=== PATIENT | male | born 1940 | race Caucasian/White ===

== ENCOUNTER 2022-02-27 09:45 | Outpatient (CLI) | payer MEDICARE, BC, SELFPAY ==
[2022-02-27 13:03] LABS: Cholesterol* 173 mg/dL (90-199)
[2022-02-27 13:04] LABS: HDL Cholesterol* 36 mg/dL (>=40); LDL Cholesterol Calculated 110 mg/dL (<100); Triglycerides* 133 mg/dL (40-149)
== END 2022-02-27 09:46 | disposition home or self-care (01) ==
PROVIDERS: PCP Family Medicine; Visit Provider Family Medicine
DX: E78.5 Hyperlipidemia, unspecified (principal)
CPT/HCPCS: 80061

== ENCOUNTER 2022-03-19 02:20 | Emergency (ER) | payer MEDICARE, BC, SELFPAY ==
[2022-03-19] VITALS (26 sets, daily range): BP systolic 133–190; BP diastolic 61–125; PULSE 57–73; RESP 16–22; TEMP 37.1; O2SAT 85–100; BMI 25.8
--- NOTE | 2022-03-19 02:35 | ED_ITS ---
HPI - Chest Pain General Time Seen by Provider: 02:36 Date Seen: 03/19/22 Chief Complaint: Chest Pain Stated Complaint: Chest Pain Time Seen by Provider: 03/19/22 02:24 Source: patient, EMS, RN notes reviewed and old records reviewed Mode of arrival: EMS Limitations: no limitations History of Present Illness HPI narrative: Mr. Daley is a very pleasant 81-year-old gentleman with a history of known coronary artery disease, history of bypass, type 2 diabetes as well as hypertension and hyperlipidemia who comes to the emergency room via EMS for evaluation regarding chest pain. Patient notes the onset of chest pain shortly after midnight. He rated it as 6/10. It was associated with 1 episode of vomiting and this helped ease the discomfort somewhat. Patient did take aspirin 4 baby aspirin at home after calling 911. EMS get give him 1 nitroglycerin and this decreased his chest pain down to 3/10. The chest pain is now dissipated but patient notes some nausea that is persisting. He notes that he has been dealing with what he thinks is indigestion. He blames this on an egg salad sandwich from earlier yesterday. He denies any diarrhea or fever. Patient did have a history of a CABG approximately 5 years ago. No complications from that. He also has hypertension and hyperlipidemia as well as type 2 diabetes. Patient does have a prescription for Cialis. Last used on WednesdayMarch 15. Tonight blood pressure improved from 190 systolic to 122 after nitroglycerin in the field. Patient describes chest pain as lower substernal without radiation to the back jaw or arms. Denies abdominal pain at this time. No dizziness or lightheadedness. Related Data Home Medications Medication Instructions Recorded Confirmed aspirin 81 mg chewable tablet 1 tab PO DAILY 02/27/22 02/27/22 cholecalciferol (vitamin D3) 10 10 mcg PO QDAY 02/27/22 02/27/22 mcg (400 unit) capsule dorzolamide-timolol (PF) 2 %-0.5 % 1 drp ophthalmic (eye) Q12H 02/27/22 02/27/22 eye drops in a dropperette multivitamin (Multiple Vitamins 1 tab PO QAM 02/27/22 02/27/22 tablet) tadalafil 20 mg tablet 20 mg PO ONCE PRN 02/27/22 02/27/22 thiamine HCl (vitamin B1) 100 mg 100 mg PO QDAY 02/27/22 02/27/22 tablet triamcinolone acetonide 0.1 % 1 applic topical BID 02/27/22 02/27/22 topical cream Previous Rx's Medication Instructions Recorded lisinopril 5 mg tablet 5 mg PO BID #180 tabs 02/27/22 metformin 500 mg tablet 500 mg PO BID #180 tabs 02/27/22 metoprolol succinate 25 mg 25 mg PO DAILY #90 tabs 02/27/22 tablet,extended release 24 hr Allergies Allergy/AdvReac Type Severity Reaction Status Date / Time No Known Allergies Allergy Unknown Unknown Uncoded 03/19/22 04:09 Review of Systems Status of ROS Reports: 10 or more systems reviewed and unremarkable except as noted in History and below Narrative COVID 1 month ago. Denies recent travel, calf tenderness, immobility or history of DVT. Const Denies: fever or chills Eyes Denies: change in vision ENMT Denies: throat pain or difficulty swallowing Cardio Reports: chest pain; Denies: edema, swelling of feet/ankles or shortness of breath with exertion Resp Denies: shortness of breath or cough GI Reports: nausea and vomiting; Denies: abdominal pain, diarrhea or difficulty swallowing Denies: painful urination Musculo Denies: back pain, extremity pain or extremity swelling Integ/Breast Denies: rash Neuro Denies: headache, numbness in extremities or weakness in extremities Endo Denies: excessive urination [facility] Medical History Benign paroxysmal positional vertigo H/O sebaceous cyst Surgical History Status post cataract extraction Status post coronary artery bypass graft Social History Smoking Status: Former smoker Do you use any of these nicotine containing products: None How often do you have a drink containing alcohol: 2-4 times a month How often do you have six or more drinks on one occasion: Never AUDIT-C Alcohol total score: 2 Non-prescribed substance use: denies use Little interest or pleasure in doing things: not at all Feeling down, depressed, or hopeless: not at all Exam Narrative Exam Narrative: Patient is alert and oriented. GCS of 15. Face is symmetrical. Appropriate responses. Neck is supple without lymphadenopathy. Heart with a bradycardic rate but regular rhythm. Lungs are clear in all lung de [place]. Chest has well-healed sternal scar. Abdomen is protuberant but soft and nontender. Negative Alvarez sign. Lower extremities with no evidence of edema. Calf without evidence of discomfort with palpation and negative Homans sign. Const Vital Signs, click to edit/add: Vital Signs - 24 hr 03/19/22 02:25 03/19/22 02:37 03/19/22 03:17 Temperature 98.7 F Pulse Rate 59 L Pulse Rate [Left Pulse Oximeter] 57 L Respiratory Rate 16 Blood Pressure 160/68 H Blood Pressure [Left Upper Arm] 135/69 Pulse Oximetry 96 96 97 Oxygen Delivery Method Room Air 03/19/22 03:32 03/19/22 04:02 03/19/22 04:22 Temperature Pulse Rate 59 L 67 60 Pulse Rate [Left Pulse Oximeter] Respiratory Rate Blood Pressure 162/81 H 176/87 H 190/84 H Blood Pressure [Left Upper Arm] Pulse Oximetry 98 96 96 Oxygen Delivery Method 03/19/22 04:27 03/19/22 04:42 03/19/22 05:02 Temperature Pulse Rate 60 61 61 Pulse Rate [Left Pulse Oximeter] Respiratory Rate Blood Pressure 165/85 H 174/80 H 167/81 H Blood Pressure [Left Upper Arm] Pulse Oximetry 96 96 94 Oxygen Delivery Method 03/19/22 05:22 03/19/22 05:42 03/19/22 06:02 Temperature Pulse Rate 61 63 59 L Pulse Rate [Left Pulse Oximeter] Respiratory Rate Blood Pressure 175/85 H 173/79 H 181/85 H Blood Pressure [Left Upper Arm] Pulse Oximetry 95 94 96 Oxygen Delivery Method 03/19/22 06:15 03/19/22 07:02 Temperature Pulse Rate 59 L 60 Pulse Rate [Left Pulse Oximeter] Respiratory Rate Blood Pressure 160/78 H Blood Pressure [Left Upper Arm] Pulse Oximetry 95 93 Oxygen Delivery Method Documenting provider has reviewed patient's vital signs: yes Course Course Hospital Course: Patient noted to have the onset of chest pain associated with nausea 1 episode of vomiting and partially relieved by nitroglycerin. Initial troponin is negative. EKG shows right bundle-branch block. Will do formal cardiac rule out workup. With 1st set of troponin being negative will allow GI cocktail. Otherwise, chest x-ray, CBC, comprehensive panel, magnesium, IV and Zofran admi nistration. Vital Signs Vital signs: Initial Vital Signs Temperature 98.7 F 03/19/22 02:25 Temperature Source Temporal Artery Scan 03/19/22 02:25 Pulse Rate 57 L 03/19/22 02:25 Pulse Rhythm 03/19/22 02:25 Respiratory Rate 16 03/19/22 02:25 Blood Pressure 135/69 03/19/22 02:25 Blood Pressure Mean 91 03/19/22 02:25 Blood Pressure Position Sitting 03/19/22 02:25 Pulse Oximetry 96 03/19/22 02:25 Oxygen Delivery Method 03/19/22 02:25 Vital Signs Temperature 98.7 F 03/19/22 02:25 Pulse Rate 57 L 03/19/22 02:25 Respiratory Rate 16 03/19/22 02:25 Blood Pressure 135/69 03/19/22 02:25 Pulse Oximetry 96 03/19/22 02:25 Oxygen Delivery Method 03/19/22 02:25 Temperature 98.7 F 03/19/22 02:25 Pulse Rate 60 03/19/22 07:02 Respiratory Rate 16 03/19/22 02:25 Blood Pressure 160/78 H 03/19/22 07:02 Pulse Oximetry 93 03/19/22 07:02 Oxygen Delivery Method 03/19/22 02:25 MDM - Chest Pain MDM Narrative Medical decision making narrative: 1. Chest pain-EKGs are reassuring and cardiac enzymes are negative x2. I believe this is most likely biliary colic. Chest CT with no evidence acute aortic pathology. Patient did take aspirin 324 mg at home prior to EMS ride to [facility]. Patient noted discomfort in the abdominal area after chest pain relieved along with nausea. Toradol 15 mg IV given and patient has improvement of discomfort. Nausea improved with Zofran 4 mg IV. 2. Cholelithiasis-noted initially on CT these are confirmed on ultrasound along with gallbladder wall being at the upper limits of normal. No pericholecystic fluid. HIDA scan pending per surgeon request. 3. Disposition-signed out to my partner Dr. Devine for further disposition. HIDA scan scheduled at 1100 hours. Medical Records Data Attestation: I reviewed the patient's medical records. Lab Data Attestation: I reviewed the patient's lab results. Labs: Lab Results 03/19/22 03/19/22 03/19/22 Range/Units 02:30 02:30 02:37 WBC 12.38 H (4.50-11.00) K/uL RBC 4.75 (4.30-5.90) m/uL Hgb 13.2 L (13.5-17.5) gm/dL Hct 41.2 (37.0-53.0) % MCV 87 (80-100) fL MCH 28 (26-34) pg MCHC 32 (32-36) gm/dL RDW Coeff of Elizabeth 14.5 (11.5-15.5) % Plt Count 215 (140-440) K/uL Neut % (Auto) 81.7 H (42.0-72.0) % Lymph % (Auto) 9.4 L (20-44) % [place] % (Auto) 6.9 (0.0-11.0) % Eos % (Auto) 1.1 (0.0-7.0) % Baso % (Auto) 0.2 (0.0-3.0) % Neut # (Auto) 10.10 H (1.7-7.0) K/uL Lymph # (Auto) 1.20 (0.90-2.90) K/uL [place] # (Auto) 0.90 (0.00-0.90) K/UL Eos # (Auto) 0.10 (0.00-0.50) K/uL Baso # (Auto) 0.00 (0.00-0.30) K/uL Abs Immat Gran (auto) 0.10 (0.00-0.30) K/uL Imm/Tot Granulo (auto) 0.7 % Sodium 139 (135-149) mmol/L Potassium 3.8 (3.6-5.1) mmol/L Chloride 102 (96-114) mmol/L Carbon Dioxide 28 (20-32) mmol/L BUN 26 (7-30) mg/dL Creatinine 0.8 (0.5-1.5) mg/dL Estimated Creat Clear 57.79 Estimated GFR 88 ml/min Glucose 189 H (60-115) mg/dL Calcium 9.0 (8.4-10.6) mg/dL Magnesium 1.8 (1.5-2.6) mg/dL Total Bilirubin 0.4 (0.1-1.5) mg/dL AST 26 (12-35) U/L ALT 24 (4-50) U/L Alkaline Phosphatase 106 (40-150) U/L Total Protein 6.9 (6.0-8.3) g/dL Albumin 4.1 (3.3-5.0) g/dL Amylase 67 (18-89) U/L Lipase 106 (23-300) U/L POC Troponin I 0.00 L (0.01-0.04) ng/ml 03/19/22 Range/Units 05:53 WBC (4.50-11.00) K/uL RBC (4.30-5.90) m/uL Hgb (13.5-17.5) gm/dL Hct (37.0-53.0) % MCV (80-100) fL MCH (26-34) pg MCHC (32-36) gm/dL RDW Coeff of Elizabeth (11.5-15.5) % Plt Count (140-440) K/uL Neut % (Auto) (42.0-72.0) % Lymph % (Auto) (20-44) % [place] % (Auto) (0.0-11.0) % Eos % (Auto) (0.0-7.0) % Baso % (Auto) (0.0-3.0) % Neut # (Auto) (1.7-7.0) K/uL Lymph # (Auto) (0.90-2.90) K/uL [place] # (Auto) (0.00-0.90) K/UL Eos # (Auto) (0.00-0.50) K/uL Baso # (Auto) (0.00-0.30) K/uL Abs Immat Gran (auto) (0.00-0.30) K/uL Imm/Tot Granulo (auto) % Sodium (135-149) mmol/L Potassium (3.6-5.1) mmol/L Chloride (96-114) mmol/L Carbon Dioxide (20-32) mmol/L BUN (7-30) mg/dL Creatinine (0.5-1.5) mg/dL Estimated Creat Clear Estimated GFR ml/min Glucose (60-115) mg/dL Calcium (8.4-10.6) mg/dL Magnesium (1.5-2.6) mg/dL Total Bilirubin (0.1-1.5) mg/dL AST (12-35) U/L ALT (4-50) U/L Alkaline Phosphatase (40-150) U/L Total Protein (6.0-8.3) g/dL Albumin (3.3-5.0) g/dL Amylase (18-89) U/L Lipase (23-300) U/L POC Troponin I 0.01 (0.01-0.04) ng/ml Imaging Data Chest x-ray: Attestation: I have reviewed the pertinent imaging results. My impression: By my read no acute infiltrates or widened mediastinum. Radiologist's impression: Cardiovascular and mediastinum: Heart size and vasculature are normal in caliber and appearance. Postsurgical changes of CABG. Lungs and pleural spaces: Lungs are clear. No sign of infiltrate or mass. No sign of pleural effusion. No pneumothorax.? Bones and soft tissues: No significant findings. IMPRESSION: No acute airspace disease. CT Chest/Ab/Pelvis: My impression: Gallstones present. Radiologist's impression: Chest: Normal aortic caliber. Central pulmonary arteries patent. Exam is not tailored for assessment of pulmonary embolus. Sternotomy. Coronary artery bypass graft changes. Calcified granuloma subpleural lateral left upper lobe. Mild reticular peripheral interstitial prominence suggesting some mild chronic fibrosis. No acute cardiopulmonary disease. No fracture. Abdomen and pelvis: Small layering calcified gallstones in the slightly enlarged gallbladder lumen. No wall thickening or inflammation. No ductal dilatation. No dilated or inflamed large or small bowel. Left colon diverticula. Normally enhancing kidneys. Prominent atherosclerosis of the non aneurysmal aorta. No significant bone lesion. IMPRESSION: 1. No significant acute findings to account for reported symptoms. 2. Cholelithiasis. 3. Colonic diverticulosis. 4. Moderately prominent diffuse atherosclerotic vascular calcification. ECG Data Attestation: I personally reviewed and interpreted this ECG as follows: ECG interpretation date: 03/19/22 ECG interpretation time: 02:37 Interpretation: EKG 1. Shows sinus bradycardia at a rate of 56. Evidence of right bundle-branch block. Otherwise I do not note any acute ST or T-wave changes. Second EKG by my read shows sinus rhythm at a rate of 61. Right bundle-branch block present Discharge Plan Discharge Prescriptions: No Action aspirin 81 mg tablet,chewable 1 tab PO DAILY multivitamin [Multiple Vitamins] Tablet 1 tab PO QAM tadalafil 20 mg tablet 20 mg PO ONCE PRN Rx Instructions: TAKE ONE TABLET 30 MIN TO 36 HRS PRIOR TO INTERCOURSE thiamine HCl (vitamin B1) 100 mg tablet 100 mg PO QDAY triamcinolone acetonide 0.1 % cream 1 applic topical BID cholecalciferol (vitamin D3) 10 mcg (400 unit) capsule 10 mcg PO QDAY dorzolamide-timolol (PF) 2-0.5 % dropperette 1 drp ophthalmic (eye) Q12H lisinopril 5 mg tablet 5 mg PO BID Qty: 180 3RF metformin 500 mg tablet 500 mg PO BID Qty: 180 0RF Rx Instructions: Pt taking 1 tab in the AM and 2 tabs in the PM metoprolol succinate 25 mg tablet extended release 24 hr 25 mg PO DAILY Qty: 90 3RF Follow Up/Referrals: Maxwell Quinones MD [Primary Care Provider] -
--- NOTE | 2022-03-19 02:37 | CRLHL7_ITS ---
For Patients: As a result of the Century Cures Act, medical imaging exams and procedure reports are released immediately into your electronic medical record. You may view this report before your referring provider. If you have questions, please contact your health care provider. INDICATION: Chest pain. TECHNIQUE: Chest 1 view. COMPARISON: None. FINDINGS: Cardiovascular and mediastinum: Heart size and vasculature are normal in caliber and appearance. Postsurgical changes of CABG. Lungs and pleural spaces: Lungs are clear. No sign of infiltrate or mass. No sign of pleural effusion. No pneumothorax. Bones and soft tissues: No significant findings. IMPRESSION: No acute airspace disease. Dictated by Eric Spears MD @ 03/19/2022 3:08:40 AM (Electronically Signed)
[2022-03-19] MEDS: ONDANSETRON 2 MG/ML inj 4 MG IVP (02:41)
--- OUTSIDE RECORDS SUMMARY | 2022-03-19 02:53 | XMS_ITS | Encounter Summary ---
:1940 Author Organization [facility] Address [address] [place] [address] Care Team Providers Name Role Phone Unavailable Primary Care Provider Unavailable Encounter Details Date Type Department Care Team Description 07/02/2020 Immunization Business Service Freda Kaur Encount er For COVID-19 Center in [place] Vaccine Immunization [place] [id number] [facility] [address] [place] [id number] Social History Tobacco Use Types Packs/Day Years Used Date Smoking Tobacco: Former Sex Assigned at Date Recorded Not on file documented as of this encounter Plan of Treatment Not on filedocumented as of this encounter Visit Diagnoses Diagnosis Encounter For COVID-19 Vaccine Immunizat ion documented in this encounter
--- OUTSIDE RECORDS SUMMARY | 2022-03-19 02:53 | XMS_ITS | Encounter Summary ---
:1940 Author Organization [facility] Address [address] [place] [address] Care Team Providers Name Role Phone Unavailable Primary Care Provider Unavailable Reason for Referral Specialty Diagnoses / Procedures Referred By Contact Refer red To Contact Sugar Soler M.D. [facility] Region [address] [place] [address] Referral ID Status Reason Start Date Expiration Date Visits Requ ested Visits Authorized Encounter Details Date Type Department Care Team Description 02/03/2021 Orders Only [facility] PCP [facility] M[facility] Richie Sheikh D.O. [address] [place] [address] (Wo rk) Social History Tobacco Use Types Packs/Day Years Used Date Smoking Tobacco: Former Sex Assigned at Date Recorded Not on file documented as of this encounter Plan of Treatment Scheduled Referrals Name Type Priority Associated Order Schedule Diagnoses Covid immunization Outpatient Referral Routine Ex pected: office visit Booster [phone] (Approximate), Expires: 02/03/2022 documented as of this encounter Visit Diagnoses Not on filedocumented in this encounter
--- OUTSIDE RECORDS SUMMARY | 2022-03-19 02:53 | XMS_ITS | Encounter Summary ---
:1940 Author Organization [facility] Address [address] [place] [address] Care Team Providers Name Role Phone Unavailable Primary Care Provider Unavailable Encounter Details Date Type Department Care Team Description 04/02/2015 Hospital Encounter HX [facility] MAN Nate Hawkins M.D. [address] [place] [address] [phone] (Wo rk) Social History Tobacco Use Types Packs/Day Years Used Date Smoking Tobacco: Never Assessed Sex Assigned at Date Recorded Not on file documented as of this encounter Last Filed Vital Signs Vital Sign Reading Time Taken Comments Blood Pressure 147/83 04/02/2015 12:30 PM HAND BINDER CUTTER Pulse 58 04/02/2015 12:30 PM HAND BINDER CUTTER Temperature - - Respiratory Rate 20 04/02/2015 12:30 PM HAND BINDER CUTTER Oxygen Saturation - - Inhaled Oxygen Concentration - - Weight - - Height - - Body Mass Index - - documented in this encounter Discharge Summaries Toma Floyd R.N. - 04/02/2015 1:30 PM CST ED Discharge Instructions [place] [address] [place] [address] Name: MO DALEY Date of : 1940 12:00 PM Visit Date: 04/02/2015 11:01 AM [facility] Number: [id number] Address: [id number] [address] [facility] [phone] Primary Care Provider: PCP, ELSEWHERE IMPORTANT: [facility] in [place] would like to thank you for allowing us to assistyou with your healthcare needs. The following includes patient education materials and information regarding your injury/illness. Diagnosis: Follow-Up Instructions: With: Address: When: CALL 911 IMMEDIATELY IF 3 NITRO PILLS ARE REQUIRED TO CONTROL YOUR PAIN OR IF YOUR PAIN DOES NOT IMPROVE. Your Upcoming Appointments: Date Time Location Provider 04/16/2015 11:00 MAQN Echo MAQN Echo 1 Patient Education Materials: Fast-Acting Nitroglycerin Nitroglycerin relieves angina (chest pain) by getting more blood and oxygen to your heart. Fast-acting nitroglycerin can stop an angina attack. Follow the steps below for taking fast-acting nitroglycerin. Note: Your healthcare provider may give you slightly different instructions. If so, follow them carefully. To Stop an Angina Attack Sit down before you take your nitroglycerin. The medication may make you feel dizzy. If you use tablets: ?? Place one tablet under your tongue. Or place it between your lip and gum or between your cheek and gum. ?? Let the tablet dissolve all the way. Do not swallow or chew the tablet. ?? Do not eat, drink, smoke, or chew tobacco as the tablet is dissolving. If you use spray: ?? Open your mouth and hold the sprayer just in front of your mouth. ?? Press the button on the top. [place] once on or under your tongue. Do not inhale. ?? Close your mouth. Then wait a few seconds before you swallow. After taking one tablet or spraying once: ?? Continue sitting for 5 minutes. ?? If the angina goes away completely, rest for a while and continue your normal routine. Call 911 if your angina lasts longer than 5 minutes and 1 tablet or 1 spray has not relieved it. Do not delay--you may be having a heart attack, also known as acute myocardial infarction, or AMI! Afteryou call 911, take a second tablet. Or, spray a second time. Wait another 5 minutes. If the angina still does not go away, take a third tablet, or spray a third time. Do not take more than 3 tablets, or spray more than 3 times, within 15 minutes. Stay on the phone with 911 for further instructions. Precautions ?? Limit the amount of alcohol you drink. Too much alcohol can cause dizziness or fainting. ?? Tell your healthcare provider about any medications, supplements, or herbs you use. Nitroglycerincan interact with other medications and cause serious problems. NOTE: Do not take Viagra, Levitra, or Cialis at any time if you are on nitroglycerin treatment. The combination of nitroglycerin with Viagra, Levitra, or Cialis can cause a severe drop in blood pressure. This can lead to dizziness, fainting, heart attack, or stroke. ?? Check the expiration date. Nitroglycerin can lose its effectiveness over time. ?? Tell your doctor if your angina attacks last longer, occur more often, or are more severe. ?? [address] [address]. All rights reserved. This information is not intended as a substitute for professional medical care. Always follow your healthcare professional's instructions. What Is Angina? Angina is a warning that the heart muscle is not getting enough oxygen-rich blood. Medication, certain medical procedures, and lifestyle changes can help control angina. Talk to your doctor about how to prevent angina and what to do if you get it. How Does Angina Feel? Angina is often described as chest pain, but this can be misleading. Angina is not always painful, and it isnt always felt in the chest. Angina might feel like this: ?? Discomfort, aching, tightness, or pressure that comes and goes. You may feel this in your chest, back, abdomen, arm, shoulder, neck, or jaw. ?? More fatigue than usual for no clear reason ?? Shortness of breath while doing something that used to be easy ?? Heartburn, indigestion, nausea, or sweating If any of your symptoms lasts for more than a few minutes, or if they go away and come back, you could be having a heart attack, also known as acute myocardial infarction, or AMI. Call 911 right away! When Does Angina Happen? ?? Angina usually happens during activity. It can also occur when youre upset or after a large meal. ?? If angina starts occurring more frequently, lasts longer, or causes more discomfort, you may haveunstable angina. Its a sign that your heart problem may be getting worse. ?? [facility], [address] [place] [address]. All rights reserved. This information is not intended as a substitute for professional medical care. Always follow your healthcare professional's instructions. Consider Using Patient Online Services Patient Online Services is a secure online and Mobile application that lets you: ?? View lab and test results ?? View portions of your medical record including clinical notes, immunizations and discharge summaries ?? Request an appointment or medication refill ?? Review your appointment schedule ?? Send secure messages to your care team Its easy to create an account if you dont have one. Go to [email or web address] and click on Create Your Account. Then, follow the directions to complete the online form. Youll be asked for your [facility] number which you can find at the top of this document. ED Tests and Procedures: Order Status EKG-Lab Completed Automated Diff-5 Part Completed Basic Metabolic Panel Completed CBC (includes Auto Differential) Completed Troponin T Completed XR Chest 1 view portable Completed Discharge Prescriptions & Home Medications: Medication/Strength Dose Route Frequency Indications/Special Instructions/Comments/Notes multivitamin with minerals (Vitamin D with Minerals oral tablet, chewable) 1 tab(s) once a day aspirin (aspirin) 325 mg Oral once a day multivitamin (B-Complex 50) 1 tab(s) Oral once a day ascorbic acid (Vitamin C) multivitamin (multivitamin) Oral once a day nitroglycerin (nitroglycerin 0.4 mg sublingual tablet) 0.4 mg Sublingual every 5 minutes as needed for chest pain dorzolamide-timolol ophthalmic (dorzolamide-timolol ophthalmic) 1 drop Eye(Left) two times a day dorzolamide ophthalmic (dorzolamide ophthalmic) 1 drop(s) Eye(Left) two times a day latanoprost ophthalmic (Xalatan) 1 drop(s) Eye(Left) once a day (at bedtime) metoprolol (Toprol-XL 25 mg oral tablet, extended release) 25 mg Oral once a day lisinopril (lisinopril 20 mg oral tablet) 20 mg Oral once a day glipiZIDE (glipiZIDE 10 mg oral tablet, extended release) 10 mg Oral once a day metFORMIN (metFORMIN 500 mg oral tablet) 1 -2 tab(s) Oral two times a day Attention: If you have any medications at home not on this list, DO NOT take them until you contact your provider for clarification. Give a copy of your medication list to your primary care provider. Update your medication list any time medications or doses are changed and carry your medication list at all times in case of emergency. IMPORTANT: We examined and treated you today on an emergency basis only. This was not a substitute for, or an effort to provide, complete medical care. In most cases, you must let your doctor check youagain. Tell your doctor about any new or lasting problems. We cannot recognize and treat all injuries or illnesses in one Emergency Department visit. If you had special tests, such as EKG's or X- rays, we will review them again within 24 hours. We will call you if there are any new suggestions. Please follow the instructions above carefully. If you are being transferred to another facility, your follow up plan of care will be determined by the receiving facility. If you are a patient that is being discharged from the Emergency Department after receiving narcotics or other medications that may impair your judgment you may be a risk to yourself or others if you operate a motor vehicle. We recommend that you arrange a ride home with a responsible democrat. I, MORE, MO GARNETT , or responsible democrat have received this information and my questions havebeen answered. I have discussed any challenges I see with this plan with the nurse or physician. Patient Signature or Responsible Green Party/Relationship Date Time Provider Signature Date Time IMPORTANT: We examined and treated you today on an emergency basis only. This was not a substitute for, or an effort to provide, complete medical care. In most cases, you must let your doctor check youagain. Tell your doctor about any new or lasting problems. We cannot recognize and treat all injuries or illnesses in one Emergency Department visit. If you had special tests, such as EKG's or X- rays, we will review them again within 24 hours. We will call you if there are any new suggestions. Please follow the instructions above carefully. If you are being transferred to another facility, your follow up plan of care will be determined by the receiving facility. If you are a patient that is being discharged from the Emergency Department after receiving narcotics or other medications that may impair your judgment you may be a risk to yourself or others if you operate a motor vehicle. We recommend that you arrange a ride home with a responsible democrat. I, MO DALEY , or responsible democrat have received this information and my questions havebeen answered. I have discussed any challenges I see with this plan with the nurse or physician. Patient Signature or Responsible Green Party/Relationship Date Time Provider Signature Date Time This document has images extracted. Please consider using [employer] for all your patient education needs. Source: [facility] Via [employer] TechnologiesCHART Document Id: [id number] BINDER CUTTER Toma Floyd R.N. - 04/02/2015 1:30 PM CST ED Depart Summary [facility] Emergency Department Clinical Discharge Summary PERSON INFORMATION Name MO DALEY Age 74 Years 1940 12:00 PM Sex Male Language Togolese PCP PCP, ELSEWHERE Marital Status [id number] Visit Id Visit Reason Chest pain; Chest pain; chest pain on exertion Specialty Enc Type Emergency Med Service Emergency Medicine Referred by Track Group MAQN ED Discharge 04/02/2015 12:45 PM Tracking Id [id number] Checkout 04/02/2015 12:45 PM Checkin 04/02/2015 11:01 AM Acuity 3 -Urgent Dispo Type * Discharged to Home or Self Care Arrival 04/02/2015 11:01 AM Reg Status LOS 000 01:44 Address: [address] [place] [phone] Comment: PROVIDER INFORMATION Provider Role Provider Contact Time MIGUEL BRCIE STUNTMAN Nurse 04/02/15 11:08 NATE GUZMAN MD ED Provider 04/02/15 11:15 TOMA FLOYD STUNTMAN Nurse 04/02/15 11:55 DIAGNOSIS Comment: PATIENT EDUCATION INFORMATION Instructions: Fast-Acting Nitroglycerin; What Is Angina? Follow up: With: Address: When: CALL 911 IMMEDIATELY IF 3 NITRO PILLS ARE REQUIRED TO CONTROL YOUR PAIN OR IF YOUR PAIN DOES NOT IMPROVE. Source: [employer] Document Id: [id number] BINDER CUTTER documented in this encounter Nursing Notes Toma Floyd R.N. - 04/02/2015 3:13 PM CST Stress Echo Pt. was contacted and informed that his stress echo was moved up to Wednesday, 04/08 at 10:45 am. Instructed patient to check in at the front desk officer and that the stress test would be on 2nd floor in cardiology. Electronically Signed By: TOMA FLOYD RN On: 04/02/2015 03:16 PM Source: [employer] Document Id: [id number] BINDER CUTTER documented in this encounter ED Notes Toma Floyd R.N. - 04/02/2015 1:29 PM CST ED Disposition Summary ED Disposition Summary Entered On: 04/02/2015 13:29 HAND BINDER CUTTER Performed On: 04/02/2015 13:29 HAND BINDER CUTTER by TOMA FLOYD RN ED Disposition Summary Accompanied By : Alone Mode of Discharge : Ambulatory Transportation : Private vehicle Printed Discharge Instructions Given to Patient : Yes Patient Status at Discharge from ED : Improved TOMA FLOYD RN - 04/02/2015 13:29 HAND BINDER CUTTER Source: [employer] Document Id: [id number] HAND BINDER CUTTER!7 BINDER CUTTER Shahida Sorto R.N. - 04/02/2015 12:31 PM CST ED Nurse Reassess ED Nurse Reassess Entered On: 04/02/2015 12:31 HAND BINDER CUTTER Performed On: 04/02/2015 12:31 HAND BINDER CUTTER by SHAHIDA SORTO RN Pain Assessment Pain Symptoms : No SHAHIDA SORTO RN - 04/02/2015 12:31 HAND BINDER CUTTER Source: [facility] POWERCHART Document Id: [id number] HAND BINDER CUTTER!3 BINDER CUTTER Nate Guzman M.D. - 04/02/2015 11:16 AM CST Chest pain Document Contains Addenda Patient: MO DALEY Age: 74 years Sex: Male : 1940 Author: NATE GUZMAN MD Attachments: None Basic Information Time seen: Immediately upon arrival. History source: Patient. Arrival mode: Private vehicle. History limitation: None. Additional information: Chief Complaint from Nursing Triage Note : Chief Complaint Description 04/02/2015 11:09 HAND BINDER CUTTER Chief Complaint Description Patient presents stating he has chest pain with activity; today it happened when he walked 100 [address] his barn. Intermittent pain with exertion over last 2-3 days. Currently denies chest pain or dizziness. . History of Present Illness The patient presents with chest pain. The onset was occurs with activity over the last 3 days - no pain at rest. The course/duration of symptoms is fluctuating in intensity. Location: Anterior substernal chest. Radiating pain: none. The character of symptoms is pressure. The degree at onset was moderate. The degree at maximum was moderate. The degree at present is none. The exacerbating factor is exertion. The relieving factor is rest. Risk factors consist of hypertension, hyperlipidemia and pre-diabetes. Prior episodes: as noted above. Therapy today full strength aspirin prior to arrival. Associated symptoms: none. Additional history: pt admits he does not always take his medications as prescribed. Review of Systems Constitutional symptoms: Negative except as documented in HPI. Skin symptoms: Negative except as documented in HPI. Eye symptoms: Negative except as documented in HPI. ENMT symptoms: Negative except as documented in HPI. Respiratory symptoms: Negative except as documented in HPI. Cardiovascular symptoms: Negative except as documented in HPI. Gastrointestinal symptoms: Negative except as documented in HPI. Additional review of systems information: All other systems reviewed and otherwise negative. Health Status Allergies: Allergic Reactions (Selected) No Known Medication Allergies. Past Medical/ Family/ Social History Medical history: No active or resolved past medical history items have been selected or recorded.. Surgical history: No active procedure history items have been selected or recorded.. Family history: No family history items have been selected or recorded.. Social history: Tobacco use: Denies. Physical Examination General: Alert and no acute distress. Skin: Warm, intact and moist. Head: Normocephalic. Neck: Supple. Cardiovascular: Regular rate and rhythm. Respiratory: Lungs are clear to auscultation. Gastrointestinal: Soft, Nontender, Non distended and Normal bowel sounds. Neurological: Alert and oriented to person, place, time, and situation and No focal neurological deficit observed. Lymphatics: No lymphadenopathy. Psychiatric: Cooperative. Medical Decision Making OrdersLaunch Orders Laboratory: Troponin T (Order Processing): Stat, 04/02/2015 11:16 HAND BINDER CUTTER, Once CBC (includes Auto Differential) (Order Processing): Stat, 04/02/2015 11:16 HAND BINDER CUTTER, Once Basic Metabolic Panel (Order Processing): Stat, 04/02/2015 11:16 HAND BINDER CUTTER, Once Diagnostic Tests: EKG (Order Processing): 04/02/2015 11:16 HAND BINDER CUTTER, Reason: EKG, Stat, Stat, MAQN ED. Electrocardiogram:* Final Report * Muse[employer] Test Reason : EKG Blood Pressure : / mmHG Vent. Rate : 065 BPM Atrial Rate : 065 BPM P-R Int : 140 ms QRS Dur : 092 ms QT Int : 380 ms P-R-T Axes : 037 -20 005 degrees QTc Int : 395 ms Normal sinus rhythm Normal ECG No previous ECGs available Referred By: NATE GUZMAN Confirmed By:ESDRAS ROMANO JR MD *Insert Addendum Here: . Results review:Lab results : Lab View 04/02/2015 11:15 HAND BINDER CUTTER Hgb 15.2 g/dL Hct 45.8 % WBC 7.8 x10(9)/L RBC 5.13 x10(12)/L MCV 89.3 fL RDW 14.2 % Platelet 249 x10(9)/L Neutro Absolute 5.34 10(9)/L Lymph Absolute 1.49 x10(9)/L [place] Absolute 0.78 x10(9)/L Eos Absolute 0.18 x10(9)/L Baso Absolute 0.03 x10(9)/L Differential? Auto Sodium Lvl 137 mmol/L Potassium Lvl 4.2 mmol/L Chloride 99 mmol/L CO2 26 mmol/L AGAP 12 mmol/L Glucose Lvl 169 mg/dL HI Creatinine 0.7 mg/dL LOW EGFR (MDRD) >60.0 mL/min/SA EGFR (MDRD) >60.0 mL/min/SA BUN 16 mg/dL Calcium Lvl 9.6 mg/dL Troponin-T <0.010 ng/mL . Impression and Plan Diagnosis angina Plan Condition: Stable. Disposition: Discharged: Time 04/02/2015 12:34:00, to home. Prescriptions: Prescription [facility]: nitroglycerin 0.4 mg sublingual tablet (Prescribe): 0.4 mg, 1 tab(s), SL, q5min, PRN: chest pain, 100 tab(s), 11 Refill(s). Patient was given the following educational materials: What Is Angina?, Fast- Acting Nitroglycerin. Follow up with: ; CALL 911 IMMEDIATELY IF 3 NITRO PILLS ARE REQUIRED TO CONTROL YOUR PAIN OR IF YOURPAIN DOES NOT IMPROVE.. Counseled: Patient, Regarding diagnosis, Regarding diagnostic results, Regarding treatment plan, Regarding prescription. Notes: I have recommended the pt be admitted for cardiac evaluation though he refuses. Risks including ID and were discussed with patient who is unwavering in his decision.. Electronically Signed By: NATE GUZMAN MD On: 04/02/2015 12:38 PM Modified by and Electronically Signed by: NATE GUZMAN MD On: 04/02/2015 12:38 PM Source: [facility] POWERCHART Document Id: [id number]} BINDER CUTTER Miguel Brice R.N. - 04/02/2015 11:09 AM CST ED Primary Assessment Document Has Been Updated ED Primary Assessment Entered On: 04/02/2015 11:14 HAND BINDER CUTTER Performed On: 04/02/2015 11:09 HAND BINDER CUTTER by MIGUEL BRICE RN Reason For Visit (As Of: 04/02/2015 11:14:07 HAND BINDER CUTTER) Diagnoses(Active) Chest pain Date: 04/02/2015 ; Diagnosis Type: Reason For Visit ; Confirmation: Complaint of ; Clinical Dx: Chest pain ; Classification: Medical ; Clinical Service: Non-Specified ; Code: PNED ; Probability: 0 ; Diagnosis Code: [id number] Triage Chief Complaint Description : Patient presents stating he has chest pain with activity; today it happened when he walked 100 [address] to [address] barn. Intermittent pain with exertion over last 2-3 days. Currently denies chest pain or dizziness. Information Given By : Patient Accompanied By : Alone Mode of Arrival ED : Private vehicle Track : Medical Languages : Togolese Treatments Prior to Arrival : Aspirin Is Patient Female and 13-50 no hysterectomy : No MIGUEL BRICE RN - 04/02/2015 11:09 HAND BINDER CUTTER Pain Assessment Pain Symptoms : No MIGUEL BRICE RN - 04/02/2015 11:09 HAND BINDER CUTTER Comfort Measures Comfort Measures Grid [place] Application : Yes Comfortable Environment : Yes MIGUEL BRICE RN - 04/02/2015 11:09 HAND BINDER CUTTER ED Physician Notification Time ED Physician Notification Time : 04/02/2015 11:10 HAND BINDER CUTTER MIGUEL BRICE RN - 04/02/2015 11:09 HAND BINDER CUTTER GATO GATO Level 1 : No GATO Level 2 : Yes MIGUEL BRICE RN - 04/02/2015 11:09 HAND BINDER CUTTER DCP GENERIC CODE Tracking Acuity : 3 -Urgent Tracking Group : MAQN ED MIGUEL BRICE RN - 04/02/2015 11:09 HAND BINDER CUTTER Allergy (As Of: 04/02/2015 11:14:08 HAND BINDER CUTTER) Allergies (Active) No Known Medication Allergies Estimated Onset Date: Unspecified ; Created By: MIGUEL BRICE RN; Reaction Status: Active ; Category: Drug ; Substance: No Known Medication Allergies ; Type: Allergy ;Updated By: MIGUEL BRICE RN; Reviewed Date: 04/02/2015 11:12 HAND BINDER CUTTER ID Screen Drug Resistant Organism : No Travel Within Last 21 Days : No Contact with someone with Ebola : No MIGUEL BRICE RN - 04/02/2015 11:09 HAND BINDER CUTTER TB Symptoms Grid Bloody Sputum : No Fatigue : No Fever : No Loss of Appetite : No Night Sweats : No Persistent Cough Greater Than 3 Weeks : No Weight Loss : No MIGUEL BRICE RN - 04/02/2015 11:09 HAND BINDER CUTTER Alcohol and Drug Use : No Employee of Institutional Living Environment : No Health Care Employee : No History of Exposure to TB : No History of Positive Chest X-Ray for TB : No History of Positive TB Skin Test : No Homeless : No Known Immunosuppression : No Recent Immigrant : No Resident of Institutional Living Environment : No MIGUEL BRICE RN - 04/02/2015 11:09 HAND BINDER CUTTER Immunizations Pneumovac : Unknown Influenza : Last year MIGUEL BRICE RN - 04/02/2015 11:09 HAND BINDER CUTTER Respiratory Airway : Patent Respirations : Unlabored Respiratory Pattern : Regular MIGUEL BRICE RN - 04/02/2015 11:09 HAND BINDER CUTTER Cardiovascular Heart Rhythm : Regular Skin Color : Normal for ethnicity Skin Description : Dry Skin Temperature : Warm MIGUEL BRICE RN - 04/02/2015 11:09 HAND BINDER CUTTER Neurological Last Well Time Known : Not applicable Level of Consciousness : Alert Orientation : Oriented x 3 Characteristics of Speech : Appropriate for age Neuro Patient Stated Symptoms : None Gait : Steady Swallowing Difficulty/Aspiration Risk : None MIGUEL BRICE RN - 04/02/2015 11:09 HAND BINDER CUTTER ED Psychosocial Affect/Behavior : Calm, Cooperative, Appropriate Domestic Abuse Concerns : None Behavioral Health Screen/Safety Assmt : No MIGUEL BRICE RN - 04/02/2015 11:09 HAND BINDER CUTTER Gastrointestinal Nutrition ED : Adequate MIGUEL BRICE RN - 04/02/2015 11:09 HAND BINDER CUTTER /OB Assessment Patient Stated Symptoms : None MIGUEL BRICE RN - 04/02/2015 11:09 HAND BINDER CUTTER Integumentary Integumentary Patient Stated Symptoms : None Skin Turgor : Elastic Skin Integrity : Intact Mucous Membrane Color : [place] Skin Color : Normal for ethnicity Skin Description : Dry MIGUEL BRICE RN - 04/02/2015 11:09 HAND BINDER CUTTER Musculoskeletal Fall Prevention Education Provided : Yes MIGUEL BRICE RN - 04/02/2015 11:09 HAND BINDER CUTTER Social Habits Tobacco Use/Currently Using : No Tobacco Use/Last 12 months : No Smoking Status : Former smoker MIGUEL BRICE RN - 04/02/2015 11:09 HAND BINDER CUTTER Source: [facility] [employer] Document Id: [id number] HAND BINDER CUTTER!88 BINDER CUTTER documented in this encounter Miscellaneous Notes Miscellaneous - Blanca Palomares R.N. - 04/03/2015 2:24 PM CST Communication Note Communication Note Entered On: 04/03/2015 14:25 HAND BINDER CUTTER Performed On: 04/03/2015 14:24 HAND BINDER CUTTER by BLANCA PALOMARES RN Communication Assessment Communication Note : contract writer accessed pt's chart to get the ED MD's note to give to pt's primary care doctor, so patient can have a stress test. BLANCA PALOMARES RN - 04/03/2015 14:24 HAND BINDER CUTTER Source: [facility] [employer] Document Id: [id number] HAND BINDER CUTTER!3 BINDER CUTTER Miscellaneous - Conversion, Historical Provider Ser - 04/02/2015 4:10 PM HAND BINDER CUTTER Stress ECHO From: ALEXIA GUTIERREZ To: [email or web address]; Sent: 04/02/2015 16:10:36 HAND BINDER CUTTER Subject: Stress ECHO patient is booked right now in [place] for a Stress Test on 04/16/2015 He wants to know if [facility] could get him in any sooner? Informed Caller that I believe May was the next available - just double checking No need to call patient unless we can get him in sooner in [place] Thank you Source: [facility] POWERCHART Document Id: [id number] Miscellaneous - Toma Floyd R.N. - 04/02/2015 1:29 PM CST Valuables/Belongings Valuables/Belongings Entered On: 04/02/2015 13:29 HAND BINDER CUTTER Performed On: 04/02/2015 13:29 HAND BINDER CUTTER by TOMA FLOYD RN Valuables/Belongings Belongings Sent Home With : patient TOMA FLOYD RN - 04/02/2015 13:29 HAND BINDER CUTTER Source[facility] Document Id: [id number] HAND BINDER CUTTER!3 BINDER CUTTER Miscellaneous - Conversion, Historical Provider Ser - 04/02/2015 12:45 PM HAND BINDER CUTTER Coding Summary-Paper Based CODING DATE: 04/13/2015 FINAL [facility] STATUS: * Discharged to Home or Self Care PAYOR: Medicare ADMIT DX: R07.9 Chest pain, unspecified REASON FOR VISIT DX: R07.9 Chest pain, unspecified FINAL DX: PRINCIPAL: I20.9 Angina pectoris, unspecified SECONDARY: Z87.891 Personal history of nicotine dependence PROCEDURES DOCTOR NAME DATE NOTE: The code number assigned matches the documented diagnosis and / or procedure in the patient's chart. However, the narrative phrase printed from the coding software may appear abbreviated, or result in slightly different terminology. Coded By: SAMANTHA BEAUCHAMP Date Saved: 04/13/2015 11:22 pm Source: [employer] Document Id: [id number] Miscellaneous - Toma Floyd RSwapnilN. - 04/02/2015 11:01 AM CST Facility Charge Ticket 2.0 11.0 DX Facility Charge Ticket 2.0 11.0 DX Entered On: 04/02/2015 13:29 HAND BINDER CUTTER Performed On: 04/02/2015 11:01 HAND BINDER CUTTER by TOMA FLOYD RN Facility Charge Ticket 2.0 11.0 DX ED Other Charges : Standard ED Encounter TVL Level Translated RTF : Chest pain, Chest pain TVL:5 TVL Level for Facility Charge Ticket : Level 5 Arrival Mode Calc : 129 Mode of Arrival ED : Private vehicle [facility] Mode of Arrival Interpreted : Standard [facility] Process Management : None Order Management RTF : Laboratory Basic Metabolic Panel,04/02/15 11:16,NATE GUZMAN MD Completed CBC (includes Auto Differential),04/02/15 11:16,NATE GUZMAN MD Completed Troponin T,04/02/15 11:16,NATE GUZMAN MD Completed Notification Only,04/02/15 11:16,NATE GUZMAN MD Completed Automated Diff-5 Part,04/02/15 11:21,NATE GUZMAN MD Completed Xray XR Chest 1 view portable,04/02/15 11:50,NATE GUZMAN MD Completed [facility] Order Management : Lab tests, Xray - plain films 30 Minutes Critical Care : No Nursing Notes RTF : Nursing Notes ED Primary Assessment,04/02/15 11:09,MIGUEL BRICE STUNTMAN Nurse Reassess,04/02/15 12:31,SHAHIDA SORTO RN [facility] Nursing Assessment : Triage and 1-2 nursing assessments [facility] Disposition : Discharge Disposition RTF : discharge [facility] Total Points with Diagnosis Control : 13 [facility] Visit Level : 35015 Level 5 Treatments Prior to Arrival : Aspirin TOMA FLOYD RN - 04/02/2015 13:29 HAND BINDER CUTTER Source: [facility] Document Id: [id number] HAND BINDER CUTTER!19 BINDER CUTTER documented in this encounter Plan of Treatment Not on filedocumented as of this encounter Procedures Procedure Name Priority Date/Time Associated Diagnosis Comme nts DX CHEST 1 VIEW Routine 04/02/2015 12:06 PM Resul ts for this HAND BINDER CUTTER procedure are i n the results section. AUTOMATED Routine 04/02/2015 11:15 AM Results for this DIFFERENTIAL, B HAND BINDER CUTTER procedure ar e in the results section. CBC WITH Routine 04/02/2015 11:15 AM Results for this DIFFERENTIAL, B HAND BINDER CUTTER procedure ar e in the results section. TROPONIN T, 5TH Routine 04/02/2015 11:15 AM Resul ts for this GEN, P HAND BINDER CUTTER procedure are i n the results section. BASIC METABOLIC Routine 04/02/2015 11:15 AM Resul ts for this PANEL, S/P HAND BINDER CUTTER procedure are i n the results section. documented in this encounter Results DX Chest 1 View (04/02/2015 12:06 PM HAND BINDER CUTTER) Anatomical Region Laterality Modality Chest N/A Radiographic Imaging Specimen (Source) Anatomical Collection Method Collection Time Re ceived Time Location / / Volume Laterality 04/02/2015 12:06 PM HAND BINDER CUTTER Impressions 04/02/2015 12:15 PM HAND BINDER CUTTER No acute portable x-ray findings. Narrative 04/02/2015 12:15 PM HAND BINDER CUTTER EXAM: XR Chest 1 view portable INDICATION: chest pain COMPARISON: None. FINDINGS: ??Limited portable AP sitting chest x-ray performed at 11:56 hours. ??Lung de los santos appear clear (allow ing for no lateral view). Heart and mediastinal structures are nor mal other than chronic thoracic aortic tortuosity and atheroscl erotic calcifications. ??Bony thorax and soft tissues appear to be cur rently intact. ??No vascular congestion. Procedure Note Jose Arredondo M.D. / Provider, Alberto tay M.D. - 09/17/2016 EXAM: XR Chest 1 view portable INDICATION: chest pain COMPARISON: None. FINDINGS: Limited portable AP sitting ch est x-ray performed at 11:56 hours. Lung de los santos appear clear (allowin g for no lateral view). Heart and mediastinal structures are nor mal other than chronic thoracic aortic tortuosity and atheroscl erotic calcifications. Bony thorax and soft tissues appear to be cur rently intact. No vascular congestion. IMPRESSION: No acute portable x-ray find ings. Tracie Campbell R.T.(R)(CT), R.T.(R) IMG DIAGNOSTIC JAUN GING PROCEDURES Automated Differential (04/02/2015 11:15 AM HAND BINDER CUTTER) P athologist Signature Absolute 5.34 1.70 - POWERCHART Neutrophils 7.00 109L Lymphocytes 1.49 0.90 - POWERCHART 2.90 X109L Monocytes 0.78 0.30 - POWERCHART 0.90 X109L Eosinophils 0.18 0.05 - POWERCHART 0.50 X109L Absolute 0.03 0.00 - POWERCHART Basophil 0.30 X109L Specimen Anatomical Collection Method Collection Time Receive d Time (Source) Location / / Volume Laterality Blood 04/02/2015 11:15 04/02/2015 AM HAND BINDER CUTTER 11:15 AM HAND BINDER CUTTER Nate Guzman M.D. LAB BLOOD ADD-ON Performing Organization Address City/State/ZIP Code Phon e Number POWERCHART CBC with Differential (04/02/2015 11:15 AM HAND BINDER CUTTER) P athologist Signature Leukocytes 7.8 3.5 - 10.5 POWERCHART X109L Erythrocytes 5.13 4.32 - POWERCHART 5.72 Q2849E Hemoglobin 15.2 13.5 - POWERCHART 17.5 GDL Hematocrit 45.8 38.8 - POWERCHART 50.0 MCV 89.3 81.2 - POWERCHART 95.1 FL HX RDW 14.2 11.8 - POWERCHART 15.6 Platelet Count 249 150 - 450 POWERCHART X109L HXDifferential? Auto POWERCHART Specimen (Source) Anatomical Collection Method Collection Time Re ceived Time Location / / Volume Laterality Blood 04/02/2015 11:15 AM HAND BINDER CUTTER Nate Guzman M.D. LAB BLOOD ADD-ON Performing Organization Address City/State/ZIP Code Phon e Number POWERCHART (ABNORMAL) BMP (Basic Metabolic Panel) (04/02/2015 11:15 AM HAND BINDER CUTTER) Patholo gist Method Time Signature Sodium, S 137 135 - 145 POWERCHART MMOLL Potassium, S 4.2 3.5 - 5.1 POWERCHART MMOLL Chloride, S 99 98 - 107 POWERCHART MMOLL CO2 Total 26 22 - 29 POWERCHART MMOLL BUN (Blood Urea 16 6 - 24 MGDL POWERCHART Nitrogen), S Creatinine 0.7 (L) 0.8 - 1.3 POWERCHART MGDL Calcium, Total, 9.6 8.8 - 10.3 POWERCHART S MGDL Anion Gap 12 7 - 15 MMOLL POWERCHART HXeGFR (MDRD) >60.0 >=60.0 POWERCHART MLMINSA eGFR >60.0 >=60.0 POWERCHART Black/ MLMINSA Solomon Islander Glucose 169 (H) 70 - 140 POWERCHART MGDL Specimen (Source) Anatomical Collection Method Collection Time Re ceived Time Location / / Volume Laterality Blood 04/02/2015 11:15 AM HAND BINDER CUTTER Nate Guzman M.D. LAB BLOOD ADD-ON Performing Organization Address City/State/ZIP Code Phon e Number POWERCHART Troponin T (04/02/2015 11:15 AM HAND BINDER CUTTER) P athologist Signature Troponin T, S <0.010 <=0.010 POWERCHART NGML Comment: Values > or = 0.01 ng/mL have b een shown to have prognostic value. Specimen (Source) Anatomical Collection Method Collection Time Re ceived Time Location / / Volume Laterality Blood 04/02/2015 11:15 AM HAND BINDER CUTTER Nate Guzman M.D. LAB BLOOD ADD-ON Performing Organization Address City/State/ZIP Code Phon e Number POWERCHART documented in this encounter Visit Diagnoses Not on filedocumented in this encounter
--- OUTSIDE RECORDS SUMMARY | 2022-03-19 02:53 | XMS_ITS | Encounter Summary ---
:1940 Author Organization [facility] Address [address] [place] [address] Care Team Providers Name Role Phone Unavailable Primary Care Provider Unavailable Reason for Referral Specialty Diagnoses / Procedures Referred By Contact Refer red To Contact [address] [phone] Referral ID Status Reason Start Date Expiration Date Visits Requ ested Visits Authorized TAT CONSERVATION PLANNER Encounter Details Date Type Department Care Team Description 06/11/2020 Immunization Department of [facility] Freda Kaur Enc ounter For COVID-19 Medicine, [facility] Eloisa Vaccine Immunization [facility] in [address] (Primary Dx) [place] [id number] [place] [phone] Social History Tobacco Use Types Packs/Day Years Used Date Smoking Tobacco: Former Sex Assigned at Date Recorded Not on file documented as of this encounter Plan of Treatment Scheduled Referrals Name Type Priority Associated Diagnoses Order S chedule Covid immunization Outpatient Referral Routine Encounter For E xpected: office visit Covid-19 Vaccine 07/02/2020, Subsequent; 21 days Immunization Expires: 06/11/2023 documented as of this encounter Visit Diagnoses Diagnosis Encounter For COVID-19 Vaccine Immunizat ion - Primary documented in this encounter
--- OUTSIDE RECORDS SUMMARY | 2022-03-19 02:53 | XMS_ITS | Encounter Summary ---
:1940 Author Organization [facility] Address [address] [place] [address] Care Team Providers Name Role Phone Unavailable Primary Care Provider Unavailable Encounter Details Date Type Department Care Team Description 03/17/2021 Immunization Department of [facility] Fabian Sheikh Enc ounter For COVID-19 Medicine in [facility] Vaccine Immunization [place], [place] [address] [place] [phone] Social History Tobacco Use Types Packs/Day Years Used Date Smoking Tobacco: Former Sex Assigned at Date Recorded Not on file documented as of this encounter Plan of Treatment Not on filedocumented as of this encounter Visit Diagnoses Diagnosis Encounter For COVID-19 Vaccine Immunizat ion documented in this encounter
--- OUTSIDE RECORDS SUMMARY | 2022-03-19 02:53 | XMS_ITS | Clinical Summary ---
:[address] [facility] Address [address] [place] [address] Care Team Providers Name Role Phone Unavailable Primary Care Provider Unavailable Source Comments Patient records contain information from all sites at [facility]. For routine questions regarding patient records, call [phone] during business hours, M-F 8:00 AM - 5:00 PM Central Time. Record requests for emergency care only can be directed to [phone] at any time.[facility] Immunizations Name Administration Dates Next Due SARS-COV-2 (COVID-19) - PFIZER (12 years 03/17/2021, 021, 06/11/2020 or older) Social History Tobacco Use Types Packs/Day Years Used Date Smoking Tobacco: Former Sex Assigned at Date Recorded Not on file Last Filed Vital Signs Vital Sign Reading Time Taken Comments Blood Pressure 147/83 04/02/2015 12:30 PM BIOLOGY ADJUNCT INSTRUCTOR Pulse 58 04/02/2015 12:30 PM BIOLOGY ADJUNCT INSTRUCTOR Temperature - - Respiratory Rate 20 04/02/2015 12:30 PM BIOLOGY ADJUNCT INSTRUCTOR Oxygen Saturation - - Inhaled Oxygen Concentration - - Weight - - Height - - Body Mass Index - - Plan of Treatment Health Maintenance Due Date Last Done Comments Zoster Vaccines (1 of 2) 1988 Depression Screening (Annual 05/10/2021 PHQ-2) Fall Risk Screen (Annual) 05/10/2021 COVID-19 Vaccine (5 - Booster for 11/25/2021 09/30/2021, , Pfizer series) 07/02/2020, Additional history exists Influenza Vaccine (#1) 2022 04/05/2021, 03/08/2020, 03/01/2019, Additional history exists DTaP,Tdap,and Td Vaccines (3 - Td 01/15/2031 01/15/2021, , or Tdap) 12/21/2001, Additional history exists Pneumococcal vaccine (65+ years) Completed 04/27/2016, Insurance Payer Benefit Plan Subscriber ID Effective Phone Address Typ e / Group Dates MEDICARE MEDICARE A [id number] 2003-Pre [address] [place] [address] BLUE CROSS BCBS BISHOP PAIUTE [id number] 2016-Pres [phone] PO THEA X Cost Share BLUE SHIELD BLUE COST ent [phone] [place] [address] [phone] [facility] (Home) [address] [place] Munoz [address]
--- OUTSIDE RECORDS SUMMARY | 2022-03-19 02:54 | XMS_ITS | Encounter Summary ---
:1940 Author Organization [facility] Address [address] [place] [address] Care Team Providers Name Role Phone Unavailable Primary Care Provider Unavailable Reason for Visit Reason Comments Other Encounter Details Date Type Department Care Team Description 01/12/2008 Telephone [facility], Message Other [address] [place], [place] [id number] Social History Tobacco Use Types Packs/Day Years Used Date Smoking Tobacco: Never Assessed Sex Assigned at Date Recorded Not on file documented as of this encounter [facility], Message - 01/12/2008 2:17 PM CDT Phone Note filed by [employer] at 08/28/10457 Author: [employer] Service: (none) Author Type: (none) Filed: 08/28/10457 Note Time: 01/12/081416 Status: Signed Logger: [employer] Prior Authorization or Change Medications? Pharmacy Seq #:[phone] Pharmacy Name & Phone #: [facility] Street/City: [place] Comment: NEED A PA Clinician Name:Mony OSMAN Drug Name/Strength:ANDROGEL 1% GEL PCKT Sig: Formulary Alternative Meds from Pharmacy: Insurance Carrier: [employer] [phone] Call Back Phone or Cell Phone: Is it OK to Leave a Confidential Message on this Voicemail? Created on 12Jan2008 2:17pm by SKYLA THOMSON On 13Jan2008 10:51am MARISA STEINBERG wrote: Pt calling regarding this stating that it should be for a month supply which is 30 packets. Pt also states that he has [employer] for insurance and they do not cover Marti Nance anymore, which is why he has not been able to make appt with Tanisha. Pt states he is currently looking for new doctor in [place]. [phone] home vm ok. On 13Jan2008 10:55am SANTOS RIVERA wrote: Pharmacy is calling back and would like to know the quantity of the androgel. Pt thought it was the quantity of 30. The pharmacy has 3 packets that was faxed Jan 11. The pharmacy number is [phone] Kei. On 13Jan2008 4:11pm VAUGHN FISHER wrote: PA faxed and pending. On 13Jan2008 4:11pm VAUGHN FISHER wrote: PA faxed and pending. On 16Jan2008 4:43pm SANDRA OSMAN wrote: GOYO SEE NOTE I JUST SENT TO YOU Acknowledged by SANDRA OSMAN on 4:43pm On 16Jan2008 5:00pm GOYO OSMAN wrote: Noted. 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
--- OUTSIDE RECORDS SUMMARY | 2022-03-19 02:54 | XMS_ITS | Encounter Summary ---
:1940 Author Organization [facility] Address [address] [place] [address] Care Team Providers Name Role Phone Unavailable Primary Care Provider Unavailable Reason for Visit Reason Comments Other Encounter Details Date Type Department Care Team Description 01/16/2008 Telephone [facility], Message Other [address] [place] [address] Social History Tobacco Use Types Packs/Day Years Used Date Smoking Tobacco: Never Assessed Sex Assigned at Date Recorded Not on file documented as of this encounter [facility], Message - 01/16/2008 11:45 AM CDT Phone Note filed by [employer] at 08/28/10510 Author: [employer] Service: (none) Author Type: (none) Filed: 08/28/10510 Note Time: 01/16/08 1145 Status: Signed Quarantine Inspector: [employer] MESSAGE TO CARE TEAM NAME OF CALLER: [facility] [place] NAME OF CLINICIAN: Dr. Sandra Osman MESSAGE: Following up on a fax sent last week PHARMACY PHONE #: [phone] Androgel 1% gel packets. Need to clarify quantity and will also need prior authorization. A fax was sent over last 01/13/08 and he is just following up on this. *ECODE~PNMSG Created on 16Jan2008 11:45am by JERED DIAS On 16Jan2008 12:32pm SANDRA OSMAN wrote: RECOMMEND FOLLOW UP VISIT. LAST SEEN 10/2006 Acknowledged by SANDRA OSMAN on 12:32pm On 16Jan2008 4:26pm GOYO OSMAN wrote: Pt called and advised above message, pt states that his insurance changed to [employer], and they do not cover if he go to [facility]. He will go to different clinic on for physical exam, he wants Rx only, please advise. Acknowledged by GOYO OSMAN on 4:26pm On 16Jan2008 4:43pm SANDRA OSMAN wrote: GOYO CALL HIM. WE WILL NOT BE ABLE TO REFILL THIS MEDICATION FOR HIM HE IS NO LONGER FOLLOW WITH US. Acknowledged by SANDRA OSMAN on 4:43pm On 16Jan2008 4:59pm GOYO OSMAN wrote: Pt called and advised above message. Acknowledged by GOYO OSMAN on 4:59pm METRIST documented in this encounter Plan of Treatment Not on filedocumented as of this encounter Visit Diagnoses Not on filedocumented in this encounter
--- OUTSIDE RECORDS SUMMARY | 2022-03-19 02:54 | XMS_ITS | Encounter Summary ---
:1940 Author Organization [facility] Address [address] [place] [address] Care Team Providers Name Role Phone Unavailable Primary Care Provider Unavailable Encounter Details Date Type Department Care Team Description 04/20/2006 PN Conversion Only PRESYBETERIAN CONVERSION Rashid Luu MD [address] [place] [address] (Wo rk) Social History Tobacco Use Types Packs/Day Years Used Date Smoking Tobacco: Never Assessed Sex Assigned at Date Recorded Not on file documented as of this encounter Plan of Treatment Not on filedocumented as of this encounter Procedures Procedure Name Priority Date/Time Associated Comments Diagnosis TESTOSTERONE TOTAL Routine 04/20/2006 10:38 Resul ts for this ADULT MALES AM APN procedure are i n the results section. GLUCOSE Routine 04/20/2006 10:38 Results for this AM APN procedure are i n the results section. COMPLETE BLOOD Routine 04/20/2006 10:38 Results f or this COUNT-W/DIFF AM APN procedure are i n the results section. PROSTATIC SPECIFIC Routine 04/20/2006 10:38 Resul ts for this ANTIGEN(SCREEN) AM APN procedure ar e in the results section. HGB A1C Routine 04/20/2006 10:38 Results for this AM APN procedure are i n the results section. documented in this encounter Results (ABNORMAL) Complete Blood Count-W/Diff (04/20/2006 10:38 AM APN) [facility] Method Time Signature White Blood Cell 7.4 3.8 - 11.0 HP CONVERSIO N Count K/cmm Red Blood Cell 5.96 (H) 4.20 - HP CONVERSION Count 5.90 m/cmm Hemoglobin 17.7 (H) 13.4 - HP CONVERSION 17.5 gm/dL Hematocrit 52.3 (H) 39.0 - HP CONVERSION 51.0 % Mean Corpuscular 87.8 80.0 - HP CONVERSION Volume 100.0 fl Mean Corpuscular 29.7 27.0 - HP CONVERSION Hemoglobin 34.0 pg Mean Corpuscular 33.8 32.0 - HP CONVERSION Hemoglobin Conc 36.5 gm/dL [place] RDW 12.9 11.0 - HP CONVERSION 15.0 % Platelet Count 260 140 - 450 HP CONVERSION k/cmm Differential Auto-Dif No normal HP CONVERSION Verify range Neutrophils 5.2 2.0 - 7.5 HP CONVERSION Absolute Count K/cmm Neutrophil 70.1 50.0 - HP CONVERSION 75.0 % Lymphocyte % 21.2 20.0 - HP CONVERSION 40.0 % Monocyte 6.7 5.0 - 14.0 HP CONVERSION % Eosinophil 1.6 0.0 - 6.0 HP CONVERSION % Basophil % 0.4 0.0 - 2.0 HP CONVERSION % Specimen (Source) Anatomical Collection Method Collection Time Re ceived Time Location / / Volume Laterality 04/20/2006 10:38 AM APN C Siena Luu MD LAB_1 Performing Organization Address City/[facility]/ZIP Code Phon e Number HP CONVERSION (ABNORMAL) Glucose (04/20/2006 10:38 AM APN) athologist Signature Lab Glucose 109 (H) 60 - 100 HP CONVERSION mg/dL Specimen (Source) Anatomical Collection Method Collection Time Re ceived Time Location / / Volume Laterality 04/20/2006 10:38 AM APN C Siena Luu MD LAB_1 Performing Organization Address City/State/ZIP Code Phon e Number HP CONVERSION Prostatic Specific Antigen (Screen) (04/20/2006 10:38 AM APN) athologist Signature Prostate 1.1 0.0 - 4.0 HP CONVERSION Specific ng/mL Antigen Specimen (Source) Anatomical Collection Method Collection Time Re ceived Time Location / / Volume Laterality 04/20/2006 10:38 AM APN C Siena Luu MD LAB_1 Performing Organization Address City/State/ZIP Code Phon e Number HP CONVERSION (ABNORMAL) Hgb A1c (04/20/2006 10:38 AM APN) P athologist Signature HGB A1C 6.2 (H) <6.0 % HP CONVERSION Specimen (Source) Anatomical Collection Method Collection Time Re ceived Time Location / / Volume Laterality 04/20/2006 10:38 AM APN C Siena Luu MD LAB_1 Performing Organization Address City/[facility] Code Phon e Number HP CONVERSION Testosterone, Total Adult Males (04/20/2006 10:38 AM APN) Analysis Performed At Patho logist Time Signature Testosterone 2 118 - 823 HP CONVERSION Level ng/dL Specimen (Source) Anatomical Collection Method Collection Time Re ceived Time Location / / Volume Laterality 04/20/2006 10:38 AM APN C Siena Luu MD LAB_1 Performing Organization Address City/State/ZIP Code Phon e Number HP CONVERSION documented in this encounter Visit Diagnoses Not on filedocumented in this encounter
--- OUTSIDE RECORDS SUMMARY | 2022-03-19 02:54 | XMS_ITS | Encounter Summary ---
:1940 Author Organization [facility] Address [address] [place] [address] Care Team Providers Name Role Phone Unavailable Primary Care Provider Unavailable Encounter Details Date Type Department Care Team Description 04/21/2006 Procedure Visit [facility] [address], OD Ophthalmology OFF [address] [place] [address] [facility], [address] [phone] Social History Tobacco Use Types Packs/Day Years Used Date Smoking Tobacco: Never Assessed Sex Assigned at Date Recorded Not on file documented as of this encounter Plan of Treatment Not on filedocumented as of this encounter Visit Diagnoses Not on filedocumented in this encounter
--- OUTSIDE RECORDS SUMMARY | 2022-03-19 02:54 | XMS_ITS | Encounter Summary ---
:1940 Author Organization [facility] Address [address] [place] [address] Care Team Providers Name Role Phone Unavailable Primary Care Provider Unavailable Reason for Visit Reason Comments Other Encounter Details Date Type Department Care Team Description 10/06/2006 Telephone [facility], Message Other [address] [place] [address] Social History Tobacco Use Types Packs/Day Years Used Date Smoking Tobacco: Never Assessed Sex Assigned at Date Recorded Not on file documented as of this encounter Progress Notes Christin Severino - 10/06/2006 3:23 PM CDT Phone Note filed by Christin Severino at 08/26/102132 Author: Christin Severino Service: (none) Author Type: (none) Filed: 08/26/102132 Note Time: 10/06/061522 Status: Signed 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 Comment:- Pharmacy Seq #:-[phone] Pharmacy Name:-[facility] [place] or City:-[place], [place] Clinician Name:-JACQUI Drug Name/Strength:-NORVASC TAB 2.5 MG Sig: Dose/Route/Freq:-TAKE 1 TABLET EVERY DAY Quantity & Last Fill:-90 N/A Created on 06Oct2006 3:23pm by CHRISTIN SEVERINO On 07Oct2006 8:29am SANDRA OSMAN wrote: RX FAXED. YAZMIN CALL HIM. HE IS DUE FOR FOLLOW UP VISIT. I WILL NOT FURTHER REFILL WITHOUT SEEING HIM Acknowledged by OSMANSANDRA HUI on 8:29am On 07Oct2006 9:13am YAZMIN TRAYLOR wrote: patient called and advised of above. Acknowledged by YAZMIN TRAYLOR on 9:13am Acknowledged by ADOLFO CASTELLANOS on 2:06pm [employer] documented in this encounter Plan of Treatment Not on filedocumented as of this encounter Visit Diagnoses Not on filedocumented in this encounter
--- OUTSIDE RECORDS SUMMARY | 2022-03-19 02:54 | XMS_ITS | Encounter Summary ---
:1940 Author Organization [facility] Address [address] [place] [address] Care Team Providers Name Role Phone Unavailable Primary Care Provider Unavailable Encounter Details Date Type Department Care Team Description 10/07/2005 Echocardiographer Only [facility] [address] Rashid Pichardo MD Endocrinology [address] [facility] [address] [place] [address] [id number] [phone] Social History Tobacco Use Types Packs/Day Years Used Date Smoking Tobacco: Never Assessed Sex Assigned at Date Recorded Not on file documented as of this encounter Progress Notes Rashid Pichardo MD - 10/07/2005 12:01 AM CDT Progress Notes signed by Rashid Pichardo MD at 10/07/05 2776 Author: Rashid Pichardo MD Service: (none) Author Type: Physician Filed: 08/29/10 1210 Note Time: 10/07/05 0001 Status: Signed Parcel Post Delivery: Rashid Pichardo MD (Physician) 10/07/05: Labs from 10/02/05 reviewed. T los before shot. Switch to androgel. Get tetosterone level drawn before appt. RTC 4-6 weeks. Lab letter sent. JALEN Pichardo MD PhD documented in this encounter Plan of Treatment Not on filedocumented as of this encounter Visit Diagnoses Not on filedocumented in this encounter
--- OUTSIDE RECORDS SUMMARY | 2022-03-19 02:54 | XMS_ITS | Clinical Summary ---
:1940 External Reference #:NONE Author Organization [facility] [place] [address] Care Team Providers Name Role Phone Maxwell Quinones MD Primary Care Provider Allergies No known active allergies Medications Medication Sig Dispensed Refills Start Date End Date Status multivitamin (MVI) Take 1 tablet by 0 Active tablet mouth once daily. vitamin B complex (B Take 1 tablet by 0 Active COMPLEX 1) tablet mouth once daily. nitroglycerin Place 0.4 mg under 0 Active (NITROSTAT) 0.4 mg the tongue every 5 sublingual tablet minutes if needed for Chest Pain. cholecalciferol Take 2,000 Units by 0 Active (VITAMIN D-3) 2,000 mouth once daily. unit capsule latanoprost (XALATAN) Place 1 Drop into 0 Active 0.005 % ophthalmic both eyes at solution bedtime. dorzolamide (TRUSOPT) Place 1 Drop into 0 Active 2 % ophthalmic left eye 2 times solution daily. metoprolol succinate Take 25 mg by mouth 0 Active (TOPROL XL) 25 mg once daily. Sustained-Release tablet aspirin (ECOTRIN) 81 Take 1 tablet by 0 04/14/2015 Active mg enteric coated mouth once daily tablet with a meal. Take for life. acetaminophen Take 1-2 tablets by 0 04/14/2015 Active (TYLENOL) 325 mg mouth every 4 hours tablet if needed for Pain. Max acetaminophen dose: 4000mg in 24 hrs. atorvastatin Take 1 tablet by 30 tablet 2 04/14/2015 Active (LIPITOR) 20 mg mouth at bedtime. tabletIndications: NSTEMI (non-ST elevated myocardial infarction) (HC), S/P CABG x 3 lisinopril (PRINIVIL; Take 1 tablet by 60 tablet 2 04/14/2015 Active ZESTRIL) 5 mg mouth 2 times tabletIndications: daily. HTN (hypertension), Ischemic cardiomyopathy sennosides-docusate, Take 1-4 tablets by 60 tablet 2 5 Active 8.6-50 mg, (SENOKOT mouth 2 times daily S) 8.6-50 mg if needed for tabletIndications: Constipation. S/P CABG x 3 HYDROcodone-acetamino Take 1-2 tablets by 40 tablet 0 04/14/20 15 Active phen, 5-325 mg, mouth every 4 hours (NORCO) per if needed for Pain. tabletIndications: Max acetaminophen S/P CABG x 3 dose: 4000 mg in 24 hrs. ondansetron (ZOFRAN Place 1 tablet on 10 tablet 0 04/14/2015 Active ODT) 4 mg the tongue every 8 disintegrating hours if needed for tabletIndications: Nausea/Vomiting. 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 Patient has identified Health Care Agent (s): No Add Health Care Agents: No - primary con cerned persons include: Anisa/daughter/[phone]-cell Who is the backup family spokesperson: Name/relationship/phone (see row detail) Thea/daughter/[phone]-cell/ Breanne/daughter [phone] Patient has Advance Care Plan Documents (Health Care Directive, POLST): No, Health Care Packet given to patient. Patient has identified Specific Treatmen t Preferences: No Specific limits to treatment preferences NOT identified: ASSUME FULL TREATMENT. 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 04/06/2015 Overview: 3 vessel disease on coronary angiogram f rom 03/2015 NSTEMI (non-ST elevated myocardial infarction) 015 HTN (hypertension) 04/05/2015 Hyperlipidemia 04/05/2015 Type 2 diabetes mellitus without complication 04/05/20 15 Testicular hypofunction 08/03/2005 Overview: Overview: LW Onset: Benign neoplasm of colon 08/03/2005 Overview: Overview: LW Modifier: NEED REPEAT COLONOSCOPY 200 7 LW Onset: 06/2003 Family History Medical History Relation Name Comments Heart Disease Brother Heart Disease Sister Relation Name Status Comments Brother Sister Social History Tobacco Use Types Packs/Day Years Used Date Former Smoker 1 Quit: 05/10/18 99 Alcohol Use Standard Drinks/Week Comments Yes 0 (1 standard drink = 0.6 oz pure alcoho l) moderate alcohol use Alcohol Habits Answer Date Recorded How often do you have a drink containing alcohol? Not asked How many drinks containing alcohol do you have on Not asked a typical day when you are drinking? How often do you have six or more drinks on one Not asked occasion? Comment: moderate alcohol use 04/05/2015 Sex Assigned at Date Recorded Not on file Obstetrics History Last Filed Vital Signs Vital Sign Reading Time Taken Comments Blood Pressure 116/76 07/16/2015 11:37 AM HUMAN RESOURCE CONSULTANT Pulse 81 07/16/2015 11:37 AM HUMAN RESOURCE CONSULTANT Temperature 36.2 ??C (97.1 ??F) 05/01/2015 11:00 AM HUMAN RESOURCE CONSULTANT Respiratory Rate 18 05/01/2015 11:00 AM HUMAN RESOURCE CONSULTANT Oxygen Saturation 94% 07/16/2015 11:37 AM HUMAN RESOURCE CONSULTANT Inhaled Oxygen Concentration - - Weight 96.3 kg (212 lb 3.2 oz) 07/16/2015 11:37 AM HUMAN RESOURCE CONSULTANT Height 179.1 cm (5' 10.5) 04/16/2015 9:00 AM HUMAN RESOURCE CONSULTANT Body Mass Index 30.02 04/16/2015 9:00 AM HUMAN RESOURCE CONSULTANT Plan of Treatment Health Maintenance Due Date Last Done Comments COVID-19 vaccine series (#1) 1940 Tdap 1949 Depression screening for age 12+ 1950 BMI (ht and wt on same day) for age 18+ 1956 Tetanus booster 1958 Zoster (shingles) series for age 50+ (1 of 2) 1988 Pneumococcal series for age 65+ (1 - PCV) 2003 Influenza for age 65+ 01/08/2022 Results Not on filefrom Last 3 Months Insurance Payer Benefit Plan / Subscriber ID Effective Phone Address T ype Group Dates COMMERCIAL COMMERCIAL NONE Effective for [phone] ATTN LIABIL ITY all dates [id number] [place] [address] MEDICARE PART B MEDICARE PART B [id number] 2003-Pre A TTN: CLAIMS - HB USE ONLY HB ONLY sent [address] [place] [address] MEDICARE PART A MEDICARE PART A [id number] 2003-Pre A TTN: CLAIMS - HB USE ONLY HB ONLY sent [address] [place] [address] MEDICARE PPS HC MEDICARE PPS [id number] 2003-Pre [address] sent [address] [place] [address] MEDICARE - PB MEDICARE PB [id number] 2003-Pre ATTN: C LAIMS USE ONLY ONLY sent [address] [place] [address] BLUE CROSS BLUE CROSS [id number] 2014-Pres [address] [address] [place], [place] ONLY [id number] Mo Daley Personal/Family Self 1940 [address] (Home) [place] [address] Mo Daley Third Alliance Party Self 1940 [id number] (Home) [place] [address] Advance Directives Documents on File Type Date Recorded 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
--- OUTSIDE RECORDS SUMMARY | 2022-03-19 02:54 | XMS_ITS | Encounter Summary ---
:1940 Author Organization [facility] Address [address] [place] [address] Care Team Providers Name Role Phone Unavailable Primary Care Provider Unavailable Reason for Visit Reason Comments Other Encounter Details Date Type Department Care Team Description 04/22/2006 Telephone [facility], Message Other [address] [place], [place] [id number] Social History Tobacco Use Types Packs/Day Years Used Date Smoking Tobacco: Never Assessed Sex Assigned at Date Recorded Not on file documented as of this encounter Progress Notes Lissette Lentz - 04/22/2006 9:11 AM CST Phone Note filed by Lissette Lentz RN at 08/26/101212 Author: Lissette Lentz RN Service: (none) Author Type: Registered Nurse Filed: 08/26/101212 Note Time: 04/22/06 0911 Status: Signed Test Engine Operator: Lissette Lentz RN (Registered Nurse) Grant has BC/BS insurance. Viagra isn't covered. He call his Ins. and they told him to call for something else, but didn't tell him what is covered. Uses our pharmacy. Call him at:[phone]...message ok. Created on 22Apr2006 9:11am by LISSETTE LENTZ R On 22Apr2006 9:57am SANDRA OSMAN wrote: TRY CIALIS. SEE RX Acknowledged by OSMANSANDRA ARREOLA on 9:57am On 22Apr2006 10:38am YAZMIN TRAYLOR wrote: rx faxed to our pharmacy. patient called message left advising of above. Acknowledged by YAZMIN TRAYLOR on 10:38am ERY OR MUSEUM TECHNICIAN documented in this encounter Plan of Treatment Not on filedocumented as of this encounter Visit Diagnoses Not on filedocumented in this encounter
--- OUTSIDE RECORDS SUMMARY | 2022-03-19 02:54 | XMS_ITS | Encounter Summary ---
:1940 Author Organization [facility] Address [address] [place] [address] Care Team Providers Name Role Phone Unavailable Primary Care Provider Unavailable Encounter Details Date Type Department Care Team Description 03/01/2006 Office Visit [facility] [place] [address] [place] [address] [address] [facility] [phone] [facility] [address] Social History Tobacco Use Types Packs/Day Years Used Date Smoking Tobacco: Never Assessed Sex Assigned at Date Recorded Not on file documented as of this encounter Plan of Treatment Not on filedocumented as of this encounter Visit Diagnoses Not on filedocumented in this encounter
--- OUTSIDE RECORDS SUMMARY | 2022-03-19 02:54 | XMS_ITS | Encounter Summary ---
:1940 Author Organization [facility] Address [address] [place] [address] Care Team Providers Name Role Phone Unavailable Primary Care Provider Unavailable Encounter Details Date Type Department Care Team Description 02/15/2006 Nursing Visit [facility] [place] [address] [facility] [address] [place] [address] [place], [place] [phone] Social History Tobacco Use Types Packs/Day Years Used Date Smoking Tobacco: Never Assessed Sex Assigned at Date Recorded Not on file documented as of this encounter Plan of Treatment Not on filedocumented as of this encounter Visit Diagnoses Not on filedocumented in this encounter
--- OUTSIDE RECORDS SUMMARY | 2022-03-19 02:54 | XMS_ITS | Encounter Summary ---
:1940 Author Organization [facility] Address [address] [place] [address] Care Team Providers Name Role Phone Unavailable Primary Care Provider Unavailable Encounter Details Date Type Department Care Team Description 11/01/2006 PN Conversion Only [place] [address] [place], [place] [address] (Wo rk) Social History Tobacco Use Types Packs/Day Years Used Date Smoking Tobacco: Never Assessed Sex Assigned at Date Recorded Not on file documented as of this encounter Plan of Treatment Not on filedocumented as of this encounter Procedures Procedure Name Priority Date/Time Associated Comments Diagnosis ELECTROLYTES (NA, K, Routine 11/01/2006 11:19 Res ults for this CL, BICARB) AM CDT procedure are i n the results section. GLUCOSE Routine 11/01/2006 11:19 Results for this AM CDT procedure are i n the results section. THYROID STIMULATING Routine 11/01/2006 11:19 Resu lts for this HORMONE AM CDT procedure are i n the results section. URINALYSIS Routine 11/01/2006 11:19 Results for this ROUTINE(MICRO IF POS) AM CDT proced ure are in the results section. URINALYSIS Routine 11/01/2006 11:19 Results for this MICROSCOPIC AM CDT procedure are i n the results section. LIPID PANEL AND Routine 11/01/2006 11:19 Results for this DIRECT LDL(IF NEEDED) AM CDT proced ure are in the results section. CREATININE / GFR Routine 11/01/2006 11:19 Results for this AM CDT procedure are i n the results section. COMPLETE BLOOD Routine 11/01/2006 11:19 Results f or this COUNT-W/DIFF AM CDT procedure are i n the results section. ALT (SGPT) Routine 11/01/2006 11:19 Results for this AM CDT procedure are i n the results section. BUN Routine 11/01/2006 11:19 Results for this AM CDT procedure are i n the results section. documented in this encounter Results (ABNORMAL) Complete Blood Count-W/Diff (11/01/2006 11:19 AM CDT) [facility] Method Time Signature White Blood Cell 8.3 3.8 - 11.0 HP CONVERSIO N Count K/cmm Red Blood Cell 5.61 4.20 - HP CONVERSION Count 5.90 m/cmm Hemoglobin 16.6 13.4 - HP CONVERSION 17.5 gm/dL Hematocrit 50.2 39.0 - HP CONVERSION 51.0 % Mean Corpuscular 89.4 80.0 - HP CONVERSION Volume 100.0 fl Mean Corpuscular 29.7 27.0 - HP CONVERSION Hemoglobin 34.0 pg Mean Corpuscular 33.2 32.0 - HP CONVERSION Hemoglobin Conc 36.5 gm/dL [place] RDW 12.6 11.0 - HP CONVERSION 15.0 % Platelet Count 257 140 - 450 HP CONVERSION k/cmm Differential Auto-Dif No normal HP CONVERSION Verify range Neutrophils 6.0 2.0 - 7.5 HP CONVERSION Absolute Count K/cmm Neutrophil 72.2 50.0 - HP CONVERSION 75.0 % Lymphocyte % 17.6 (L) 20.0 - HP CONVERSION 40.0 % Monocyte 8.3 5.0 - 14.0 HP CONVERSION % Eosinophil 1.5 0.0 - 6.0 HP CONVERSION % Basophil % 0.4 0.0 - 2.0 HP CONVERSION % Specimen (Source) Anatomical Collection Method Collection Time Re ceived Time Location / / Volume Laterality 11/01/2006 11:19 AM CDT Yazan Garay MD LAB_1 Performing Organization Address City/State/ZIP Code Phon e Number HP CONVERSION ALT (SGPT) (11/01/2006 11:19 AM CDT) [facility] Method Time Signature Alanine 30 4 - 55 HP CONVERSION Aminotransferase U/L Specimen (Source) Anatomical Collection Method Collection Time Re ceived Time Location / / Volume Laterality 11/01/2006 11:19 AM CDT Yazan Branham Tanisha LEE LAB_1 Performing Organization Address City/State/ZIP Code Phon e Number HP CONVERSION BUN (11/01/2006 11:19 AM CDT) athologist Signature Blood Urea 17 5 - 26 HP CONVERSION Nitrogen mg/dL Specimen (Source) Anatomical Collection Method Collection Time Re ceived Time Location / / Volume Laterality 11/01/2006 11:19 AM CDT Yazan Branham Tanisha LEE LAB_1 Performing Organization Address City/[facility] Code Phon e Number HP CONVERSION Creatinine / GFR (11/01/2006 11:19 AM CDT) athologist Signature Creatinine 1.0 0.4 - 1.3 HP CONVERSION Serum mg/dL Specimen (Source) Anatomical Collection Method Collection Time Re ceived Time Location / / Volume Laterality 11/01/2006 11:19 AM CDT Yazan Branham Tanisha LEE LAB_1 Performing Organization Address City/[facility] Phon e Number HP CONVERSION (ABNORMAL) Glucose (11/01/2006 11:19 AM CDT) athologist Signature Length Of Fast 12.0 Hours HP CONVERSION Lab Glucose 119 (H) 60 - 100 HP CONVERSION mg/dL Specimen (Source) Anatomical Collection Method Collection Time Re ceived Time Location / / Volume Laterality 11/01/2006 11:19 AM CDT Yazan Branham Tanisha LEE LAB_1 Performing Organization Address [facility] Phon e Number HP CONVERSION (ABNORMAL) Electrolytes (NA, K, CL, Bicarb) (11/01/2006 11:19 AM CDT) athologist Signature Sodium 140 137 - 147 HP CONVERSION mEq/L Potassium 4.5 3.5 - 5.2 HP CONVERSION mEq/L Chloride 104 98 - 110 HP CONVERSION mEq/L Bicarbonate 34 (H) 23 - 33 HP CONVERSION mmol/L Specimen (Source) Anatomical Collection Method Collection Time Re ceived Time Location / / Volume Laterality 11/01/2006 11:19 AM CDT Yazan Branham Tanisha LEE LAB_1 Performing Organization Address City/[facility] Code Phon e Number HP CONVERSION (ABNORMAL) Lipid Panel and Direct LDL(If Needed) (11/01/2006 11:19 AM CDT) [facility] Method Time Signature Length Of Fast 12.0 Hours HP CONVERSION Cholesterol/HDL 5.0 No normal HP CONVERSION Ratio Screen range Cholesterol 209 (H) <200 mg/dL HP CONVERSION HDL Cholesterol 42 40 - 60 HP CONVERSION mg/dL Triglycerides 166 (H) 0 - 149 HP CONVERSION mg/dL LDL Calculated 134 (H) 0 - 130 HP CONVERSION mg/dL Comment: Specimen (Source) Anatomical Collection Method Collection Time Re ceived Time Location / / Volume Laterality 11/01/2006 11:19 AM CDT Yazan Branham Tanisha LEE LAB_1 Performing Organization Address City/State/ZIP Code Phon e Number HP CONVERSION Urinalysis Routine(Micro If Pos) (11/01/2006 11:19 AM CDT) [facility] [employer] Method Time Signature Turbidity Clear No normal HP CONVERSION range pH Urine 7.5 4.5 - 7.5 HP CONVERSION Protein Urine Negative Neg-Trac HP CONVERSION Glucose, Negative Neg-Trac HP CONVERSION Qualitative U Ketones Negative Negative HP CONVERSION U BILI Negative Negative HP CONVERSION Blood Urine Negative Negative HP CONVERSION Nitrite Urine Negative Negative HP CONVERSION Leukocyte Negative Negative HP CONVERSION Esterase Urine Urobilinogen Negative 0.2 - 1.0 HP CONVERSION Urine U Specific 1.015 1.005 - 25 HP CONVERSION [place] Specimen (Source) Anatomical Collection Method Collection Time Re ceived Time Location / / Volume Laterality 11/01/2006 11:19 AM CDT Yazan Branham Tanisha LEE LAB_1 Performing Organization Address City/State/ZIP Code Phon e Number HP CONVERSION Urinalysis Microscopic (11/01/2006 11:19 AM CDT) Analysis Performed At Patho logist Time Signature White Blood 0-2/HPF 0 - 3 HP CONVERSION Cells Urine Red Blood Cells 0-2/HPF 0 - 2 HP CONVERSION Urine Epithelial Few Few /HPF HP CONVERSION Cells Specimen (Source) Anatomical Collection Method Collection Time Re ceived Time Location / / Volume Laterality 11/01/2006 11:19 AM CDT Yazan Branham Tanisha LEE LAB_1 Performing Organization Address City/State/ZIP Code Phon e Number HP CONVERSION Thyroid Stimulating Hormone (11/01/2006 11:19 AM CDT) P athologist Signature Thyroid 1.72 0.20 - HP CONVERSION Stimulating 4.50 Hormone uIU/mL Specimen (Source) Anatomical Collection Method Collection Time Re ceived Time Location / / Volume Laterality 11/01/2006 11:19 AM CDT Yazan Branham Tanisha LEE LAB_1 Performing Organization Address City/State/ZIP Code Phon e Number HP CONVERSION documented in this encounter Visit Diagnoses Not on filedocumented in this encounter
--- OUTSIDE RECORDS SUMMARY | 2022-03-19 02:54 | XMS_ITS | Encounter Summary ---
:1940 Author Organization [facility] Address [address] [place] [address] Care Team Providers Name Role Phone Unavailable Primary Care Provider Unavailable Encounter Details Date Type Department Care Team Description 12/21/2006 Hospital Encounter [facility] 6500 Henrique Barrientos MD [address] [place] [address] Endoscopy Henrique Palacios MD [address] [place], [place] [id number] [address] [employer] [place] [place] [address] Social History Tobacco Use Types Packs/Day Years Used Date Smoking Tobacco: Never Assessed Sex Assigned at Date Recorded Not on file documented as of this encounter Medications at Time of Discharge Medication Sig Dispensed Refills Start Date End Date amLODIPine (AKA NORVASC) Take 1 tablet by 90 3 11/01 5 MG tablet mouth daily (every 24 hours). LW Addl Instr:Indicated for: High Blood Pressure ascorbic acid (AKA Indications: PN: 0 11/01/2006 VITAMIN C) 500 MG tablet aspirin 325 MG Take 1 tablet by 13 03/01/2006 tabletIndications: mouth every other INA HERRERA day. WedDec 30, 2011 9:46 AM patient stopped 5 days ago for procedure. blood glucose monitor LW Addl Instr:CHECK 1 0 11/01 system (ONE TOUCH ULTRA GLUCOSE 1-2 TIMES SYSTEM KIT) W/DEVICE WEEKLY PRIOR TO BREAKFAST blood glucose (ONE LW Addl Instr:CHECK 100 6 11/01 TOUCH ULTRA TEST) strip GLUCOSE 1-2 TIMES WEEKLY PRIOR TO BREAKFAST CALCIUM CARB-MAGNESIUM LW Addl Instr:TAKE 0 11/01 CARB OR WITH FOOD. Flaxseed Oil (LINSEED Take by mouth. 3 11/01/2006 OIL) hydrocortisone 2.5 % Apply 1 Application 0 2006 cream topically 2 times daily as needed. LW Comment:CALVES lancets (ONE TOUCH LW Addl Instr:CHECK 100 6 11/02/19 07 ULTRASOFT LANCETS) GLUCOSE 1-2 TIMES WEEKLY PRIOR TO BREAKFAST Multiple Take 1 tablet by 13 11/01/2006 Vitamins-Minerals mouth daily (every 24 (MULTIVITAMIN OR) hours). Tadalafil (AKA CIALIS) Take 5-10 mg by mouth 6 3 20 MG tablet daily as needed. LW Comment:1 TO 1/2 TAB NEEDED LW Addl Instr:Take 30-60 minutes prior to sexual activity. Effects may last up to 36 hours. Indicated for: Erectile Dysfunction latanoprost (XALATAN) Place 1 drop into 2.5 0 18/2 007 04/11/2007 0.005 % eye drop both eyes every solution evening. latanoprost (XALATAN) Place 1 drop into 2.5 0 03/01/2 006 04/11/2007 0.005 % eye drop both eyes every solution evening. latanoprost (XALATAN) Place 1 drop into 2 0 17/2 004 04/11/2007 0.005 % eye drop both eyes every solution evening. testosterone (ANDROGEL) Place 0.5 packets 3 11/0101/12/2008 50 MG/5GM (1%) gel onto the skin daily (every 24 hours). testosterone (ANDROGEL) Place 1.5 packets 135 3 01/1801/12/2008 50 MG/5GM (1%) gel onto the skin daily (every 24 hours). testosterone (ANDROGEL) Place 1 packet onto 90 3 01/12/2008 50 MG/5GM (1%) gel the skin daily (every 24 hours). documented as of this encounter Procedure Notes Henrique Palacios MD - 12/21/2006 12:01 AM CDT Procedures signed by Henrique Palacios MD at 12/21/06 9327 Author: Henrique Palacios MD Service: (none) Author Type: Physician Filed: 08/29/102058 Note Time: 12/21/06 1050 Status: Signed Parachute Officer: Henrique Palacios MD (Physician) Patient Name: Mo Sotelo Procedure: Colonoscopy Indications: High risk colon ca screening: Personal history of adenomatous polyps Providers: Henrique Palacios MD, Phoebe Heart RN Referring MD: Nando Carolina MD Medicines: Fentanyl 100 micrograms IV, Midazolam 2 mg IV Complications: No immediate complications Procedure: After I obtained informed consent, the scope was passed under direct vision. Throughout the procedure, the patient's blood pressure, pulse, and oxygen saturations were monitored continuously. The [id number] colonoscope was introduced through the anus and advanced to the ileum. The colonoscopy was performed without difficulty. The patient tolerated the procedure well. The quality of the prep was good. Findings: A flat polyp was found in the cecum. The polyp was 5 mm in size. Biopsies were taken with a cold forceps for histology. Fulguration to ablate the lesion by monopolar probe was successful. A flat polyp was found in the transverse colon. The polyp was 6 mm in size. The polyp was removed with a hot snare. Resection and retrieval were complete. A sessile polyp was found in the rectum. The polyp was 3 mm in size. The polyp was removed with a hot snare. Resection and retrieval were complete. Impression: - One 5 mm polyp in the cecum. This was biopsied. - One 6 mm polyp in the transverse colon. Resected and retrieved. - One 3 mm polyp in the rectum. Resected and retrieved. Recommendation: - Await pathology results. - Repeat colonoscopy in 3 - 5 years for screening purposes. - Return to primary care physician PRN. CPT4 Code(s): 19251, 51, Colonoscopy, flexible, proximal to splenic flexure; with ablation of tumor(s), polyp(s), or other lesion(s) not amenable to removal by hot biopsy forceps, bipolar cautery or snare technique 66468, Colonoscopy, flexible, proximal to splenic flexure; with removal of tumor(s), polyp(s), or other lesion(s) by snare technique 36270, 51, Colonoscopy, flexible, proximal to splenic flexure; with biopsy, single or multiple ICD9 Code(s): 211.3, Benign neoplasm of colon V12.72, Personal history of colonic polyps V76.51, Special screening for malignant neoplasms, colon The codes documented in this report are preliminary and upon truck engine technician review may be revised to meet current compliance requirements. Henrique Palacios MD Signed Date: 12/21/2006 11:58:28 AM Number of Addenda: 0 This document has been electronically signed. Note generated on 12/21/2006 10:50:04 AM documented in this encounter Plan of Treatment Not on filedocumented as of this encounter Procedures Procedure Name Priority Date/Time Associated Comments Diagnosis SURGICAL JEFF CARR Routine 12/21/2006 12:37 PM R esults for this NICOLLET CDT procedure are i n the results section. ENDOSCOPY OBTAINED Routine 12/21/2006 12:04 PM Re sulamy for this ANATOMICAL PATH CDT procedure ar e in the results section. documented in this encounter Results Pathology Report (12/21/2006 12:37 PM CDT) [facility] gist Method Time Signature Surgical SEE TEXT No normal HP CONVERSION Pathology range Comment: Patient: MO SOTELO ?S URGICAL PATHOLOGY REPORT Pathology # ??[id number] ?Date Obtained: ? Date Received: DIAGNOSIS: A) ??Colon, cecum and rectum, endoscopic biopsies: ?- Multiple fragments of hyperplast ic polyps, no evidence of adenomatous ?change or malignancy. B) ??Colon, transverse, endoscopic biops ies: ?- Benign polyp, favor sessile serr ated adenoma, no overt adenomatous ?nuclear features. ?Lorena Acevedo M.D. ?(electronic signature) JSM/JSM/beh Date of Report: 12/22/06 Pathology # ??[id number] ?Date Obtained: ? Date Received: ORGAN/TISSUE SITE: ?Cecal rectal polyp/Transverse poly p GROSS DESCRIPTION: A) ??The specimen is labeled cecal recta l polyps and consists of multiple [place]ona ?mucosal tissue fragments averaging 0.1 cm in greatest dimension. ??Entirely ?submitted in cassette [id number] A. B) ??The specimen is labeled transverse polyp and consists of a single [place] ?mucosal tissue fragment measuring 0.5 cm in greatest dimension. ??Entirely ?submitted in cassette [id number] B. AMW/ajn MICROSCOPIC DESCRIPTION: A-B) The microscopic examination substan tiates the diagnoses cited. Specimen (Source) Anatomical Collection Method Collection Time Re ceived Time Location / / Volume Laterality 12/21/2006 12:37 PM CDT Henrique Palacios MD LAB_1 Performing Organization Address City/State/ZIP Code Phon e Number HP CONVERSION Endoscopy Obtained Anatomical Path (12/21/2006 12:04 PM CDT) P athologist Signature Endo Tis Done No normal HP CONVERSION range Specimen (Source) Anatomical Collection Method Collection Time Re ceived Time Location / / Volume Laterality 12/21/2006 12:04 PM CDT Henrique Palacios MD LAB_1 Performing Organization Address City/State/ZIP Code Phon e Number HP CONVERSION documented in this encounter Visit Diagnoses Not on filedocumented in this encounter
--- OUTSIDE RECORDS SUMMARY | 2022-03-19 02:54 | XMS_ITS | Encounter Summary ---
:1940 Author Organization [facility] Address [address] [place] [address] Care Team Providers Name Role Phone Unavailable Primary Care Provider Unavailable Encounter Details Date Type Department Care Team Description 04/21/2006 Procedure Visit [facility] [address] Miller Anderson, OD Ophthalmology OFF SITE [address] [place] [address] [facility], [address] [phone] Social History Tobacco Use Types Packs/Day Years Used Date Smoking Tobacco: Never Assessed Sex Assigned at Date Recorded Not on file documented as of this encounter Plan of Treatment Not on filedocumented as of this encounter Visit Diagnoses Not on filedocumented in this encounter
--- OUTSIDE RECORDS SUMMARY | 2022-03-19 02:54 | XMS_ITS | Encounter Summary ---
:1940 Author Organization [facility] Address [address] [place] [address] Care Team Providers Name Role Phone Unavailable Primary Care Provider Unavailable Encounter Details Date Type Department Care Team Description 03/15/2017 Notes/Orders [facility] 6500 Anurag Green MD Gastroenterology [address] [place] [address] [place] [address] [phone] Social History Tobacco Use Types Packs/Day Years Used Date Smoking Tobacco: Former Comments: Quit smoking: Alcohol Use Standard Drinks/Week Comments Yes 0 (1 standard drink = 0.6 oz pure alcoho l) Sex Assigned at Date Recorded Not on file documented as of this encounter Plan of Treatment Not on filedocumented as of this encounter Visit Diagnoses Not on filedocumented in this encounter
--- OUTSIDE RECORDS SUMMARY | 2022-03-19 02:54 | XMS_ITS | Encounter Summary ---
:1940 Author Organization [facility] Address [address] [place] [address] Care Team Providers Name Role Phone Unavailable Primary Care Provider Unavailable Encounter Details Date Type Department Care Team Description 04/27/2006 Brands Editor Only [facility] 3800 Rashid Pichardo MD Endocrinology 38[address] [facility] [address] [place] [id number] [phone] Social History Tobacco Use Types Packs/Day Years Used Date Smoking Tobacco: Never Assessed Sex Assigned at Date Recorded Not on file documented as of this encounter Progress Notes Rashid Pichardo MD - 04/27/2006 12:01 AM CST Progress Notes signed by Rashid Pichardo MD at 04/27/06 2226 Author: Rashid Pichardo MD Service: (none) Author Type: Physician Filed: 08/29/10 1611 Note Time: 04/27/06 0001 Status: Signed Education Department Chair: Rashid Pichardo MD (Physician) 04/27/06: Labs reviewed. Testosterone and hgb borderline high. Consider going back to one packet of Androgel applied daily. Lab letter sent. JALEN Pichardo MD CLOTH FOLDER documented in this encounter Plan of Treatment Not on filedocumented as of this encounter Visit Diagnoses Not on filedocumented in this encounter
--- OUTSIDE RECORDS SUMMARY | 2022-03-19 02:54 | XMS_ITS | Encounter Summary ---
:1940 Author Organization [facility] Address [address] [place] [address] Care Team Providers Name Role Phone Unavailable Primary Care Provider Unavailable Reason for Visit Reason Comments Other Encounter Details Date Type Department Care Team Description 03/24/2006 Telephone CONV [id number] 3nder, Message Other [address] [place] [address] Social History Tobacco Use Types Packs/Day Years Used Date Smoking Tobacco: Never Assessed Sex Assigned at Date Recorded Not on file documented as of this encounter Progress Notes Vertigo, Message - 03/24/2006 11:00 AM CST Phone Note filed by [employer] at 08/26/10 1047 Author: [employer] Service: (none) Author Type: (none) Filed: 08/26/10 1047 Note Time: 03/24/06 1100 Status: Signed Getter Filler: [facility] GI dept mailed letter reminding pt to schedule f/u colonoscopy due in Jun 2006. Created on 24Mar2006 11:00am by MIKE MARTINEZ UTIVE RECEPTIONIST documented in this encounter Plan of Treatment Not on filedocumented as of this encounter Visit Diagnoses Not on filedocumented in this encounter
--- OUTSIDE RECORDS SUMMARY | 2022-03-19 02:54 | XMS_ITS | Encounter Summary ---
:1940 Author Organization [facility] Address [address] [place] [address] Care Team Providers Name Role Phone Unavailable Primary Care Provider Unavailable Encounter Details Date Type Department Care Team Description 09/05/2010 PN Conversion Only [facility] Mony Garay HMD Medicine [id number] [place] [address] [place] [address] [place] [address] [phone] Social History Tobacco Use Types Packs/Day Years Used Date Smoking Tobacco: Never Assessed Sex Assigned at Date Recorded Not on file documented as of this encounter Plan of Treatment Not on filedocumented as of this encounter Visit Diagnoses Not on filedocumented in this encounter
--- OUTSIDE RECORDS SUMMARY | 2022-03-19 02:54 | XMS_ITS | Encounter Summary ---
:1940 Author Organization [facility] Address [address] [place] [address] Care Team Providers Name Role Phone Unavailable Primary Care Provider Unavailable Encounter Details Date Type Department Care Team Description 12/21/2006 PN Conversion Only [facility] GASTROENTEROLOG Y Henrique Palacios MD [address] [place], [place] [id number] (Wo rk) Social History Tobacco Use Types Packs/Day Years Used Date Smoking Tobacco: Never Assessed Sex Assigned at Date Recorded Not on file documented as of this encounter Plan of Treatment Not on filedocumented as of this encounter Visit Diagnoses Not on filedocumented in this encounter
--- OUTSIDE RECORDS SUMMARY | 2022-03-19 02:54 | XMS_ITS | Clinical Summary ---
:1940 Author Organization [facility] Address [address] [place] [address] Care Team Providers Name Role Phone Non Pn, Clinician MD Primary Care Provider Unavailable Source Comments You are receiving this document as you are listed as the primary care provider,follow-up provider, or the patient has been referred to you for consultation.This is in compliance with the Medicare and Medicaid EHR Incentive Program,which states Providers who transition their patient to another setting of careor provider of care or refers their patient to another provider of care shouldprovide summarycare record for each transition of care or referral. [facility] Allergies No known active allergies Medications Medication Sig Dispensed Refills Start Date End Date Status lancets (ONE TOUCH LW Addl 100 6 11/01/2006 Active ULTRASOFT LANCETS) Instr:CHECK GLUCOSE 1-2 TIMES WEEKLY PRIOR TO BREAKFAST amLODIPine (AKA Take 1 tablet by 90 3 11/01/2006 Active NORVASC) 5 MG tablet mouth daily (every 24 hours). LW Addl Instr:Indicated for: High Blood Pressure hydrocortisone 2.5 % Apply 1 0 11/01/2006 Active cream Application topically 2 times daily as needed. LW Comment:CALVES latanoprost (XALATAN) Place 1 drop into 2.5 2 04/11/2007 Active 0.005 % eye drop both eyes every solution evening. Tadalafil (AKA CIALIS) Take 5-10 mg by 6 3 11/01/2006 Active 20 MG tablet mouth daily as needed. LW Comment:1/4 TO 1/2 TAB NEEDED LW Addl Instr:Take 30-60 minutes prior to sexual activity. Effects may last up to 36 hours. Indicated for: Erectile Dysfunction blood glucose (ONE LW Addl 100 6 11/01/2006 Active TOUCH ULTRA TEST) Instr:CHECK strip GLUCOSE 1-2 TIMES WEEKLY PRIOR TO BREAKFAST Flaxseed Oil (LINSEED Take by mouth. 3 11/01/2006 Active OIL) Multiple Take 1 tablet by 13 11/01/2006 Ac tive Vitamins-Minerals mouth daily (every (MULTIVITAMIN OR) 24 hours). ascorbic acid (AKA Indications: PN: 0 11/01/2006 Active VITAMIN C) 500 MG tablet CALCIUM CARB-MAGNESIUM LW Addl Instr:TAKE 0 11/02/19 07 Active CARB OR WITH FOOD. blood glucose monitor LW Addl 1 0 11/01/2006 Active system (ONE TOUCH Instr:CHECK ULTRA SYSTEM KIT) GLUCOSE 1-2 TIMES W/DEVICE WEEKLY PRIOR TO BREAKFAST aspirin 325 MG Take 1 tablet by 03/01/2006 Active tabletIndications: mouth every other INA HERRERA day. WedDec 30, 2011 9:46 AM patient stopped 5 days ago for procedure. testosterone Place 1 packet 15 0 01/12/2008 A ctive (ANDROGEL) 50 MG/5GM onto the skin (1%) gel every other day. pravastatin Take 40 mg by 0 12/22/2011 Act yefri (PRAVACHOL) 40 MG mouth daily (every tablet 24 hours). metFORMIN (GLUCOPHAGE) Take 1,000 mg by 0 12/22/2011 Active 1000 MG tablet mouth 2 times daily (with meals). Active Problems Problem Noted Date Testicular hypofunction 08/03/2005 Overview: LW Onset: ; Hypogonadism Primary Male Impaired glucose tolerance test 08/03/2005 Overview: LW Onset: ; Glucose Intolerance (Impaired Toleranc e) Tobacco use disorder 08/03/2005 Overview: LW Modifier: QUIT 1999; 30 P/Y ; Tobacco Abuse Benign neoplasm of colon 08/03/2005 Overview: LW Modifier: NEED REPEAT COLONOSCOPY 200 7 LW Onset: 06/2003 ; Polyp Colon Adenomatous Primary open angle glaucoma 04/25/2004 Overview: LW Onset: [id number] ; Glaucoma Open Angle Primary Essential hypertension 10/14/2002 Overview: Hypertension Immunizations Name Administration Dates Next Due Flu Vac Preserv Free (3+yrs) 02/15/2006, 03/09/2005, 004 Influenza, Unspecified Formulation 02/27/2003, 03/14/2002, 1 , 03/10/1999, 02/14/1998, 03/02/1996 PPSV23 (Pneumovax) 08/03/2005 Td 12/21/2001, 10/05/1991 Social History Tobacco Use Types Packs/Day Years Used Date Smoking Tobacco: Former Smokeless Tobacco: Never Comments: Quit smoking: Alcohol Use Standard Drinks/Week Comments Yes 0 (1 standard drink = 0.6 oz pure alcoho l) Sex Assigned at Date Recorded Not on file Last Filed Vital Signs Vital Sign Reading Time Taken Comments Blood Pressure 123/78 03/23/2017 1:26 PM TEMPERING KILN TENDER Pulse 63 03/23/2017 1:26 PM TEMPERING KILN TENDER Temperature - - Respiratory Rate 16 03/23/2017 1:26 PM TEMPERING KILN TENDER Oxygen Saturation 100% 03/23/2017 1:26 PM TEMPERING KILN TENDER Inhaled Oxygen Concentration - - Weight 99.8 kg (220 lb) 12/30/2011 9:52 AM CDT Height 180.3 cm (5' 11) 12/30/2011 9:52 AM CDT Body Mass Index 30.68 12/30/2011 9:52 AM CDT Plan of Treatment Health Maintenance Due Date Last Done Comments Medicare Annual Wellness 1940 Visit COVID-19 Vaccine (#1) 1940 Zoster/Shingles (1 of 2) 1988 DTaP/Tdap/Td (1 - Tdap) 12/22/2001 12/21/2001, 10/05/1991 Pneumococcal 65+ Yrs (2 - 08/03/2006 08/03/2005 PCV) Colonoscopy 03/23/2020 03/23/2017, 01/01/2012 (Completed), 12/27/2006 Influenza (#1) 2022 02/15/2006, 03/09/2005, 04/23/2004, Additional history exists HepA Aged Out No longer eligib le based on patient 's age to complete this topic HepB Aged Out No longer eligib le based on patient 's age to complete this topic Hib Aged Out No longer eligib le based on patient 's age to complete this topic IPV (Polio) Aged Out No longer eligib le based on patient 's age to complete this topic MCV4 Aged Out No longer eligib le based on patient 's age to complete this topic Insurance Payer Benefit Plan / Subscriber ID Effective Dates Phone Addre ss Type Group MEDICARE MEDICARE [id number] 2002-Presen [id number] Me dicare MANAGED CARE t 63 BCBS BCBS BCBS [place] [id number] 2016-Presen [id number] [address] [address] Medicare BLUE t [address] [place] [id number] Mo Daley Personal/Family Self 1940 [address] (Home) [facility] [phone] [place] [id number] Care Teams Process Mold Technician Relationship Specialty Start Date End Date Non Pn, Clinician, PCP - General 06/10/20 [place] [address]
--- OUTSIDE RECORDS SUMMARY | 2022-03-19 02:54 | XMS_ITS | Encounter Summary ---
:1940 Author Organization [facility] Address [address] [place] [address] Care Team Providers Name Role Phone Unavailable Primary Care Provider Unavailable Encounter Details Date Type Department Care Team Description 12/27/2006 Notes/Orders [facility] icine Conversion, User [address] [place] [address] [place], [place] [phone] Social History Tobacco Use Types Packs/Day Years Used Date Smoking Tobacco: Never Assessed Sex Assigned at Date Recorded Not on file documented as of this encounter Plan of Treatment Not on filedocumented as of this encounter Procedures Procedure Name Priority Date/Time Associated Diagnosis Comme nts ENDOSCOPY, COLON, Routine 12/27/2006 1:51 PM CDT SCREENING/DIAGNOSTIC documented in this encounter Results Endoscopy, colon, diagnostic (12/27/2006 1:51 PM CDT) Specimen (Source) Anatomical Location Collection Method / Collectio n Time Received Time / Laterality Volume User Conversion PN GI PROCEDURE ORDERABLES Performing Organization Address City/State/ZIP Code Phon e Number HP CONVERSION documented in this encounter Visit Diagnoses Not on filedocumented in this encounter
--- OUTSIDE RECORDS SUMMARY | 2022-03-19 02:54 | XMS_ITS | Encounter Summary ---
:1940 Author Organization [facility] Address [address] [place] [address] Care Team Providers Name Role Phone Unavailable Primary Care Provider Unavailable Reason for Visit Reason Comments Other Encounter Details Date Type Department Care Team Description 12/14/2006 Telephone [facility] 6500 Stacy Lofton RN Other Gastroenterology [address] [facility] [place], [place] [address] Social History Tobacco Use Types Packs/Day Years Used Date Smoking Tobacco: Never Assessed Sex Assigned at Date Recorded Not on file documented as of this encounter Progress Notes Stacy Lofton RN - 12/14/2006 10:20 AM CDT Phone Note filed by Stacy Lofton RN at 08/27/10133 Author: Stacy Lofton RN Service: (none) Author Type: Registered Nurse Filed: 08/27/10133 Note Time: 12/14/06 1020 Status: Signed Batting Machine Operator: Stacy Lofton RN (Registered Nurse) LM on ans.machine asking pt to call for PPA Created on 14Dec2006 10:20am by STACY LOFTON MAINTENANCE TECHNICIAN documented in this encounter Plan of Treatment Not on filedocumented as of this encounter Visit Diagnoses Not on filedocumented in this encounter
--- OUTSIDE RECORDS SUMMARY | 2022-03-19 02:54 | XMS_ITS | Encounter Summary ---
:1940 Author Organization [facility] Address [address] [place] [address] Care Team Providers Name Role Phone Unavailable Primary Care Provider Unavailable Reason for Referral (Routine) - Closed Specialty Diagnoses / Procedures Referred By Contact Refer red To Contact Procedures Henrique Palacios MD Endoscopy, colon, diagnostic [address] [place], [place] [address] Referral ID Status Reason Start Date Expiration Date Visits Requ ested Visits Authorized [id number] Closed 03/23/2017 06/22/2018 1 1 OLOGY PHYSICIAN ASSISTANT Reason for Visit (Routine) - Closed Specialty Diagnoses / Procedures Referred By Contact Refer red To Contact Procedures Henrique Palacios MD Endoscopy, colon, diagnostic [address] [place], [place] [address] Referral ID Status Reason Start Date Expiration Date Visits Requ ested Visits Authorized [id number] Closed 03/23/2017 06/22/2018 1 1 Encounter Details Date Type Department Care Team Description 03/23/2017 [facility] Henrique Palacios neopl asm of Encounter Gastroenterology MD Ludivina colon, unspecified Endoscopy Procedures [address] part of colon [address] [facility] (Primary Dx) [place] [address] [facility] [phone] [place] [address] Social History Tobacco Use Types Packs/Day Years Used Date Smoking Tobacco: Former Smokeless Tobacco: Never Comments: Quit smoking: Alcohol Use Standard Drinks/Week Comments Yes 0 (1 standard drink = 0.6 oz pure alcoho l) Sex Assigned at Date Recorded Not on file documented as of this encounter Last Filed Vital Signs Vital Sign Reading Time Taken Comments Blood Pressure 123/78 03/23/2017 1:26 PM RADIOLOGY PHYSICIAN ASSISTANT Pulse 63 03/23/2017 1:26 PM RADIOLOGY PHYSICIAN ASSISTANT Temperature - - Respiratory Rate 16 03/23/2017 1:26 PM RADIOLOGY PHYSICIAN ASSISTANT Oxygen Saturation 100% 03/23/2017 1:26 PM RADIOLOGY PHYSICIAN ASSISTANT Inhaled Oxygen Concentration - - Weight - - Height - - Body Mass Index - - documented in this encounter Medications at Time of Discharge Medication Sig Dispensed Refills Start Date End Date amLODIPine (AKA NORVASC) Take 1 tablet by mouth 90 3 11/01/2006 5 MG tablet daily (every 24 hours). LW Addl Instr:Indicated for: High Blood Pressure ascorbic acid (AKA Indications: PN: 0 11/01/2006 VITAMIN C) 500 MG tablet aspirin 325 MG Take 1 tablet by mouth 13 6 tabletIndications: every other day. INA HERRERA WedDec 30, 2011 9:46 AM patient stopped [...] GLUCOSE 1-2 TIMES WEEKLY PRIOR TO BREAKFAST latanoprost (XALATAN) Place 1 drop into both 2.5 2 0.005 % eye drop solution eyes every evening. metFORMIN (GLUCOPHAGE) Take 1,000 mg by mouth 0 0 12/22/2011 1000 MG tablet 2 times daily (with meals). Multiple Take 1 tablet by mouth 13 11/01/2006 Vitamins-Minerals daily (every 24 (MULTIVITAMIN OR) hours). pravastatin (PRAVACHOL) Take 40 mg by mouth 0 40 MG tablet daily (every 24 hours). Tadalafil (AKA CIALIS) 20 Take 5-10 mg by mouth 6 3 11/01/2006 MG tablet daily as needed. LW Comment:/4 TO 1/2 TAB NEEDED LW Addl Instr:Take 30-60 minutes prior to sexual activity. Effects may last up to 36 hours. Indicated for: Erectile Dysfunction testosterone (ANDROGEL) Place 1 packet onto 15 0 08/2007 50 MG/5GM (1%) gel the skin every other day. documented as of this encounter Progress Notes Sugey Deutsch RN - 03/23/2017 1:29 PM CST Patient alert, oriented. Denies pain at this time. Tolerating liquids. Discussed discharge teaching.Patient/family given handouts. Verbalized understanding. OLOGY PHYSICIAN ASSISTANT Destiney Veras RN - 03/23/2017 12:50 PM CST Vitals charted per department protocol.Patient tolerated procedure. Medications given intermittentlyfor pain/discomfort per MD instructions.Oxygen used for the procedure 2-5 liters OLOGY PHYSICIAN ASSISTANT documented in this encounter Procedure Notes Henrique Palacios MD - 03/23/2017 12:07 PM CST Patient Name: Mo Daley Procedure Date: 03/23/2017 12:07 PM Date of : 1940 Admit Type: Outpatient Age: 76 Gender: Male Note Status: Finalized Attending MD: Henrique Palacios MD Procedure: Colonoscopy Indications: High risk colon cancer surveillance: Personal history of colonic polyps, Last colonoscopy: December 2011 Providers: Henrique Palacios MD, Destiney Veras RN Referring MD: Medicines: Fentanyl 75 micrograms IV, Midazolam 1.5 mg IV Complications: No immediate complications. Procedure: After I obtained informed consent, the scope was passed under direct vision. Throughout the procedure, the patient's blood pressure, pulse, and oxygen saturations were monitored continuously. The [id number] was introduced through the anus and advanced to the terminal ileum, with identification of the appendiceal orifice and IC valve. The colonoscopy was performed without difficulty. The patient tolerated the procedure well. The quality of the bowel preparation was good. Findings: The terminal ileum appeared normal. A 3 mm polyp was found in the ascending colon. The polyp was sessile. The polyp was removed with a cold biopsy forceps. Resection and retrieval were complete. Two flat polyps were found in the transverse colon. The polyps were 5 mm in size. These polyps were removed with a cold snare. Resection and retrieval were complete. A 3 mm polyp was found in the descending colon. The polyp was sessile. The polyp was removed with a cold biopsy forceps. Resection and retrieval were complete. The exam was otherwise without abnormality. Impression: - The examined portion of the ileum was normal. - One 3 mm polyp in the ascending colon, removed with a cold biopsy forceps. Resected and retrieved. - Two 5 mm polyps in the transverse colon, removed with a cold snare. Resected and retrieved. - One 3 mm polyp in the descending colon, removed with a cold biopsy forceps. Resected and retrieved. - The examination was otherwise normal. Recommendation: - Await pathology results. - If the pathology report reveals adenomatous tissue, then repeat the colonoscopy for surveillance based on pathology results in 3 years. Procedure Code(s): --- Professional --- 16697, Colonoscopy, flexible; with removal of tumor(s), polyp(s), or other lesion(s) by snare technique 57644, 59, Colonoscopy, flexible; with biopsy, single or multiple Diagnosis Code(s): --- Professional --- Z86.010, Personal history of colonic polyps D12.2, Benign neoplasm of ascending colon D12.4, Benign neoplasm of descending colon D12.3, Benign neoplasm of transverse colon (hepatic flexure or splenic flexure) CPT copyright 2016 [employer]. All rights reserved. The codes documented in this report are preliminary and upon horticultural agent review may be revised to meet current compliance requirements. Henrique Palacios MD 03/23/2017 1:03:21 PM This document has been electronically signed. Number of Addenda: 0 Note Initiated On: 03/23/2017 12:07 PM Endoscopy Report OLOGY PHYSICIAN ASSISTANT documented in this encounter Plan of Treatment Not on filedocumented as of this encounter Procedures Procedure Name Priority Date/Time Associated Diagnosis Comme nts ENDOSCOPY OBTAINED Routine 03/23/2017 12:58 Benign neoplasm of Results for this ANATOMICAL PATH PM RADIOLOGY PHYSICIAN ASSISTANT colon, unspecified proced ure are in part of colon the results section. ENDOSCOPY, COLON, Routine 03/23/2017 12:07 Result s for this SCREENING/DIAGNOSTIC PM RADIOLOGY PHYSICIAN ASSISTANT procedu re are in the results section. SURGICAL PATH, PARK Routine 03/23/2017 6:00 AM Re sults for this NICOLLET RADIOLOGY PHYSICIAN ASSISTANT procedure are i n the results section. documented in this encounter Results Endoscopy Obtained Anatomical Path (03/23/2017 12:58 PM RADIOLOGY PHYSICIAN ASSISTANT) P athologist Signature Endo Tis Received PN SOFT Specimen Anatomical Collection Method Collection Time Receive d Time (Source) Location / / Volume Laterality 03/23/2017 12:58 03/23/2017 6:44 PM RADIOLOGY PHYSICIAN ASSISTANT PM RADIOLOGY PHYSICIAN ASSISTANT Narrative PN SOFT - 03/23/2017 6:46 PM RADIOLOGY PHYSICIAN ASSISTANT [place] [address] CLIA number [id number] Henrique Palacios MD LAB_1 Performing Organization Address City/State/ZIP Code Phon e Number PN SOFT [address] [phone] Endoscopy, colon, diagnostic (03/23/2017 12:07 PM RADIOLOGY PHYSICIAN ASSISTANT) Specimen (Source) Anatomical Collection Method Collection Time Re ceived Time Location / / Volume Laterality 03/23/2017 12:07 PM RADIOLOGY PHYSICIAN ASSISTANT Narrative [facility] ([facility]) - 03/23/2017 12:07 PM RADIOLOGY PHYSICIAN ASSISTANT Patient Name: Mo Daley Procedure Date: 03/23/2017 12:07 PM Date of : 1940 Admit Type: Outpatient Age: 76 Gender: Male Note Status: Finalized Attending MD: Henrique Palacios MD Procedure: ? Colonoscopy Indications: ? High risk colon cancer surveillance: ? Personal history of colonic polyps, ? Last colo noscopy: December 2011 Providers: ? Henrique bacon MD, Destiney Veras, ? RN Referring MD: ? Medicines: ? Fentanyl 75 mi crograms IV, Midazolam ? 1.5 mg IV Complications: ? No immediate com plications. Procedure: ? After I obtain ed informed consent, ? the scope was passed under direct ? vision. T hroughout the procedure, the ? patient's blood pressure, pulse, and ? oxygen sa turations were monitored ? continuou sly. The [id number] was ? introduce d through the anus and ? advanced to the terminal ileum, with ? identific ation of the appendiceal ? orifice a nd IC valve. The colonoscopy ? was perfo rmed without difficulty. The ? patient t olerated the procedure well. ? The quali ty of the bowel preparation ? was good. Findings: ? The terminal ileum appeared heber l. ? A 3 mm polyp was found in the asc ending colon. The ? polyp was sessile. The polyp was removed with a cold ? biopsy forceps. Resection and ret rieval were complete. ? Two flat polyps were found in the transverse colon. ? The polyps were 5 mm in size. The se polyps were ? removed with a cold snare. Resect ion and retrieval ? were complete. ? A 3 mm polyp was found in the aniceto cending colon. The ? polyp was sessile. The polyp was removed with a cold ? biopsy forceps. Resection and ret rieval were complete. ? The exam was otherwise without ab normality. Impression: ?- The examined portion of the ileum ? was heber l. ? - One 3 m m polyp in the ascending ? colon, re moved with a cold biopsy ? forceps. Resected and retrieved. ? - Two 5 m m polyps in the transverse ? colon, re moved with a cold snare. ? Resected and retrieved. ? - One 3 m m polyp in the descending ? colon, re moved with a cold biopsy ? forceps. Resected and retrieved. ? - The exa mination was otherwise ? normal. Recommendation: ?- Await patholog y results. ? - If the pathology report reveals ? adenomato us tissue, then repeat the ? colonosco py for surveillance based on ? pathology results in 3 years. Procedure Code(s): ?? --- Professional - -- ? 63840, Co lonoscopy, flexible; with ? removal o f tumor(s), polyp(s), or ? other les ion(s) by snare technique ? 23119, 59 , Colonoscopy, flexible; ? with biop sy, single or multiple Diagnosis Code(s): ?? --- Professional - -- ? Z86.010, Personal history of colonic ? polyps ? D12.2, Be nign neoplasm of ascending ? colon ? D12.4, Be nign neoplasm of descending ? colon ? D12.3, Be nign neoplasm of transverse ? colon (he patic flexure or splenic ? flexure) CPT copyright 2016 [employer]. All rights reserved. The codes documented in this report are preliminary and upon horticultural agent review may be revised to meet current compliance requirements. Henrique Palacios MD 03/23/2017 1:03:21 PM This document has been electronically si gned. Number of Addenda: 0 Note Initiated On: 03/23/2017 12:07 PM ? Endoscopy Report Procedure Note Henrique Palacios MD - 03/23/2017Format ting of this note might be different from the original. Patient Name: Mo Daley Procedure Date: 03/23/2017 12:07 PM Date of : 1940 Admit Type: Outpatient Age: 76 Gender: Male Note Status: Finalized Attending MD: Henrique Palacios MD Procedure: Colonoscopy Indications: High risk colon cancer surv eillance: Personal history of colonic polyps, Last colonoscopy: December 2011 Providers: Henrique Palacios MD, Yani Veras RN Referring MD: Medicines: Fentanyl 75 micrograms IV, Mi dazolam 1.5 mg IV Complications: No immediate complication s. Procedure: After I obtained informed con sent, the scope was passed under direct vision. Throughout the procedure, the patient's blood pressure, pulse, and oxygen saturations were monitored continuously. The [id number] was introduced through the anus and advanced to the terminal ileum, with identification of the appendiceal orifice and IC valve. The colonoscopy was performed without difficulty. The patient tolerated the procedure well. The quality of the bowel preparation was good. Findings: The terminal ileum appeared normal. A 3 mm polyp was found in the ascending colon. The polyp was sessile. The polyp was remove d with a cold biopsy forceps. Resection and retrieval were complete. Two flat polyps were found in the trans verse colon. The polyps were 5 mm in size. These arabella yps were removed with a cold snare. Resection an d retrieval were complete. A 3 mm polyp was found in the descendin g colon. The polyp was sessile. The polyp was remove d with a cold biopsy forceps. Resection and retrieval were complete. The exam was otherwise without abnormal ity. Impression: - The examined portion of th e ileum was normal. - One 3 mm polyp in the ascending colon, removed with a cold biopsy forceps. Resected and retrieved. - Two 5 mm polyps in the transverse colon, removed with a cold snare. Resected and retrieved. - One 3 mm polyp in the descending colon, removed with a cold biopsy forceps. Resected and retrieved. - The examination was otherwise normal. Recommendation: - Await pathology result s. - If the pathology report reveals adenomatous tissue, then repeat the colonoscopy for surveillance based on pathology results in 3 years. Procedure Code(s): --- Professional --- 68243, Colonoscopy, flexible; with removal of tumor(s), polyp(s), or other lesion(s) by snare technique 60704, 59, Colonoscopy, flexible; with biopsy, single or multiple Diagnosis Code(s): --- Professional --- Z86.010, Personal history of colonic polyps D12.2, Benign neoplasm of ascending colon D12.4, Benign neoplasm of descending colon D12.3, Benign neoplasm of transverse colon (hepatic flexure or splenic flexure) CPT copyright 2016 [employer]. All rights reserved. The codes documented in this report are preliminary and upon horticultural agent review may be revised to meet current compliance requirements. Henrique Palacios MD 03/23/2017 1:03:21 PM This document has been electronically si gned. Number of Addenda: 0 Note Initiated On: 03/23/2017 12:07 PM Endoscopy Report Henrique Palacios MD PN [facility] PROCEDURE ORDERABLES Performing Organization Address City/State/ZIP Code Phon e Number [facility] ([facility]) [facility] ([facility]) [place], [place] Pathology Report (03/23/2017 6:00 AM RADIOLOGY PHYSICIAN ASSISTANT) [facility] Method Time Signature Path: FINAL SURGICAL PATHOLOGY REPORT PN SOFT Pathology #: [id number] ?Date Obtained: 03/23/2017 ? Date Received: 03/23/2017 DIAGNOSIS: A. Colon, mucosal biopsies, ascending and transverse polyps : ?? -Tubular adenomas. B. Colon, mucosal biopsies, descending polyp: ?? -Diminutive tubular adenoma. ?NAYELY JACOBSON MD ? (electronic signatur e) ? 03/25/2017 ??09:3 1 CLINICAL NOTES: None given GROSS DESCRIPTION: A. ??Received in formalin labeled ascending and transverse polyps are 3 ?? polypoid portions of barahona-pink tissue measuring 0.6 x 0.3 x 0.2 cm in ?? greatest dimension which are filtered and submitted in o ne cassette. B. ??Received in formalin labeled descending polyp is a 0.4 x 0.3 x 0.2 ?? cm irregular barahona-pink tissue is filtered and submitted i n one ?? cassette. ? LUNMA MICROSCOPIC DESCRIPTION: The microscopic examination has been performed. Performed at [facility], [address] [place] [address] Specimen Anatomical Collection Method Collection Time Receive d Time (Source) Location / / Volume Laterality COLON STRUCTURE / 03/23/2017 6:00 AM 03/10 6:00 Unknown RADIOLOGY PHYSICIAN ASSISTANT AM RADIOLOGY PHYSICIAN ASSISTANT Henrique Palacios MD LAB_1 Performing Organization Address City/State/ZIP Code Phon e Number [id number] [place] [address] [phone] documented in this encounter Visit Diagnoses Diagnosis Benign neoplasm of colon, unspecified pa rt of colon - Primary documented in this encounter Administered Medications Inactive Administered Medications - up to 3 most recent administrations Medication Order MAR Action Action Date Dose Rate Site fentaNYL (SUBLIMAZE) injection Given 03/23/2017 12:49 PM RADIOLOGY PHYSICIAN ASSISTANT 75 mcg 25-100 mcg 25-100 mcg, Intravenous, PRN, Other, Moderate Sedation, Starting on Wed03/23/17 at 1232, Until Wed04/13/17 at 0206, Administer in 25-100 mcg increments as directed by endoscopy procedure MD up to a total of 300 mcg. midazolam (VERSED) injection 0.5-2 mg Given 03/23/2017 12:49 PM RADIOLOGY PHYSICIAN ASSISTANT 1.5 mg 0.5-2 mg, Intravenous, PRN, Sedation, Starting on Wed03/23/17 at 1232, Until Wed04/13/17 at 0206, Administer in 0.5-2 mg increments as directed by endoscopy procedure MD up to a total of 8 mg. sodium chloride 0.9% injection 10-60 mL Given 03/23/2017 12:49 PM RADIOLOGY PHYSICIAN ASSISTANT 10 mL 10-60 mL, Intravenous, PRN, Line Patency, Line Care, Starting on Wed03/23/17 at 1232, Until Wed04/13/17 at 0206 documented in this encounter
--- OUTSIDE RECORDS SUMMARY | 2022-03-19 02:54 | XMS_ITS | Encounter Summary ---
:1940 Author Organization [facility] Address [address] [place] [address] Care Team Providers Name Role Phone Unavailable Primary Care Provider Unavailable Reason for Visit Reason Comments Other Encounter Details Date Type Department Care Team Description 04/20/2006 Telephone [facility], Message Other [address] [place], [place] [id number] Social History Tobacco Use Types Packs/Day Years Used Date Smoking Tobacco: Never Assessed Sex Assigned at Date Recorded Not on file documented as of this encounter Progress Notes Sandra Osman MD - 04/20/2006 3:02 PM CST Phone Note filed by Sandra Osman MD at 08/26/10 095 Author: Sandra Osman MD Service: (none) Author Type: Physician Filed: 08/26/101207 Note Time: 04/20/06 1502 Status: Signed Corner Block Cutter: Sandra Osman MD (Physician) YAZMIN CALL HIM. NEW INSURANCE COVERAGE WILL NOT COVER VIAGRA. HE CAN CHECK WITH THEM TO SEE IF THEY COVER LEVITRA OR CIALIS. IF THEY DO, I CAN WRITE HIM NEW RX. IF THEY DON'T THEN IT IS OUT OF POCKET FOR HIM. Created on 20Apr2006 3:02pm by SANDRA OSMAN On 20Apr2006 4:36pm YAZMIN TRAYLOR wrote: patient called and advised of above. Acknowledged by YAZMIN TRAYLOR on 4:36pm LSTERY HANDLER documented in this encounter Plan of Treatment Not on filedocumented as of this encounter Visit Diagnoses Not on filedocumented in this encounter
--- OUTSIDE RECORDS SUMMARY | 2022-03-19 02:54 | XMS_ITS | Encounter Summary ---
:1940 Author Organization [facility] Address [address] [place] [address] Care Team Providers Name Role Phone Unavailable Primary Care Provider Unavailable Reason for Visit Reason Comments Other Encounter Details Date Type Department Care Team Description 01/11/2008 Telephone [facility] [address], Message Other [address] [place], [place] [address] Social History Tobacco Use Types Packs/Day Years Used Date Smoking Tobacco: Never Assessed Sex Assigned at Date Recorded Not on file documented as of this encounter Progress Notes Genny Echeverria - 01/11/2008 8:57 AM CDT Phone Note filed by Genny Echeverria at 08/28/10446 Author: Genny Echeverria Service: (none) Author Type: (none) Filed: 08/28/10446 Note Time: 01/11/08856 Status: Signed Paster Operator: Imr Conversion Prescription Refill Please provide enough refills to last until patient's next visit. Comment:- lv 04-27-06 fv none Pharmacy Seq #:- [phone] Pharmacy Name:- Cub [phone] or City:[address] Clinician Name:- Jus Drug Name/Strength:- Androgel 1% (50mg) Gel Pckt Sig: Dose/Route/Freq:- Apply one and one-half packets to skin daily Quantity & Last Fill:- #150 08-29-08 Created on 11Jan2008 8:57am by GENNY LOPEZ On [id number] 9:00am EMILEE CUMMINGS wrote: Refill denial sent to the pharmacy. ACE BOSS documented in this encounter Plan of Treatment Not on filedocumented as of this encounter Visit Diagnoses Not on filedocumented in this encounter
--- OUTSIDE RECORDS SUMMARY | 2022-03-19 02:54 | XMS_ITS | Encounter Summary ---
:1940 Author Organization [facility] Address [address] [place] [address] Care Team Providers Name Role Phone Unavailable Primary Care Provider Unavailable Reason for Visit Reason Comments Other Encounter Details Date Type Department Care Team Description 10/07/2005 Telephone [facility], Message Other [address] [place] [address] Social History Tobacco Use Types Packs/Day Years Used Date Smoking Tobacco: Never Assessed Sex Assigned at Date Recorded Not on file documented as of this encounter [facility] Center, Message - 10/07/2005 9:31 AM CDT Phone Note filed by Secret Recipe at 08/26/10 0434 Author: Secret Recipe Service: (none) Author Type: (none) Filed: 08/26/10 0434 Note Time: 10/07/05930 Status: Signed Material Mixer: Secret Recipe PRESCRIPTION REFILL Please provide enough refills to last until patient's next visit. Comment:- Pharmacy Seq #:-[phone] Pharmacy Name:-[facility] [place] or City:[facility] Clinician Name:-Tanisha Drug Name/Strength:-Norvasc 2.5 mg tabs. Sig:-Take 1 tab daily. Quantity:-90 Last Fill:-05/08/05 Created on 07Oct2005 9:31am by GIOVANNA KHAN J On 07Oct2005 4:52pm KATJA GRIFFITH wrote: RX faxed. HER EDGER documented in this encounter Plan of Treatment Not on filedocumented as of this encounter Visit Diagnoses Not on filedocumented in this encounter
--- OUTSIDE RECORDS SUMMARY | 2022-03-19 02:54 | XMS_ITS | Encounter Summary ---
:1940 Author Organization [facility] Address [address] [place] [address] Care Team Providers Name Role Phone Unavailable Primary Care Provider Unavailable Encounter Details Date Type Department Care Team Description 11/01/2006 Office Visit [facility] Sandra Garay MD [facility] [address] [facility] [address] [place] [address] [place], [place] [id number] [phone] Social History Tobacco Use Types Packs/Day Years Used Date Smoking Tobacco: Never Assessed Sex Assigned at Date Recorded Not on file documented as of this encounter Last Filed Vital Signs Vital Sign Reading Time Taken Comments Blood Pressure 132/90 11/01/2006 10:17 AM CDT Pulse 72 11/01/2006 10:17 AM CDT Temperature - - Respiratory Rate - - Oxygen Saturation - - Inhaled Oxygen Concentration - - Weight 99.5 kg (219 lb 4.7 oz) 11/01/2006 10:17 AM C: 9 9.5kg CDT Height 177.2 cm (5' 9.75) 11/01/2006 10:17 AM C: 177.2 cm CDT Body Mass Index 31.69 11/01/2006 10:17 AM CDT documented in this encounter Progress Notes Sandra Garay MD - 11/01/2006 12:01 AM CDT Progress Notes signed by Sandra Garay MD at 11/02/06 1809 Author: Sandra Garay MD Service: (none) Author Type: Physician Filed: 08/29/102000 Note Time: 11/01/06 0001 Status: Signed Shellfish Bed Worker: Sandra Garay MD (Physician) NAME: ALEXANDR SOTELO MR#: [id number] ACCT: [id number] VISIT: [id number] DICTATING CLINICIAN: SANDRA Yonas MD JACQUI JOB: [id number] LOC: 506 CLINIC PROGRESS NOTE DATE OF VISIT: 11/01/2006 SUBJECTIVE: This patient is here for complete physical examination. This is a 66-year-old, white male. PAST MEDICAL HISTORY: Reviewed and updated on LastWord. HISTORY OF PRESENT ILLNESS: He is currently doing well. No particular problem. COMPLETE REVIEW OF SYSTEMS: Was negative. ADR/ALLERGIES: NO KNOWN DRUG ALLERGIES. CURRENT MEDICATIONS: Reviewed and updated on [employer]. 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 He quit smoking in 1999. He drinks 2 alcoholic beverages per week. FAMILY HISTORY: Dad with diabetes mellitus. Brother with hypertension. Mom had hypothyroidism. HEALTHCARE MAINTENANCE: Tetanus shot in 2001. PSA 04/2006 negative. Colonoscopy scheduled for 11/2006. OBJECTIVE: VS: BP: 132/90 elevated today. P: 72. Ht: 5 ft 9 in. Wt: 213 lb. He is concerned with a lesion on his right religious which looks like a seborrheic keratosis. No lymphadenopathy. Normocephalic, atraumatic. Conjunctivae and sclerae not injected. Pupils are equal and reactive. Nasal septum midline. TMs and posterior pharynx within normal limits. NECK: Supple. No thyromegaly. LUNGS: Clear. Chest wall nontender to palpation. HEART: Regular rhythm. No murmur. No extra sound. No JVD. No edema. He has good peripheral pulses and no carotid bruit. ABDOMINAL: Soft, nontender. No mass, nor organomegaly, no hernia. GENITALIA: Without suspicious lesions. No penile discharge. Both testes and epididymis normal. RECTAL: Revealed hemorrhoid. Prostate slightly enlarged, but no obvious nodule and nontender to palpation. NEURO: He is alert and oriented. Cranial nerves 2-12 grossly intact. Motor normal bulk, tones, and strength. Deep tendon reflexes symmetrical. Both his toes downgoing. Lfcpbo-ym-sqik symmetric. Romberg stable. Gait steady. ASSESSMENT: Complete physical examination. PLAN: His blood pressure has been elevated the last 3 times he was here. I recommended increasing Norvasc to 5 mg daily and write him a prescription. We will check lipid profile, ALT, electrolytes, BUN, creatinine, CBC, urinalysis, TSH, and glucose. We discussed seborrheic keratosis. This is entirely benign. He would like it removed. I will send him to dermatology. I refilled all his prescriptions. Return in 1 year unless blood pressure at home continues to run high. SHN:[id number] C: 11/02/06 10:18 DOCUMENT: [id number] documented in this encounter Plan of Treatment Not on filedocumented as of this encounter Visit Diagnoses Not on filedocumented in this encounter
--- OUTSIDE RECORDS SUMMARY | 2022-03-19 02:54 | XMS_ITS | Encounter Summary ---
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 [address] [id number] [phone] Social History Tobacco Use Types Packs/Day Years Used Date Smoking Tobacco: Former Smokeless Tobacco: Never Comments: Quit smoking: Alcohol Use Standard Drinks/Week Comments Yes 0 (1 standard drink = 0.6 oz pure alcoho l) Sex Assigned at Date Recorded Not on file documented as of this encounter Plan of Treatment Scheduled Orders Name Type Priority Associated Diagnoses Order S chedule Endoscopy, colon, GI Routine Screen for colon cancer 1 Occurrences starting diagnostic 03/24/2017 unti l 03/23/2019 documented as of this encounter Visit Diagnoses Diagnosis Screen for colon cancer - Primary Special screening for malignant neoplasm s, colon documented in this encounter
--- OUTSIDE RECORDS SUMMARY | 2022-03-19 02:54 | XMS_ITS | Encounter Summary ---
:1940 Author Organization [facility] Address [address] [place] [address] Care Team Providers Name Role Phone Unavailable Primary Care Provider Unavailable Encounter Details Date Type Department Care Team Description 12/30/2011 Hospital Encounter [facility] 650 0 Endoscopy [address] [facility] [place] [address] Social History Tobacco Use Types Packs/Day Years Used Date Smoking Tobacco: Never Assessed Sex Assigned at Date Recorded Not on file documented as of this encounter Last Filed Vital Signs Vital Sign Reading Time Taken Comments Blood Pressure 116/84 12/30/2011 10:45 AM CDT Pulse 67 12/30/2011 10:45 AM CDT Temperature - - Respiratory Rate 16 12/30/2011 10:45 AM CDT Oxygen Saturation 96% 12/30/2011 10:45 AM CDT Inhaled Oxygen Concentration - - Weight 99.8 kg (220 lb) 12/30/2011 9:52 AM CDT Height 180.3 cm (5' 11) 12/30/2011 9:52 AM CDT Body Mass Index 30.68 12/30/2011 9:52 AM CDT documented in this encounter Medications at Time [...] by 13 03/01/2006 tabletIndications: mouth every other VANESSA BRADSHAW. WedDec 30, 2011 9:46 AM patient stopped [...] BREAKFAST latanoprost (XALATAN) Place 1 drop into 2.5 2 007 0.005 % eye drop both eyes every solution evening. metFORMIN (GLUCOPHAGE) Take 1,000 mg by 0 012 1000 MG tablet mouth 2 times daily (with meals). Multiple Take 1 tablet by 13 11/01/2006 Vitamins-Minerals mouth daily (every 24 (MULTIVITAMIN OR) hours). pravastatin (PRAVACHOL) Take 40 mg by mouth 0 40 MG tablet daily (every 24 hours). Tadalafil (AKA CIALIS) Take 5-10 mg by mouth 6 3 20 MG tablet daily as needed. LW Comment:1/4 TO 1/2 TAB NEEDED LW Addl Instr:Take 30-60 minutes prior to sexual activity. Effects may last up to 36 hours. Indicated for: Erectile Dysfunction testosterone (ANDROGEL) Place 1 packet onto 15 0 08/2007 50 MG/5GM (1%) gel the skin every other day. metFORMIN (aka Take 1,000 mg by 0 12/22/201112/2015 GLUCOPHAGE) tablet TABS mouth 2 times daily (with meals). pravastatin (aka Take 40 mg by mouth 0 12/22/2011 11/15/2015 PRAVACHOL) tablet daily (every 24 hours). documented as of this encounter Progress Notes Vanessa Bradshaw RN - 12/30/2011 10:24 AM CDT monitor applied for heart rate in the 30's prior to exam sinus cesar. asymptomatic. dr palacios awarepatient tolerated procedure. documented in this encounter Procedure Notes Henrique Palacios MD - 12/30/2011 9:40 AM CDT Procedures signed by Henrique Palacios MD at 12/30/11939 Author: Henrique Palacios MD Service: (none) Author Type: Physician Filed: 12/30/11 1025 Note Time: 12/30/11939 Status: Signed Plug Saw Operator: Henrique Palacios MD (Physician) Patient Name: Mo Daley Gender: Jaime Procedure Date: 12/30/2011 09:40:00 AM Date of : 1940 Age: 71 Admit Type: Outpatient Note Status: Finalized Attending MD: Henrique Palacios MD Procedure: Colonoscopy Indications: High risk colon cancer surveillance: Personal history of colonic polyps, Last colonoscopy: December 2006 Providers: Henrique Palacios MD, Vanessa Bradshaw RN Referring MD: SANDRA OSMAN MD Medicines: Fentanyl 100 micrograms IV, Midazolam 2 mg IV Complications: No immediate complications. Procedure: - Prior to the procedure, a History and Physical was performed, and patient medications and allergies were reviewed. The patient is competent. The risks and benefits of the procedure and the sedation options and risks were discussed with the patient. All questions were answered and informed consent was obtained. Patient identification and proposed procedure were verified by the physician in the procedure room at 09:56 AM. Mental Status Examination: normal. Respiratory Examination: clear to auscultation. CV Examination: normal. After reviewing the risks and benefits, the patient was deemed in satisfactory condition to undergo the procedure. The anesthesia plan was to use moderate sedation / analgesia (conscious sedation). Immediately prior to administration of medications, the patient was re-assessed for adequacy to receive sedatives. The heart rate, respiratory rate, oxygen saturations, blood pressure, adequacy of pulmonary ventilation, and response to care were monitored throughout the procedure. The physical status of the patient was re-assessed after the procedure. After I obtained informed consent, the scope was passed under direct vision. Throughout the procedure, the patient's blood pressure, pulse, and oxygen saturations were monitored continuously. The [id number] colonoscope was introduced through the anus and advanced to the terminal ileum, with identification of the appendiceal orifice and IC valve. The colonoscopy was performed without difficulty. The patient tolerated the procedure well. The quality of the bowel preparation was good. Findings: Three sessile polyps were found in the rectum and in the cecum. The polyps were 2 to 3 mm in size. These polyps were removed with a cold biopsy forceps. Resection and retrieval were complete. The exam was otherwise without abnormality. Impression: - Three 2 to 3 mm polyps in the rectum and in the cecum. Resected and retrieved. - The examination was otherwise normal. Recommendation: - Await pathology results. - Repeat colonoscopy in 5 years for surveillance. CPT4 Code(s): 51398, Colonoscopy, flexible, proximal to splenic flexure; with biopsy, single or multiple ICD9 Code(s): 211.3, Benign neoplasm of colon 569.0, Anal and rectal polyp V12.72, Personal history of colonic polyps CPT Copyright 2011 [employer]. All Rights Reserved. The codes documented in this report are preliminary and upon director life review may be revised to meet current compliance requirements. Henrique Palacios MD Signed Date: 12/30/2011 10:24:39 AM Number of Addenda: 0 This document has been electronically signed. Note initiated on 12/30/2011 09:40:00 AM documented in this encounter Miscellaneous Notes Medication History - Luis Daniel Calderon MD - 12/30/2011 11:59 PM CDT INPATIENT MEDS Encounter Date: 12/30/11 0.9% sodium chloride latex free syringe 10 mL Start Date:12/30/11, End Date:12/31/11, Frequency:PRN Taken Dose Action User Route Site Recorded Comment Reason 12/30/11 1021 10 mL Given Vanessa Bradshaw RN Intravenous - 12/30/11 1021 - - Fentanyl Citrate (PF) (SUBLIMAZE) injection 25-100 mcg Start Date:12/30/11, End Date:12/31/11, Frequency:PRN Taken Dose Action User Route Site Recorded Comment Reason 12/30/11 1021 100 mcg Given Vanessa Bradshaw RN Intravenous - 12/30/11 1021 - - midazolam (VERSED) injection 0.5-2 mg Start Date:12/30/11, End Date:12/31/11, Frequency:PRN Taken Dose Action User Route Site Recorded Comment Reason 12/30/11 1021 2 mg Given Vanessa Bradshaw RN Intravenous - 12/30/11 1021 - - ondansetron (ZOFRAN) injection 4 mg Start Date:12/30/11, End Date:12/31/11, Frequency:ONCE PRN *No Administrations Recorded pravastatin (PRAVACHOL) 40 mg tablet Start Date:-, End Date:-, Frequency:DAILY *No Administrations Recorded metFORMIN (GLUCOPHAGE) 1,000 mg tablet Start Date:-, End Date:-, Frequency:2 TIMES DAILY WITH MEALS *No Administrations Recorded Fentanyl Citrate (PF) (SUBLIMAZE) 100 mcg/2 mL (50 mcg/mL) injection Start Date:12/30/11, End Date:-, Frequency:- *No Administrations Recorded Fentanyl Citrate (PF) (SUBLIMAZE) 100 mcg/2 mL (50 mcg/mL) injection Start Date:12/30/11, End Date:12/30/11, Frequency:- *No Administrations Recorded midazolam (VERSED) 1 mg/mL injection Start Date:12/30/11, End Date:-, Frequency:- *No Administrations Recorded 0.9% sodium chloride latex free syringe Start Date:12/30/11, End Date:-, Frequency:- *No Administrations Recorded documented in this encounter Plan of Treatment Not on filedocumented as of this encounter Procedures Procedure Name Priority Date/Time Associated Comments Diagnosis ENDOSCOPY OBTAINED Routine 12/30/2011 10:22 AM Re sults for this ANATOMICAL PATH CDT procedure ar e in the results section. SURGICAL JEFF CARR Routine 12/30/2011 7:00 AM Re sults for this NICOLLET CDT procedure are i n the results section. documented in this encounter Results ENDOSCOPY OBTAINED ANATOMICAL PATH (12/30/2011 10:22 AM CDT) P athologist Signature Endo Tis See Path HP CONVERSION Specimen (Source) Anatomical Collection Method Collection Time Re ceived Time Location / / Volume Laterality 12/30/2011 10:22 AM CDT Henrique Palacios MD LAB_1 Performing Organization Address City/State/ZIP Code Phon e Number HP CONVERSION Pathology Report (12/30/2011 7:00 AM CDT) Patholo gist Method Time Signature Path: ?Final SURGICAL PATHOLOGY REP ORT HP CONVERSION Pathology #: [id number] ? Date Obtained: 12/30/2011 ?Date Received: 12/30/2011 DIAGNOSIS: Polyps designated cecum/rectum, biopsies- - Tubular adenoma fragments. ?ADOLFO ESPINOZA MD ? (electronic signatur e) ? 12/31/2011 ??13:5 8 CLINICAL NOTES: Follow up polyp ORGAN/TISSUE SITE: Cecum, rectum GROSS DESCRIPTION: The specimen is labeled cecum and consists of 4 barahona mucosal tissue fragments averaging 0.2 cm in greatest dimension. ??Entirel y submitted in cassette [id number]. ? WEYAL MICROSCOPIC DESCRIPTION: Microscopic examination performed. CPT Codes: ?91138 x 1 ? End of Report Specimen Anatomical Collection Method Collection Time Receive d Time (Source) Location / / Volume Laterality COLON STRUCTURE / 12/30/2011 7:00 AM 12/09 7:00 Unknown CDT AM CDT Henrique Palacios MD LAB_1 Performing Organization Address City/State/ZIP Code Phon e Number HP CONVERSION documented in this encounter Visit Diagnoses Not on filedocumented in this encounter
--- OUTSIDE RECORDS SUMMARY | 2022-03-19 02:54 | XMS_ITS | Encounter Summary ---
:1940 Author Organization [facility] Address [address] [place] [address] Care Team Providers Name Role Phone Unavailable Primary Care Provider Unavailable Encounter Details Date Type Department Care Team Description 10/25/2006 Office Visit [facility] [place] [address] [place] [address] [facility] [phone] [facility], [address] Social History Tobacco Use Types Packs/Day Years Used Date Smoking Tobacco: Never Assessed Sex Assigned at Date Recorded Not on file documented as of this encounter Plan of Treatment Not on filedocumented as of this encounter Visit Diagnoses Not on filedocumented in this encounter
--- OUTSIDE RECORDS SUMMARY | 2022-03-19 02:54 | XMS_ITS | Encounter Summary ---
:1940 Author Organization [facility] Address [address] [place] [address] Care Team Providers Name Role Phone Unavailable Primary Care Provider Unavailable Reason for Visit Reason Comments Other Encounter Details Date Type Department Care Team Description 08/30/2007 Telephone [facility], Message Other [address] [place], [place] [address] Social History Tobacco Use Types Packs/Day Years Used Date Smoking Tobacco: Never Assessed Sex Assigned at Date Recorded Not on file documented as of this encounter [facility], Message - 08/30/2007 1:49 PM CDT Phone Note filed by [employer] at 08/27/101906 Author: [employer] Service: (none) Author Type: (none) Filed: 08/27/101906 Note Time: 08/30/07 1349 Status: Signed 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 *ECODE~PNMSG Created on 30Aug2007 1:49pm by SALLY LONG On 30Aug2007 2:27pm JOSÉ MIGUEL WALTON wrote: message left for patient to call On 30Aug2007 3:35pm D[address] L[address] wrote: Left message on machine. 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
--- OUTSIDE RECORDS SUMMARY | 2022-03-19 02:54 | XMS_ITS | Encounter Summary ---
:1940 Author Organization [facility] Address [address] [place] [address] Care Team Providers Name Role Phone Unavailable Primary Care Provider Unavailable Reason for Visit Reason Comments Other Encounter Details Date Type Department Care Team Description 01/11/2008 Telephone [facility], Message Other [address] [place], [place] [address] Social History Tobacco Use Types Packs/Day Years Used Date Smoking Tobacco: Never Assessed Sex Assigned at Date Recorded Not on file documented as of this encounter [facility], Message - 01/11/2008 10:21 AM CDT Phone Note filed by [email or web address] at 08/28/10447 Author: [email or web address] Service: (none) Author Type: (none) Filed: 08/28/10447 Note Time: 01/11/08 1021 Status: Signed 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[email or web address] Medication Issue/Refill Caller Name/Relationship:Mo Primary Customer Solutions Representative:Tanisha Comment/Symptom:pt states he needs a refill Pharmacy Name & Phone #:[facility] [phone] [place] City:[place] Drug Name:testosterone Strength:1% Dose/Route/Freq:1 package every other day Taxi Driver:pt Best call back number:[phone] Is it OK to leave a confidential message on this voicemail?y Created on 11Jan2008 10:21am by AURA TOLLIVER On 12Jan2008 9:27am KATJA GRIFFITH wrote: Unable to refill per Medical Refill Protocol Comment:Last PCP appt was >13 months ago (10/2006), and it is not listed in the [facility]. Med Refill list. Note:see phone note from yesterday for same request to Dr Luu and was denied. Please advise/address.Thanks. On [id number] 9:40am SANDRA OSMAN Yonas wrote: GOYO CALL HIM. I REFILL FOR 1 MONTH. RX ON PRINTER. HE IS DUE FOR FOLLOW UP VISIT WITH ME. I WILL NOT FURTHER REFILL HIS MEDS UNLESS HE COMES IN. Acknowledged by SANDRA OSMAN on ep 9:40am On 12Jan2008 12:05pm GOYO OSMAN wrote: Pt called and left above message on voice mail, #[phone] given to call back if have question, Rx faxed to [facility]. Acknowledged by GOYO OSMAN on 12:05pm [employer] documented in this encounter Plan of Treatment Not on filedocumented as of this encounter Visit Diagnoses Not on filedocumented in this encounter
--- OUTSIDE RECORDS SUMMARY | 2022-03-19 02:54 | XMS_ITS | Encounter Summary ---
:1940 Author Organization [facility] Address [address] [place] [address] Care Team Providers Name Role Phone Unavailable Primary Care Provider Unavailable Reason for Visit Reason Comments Other Encounter Details Date Type Department Care Team Description 08/30/2007 Telephone [facility] [address], Message Other [address] 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 Comment:- lv-01/18/06 fv-none Pharmacy Seq #:- [phone] Pharmacy Name:- [facility] [phone] or City:- [address] Clinician Name:- Jus Drug Name/Strength:- Androgel 1% (50mg) Gel Pckt Sig: Dose/Route/Freq:- Apply one and one-half packets to skin daily Quantity & Last Fill:- #135 lf 08/02/06 Created on 30Aug2007 1:31pm by RUPESH HOOD R On 30Aug2007 1:58pm EMILEE CUMMINGS wrote: Note pt hasn't been seen since Jan 2006! On 30Aug2007 4:05pm Rashid ROBERSON wrote: OK to refill at 1 packet qd #30 only. Needs appt. Acknowledged by Rashid ROBERSON on 4:05pm On 30Aug2007 4:15pm EMILEE CUMMINGS wrote: Done. Appt reminder sent. 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
--- OUTSIDE RECORDS SUMMARY | 2022-03-19 02:54 | XMS_ITS | Encounter Summary ---
:1940 Author Organization [facility] Address [address] [place] [address] Care Team Providers Name Role Phone Unavailable Primary Care Provider Unavailable Encounter Details Date Type Department Care Team Description 01/07/2006 PN Conversion Only SCIENTOLOGY CONVERSION Rashid Luu MD [address] [place] [address] (Wo rk) Social History Tobacco Use Types Packs/Day Years Used Date Smoking Tobacco: Never Assessed Sex Assigned at Date Recorded Not on file documented as of this encounter Plan of Treatment Not on filedocumented as of this encounter Procedures Procedure Name Priority Date/Time Associated Comments Diagnosis TESTOSTERONE TOTAL Routine 01/07/2006 11:35 Resul ts for this ADULT MALES AM CDT procedure are i n the results section. documented in this encounter Results Testosterone, Total Adult Males (01/07/2006 11:35 AM CDT) Analysis Performed At Patho logist Time Signature Testosterone 390 225 - 825 HP CONVERSION Level ng/dL Specimen (Source) Anatomical Collection Method Collection Time Re ceived Time Location / / Volume Laterality 01/07/2006 11:35 AM CDT C Siena Luu MD LAB_1 Performing Organization Address City/State/ZIP Code Phon e Number HP CONVERSION documented in this encounter Visit Diagnoses Not on filedocumented in this encounter
--- OUTSIDE RECORDS SUMMARY | 2022-03-19 02:54 | XMS_ITS | Encounter Summary ---
:1940 Author Organization [facility] Address [address] [place] [address] Care Team Providers Name Role Phone Unavailable Primary Care Provider Unavailable Encounter Details Date Type Department Care Team Description 01/18/2006 Office Visit [facility] 3800 Rashid Luu MD Endocrinology [address] [facility] [address] [place] [address] [place], [place] [id number] [phone] Social History Tobacco Use Types Packs/Day Years Used Date Smoking Tobacco: Never Assessed Sex Assigned at Date Recorded Not on file documented as of this encounter Last Filed Vital Signs Vital Sign Reading Time Taken Comments Blood Pressure 140/80 01/18/2006 11:15 AM CDT Pulse 72 01/18/2006 11:15 AM CDT Temperature - - Respiratory Rate - - Oxygen Saturation - - Inhaled Oxygen Concentration - - Weight 98.9 kg (217 lb 15.9 oz) 01/18/2006 11:15 AM C: 98.9kg CDT Height 179.7 cm (5' 10.75) 01/18/2006 11:15 AM C: 179. 7cm CDT Body Mass Index 30.62 01/18/2006 11:15 AM CDT documented in this encounter Progress Notes Rashid Luu MD - 01/18/2006 12:01 AM CDT Progress Notes signed by Rashid Luu MD at 01/29/06 0275 Author: Rashid Luu MD Service: (none) Author Type: Physician Filed: 08/29/10 1400 Note Time: 01/18/06 0001 Status: Signed Palliative Care Physician: Rashid Luu MD (Physician) NAME: ALEXANDR SOTELO MR: [id number] ACCT: [id number] VISIT: [id number] DICTATING CLINICIAN: Bryn LUU MD JOB: [id number] LOC: 432 CLINIC PROGRESS NOTE DATE OF VISIT: 01/18/2006 SUBJECTIVE: This 65-year-old gentleman returns for followup of hypogonadism treated with testosterone for many years. Etiology is not clear. Prolactin level was normal. Gonadotropins were low normal. We ruled out hemochromatosis with normal iron levels. He had been getting intermittent testosterone injections. We switched him to AndroGel because the testosterone levels were too low on his every month regimen. He says he has not noted much difference in how he feels. On closer questioning, he is no longer having the cycling of libido and energy that he was getting with the testosterone shots. He still has the same sexual functioning problems and needs to use Viagra. Energy level is okay. In general, sexual functioning and libido are okay. He has mid sleep insomnia. He does not have hot flashes or night sweats. He is not smoking cigarettes. The patient has been using 1 packet of AndroGel daily applied in the morning. He is not having any problems with the application. He is following the directions properly. We measured a serum glucose of 113 and A1c of 6.2, indicating that he probably has prediabetes. OBJECTIVE: VS: BP: 140/80, left arm, standard cuff. P: 72. Wt: 218. Overweight gentleman, no distress. No edema. ASSESSMENT: Hypogonadotropic hypogonadism, on testosterone replacement. Erectile dysfunction. Obesity. Prediabetes. PLAN: We advised him to lose weight and told him of the risks of evolving into full diabetes. He wants to try a higher dose of the AndroGel. We discussed risks and side effects of higher doses. He will go up to a packet and a half. Prescription provided. If he does not note a major improvement in how he is feeling on the higher dose, then he can go back to 1 packet daily. If he wants to go back to testosterone shots, he will give us a call. We can set up 200 mg every 2 to 3 weeks. We talked about self injection, but this is hard to do. He should continue to use Viagra p.r.n. In 6 to 8 weeks, check fasting glucose, hemoglobin, testosterone, PSA. Return to clinic once in 6 months. If things are stable, then this can be managed by his family doctor. CC: Son BeccaMD CD:[id number] C: 01/18/06 14:32 DOCUMENT: [id number] documented in this encounter Plan of Treatment Not on filedocumented as of this encounter Visit Diagnoses Not on filedocumented in this encounter
--- OUTSIDE RECORDS SUMMARY | 2022-03-19 02:54 | XMS_ITS | Encounter Summary ---
:1940 Author Organization [facility] Address [address] [place] [address] Care Team Providers Name Role Phone Unavailable Primary Care Provider Unavailable Encounter Details Date Type Department Care Team Description 12/22/2011 Notes/[facility] 6500 Henrique Palacios MD Endoscopy [address] [place] [address] [place] [address] [phone] Social History Tobacco Use Types Packs/Day Years Used Date Smoking Tobacco: Never Assessed Sex Assigned at Date Recorded Not on file documented as of this encounter Plan of Treatment Not on filedocumented as of this encounter Visit Diagnoses Not on filedocumented in this encounter
--- OUTSIDE RECORDS SUMMARY | 2022-03-19 02:54 | XMS_ITS | Encounter Summary ---
:1940 Author Organization [facility] Address [address] [place] [address] Care Team Providers Name Role Phone Unavailable Primary Care Provider Unavailable Reason for Visit Reason Comments Other Encounter Details Date Type Department Care Team Description 12/16/2006 Telephone [facility] 6500 Stacy Lofton RN Other Gastroenterology [address] [facility] [place], [place] [id number] Social History Tobacco Use Types Packs/Day Years Used Date Smoking Tobacco: Never Assessed Sex Assigned at Date Recorded Not on file documented as of this encounter Progress Notes Stacy Lofton RN - 12/16/2006 9:57 AM CDT Phone Note filed by Stacy Lofton RN at 08/27/10144 Author: Stacy Lofton RN Service: (none) Author Type: Registered Nurse Filed: 08/27/10144 Note Time: 12/16/06956 Status: Signed Script Worker: Stacy Lofton RN (Registered Nurse) PPA completed/instructions reviewed for colonoscopy Created on 16Dec2006 9:57am by STACY LOFTON CTION FURNACE OPERATOR documented in this encounter Plan of Treatment Not on filedocumented as of this encounter Visit Diagnoses Not on filedocumented in this encounter
--- OUTSIDE RECORDS SUMMARY | 2022-03-19 02:55 | XMS_ITS | Encounter Summary ---
:1940 Author Organization [facility] Address [address] [place] [address] Care Team Providers Name Role Phone Unavailable Primary Care Provider Unavailable Encounter Details Date Type Department Care Team Description 08/03/2005 Office Visit [facility] Sandra Osman MD [address] [address] [place] [address] [place], [place] [address] [phone] Social History Tobacco Use Types Packs/Day Years Used Date Smoking Tobacco: Never Assessed Sex Assigned at Date Recorded Not on file documented as of this encounter Progress Notes Sandra Osman MD - 08/03/2005 12:01 AM CST H&P signed by Sandra Osman MD at 08/23/05 2115 Author: Sandra Osman MD Service: (none) Author Type: Physician Filed: 08/29/10 1051 Note Time: 08/03/05 0001 Status: Signed Co Pilot: Sandra Osman MD (Physician) NAME: ALEXANDR SOTELO MR: [id number] ACCT: [id number] VISIT: [id number] DICTATING CLINICIAN: SANDRA OSMAN MD JOB: [id number] CLINIC PHYSICAL DATE OF VISIT: 08/03/2005 SUBJECTIVE: : 1940. This patient is here for complete physical examination; in addition, several issues. PAST MEDICAL HISTORY: Hypertension, glaucoma, glucose intolerance, primary hypogonadism, colonic polyp resection from 06/2003. The pathology did reveal adenoma. He will need repeat colonoscopy in 2008. Patient previously smoked, quit in 1999. Did smoke for 30 years at one pack of cigarettes per day. HISTORY OF PRESENT ILLNESS: He had questions regarding the testosterone injections. He is mainly receiving it for erectile dysfunction. He questions possible side effects. As I review his medical records, it was given to him for testicular failure. He has never been seen by endocrinology. He has been receiving it for the last 5 to 6 years. Second concern is HIV testing. The last time this was done was in 2002, it was negative. This patient does have sex with men. He would like recommendations for itching all over his body, but mostly in his rectum. REVIEW OF SYSTEMS: The complete review of systems, besides what I mentioned in the history of present illness, was negative. ADR/ALLERGIES: NONE. MEDICATIONS: Norvasc 2.5 mg. He takes calcium supplements, takes vitamin C, flax seed oil, multivitamins, Xalatan eye drops, Viagra as needed. He receives Depo Testosterone 200 mg sub cu monthly. He takes one aspirin a day. 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 His smoking history, as I mentioned. Patient reports drinking minimal alcohol. FAMILY HISTORY: Dad with diabetes mellitus, brother with hypertension, mom with hypothyroidism. HEALTHCARE MAINTENANCE: Colonoscopy as above. Tetanus shot in 2001. Patient never had Pneumovax. OBJECTIVE: VS: BP: 142/84. He does get his blood pressure checked when he comes here monthly for his testosterone injections. I took a look at these and they look to be within normal limits. P: 80. Ht: 5 ft. 10 in. Wt: 215 lb. He is pleasant, looks a little anxious. No acute distress. No suspicious skin lesions. No lymphadenopathy. Normocephalic, atraumatic. Conjunctivae and sclerae not injected. Pupils are equal and reactive. Nasal septum midline. TMs and posterior pharynx are within normal limits. NECK: Supple. No thyromegaly. LUNGS: Clear. CHEST WALL: Nontender to palpation. HEART: Regular rhythm. No murmur, no extra sounds, no JVD, no edema. He has good peripheral pulses and no carotid bruit. ABDOMEN: Soft, nontender. No mass, no organomegaly. No hernia. GENITALIA: Without suspicious lesions. No penile discharge. Both testes and epididymides normal in size and nontender to palpation. RECTAL: External hemorrhoid. Prostate feels normal. NEURO: He is alert and oriented. Cranial nerves II through XII grossly intact. Motor, normal bulk, tone and strength. Deep tendon reflexes symmetrical. Both toes downgoing. Jjpzpi-[id number] without dysmetria. Romberg stable, gait steady. ASSESSMENT: Complete physical examination. Primary hypogonadism. HIV testing. Dry skin. Hemorrhoid. PLAN: I gave him Pneumovax. We will check lipid profile, CBC, potassium, creatinine, ALT, urinalysis, TSH. This patient does have glucose intolerance, but does not check his blood sugar at home. We will do glucose and hemoglobin A1c. We will also do PSA. He is due for his testosterone injection and this was given to him. We will check HIV status. We discussed possible side effects with testosterone such as to bones, blood, liver, muscle, and tendons, etc. Given his concern, and the fact that he has never been seen by endocrinology, we will send him to that department for further evaluation. For the dry skin, I recommend to moisturize twice a day. The rectal itching is likely due to hemorrhoid. I recommend [id number] Preparation H and Cortaid. Return if symptoms persist or worsen. SHN:[id number] C: 08/04/05 12:05 DOCUMENT: [id number] documented in this encounter Plan of Treatment Not on filedocumented as of this encounter Visit Diagnoses Not on filedocumented in this encounter
--- OUTSIDE RECORDS SUMMARY | 2022-03-19 02:55 | XMS_ITS | Encounter Summary ---
:1940 Author Organization [facility] Address [address] [place] [address] Care Team Providers Name Role Phone Unavailable Primary Care Provider Unavailable Reason for Visit Reason Comments Other Encounter Details Date Type Department Care Team Description 09/04/2005 Telephone [facility] Sandra Osman MD Other Medicine [address] [facility] [address] [place] [address] [place], [place] [address] [phone] Social History Tobacco Use Types Packs/Day Years Used Date Smoking Tobacco: Never Assessed Sex Assigned at Date Recorded Not on file documented as of this encounter Progress Notes Mail'Inside, Message - 09/04/2005 3:19 PM CDT Phone Note filed by ICONIC at 08/26/10 032 Author: ICONIC Service: (none) Author Type: (none) Filed: 08/26/10 0325 Note Time: 09/04/051518 Status: Signed Promotions Assistant Sales Marketing: Message Mail'Inside Hi! please see on-line vital sign flowsheet for today's blood pressure readings. thanx! Created on 04Sep2005 3:19pm by KAREN DUNN Acknowledged by SANDRA OSMAN on 3:23pm CHECKER documented in this encounter Plan of Treatment Not on filedocumented as of this encounter Visit Diagnoses Not on filedocumented in this encounter
--- OUTSIDE RECORDS SUMMARY | 2022-03-19 02:55 | XMS_ITS | Encounter Summary ---
:1940 Author Organization [facility] Address [address] [place] [address] Care Team Providers Name Role Phone Unavailable Primary Care Provider Unavailable Reason for Visit Reason Comments Other Encounter Details Date Type Department Care Team Description 08/06/2005 Telephone [facility], Message Other [address] [place] [address] Social History Tobacco Use Types Packs/Day Years Used Date Smoking Tobacco: Never Assessed Sex Assigned at Date Recorded Not on file documented as of this encounter Progress Notes Center, Message - 08/06/2005 3:38 PM CST Phone Note filed by [employer] at 08/26/10219 Author: [employer] Service: (none) Author Type: (none) Filed: 08/26/10219 Note Time: 08/06/05 1538 Status: Signed Furrier Apprentice: [facility] Lab letter to patient per . Several abnormal labs. Please schedule an appointment to discuss. Letter mailed. Created on 06Aug2005 3:38pm by SALLY ROSE E CLERK CASHIER documented in this encounter Plan of Treatment Not on filedocumented as of this encounter Visit Diagnoses Not on filedocumented in this encounter
--- OUTSIDE RECORDS SUMMARY | 2022-03-19 02:55 | XMS_ITS | Encounter Summary ---
:1940 Author Organization [facility] Address [address] [place] [address] Care Team Providers Name Role Phone Unavailable Primary Care Provider Unavailable Encounter Details Date Type Department Care Team Description 05/06/2005 Nursing Visit [facility] Juan Antonio, Caleb martínez MD Medicine [address] [address] [facility] [address] [place] [address] [place], [place] [phone] (Wo rk) Social History Tobacco Use Types Packs/Day Years Used Date Smoking Tobacco: Never Assessed Sex Assigned at Date Recorded Not on file documented as of this encounter Plan of Treatment Not on filedocumented as of this encounter Visit Diagnoses Not on filedocumented in this encounter
--- OUTSIDE RECORDS SUMMARY | 2022-03-19 02:55 | XMS_ITS | Encounter Summary ---
:1940 Author Organization [facility] Address [address] [place] [address] Care Team Providers Name Role Phone Unavailable Primary Care Provider Unavailable Encounter Details Date Type Department Care Team Description 03/09/2005 Nursing Visit [facility] Juan Antonio, Caleb martínez MD Medicine [address] [address] [facility] [address] [place] [address] [place], [place] [phone] (Wo rk) Social History Tobacco Use Types Packs/Day Years Used Date Smoking Tobacco: Never Assessed Sex Assigned at Date Recorded Not on file documented as of this encounter Plan of Treatment Not on filedocumented as of this encounter Visit Diagnoses Not on filedocumented in this encounter
--- OUTSIDE RECORDS SUMMARY | 2022-03-19 02:55 | XMS_ITS | Encounter Summary ---
:1940 Author Organization [facility] Address [address] [place] [address] Care Team Providers Name Role Phone Unavailable Primary Care Provider Unavailable Reason for Visit Reason Comments Other Encounter Details Date Type Department Care Team Description 07/06/2005 Telephone [facility], Message Other [address] [place], [place] [address] Social History Tobacco Use Types Packs/Day Years Used Date Smoking Tobacco: Never Assessed Sex Assigned at Date Recorded Not on file documented as of this encounter Progress Notes Center, Message - 07/06/2005 12:51 PM CST Phone Note filed by [employer] at 08/26/10108 Author: [employer] Service: (none) Author Type: (none) Filed: 08/26/10108 Note Time: 07/06/05 1251 Status: Signed Planisher: Message 6Scan Hi! this is a patient of Dr Carolina whose order on 06/27/2005 for depotestosterone 200 mg IM every month x 1 year with diagnosis of 257.2. would you renew this order for 1 year again?? should this nurse tell pt that he needs to come in for a yearly well exam ?? also he did receive a depotestosterone injection this am --- would ok today's injection ?? thanx so much !! Created on 06Jul2005 12:51pm by KAREN DUNN On 06Jul2005 1:17pm YENI GORDON wrote: Please have him establish with a new provider for a primary. OK to renew for now. Acknowledged by YENI GORDON on 1:17pm Acknowledged by LUZMARIA BELLAMY on 1:18pm Acknowledged by KAREN DUNN on 3:27pm T MANAGEMENT LEAD documented in this encounter Plan of Treatment Not on filedocumented as of this encounter Visit Diagnoses Not on filedocumented in this encounter
--- OUTSIDE RECORDS SUMMARY | 2022-03-19 02:55 | XMS_ITS | Encounter Summary ---
:1940 Author Organization [facility] Address [address] [place] [address] Care Team Providers Name Role Phone Unavailable Primary Care Provider Unavailable Reason for Visit Reason Comments Other Encounter Details Date Type Department Care Team Description 06/03/2005 Telephone [facility] Jose Antonio Rodgers MBBS Other Medicine [address] [place] [address] [place] [address] [phone] Social History Tobacco Use Types Packs/Day Years Used Date Smoking Tobacco: Never Assessed Sex Assigned at Date Recorded Not on file documented as of this encounter Progress Notes [place], Message - 06/03/2005 12:11 PM CST Phone Note filed by [employer] at 08/26/108 Author: [employer] Service: (none) Author Type: (none) Filed: 08/26/108 Note Time: 06/03/051210 Status: Signed Receiving Team Member: Message PENRITH Hi! please see on-line vital sign flowsheet for today's blood pressure reading.Thanx! Created on 03Jun2005 12:11pm by KAREN DUNN Acknowledged by JOSE ANTONIO RODGERS on 1:11pm SUPPORT CONSULTANT documented in this encounter Plan of Treatment Not on filedocumented as of this encounter Visit Diagnoses Not on filedocumented in this encounter
--- OUTSIDE RECORDS SUMMARY | 2022-03-19 02:55 | XMS_ITS | Encounter Summary ---
:1940 Author Organization [facility] Address [address] [place] [address] Care Team Providers Name Role Phone Unavailable Primary Care Provider Unavailable Encounter Details Date Type Department Care Team Description 09/22/2005 Office Visit [facility] 3800 Rashid Luu MD Endocrinology [address] [facility] [address] [place] [address] [place], [place] [address] [phone] Social History Tobacco Use Types Packs/Day Years Used Date Smoking Tobacco: Never Assessed Sex Assigned at Date Recorded Not on file documented as of this encounter Last Filed Vital Signs Vital Sign Reading Time Taken Comments Blood Pressure 142/88 09/22/2005 3:24 PM CDT Pulse 80 09/22/2005 3:24 PM CDT Temperature - - Respiratory Rate - - Oxygen Saturation - - Inhaled Oxygen Concentration - - Weight 97.3 kg (214 lb 6.4 oz) 09/22/2005 3:24 PM C: 97 .3kg CDT Height 179.7 cm (5' 10.75) 09/22/2005 3:24 PM C: 179.7 cm CDT Body Mass Index 30.12 09/22/2005 3:24 PM CDT documented in this encounter Progress Notes Rashid Luu MD - 09/22/2005 12:01 AM CDT Progress Notes signed by Rashid Luu MD at 09/28/052051 Author: Rashid Luu MD Service: (none) Author Type: Physician Filed: 08/29/10 1154 Note Time: 09/22/05 0001 Status: Signed Medical Lab Technologist: Rashid Luu MD (Physician) NAME: ALEXANDR SOTELO MR: [id number] ACCT: [id number] VISIT: [id number] DICTATING CLINICIAN: Bryn LUU MD JOB: [id number] CLINIC PROGRESS NOTE DATE OF VISIT: 09/22/2005 SUBJECTIVE: This 65-year-old gentleman is being seen at the request of Son Jacqui for endocrine consultation regarding hypogonadism. The patient says he has been on testosterone for many years. He is not exactly sure when it was started. He has been getting a shot of 200 mg every 4 weeks. Last shot was 16 days ago. We went back through the old records, which date back at least to 1994. It sounds like around that time he was started on testosterone replacement because of a low testosterone level and erectile dysfunction. Apparently sexual functioning got better with the injections. There are no appropriate labs available at that time. We have a testosterone from 09/2000 that was on the low side at 184. However, this was drawn at some point during the testosterone therapy. More recent labs show hemoglobin levels have been borderline high. PSA was normal at 1.1 and TSH normal at 0.97. He said sexual functioning is okay with the help of Viagra. He uses 50 mg. No breast swelling or tenderness. No headaches. No vision problems. He denies ever having had a pituitary scan. He has had no testicular injuries or infections. Energy level is okay. He does not notice any cycling of energy, libido, or erectile functioning. PAST MEDICAL HISTORY: High blood pressure, prolonged polyps, prediabetes with a fasting glucose of 113 and a hemoglobin A1c of 6.3%. MEDICATIONS: Flax seed, vitamin C, calcium, Viagra, Norvasc, multivitamin, aspirin, testosterone, eye drops for glaucoma. Medications reviewed and updated in [facility]. REVIEW OF SYSTEMS: He has glaucoma. He has trouble hemorrhoids. They itch a lot. He has some eczema on the lower legs. The remainder of the complete review of systems is negative. FAMILY HISTORY: Mother questionably had a high iron level. Father and 2 brothers have type 2 diabetes. No thyroid problems in the family. SOCIAL HISTORY: . Three children. 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 He stopped smoking 7 to 8 years ago. He drinks once or twice a week. OBJECTIVE: VS: BP: 142/88, left arm, standard cuff. P: 80. Ht: 70.75 in. Wt: 244. Obese gentleman. No lid lag or exothalamus. Extraocular movements are intact. Pupillary responses are normal. Visual de los santos are intact to confrontation. Inspection of lips, teeth, and gums are normal. Inspection of the oropharynx is normal. The thyroid is not enlarged. No nodules or adenopathy. LUNGS: Clear. Breathing is unlabored. CARDIAC: Regular. No murmurs or gallops. Carotid upstrokes are strong without bruits. BREASTS: Have no gynecomastia. ABDOMEN: Obese, soft. No hepatosplenomegaly, masses, or tenderness. There is no luevano faeces, bruises, buffalo bump, violaceous striae, edema, or other cushingoid features. There is a full shaved martinez with a mustache present. Genital exam shows normal adult pubic hair pattern. Normal adult circumcised penis. Testes are at the lower range of normal in terms of size and slightly softer than usual. There is no edema. No tremor. DTRs are symmetric. Normal relaxation phase. ASSESSMENT: Hypogonadism, possibly primary. Obesity. Prediabetes. High blood pressure. Ex-cigarette smoker. PLAN: Measured serum testosterone today which is about 16 days since his last testosterone shot. Also measured prolactin and iron studies to rule out hemochromatosis and hemoglobin level. Prior to his next shot, which will be in a couple of weeks, he will get another testosterone, along with LH, FSH, prolactin. We talked about other means of testosterone replacement. He would like to try the gel. We discussed the proper administration of AndroGel, risks and benefits. We discussed concerns about prostate cancer. His PSA level was normal and he had a normal prostate exam in July of this year. Further workup might include a pituitary scan, if prolactin high or hypopit labs. Since we will be changing his testosterone regimen, then would like to see him back in a few months with testosterone level to make sure that it is working okay. CC: SANDRA Yonas MD JACQUI CD:[id number] C: 09/23/05 12:07 DOCUMENT: [id number] 09/28/05: Labs reviewed. FSH and LH missed. Recheck this labs and T before next shot on 10/02. OK to switch to Androgel. RTC 2 months with T level before appt. Lab letter sent with Rx and lab slip. JALEN Luu MD PhD documented in this encounter Plan of Treatment Not on filedocumented as of this encounter Visit Diagnoses Not on filedocumented in this encounter
--- OUTSIDE RECORDS SUMMARY | 2022-03-19 02:55 | XMS_ITS | Encounter Summary ---
:1940 Author Organization [facility] Address [address] [place] [address] Care Team Providers Name Role Phone Unavailable Primary Care Provider Unavailable Encounter Details Date Type Department Care Team Description 04/03/2005 Nursing Visit [facility] Kindra Abdi MD [id number] [place] [address] [phone] Social History Tobacco Use Types Packs/Day Years Used Date Smoking Tobacco: Never Assessed Sex Assigned at Date Recorded Not on file documented as of this encounter Last Filed Vital Signs Vital Sign Reading Time Taken Comments Blood Pressure 126/78 04/03/2005 11:23 AM 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
--- OUTSIDE RECORDS SUMMARY | 2022-03-19 02:55 | XMS_ITS | Encounter Summary ---
:1940 Author Organization [facility] Address [address] [place] [address] Care Team Providers Name Role Phone Unavailable Primary Care Provider Unavailable Reason for Visit Reason Comments Other Encounter Details Date Type Department Care Team Description 08/10/2005 Telephone [facility], Message Other [address] [place], [place] [address] Social History Tobacco Use Types Packs/Day Years Used Date Smoking Tobacco: Never Assessed Sex Assigned at Date Recorded Not on file documented as of this encounter Progress Notes Genny Smith - 08/10/2005 8:37 AM CDT Phone Note filed by Genny Smith RN at 08/26/10222 Author: Genny Smith RN Service: (none) Author Type: (none) Filed: 08/26/10222 Note Time: 08/10/05836 Status: Signed Hotel Office Manager: Imr Conversion MESSAGE TO CARE TEAM NAME OF CALLER:Mo Thuy NAME OF CLINICIAN: MESSAGE:Pt received lab letter at home from blood work done August 03. He says that you wrote on the note that liver was higher and need to come in to talk with you about it. ALT was 65, he is wondering if he really needs to make appt at this time. PHARMACY NAME: PHARMACY PHONE #: CALL BACK PHONE #:[phone],h BEST TIME TO CALL BACK: Is it OK to leave detailed message on voicemail?y Created on 10Aug2005 8:37am by GENNY SMITH On 10Aug2005 8:45am SANDRA OSMAN wrote: I REVIEWED HIS LABS, THE ALT IS STILL IN NORMAL RANGE, HOWEVER AT UPPER NORMAL LIMIT. HB WAS ELEVATED BUT LIKELY DUE TO FASTING. THE REASON HE NEEDS TO COME IN IS HIS ELEVATED BS AND A1C. I AM CONCERN THAT HE COULD BE DIABETIC OR BECOMES DIABETIC SOON. Acknowledged by SANDRA OSMAN on 8:45am On 10Aug2005 9:24am SALLY ROSE wrote: Patient notified and the need to be seen. Acknowledged by SALLY ROSE on 9:24am TECHNICIAN documented in this encounter Plan of Treatment Not on filedocumented as of this encounter Visit Diagnoses Not on filedocumented in this encounter
--- OUTSIDE RECORDS SUMMARY | 2022-03-19 02:55 | XMS_ITS | Encounter Summary ---
:1940 Author Organization [facility] Address [address] [place] [address] Care Team Providers Name Role Phone Unavailable Primary Care Provider Unavailable Encounter Details Date Type Department Care Team Description 10/02/2005 Nursing Visit [facility] Juan Antonio, Caleb martínez MD Medicine [address] [address] [facility] [address] [place] [address] [place], [place] [phone] [id number] (Wo rk) Social History Tobacco Use Types Packs/Day Years Used Date Smoking Tobacco: Never Assessed Sex Assigned at Date Recorded Not on file documented as of this encounter Plan of Treatment Not on filedocumented as of this encounter Visit Diagnoses Not on filedocumented in this encounter
--- OUTSIDE RECORDS SUMMARY | 2022-03-19 02:55 | XMS_ITS | Encounter Summary ---
:1940 Author Organization [facility] Address [address] [place] [address] Care Team Providers Name Role Phone Unavailable Primary Care Provider Unavailable Encounter Details Date Type Department Care Team Description 09/22/2005 PN Conversion Only JAIN CONVERSION Rashid Luu MD [address] [place] [address] (Wo rk) Social History Tobacco Use Types Packs/Day Years Used Date Smoking Tobacco: Never Assessed Sex Assigned at Date Recorded Not on file documented as of this encounter Plan of Treatment Not on filedocumented as of this encounter Procedures Procedure Name Priority Date/Time Associated Comments Diagnosis IRON BINDING CAPACITY Routine 09/22/2005 2:27 PM Results for this (INCL IRON) CDT procedure are i n the results section. TESTOSTERONE TOTAL Routine 09/22/2005 2:27 PM Res ults for this ADULT MALES CDT procedure are i n the results section. HEMOGLOBIN, BLOOD Routine 09/22/2005 2:27 PM Resu lts for this CDT procedure are i n the results section. FREE T4 Routine 09/22/2005 2:27 PM Results f or this CDT procedure are i n the results section. PROLACTIN Routine 09/22/2005 2:27 PM Results f or this CDT procedure are i n the results section. ALT (SGPT) Routine 09/22/2005 2:27 PM Results f or this CDT procedure are i n the results section. documented in this encounter Results ALT (SGPT) (09/22/2005 2:27 PM CDT) [facility] gist Method Time Signature Alanine 40 0 - 65 HP CONVERSION Aminotransferase U/L Specimen (Source) Anatomical Collection Method Collection Time Re ceived Time Location / / Volume Laterality 09/22/2005 2:27 PM CDT Rashid Luu MD LAB_1 Performing Organization Address City/State/ZIP Code Phon e Number HP CONVERSION Prolactin (09/22/2005 2:27 PM CDT) athologist Signature Prolactin 3.6 2.1 - 17.7 HP CONVERSION ng/mL Specimen (Source) Anatomical Collection Method Collection Time Re ceived Time Location / / Volume Laterality 09/22/2005 2:27 PM CDT C Siena Luu MD LAB_1 Performing Organization Address City/State/ZIP Code Phon e Number HP CONVERSION Testosterone, Total Adult Males (09/22/2005 2:27 PM CDT) [facility] Signature Testosterone 374 225 - 825 HP CONVERSION Level ng/dL Specimen (Source) Anatomical Collection Method Collection Time Re ceived Time Location / / Volume Laterality 09/22/2005 2:27 PM CDT Rashid Luu MD LAB_1 Performing Organization Address City/[facility]/ZIP Code Phon e Number HP CONVERSION Free T4 (09/22/2005 2:27 PM CDT) athologist Signature Thyroxine, Free 0.9 0.8 - 1.5 HP CONVERSION ng/dL Specimen (Source) Anatomical Collection Method Collection Time Re ceived Time Location / / Volume Laterality 09/22/2005 2:27 PM CDT Rashid Luu MD LAB_1 Performing Organization Address City/State/ZIP Code Phon e Number HP CONVERSION Hemoglobin, Blood (09/22/2005 2:27 PM CDT) athologist Signature Hemoglobin 17.5 13.4 - 17.5 HP CONVERSION gm/dL Specimen (Source) Anatomical Collection Method Collection Time Re ceived Time Location / / Volume Laterality 09/22/2005 2:27 PM CDT Rashid Luu MD LAB_1 Performing Organization Address City/State/ZIP Code Phon e Number HP CONVERSION Iron Binding Capacity (Incl Iron) (09/22/2005 2:27 PM CDT) athologist Signature Iron, Serum 94 50 - 165 HP CONVERSION ug/dL Iron Binding 423 250 - 450 HP CONVERSION Capacity ug/dL Iron Saturation 22 20 - 55 % HP CONVERSION Specimen (Source) Anatomical Collection Method Collection Time Re ceived Time Location / / Volume Laterality 09/22/2005 2:27 PM CDT C Siena Luu MD LAB_1 Performing Organization Address City/State/ZIP Code Phon e Number HP CONVERSION documented in this encounter Visit Diagnoses Not on filedocumented in this encounter
--- OUTSIDE RECORDS SUMMARY | 2022-03-19 02:55 | XMS_ITS | Encounter Summary ---
:1940 Author Organization [facility] Address [address] [place] [address] Care Team Providers Name Role Phone Unavailable Primary Care Provider Unavailable Encounter Details Date Type Department Care Team Description 06/02/2005 PN Conversion Only [place] [address] [address] [place] [address] Social History Tobacco Use Types Packs/Day Years Used Date Smoking Tobacco: Never Assessed Sex Assigned at Date Recorded Not on file documented as of this encounter Plan of Treatment Not on filedocumented as of this encounter Visit Diagnoses Not on filedocumented in this encounter
--- OUTSIDE RECORDS SUMMARY | 2022-03-19 02:55 | XMS_ITS | Encounter Summary ---
:1940 Author Organization [facility] Address [address] [place] [address] Care Team Providers Name Role Phone Unavailable Primary Care Provider Unavailable Encounter Details Date Type Department Care Team Description 08/03/2005 Nursing Visit [place] [facility] Yazan Garay MD [facility] [address] [facility] [address] [place] [address] [place] [address] [phone] Social History Tobacco Use Types Packs/Day Years Used Date Smoking Tobacco: Never Assessed Sex Assigned at Date Recorded Not on file documented as of this encounter Last Filed Vital Signs Vital Sign Reading Time Taken Comments Blood Pressure 142/84 08/03/2005 9:24 AM COOK RELIEF Pulse 80 08/03/2005 9:24 AM COOK RELIEF Temperature - - Respiratory Rate - - Oxygen Saturation - - Inhaled Oxygen Concentration - - Weight 97.5 kg (214 lb 15.9 oz) 08/03/2005 9:24 AM C: 9 7.5kg COOK RELIEF Height 177.8 cm (5' 10) 08/03/2005 9:24 AM C: 177.8cm COOK RELIEF Body Mass Index 30.85 08/03/2005 9:24 AM COOK RELIEF documented in this encounter Plan of Treatment Not on filedocumented as of this encounter Visit Diagnoses Not on filedocumented in this encounter
--- OUTSIDE RECORDS SUMMARY | 2022-03-19 02:55 | XMS_ITS | Encounter Summary ---
:1940 Author Organization [facility] Address [address] [place] [address] Care Team Providers Name Role Phone Unavailable Primary Care Provider Unavailable Encounter Details Date Type Department Care Team Description 09/04/2005 Nursing Visit [place] [facility] Yazan Garay MD [facility] [address] [facility] [address] [place] [address] [place] [address] [phone] Social History Tobacco Use Types Packs/Day Years Used Date Smoking Tobacco: Never Assessed Sex Assigned at Date Recorded Not on file documented as of this encounter Last Filed Vital Signs Vital Sign Reading Time Taken Comments Blood Pressure 114/76 09/04/2005 11:34 AM CDT Pulse 60 09/04/2005 11:31 AM CDT C: Radia l Regular Temperature - - Respiratory Rate - - Oxygen Saturation - - Inhaled Oxygen Concentration - - Weight - - Height - - Body Mass Index - - documented in this encounter Plan of Treatment Not on filedocumented as of this encounter Visit Diagnoses Not on filedocumented in this encounter
--- OUTSIDE RECORDS SUMMARY | 2022-03-19 02:55 | XMS_ITS | Encounter Summary ---
:1940 Author Organization [facility] Address [address] [place] [address] Care Team Providers Name Role Phone Unavailable Primary Care Provider Unavailable Encounter Details Date Type Department Care Team Description 06/03/2005 Nursing Visit [facility] Jose Antonio Carolina, JOYCE Medicine [address] [facility] [address] [place], [place] [address] [place] [address] [phone] Social History Tobacco Use Types Packs/Day Years Used Date Smoking Tobacco: Never Assessed Sex Assigned at Date Recorded Not on file documented as of this encounter Last Filed Vital Signs Vital Sign Reading Time Taken Comments Blood Pressure 140/80 06/03/2005 11:11 AM CERTIFIED SURGICAL 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
--- OUTSIDE RECORDS SUMMARY | 2022-03-19 02:55 | XMS_ITS | Encounter Summary ---
:1940 Author Organization [facility] Address [address] [place] [address] Care Team Providers Name Role Phone Unavailable Primary Care Provider Unavailable Encounter Details Date Type Department Care Team Description 07/06/2005 Nursing Visit [place] [facility] [place], Radha Ortiz MD [facility] [address] [place] [address] [phone] Social History Tobacco Use Types Packs/Day Years Used Date Smoking Tobacco: Never Assessed Sex Assigned at Date Recorded Not on file documented as of this encounter Last Filed Vital Signs Vital Sign Reading Time Taken Comments Blood Pressure 116/78 07/06/2005 11:00 AM RANGE OPERATOR Pulse 72 07/06/2005 10:58 AM RANGE OPERATOR C: Radia l Regular Temperature - - Respiratory Rate - - Oxygen Saturation - - Inhaled Oxygen Concentration - - Weight - - Height - - Body Mass Index - - documented in this encounter Plan of Treatment Not on filedocumented as of this encounter Visit Diagnoses Not on filedocumented in this encounter
--- OUTSIDE RECORDS SUMMARY | 2022-03-19 02:55 | XMS_ITS | Encounter Summary ---
:1940 Author Organization [facility] Address [address] [place] [address] Care Team Providers Name Role Phone Unavailable Primary Care Provider Unavailable Encounter Details Date Type Department Care Team Description 10/02/2005 PN Conversion Only [facility] CONVERSION Rashid Luu MD [address] [place] [address] (Wo rk) Social History Tobacco Use Types Packs/Day Years Used Date Smoking Tobacco: Never Assessed Sex Assigned at Date Recorded Not on file documented as of this encounter Plan of Treatment Not on filedocumented as of this encounter Procedures Procedure Name Priority Date/Time Associated Comments Diagnosis TESTOSTERONE TOTAL Routine 10/02/2005 9:59 AM Res ults for this ADULT MALES CDT procedure are i n the results section. LH Routine 10/02/2005 9:59 AM Results f or this CDT procedure are i n the results section. FSH Routine 10/02/2005 9:59 AM Results f or this CDT procedure are i n the results section. documented in this encounter Results LH (10/02/2005 9:59 AM CDT) P athologist Signature Lh 2 2 - 9 mIU/mL HP CONVERSION Comment: ?LH Value (mIU/mL) Female: ? Range Normally Ovulating Females -Follicular Phase ? 2-13 -Mid-Cycle Peak ? 9-76 -Luteal Phase ? 0.5-17 Postmenopausal Females ? 5-52 Specimen (Source) Anatomical Collection Method Collection Time Re ceived Time Location / / Volume Laterality 10/02/2005 9:59 AM CDT C Siena Luu MD LAB_1 Performing Organization Address [facility] Phon e Number HP CONVERSION FSH (10/02/2005 9:59 AM CDT) P athologist Signature Follicle 2.5 1.4 - 18.1 HP CONVERSION Stimulating mIU/mL Hormone Specimen (Source) Anatomical Collection Method Collection Time Re ceived Time Location / / Volume Laterality 10/02/2005 9:59 AM CDT Rashid Luu MD LAB_1 Performing Organization Address [facility] Phon e Number HP CONVERSION (ABNORMAL) Testosterone, Total Adult Males (10/02/2005 9:59 AM CDT) Patholo gist Method Time Signature Testosterone 209 (L) 225 - 825 HP CONVERSION Level ng/dL Specimen (Source) Anatomical Collection Method Collection Time Re ceived Time Location / / Volume Laterality 10/02/2005 9:59 AM CDT C Siena Luu MD LAB_1 Performing Organization Address [facility] Phon e Number HP CONVERSION documented in this encounter Visit Diagnoses Not on filedocumented in this encounter
--- OUTSIDE RECORDS SUMMARY | 2022-03-19 02:55 | XMS_ITS | Encounter Summary ---
:1940 [facility] Address [address] [place] [address] Care Team Providers Name Role Phone Unavailable Primary Care Provider Unavailable Encounter Details Date Type Department Care Team Description 08/24/2005 Office Visit [facility] Sandra Garay MD [facility] [address] [facility] [address] [place] [address] [place], [place] [address] [phone] Social History Tobacco Use Types Packs/Day Years Used Date Smoking Tobacco: Never Assessed Sex Assigned at Date Recorded Not on file documented as of this encounter Last Filed Vital Signs Vital Sign Reading Time Taken Comments Blood Pressure 142/82 08/24/2005 2:33 PM CDT Pulse 80 08/24/2005 2:33 PM CDT Temperature - - Respiratory Rate - - Oxygen Saturation - - Inhaled Oxygen Concentration - - Weight 97.1 kg (214 lb 2.8 oz) 08/24/2005 2:33 PM CDT C : 97.2kg Height - - Body Mass Index 30.73 08/03/2005 9:24 AM 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 This patient is here for followup visit. I did a complete physical examination on him 08/03/05. His CBC came back revealing slightly elevated hemoglobin at 17.7 and as noted this patient had fasted for labs. The WBC and platelets were within normal limits. His lipid profile came back as follows: Total cholesterol 161, triglycerides 68, HDL 34, LDL 113. Glucose elevated at 113, hemoglobin A1c 6.3. TSH, PSA normal. Urinalysis negative. HIV titer negative. This patient does have a history of glucose intolerance. He does not check his blood sugar at home. He denies polyuria, polydipsia, or any constitutional symptoms. He does have 2 brothers with type 2 diabetes mellitus. Currently he denies vision problem. He does have glaucoma and uses eye drops. He denies any problem with his feet. MEDICATIONS: The only medications he is taking at this time is Norvasc for his blood pressures. He also received testosterone injection on a monthly basis for primary hypogonadism. OBJECTIVE: VS: BP: 142/82. P: 80. Wt: 214 lb. He is not in acute distress. ASSESSMENT: Hypertension, question optimal control. Primary hypogonadism. Slightly elevated hemoglobin. Glucose intolerance. PLAN: I asked him to check his blood pressure on a regular basis. If they are consistently elevated we could consider adding lisinopril or hydrochlorothiazide. The hemoglobin was slightly elevated. As I reviewed his chart they have been upper normal to slightly elevated. I question if this is due to the testosterone injection. He does have an appointment to see our insurance sales assistant in near future. We spent the remainder of time discussing glucose intolerance. At this time I recommend obtain a Glucometer and check his blood sugar 3 to 5 times a week before breakfast or 2 hours after dinner. We discussed what values to look for. I recommend weight loss. I recommend watch diet. I recommend 30 to 40 minutes of walking most days of the week. This visit took 25 minutes, 15 minutes of time spent on counseling this patient regarding glucose intolerance. SHN:[id number] C: 08/25/05 10:56 DOCUMENT: [id number] documented in this encounter Plan of Treatment Not on filedocumented as of this encounter Visit Diagnoses Not on filedocumented in this encounter
--- OUTSIDE RECORDS SUMMARY | 2022-03-19 02:55 | XMS_ITS | Encounter Summary ---
:1940 Author Organization [facility] Address [address] [place] [address] Care Team Providers Name Role Phone Unavailable Primary Care Provider Unavailable Encounter Details Date Type Department Care Team Description 08/03/2005 PN Conversion [place] [address] [place], [place] [address] (Wo rk) Social History Tobacco Use Types Packs/Day Years Used Date Smoking Tobacco: Never Assessed Sex Assigned at Date Recorded Not on file documented as of this encounter Plan of Treatment Not on filedocumented as of this encounter Procedures Procedure Name Priority Date/Time Associated Comments Diagnosis HIV ANTIBODY Routine 08/03/2005 10:55 Results for this AM ENERGY AND SUSTAINABILITY MANAGER procedure are i n the results section. GLUCOSE Routine 08/03/2005 10:55 Results for this AM ENERGY AND SUSTAINABILITY MANAGER procedure are i n the results section. THYROID STIMULATING Routine 08/03/2005 10:55 Resu lts for this HORMONE AM ENERGY AND SUSTAINABILITY MANAGER procedure are i n the results section. LIPID PANEL AND Routine 08/03/2005 10:55 Results for this DIRECT LDL(IF NEEDED) AM ENERGY AND SUSTAINABILITY MANAGER proced ure are in the results section. CREATININE / GFR Routine 08/03/2005 10:55 Results for this AM ENERGY AND SUSTAINABILITY MANAGER procedure are i n the results section. COMPLETE BLOOD Routine 08/03/2005 10:55 Results f or this COUNT-W/DIFF AM ENERGY AND SUSTAINABILITY MANAGER procedure are i n the results section. PROSTATIC SPECIFIC Routine 08/03/2005 10:55 Resul ts for this ANTIGEN(SCREEN) AM ENERGY AND SUSTAINABILITY MANAGER procedure ar e in the results section. HGB A1C Routine 08/03/2005 10:55 Results for this AM ENERGY AND SUSTAINABILITY MANAGER procedure are i n the results section. ALT (SGPT) Routine 08/03/2005 10:55 Results for this AM ENERGY AND SUSTAINABILITY MANAGER procedure are i n the results section. POTASSIUM Routine 08/03/2005 10:55 Results for this AM ENERGY AND SUSTAINABILITY MANAGER procedure are i n the results section. URINALYSIS COMPLETE Routine 08/03/2005 10:47 Resu lts for this AM ENERGY AND SUSTAINABILITY MANAGER procedure are i n the results section. documented in this encounter Results (ABNORMAL) Complete Blood Count-W/Diff (08/03/2005 10:55 AM ENERGY AND SUSTAINABILITY MANAGER) [facility] Method Time Signature White Blood Cell 6.5 3.8 - 11.0 HP CONVERSIO N Count K/cmm Red Blood Cell 5.88 4.20 - HP CONVERSION Count 5.90 m/cmm Hemoglobin 17.7 (H) 13.4 - HP CONVERSION 17.5 gm/dL Hematocrit 51.5 (H) 39.0 - HP CONVERSION 51.0 % Mean Corpuscular 87.5 80.0 - HP CONVERSION Volume 100.0 fl Mean Corpuscular 30.1 27.0 - HP CONVERSION Hemoglobin 34.0 pg Mean Corpuscular 34.5 32.0 - HP CONVERSION Hemoglobin Conc 36.5 gm/dL Ramirez-Perez RDW 13.5 11.0 - HP CONVERSION 15.0 % Platelet Count 243 140 - 450 HP CONVERSION k/cmm Differential Auto-Dif No normal HP CONVERSION Verify range Neutrophils 5.0 2.0 - 7.5 HP CONVERSION Absolute Count K/cmm Neutrophil 77.2 (H) 50.0 - HP CONVERSION 75.0 % Lymphocyte % 13.4 (L) 20.0 - HP CONVERSION 40.0 % Monocyte 8.2 5.0 - 14.0 HP CONVERSION % Eosinophil 1.0 0.0 - 6.0 HP CONVERSION % Basophil % 0.2 0.0 - 2.0 HP CONVERSION % Specimen (Source) Anatomical Collection Method Collection Time Re ceived Time Location / / Volume Laterality 08/03/2005 10:55 AM ENERGY AND SUSTAINABILITY MANAGER Yazan Garay MD LAB_1 Performing Organization Address City/State/ZIP Code Phon e Number HP CONVERSION ALT (SGPT) (08/03/2005 10:55 AM ENERGY AND SUSTAINABILITY MANAGER) [facility] Method Time Signature Alanine 65 0 - 65 HP CONVERSION Aminotransferase U/L Specimen (Source) Anatomical Collection Method Collection Time Re ceived Time Location / / Volume Laterality 08/03/2005 10:55 AM ENERGY AND SUSTAINABILITY MANAGER Yazan Branham Tanisha LEE LAB_1 Performing Organization Address City/[facility] Code Phon e Number HP CONVERSION Creatinine / GFR (08/03/2005 10:55 AM ENERGY AND SUSTAINABILITY MANAGER) athologist Signature Creatinine 1.0 0.5 - 1.5 HP CONVERSION Serum mg/dL Specimen (Source) Anatomical Collection Method Collection Time Re ceived Time Location / / Volume Laterality 08/03/2005 10:55 AM ENERGY AND SUSTAINABILITY MANAGER Yazan Branham Tanisha LEE LAB_1 Performing Organization Address [facility] Phon e Number HP CONVERSION (ABNORMAL) Glucose (08/03/2005 10:55 AM ENERGY AND SUSTAINABILITY MANAGER) athologist Signature Lab Glucose 113 (H) 60 - 100 HP CONVERSION mg/dL Specimen (Source) Anatomical Collection Method Collection Time Re ceived Time Location / / Volume Laterality 08/03/2005 10:55 AM ENERGY AND SUSTAINABILITY MANAGER Yazan Branham Tanisha LEE LAB_1 Performing Organization Address [facility] Phon e Number HP CONVERSION Potassium (08/03/2005 10:55 AM ENERGY AND SUSTAINABILITY MANAGER) athologist Signature Potassium 4.6 3.5 - 5.2 HP CONVERSION meq/L Specimen (Source) Anatomical Collection Method Collection Time Re ceived Time Location / / Volume Laterality 08/03/2005 10:55 AM ENERGY AND SUSTAINABILITY MANAGER Yazan Branham Tanisha ELE LAB_1 Performing Organization Address [facility] Code Phon e Number HP CONVERSION (ABNORMAL) Lipid Panel and Direct LDL(If Needed) (08/03/2005 10:55 AM ENERGY AND SUSTAINABILITY MANAGER) [facility] gist Method Time Signature Cholesterol/HDL 4.7 No normal HP CONVERSION Ratio Screen range Cholesterol 161 <200 mg/dL HP CONVERSION HDL Cholesterol 34 (L) 40 - 60 HP CONVERSION mg/dL Triglycerides 68 0 - 149 HP CONVERSION mg/dL LDL Calculated 113 0 - 130 HP CONVERSION mg/dL Comment: Specimen (Source) Anatomical Collection Method Collection Time Re ceived Time Location / / Volume Laterality 08/03/2005 10:55 AM ENERGY AND SUSTAINABILITY MANAGER Yazan Branham Tanisha LEE LAB_1 Performing Organization Address City/[facility] Code Phon e Number HP CONVERSION (ABNORMAL) Hgb A1c (08/03/2005 10:55 AM ENERGY AND SUSTAINABILITY MANAGER) athologist Signature HGB A1C 6.3 (H) <6.0 % HP CONVERSION Specimen (Source) Anatomical Collection Method Collection Time Re ceived Time Location / / Volume Laterality 08/03/2005 10:55 AM ENERGY AND SUSTAINABILITY MANAGER Yazan Branham Tanisha LEE LAB_1 Performing Organization Address City/[facility]/ZIP Code Phon e Number HP CONVERSION Prostatic Specific Antigen (Screen) (08/03/2005 10:55 AM ENERGY AND SUSTAINABILITY MANAGER) athologist Signature Prostate 1.1 0.0 - 4.0 HP CONVERSION Specific ng/mL Antigen Specimen (Source) Anatomical Collection Method Collection Time Re ceived Time Location / / Volume Laterality 08/03/2005 10:55 AM ENERGY AND SUSTAINABILITY MANAGER Yazan Branham Tanisha LEE LAB_1 Performing Organization Address [facility] Code Phon e Number HP CONVERSION Thyroid Stimulating Hormone (08/03/2005 10:55 AM ENERGY AND SUSTAINABILITY MANAGER) athologist Signature Thyroid 0.97 0.20 - HP CONVERSION Stimulating 4.50 Hormone uIU/mL Specimen (Source) Anatomical Collection Method Collection Time Re ceived Time Location / / Volume Laterality 08/03/2005 10:55 AM ENERGY AND SUSTAINABILITY MANAGER Yazan Branham Tanisha LEE LAB_1 Performing Organization Address City/[facility]/ZIP Code Phon e Number HP CONVERSION HIV Antibody (08/03/2005 10:55 AM ENERGY AND SUSTAINABILITY MANAGER) athologist Signature HIV 1/HIV 2 Non Reac Non Reac HP CONVERSION Specimen (Source) Anatomical Collection Method Collection Time Re ceived Time Location / / Volume Laterality 08/03/2005 10:55 AM ENERGY AND SUSTAINABILITY MANAGER Yazan Branham Tanisha LEE LAB_1 Performing Organization Address City/State/ZIP Code Phon e Number HP CONVERSION (ABNORMAL) Urinalysis Complete (08/03/2005 10:47 AM ENERGY AND SUSTAINABILITY MANAGER) [facility] Method Time Signature Glucose, Negative Neg-Trac HP CONVERSION Qualitative U Protein Urine Negative Neg-Trac HP CONVERSION Ketones Negative Negative HP CONVERSION U BILI Negative Negative HP CONVERSION U Specific 1.015 1.005 - 25 HP CONVERSION Pearblossom Blood Urine Trace (A) Negative HP CONVERSION pH Urine 5.5 4.5 - 7.5 HP CONVERSION Urobilinogen Negative 0.2 - 1.0 HP CONVERSION Urine Nitrite Urine Negative Negative HP CONVERSION Leukocyte Negative Negative HP CONVERSION Esterase Urine White Blood 0-2/HPF 0 - 3 HP CONVERSION Cells Urine Red Blood Cells 0-2/HPF 0 - 2 HP CONVERSION Urine Bacteria Urine Occassnl None HP CONVERSION (A) Urine Mucus Moderate None HP CONVERSION Epithelial Cells Few Few /HPF HP CONVERSION Specimen (Source) Anatomical Collection Method Collection Time Re ceived Time Location / / Volume Laterality 08/03/2005 10:47 AM ENERGY AND SUSTAINABILITY MANAGER Yazan Yonas Tanisha LEE LAB_1 Performing Organization Address City/State/ZIP Code Phon e Number HP CONVERSION documented in this encounter Visit Diagnoses Not on filedocumented in this encounter
--- OUTSIDE RECORDS SUMMARY | 2022-03-19 02:56 | XMS_ITS | Encounter Summary ---
:1940 Author Organization [facility] Address [address] [place] [address] Care Team Providers Name Role Phone Unavailable Primary Care Provider Unavailable Encounter Details Date Type Department Care Team Description 11/27/2003 Nursing Visit [place] [facility] Jose Antonio Carolina, JORDANABS Medicine [address] [address] [place] [address] [phone] Social History Tobacco Use Types Packs/Day Years Used Date Smoking Tobacco: Never Assessed Sex Assigned at Date Recorded Not on file documented as of this encounter Plan of Treatment Not on filedocumented as of this encounter Visit Diagnoses Not on filedocumented in this encounter
--- OUTSIDE RECORDS SUMMARY | 2022-03-19 02:56 | XMS_ITS | Encounter Summary ---
:1940 Author [facility] Address [address] [place] [address] Care Team Providers Name Role Phone Unavailable Primary Care Provider Unavailable Encounter Details Date Type Department Care Team Description 04/25/2004 Office Visit [facility] [employer] [address] [place] [address] Social History Tobacco Use Types Packs/Day Years Used Date Smoking Tobacco: Never Assessed Sex Assigned at Date Recorded Not on file documented as of this encounter Plan of Treatment Not on filedocumented as of this encounter Visit Diagnoses Not on filedocumented in this encounter
--- OUTSIDE RECORDS SUMMARY | 2022-03-19 02:56 | XMS_ITS | Encounter Summary ---
:1940 Author Organization [facility] Address [address] [place] [address] Care Team Providers Name Role Phone Unavailable Primary Care Provider Unavailable Encounter Details Date Type Department Care Team Description 12/28/2003 Nursing Visit [place] [facility] Jose Antonio Carolina, JORDANABS Medicine [address] [address] [place] [address] [phone] Social History Tobacco Use Types Packs/Day Years Used Date Smoking Tobacco: Never Assessed Sex Assigned at Date Recorded Not on file documented as of this encounter Plan of Treatment Not on filedocumented as of this encounter Visit Diagnoses Not on filedocumented in this encounter
--- OUTSIDE RECORDS SUMMARY | 2022-03-19 02:56 | XMS_ITS | Encounter Summary ---
:1940 Author Organization [facility] Address [address] [place] [address] Care Team Providers Name Role Phone Unavailable Primary Care Provider Unavailable Encounter Details Date Type Department Care Team Description 04/23/2004 Nursing Visit [facility] [facility] Jose Antonio Carolina, JORDANABS Medicine [address] [address] [place] [address] [phone] Social History Tobacco Use Types Packs/Day Years Used Date Smoking Tobacco: Never Assessed Sex Assigned at Date Recorded Not on file documented as of this encounter Plan of Treatment Not on filedocumented as of this encounter Visit Diagnoses Not on filedocumented in this encounter
--- OUTSIDE RECORDS SUMMARY | 2022-03-19 02:56 | XMS_ITS | Encounter Summary ---
:1940 Author Organization [facility] Address [address] [place] [address] Care Team Providers Name Role Phone Unavailable Primary Care Provider Unavailable Reason for Visit Reason Comments Other Encounter Details Date Type Department Care Team Description 09/26/2004 Telephone [facility] Jose Antonio Rodgers MBBS Other Medicine [address] [address] [place], [place] [address] [phone] Social History Tobacco Use Types Packs/Day Years Used Date Smoking Tobacco: Never Assessed Sex Assigned at Date Recorded Not on file documented as of this encounter Progress Notes [employer], Message - 09/26/2004 1:47 PM CDT Phone Note filed by [employer] at 08/25/101823 Author: [employer] Service: (none) Author Type: (none) Filed: 08/25/101823 Note Time: 09/26/047 Status: Signed 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 Created on 26Sep2004 1:47pm by KAREN DUNN Acknowledged by JOSE ANTONIO RODGERS on 2:11pm E MACHINE OPERATOR documented in this encounter Plan of Treatment Not on filedocumented as of this encounter Visit Diagnoses Not on filedocumented in this encounter
--- OUTSIDE RECORDS SUMMARY | 2022-03-19 02:56 | XMS_ITS | Encounter Summary ---
:1940 Author Organization [facility] Address [address] [place] [address] Care Team Providers Name Role Phone Unavailable Primary Care Provider Unavailable Encounter Details Date Type Department Care Team Description 05/17/2003 PN Conversion Only [place] [address] [place] [address] Social History Tobacco Use Types Packs/Day Years Used Date Smoking Tobacco: Never Assessed Sex Assigned at Date Recorded Not on file documented as of this encounter Plan of Treatment Not on filedocumented as of this encounter Visit Diagnoses Not on filedocumented in this encounter
--- OUTSIDE RECORDS SUMMARY | 2022-03-19 02:56 | XMS_ITS | Encounter Summary ---
:1940 Author Organization [facility] Address [address] [place] [address] Care Team Providers Name Role Phone Unavailable Primary Care Provider Unavailable Encounter Details Date Type Department Care Team Description 11/27/2003 PN Conversion Only [place] [address] [address] [place] [address] Social History Tobacco Use Types Packs/Day Years Used Date Smoking Tobacco: Never Assessed Sex Assigned at Date Recorded Not on file documented as of this encounter Plan of Treatment Not on filedocumented as of this encounter Visit Diagnoses Not on filedocumented in this encounter
--- OUTSIDE RECORDS SUMMARY | 2022-03-19 02:56 | XMS_ITS | Encounter Summary ---
:1940 Author Organization [facility] Address [address] [place] [address] Care Team Providers Name Role Phone Unavailable Primary Care Provider Unavailable Encounter Details Date Type Department Care Team Description 08/29/2003 PN Conversion Only [place] [address] [address] [place] [address] Social History Tobacco Use Types Packs/Day Years Used Date Smoking Tobacco: Never Assessed Sex Assigned at Date Recorded Not on file documented as of this encounter Plan of Treatment Not on filedocumented as of this encounter Visit Diagnoses Not on filedocumented in this encounter
--- OUTSIDE RECORDS SUMMARY | 2022-03-19 02:56 | XMS_ITS | Encounter Summary ---
:1940 Author Organization [facility] Address [address] [place] [address] Care Team Providers Name Role Phone Unavailable Primary Care Provider Unavailable Encounter Details Date Type Department Care Team Description 01/29/2004 Nursing Visit [facility] Jose Antonio Carolina , JORDANABS Medicine [address] [address] [place] [address] [phone] Social History Tobacco Use Types Packs/Day Years Used Date Smoking Tobacco: Never Assessed Sex Assigned at Date Recorded Not on file documented as of this encounter Plan of Treatment Not on filedocumented as of this encounter Visit Diagnoses Not on filedocumented in this encounter
--- OUTSIDE RECORDS SUMMARY | 2022-03-19 02:56 | XMS_ITS | Encounter Summary ---
:1940 Author Organization [facility] Address [address] [place] [address] Care Team Providers Name Role Phone Unavailable Primary Care Provider Unavailable Encounter Details Date Type Department Care Team Description 01/02/2005 Nursing Visit [place] Jose Antonio Carolina, JOYCE Medicine [address] [facility] [address] [place] [address] [place] [address] [phone] Social History Tobacco Use Types Packs/Day Years Used Date Smoking Tobacco: Never Assessed Sex Assigned at Date Recorded Not on file documented as of this encounter Last Filed Vital Signs Vital Sign Reading Time Taken Comments Blood Pressure 128/76 01/02/2005 10:06 AM CDT Pulse 72 01/02/2005 10:06 AM CDT Temperature - - Respiratory Rate - - Oxygen Saturation - - Inhaled Oxygen Concentration - - Weight - - Height - - Body Mass Index - - documented in this encounter Plan of Treatment Not on filedocumented as of this encounter Visit Diagnoses Not on filedocumented in this encounter
--- OUTSIDE RECORDS SUMMARY | 2022-03-19 02:56 | XMS_ITS | Encounter Summary ---
:1940 Author Organization [facility] Address [address] [place] [address] Care Team Providers Name Role Phone Unavailable Primary Care Provider Unavailable Reason for Visit Reason Comments Other Encounter Details Date Type Department Care Team Description 01/02/2005 Telephone [place] [facility] Jose Antonio Rodgers MBBS Other Medicine [address] [place] [address] [place], [place] [address] [phone] Social History Tobacco Use Types Packs/Day Years Used Date Smoking Tobacco: Never Assessed Sex Assigned at Date Recorded Not on file documented as of this encounter Progress Notes Sarah Valenzuela - 01/02/2005 10:10 AM CDT Phone Note filed by Sarah Valenzuela LPN at 08/25/102009 Author: Sarah Valenzuela LPN Service: (none) Author Type: (none) Filed: 08/25/102009 Note Time: 01/02/05 1010 Status: Signed Vineyardist: Imr Conversion Please see vital sign viewer for Pt's Bp reading today. Created on 02Jan2005 10:10am by SARAH VALENZUELA Acknowledged by JOSE ANTONIO RODGERS on 12:07pm ITY MANAGEMENT NURSE documented in this encounter Plan of Treatment Not on filedocumented as of this encounter Visit Diagnoses Not on filedocumented in this encounter
--- OUTSIDE RECORDS SUMMARY | 2022-03-19 02:56 | XMS_ITS | Encounter Summary ---
:1940 Author Organization [facility] Address [address] [place] [address] Care Team Providers Name Role Phone Unavailable Primary Care Provider Unavailable Encounter Details Date Type Department Care Team Description 08/29/2003 PN Conversion Only [place] [address] [address] [place] [address] Social History Tobacco Use Types Packs/Day Years Used Date Smoking Tobacco: Never Assessed Sex Assigned at Date Recorded Not on file documented as of this encounter Plan of Treatment Not on filedocumented as of this encounter Visit Diagnoses Not on filedocumented in this encounter
--- OUTSIDE RECORDS SUMMARY | 2022-03-19 02:56 | XMS_ITS | Encounter Summary ---
:1940 Author Organization [facility] Address [address] [place] [address] Care Team Providers Name Role Phone Unavailable Primary Care Provider Unavailable Reason for Visit Reason Comments Other Encounter Details Date Type Department Care Team Description 02/27/2004 Telephone [place] [facility] Jose Antonio Rodgers MBBS Other Medicine [address] [address] [place], [place] [address] [phone] Social History Tobacco Use Types Packs/Day Years Used Date Smoking Tobacco: Never Assessed Sex Assigned at Date Recorded Not on file documented as of this encounter [employer] Notes [place], Message - 02/27/2004 9:52 AM CDT Phone Note filed by [email or web address] at 08/25/10 1046 Author: [email or web address] Service: (none) Author Type: (none) Filed: 08/25/10 3719 Note Time: 02/27/04951 Status: Signed 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 Created on 27Feb2004 9:52am by KAREN DUNN Acknowledged by JOSE ANTONIO RODGERS on 11:22am documented in this encounter Plan of Treatment Not on filedocumented as of this encounter Visit Diagnoses Not on filedocumented in this encounter
--- OUTSIDE RECORDS SUMMARY | 2022-03-19 02:56 | XMS_ITS | Encounter Summary ---
:1940 Author Organization [facility] Address [address] [place] [address] Care Team Providers Name Role Phone Unavailable Primary Care Provider Unavailable Reason for Visit Reason Comments Other Encounter Details Date Type Department Care Team Description 11/27/2003 Telephone [place] [facility] Jose Antonio Rodgers MBBS Other Medicine [address] [address] [place], [place] [address] [phone] Social History Tobacco Use Types Packs/Day Years Used Date Smoking Tobacco: Never Assessed Sex Assigned at Date Recorded Not on file documented as of this encounter Progress Notes [place], Message - 11/27/2003 4:17 PM CDT Phone Note filed by [employer] at 08/25/10 1325 Author: [employer] Service: (none) Author Type: (none) Filed: 08/25/10 1325 Note Time: 11/27/03 1617 Status: Signed 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 Created on 27Nov2003 4:17pm by KAREN DUNN Acknowledged by JOSE ANTONIO RODGERS on 8:07am documented in this encounter Plan of Treatment Not on filedocumented as of this encounter Visit Diagnoses Not on filedocumented in this encounter
--- OUTSIDE RECORDS SUMMARY | 2022-03-19 02:56 | XMS_ITS | Encounter Summary ---
:1940 Author Organization [facility] Address [address] [place] [address] Care Team Providers Name Role Phone Unavailable Primary Care Provider Unavailable Reason for Visit Reason Comments Other Encounter Details Date Type Department Care Team Description 01/29/2004 Telephone [facility] Jose Antonio Rodgers MBBS Other Medicine [address] [address] [place], [place] [address] [phone] Social History Tobacco Use Types Packs/Day Years Used Date Smoking Tobacco: Never Assessed Sex Assigned at Date Recorded Not on file documented as of this encounter Progress Notes [place], Message - 01/29/2004 1:45 PM CDT Phone Note filed by [employer] at 08/25/10 1420 Author: [employer] Service: (none) Author Type: (none) Filed: 08/25/10 1420 Note Time: 01/29/04 1345 Status: Signed 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 Created on 29Jan2004 1:45pm by KAREN DUNN Acknowledged by JOSE ANTONIO RODGERS on 2:33pm documented in this encounter Plan of Treatment Not on filedocumented as of this encounter Visit Diagnoses Not on filedocumented in this encounter
--- OUTSIDE RECORDS SUMMARY | 2022-03-19 02:56 | XMS_ITS | Encounter Summary ---
:1940 Author Organization [facility] Address [address] [place] [address] Care Team Providers Name Role Phone Unavailable Primary Care Provider Unavailable Encounter Details Date Type Department Care Team Description 10/31/2004 Nursing Visit [place] [facility] Jose Antonio Carolina, JORDANABS Medicine [address] [facility] [address] [place] [address] [place] [address] [phone] Social History Tobacco Use Types Packs/Day Years Used Date Smoking Tobacco: Never Assessed Sex Assigned at Date Recorded Not on file documented as of this encounter Last Filed Vital Signs Vital Sign Reading Time Taken Comments Blood Pressure 122/78 10/31/2004 11:30 AM CDT Pulse 60 10/31/2004 11:27 AM CDT C: Radia l Regular Temperature - - Respiratory Rate - - Oxygen Saturation - - Inhaled Oxygen Concentration - - Weight - - Height - - Body Mass Index - - documented in this encounter Plan of Treatment Not on filedocumented as of this encounter Visit Diagnoses Not on filedocumented in this encounter
--- OUTSIDE RECORDS SUMMARY | 2022-03-19 02:56 | XMS_ITS | Encounter Summary ---
:1940 Author Organization [facility] Address [address] [place] [address] Care Team Providers Name Role Phone Unavailable Primary Care Provider Unavailable Encounter Details Date Type Department Care Team Description 05/17/2003 PN Conversion Only [place] [facility] Jose Antonio Carolina, JOYCE [address] [employer] [address] [place] [address] [place] [address] (Wo rk) Social History Tobacco Use Types Packs/Day Years Used Date Smoking Tobacco: Never Assessed Sex Assigned at Date Recorded Not on file documented as of this encounter Plan of Treatment Not on filedocumented as of this encounter Procedures Procedure Name Priority Date/Time Associated Diagnosis Comme nts GLUCOSE Routine 05/17/2003 1:25 PM Results f or this PATENT DRAFTER procedure are i n the results section. LIPID PANEL AND Routine 05/17/2003 1:25 PM Result s for this DIRECT LDL(IF PATENT DRAFTER procedure are in NEEDED) the results section. COMPLETE BLOOD Routine 05/17/2003 1:25 PM Results for this COUNT-W/DIFF PATENT DRAFTER procedure are i n the results section. PROSTATIC SPECIFIC Routine 05/17/2003 1:25 PM Res ults for this ANTIGEN(SCREEN) PATENT DRAFTER procedure ar e in the results section. documented in this encounter Results (ABNORMAL) Complete Blood Count-W/Diff (05/17/2003 1:25 PM PATENT DRAFTER) [facility] gist Method Time Signature Platelet Count 287 140 - 450 HP CONVERSION k/cmm Differential Auto-Dif No normal HP CONVERSION Verify range Neutrophils 5.4 2.0 - 7.5 HP CONVERSION Absolute Count K/cmm Neutrophil 70.8 50.0 - HP CONVERSION 75.0 % Lymphocyte % 20.1 20.0 - HP CONVERSION 40.0 % Monocyte 7.5 5.0 - 14.0 HP CONVERSION % Eosinophil 1.3 0.0 - 6.0 HP CONVERSION % Basophil % 0.3 0.0 - 2.0 HP CONVERSION % White Blood Cell 7.6 3.8 - 11.0 HP CONVERSIO N Count K/cmm Red Blood Cell 6.21 (H) 4.20 - HP CONVERSION Count 5.90 m/cmm Hemoglobin 18.2 (H) 13.4 - HP CONVERSION 17.5 gm/dL Hematocrit 55.2 (H) 39.0 - HP CONVERSION 51.0 % Mean Corpuscular 89.0 80.0 - HP CONVERSION Volume 100.0 fl Mean Corpuscular 29.3 27.0 - HP CONVERSION Hemoglobin 34.0 pg Mean Corpuscular 32.9 32.0 - HP CONVERSION Hemoglobin Conc 36.5 gm/dL [place] RDW 12.5 11.0 - HP CONVERSION 15.0 % Specimen (Source) Anatomical Collection Method Collection Time Re ceived Time Location / / Volume Laterality 05/17/2003 1:25 PM PATENT DRAFTER Jose Antonio Carolina [facility] LAB_1 Performing Organization Address City/State/ZIP Code Phon e Number HP CONVERSION Glucose (05/17/2003 1:25 PM PATENT DRAFTER) P athologist Signature Length Of Fast 18.0 Hours HP CONVERSION Lab Glucose 95 60 - 109 HP CONVERSION mg/dL Specimen (Source) Anatomical Collection Method Collection Time Re ceived Time Location / / Volume Laterality 05/17/2003 1:25 PM PATENT DRAFTER Jose Antonio Carolina [place] LAB_1 Performing Organization Address City/State/ZIP Code Phon e Number HP CONVERSION (ABNORMAL) Lipid Panel and Direct LDL(If Needed) (05/17/2003 1:25 PM PATENT DRAFTER) Analysis Performed At Patho logist Time Signature Triglycerides 104 0 - 199 HP CONVERSION mg/dL LDL Calculated 131 (H) 66 - 129 HP CONVERSION mg/dL Comment: Length Of Fast 18.0 Hours HP CONVERSION Cholesterol/HDL Ratio Screen 4.8 No normal range HP CONVERSION Cholesterol 192 125 - 199 mg/dL HP CONVERSIO N HDL Cholesterol 40 40 - 60 mg/dL HP CONVERS ION Specimen (Source) Anatomical Collection Method Collection Time Re ceived Time Location / / Volume Laterality 05/17/2003 1:25 PM PATENT DRAFTER Jose Antonio COOK LAB_1 Performing Organization Address City/State/ZIP Code Phon e Number HP CONVERSION Prostatic Specific Antigen (Screen) (05/17/2003 1:25 PM PATENT DRAFTER) P athologist Signature Prostate 1.1 0.0 - 4.0 HP CONVERSION Specific ng/mL Antigen Specimen (Source) Anatomical Collection Method Collection Time Re ceived Time Location / / Volume Laterality 05/17/2003 1:25 PM PATENT DRAFTER Jose Antonio COOK LAB_1 Performing Organization Address City/State/ZIP Code Phon e Number HP CONVERSION documented in this encounter Visit Diagnoses Not on filedocumented in this encounter
--- OUTSIDE RECORDS SUMMARY | 2022-03-19 02:56 | XMS_ITS | Encounter Summary ---
:1940 Author Organization [facility] Address [address] [place] [address] Care Team Providers Name Role Phone Unavailable Primary Care Provider Unavailable Encounter Details Date Type Department Care Team Description 06/27/2003 Hospital Encounter [facility] [address] Henrique Barrientos MD Endoscopy [address] [place] [address] [id number] [phone] Social History Tobacco Use Types Packs/Day Years Used Date Smoking Tobacco: Never Assessed Sex Assigned at Date Recorded Not on file documented as of this encounter Procedure Notes Henrique Palacios MD - 06/27/2003 12:01 AM CST Procedures signed by Henrique Palacios MD at 06/27/03 7322 Author: Henrique Palacios MD Service: (none) Author Type: Physician Filed: 08/28/10 1840 Note Time: 06/27/03 1510 Status: Signed Germination Worker: Henrique Palacios MD (Physician) Patient Name: Mo Daley Gender: M Exam Date: 06/27/2003 03:10 PM Procedure: Colonoscopy Indications: Screening for malignant neoplasm in the colon, FH of Colon Cancer - 1st degree relative Providers: Henrique Palacios MD Referring MD: Jose Antonio Carolina MD Medicines: Fentanyl 100 mcg IV, Midazolam 2 mg IV Complications: No immediate complications Procedure: The procedure, indications, benefits, risks and alternatives were explained to the patient. Specifically discussed were potential complications including bleeding, perforation, infection, adverse medication reaction, over sedation, and missed diagnosis. Throughout the procedure the patient's blood pressure, pulse, and oxygen saturation were monitored continuously. The colonoscope([id number]-3) was introduced through the anus and advanced to the the cecum, identified by appendix & IC valve. The colonoscopy was accomplished without difficulty. The patient tolerated the procedure well. The quality of the prep was good. Findings: A few sessile polyps with no bleeding were found in the rectum, in the sigmoid colon and in the cecum. The polyps were 2 to 5 mm in size. Biopsies were taken with a cold forceps for histology. Polypectomy was performed with a hot snare. Resection and retrieval were complete. Fulguration to ablate the lesion by snare was successful. 1 polyp cecum, 2 polyps ascending colon, 1 polyp 35 cm, 1 polyp 15 cm, 2 diminuitive lesions rectum (fulgurated) Impression: - A few 2 to 5 mm polyps in the rectum, in the sigmoid colon and in the cecum. Resected and retrieved. Recommendation: - Await pathology results. - If the pathology report reveals adenomatous tissue, then repeat the colonoscopy for surveillance in 3 - 5 years. - There may be a risk of bleeding from the site of your polypectomy. To minimize this risk, please do not take aspirin or nsaids for two weeks. CPT4 Code(s): 15241, Colonoscopy, flexible, proximal to splenic flexure; with removal of tumor(s), polyp(s), or other lesion(s) by snare technique 31773, Colonoscopy, flexible, proximal to splenic flexure; with ablation of tumor(s), polyp(s), or other lesion(s) not amenable to removal by hot biopsy forceps, bipolar cautery or snare technique 84113, 51, Colonoscopy, flexible, proximal to splenic flexure; with biopsy, single or multiple ICD9 Code(s): Henrique Palacios MD Signed Date: 06/27/2003 3:42:21 PM This document has been electronically signed. Note generated on 06/27/2003 3:08:02 PM CC letter to: NG II INSTRUCTOR documented in this encounter Plan of Treatment Not on filedocumented as of this encounter Procedures Procedure Name Priority Date/Time Associated Diagnosis Comme nts SURGICAL PATH, JEFF Routine 06/27/2003 4:34 PM Re sults for this [facility] FLYING II INSTRUCTOR procedure are i n the results section. documented in this encounter Results Pathology Report (06/27/2003 4:34 PM FLYING II INSTRUCTOR) [facility] gist Method Time Signature Surgical SEE TEXT No normal HP CONVERSION Pathology range Comment: Patient: ASHLEIGH, MO Leo ?S URGICAL PATHOLOGY REPORT Pathology # ??[id number] ?Date Obtained: [id number] ? Date Received: [id number] DIAGNOSIS: A) ??Cecum, biopsies: ?1. Adenomatous polyp (tubular edwin jason), 1 fragment. ?2. Hyperplastic (metaplastic) poly p, 3 fragments. B) ??Colon at 35 cm, biopsy: ?- ??Adenomatous polyp (tubular suhail noma). C) ??Colon at 15 cm, biopsy: ?- ??Hyperplastic (metaplastic) arabella yp. ?Elfego Olson M.D. ?(electronic signature) RPW/RPW/cjc Date of Report: 06/28/03 Pathology # ??[id number] ?Date Obtained: [id number] ? Date Received: [id number] ORGAN/TISSUE SITE: ?Cecum/Colon at 35 cm/Colon at 15 c m GROSS DESCRIPTION: A) ??Received in formalin are 4 irregula r portions of bar[place]ona-pink soft tissue ?ranging from 0.2 to 0.4 cm, which are submitted in toto in 1 cassette. B) ??Received in formalin is a 0.4 x 0.3 x 0.3 cm irregular portion of bar[place]ona-pink ?tissue, which is submitted in toto in 1 cassette. C) ??Received in formalin is a 0.4 x 0.3 x 0.3 cm irregular portion of bar[place]ona-pink ?tissue, which is submitted in toto in 1 cassette. SLS/blm MICROSCOPIC DESCRIPTION: A-C)The microscopic examination substant iates the diagnoses cited. Specimen (Source) Anatomical Collection Method Collection Time Re ceived Time Location / / Volume Laterality 06/27/2003 4:34 PM FLYING II INSTRUCTOR Henrique Palacios MD LAB_1 Performing Organization Address City/State/ZIP Code Phon e Number HP CONVERSION documented in this encounter Visit Diagnoses Not on filedocumented in this encounter
--- OUTSIDE RECORDS SUMMARY | 2022-03-19 02:56 | XMS_ITS | Encounter Summary ---
:1940 Author Organization [facility] Address [address] [place] [address] Care Team Providers Name Role Phone Unavailable Primary Care Provider Unavailable Reason for Visit Reason Comments Other Encounter Details Date Type Department Care Team Description 01/28/2005 Telephone [place] [facility] Jose Antonio Rodgers MBBS Other Medicine [address] [address] [place], [place] [address] [phone] Social History Tobacco Use Types Packs/Day Years Used Date Smoking Tobacco: Never Assessed Sex Assigned at Date Recorded Not on file documented as of this encounter Progress Notes Eyad Bui - 01/28/2005 10:49 AM CDT Phone Note filed by [employer] at 08/25/102046 Author: [employer] Service: (none) Author Type: (none) Filed: 08/25/102046 Note Time: 01/28/051048 Status: Signed Service Mechanic: Message [employer] Mo B/Juan check on 01/28 122/78 R. arm P 88 Created on 28Jan2005 10:49am by YAZMIN TRAYLOR Acknowledged by JOSE ANTONIO RODGERS on 10:33am L SERVER documented in this encounter Plan of Treatment Not on filedocumented as of this encounter Visit Diagnoses Not on filedocumented in this encounter
--- OUTSIDE RECORDS SUMMARY | 2022-03-19 02:56 | XMS_ITS | Encounter Summary ---
:1940 Author Organization [facility] Address [address] [place] [address] Care Team Providers Name Role Phone Unavailable Primary Care Provider Unavailable Reason for Visit Reason Comments Other Encounter Details Date Type Department Care Team Description 05/28/2004 Telephone [place] [facility] Jose Antonio Rodgers MBBS Other Medicine [address] [place] [address] [address] [place], [place] [address] [phone] Social History Tobacco Use Types Packs/Day Years Used Date Smoking Tobacco: Never Assessed Sex Assigned at Date Recorded Not on file documented as of this encounter Progress Notes [place], Message - 05/28/2004 12:28 PM CST Phone Note filed by [employer] at 08/25/10 1611 Author: [employer] Service: (none) Author Type: (none) Filed: 08/25/101610 Note Time: 05/28/04 1228 Status: Signed 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 Created on 28May2004 12:28pm by KAREN DUNN Acknowledged by JOSE ANTONIO RODGERS on 1:36pm documented in this encounter Plan of Treatment Not on filedocumented as of this encounter Visit Diagnoses Not on filedocumented in this encounter
--- OUTSIDE RECORDS SUMMARY | 2022-03-19 02:56 | XMS_ITS | Encounter Summary ---
:1940 Author Organization [facility] Address [address] [place] [address] Care Team Providers Name Role Phone Unavailable Primary Care Provider Unavailable Reason for Visit Reason Comments Other Encounter Details Date Type Department Care Team Description 06/27/2004 Telephone [place] [facility] Jose Antonio Rodgers MBBS Other Medicine [address] [address] [place], [place] [address] [phone] Social History Tobacco Use Types Packs/Day Years Used Date Smoking Tobacco: Never Assessed Sex Assigned at Date Recorded Not on file documented as of this encounter Progress Notes [employer], Message - 06/27/2004 12:27 PM CST Phone Note filed by [employer] at 08/25/101647 Author: [employer] Service: (none) Author Type: (none) Filed: 08/25/101647 Note Time: 06/27/04 1227 Status: Signed 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 Created on 27Jun2004 12:27pm by KAREN DUNN Acknowledged by JOSE ANTONIO RODGERS on 1:48pm documented in this encounter Plan of Treatment Not on filedocumented as of this encounter Visit Diagnoses Not on filedocumented in this encounter
--- OUTSIDE RECORDS SUMMARY | 2022-03-19 02:56 | XMS_ITS | Encounter Summary ---
:1940 Author Organization [facility] Address [address] [place] [address] Care Team Providers Name Role Phone Unavailable Primary Care Provider Unavailable Reason for Visit Reason Comments Other Encounter Details Date Type Department Care Team Description 10/31/2004 Telephone [place] [facility] Jose Antonio Rodgers MBBS Other Medicine [address] [address] [place] [address] [phone] Social History Tobacco Use Types Packs/Day Years Used Date Smoking Tobacco: Never Assessed Sex Assigned at Date Recorded Not on file documented as of this encounter Progress Notes [employer], Message - 10/31/2004 12:33 PM CDT Phone Note filed by [employer] at 08/25/101858 Author: [employer] Service: (none) Author Type: (none) Filed: 08/25/101858 Note Time: 10/31/041232 Status: Signed Sugar Sampler: Message [employer] Tn! please see on-line vital sign flowsheet for today's blood pressure readings. Created on 31Oct2004 12:33pm by KAREN DUNN Acknowledged by JOSE ANTONIO RODGERS on 3:15pm UE COORDINATOR documented in this encounter Plan of Treatment Not on filedocumented as of this encounter Visit Diagnoses Not on filedocumented in this encounter
--- OUTSIDE RECORDS SUMMARY | 2022-03-19 02:56 | XMS_ITS | Encounter Summary ---
:1940 Author Organization [facility] Address [address] [place] [address] Care Team Providers Name Role Phone Unavailable Primary Care Provider Unavailable Encounter Details Date Type Department Care Team Description 06/27/2004 PN Conversion Only [facility] CONVERSION Angel Carolina MBBS [address] [place] [address] (Wo rk) Social History Tobacco Use Types Packs/Day Years Used Date Smoking Tobacco: Never Assessed Sex Assigned at Date Recorded Not on file documented as of this encounter Plan of Treatment Not on filedocumented as of this encounter Procedures Procedure Name Priority Date/Time Associated Diagnosis Comme nts GLUCOSE Routine 06/27/2004 11:56 AM Results for this BLADE ALIGNER procedure are i n the results section. LIPID PANEL AND Routine 06/27/2004 11:56 AM Resul ts for this DIRECT LDL(IF BLADE ALIGNER procedure are in NEEDED) the results section. COMPLETE BLOOD Routine 06/27/2004 11:56 AM Result s for this COUNT-W/DIFF BLADE ALIGNER procedure are i n the results section. PROSTATIC SPECIFIC Routine 06/27/2004 11:56 AM Re sults for this ANTIGEN(SCREEN) BLADE ALIGNER procedure ar e in the results section. documented in this encounter Results (ABNORMAL) Complete Blood Count-W/Diff (06/27/2004 11:56 AM BLADE ALIGNER) [facility] Method Time Signature White Blood Cell 5.8 3.8 - 11.0 HP CONVERSIO N Count K/cmm Red Blood Cell 5.81 4.20 - HP CONVERSION Count 5.90 m/cmm Hemoglobin 17.1 13.4 - HP CONVERSION 17.5 gm/dL Hematocrit 51.7 (H) 39.0 - HP CONVERSION 51.0 % Mean Corpuscular 88.9 80.0 - HP CONVERSION Volume 100.0 fl Mean Corpuscular 29.4 27.0 - HP CONVERSION Hemoglobin 34.0 pg Mean Corpuscular 33.1 32.0 - HP CONVERSION Hemoglobin Conc 36.5 gm/dL [place] RDW 12.8 11.0 - HP CONVERSION 15.0 % Platelet Count 279 140 - 450 HP CONVERSION k/cmm Differential Auto-Dif No normal HP CONVERSION Verify range Neutrophils 3.8 2.0 - 7.5 HP CONVERSION Absolute Count K/cmm Neutrophil 64.5 50.0 - HP CONVERSION 75.0 % Lymphocyte % 25.7 20.0 - HP CONVERSION 40.0 % Monocyte 7.7 5.0 - 14.0 HP CONVERSION % Eosinophil 2.0 0.0 - 6.0 HP CONVERSION % Basophil % 0.1 0.0 - 2.0 HP CONVERSION % Specimen (Source) Anatomical Collection Method Collection Time Re ceived Time Location / / Volume Laterality 06/27/2004 11:56 AM BLADE ALIGNER Jose Antonio COOK LAB_1 Performing Organization Address City/State/ZIP Code Phon e Number HP CONVERSION (ABNORMAL) Glucose (06/27/2004 11:56 AM BLADE ALIGNER) P athologist Signature Lab Glucose 104 (H) 60 - 100 HP CONVERSION mg/dL Specimen (Source) Anatomical Collection Method Collection Time Re ceived Time Location / / Volume Laterality 06/27/2004 11:56 AM BLADE ALIGNER Jose Antonio COOK LAB_1 Performing Organization Address City/State/ZIP Code Phon e Number HP CONVERSION (ABNORMAL) Lipid Panel and Direct LDL(If Needed) (06/27/2004 11:56 AM BLADE ALIGNER) Patholo gist Method Time Signature Cholesterol/HDL 6.2 No normal HP CONVERSION Ratio Screen range Cholesterol 197 125 - 199 HP CONVERSION mg/dL HDL Cholesterol 32 (L) 40 - 60 HP CONVERSION mg/dL Triglycerides 125 0 - 199 HP CONVERSION mg/dL LDL Calculated 140 (H) 66 - 129 HP CONVERSION mg/dL Comment: Specimen (Source) Anatomical Collection Method Collection Time Re ceived Time Location / / Volume Laterality 06/27/2004 11:56 AM BLADE ALIGNER Jose Antonio COOK LAB_1 Performing Organization Address City/[facility]/ZIP [facility] [place] [place] Phon e Number HP CONVERSION Prostatic Specific Antigen (Screen) (06/27/2004 11:56 AM BLADE ALIGNER) P athologist Signature Prostate 0.9 0.0 - 4.0 HP CONVERSION Specific ng/mL Antigen Specimen (Source) Anatomical Collection Method Collection Time Re ceived Time Location / / Volume Laterality 06/27/2004 11:56 AM BLADE ALIGNER Jose Antonio COOK LAB_1 Performing Organization Address [facility] Phon e Number HP CONVERSION documented in this encounter Visit Diagnoses Not on filedocumented in this encounter
--- OUTSIDE RECORDS SUMMARY | 2022-03-19 02:56 | XMS_ITS | Encounter Summary ---
:1940 Author Organization [facility] Address [address] [place] [address] Care Team Providers Name Role Phone Unavailable Primary Care Provider Unavailable Encounter Details Date Type Department Care Team Description 10/26/2003 PN Conversion Only [facility] [address] [place] [address] Social History Tobacco Use Types Packs/Day Years Used Date Smoking Tobacco: Never Assessed Sex Assigned at Date Recorded Not on file documented as of this encounter Progress Notes Phone Note, Clinician - 10/26/2003 12:01 AM CDT Phone Note filed by Clinician Phone Note at 08/26/101421 Author: Clinician Phone Note Service: (none) Author Type: Resource Filed: 08/26/101421 Note Time: 10/26/03 0001 Status: Signed Bowl Attendant: Clinician Phone Note (Resource) TO: VIKTORIYA RODGERS FROM: KAREN HELTON [phone] 10/26/03 * PROVIDER MESSAGE: WINNIEI *NO * 03:31PM * INPUT NECESSARY * MESSAGE: blood pressure 130/66 right * HOME PHONE:[phone] * arm at 1328.radial pulse 72 and * CONTACT PHONE:[phone] * regular. bp 124/72 left arm at 1331.pt rested 5 minutes b/4 bp readings obtained.large cuff applied to obtain bp readings. SUBJECTIVE: ALLERGIES/SENSITIVITIES... 03/23/04 CURRENT MEDICATIONS... 07/31/03 PERTINENT PAST HISTORY... 07/31/03 WEIGHT: ASSESSMENT: fyi-blood pressure readings PLAN: DISPOSITION: NO DISPOSITION GIVEN CALL BY KAREN HELTON 10/26/2003 03:27PM [id number] ADDENDUM: Phone Note, Clinician - 10/23/2003 12:01 AM CDT Phone Note filed by Clinician Phone Note at 08/26/10 1030 Author: Clinician Phone Note Service: (none) Author Type: Resource Filed: 08/26/10 1420 Note Time: 10/23/03 0001 Status: Signed Bowl Attendant: Clinician Phone Note (Resource) TO: VIKTORIYA RODGERS FROM: VAUGHN FISHER [phone] 10/23/03 * PROVIDER MESSAGE: ROUTINE * 08:25AM * *WITHIN 4 HOURS * MESSAGE: Pt calling because he would * HOME PHONE:[phone] * like more Viagra 100mg. This time * CONTACT PHONE:[phone] * he would like the script good for a longer time. He uses our pharmacy. Thank You! SUBJECTIVE: ALLERGIES/SENSITIVITIES... 07/31/03 CURRENT MEDICATIONS... 07/31/03 PERTINENT PAST HISTORY... 07/31/03 WEIGHT: ASSESSMENT: Pt calling PLAN: DISPOSITION: NO DISPOSITION GIVEN CALL BY VAUGHN FISHER 10/23/2003 08:20AM [phone] ADDENDUM: <> 10/23/2003 01:14PM by CONSTANTINO BOONE RN: Per Dr Garay, Please call Viagra 100mg #8 with 3 refills. Rx called to [facility] pharmacy. Pt was notified. Phone Note, Clinician - 09/28/2003 12:01 AM CDT Phone Note filed by Clinician Phone Note at 08/26/10 1408 Author: Clinician Phone Note Service: (none) Author Type: Resource Filed: 08/26/10 1408 Note Time: 09/28/03 0001 Status: Signed Bowl Attendant: Clinician Phone Note (Resource) TO: VIKTORIYA RODGERS FROM: KAREN HELTON [phone] 09/28/03 * PROVIDER MESSAGE: FYI *NO * 02:32PM * INPUT NECESSARY * MESSAGE: blood pressure 128/76 right * HOME PHONE:[phone] * arm at 1338.radial pulse 60 and * CONTACT PHONE:[phone] * regular. bp 126/68 left arm at 1340.pt rested 5 minutes b/4 bp readings obtained.large bp cuff applied to obtain bp readings.kjs SUBJECTIVE: ALLERGIES/SENSITIVITIES... 07/31/03 CURRENT MEDICATIONS... 07/31/03 PERTINENT PAST HISTORY... 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
--- OUTSIDE RECORDS SUMMARY | 2022-03-19 02:56 | XMS_ITS | Encounter Summary ---
:1940 Author Organization [facility] Address [address] [place] [address] Care Team Providers Name Role Phone Unavailable Primary Care Provider Unavailable Encounter Details Date Type Department Care Team Description 02/27/2004 Nursing Visit [place] [facility] Jose Antonio Carolina , JORDANABS Medicine [address] [address] [place] [address] [phone] Social History Tobacco Use Types Packs/Day Years Used Date Smoking Tobacco: Never Assessed Sex Assigned at Date Recorded Not on file documented as of this encounter Plan of Treatment Not on filedocumented as of this encounter Visit Diagnoses Not on filedocumented in this encounter
--- OUTSIDE RECORDS SUMMARY | 2022-03-19 02:56 | XMS_ITS | Encounter Summary ---
:1940 Author Organization [facility] Address [address] [place] [address] Care Team Providers Name Role Phone Unavailable Primary Care Provider Unavailable Encounter Details Date Type Department Care Team Description 06/27/2004 Nursing Visit [place] [facility] Jose Antonio Carolina, JOYCE Medicine [address] [facility] [address] [place] [address] [place] [address] [phone] Social History Tobacco Use Types Packs/Day Years Used Date Smoking Tobacco: Never Assessed Sex Assigned at Date Recorded Not on file documented as of this encounter Last Filed Vital Signs Vital Sign Reading Time Taken Comments Blood Pressure 150/80 06/27/2004 10:56 AM GREEN CHAIN PULLER Pulse 76 06/27/2004 10:56 AM GREEN CHAIN PULLER Temperature - - Respiratory Rate - - Oxygen Saturation - - Inhaled Oxygen Concentration - - Weight 97 kg (213 lb 13.5 oz) 06/27/2004 10:56 AM C: 97 .00kg GREEN CHAIN PULLER Height 177 cm (5' 9.69) 06/27/2004 10:56 AM C: 177.00c m GREEN CHAIN PULLER Body Mass Index 30.96 06/27/2004 10:56 AM GREEN CHAIN PULLER documented in this encounter Plan of Treatment Not on filedocumented as of this encounter Visit Diagnoses Not on filedocumented in this encounter
--- OUTSIDE RECORDS SUMMARY | 2022-03-19 02:56 | XMS_ITS | Encounter Summary ---
:1940 Author Organization [facility] Address [address] [place] [address] Care Team Providers Name Role Phone Unavailable Primary Care Provider Unavailable Reason for Visit Reason Comments Other Encounter Details Date Type Department Care Team Description 08/29/2004 Telephone [facility], Message Other [address] [place] [address] Social History Tobacco Use Types Packs/Day Years Used Date Smoking Tobacco: Never Assessed Sex Assigned at Date Recorded Not on file documented as of this encounter Progress Notes Marie Mcgill - 08/29/2004 10:20 AM CDT Phone Note filed by Marie Mcgill RN at 08/25/101753 Author: Marie Mcgill RN Service: (none) Author Type: (none) Filed: 08/25/101753 Note Time: 08/29/04 1020 Status: Signed Bmet: Yeny Conversion BP today was 152/80 with large cuff sitting down right arm. Created on 29Aug2004 10:20am by MARIE MCGILL On 19Sep2004 9:24am VIKTORIYA RODGERS wrote: pt needs to be seen b/c of high bp Acknowledged by VIKTORIYA RODGERS on 9:24am On 19Sep2004 9:48am LUZMARIA BELLAMY wrote: Left message for patient to call for an appt. Acknowledged by LUZMARIA BELLAMY on 9:48am LENDING OFFICER documented in this encounter Plan of Treatment Not on filedocumented as of this encounter Visit Diagnoses Not on filedocumented in this encounter
--- OUTSIDE RECORDS SUMMARY | 2022-03-19 02:56 | XMS_ITS | Encounter Summary ---
:1940 Author Organization [facility] Address [address] [place] [address] Care Team Providers Name Role Phone Unavailable Primary Care Provider Unavailable Encounter Details Date Type Department Care Team Description 08/29/2004 Nursing Visit [place] [facility] Juan Antonio, Caleb martínez MD Medicine [address] [place] [address] [facility] [address] [place] [address] [place], [place] [phone] (Wo rk) Social History Tobacco Use Types Packs/Day Years Used Date Smoking Tobacco: Never Assessed Sex Assigned at Date Recorded Not on file documented as of this encounter Last Filed Vital Signs Vital Sign Reading Time Taken Comments Blood Pressure 152/80 08/29/2004 10:19 AM CDT Pulse - - Temperature - - Respiratory Rate - - Oxygen Saturation - - Inhaled Oxygen Concentration - - Weight - - Height - - Body Mass Index - - documented in this encounter Plan of Treatment Not on filedocumented as of this encounter Visit Diagnoses Not on filedocumented in this encounter
--- OUTSIDE RECORDS SUMMARY | 2022-03-19 02:56 | XMS_ITS | Encounter Summary ---
:1940 Author Organization [facility] Address [address] [place] [address] Care Team Providers Name Role Phone Unavailable Primary Care Provider Unavailable Encounter Details Date Type Department Care Team Description 09/26/2004 Nursing Visit [place] [facility] Juan Antonio, Caleb martínez MD Medicine [address] [facility] [address] [facility] [address] [place] [address] [place], [place] [phone] (Wo rk) Social History Tobacco Use Types Packs/Day Years Used Date Smoking Tobacco: Never Assessed Sex Assigned at Date Recorded Not on file documented as of this encounter Last Filed Vital Signs Vital Sign Reading Time Taken Comments Blood Pressure 110/70 09/26/2004 10:40 AM CDT Pulse 64 09/26/2004 10:37 AM C: Radial Re gular CDT Temperature - - Respiratory Rate - - Oxygen Saturation - - Inhaled Oxygen - - Concentration Weight 98.7 kg (217 lb 10.9 09/26/2004 10:07 AM C: 98.7 kg oz) CDT Height - - Body Mass Index 31.51 06/27/2004 10:56 AM [employer] documented in this encounter Plan of Treatment Not on filedocumented as of this encounter Visit Diagnoses Not on filedocumented in this encounter
--- OUTSIDE RECORDS SUMMARY | 2022-03-19 02:56 | XMS_ITS | Encounter Summary ---
:1940 Author Organization [facility] Address [address] [place] [address] Care Team Providers Name Role Phone Unavailable Primary Care Provider Unavailable Encounter Details Date Type Department Care Team Description 05/24/2003 PN Conversion Only [place] [facility] Jose Antonio Wells, JOYCE [address] [employer] [facility] [address] [place] [address] [place] [address] (Wo rk) Social History Tobacco Use Types Packs/Day Years Used Date Smoking Tobacco: Never Assessed Sex Assigned at Date Recorded Not on file documented as of this encounter Plan of Treatment Not on filedocumented as of this encounter Procedures Procedure Name Priority Date/Time Associated Diagnosis Comme nts COMPLETE BLOOD Routine 05/24/2003 9:51 AM Results for this COUNT-W/DIFF PROFESSIONAL ARCHITECT procedure are i n the results section. documented in this encounter Results (ABNORMAL) Complete Blood Count-W/Diff (05/24/2003 9:51 AM PROFESSIONAL ARCHITECT) [facility] gist Method Time Signature RDW 12.6 11.0 - HP CONVERSION 15.0 % Platelet Count 256 140 - 450 HP CONVERSION k/cmm Differential Auto-Dif No normal HP CONVERSION Verify range Neutrophils 4.1 2.0 - 7.5 HP CONVERSION Absolute Count K/cmm Neutrophil 67.3 50.0 - HP CONVERSION 75.0 % Lymphocyte % 23.4 20.0 - HP CONVERSION 40.0 % Monocyte 7.0 5.0 - 14.0 HP CONVERSION % Eosinophil 2.2 0.0 - 6.0 HP CONVERSION % Basophil % 0.1 0.0 - 2.0 HP CONVERSION % White Blood Cell 6.0 3.8 - 11.0 [facility]VERSI[facility] N Count K/cmm Red Blood Cell 5.89 4.20 - HP CONVERSION Count 5.90 m/cmm Hemoglobin 17.5 13.4 - HP CONVERSION 17.5 gm/dL Hematocrit 51.3 (H) 39.0 - HP CONVERSION 51.0 % Mean Corpuscular 87.1 80.0 - HP CONVERSION Volume 100.0 fl Mean Corpuscular 29.7 27.0 - HP CONVERSION Hemoglobin 34.0 pg Mean Corpuscular 34.2 32.0 - HP CONVERSION Hemoglobin Conc 36.5 gm/dL [place] Specimen (Source) Anatomical Collection Method Collection Time Re ceived Time Location / / Volume Laterality 05/24/2003 9:51 AM PROFESSIONAL ARCHITECT Jose Antonio [facility] Performing Organization Address City/State/ZIP Code Phon e Number HP CONVERSION documented in this encounter Visit Diagnoses Not on filedocumented in this encounter
--- OUTSIDE RECORDS SUMMARY | 2022-03-19 02:56 | XMS_ITS | Encounter Summary ---
:1940 Author Organization [facility] Address [address] [place] [address] Care Team Providers Name Role Phone Unavailable Primary Care Provider Unavailable Encounter Details Date Type Department Care Team Description 01/28/2005 Nursing Visit [place] [facility] Yazan Garay MD [facility] [address] [facility] [address] [place] [address] [place] [address] [phone] Social History Tobacco Use Types Packs/Day Years Used Date Smoking Tobacco: Never Assessed Sex Assigned at Date Recorded Not on file documented as of this encounter Last Filed Vital Signs Vital Sign Reading Time Taken Comments Blood Pressure 122/78 01/28/2005 10:47 AM CDT Pulse 88 01/28/2005 10:47 AM CDT Temperature - - Respiratory Rate - - Oxygen Saturation - - Inhaled Oxygen Concentration - - Weight - - Height - - Body Mass Index - - documented in this encounter Plan of Treatment Not on filedocumented as of this encounter Visit Diagnoses Not on filedocumented in this encounter
--- OUTSIDE RECORDS SUMMARY | 2022-03-19 02:56 | XMS_ITS | Encounter Summary ---
:1940 Author Organization [facility] Address [address] [place] [address] Care Team Providers Name Role Phone Unavailable Primary Care Provider Unavailable Reason for Visit Reason Comments Other Encounter Details Date Type Department Care Team Description 12/28/2003 Telephone [place] [facility] Jose Antonio Rodgers MBBS Other Medicine [address] [address] [place], [place] [address] [phone] Social History Tobacco Use Types Packs/Day Years Used Date Smoking Tobacco: Never Assessed Sex Assigned at Date Recorded Not on file documented as of this encounter Progress Notes [place], Message - 12/28/2003 2:03 PM CDT Phone Note filed by [employer] at 08/25/10 4773 Author: [employer] Service: (none) Author Type: (none) Filed: 08/25/10 9826 Note Time: 12/28/03 1403 Status: Signed 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 Created on 28Dec2003 2:03pm by KAREN DUNN Acknowledged by JOSE ANTONIO RODGERS on 3:43pm documented in this encounter Plan of Treatment Not on filedocumented as of this encounter Visit Diagnoses Not on filedocumented in this encounter
--- OUTSIDE RECORDS SUMMARY | 2022-03-19 02:56 | XMS_ITS | Encounter Summary ---
:1940 Author Organization [facility] Address [address] [place] [address] Care Team Providers Name Role Phone Unavailable Primary Care Provider Unavailable Reason for Visit Reason Comments Other Encounter Details Date Type Department Care Team Description 03/26/2004 Telephone [place] [facility] Jose Antonio Rodgers MBBS Other Medicine [address] [address] [place], [place] [address] [phone] Social History Tobacco Use Types Packs/Day Years Used Date Smoking Tobacco: Never Assessed Sex Assigned at Date Recorded Not on file documented as of this encounter Progress Notes [place], Message - 03/26/2004 1:22 PM CST Phone Note filed by [employer] at 08/25/10 944 Author: [employer] Service: (none) Author Type: (none) Filed: 08/25/101512 Note Time: 03/26/04 1322 Status: Signed Retail Brand Ambassador: Message [employer] blood pressure 134/76 right arm at 1205.radial pulse 76 and regular.bp 120/74 left arm at 1207.pt rested 5 minutes b/4 bp readings completed.large size bp cuff applied. Created on 26Mar2004 1:22pm by KAREN DUNN Acknowledged by JOSE ANTONIO RODGERS on 11:03am documented in this encounter Plan of Treatment Not on filedocumented as of this encounter Visit Diagnoses Not on filedocumented in this encounter
--- OUTSIDE RECORDS SUMMARY | 2022-03-19 02:56 | XMS_ITS | Encounter Summary ---
:1940 Author Organization [facility] Address [address] [place] [address] Care Team Providers Name Role Phone Unavailable Primary Care Provider Unavailable Reason for Visit Reason Comments Other Encounter Details Date Type Department Care Team Description 05/28/2004 Telephone [place] [facility] Jose Antonio Rodgers MBBS Other Medicine [address] [address] [place], [place] [address] [phone] Social History Tobacco Use Types Packs/Day Years Used Date Smoking Tobacco: Never Assessed Sex Assigned at Date Recorded Not on file documented as of this encounter Progress Notes [facility], [facility] - 05/28/2004 12:33 PM CST Phone Note filed by Gipis at 08/25/10 1611 Author: Gipis Service: (none) Author Type: (none) Filed: 08/25/10 1611 Note Time: 05/28/04 1233 Status: Signed 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 would you renew pt depotestosterone 200 mg IM every month for 1 year with diagnosis code of 257.2 ?? you last saw pt on 05/17/2003 and i reminded pt that it is time for his yearly well exam with you.Thanx! erika Created on 28May2004 12:33pm by ERIKA DUNN On 28May2004 1:39pm JOSE ANTONIO RODGERS wrote: please ask the pt to make apt for complete physical Acknowledged by JOSE ANTONIO RODGERS on 1:39pm documented in this encounter Plan of Treatment Not on filedocumented as of this encounter Visit Diagnoses Not on filedocumented in this encounter
--- OUTSIDE RECORDS SUMMARY | 2022-03-19 02:56 | XMS_ITS | Encounter Summary ---
:1940 Author Organization [facility] Address [address] [place] [address] Care Team Providers Name Role Phone Unavailable Primary Care Provider Unavailable Encounter Details Date Type Department Care Team Description 09/26/2004 Office Visit [place] [facility] Jose Antonio Rodgers MBBS Medicine [address] [place] [address] [phone] Social History Tobacco Use Types Packs/Day Years Used Date Smoking Tobacco: Never Assessed Sex Assigned at Date Recorded Not on file documented as of this encounter Progress Notes Jose Antonio Rodgers MBBS - 09/26/2004 12:01 AM CDT Progress Notes signed by JOYCE Stover at 01/07/05 1359 Author: Jose Antonio Rodgers MD Service: (none) Author Type: Physician Filed: 08/29/10 0451 Note Time: 09/26/04 0001 Status: Signed Horse Race Timer: Jose Antonio Rodgers MD (Physician) NAME: MO WRIGHT MR: [id number] ACCT: VISIT: [id number] DICTATING CLINICIAN: JOSE ANTONIO RODGERS MD JOB: [id number] CLINIC PROGRESS NOTE DATE OF VISIT: 09/26/2004 SUBJECTIVE: Mo Wright is a 64-year-old white gentleman who is here for a followup on his high blood pressure. At present he denies any headache, any chest pains, any shortness of breath, any nausea, vomiting, or any abdominal pain. CURRENT MEDICATIONS: Reviewed online. ADR/ALLERGIES: REVIEWED ONLINE. OBJECTIVE: VS: BP: 130/90. P: 68. Wt: 117.7. HEENT: Conjunctivae nonicteric, nonhyperemic. LUNGS: Clear to auscultation bilaterally. HEART: S1, S2 audible. No S3, S4, no gallop. ABDOMEN: Soft and nontender. EXTREMITIES: No edema. ASSESSMENT: Hypertension fairly well-controlled though diastolic is slightly high, the patient is slightly anxious. PLAN: The patient was asked to continue with Norvasc. The patient also requested the hydrocortisone cream 2.5% and the ? that he gets q. monthly. MOIRA:[id number] C: 10/09/04 10:35 DOCUMENT: [id number] documented in this encounter Plan of Treatment Not on filedocumented as of this encounter Visit Diagnoses Not on filedocumented in this encounter
--- OUTSIDE RECORDS SUMMARY | 2022-03-19 02:56 | XMS_ITS | Encounter Summary ---
:1940 Author Organization [facility] Address [address] [place] [address] Care Team Providers Name Role Phone Unavailable Primary Care Provider Unavailable Encounter Details Date Type Department Care Team Description 05/28/2004 Nursing Visit [place] [facility] Jose Antonio Carolina, JORDANABS Medicine [address] [address] [place] [address] [phone] Social History Tobacco Use Types Packs/Day Years Used Date Smoking Tobacco: Never Assessed Sex Assigned at Date Recorded Not on file documented as of this encounter Plan of Treatment Not on filedocumented as of this encounter Visit Diagnoses Not on filedocumented in this encounter
--- OUTSIDE RECORDS SUMMARY | 2022-03-19 02:56 | XMS_ITS | Encounter Summary ---
:1940 Author Organization [facility] Address [address] [place] [address] Care Team Providers Name Role Phone Unavailable Primary Care Provider Unavailable Encounter Details Date Type Department Care Team Description 03/24/2004 PN Conversion Only [place] [facility] [address] [address] [place] [address] Social History Tobacco Use Types Packs/Day Years Used Date Smoking Tobacco: Never Assessed Sex Assigned at Date Recorded Not on file documented as of this encounter Plan of Treatment Not on filedocumented as of this encounter Visit Diagnoses Not on filedocumented in this encounter
--- OUTSIDE RECORDS SUMMARY | 2022-03-19 02:56 | XMS_ITS | Encounter Summary ---
:1940 Author Organization [facility] Address [address] [place] [address] Care Team Providers Name Role Phone Unavailable Primary Care Provider Unavailable Encounter Details Date Type Department Care Team Description 07/31/2003 PN Conversion Only [facility] [address] [place] [address] Social History Tobacco Use Types Packs/Day Years Used Date Smoking Tobacco: Never Assessed Sex Assigned at Date Recorded Not on file documented as of this encounter Progress Notes Phone Note, Clinician - 07/31/2003 12:01 AM CST Phone Note filed by Clinician Phone Note at 08/26/101337 Author: Clinician Phone Note Service: (none) Author Type: Resource Filed: 08/26/101337 Note Time: 07/31/03 0001 Status: Signed Housing Installer: Clinician Phone Note (Resource) TO: JOSE ANTONIO CAROLINA FROM: KAREN HELTON [phone] 07/31/03 * PROVIDER MESSAGE: FYI *NO * 02:08PM * INPUT NECESSARY * MESSAGE: blood pressure 106/62 right * HOME PHONE:[phone] * arm at 1:11pm. bp 110/70 left arm * CONTACT PHONE:[phone] * at 1:13pm.radial pulse was 64 and regular.pt rested 5 minutes b/4 readings obtained. SUBJECTIVE: ALLERGIES/SENSITIVITIES... 07/31/03 CURRENT MEDICATIONS... 07/31/03 PERTINENT PAST HISTORY... 07/31/03 WEIGHT: ASSESSMENT: bp readings 07/31/2003 PLAN: DISPOSITION: NO DISPOSITION GIVEN CALL BY KAREN HELTON 07/31/2003 02:04PM [phone] ADDENDUM: <> 08/02/2003 02:24PM by CONSTANTINO FRANZ RN: PEr DR. carolina, above noted. Phone Note, Clinician - 07/20/2003 12:01 AM CST Phone Note filed by Clinician Phone Note at 08/26/10 3387 Author: Clinician Phone Note Service: (none) Author Type: Resource Filed: 08/26/10 5670 Note Time: 07/20/03 0001 Status: Signed Housing Installer: Clinician Phone Note (Resource) TO: JOSE ANTONIO CAROLINA FROM: DEVANG DUKES RN [phone] * PROVIDER MESSAGE: ROUTINE * 07/20/03 12:28PM * *WITHIN 4 HOURS * MESSAGE: Pt calling and he has 2 * HOME PHONE:[phone] * concerns: 1) He had a Colonoscopy * CONTACT PHONE:[phone] * several week s ago at [facility] * PHARMACY: [phone] Pk * Hosp and would like to get the * [facility] * results, 2) He went to get a refill of his Viagra 100mg and there was a problem and he on ly got 2 pills. He would like you to call in a refill and renew it fo r 1 yr. SUBJECTIVE: ALLERGIES/SENSITIVITIES... CURRENT MEDICATIONS... PERTINENT PAST HISTORY... WEIGHT: ASSESSMENT: test results/refill PLAN: DISPOSITION: NO DISPOSITION GIVEN CALL BY DEVANG DUKES RN 07/20/2003 12:25PM [phone] ADDENDUM: <> 07/20/2003 01:51PM by CONSTANTINO BOONE RN: Per Dr Carolina, Pharmacy called Viagra 100mg #6 with 1 refill. Pt not available to call. Colonoscopy results called x 2. I have left message for pt to return this call. <> 07/20/2003 07:39PM by WILMER RAZA RN: Pt calling and requests the answer to the message in the computer. Gave pt the above message but unable to give colonoscpy results. Pt will need to call on Wednesday. If anything quite abnormal they would have called him soon after the test. Pt agrees to call on Wednesday . <> 07/23/2003 10:09AM by YESSY DUDLEY LPN: Per Dr Romano's written orders, he has colon polyps. He should repeat colonoscopy every 3 years The patient has been notified. Phone Note, Clinician - 07/03/2003 12:01 AM CST Phone Note signed by Nadira Abdi MD at 07/23/03 1553 Author: Clinician Phone Note Service: (none) Author Type: Resource Filed: 07/31/03 0000 Note Time: 07/03/03 0001 Status: Signed Housing Installer: Clinician Phone Note (Resource) - TREATING PROVIDER: NADIRA JENN * HOME PHONE:[phone] * SUBJECTIVE: ALLERGIES/SENSITIVITIES... CURRENT MEDICATIONS... PERTINENT PAST HISTORY... ASSESSMENT: Rx refill DISPOSITION: NO DISPOSITION GIVEN PLAN: [facility] COMMENTS... Per for ; ok for Viagra 100mg tablets #6 x2 refills. This was faxed to [facility] at [phone] by Lacy iPerson CALL BY LEAH OROZCO 07/03/2003 11:41AM [phone] ADDENDUM: Phone Note, Clinician - 06/13/2003 12:01 AM CST Phone Note filed by Clinician Phone Note at 08/26/10 1142 Author: Clinician Phone Note Service: (none) Author Type: Resource Filed: 08/26/101312 Note Time: 06/13/03 0001 Status: Signed Housing Installer: Clinician Phone Note (Resource) TO: JOSE ANTONIO CAROLINA FROM: VAUGHN FISHER [phone] 06/13/03 * PROVIDER MESSAGE: ROUTINE * 03:47PM * *WITHIN 4 HOURS * MESSAGE: Pt calling because he would * HOME PHONE:[phone] * like a refill of Norvasc 2.5mg. He * CONTACT PHONE:[phone] * uses [facility] and their number is [phone]. Thank You! SUBJECTIVE: ALLERGIES/SENSITIVITIES... CURRENT MEDICATIONS... PERTINENT PAST HISTORY... WEIGHT: ASSESSMENT: Refill PLAN: DISPOSITION: NO DISPOSITION GIVEN CALL BY VAUGHN FISHER 06/13/2003 03:45PM [phone] ADDENDUM: <> 06/14/2003 10:12AM by CONSTANTINO BOONE RN: Per Dr Romano for [facility] to fill Norvasc 2.5mg 1 po QD #30 with 3 refills. Rx called to above pharmacy. I left message for pt. Phone Note, Clinician - 05/25/2003 12:01 AM CST Phone Note filed by Clinician Phone Note at 08/26/10 5436 Author: Clinician Phone Note Service: (none) Author Type: Resource Filed: 08/26/101302 Note Time: 05/25/03 0001 Status: Signed Housing Installer: Clinician Phone Note (Resource) TO: JOSE ANTONIO CAROLINA FROM: OLIVERIO LENTZ RN [phone] * PROVIDER MESSAGE: ROUTINE * 05/25/03 08:35AM * *WITHIN 4 HOURS * MESSAGE: Mo is calling for his * HOME PHONE:[phone] * lab results from yesterday 05/24. * CONTACT PHONE:[phone] * SUBJECTIVE: * detailed message is ok * ALLERGIES/SENSITIVITIES... CURRENT MEDICATIONS... PERTINENT PAST HISTORY... WEIGHT: ASSESSMENT: Lab results PLAN: DISPOSITION: NO DISPOSITION GIVEN CALL BY OLIVERIO LENTZ RN 05/25/2003 08:34AM [phone] ADDENDUM: <> 05/25/2003 09:46AM by SARAH VALENZUELA: Per Lorena Carolina: message left in detail about lab work. Jose Antonio Carolina MBBS - 05/23/2003 12:01 AM CST Progress Notes signed by JOYCE Stover at 04/24/04 9110 Author: Jose Antonio Carolina MD Service: (none) Author Type: Physician Filed: 08/28/10 1801 Note Time: 05/23/03 0001 Status: Signed Housing Installer: Jose Antonio Carolina MD (Physician) NAME: MO DALEY MR: [id number] ACCT: [id number] VISIT: [id number] DICTATING CLINICIAN: JOSE ANTONIO CAROLINA MD JOB: [id number] CLINIC PROGRESS NOTE DATE OF VISIT: 05/23/2003 SUBJECTIVE: : 1940. Mo Wright is here for a follow up on his high hemoglobin and hematocrit. He, however, denies any chest pains, any shortness of breath, any fatigue, or any weakness in the arms or legs, or any slurring of speech, or any blurring of vision. He had a physical done and had a CBC which showed high hemoglobin and hematocrit. The patient, however, does not smoke. He does not live in a high altitude. CURRENT MEDICATIONS: Include Viagra p.r.n., multivitamins, Norvasc 2.5 q. daily, ??Xalatan?? O.U. 1 gtts q.d., ??endogen?? 1% injection q. monthly. ADR/ALLERGIES: NO KNOWN DRUG ALLERGIES. SOCIAL HISTORY: Nonsmoker. OBJECTIVE: VS: Stable. BP: 140/90. T: P: 76. Wt: 209.7. HEENT: Negative. Conjunctivae anicteric. LUNGS: Clear to auscultation bilaterally. HEART: S1 and S2 audible. No S3 or S4. No gallop. ABDOMEN: Soft, nontender. EXTREMITIES: No edema. NEUROLOGICAL: Nonfocal. ASSESSMENT: High hemoglobin, high hematocrit, etiology unclear. We will repeat labs again tomorrow and if the patient has persistent hematocrit, hemoglobin, we will discuss with the box hinge and lock attacher, to rule out any possibility of hemochromatosis. PLAN: See assessment. TT: CT: MOIRA:[id number] C: 05/24/03 16:25 DOCUMENT: [id number] T DESK ASSISTANT Phone Note, Clinician - 05/21/2003 12:01 AM CST Phone Note signed by JOYCE Stover at 04/22/04 0954 Author: Clinician Phone Note Service: (none) Author Type: Resource Filed: 07/31/03 0000 Note Time: 05/21/03 0001 Status: Signed Housing Installer: Clinician Phone Note (Resource) - TREATING PROVIDER: JOSE ANTONIO CAROLINA SUBJECTIVE: * HOME PHONE:[phone] * ALLERGIES/SENSITIVITIES... CURRENT MEDICATIONS... PERTINENT PAST HISTORY... ASSESSMENT: lab letter DISPOSITION: NO DISPOSITION [facility]IV[facility] COM[facility]... Per Dr. carolina, please make an appointment to discuss abnormal blood work. CALL BY CONSTANTINO FRANZ RN 05/21/2003 02:30PM [phone] ADDENDUM: documented in this encounter Plan of Treatment Not on filedocumented as of this encounter Visit Diagnoses Not on filedocumented in this encounter
--- OUTSIDE RECORDS SUMMARY | 2022-03-19 02:56 | XMS_ITS | Encounter Summary ---
:1940 Author Organization [facility] Address [address] [place] [address] Care Team Providers Name Role Phone Unavailable Primary Care Provider Unavailable Reason for Visit Reason Comments Other Encounter Details Date Type Department Care Team Description 04/23/2004 Telephone [facility] Jose Antonio Rodgers MBBS Other Medicine [address] [address] [place], [place] [address] [phone] Social History Tobacco Use Types Packs/Day Years Used Date Smoking Tobacco: Never Assessed Sex Assigned at Date Recorded Not on file documented as of this encounter Progress Notes [place], Message - 04/23/2004 12:52 PM CST Phone Note filed by [employer] at 08/25/10 3670 Author: [employer] Service: (none) Author Type: (none) Filed: 08/25/10 1538 Note Time: 04/23/04 1252 Status: Signed 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 Created on 23Apr2004 12:52pm by KAREN DUNN Acknowledged by JOSE ANTONIO RODGERS on 2:22pm documented in this encounter Plan of Treatment Not on filedocumented as of this encounter Visit Diagnoses Not on filedocumented in this encounter
--- OUTSIDE RECORDS SUMMARY | 2022-03-19 02:56 | XMS_ITS | Encounter Summary ---
:1940 Author Organization [facility] Address [address] [place] [address] Care Team Providers Name Role Phone Unavailable Primary Care Provider Unavailable Encounter Details Date Type Department Care Team Description 05/17/2003 PN Conversion Only [facility] Marques Rodgers MBBS Medicine [address] [id number] (Wo rk) Social History Tobacco Use Types Packs/Day Years Used Date Smoking Tobacco: Never Assessed Sex Assigned at Date Recorded Not on file documented as of this encounter Progress Notes Jose Antonio Rodgers MBBS - 05/17/2003 12:01 AM CST Progress Notes signed by JOYCE Stover at 04/22/04 0952 Author: Jose Antonio Rodgers MD Service: (none) Author Type: Physician Filed: 08/28/10 1754 Note Time: 05/17/03 0001 Status: Signed Hospice Coordinator: Jose Antonio Rodgers MD (Physician) NAME: MO SOTELO MR: [id number] ACCT: [id number] VISIT: [id number] DICTATING CLINICIAN: JOSE ANTONIO RODGERS MD JOB: [id number] CLINIC PROGRESS NOTE DATE OF VISIT: 05/17/2003 SUBJECTIVE: : 1940. Mo Sotelo is here for a physical. At present he denies any chest pains, any shortness of breath, any nausea or vomiting or any abdominal pain. He is however concerned that his brother was just diagnosed with a colon polyp which was cancerous and he wants a colonoscopy to be done. CURRENT MEDICATIONS: None. ADR/ALLERGIES: NO KNOWN DRUG ALLERGIES. MEDICATIONS: Include Norvasc 2.5 mg q.d., Xalatan eye drops 2.5 mg, multivitamins and Viagra. AndroGel 1% 50-gram gel packet, 90 grams. Use as directed. 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 Patient lives alone and is a . PAST MEDICAL HISTORY: Consistent with cyst removed from the neck, hypertension. REVIEW OF SYSTEMS: Essentially negative. OBJECTIVE: HEENT: Negative. LUNGS: Clear to auscultation bilaterally. HEART: S1, S2 audible. No S3, no S4, no gallop. ABDOMEN: Soft, nontender. EXTREMITIES: No edema. NEUROLOGICAL: Nonfocal. RECTAL: Hemoccult negative. ASSESSMENT: Physical performed. Health maintenance guidelines discussed with the patient. PLAN: Fasting blood sugar, full profile, CBC obtained along with PSA for his BPH since his rectal examination shows Hemoccult negative but his prostate mildly enlarged. patient will also schedule for a colonoscopy because of the family history. TT: CT: MOIRA:[id number] C: 05/17/03 23:01 DOCUMENT: [id number] ING CHEF Phone Note, Clinician - 05/15/2003 12:01 AM CST Phone Note signed by JOYCE Stover at 04/21/04 1408 Author: Clinician Phone Note Service: (none) Author Type: Resource Filed: 05/17/03 0000 Note Time: 05/15/03 0001 Status: Signed Hospice Coordinator: Clinician Phone Note (Resource) - TREATING PROVIDER: JOSE ANTONIO RODGERS SUBJECTIVE: * HOME PHONE:[phone] * ALLERGIES/SENSITIVITIES... CURRENT MEDICATIONS... PERTINENT PAST HISTORY... ASSESSMENT: Rx refill DISPOSITION: NO DISPOSITION [facility]... Per ; ok for Norvasc 2.5mg tablets #30 x1 refill. This was called into [facility] at [phone] by Bere Clemente CALL BY LEAH OROZCO 05/15/2003 01:48PM [phone] ADDENDUM: ING CHEF Phone Note, Clinician - 01/02/2003 12:01 AM CDT Phone Note signed by JOYCE Stover at 03/31/04 0813 Author: Clinician Phone Note Service: (none) Author Type: Resource Filed: 05/17/03 0000 Note Time: 01/02/03 0001 Status: Signed Hospice Coordinator: Clinician Phone Note (Resource) TO: JOSE ANTONIO RODGERS FROM: CARLOS SELF [phone] 01/02/03 * PROVIDER MESSAGE: ROUTINE * 11:43AM * *WITHIN 4 HOURS * MESSAGE: pt filled his viagra, * HOME PHONE:[phone] * noticed that there were no refills * CONTACT PHONE:[phone] * left. He woul d like a new rx * PHARMACY: [facility] * called in for a year if possible. SUBJECTIVE: ALLERGIES/SENSITIVITIES... NKA 01/02/03 CURRENT MEDICATIONS... NORVASC 2.5MG, VIAGRA 50MG 01/02/03 PERTINENT PAST HISTORY... 01/02/03 WEIGHT: ASSESSMENT: viagra PLAN: DISPOSITION: NO DISPOSITION GIVEN CALL BY CARLOS SELF 01/02/2003 11:41AM [phone] ADDENDUM: <> 01/02/2003 02:59PM by MARYJO MCGILL [employer] REPRESENTATIVE: Per Dr Rodgers:Viagra 100mg q prn 36 with 1 yr of rfs.//Pharm called and pt notified. ING CHEF Phone Note, Clinician - 11/30/2002 12:01 AM CDT Phone Note signed by Sanford Romano MD at 01/08/03 2046 Author: Clinician Phone Note Service: (none) Author Type: Resource Filed: 05/17/03 0000 Note Time: 11/30/02 0001 Status: Signed Hospice Coordinator: Clinician Phone Note (Resource) - TREATING PROVIDER: SANFORD ROMANO SUBJECTIVE: * HOME PHONE:[phone] * ALLERGIES/SENSITIVITIES... CURRENT MEDICATIONS... PERTINENT PAST HISTORY... ASSESSMENT: Rx refill DISPOSITION: NO DISPOSITION GIVEN PLAN: [facility] [place] COMMENTS... Per for ; ok for Viagra 50mg tablets x2 refills. This was faxed to [facility] at [phone] by Maura Mcmillan CALL BY LEAH OROZCO 11/30/2002 11:50AM ADDENDUM: Jose Antonio Joel MBBS - 10/25/2002 12:01 AM CDT Progress Notes signed by JOYCE Stover at 07/18/03 1135 Author: Jose Antonio Rodgers MD Service: (none) Author Type: Physician Filed: 08/28/10 1432 Note Time: 10/25/02 0001 Status: Signed Hospice Coordinator: Jose Antonio Rodgers MD (Physician) NAME: MO SOTELO MR: [id number] ACCT: [id number] VISIT: [id number] DICTATING CLINICIAN: JOSE ANTONIO RODGERS MD JOB: [id number] CLINIC PROGRESS NOTE DATE OF VISIT: 10/25/2002 SUBJECTIVE: Patient is here for a followup on his blood pressure. At present, he denies any chest pain, any shortness of breath, any nausea or vomiting, or any abdominal pain. He has brought his blood pressure recordings which showed systolic around 121-120 and diastolics around 70-80. CURRENT MEDICATIONS: Include testosterone injections, aspirin two daily, Viagra p.r.n., Norvasc 2.5 q. daily. ADR/ALLERGIES: NO KNOWN DRUG ALLERGIES. SOCIAL HISTORY: Nonsmoker. OBJECTIVE: VS: BP: 122/80. P: 74. Wt: 211.6. HEENT: JVD is negative. LUNGS: Clear to auscultation bilaterally. HEART: S1, S2 audible. No S3, no S4. No gallop. ABDOMEN: Soft, nontender. EXTREMITIES: No ankle edema. ASSESSMENT: 1. Hypertension, very well controlled. 2. Patient was also complaining of sore throat. Throat was examined and there was mild redness. He also complains of grandson having a strep throat. A rapid strep was done to rule out any strep throat. Patient was explained that if the strep throat comes out positive, we will call in the prescription for amoxicillin. PLAN: See assessment. TT: CT: MOIRA:[id number] C: 10/26/02 05:16 DOCUMENT: [id number] ING CHEF Phone Note, Clinician - 10/10/2002 12:01 AM CDT Phone Note filed by Clinician Phone Note at 08/26/10 1125 Author: Clinician Phone Note Service: (none) Author Type: Resource Filed: 08/26/10 1125 Note Time: 10/10/02 0001 Status: Signed Hospice Coordinator: Clinician Phone Note (Resource) - TREATING PROVIDER: JOSE ANTONIO RODGERS - PHARMACY: [phone] [facility] * HOME PHONE:[phone] * SUBJECTIVE: PATIENT COMPLAINS OF... rx refill ALLERGIES/SENSITIVITIES... CURRENT MEDICATIONS... PERTINENT PAST HISTORY... ASSESSMENT: rx refill DISPOSITION: NON-URGENT PLAN: Verbalizes understanding and agrees with phone care recommendation MISC COMMENTS... Per Dr Rodgers-refill request for Norvasc 2.5 mg, 1 po qd, qty 30, appro bharath x3. Request fax[facility] to [facility] @ [phone] on . CALL BY MARYJO CHILD 10/10/2002 03:03PM ADDENDUM: ING CHEF documented in this encounter Plan of Treatment Not on filedocumented as of this encounter Visit Diagnoses Not on filedocumented in this encounter
--- OUTSIDE RECORDS SUMMARY | 2022-03-19 02:56 | XMS_ITS | Encounter Summary ---
:1940 Author Organization [facility] Address [address] [place] [address] Care Team Providers Name Role Phone Unavailable Primary Care Provider Unavailable Encounter Details Date Type Department Care Team Description 12/03/2004 Nursing Visit [facility] Jose Antonio Carolina, JOYCE Medicine [address] [facility] [address] [place] [address] [place] [address] [phone] Social History Tobacco Use Types Packs/Day Years Used Date Smoking Tobacco: Never Assessed Sex Assigned at Date Recorded Not on file documented as of this encounter Last Filed Vital Signs Vital Sign Reading Time Taken Comments Blood Pressure 132/80 12/03/2004 10:37 AM CDT Pulse 64 12/03/2004 10:37 AM CDT Temperature - - Respiratory Rate - - Oxygen Saturation - - Inhaled Oxygen Concentration - - Weight - - Height - - Body Mass Index - - documented in this encounter Plan of Treatment Not on filedocumented as of this encounter Visit Diagnoses Not on filedocumented in this encounter
--- OUTSIDE RECORDS SUMMARY | 2022-03-19 02:56 | XMS_ITS | Encounter Summary ---
:1940 Author Organization [facility] Address [address] [place] [address] Care Team Providers Name Role Phone Unavailable Primary Care Provider Unavailable Encounter Details Date Type Department Care Team Description 07/25/2004 Nursing Visit [facility] Jose Antonio Carolina, JORDANABS Medicine [address] [address] [place] [address] [phone] Social History Tobacco Use Types Packs/Day Years Used Date Smoking Tobacco: Never Assessed Sex Assigned at Date Recorded Not on file documented as of this encounter Plan of Treatment Not on filedocumented as of this encounter Visit Diagnoses Not on filedocumented in this encounter
--- OUTSIDE RECORDS SUMMARY | 2022-03-19 02:56 | XMS_ITS | Encounter Summary ---
:1940 Author Organization [facility] Address [address] [place] [address] Care Team Providers Name Role Phone Unavailable Primary Care Provider Unavailable Encounter Details Date Type Department Care Team Description 03/26/2004 Nursing Visit [facility] [place] [address] [facility] [address] [place] [address] [place] [phone] Social History Tobacco Use Types Packs/Day Years Used Date Smoking Tobacco: Never Assessed Sex Assigned at Date Recorded Not on file documented as of this encounter Plan of Treatment Not on filedocumented as of this encounter Visit Diagnoses Not on filedocumented in this encounter
--- OUTSIDE RECORDS SUMMARY | 2022-03-19 02:56 | XMS_ITS | Encounter Summary ---
:1940 Author Organization [facility] Address [address] [place] [address] Care Team Providers Name Role Phone Unavailable Primary Care Provider Unavailable Encounter Details Date Type Department Care Team Description 06/27/2004 Office Visit [facility] Jose Antonio Rodgers MBBS [facility] [address] [place] [address] [phone] Social History Tobacco Use Types Packs/Day Years Used Date Smoking Tobacco: Never Assessed Sex Assigned at Date Recorded Not on file documented as of this encounter Progress Notes Jose Antonio Rodgers MBBS - 06/27/2004 12:01 AM CST Progress Notes signed by JOYCE Stover at 11/27/04 1428 Author: Jose Antonio Rodgers MD Service: (none) Author Type: Physician Filed: 08/29/10 0305 Note Time: 06/27/04 0001 Status: Signed Weight Calculator: Jose Antonio Rodgers MD (Physician) NAME: ALEXANDR SOTELO MR: [id number] ACCT: [id number] VISIT: [id number] DICTATING CLINICIAN: JOSE ANTONIO RODGERS MD JOB: [id number] CLINIC PROGRESS NOTE DATE OF VISIT: 06/27/2004 SUBJECTIVE: A 64-year-old white gentleman came in for a physical. At present he denies any chest pains, any shortness of breath, any nausea, vomiting, or any abdominal pain. CURRENT MEDICATIONS: Reviewed online. ADR/ALLERGIES: REVIEWED ONLINE. PAST MEDICAL HISTORY: As mentioned. Negative for any heart, lung, or kidney problems, however, positive for hypertension. FAMILY HISTORY: Consistent with diabetes and high blood pressure and hypothyroidism. SOCIAL HISTORY: Nonsmoker. Quit smoking five years ago. OBJECTIVE: VS: BP: 150/80. P: 76. Ht: 5 ft 9 in. Wt: 213.8. HEENT: Conjunctivae nonicteric, nonhyperemic. LUNGS: Clear to auscultation bilaterally. HEART: S1, S2 audible, no S3 no S4, no gallop. ABDOMEN: Soft, nontender. EXTREMITIES: No edema. NEUROLOGICAL: Nonfocal. RECTAL: Hemoccult negative. Prostate not enlarged. ASSESSMENT: 1. Physical done. Health maintenance guidelines discussed with the patient, including diet and exercise. Fasting lipid profile, fasting blood sugar, CBC obtained, along with a PSA. 2. Multiple skin tags removed around the neck area. Regarding multiple moles, patient was scheduled to see a store team leader. Also, there was a growth near his left eye, on the medial side. PLAN: See assessment. MOIRA:[id number] C: 06/28/04 17:59 DOCUMENT: [id number] documented in this encounter Plan of Treatment Not on filedocumented as of this encounter Visit Diagnoses Not on filedocumented in this encounter
--- OUTSIDE RECORDS SUMMARY | 2022-03-19 02:56 | XMS_ITS | Encounter Summary ---
:1940 Author Organization [facility] Address [address] [place] [address] Care Team Providers Name Role Phone Unavailable Primary Care Provider Unavailable Encounter Details Date Type Department Care Team Description 07/23/2004 Office [place] [address] [address] [place] [address] [place] [address] [phone] (Wo rk) Social History Tobacco Use Types Packs/Day Years Used Date Smoking Tobacco: Never Assessed Sex Assigned at Date Recorded Not on file documented as of this encounter Progress Notes Gretta Saravia MD - 07/23/2004 12:01 AM CST Progress Notes signed by Gretta Saravia MD at 07/24/04 1553 Author: Gretta Saravia MD Service: (none) Author Type: Physician Filed: 08/29/10 0335 Note Time: 07/23/04 0001 Status: Signed Departmental Shipping Clerk: Gretta Saravia MD (Physician) NAME: ALEXANDR SOTELO MR: [id number] ACCT: [id number] VISIT: [id number] DICTATING CLINICIAN: GRETTA SARAVIA MD JOB: [id number] CLINIC PROGRESS NOTE DATE OF VISIT: 07/23/2004 SUBJECTIVE: : 1940. Cggqs-wre-xvda-old gentleman new to clinic comes in for evaluation of a number of concerns. He is sent by Dr. Carolina for evaluation. Patient denies a history of skin cancer. He denies having moles removed. He notes that there are a number of growths that have been a little dark in color along his hairline, and another one near his left nose that has been bothersome and growing. He denies bleeding of these lesions. MEDICATIONS: Reviewed. ADR/ALLERGIES: NO KNOWN DRUG ALLERGIES. FAMILY HISTORY: Negative for melanoma. OBJECTIVE: He is a pleasant gentleman in no distress. Evaluation skin of the face, scalp, neck, anteroposterior trunk, both upper extremities including palpation of the skin and examination of fingernails reveal face shows a number of flat topped stuckon appearing papules especially along the left yazidism. Also on the left nasal bridge near the medial canthal margin is a flattop brown papule with a red papule within it. Difficult to tell if this is a collision lesion of a seborrheic keratosis, hemangioma, or a basal cell. He has a number of flattop stuckon appearing papules scattered on the trunk, but nothing else worrisome for skin cancer. ASSESSMENT: Possible basal cell skin cancer, left medial canthus. Irritated seborrheic keratosis, left yazidism, and multiple seborrheic keratoses and solar lentigines. PLAN: I recommended shave biopsy from the lesion on the left medial canthus, and after verbal consent was obtained, the risk of shave biopsy including infection, bleeding, and scar were discussed, the site was anesthetized with 1 percent Xylocaine with epinephrine. Shave biopsied. Aluminum chloride used for hemostasis. Polysporin ointment and Band-Aid applied. Wound care instructions given. I will contact him with the report when available in approximately seven to ten days, and followup will be based on the report. The irritated seborrheic keratosis was treated with liquid nitrogen for two freeze-thaw cycles. Sequelae discussed. I reassured him regarding other seborrheic keratoses and solar lentigines. MMB:[id number] C: 07/23/04 16:52 DOCUMENT: [id number] [employer] documented in this encounter Plan of Treatment Not on filedocumented as of this encounter Visit Diagnoses Not on filedocumented in this encounter
[2022-03-19] MEDS: GI COCKTAIL (VISC LIDO/ANTACID) 30 ML PO (02:57)
--- OUTSIDE RECORDS SUMMARY | 2022-03-19 02:57 | XMS_ITS | Encounter Summary ---
:1940 Author Organization [facility] Address [address] [place] [address] Care Team Providers Name Role Phone Unavailable Primary Care Provider Unavailable Encounter Details Date Type Department Care Team Description 09/11/2002 PN Conversion Only [facility] [address] [place] [address] Social History Tobacco Use Types Packs/Day Years Used Date Smoking Tobacco: Never Assessed Sex Assigned at Date Recorded Not on file documented as of this encounter Progress Notes Phone Note, Clinician - 07/18/2002 12:01 AM CST Phone Note signed by JOYCE Stover at 11/23/02 1055 Author: Clinician Phone Note Service: (none) Author Type: Resource Filed: 09/11/02 0000 Note Time: 07/18/02 0001 Status: Signed Seat Coverer: Clinician Phone Note (Resource) - TREATING PROVIDER: JOSE ANTONIO CAROLINA SUBJECTIVE: * HOME PHONE:[phone] * ALLERGIES/SENSITIVITIES... CURRENT MEDICATIONS... PERTINENT PAST HISTORY... ASSESSMENT: Rx refill DISPOSITION: NO DISPOSITION GIVEN PLAN: [facility] [place] Per for ; ok for Viagra 50MG Tablet #6 with no additional refills. This was faxed to [facility] at [phone] by Lacy Pierson CALL BY LEAH OROZCO 07/18/2002 12:24PM ADDENDUM: TRON BEAM MACHINE WELDER SETTER Jose Antonio Carolina MBBS - 07/18/2002 12:01 AM CST Progress Notes signed by JOYCE Stover at 11/23/02 1056 Author: Jose Antonio Carolina MD Service: (none) Author Type: Physician Filed: 08/28/10 1257 Note Time: 07/18/02 0001 Status: Signed Seat Coverer: Jose Antonio Carolina MD (Physician) NAME: MO DALEY MR: [id number] ACCT: [id number] VISIT: [id number] DICTATING CLINICIAN: JOSE ANTONIO CAROLINA MD JOB: [id number] CLINIC PROGRESS NOTE DATE OF VISIT: 07/18/2002 SUBJECTIVE: : 1940. [id number]. Mo is here for a follow-up on his blood pressure. At present he denies any chest pain, shortness of breath, any nausea, vomiting or any abdominal pain or any headache or blurring of vision. He has brought his blood pressure recordings with him and with Norvasc 2.5 mg patient has been doing pretty well with his blood pressure with diastolic and systolic readings staying below 138/89. MEDICATIONS: Norvasc 2.5 q.d. ADR/ALLERGIES: NONE. SOCIAL HISTORY: Nonsmoker. OBJECTIVE: VS: BP: 116/80. P: 96. Wt: 216. HEENT: 41.00 is negative. LUNGS: Clear to auscultation bilaterally. HEART: S1, S2 audible. No S3. No S4. ABDOMEN: Soft, nontender. ASSESSMENT: Hypertension, fairly well controlled. PLAN: Patient was asked to follow-up within three months. TT: CT: MOIRA:[id number] C: 07/19/02 06:39 DOCUMENT: [id number] Jose Antonio Carolina MBBS - 06/20/2002 12:01 AM CST Progress Notes signed by at 06/25/02 1537 Author: Jose Antonio Carolina MD Service: (none) Author Type: Physician Filed: 08/28/10 1223 Note Time: 06/20/02 0001 Status: Signed Seat Coverer: Jose Antonio Carolina MD (Physician) IMPRESSION: Hypertension. SUBJECTIVE: : 1940. CHIEF COMPLAINT: Follow up on his high blood pressure. HISTORY OF PRESENTING COMPLAINT: A 62-year-old white gentleman is pleasant, is here for followup on his blood pressure. When he came on his last visit, he was found to have high blood pressure, so he was given a card to fill out and check his blood pressures as an outpatient on a random basis. He has checked his blood pressure and brought the card in, which shows both the systolic and diastolic blood pressures are high. Patient at present denies any chest pains, any shortness of breath, any nausea, vomiting or any abdominal pain. OBJECTIVE: VS: BP: 154/100. P: 68. Wt: 221.5. HEENT: JVD is negative. LUNGS: Clear to auscultation. HEART: S1, S2 audible. No S3, no S4. ABDOMEN: Soft, nontender. EXTREMITIES: No edema. ASSESSMENT: Hypertension. PLAN: Patient was started on Norvasc 2.5 mg q.d. Side effects explained. We also want to get a fasting lipid profile today. 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 TT: CT: MOIRA:[id number] C: 06/20/02 12:41 DOCUMENT: [id number] TRON BEAM MACHINE WELDER SETTER Jose Antonio Carolina MBBS - 06/09/2002 12:01 AM CST Progress Notes signed by at 06/25/02 3761 Author: Jose Antonio Carolina MD Service: (none) Author Type: Physician Filed: 08/28/10 1208 Note Time: 06/09/02 0001 Status: Signed Seat Coverer: Jose Antonio Carolina MD (Physician) IMPRESSION: Borderline hypertension. The patient was also given a script so that he can come here for his fasting lipid profile. SUBJECTIVE: Chief Complaint: Follow up on his high cholesterol. 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 The patient was not fasting, so we were not able to check his cholesterol today. At present, he denies any chest pain, any shortness of breath, any headache, any nausea, vomiting or abdominal pain. PAST MEDICAL HISTORY: Consistent with: 1. Positive for borderline hypertension. 2. Hypogonadism and erectile dysfunction. CURRENT MEDICATIONS: Include testosterone injections. The patient does not take testosterone gel anymore, and Viagra p.r.n. SOCIAL HISTORY: Nonsmoker. 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 SCREENING HISTORY: The patient had his last sigmoidoscope in 10/23/97. It has been less than a year since he has checked his last PSA. OBJECTIVE: VS: BP: 144/92. P: 80. Wt: 225.3. HEENT: JVD is negative. LUNGS: Clear. HEART: S1 and S2, audible. No murmurs, no gallops. ABDOMEN: Soft, nontender. Bowel sounds positive. EXTREMITIES: No ankle edema. ASSESSMENT: 1. Borderline hypertension. Very mild hypertension. The patient was given a card so that he can take it and check his blood pressure as an outpatient. I told him to check it once daily, and to follow up with me in 3-4 days. 2. The patient was also given a script so that he can come here for his fasting lipid profile. Discussion about his screening workup was also done regarding his flex sig and also his PSA. PLAN: See assessment. TT: CT: MOIRA:[id number] C: 06/09/02 14:04 DOCUMENT: [id number] TRON BEAM MACHINE WELDER SETTER Conversion, [facility] - 03/15/2002 12:01 AM CST Phone Note signed by at 03/15/02 0906 Author: Yeny Samuels Service: (none) Author Type: (none) Filed: 08/28/10 1008 Note Time: 03/15/02 0001 Status: Signed Seat Coverer: Yeny Samuels IMPRESSION: regarding Viagra refill SUBJECTIVE: ALLERGIES/SENSITIVITIES... * HOME PHONE:[phone] * CURRENT MEDICATIONS... PERTINENT PAST HISTORY... ASSESSMENT: regarding Viagra refill DISPOSITION: NO DISPOSITION GIVEN PLAN: [facility] [place]... Per Dr. Romano please call in Viagra 50mg #6 with 3 refills. Info called to [facility] [phone]. CALL BY KATHY SUTHERLAND LPN 03/15/2002 09:05AM ADDENDUM: [employer]ON BE[employer] MACHINE WELDER SETTER Toi Alegria MD - 02/06/2002 12:01 AM CDT Progress Notes signed by at 05/27/02 1851 Author: Toi Alegria MD Service: (none) Author Type: Physician Filed: 08/28/10 0914 Note Time: 02/06/02 0001 Status: Signed Seat Coverer: Toi Alegria MD (Physician) IMPRESSION: Large inflamed sebaceous cyst, anterior neck. SUBJECTIVE: The patient is a 61-year-old male whom I was asked to see in consultation by Dr. Rod for removal of a large sebaceous cyst on patient's anterior neck area. Patient states that it started out very small, but has grown over the months. OBJECTIVE: Examination reveals an enlarged and inflamed sebaceous cyst, anterior neck area. After gaining patient's consent and under local Xylocaine with epinephrine, the lesion was completely excised after prepping and draping out the area. Hemostasis was obtained using electrocautery, and the incision was closed with interrupted 4-0 Vicryl sutures and Steri-Strips with tincture of benzoin. Dressings were applied. ASSESSMENT: Large inflamed sebaceous cyst, anterior neck. PLAN: Patient was instructed in care of wound. He will return on a p.r.n. basis. TT: CT: CC: JAILENE ROD MD [facility]:[id number] C: DOCUMENT: [id number] TR[employer] MACHINE WELDER SETTER Conversion, [facility] - 02/06/2002 12:01 AM CDT Progress Notes signed by at 07/01/02 0001 Author: Yeny Samuels Service: (none) Author Type: (none) Filed: 08/28/10 0914 Note Time: 02/06/022016 Status: Signed Seat Coverer: Yeny Samuels IMPRESSION: Sebaceous cyst. SUBJECTIVE: Mo is here today for a cyst on his chest, around his clavicle. It has been there for a few years. It slowly has been growing, and now it has been causing some pressure and discomfort off and on. Otherwise he has been feeling fine. No other significant medical problems. PAST MEDICAL HISTORY: Positive for borderline blood pressure, slight obesity, hypogonadism, and erectile dysfunction from hypogonadism. MEDICATIONS: Testosterone gel, Viagra p.r.n. SOCIAL HISTORY: He does not smoke. OBJECTIVE: VS: BP: 130/88. T: Afebrile. LUNGS: Clear to auscultation. HEART: S1, S2, plus zero. Local examination reveals a 2 x 2 cm sebaceous type cyst beneath the skin, below the medial end of the clavicle, not fixed to the bone, easily movable, slightly uncomfortable, but nontender. ASSESSMENT: Sebaceous cyst. PLAN: Setup with surgery to remove. TT: CT: [facility]:[id number] C: DOCUMENT: [id number] [employer]ON [employer] MACH[employer] WELDER SETTER Conversion, [facility] - 12/21/2001 12:01 AM CDT Progress Notes signed by at 05/27/02 1843 Author: Yeny Conversion Service: (none) Author Type: (none) Filed: 08/28/10 0810 Note Time: 12/21/012016 Status: Signed Seat Coverer: Yeny Conversion IMPRESSION: Well physical. Slight obesity. Hypogonadism on testosterone replacement. Erectile dysfunction. SUBJECTIVE: Mo is here today for history and physical. Does not have any active complaints at this time. Wondering if he can try testosterone gel/cream except as a shot every month as he has to come in for that every month. PAST MEDICAL HISTORY: Positive for borderline blood pressure in the past, slight obesity, hypogonadism and erectile dysfunction from that. PAST SURGICAL HISTORY: Negative. MEDICATIONS: Testosterone shots every month and will be changing to gel now to see how it works; Viagra p.r.n. with good results and no side-effects. ADR/ALLERGIES: NO KNOWN DRUG ALLERGIES. SOCIAL HISTORY: Used to smoke but quit about 21 years ago. Used to smoke 3/4 of a pack per day for 30 years. Alcohol occasionally. Caffeine: 4-5 per day. FAMILY HISTORY: Positive for brother having coronary artery disease at age 68. Sister had cancer of the liver. REVIEW OF SYSTEMS: Generally feels good. Complete review of systems is within normal limits. OBJECTIVE: VS/GEN: BP: 130/88. P: 84. R: 14. Wt: 220 lb. HEENT: Negative. NECK: No JVD. No lymphadenopathy. No carotid bruits LUNGS: Clear to auscultation. No rales, rhonchi or crackles. CV: Heart S1, S2, plus 0. No murmurs, rubs or gallops. ABD: Slightly obese, soft, nontender. No organomegaly. Bowel sounds normally heard. BACK: No tenderness. No deformity. EXTREMITIES: No edema, cyanosis or clubbing. Pulses are good and equal in all four extremities. RECTAL: Guaiac negative stool. Prostate: Smooth and not enlarged. NEURO: Cranial nerves are intact. 5/5 sensation intact. Reflexes are 2+ and symmetrical. ASSESSMENT: 1. Well physical. 2. Slight obesity. 3. Hypogonadism on testosterone replacement. 4. Erectile dysfunction improved with testosterone replacement and p.r.n. Viagra. PLAN: 1. Health maintenance guidelines discussed with the patient. 2. Update tetanus shot today. 3. Given Androgel 1% gel to be applied five grams once a day in the morning to upper arm or abdomen. Precautions discussed with the patient. 4. If that does not work will go back to the shot. 5. Check EKG, fasting lipids, UA. 6 Check TSH, blood sugar, hemoglobin, creatinine, ALT, potassium. 7. Will followup on tests. TT: CT: [facility]:[id number] C: DOCUMENT: [id number] TRON BEAM MACHINE WELDER SETTER Conversion, [facility] - 06/09/2001 12:01 AM CST Phone Note signed by at 06/09/01 0917 Author: Yeny Samuels Service: (none) Author Type: (none) Filed: 08/28/10 0341 Note Time: 06/09/012016 Status: Signed Seat Coverer: Yeny Samuels IMPRESSION: lotrisone refill SUBJECTIVE: ALLERGIES/SENSITIVITIES... * HOME PHONE:[phone] * CURRENT MEDICATIONS... * WORK PHONE:[phone] * PERTINENT PAST HISTORY... ASSESSMENT: lotrisone refill DISPOSITION: NO DISPOSITION GIVEN PLAN: [facility] [place] Called in refill auth per for lotrisone cream 15gm to [facility]. CALL BY FELIPA LORENZ 06/09/2001 09:47AM ADDENDUM: TRON [employer] MACHINE WELDER SETTER Conversion, [facility] - 09/28/2000 12:01 AM CDT Progress Notes signed by at 07/01/02 0001 Author: Yeny Samuels Service: (none) Author Type: (none) Filed: 08/27/10 2237 Note Time: 09/28/00 0001 Status: Signed Seat Coverer: Yeny Samuels IMPRESSION: Tick bite to right foot. Cellulitis. SUBJECTIVE: This is a 60-year-old male who states approximately five days ago he pulled, what he states, was a wood tick between his right great toe and second toe. The patient now complains of redness, swelling at the site, along with some itching. He denies any fever, body aches, arthralgias, bull's eye rashes. He is current on his last tetanus shot. All other rest of review of systems is negative. MEDICATIONS: None. ALLERGIES: NONE. OBJECTIVE: BP: 140/82. T: 98.1. P: 72. R: 16. A well-developed, well-nourished male in no acute distress, alert and cooperative. In general, the patient looks well. He is alert and oriented to person, place and time. The patient's skin is warm and dry. No rashes or erythema is noted. On the patient's right foot, on the top of the foot near the right great toe and second toe, the patient has a raised, red, what appears to be a welt at the site, with clear drainage seen. There is no tenderness to palpation. No sign of induration. No foreign bodies are noted. No signs of dried skin. ASSESSMENT: 1. Tick bite to right foot. 2. Cellulitis. PLAN: The patient is started on Augmentin 875 b.i.d. for the next 10 days. He is to warm soaks to the area and keep the area covered. If he starts to have high fever, arthralgias or odd rashes, the patient should be reseen immediately. LAG:[id number] C: DOCUMENT: [id number] SCHEDULED RESOURCE: INDY GIBSON TRON BEAM MACHINE WELDER SETTER Conversion, [facility] - 09/14/2000 12:01 AM CDT Progress Notes signed by at 10/12/01 1738 Author: Yeny Samuels Service: (none) Author Type: (none) Filed: 08/27/10 2221 Note Time: 09/14/00 0001 Status: Signed Seat Coverer: Yeny Samuels IMPRESSION: Obesity. Minor hypertension. Erectile dysfunction. Patient here for physical today. SUBJECTIVE: The patient is here today for physical and does not have any active complaints at this time. PAST MEDICAL HISTORY: Positive for obesity, history of mild hyperlipidemia in the past, history of erectile dysfunction. Had low testosterone level in the past. Has been on testosterone shot every month from Dr. Cooper. PAST SURGICAL HISTORY: None. MEDICATIONS: Testosterone shot every month, Viagra p.r.n. ALLERGIES: NO KNOWN DRUG ALLERGIES. SOCIAL HISTORY: Used to smoke but quit 20 years ago. He used to smoke three quarters of a pack per day for 30 years. Alcohol only occasionally. Caffeine five per day. FAMILY HISTORY: Positive for a brother having coronary disease at age 68. Sister had cancer of the liver. REVIEW OF SYSTEMS: Positive for off and on knee pain, mild, particularly when he walks a little more. Very infrequent heartburn, maybe once a month, if he eats something heavy. Rest of the complete review of systems within normal limits. OBJECTIVE: BP: 140/90. P: 80. R: 16. Wt: 226 pounds. HEENT: No abnormality detected. NECK: No JVD. No lymphadenopathy, no carotid bruit or thyromegaly. LUNGS: Clear to auscultation. No wheezing, rhonchi, or crackles. HEART: S1, S2, plus zero. No murmurs or gallops. ABDOMEN: Obese, soft, and nontender. No organomegaly. Bowel sounds normal. BACK: No tenderness. No deformity. RECTAL EXAMINATION: Prostate not enlarged and smooth. Guaiac negative. EXTREMITIES: No edema, cyanosis, or clubbing. NEUROLOGIC EXAMINATION: Grossly intact with no focal deficits. ASSESSMENT: 1. Obesity. 2. Minor hypertension. 3. Erectile dysfunction. 4. Patient here for physical today. PLAN: Diet, weight loss and exercise discussed with the patient as that will help the high blood pressure. If his cholesterol were to be slightly higher, it would help that too. Definitely weight loss will help him to feel overall better. Check TSH, BUN, creatinine, and electrolytes. Check testosterone level. Check blood sugar and EKG today. Health maintenance guideline discussed with the patient. [facility]:[id number] C: DOCUMENT: [id number] Henrique Campos MD - 09/12/1999 12:01 AM CDT Progress Notes signed by at 09/23/99 3870 Author: Henrique Cooper MD Service: (none) Author Type: (none) Filed: 08/27/10 1621 Note Time: 09/12/99 0001 Status: Signed Seat Coverer: Yeny Abril IMPRESSION: For the most part, he is a pretty healthy cody. SUBJECTIVE: Mr. Daley is a 59-year-old gentleman who is here for a physical exam. He gets testosterone shots for testicular failure. Otherwise, he has no medicines. He has never been hospitalized. He drinks about five to six cups of coffee per day. No pop. No milk; does not like it. Very little alcohol. He quit smoking a little better than a year ago. He exercises by being active at a mildly physically demanding job and at home. Mother in her 80s; had some strokes, may have had a heart attack. She had high blood pressure. No cancer or for diabetes. Dad at age 86 from a fractured hip and complications thereof. Paternal aunts and uncles all lived to be elderly; they are all gone. Maternal aunts and uncles are all quite elderly and with the exception of an aunt who is still 90. He has a sister who has had coronary stenting and angioplasty. He has a brother who in an armed conflict and a sister who of cancer relatively young. There are a total of 11 of them, so the other seven are alive and well. REVIEW OF SYSTEMS: He has some occasional pyrosis. He has no dysphagia or odynophagia. No change in bowel habits, melena, hematochezia, hematemesis. He has nocturia about once per night, otherwise, he empties well. No urgency, frequency, hesitancy or hematuria. No chest pain, orthopnea, PND, pedal edema. He has an itchy anal area and itchy ears. He has no bone or joint problems, no diplopia, amaurosis symptoms, weakness, numbness, incoordination. The rest of the complete review of systems is negative. OBJECTIVE: Ht: 71 inches Wt: 227 pounds BP: 130/86 He carries his weight predominantly in his abdomen. HEENT: Atraumatic. PERRL. Fundi, discs are sharp and flat. A-V ratio is 2:3. No exudates or hemorrhages. TMs, nose and pharynx are normal. NECK: Supple. Thyroid is normal. Large back and spine are nontender. LUNGS: Clear to auscultation and percussion. CARDIAC: Rhythm is regular. There is a normal S1 and S2. No murmurs or gallops. No JVD at 20 degrees. Lymphatic exam, cervical, inguinal and axillary are negative. ABDOMEN: Rotund, soft, nontender. No masses or hepatosplenomegaly. : Normal circumcised male. Normal testes. There is a little bit of panniculus that supports his genitalia. He has no hernias. Testicles are normal. RECTAL: Shows a small prostate. No nodularity. No masses in the rectum. EXTREMITIES: Without edema or clubbing. SKIN: He has multiple keratoses across his face, dry skin in his ears, and he has a fungal rash around his anal area and because of the obesity of his buttocks, he is actually moist there. Cranial nerves II through XII are intact. Gait, yozrum-[id number], rjev-xv-pehi, Romberg, strength and reflexes are normal. ASSESSMENT: For the most part, he is a pretty healthy cody. His lipids in the past have been less than ideal consistent with the truncal obesity he has, so that is a problem. The itchiness is due to a fungal rash and moisture there. We talked about powder and some Lotrisone cream b.i.d. until the rash is gone plus an additional week. The itchiness in the ears requires some sweet oil. He is up to date otherwise on health maintenance. Will pickup a cholesterol fractionation, glucose, ALT, creatinine and a hemoglobin and notify him of the results by mail, but is going to have to be done fasting, and he is not fasting today. He will do that in the future. PLAN: See Assessment. 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 SUBJECTIVE: Mr. Daley is here with some areas on his face he wants me to look at and also one on his leg. I have frozen some keratoses for him in the past. OBJECTIVE: On exam, he has three keratoses on his face, all of them kind of waxy, seborrheic. The one near his nose is most raised. The other two are relatively small. They are all frozen with liquid nitrogen using a freeze-thaw cycle. He has more of a stucco keratosis on his left thigh which is also frozen in a freeze-thaw cycle. ASSESSMENT: Keratoses. PLAN: He was instructed in how to take care of them. Follow up as needed. We talked about health maintenance. He is up-to-date on everything. It would be reasonable for him to come in for a health update, which should take about 20 minutes, in the reasonably near future. DJW:[id number] C: DOCUMENT: [id number] Indy Dodd PA-C - 02/26/1999 12:01 AM CDT Progress Notes signed by at 08/24/00 1151 Author: Indy Gibson PA-C Service: (none) Author Type: Resource Filed: 08/27/10 1310 Note Time: 02/26/99 0001 Status: Signed Seat Coverer: Indy Gibson PA-C (Resource) IMPRESSION: Bronchitis. Bronchospasm. SUBJECTIVE: N/A OBJECTIVE: N/A ASSESSMENT: Bronchitis. Bronchospasm. PLAN: The patient is put on Zithromax Konstantin to take as directed and albuterol inhaler two puffs every four hours while awake for the next five days. Symptomatic care was discussed. LAG:[id number] C: DOCUMENT: [id number] Henrique Campos MD - 12/13/1998 12:01 AM CDT Progress Notes signed by at 01/02/99 1427 Author: Henrique Cooper MD Service: (none) Author Type: (none) Filed: 08/27/10 1155 Note Time: 12/13/98 0001 Status: Signed Seat Coverer: [facility] Conversion IMPRESSION: Keratoses. SUBJECTIVE: Please see written note. OBJECTIVE: N/A ASSESSMENT: Keratoses. PLAN: N/A NIGELW:[id number] C: DOCUMENT: [id number] Henrique Campos MD - 08/28/1998 12:01 AM CDT Progress Notes signed by at 09/11/98 1851 Author: Henrique Cooper MD Service: (none) Author Type: (none) Filed: 08/27/10 1008 Note Time: 08/28/98 0001 Status: Signed Seat Coverer: Yeny Conversion IMPRESSION: Myofascial pain, soft tissue. SUBJECTIVE: Mr. Daley is here with pain that is in the area of his right elbow, more on the volar aspect of the elbow or flexion aspect on the extension. This happened when he was lifting something. It happened about six weeks ago; it just has not gotten better. He notices more pain if he is holding his arm in a static position, pulling upward with the biceps, as opposed to actually going through a range of motion with the biceps. He is not all that point tender, it is just when he uses it. He did not feel anything pop or hear anything pop. OBJECTIVE: His weight is 118. Blood pressure is 140/90. I can reproduce a little bit of this discomfort with twisting motions, and a little bit with extension of the wrist and a straight elbow, but majority of it with static pulling up, not really flexing the elbow but holding it semiflexed and then lifting straight up. There is no discoloration or bruising. Pulses are good. An x ray, to my reading, does not show any signs of fracture. ASSESSMENT: Myofascial pain, soft tissue. PLAN: Ice 20 minutes b.i.d. Have him start doing some lightweight curls, both wrists curls and full arm curls, starting with 2 pounds, working up to 50 repetitions and then go up to 5-6 pounds. Ice the area for 20 minutes b.i.d. and use Sulindac 200 mg b.i.d. b.i.d. with food, warned about GI upset. If he is not significantly better in a month, he will come back. If he is better he can stop the Sulindac a week after he is better. [id number] C: DOCUMENT: [id number] Henrique Campos MD - 10/23/1997 12:01 AM CDT Progress Notes signed by at 11/06/97 1907 Author: Henrique Cooper MD Service: (none) Author Type: (none) Filed: 08/27/10 0459 Note Time: 10/23/97 0001 Status: Signed Seat Coverer: Yeny Samuels IMPRESSION: Negative screening test for colon cancer. SUBJECTIVE: Mo Daley is here for routine flexible sigmoidoscopy. He has not quit smoking. Wants to recheck his lipids today. OBJECTIVE: The flexible sigmoidoscope is passed to 60 cm. The mucosa is normal. There are no polyps, masses, fibroids or abnormalities. Minimal hemorrhoids. ASSESSMENT: Negative screening test for colon cancer. PLAN: Assuming no change in indications on his part or change in screening recommendations, next flexible sigmoidoscopy can be in five years. We will recheck cholesterol fractionation here today. Also asked him to set a date to quit smoking. He has a prescription for Zyban to try that. sts Henrique Campos MD - 09/20/1997 12:01 AM CDT Progress Notes signed by at 10/05/97 9278 Author: Henrique Cooper MD Service: (none) Author Type: (none) Filed: 08/27/10 0429 Note Time: 09/20/97 0001 Status: Signed Seat Coverer: Yeny Conversion IMPRESSION: Testicular failure with some impotence not totally corrected by the injections. SUBJECTIVE: Mo Daley is a 57-year-old gentleman who is here about relative impotence. 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 The bottom line is that he is just a little disappointed in the hardness of his erections. He wonders if he could use Viagra on top of that. He uses no nitrates. He has no known allergies. He goes quite a long time without the testosterone injections. I talked to him and tried to get a feel on whether or not he wanted to use them both or whether he would be interested in just one and not the other. OBJECTIVE: Wt: 213 lb. BP: 140/90. ASSESSMENT: Testicular failure with some impotence not totally corrected by the injections. PLAN: We will go ahead and prescribe Viagra 50 mg one hour before coitus. We will also give him an injection of 200 mg of Depo- Testosterone today. He will let me know how he is doing. The first prescription is for five pills with a refill of 10. We talked about the blue-green color discrimination problems. stq Henrique Campos MD - 06/19/1997 12:01 AM CST Progress Notes signed by at 06/22/972003 Author: Henrique Cooper MD Service: (none) Author Type: (none) Filed: 08/27/10 0304 Note Time: 06/19/97 0001 Status: Signed Seat Coverer: Yeny Conversion IMPRESSION: Testicular failure with good response to testosterone. Health maintenance. Smoker. Perianal itching. SUBJECTIVE: Mr. Mo Daley is a 57-year-old smoker who is here for a physical examination. I refer you to the note of July 31, 1994, regarding past habits, past admissions, and family history. He has had a sister who of brain cancer, a brother who is stable. Four to five cups of coffee per day. Very little pop. No milk. Less than one alcoholic beverage per week. 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 One-half pack cigarettes a day. He is wondering about Zyban and whether or not he needs a tetanus - it turns out it does not. He does need a flexible sigmoidoscopy. The testosterone seems to be helping him. He is wondering if there is another dosage for him that he could use instead of the injectable, and he is also wondering if there is not another dosage for him to consider injecting himself at home. REVIEW OF SYSTEMS: Positive for nocturia times, one otherwise the review of systems is totally negative with the exception of anal itching. He does admit that he probably leaks a little bit. He has an enlarged hemorrhoid. OBJECTIVE: BP: 134/90. Wt: 211 pounds. Ht: 72 inches tall. HENT: Atraumatic. PERRL. Fundi: Disks are sharp and flat. Error ratio is 2:3, no exudates or hemorrhages. TMs, nose, pharynx are unremarkable. Neck is supple. Thyroid is not enlarged. Back and spine are nontender. Lungs are clear to auscultation and percussion. Cardiac rhythm is regular. Normal S1, S2 without any murmurs or gallops. Abdomen is soft, nontender. No masses or hepatosplenomegaly. : Normal male. No hernias. Testicles are normal. Rectal exam: He has no irritation or redness around the perianal area. His skin is appropriate in thickness. He has an external hemorrhoid, tight anal area. Rectal exam is otherwise unremarkable. Prostate is small. Extremities are without edema or clubbing. On his skin he does have a few keratoses, particularly across his left nipple and there is also a nevus there but it looks benign. Neuro exam was intact including hearing, cranial nerves II- XII, gait, finger-nose, [id number], Romberg. ASSESSMENT: 1. Testicular failure with good response to testosterone. Questions about dosage for him. We will go ahead and refer him to one of the urologists for their opinion, if they feel it is the best then think about self instruction so he can give it at home. 2. Health maintenance. Needs a flex. He is up-to-date on everything else. 3. Smoker. Talked about Darrell. We will get that started. Encouraged him to quit smoking. Quit smoking tips given. 4. As far as the perianal area, I would recommend some powder. Also the use of zinc oxide or A&D ointment as a moisture barrier. Some Westcort cream to use sparingly up to b.i.d. Use of wet wipes. 5. Pickup a hemoglobin, cholesterol fractionation, glucose, and creatinine. Notify him of results of labs by mail. PLAN: N/A. sto Electronically signed by [facility] at 03/24/2016 9:07 PM Henrique Campos MD - 10/05/1995 12:01 AM CDT Progress Notes signed by at 10/12/951814 Author: Henrique Cooper MD Service: (none) Author Type: (none) Filed: 08/26/101943 Note Time: 10/05/95 0001 Status: Signed Seat Coverer: [facility] Conversion IMPRESSION: SKIN CYSTS SUBJECTIVE: Mo Daley is a 55-year-old gentleman who is here today for his testosterone shot. That does seem to help. He also wants me to look at a couple of areas on his skin. One on his groin, one on his face. OBJECTIVE: On his face he has a seborrheic keratosis. On his groin he has a 3 mm skin cyst that is attached to the level of the skin. It is rounded, spongy, fairly mobile otherwise. ASSESSMENT: Skin cysts. PLAN: Reassurance. [id number] Electronically signed by [facility] at 03/24/2016 8:45 PM Henrique Campos MD - 04/09/1995 12:01 AM CST Progress Notes signed by at 04/13/951812 Author: Henrique Cooper MD Service: (none) Author Type: (none) Filed: 08/26/10 180 Note Time: 04/09/95 0001 Status: Signed Seat Coverer: Yeny Conversion IMPRESSION: Upper respiratory infection. SUBJECTIVE: Mo Daley is a 54-year-old gentleman who is here about difficulties with erections. It turns out that this is more of a slow onset. He thought that the hormones initially helped quite a bit. He did have a normal testosterone, but a decreased free testosterone, so he has been treated with 200 mcg of DEPO- Testosterone monthly. He had a real bad cold the last time and he did not think that the shot worked as well. His desire is there, he said that he is able to have an adequate erection for intercourse, he is able to ejaculate in an appropriately timed manner. He has also had some upper respiratory infection symptoms recently. OBJECTIVE: BP: 132/90. WT: 219 pounds. On examination his nose is congested, pharynx is unremarkable other than post nasal drip. Tympanic membranes are clear. Lungs are clear to auscultation and percussion. He has no adenopathy. ASSESSMENT: Upper respiratory infection. PLAN: 1) Will treat upper respiratory infection with some Entex LA. 2) As far as the testosterone shots it is not really clear what is going on there. The more I talked to him the more I get the impression that he just does not feel like he is 20 anymore, real nebulous with his symptoms, he just does not think they are right. I will increase the DEPO-testosterone to q. 3 weeks and give him three shots and see if this will make a difference as far as he is feeling. If he is not better I would like him to see Dr. [facility]. It may be appropriate that he be taken off of the testosterone. He also quit smoking. He is not sedentary, but he is overweight. He had a low HDL last time, we will slat pickler a cholesterol HDL and notify him of the results of that lab by mail. ncss/jmh TRON BEAM MACHINE WELDER SETTER Mita Covarrubias MD - 03/11/1995 12:01 AM CST Progress Notes signed by Mita Covarrubias MD at 04/13/95 0036 Author: Mita Covarrubias MD Service: (none) Author Type: Physician Filed: 08/26/10 4683 Note Time: 03/11/95 0001 Status: Signed Seat Coverer: Mita Covarrubias MD (Physician) IMPRESSION: No dictation required. SUBJECTIVE: N/A OBJECTIVE: N/A ASSESSMENT: N/A PLAN: N/A ncss/kda TRON BEAM MACHINE WELDER SETTER documented in this encounter Plan of Treatment Not on filedocumented as of this encounter Procedures Procedure Name Priority Date/Time Associated Comments Diagnosis HIV ANTIBODY Routine 06/20/2002 9:26 AM Results f or this ELECTRON [employer] MACHINE WELDER SETTER procedure are i n the results section. LIPID PANEL AND Routine 06/20/2002 9:26 AM Result s for this DIRECT LDL(IF NEEDED) ELECTRON [employer] MACHINE WELDER SETTER proced ure are in the results section. ALT (SGPT) Routine 06/20/2002 9:26 AM Results f or this ELECT[employer] MACHINE WELDER SETTER procedure are i n the results section. AST Routine 06/20/2002 9:26 AM Results f or this [employer]ACH[employer] WELDER SETTER procedure are i n the results section. BILIRUBIN, TOTAL Routine 06/20/2002 9:26 AM Resul ts for this E[employer]ACH[employer] WELDER SETTER procedure are i n the results section. BILI - DIRECT Routine 06/20/2002 9:26 AM Results for this [employer] W[employer]DER SETTER procedure are i n the results section. ALKALINE PHOSPHATASE, Routine 06/20/2002 9:26 AM Results for this TOTAL [employer] W[employer] SETTER procedure are i n the results section. ALBUMIN Routine 06/20/2002 9:26 AM Results f or this [employer] SETTER procedure are i n the results section. GLUCOSE Routine 12/21/2001 10:50 Results for this AM CDT procedure are i n the results section. THYROID STIMULATING Routine 12/21/2001 10:50 Resu lts for this HORMONE AM CDT procedure are i n the results section. URINALYSIS COMPLETE Routine 12/21/2001 10:50 Resu lts for this HOLD CULTURE AM CDT procedure are i n the results section. LIPID PANEL AND Routine 12/21/2001 10:50 Results for this DIRECT LDL(IF NEEDED) AM CDT proced ure are in the results section. CREATININE / GFR Routine 12/21/2001 10:50 Results for this AM CDT procedure are i n the results section. PROSTATIC SPECIFIC Routine 12/21/2001 10:50 Resul ts for this ANTIGEN(SCREEN) AM CDT procedure ar e in the results section. HEMOGLOBIN, BLOOD Routine 12/21/2001 10:50 Result s for this AM CDT procedure are i n the results section. ALT (SGPT) Routine 12/21/2001 10:50 Results for this AM CDT procedure are i n the results section. AST Routine 12/21/2001 10:50 Results for this AM CDT procedure are i n the results section. POTASSIUM Routine 12/21/2001 10:50 Results for this AM CDT procedure are i n the results section. ELECTROLYTES (NA, K, Routine 09/14/2000 9:57 AM R esults for this CL, BICARB) CDT procedure are i n the results section. TESTOSTERONE TOTAL Routine 09/14/2000 9:57 AM Res ults for this ADULT MALES CDT procedure are i n the results section. GLUCOSE Routine 09/14/2000 9:57 AM Results f or this CDT procedure are i n the results section. THYROID STIMULATING Routine 09/14/2000 9:57 AM Re sults for this HORMONE CDT procedure are i n the results section. LIPID PROFILE= Routine 09/14/2000 9:57 AM Results for this CHOL,TRIG,HDL,LDL CDT procedure are in the results section. CREATININE / GFR Routine 09/14/2000 9:57 AM Resul ts for this CDT procedure are i n the results section. BUN Routine 09/14/2000 9:57 AM Results f or this CDT procedure are i n the results section. GLUCOSE Routine 09/17/1999 8:30 AM Results f or this CDT procedure are i n the results section. LIPID PANEL AND Routine 09/17/1999 8:30 AM Result s for this DIRECT LDL(IF NEEDED) CDT proced ure are in the results section. CREATININE / GFR Routine 09/17/1999 8:30 AM Resul ts for this CDT procedure are i n the results section. HEMOGLOBIN, BLOOD Routine 09/17/1999 8:30 AM Resu lts for this CDT procedure are i n the results section. ALT (SGPT) Routine 09/17/1999 8:30 AM Results f or this CDT procedure are i n the results section. XR ELBOW Routine 08/28/1998 4:45 PM Results f or this CDT procedure are i n the results section. LIPID PANEL AND Routine 10/23/1997 11:01 Results for this DIRECT LDL(IF NEEDED) AM CDT proced ure are in the results section. GLUCOSE Routine 06/19/1997 3:55 PM Results f or this [employer] SETTER procedure are i n the results section. LIPID PANEL AND Routine 06/19/1997 3:55 PM Result s for this DIRECT LDL(IF NEEDED) E[employer] WELDER SETTER proced ure are in the results section. CREATININE / GFR Routine 06/19/1997 3:55 PM Resul ts for this ELECT[employer] WELDER SETTER procedure are i n the results section. HEMOGLOBIN, BLOOD Routine 06/19/1997 3:55 PM Resu lts for this E[employer] WELDER SETTER procedure are i n the results section. ANC RESULT CONVERSION Routine 12/18/1991 1:54 PM Results for this DEFAULT ORDER CDT procedure are in the results section. ANC RESULT CONVERSION Routine 10/16/1991 2:27 PM Results for this DEFAULT ORDER CDT procedure are in the results section. ANC RESULT CONVERSION Routine 10/05/1991 9:45 AM Results for this DEFAULT ORDER CDT procedure are in the results section. documented in this encounter Results Albumin (06/20/2002 9:26 AM ELECTRON BEAM MACHINE WELDER SETTER) athologist Signature Albumin 3.9 3.0 - 5.0 HP CONVERSION g/dL Specimen (Source) Anatomical Collection Method Collection Time Re ceived Time Location / / Volume Laterality 06/20/2002 9:26 AM ELECTRON BEAM MACHINE WELDER SETTER [facility] Performing Organization Address City/State/ZIP Code Phon e Number HP CONVERSION Alkaline Phosphatase, Total (06/20/2002 9:26 AM ELECTRON BEAM MACHINE WELDER SETTER) athologist Signature Alk Phos 100 50 - 136 U/L HP CONVERSION Specimen (Source) Anatomical Collection Method Collection Time Re ceived Time Location / / Volume Laterality 06/20/2002 9:26 AM ELECTRON BEAM MACHINE WELDER SETTER [place] Performing Organization Address City/State/ZIP Code Phon e Number HP CONVERSION ALT (SGPT) (06/20/2002 9:26 AM ELECTRON BEAM MACHINE WELDER SETTER) [facility] gist Method Time Signature Alanine 36 0 - 65 HP CONVERSION Aminotransferase U/L Specimen (Source) Anatomical Collection Method Collection Time Re ceived Time Location / / Volume Laterality 06/20/2002 9:26 AM ELECTRON BEAM MACHINE WELDER SETTER [facility] Performing Organization Address City/State/ZIP Code Phon e Number HP CONVERSION AST (06/20/2002 9:26 AM ELECTRON BEAM MACHINE WELDER SETTER) [facility] gist Method Time Signature Aspartate 13 0 - 45 HP CONVERSION Aminotransferase U/L Specimen (Source) Anatomical Collection Method Collection Time Re ceived Time Location / / Volume Laterality 06/20/2002 9:26 AM ELECTRON [employer] MACHINE WELDER SETTER [place] Performing Organization Address City/State/ZIP Code Phon e Number HP CONVERSION Bilirubin, Direct (06/20/2002 9:26 AM ELECTRON BEAM MACHINE WELDER SETTER) athologist Signature Bilirubin, 0.1 0.0 - 0.4 HP CONVERSION Direct mg/dL Specimen (Source) Anatomical Collection Method Collection Time Re ceived Time Location / / Volume Laterality 06/20/2002 9:26 AM ELECTRON BE[employer] MACHINE WELDER SETTER [facility] Performing Organization Address City/State/ZIP Code Phon e Number HP CONVERSION Bilirubin, Total (06/20/2002 9:26 AM ELECTRON BEAM MACHINE WELDER SETTER) athologist Signature Bilirubin Total 0.4 0.2 - 1.2 HP CONVERSION mg/dL Specimen (Source) Anatomical Collection Method Collection Time Re ceived Time Location / / Volume Laterality 06/20/2002 9:26 AM ELECTRON BEAM MACHINE WELDER SETTER [place] Performing Organization Address City/State/ZIP Code Phon e Number HP CONVERSION (ABNORMAL) Lipid Panel and Direct LDL(If Needed) (06/20/2002 9:26 AM ELECTRON BEAM MACHINE WELDER SETTER) [facility] Method Time Signature Length Of Fast 14.0 Hours HP CONVERSION Cholesterol/HDL 5.3 No normal HP CONVERSION Ratio Screen range Cholesterol 207 (H) 125 - 199 HP CONVERSION mg/dL HDL Cholesterol 39 (L) 40 - 60 HP CONVERSION mg/dL Triglycerides 122 0 - 199 HP CONVERSION mg/dL LDL Calculated 144 (H) 66 - 129 HP CONVERSION mg/dL Comment: Specimen (Source) Anatomical Collection Method Collection Time Re ceived Time Location / / Volume Laterality 06/20/2002 9:26 AM ELECTRON BE[employer] MACHINE WELDER SETTER [place] Performing Organization Address City/State/ZIP Code Phon e Number HP CONVERSION HIV Antibody (06/20/2002 9:26 AM ELECTRON BEAM MACHINE WELDER SETTER) athologist Signature HIV 1/HIV 2 Non Reac Non Reac HP CONVERSION Specimen (Source) Anatomical Collection Method Collection Time Re ceived Time Location / / Volume Laterality 06/20/2002 9:26 AM ELECTRON BE[employer] MACHINE WELDER SETTER [facility] Performing Organization Address City/[facility]/ZIP [facility] Phon e Number HP CONVERSION (ABNORMAL) Urinalysis Complete Hold Culture (12/21/2001 10:50 AM CDT) [facility] Method Time Signature U Specific 1.020 1.005 - 25 HP CONVERSION [place] pH Urine 6.5 4.5 - 7.5 HP CONVERSION Protein Urine Negative Neg-Trac HP CONVERSION Glucose, Negative Neg-Trac HP CONVERSION Qualitative U Ketones Negative Negative HP CONVERSION U BILI Negative Negative HP CONVERSION Blood Urine Negative Negative HP CONVERSION Nitrite Urine Negative Negative HP CONVERSION Leukocyte Negative Negative HP CONVERSION Esterase Urine Urobilinogen Negative 0.2 - 1.0 HP CONVERSION Urine White Blood Negative 0 - 3 HP CONVERSION Cells Urine Red Blood Cells Negative 0 - 2 HP CONVERSION Urine Epithelial Cells Few Few /HPF HP CONVERSION Bacteria Urine Rare (A) None HP CONVERSION Urine Mucus Occassnl None HP CONVERSION Hold For Yes No normal HP CONVERSION Culture? range Specimen (Source) Anatomical Collection Method Collection Time Re ceived Time Location / / Volume Laterality 12/21/2001 10:50 AM CDT Ir Radiologist [facility] Performing Organization Address City/[facility] Phon e Number HP CONVERSION (ABNORMAL) Lipid Panel and Direct LDL(If Needed) (12/21/2001 10:50 AM CDT) [facility] Method Time Signature Length Of Fast 14.0 Hours HP CONVERSION Cholesterol/HDL 5.1 No normal HP CONVERSION Ratio Screen range Cholesterol 219 (HH) 125 - 199 HP CONVERSION mg/dL HDL Cholesterol 43 40 - 60 HP CONVERSION mg/dL Triglycerides 143 0 - 199 HP CONVERSION mg/dL XCALC LDL 147 (HH) 66 - 129 HP CONVERSION (Original mg/dL [place]) Comment: Specimen (Source) Anatomical Collection Method Collection Time Re ceived Time Location / / Volume Laterality 12/21/2001 10:50 AM CDT Ir Radiologist [facility] Performing Organization Address City/[facility]/ZIP Code Phon e Number HP CONVERSION Potassium (12/21/2001 10:50 AM CDT) athologist Signature Potassium 4.9 3.5 - 5.2 HP CONVERSION meq/L Specimen (Source) Anatomical Collection Method Collection Time Re ceived Time Location / / Volume Laterality 12/21/2001 10:50 AM CDT Ir Radiologist [facility] Performing Organization Address City/State/ZIP Code Phon e Number HP CONVERSION Glucose (12/21/2001 10:50 AM CDT) P athologist Signature Length Of Fast 14.0 Hours HP CONVERSION Lab Glucose 109 60 - 109 HP CONVERSION mg/dL Specimen (Source) Anatomical Collection Method Collection Time Re ceived Time Location / / Volume Laterality 12/21/2001 10:50 AM CDT Ir Radiologist [facility] Performing Organization Address City/State/ZIP Code Phon e Number HP CONVERSION Creatinine / GFR (12/21/2001 10:50 AM CDT) athologist Signature Creatinine 1.0 0.5 - 1.5 HP CONVERSION Serum mg/dL Specimen (Source) Anatomical Collection Method Collection Time Re ceived Time Location / / Volume Laterality 12/21/2001 10:50 AM CDT Ir Radiologist [facility]iology [facility]1 Performing Organization Address City/[facility]/ZIP [facility] Phon e Number HP CONVERSION AST (12/21/2001 10:50 AM CDT) [facility] gist Method Time Signature Aspartate 20 0 - 45 HP CONVERSION Aminotransferase U/L Specimen (Source) Anatomical Collection Method Collection Time Re ceived Time Location / / Volume Laterality 12/21/2001 10:50 AM CDT Ir Radiologist [facility]iology [facility] Performing Organization Address City/[facility] Phon e Number HP CONVERSION ALT (SGPT) (12/21/2001 10:50 AM CDT) [facility] gist Method Time Signature Alanine 42 0 - 65 HP CONVERSION Aminotransferase U/L Specimen (Source) Anatomical Collection Method Collection Time Re ceived Time Location / / Volume Laterality 12/21/2001 10:50 AM CDT Ir Radiologist [facility] Performing Organization Address City/State/ZIP Code Phon e Number HP CONVERSION Prostatic Specific Antigen (Screen) (12/21/2001 10:50 AM CDT) athologist Signature Prostate 0.7 0.0 - 4.0 HP CONVERSION Specific ng/mL Antigen Specimen (Source) Anatomical Collection Method Collection Time Re ceived Time Location / / Volume Laterality 12/21/2001 10:50 AM CDT Ir Radiologist [facility]iology [facility]1 Performing Organization Address City/[facility]/ZIP [facility] Phon e Number HP CONVERSION Thyroid Stimulating Hormone (12/21/2001 10:50 AM CDT) athologist Signature Thyroid 1.57 0.20 - HP CONVERSION Stimulating 5.50 Hormone uIU/mL Specimen (Source) Anatomical Collection Method Collection Time Re ceived Time Location / / Volume Laterality 12/21/2001 10:50 AM CDT Ir Radiologist [facility]iology [facility] Performing Organization Address City/State/ZIP [facility] Phon e Number HP CONVERSION (ABNORMAL) Hemoglobin, Blood (12/21/2001 10:50 AM CDT) athologist Signature Hemoglobin 17.8 (HH) 13.4 - HP CONVERSION 17.5 gm/dL Specimen (Source) Anatomical Collection Method Collection Time Re ceived Time Location / / Volume Laterality 12/21/2001 10:50 AM CDT Ir Radiologist [facility]iology [facility]1 Performing Organization Address [facility] Phon e Number HP CONVERSION Electrolytes (NA, K, CL, Bicarb) (09/14/2000 9:57 AM CDT) athologist Signature Sodium 140 137 - 147 HP CONVERSION meq/L Potassium 4.6 3.5 - 5.2 HP CONVERSION meq/L Chloride 103 98 - 110 HP CONVERSION meq/L Bicarbonate 30 23 - 33 HP CONVERSION mmol/L Specimen (Source) Anatomical Collection Method Collection Time Re ceived Time Location / / Volume Laterality 09/14/2000 9:57 AM CDT Ir Radiologist [facility] Performing Organization Address City/[facility] Phon e Number HP CONVERSION BUN (09/14/2000 9:57 AM CDT) athologist Signature Blood Urea 14 5 - 26 HP CONVERSION Nitrogen mg/dL Specimen (Source) Anatomical Collection Method Collection Time Re ceived Time Location / / Volume Laterality 09/14/2000 9:57 AM CDT Ir Radiologist [facility] Performing Organization Address City/[facility] [facility] Phon e Number HP CONVERSION Creatinine / GFR (09/14/2000 9:57 AM CDT) athologist Signature Creatinine 1.0 0.5 - 1.5 HP CONVERSION Serum mg/dL Specimen (Source) Anatomical Collection Method Collection Time Re ceived Time Location / / Volume Laterality 09/14/2000 9:57 AM CDT Ir Radiologist Radiology LAB_1 Performing Organization Address City/State/ZIP Code Phon e Number HP CONVERSION (ABNORMAL) Glucose (09/14/2000 9:57 AM CDT) athologist Signature Lab Glucose 119 (HH) 60 - 109 HP CONVERSION mg/dL Specimen (Source) Anatomical Collection Method Collection Time Re ceived Time Location / / Volume Laterality 09/14/2000 9:57 AM CDT Ir Radiologist Radiology LAB_1 Performing Organization Address City/[facility]/ZIP Code Phon e Number HP CONVERSION Lipid Profile= Chol,Trig,HDL,LDL (09/14/2000 9:57 AM CDT) [facility] gist Method Time Signature Cholesterol/HDL 4.7 No normal HP CONVERSION Ratio Screen range Triglycerides 141 0 - 250 HP CONVERSION mg/dL HDL Cholesterol 39 30 - 70 HP CONVERSION mg/dL LDL Calculated 115 66 - 129 HP CONVERSION mg/dL Cholesterol 182 125 - 199 HP CONVERSION mg/dL Specimen (Source) Anatomical Collection Method Collection Time Re ceived Time Location / / Volume Laterality 09/14/2000 9:57 AM CDT Ir Radiologist Radiology LAB_1 Performing Organization Address City/State/ZIP Code Phon e Number HP CONVERSION (ABNORMAL) Testosterone, Total Adult Males (09/14/2000 9:57 AM CDT) [facility] gist Method Time Signature Testosterone 184 (LL) 225 - 825 HP CONVERSION Level ng/dL Specimen (Source) Anatomical Collection Method Collection Time Re ceived Time Location / / Volume Laterality 09/14/2000 9:57 AM CDT Ir Radiologist Radiology LAB_1 Performing Organization Address City/State/ZIP Code Phon e Number HP CONVERSION Thyroid Stimulating Hormone (09/14/2000 9:57 AM CDT) athologist Signature Thyroid 1.47 0.20 - HP CONVERSION Stimulating 5.50 Hormone uIU/mL Specimen (Source) Anatomical Collection Method Collection Time Re ceived Time Location / / Volume Laterality 09/14/2000 9:57 AM CDT Ir Radiologist Radiology LAB_1 Performing Organization Address City/State/ZIP Code Phon e Number HP CONVERSION ALT (SGPT) (09/17/1999 8:30 AM CDT) [facility] gist Method Time Signature Alanine 50 0 - 65 HP CONVERSION Aminotransferase U/L Specimen (Source) Anatomical Collection Method Collection Time Re ceived Time Location / / Volume Laterality 09/17/1999 8:30 AM CDT Henrique Cooper MD LAB_1 Performing Organization Address City/State/ZIP Code Phon e Number HP CONVERSION Creatinine / GFR (09/17/1999 8:30 AM CDT) athologist Signature Creatinine 1.0 0.5 - 1.5 HP CONVERSION Serum mg/dL Specimen (Source) Anatomical Collection Method Collection Time Re ceived Time Location / / Volume Laterality 09/17/1999 8:30 AM CDT Henrique Cooper MD LAB_1 Performing Organization Address [facility] Phon e Number HP CONVERSION Glucose (09/17/1999 8:30 AM CDT) athologist Signature Length Of Fast 11.5 8.0 - 24.0 HP CONVERSION Hours Lab Glucose 108 70 - 115 HP CONVERSION mg/dL Specimen (Source) Anatomical Collection Method Collection Time Re ceived Time Location / / Volume Laterality 09/17/1999 8:30 AM CDT Henrique Cooper MD LAB_1 Performing Organization Address [facility] Phon e Number HP CONVERSION (ABNORMAL) Lipid Panel and Direct LDL(If Needed) (09/17/1999 8:30 AM CDT) [facility] gist Method Time Signature Length Of Fast 11.5 8.0 - 24.0 HP CONVERSION Hours Cholesterol 213 (HH) 125 - 199 HP CONVERSION mg/dL HDL Cholesterol 41 30 - 70 HP CONVERSION mg/dL Cholesterol/HDL 5.2 No normal HP CONVERSION Ratio Screen range Triglycerides 114 0 - 250 HP CONVERSION mg/dL LDL Calculated 149 (HH) 66 - 129 HP CONVERSION mg/dL Comment: Fasting status adequate. Specimen (Source) Anatomical Collection Method Collection Time Re ceived Time Location / / Volume Laterality 09/17/1999 8:30 AM CDT Henrique Cooper MD LAB_1 Performing Organization Address City/State/ZIP Code Phon e Number HP CONVERSION Hemoglobin, Blood (09/17/1999 8:30 AM CDT) P athologist Signature Hemoglobin 17.3 13.4 - 17.5 HP CONVERSION gm/dL Specimen (Source) Anatomical Collection Method Collection Time Re ceived Time Location / / Volume Laterality 09/17/1999 8:30 AM CDT Henrique Cooper MD LAB_1 Performing Organization Address City/State/ZIP Code Phon e Number HP CONVERSION XR Elbow (08/28/1998 4:45 PM CDT) Anatomical Region Laterality Modality Other Specimen (Source) Anatomical Location Collection Method / Collectio n Time Received Time / Laterality Volume Narrative 08/28/1998 4:45 PM CDT CLINICAL DATA: ?PAIN WHEN LIFTING WITH PAL UP AT E LBOE FINDINGS: ?NO ACUTE BONE OR JOINT ABNORMALITY . ??THERE IS SOME FAINT ?INCREASED DENSITY AT THE LEVEL OF THE PROXIMAL ASPECT OF THE ?MEDIAL EPICONDYLE OF THE DISTAL HU MERUS WHICH MAY REPRESENT ?SOME EARLY SPUR FORMATION. ??OTHER HWANG NEGATIVE. TECH-ID : ? BJR TRANS-ID: ? LMA Procedure Note Sukhjinder Neri - 07/19/2016Formatting o f this note might be different from the original. CLINICAL DATA: PAIN WHEN LIFTING WITH PAL UP AT [place] FINDINGS: NO ACUTE BONE OR JOINT ABNORMALITY. THE RE IS SOME FAINT INCREASED DENSITY AT THE LEVEL OF THE P ROXIMAL ASPECT OF THE MEDIAL EPICONDYLE OF THE DISTAL HUMERUS WHICH MAY REPRESENT SOME EARLY SPUR FORMATION. OTHERWISE NE GATIVE. TECH-ID : BJR TRANS-ID: LMA Henrique Cooper MD RAD GD (ABNORMAL) Lipid Panel and Direct LDL(If Needed) (10/23/1997 11:01 AM CDT) Patholo gist Method Time Signature Length Of Fast 12.0 12.0 - HP CONVERSION 24.0 Hours Cholesterol 224 (HH) 125 - 199 HP CONVERSION mg/dL HDL Cholesterol 34 30 - 70 HP CONVERSION mg/dL Cholesterol/HDL 6.6 No normal HP CONVERSION Ratio Screen range Triglycerides 212 0 - 250 HP CONVERSION mg/dL LDL Calculated 148 (HH) 66 - 129 HP CONVERSION mg/dL Comment: Fasting status adequate. Specimen (Source) Anatomical Collection Method Collection Time Re ceived Time Location / / Volume Laterality 10/23/1997 11:01 AM CDT Henrique Cooper MD LAB_1 Performing Organization Address City/State/ZIP Code Phon e Number HP CONVERSION (ABNORMAL) Hemoglobin, Blood (06/19/1997 3:55 PM [employer] SETTER) athologist Signature Hemoglobin 17.6 (HH) 13.4 - HP CONVERSION 17.5 gm/dL Specimen (Source) Anatomical Collection Method Collection Time Re ceived Time Location / / Volume Laterality 06/19/1997 3:55 PM [employer]TER Henrique Cooper MD LAB_1 Performing Organization Address City/State/ZIP Code Phon e Number HP CONVERSION (ABNORMAL) Lipid Panel and Direct LDL(If Needed) (06/19/1997 3:55 PM ELECT[employer]ELDER SETTER) [facility] gist Method Time Signature Length Of Fast 16.0 12.0 - HP CONVERSION 24.0 Hours Cholesterol 229 (HH) 125 - 199 HP CONVERSION mg/dL HDL Cholesterol 35 30 - 70 HP CONVERSION mg/dL Cholesterol/HDL 6.5 No normal HP CONVERSION Ratio Screen range Triglycerides 226 0 - 250 HP CONVERSION mg/dL LDL Calculated 149 (HH) 66 - 129 HP CONVERSION mg/dL Comment: Fasting status adequate. Specimen (Source) Anatomical Collection Method Collection Time Re ceived Time Location / / Volume Laterality 06/19/1997 3:55 PM [employer]TER Henrique Cooper MD LAB_1 Performing Organization Address City/[facility]/ZIP Code Phon e Number HP CONVERSION Glucose (06/19/1997 3:55 PM ELECT[employer] SETTER) athologist Signature Lab Glucose 97 70 - 115 HP CONVERSION mg/dL Specimen (Source) Anatomical Collection Method Collection Time Re ceived Time Location / / Volume Laterality 06/19/1997 3:55 PM [employer]TER Henrique Cooper MD LAB_1 Performing Organization Address City/State/ZIP Code Phon e Number HP CONVERSION Creatinine / GFR (06/19/1997 3:55 PM [employer] SETTER) athologist Signature Creatinine 0.7 0.5 - 1.5 HP CONVERSION Serum mg/dL Specimen (Source) Anatomical Collection Method Collection Time Re ceived Time Location / / Volume Laterality 06/19/1997 3:55 PM [employer]TER Henrique Cooper MD LAB_1 Performing Organization Address City/State/ZIP Code Phon e Number HP CONVERSION Anc Result Conversion Default Order (12/18/1991 1:54 PM CDT) Anatomical Region Laterality Modality Other Specimen (Source) Anatomical Location Collection Method / Collectio n Time Received Time / Laterality Volume Impressions 12/18/1991 1:54 PM CDT : ?POSSIBLE LEFT NINTH RIB FRACTURE W ITH SOME ASSOCIATED LEFT ?BASE ATELECTASIS AND A SMALL AMOUN T OF PLEURAL FLUID. FINDINGS: ?A CORTICAL INTERRUPTION IS SEEN AT THE LATERAL ASPECT OF THE ?LEFT NINTH RIB WHICH MAY REPRESENT A FRACTURE. ??THIS IS NOT ?WELL CORRELATED ON THE RIB DETAIL VIEWS THIS AREA IS ?UNDEREXPOSED. ??THERE IS SOME BLUN TING OF THE COSTOPHRENIC ?ANGLE IN THIS AREA AND SOME LINEAR OPACITY WHICH MAY ?REPRESENT A SMALL AMOUNT OF PLEURA L FLUID AND/OR ATELECTASIS. ?THE REMAINDER OF THE LUNGS APPEAR CLEAR OF ACUTE INFILTRATE. ?A CALCIFICATION IS SEEN IN THE RIG HT UPPER LOBE CONSISTENT ?WITH A CALCIFIED GRANULOMA. TECH-ID : TRANS-ID: ? LAP Narrative 12/18/1991 1:54 PM CDT CLINICAL DATA: ?TRAUMA TO CHEST 12-15-91 Procedure Note Rickey Marsh MD - 07/19/2016Forma tting of this note might be different from the original. CLINICAL DATA: TRAUMA TO CHEST 12-15-91 IMPRESSION : POSSIBLE LEFT NINTH RIB FRACTURE WITH S OME ASSOCIATED LEFT BASE ATELECTASIS AND A SMALL AMOUNT OF PLEURAL FLUID. FINDINGS: A CORTICAL INTERRUPTION IS SEEN AT THE LATERAL ASPECT OF THE LEFT NINTH RIB WHICH MAY REPRESENT A FR ACTURE. THIS IS NOT WELL CORRELATED ON THE RIB DETAIL VIEWS THIS AREA IS UNDEREXPOSED. THERE IS SOME BLUNTING OF THE COSTOPHRENIC ANGLE IN THIS AREA AND SOME LINEAR OPAC ITY WHICH MAY REPRESENT A SMALL AMOUNT OF PLEURAL FLU ID AND/OR ATELECTASIS. THE REMAINDER OF THE LUNGS APPEAR CLEAR OF ACUTE INFILTRATE. A CALCIFICATION IS SEEN IN THE RIGHT UP PER LOBE CONSISTENT WITH A CALCIFIED GRANULOMA. TECH-ID : TRANS-ID: LAP Cortez Spivey RAD GD Anc Result Conversion Default Order (10/16/1991 2:27 PM CDT) Anatomical Region Laterality Modality Other Specimen (Source) Anatomical Location Collection Method / Collectio n Time Received Time / Laterality Volume Narrative 10/16/1991 2:27 PM CDT CLINICAL DATA: ?PER RADIOLOGIST FINDINGS: ?THERE IS A 6 MM WELL CIRCUMSCRIBED , HIGHLY CALCIFIED DENSITY ?LOCALIZED TO THE RIGHT APEX WHICH IS BETTER APPRECIATED IN ?THE APICAL VIEWS. ??THIS LESION IS MOST LIKELY CONSISTENT WITH ?A GRANULOMA. ??OTHERWISE REST OF T HE STUDY IS UNREMARKABLE. TECH-ID : TRANS-ID: ? LAP Procedure Note Osei Dumont - 07/19/2016 CLINICAL DATA: PER RADIOLOGIST FINDINGS: THERE IS A 6 MM WELL CIRCUMSCRIBED, HIG HLY CALCIFIED DENSITY LOCALIZED TO THE RIGHT APEX WHICH IS BE TTER APPRECIATED IN THE APICAL VIEWS. THIS LESION IS MOST L IKELY CONSISTENT WITH A GRANULOMA. OTHERWISE REST OF THE STUD Y IS UNREMARKABLE. TECH-ID : TRANS-ID: LAP Douglas Reis MD RAD GD Anc Result Conversion Default Order (10/05/1991 9:45 AM CDT) Anatomical Region Laterality Modality Other Specimen (Source) Anatomical Location Collection Method / Collectio n Time Received Time / Laterality Volume Impressions 10/05/1991 9:45 AM CDT : ?QUESTIONABLE NODULE, RIGHT APEX. ? ?RECOMMEND OBTAINING OLD ?FILMS. ??IF THEY ARE NOT AVAILABLE , RECOMMEND APICAL LORDOTIC ?VIEW. FINDINGS: ?THERE IS AN OVAL-SHAPED DENSITY [place] OJECTED JUST UNDER THE ?RIGHT CLAVICLE IN THE RIGHT APEX M EASURING 7 X 3 MM. ??THIS ?MAY BE WITHIN THE COSTOCHONDRAL JU NCTION OF THE FIRST RIB; ?HOWEVER, IT COULD REPRESENT A PULM ONARY DENSITY. ??AN APICAL ?LORDOTIC VIEW IS RECOMMENDED. ??IF OLD FILMS ARE AVAILABLE ?FROM OTHER CLINICS, THEY SHOULD BE OBTAINED. ??HILAR AREAS ARE ?NORMAL AND MEDIASTINUM IS NORMAL. ??CARDIOVASCULAR STRUCTURES ?ARE NORMAL. TECH-ID : ? 50 TRANS-ID: ? LAP Narrative 10/05/1991 9:45 AM CDT CLINICAL DATA: ?SMOKER Procedure Note Ray Stout MD - 07/19/2016Forma tting of this note might be different from the original. CLINICAL DATA: SMOKER IMPRESSION : QUESTIONABLE NODULE, RIGHT APEX. RECOMM END OBTAINING OLD FILMS. IF THEY ARE NOT AVAILABLE, RECOM MEND APICAL LORDOTIC VIEW. FINDINGS: THERE IS AN OVAL-SHAPED DENSITY PROJECT ED JUST UNDER THE RIGHT CLAVICLE IN THE RIGHT APEX MEASUR ING 7 X 3 MM. THIS MAY BE WITHIN THE COSTOCHONDRAL JUNCTIO N OF THE FIRST RIB; HOWEVER, IT COULD REPRESENT A PULMONARY DENSITY. AN APICAL LORDOTIC VIEW IS RECOMMENDED. IF OLD FI LMS ARE AVAILABLE FROM OTHER CLINICS, THEY SHOULD BE OBTA INED. HILAR AREAS ARE NORMAL AND MEDIASTINUM IS NORMAL. CARDI OVASCULAR STRUCTURES ARE NORMAL. TECH-ID : 50 TRANS-ID: LAP Douglas Reis MD RAD GD documented in this encounter Visit Diagnoses Not on filedocumented in this encounter
--- OUTSIDE RECORDS SUMMARY | 2022-03-19 02:57 | XMS_ITS | Encounter Summary ---
:1940 Author Organization [facility] Address [address] [place] [address] Care Team Providers Name Role Phone Unavailable Primary Care Provider Unavailable Encounter Details Date Type Department Care Team Description 08/27/1989 - 08/30/1989 Hospital Encounter EPISCOPAL CONVERSION Social History Tobacco Use Types Packs/Day Years Used Date Smoking Tobacco: Never Assessed Sex Assigned at Date Recorded Not on file documented as of this encounter Plan of Treatment Not on filedocumented as of this encounter Procedures Procedure Name Priority Date/Time Associated Comments Diagnosis CONVERSION DEFAULT Routine 08/26/1989 1:46 PM Res ults for this INTERFACE ORDER CDT procedure ar e in the results section. documented in this encounter Results Conversion Default Interface Order (08/26/1989 1:46 PM CDT) [facility] Method Time Signature Surgical See Detail No normal HP CONVERSION Pathology range Comment: ? Left forearm ? Excisional biopsy of skin lesion from the left forearm region: ? 1. 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 ? 2. 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 blood vessels in the papill eveline dermis and upper reticular dermis. COMMENT: ? This lesion is not a mole. ? Does the patient have any clinica l evidence of an allergic vasc Specimen (Source) Anatomical Collection Method Collection Time Re ceived Time Location / / Volume Laterality 08/26/1989 1:46 PM CDT Lab Conversion LAB_1 Performing Organization Address City/State/ZIP Code Phon e Number HP CONVERSION documented in this encounter Visit Diagnoses Not on filedocumented in this encounter
--- OUTSIDE RECORDS SUMMARY | 2022-03-19 02:57 | XMS_ITS | Encounter Summary ---
:1940 Author Organization [facility] Address [address] [place] [address] Care Team Providers Name Role Phone Unavailable Primary Care Provider Unavailable Encounter Details Date Type Department Care Team Description 10/31/2002 PN Conversion Only [place] Jose Antonio Rayo MBBS [id number] [facility] [address] [place] [address] [place] [address] (Wo rk) Social History Tobacco Use Types Packs/Day Years Used Date Smoking Tobacco: Never Assessed Sex Assigned at Date Recorded Not on file documented as of this encounter Plan of Treatment Not on filedocumented as of this encounter Procedures Procedure Name Priority Date/Time Associated Diagnosis Comme nts LIPID PANEL AND Routine 10/31/2002 10:07 AM Resul ts for this DIRECT LDL(IF CDT procedure are in NEEDED) the results section. documented in this encounter Results Lipid Panel and Direct LDL(If Needed) (10/31/2002 10:07 AM CDT) [facility] gist Method Time Signature Cholesterol/HDL 4.2 No normal HP CONVERSION Ratio Screen range Cholesterol 190 125 - 199 HP CONVERSION mg/dL HDL Cholesterol 45 40 - 60 HP CONVERSION mg/dL Triglycerides 127 0 - 199 HP CONVERSION mg/dL LDL Calculated 120 66 - 129 HP CONVERSION mg/dL Comment: Specimen (Source) Anatomical Collection Method Collection Time Re ceived Time Location / / Volume Laterality 10/31/2002 10:07 AM CDT Jose Antonio COOK LAB_1 Performing Organization Address City/State/ZIP Code Phon e Number HP CONVERSION documented in this encounter Visit Diagnoses Not on filedocumented in this encounter
--- OUTSIDE RECORDS SUMMARY | 2022-03-19 02:57 | XMS_ITS | Encounter Summary ---
:1940 Author Organization [facility] Address [address] [place] [address] Care Team Providers Name Role Phone Unavailable Primary Care Provider Unavailable Encounter Details Date Type Department Care Team Description 10/25/2002 PN Conversion Only [place]THE[place] CONVERSJose Antonio Jefferson MBBS [address] [employer] [address] [place] [address] [place] [address] (Wo rk) Social History Tobacco Use Types Packs/Day Years Used Date Smoking Tobacco: Never Assessed Sex Assigned at Date Recorded Not on file documented as of this encounter Plan of Treatment Not on filedocumented as of this encounter Procedures Procedure Name Priority Date/Time Associated Diagnosis Comme nts STREP GROUP A Routine 10/25/2002 4:15 PM Results for this ANTIGEN TEST CDT procedure are i n the results section. BETA STREP FOLLOWUP Routine 10/25/2002 4:15 PM Re sults for this CDT procedure are i n the results section. documented in this encounter Results Strep Group A Antigen Test (10/25/2002 4:15 PM CDT) Analysis Performed At Patho logist Time Signature Strep Group A Negative Negative HP CONVERSION Antigen Test Comment: Culture to follow. Specimen (Source) Anatomical Collection Method Collection Time Re ceived Time Location / / Volume Laterality 10/25/2002 4:15 PM CDT Jose Antonio COOK LAB_1 Performing Organization Address City/State/ZIP Code Phon e Number HP CONVERSION Beta Strep Followup (10/25/2002 4:15 PM CDT) P athologist Signature Strep Screen SEE TEXT HP CONVERSION Comment: Patient: ASHLEIGH, ALEXANDR E Rapid Strep Follow up Culture @ ? Collected: ??[id number] ??[id number] Source: Throat ?Processed: ??[id number] ??[id number] ? V Final Report ------ ?[id number] ??[id number] No beta hemolytic Strep group A isolated . @ = Rapid F/U Cult Performed at ??[address] [place], [place] ?[address] Specimen (Source) Anatomical Collection Method Collection Time Re ceived Time Location / / Volume Laterality 10/25/2002 4:15 PM CDT Jose Antonio COOK LAB_1 Performing Organization Address City/State/ZIP Code Phon e Number HP CONVERSION documented in this encounter Visit Diagnoses Not on filedocumented in this encounter
[2022-03-19 03:05] LABS: Albumin* 4.1 g/dL (3.3-5.0); Basophils Percent Auto 0.2 % (0.0-3.0); Eosinophils Percent Auto 1.1 % (0.0-7.0); Hematocrit 41.2 % (37.0-53.0); Hemoglobin* 13.2 gm/dL (13.5-17.5); Immature Granulocytes Pct Auto 0.7 %; Lymphocytes Percent Auto 9.4 % (20-44); Mean Corpuscular HGB Conc 32 gm/dL (32-36); Mean Corpuscular Hemoglobin 28 pg (26-34); Mean Corpuscular Volume 87 fL (80-100); Monocytes Percent Auto 6.9 % (0.0-11.0); Neutrophils Percent Auto 81.7 % (42.0-72.0); Platelet Count* 215 K/uL (140-440); RDW Coefficient of Variation % 14.5 % (11.5-15.5); Red Blood Count 4.75 m/uL (4.30-5.90); White Blood Count* 12.38 K/uL (4.50-11.00)
[2022-03-19 03:06] LABS: Chloride* 102 mmol/L (96-114); Potassium* 3.8 mmol/L (3.6-5.1); Slide Review Reflex No; Sodium* 139 mmol/L (135-149)
[2022-03-19 03:08] LABS: Amylase* 67 U/L (18-89); Bilirubin Total* 0.4 mg/dL (0.1-1.5); Blood Urea Nitrogen* 26 mg/dL (7-30); Carbon Dioxide* 28 mmol/L (20-32); Creatinine* 0.8 mg/dL (0.5-1.5); Est. Creatinine Clearance* 57.79; Estimated Glomerular Filt Rate 88 ml/min; Total Protein* 6.9 g/dL (6.0-8.3)
[2022-03-19 03:09] LABS: Alanine Aminotransferase* 24 U/L (4-50); Alkaline Phosphatase* 106 U/L (40-150); Aspartate Amino Transferase* 26 U/L (12-35); Glucose* 189 mg/dL (60-115); Lipase* 106 U/L (23-300); Magnesium* 1.8 mg/dL (1.5-2.6)
--- NOTE | 2022-03-19 03:24 | CRLHL7_ITS ---
For Patients: As a result of the Century Cures Act, medical imaging exams and procedure reports are released immediately into your electronic medical record. You may view this report before your referring provider. If you have questions, please contact your health care provider. INDICATION: Nausea and chest pain. COMPARISON: Plain film 19 March 2022. TECHNIQUE: 89 mL Isovue-370 IV contrast. FINDINGS: Chest: Normal aortic caliber. Central pulmonary arteries patent. Exam is not tailored for assessment of pulmonary embolus. Sternotomy. Coronary artery bypass graft changes. Calcified granuloma subpleural lateral left upper lobe. Mild reticular peripheral interstitial prominence suggesting some mild chronic fibrosis. No acute cardiopulmonary disease. No fracture. Abdomen and pelvis: Small layering calcified gallstones in the slightly enlarged gallbladder lumen. No wall thickening or inflammation. No ductal dilatation. No dilated or inflamed large or small bowel. Left colon diverticula. Normally enhancing kidneys. Prominent atherosclerosis of the non aneurysmal aorta. No significant bone lesion. IMPRESSION: 1. No significant acute findings to account for reported symptoms. 2. Cholelithiasis. 3. Colonic diverticulosis. 4. Moderately prominent diffuse atherosclerotic vascular calcification. Please note that all CT scans at this facility use dose modulation, iterative reconstruction, and/or weight-based dosing when appropriate to reduce radiation dose to as low as reasonably achievable. Dictated by Pawel Chacon MD @ 03/19/2022 5:17:06 AM (Electronically Signed)
--- NOTE | 2022-03-19 05:55 | CRLHL7_ITS ---
For Patients: As a result of the Century Cures Act, medical imaging exams and procedure reports are released immediately into your electronic medical record. You may view this report before your referring provider. If you have questions, please contact your health care provider. INDICATION: CHEST PAIN AND VOMITING, GALLSTONES SEEN ON CT TECHNIQUE: Ultrasound abdomen limited. Sonographic images of the gallbladder were obtained using taylor-scale and color Doppler images. COMPARISON: Same-day CT abdomen. FINDINGS: Gallbladder: The gallbladder is moderately distended. Multiple small stones are noted within the gallbladder body and neck. Gallbladder wall upper limits of normal measuring 3 mm. No pericholecystic fluid. Common bile duct: 6 mm. IMPRESSION: Cholelithiasis with moderately dilated gallbladder and upper limits of normal gallbladder wall without discrete evidence of acute cholecystitis. No biliary duct dilation. Dictated by Matthew Tovar MD @ 03/19/2022 8:34:59 AM (Electronically Signed)
[2022-03-19] MEDS: KETOROLAC 15 MG/ML inj IVP (05:57)
[2022-03-19 06:02] LABS: Troponin, Point-of-Care* 0.01 ng/ml (0.01-0.04)
--- NOTE | 2022-03-19 09:21 | ED.NURSE ---
dr menjivar was given connshane' #. she wanted an update. dr loera was wanting to know if a hida scan could be done today. imaging will call back.
--- NOTE | 2022-03-19 09:31 | CRLHL7_ITS ---
For Patients: As a result of the Century Cures Act, medical imaging exams and procedure reports are released immediately into your electronic medical record. You may view this report before your referring provider. If you have questions, please contact your health care provider. INDICATION: Nausea and vomiting. TECHNIQUE: 5.1 millicuries of technetium-99m labeled Mebrofenin has been given intravenously. Imaging has been performed to 50 minutes. Patient received 1.6 mcg of IV Kinevac and 30 additional minutes of imaging have been performed. FINDINGS: Uptake by the liver is within normal limits. The common bile duct is identified at 15 minutes. Small bowel activity is identified at 20 minutes. The gallbladder starts to fill at approximately 25 minutes which increases to 50 minutes. There is increasing small bowel activity at 50 minutes. Patient has been given CCK and there is an excellent response. The calculated gallbladder ejection fraction is 91 percent. Normal is greater than 35 percent. There is increasing small bowel activity identified after CCK IMPRESSION: Hepatobiliary scan is within normal limits. The cystic and common bile ducts are patent. Uptake by the liver is within normal limits. The calculated gallbladder ejection fraction is normal at 91 percent. Dictated by Douglas Breaux MD @ 03/19/2022 1:00:44 PM (Electronically Signed)
[2022-03-19] MEDS: 0.9 % SODIUM CHLORIDE 1000 ml 1,000 ML 125 ML IV (09:50)
--- NOTE | 2022-03-19 13:07 | ED.NURSE ---
[facility] is resting and ivf infusing at 125/hr. does complain of feeling cold. is sleeping-dozing some. awaiting results.
== END 2022-03-19 14:10 | disposition home or self-care (01) ==
PROVIDERS: Family Medicine; Emergency Provider Emergency Medicine; PCP Family Medicine
DX: R07.9 Chest pain, unspecified (principal); K80.20 Calculus of gallbladder without cholecystitis without obstruction
CPT/HCPCS: 36415; 71045; 71260; 74177; 76705; 78227; 80053; 82150; 83690; 83735; 85025; 93005; 94761; 96374; 96375; 99285; A9270; A9537; J1885; J2405; J2805; J7030; Q9967

== ENCOUNTER 2022-03-25 13:22 | Outpatient (CLI) | payer MEDICARE, BC, SELFPAY ==
--- OUTSIDE RECORDS SUMMARY | 2022-03-25 13:25 | XMS_ITS | Encounter Summary ---
:1940 Author Organization [facility] Address [address] [place] [address] Care Team Providers Name Role Phone Unavailable Primary Care Provider Unavailable Reason for Referral (Routine) - Closed Specialty Diagnoses / Procedures Referred By Contact Refer red To Contact Procedures Henrique Palacios MD Endoscopy, colon, diagnostic [address] [place], [place] [address] Referral ID Status Reason Start Date Expiration Date Visits Requ ested Visits Authorized [id number] Closed 03/23/2017 06/22/2018 1 1 N UP SUPERVISOR Reason for Visit (Routine) - Closed Specialty Diagnoses / Procedures Referred By Contact Refer red To Contact Procedures Henrique Palacios MD Endoscopy, colon, diagnostic [address] [place], [place] [address] Referral ID Status Reason Start Date Expiration Date Visits Requ ested Visits Authorized [id number] Closed 03/23/2017 06/22/2018 1 1 Encounter Details Date Type Department Care Team Description 03/23/2017 [facility] Henrique Palacios neopl asm of Encounter Gastroenterology MD [place] colon, unspecified Endoscopy Procedures [address] part of colon [address] [facility] (Primary Dx) [place] [address] [facility] [phone] [place] [address] Social History Tobacco Use Types Packs/Day Years Used Date Smoking Tobacco: Former Smokeless Tobacco: Never Comments: Quit smoking: Alcohol Use Standard Drinks/Week Comments Yes 0 (1 standard drink = 0.6 oz pure alcoho l) Sex Assigned at Date Recorded Not on file documented as of this encounter Last Filed Vital Signs Vital Sign Reading Time Taken Comments Blood Pressure 123/78 03/23/2017 1:26 PM CLEAN UP SUPERVISOR Pulse 63 03/23/2017 1:26 PM CLEAN UP SUPERVISOR Temperature - - Respiratory Rate 16 03/23/2017 1:26 PM CLEAN UP SUPERVISOR Oxygen Saturation 100% 03/23/2017 1:26 PM CLEAN UP SUPERVISOR Inhaled Oxygen Concentration - - Weight - [...] Discussed discharge teaching.Patient/family given handouts. Verbalized understanding. N UP SUPERVISOR Destiney Veras RN - 03/23/2017 12:50 PM CST Vitals charted per department protocol.Patient tolerated procedure. Medications given intermittentlyfor pain/discomfort per MD instructions.Oxygen used for the procedure 2-5 liters N UP SUPERVISOR documented in this encounter Procedure Notes Henrique [...] and oxygen saturations were monitored continuously. The [id number] was introduced through the anus and advanced [...] 3 years. Procedure Code(s): --- Professional --- 89608, Colonoscopy, flexible; with removal of tumor(s), polyp(s), or other lesion(s) by snare technique 79197, 59, Colonoscopy, flexible; with biopsy, single or multiple Diagnosis Code(s): --- Professional --- Z86.010, Personal history of colonic polyps D12.2, Benign neoplasm of ascending colon D12.4, Benign neoplasm of descending colon D12.3, Benign neoplasm of transverse colon (hepatic flexure or splenic flexure) CPT copyright 2016 [employer]. All rights reserved. The codes documented in this report are preliminary and upon flotation tank operator review may be revised to meet current compliance requirements. Henrique Palacios MD 03/23/2017 1:03:21 PM This document has been electronically signed. Number of Addenda: 0 Note Initiated On: 03/23/2017 12:07 PM Endoscopy Report N UP SUPERVISOR documented in this encounter Plan of Treatment Not on filedocumented as of this encounter Procedures Procedure Name Priority Date/Time Associated Diagnosis Comme nts ENDOSCOPY OBTAINED Routine 03/23/2017 12:58 Benign neoplasm of Results for this ANATOMICAL PATH PM CLEAN UP SUPERVISOR colon, unspecified proced ure are in part of colon the results section. ENDOSCOPY, COLON, Routine 03/23/2017 12:07 Result s for this SCREENING/DIAGNOSTIC PM CLEAN UP SUPERVISOR procedu re are in the results section. SURGICAL PATH, PARK Routine 03/23/2017 6:00 AM Re sults for this NICOLLET CLEAN UP SUPERVISOR procedure are i n the results section. documented in this encounter Results Endoscopy Obtained Anatomical Path (03/23/2017 12:58 PM CLEAN UP SUPERVISOR) P athologist Signature Endo Tis Received PN SOFT Specimen Anatomical Collection Method Collection Time Receive d Time (Source) Location / / Volume Laterality 03/23/2017 12:58 03/23/2017 6:44 PM CLEAN UP SUPERVISOR PM CLEAN UP SUPERVISOR Narrative PN SOFT - 03/23/2017 6:46 PM CLEAN UP SUPERVISOR [place] [address] CLIA number [id number] Henrique Palacios MD LAB_1 Performing Organization Address City/State/ZIP Code Phon e Number PN SOFT [address] [phone] Endoscopy, colon, diagnostic (03/23/2017 12:07 PM CLEAN UP SUPERVISOR) Specimen (Source) Anatomical Collection Method Collection Time Re ceived Time Location / / Volume Laterality 03/23/2017 12:07 PM CLEAN UP SUPERVISOR Narrative GI ([facility]) - 03/23/2017 12:07 PM CLEAN UP SUPERVISOR Patient Name: Mo Daley Procedure Date: 03/23/2017 [...] turations were monitored ? continuou sly. The [id number] was ? introduce d through the anus and ? advanced to the terminal ileum, with ? identific ation of the appendiceal ? orifice a nd IC valve. The colonoscopy ? was perfo rmed without difficulty. The ? patient t olerated the procedure well. ? The quali ty of the bowel preparation ? was good. Findings: ? The terminal ileum appeared heebr l. ? A 3 mm polyp was [...] Code(s): ?? --- Professional - -- ? 19603, Co lonoscopy, flexible; with ? removal o f tumor(s), polyp(s), or ? other les ion(s) by snare technique ? 38547, 59 , Colonoscopy, flexible; ? with biop sy, single or multiple Diagnosis Code(s): ?? --- Professional - -- ? Z86.010, Personal history of colonic ? polyps ? D12.2, Be nign neoplasm of ascending ? colon ? D12.4, Be nign neoplasm of descending ? colon ? D12.3, Be nign neoplasm of transverse ? colon (he patic flexure or splenic ? flexure) CPT copyright 2016 [employer]. All rights reserved. The codes documented in this report are preliminary and upon flotation tank operator review may be revised to meet current [...] and oxygen saturations were monitored continuously. The [id number] was introduced through the anus and advanced [...] 3 years. Procedure Code(s): --- Professional --- 62234, Colonoscopy, flexible; with removal of tumor(s), polyp(s), or other lesion(s) by snare technique 79945, 59, Colonoscopy, flexible; with biopsy, single or multiple Diagnosis Code(s): --- Professional --- Z86.010, Personal history of colonic polyps D12.2, Benign neoplasm of ascending colon D12.4, Benign neoplasm of descending colon D12.3, Benign neoplasm of transverse colon (hepatic flexure or splenic flexure) CPT copyright 2016 [employer]. All rights reserved. The codes documented in this report are preliminary and upon flotation tank operator review may be revised to meet current compliance requirements. Henrique Palacios MD 03/23/2017 1:03:21 PM This document has been electronically si gned. Number of Addenda: 0 Note Initiated On: 03/23/2017 12:07 PM Endoscopy Report Henrique Palacios MD PN GI PROCEDURE ORDERABLES Performing Organization Address City/State/ZIP Code Phon e Number GI ([facility]) GI ([facility]) [place], [place] Pathology Report (03/23/2017 6:00 AM CLEAN UP SUPERVISOR) [facility] Method Time Signature Path: FINAL SURGICAL PATHOLOGY REPORT PN SOFT Pathology #: [id number] ?Date Obtained: 03/23/2017 ? Date Received: 03/23/2017 [...] microscopic examination has been performed. Performed at [facility], [address] [place] [address] Specimen Anatomical Collection Method Collection Time Receive d Time (Source) Location / / Volume Laterality COLON STRUCTURE / 03/23/2017 6:00 AM 03/10 6:00 Unknown CLEAN UP SUPERVISOR AM CLEAN UP SUPERVISOR Henrique Palacios MD LAB_1 Performing Organization Address City/State/ZIP Code Phon e Number [address] [id number] [place] [address] [phone] documented in this encounter Visit Diagnoses Diagnosis Benign neoplasm of colon, unspecified pa rt of colon - Primary documented in this encounter Administered Medications Inactive Administered Medications - up to 3 most recent administrations Medication Order MAR Action Action Date Dose Rate Site fentaNYL (SUBLIMAZE) injection Given 03/23/2017 12:49 PM CLEAN UP SUPERVISOR 75 mcg 25-100 mcg 25-100 mcg, Intravenous, PRN, Other, Moderate Sedation, Starting on Wed03/23/17 at 1232, Until Wed04/13/17 at 0206, Administer in 25-100 mcg increments as directed by endoscopy procedure MD up to a total of 300 mcg. midazolam (VERSED) injection 0.5-2 mg Given 03/23/2017 12:49 PM CLEAN UP SUPERVISOR 1.5 mg 0.5-2 mg, Intravenous, PRN, Sedation, Starting on Wed03/23/17 at 1232, Until Wed04/13/17 at 0206, Administer in 0.5-2 mg increments as directed by endoscopy procedure MD up to a total of 8 mg. sodium chloride 0.9% injection 10-60 mL Given 03/23/2017 12:49 PM CLEAN UP SUPERVISOR 10 mL 10-60 mL, Intravenous, PRN, Line Patency, Line Care, Starting on Wed03/23/17 at 1232, Until Wed04/13/17 at 0206 documented in this encounter
--- OUTSIDE RECORDS SUMMARY | 2022-03-25 13:25 | XMS_ITS | Clinical Summary ---
:1940 External Reference #:NONE Author Organization [facility] [place] [address] Care Team Providers Name Role Phone Maxwell [...] No - primary con cerned persons include: Anisa/daughter/[phone]-cell Who is the backup family spokesperson: Name/relationship/phone (see row detail) Nileshy/daughter/[phone]-cell/ Breanne/daughter [phone] Patient has Advance Care Plan Documents (Health Care Directive, POLST): No, Health Care Packet given to patient. Patient has identified Specific Treatmen t Preferences: No Specific limits to treatment preferences NOT identified: ASSUME FULL TREATMENT. 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 germain ry 04/06/2015 Overview: 3 vessel [...] Comments Blood Pressure 116/76 07/16/2015 11:37 AM JACK FRAME TENDER Pulse 81 07/16/2015 11:37 AM JACK FRAME TENDER Temperature 36.2 ??C (97.1 ??F) 05/01/2015 11:00 AM JACK FRAME TENDER Respiratory Rate 18 05/01/2015 11:00 AM JACK FRAME TENDER Oxygen Saturation 94% 07/16/2015 11:37 AM JACK FRAME TENDER Inhaled Oxygen Concentration - - Weight 96.3 kg (212 lb 3.2 oz) 07/16/2015 11:37 AM JACK FRAME TENDER Height 179.1 cm (5' 10.5) 04/16/2015 9:00 AM JACK FRAME TENDER Body Mass Index 30.02 04/16/2015 9:00 AM JACK FRAME TENDER Plan of Treatment Health Maintenance Due Date [...] ATTN LIABIL ITY all dates [address] [place] [address] MEDICARE PART B MEDICARE PART B [id number] 2003-Pre A TTN: CLAIMS - HB USE ONLY HB ONLY sent [address] [place] [address] MEDICARE PART A MEDICARE PART A [id number] 2003-Pre A TTN: CLAIMS - HB USE ONLY HB ONLY sent [address] [place] [address] MEDICARE PPS HC MEDICARE PPS [id number] 2003-Pre [address] sent [address] [place] [address] MEDICARE - PB MEDICARE PB [id number] 2003-Pre ATTN: C LAIMS USE ONLY ONLY sent [address] [place] [address] BLUE CROSS BLUE CROSS [id number] 2014-Pres [address] [address] [place], [place] HB ONLY [id number] (Home) W [facility] [place] [address] Mo Daley Personal/Family Self 1940 [address] (Home) [place] [address] Mo Daley Third Republican Self 1940 [id number] (Home) [place] [id number] Advance Directives Documents on File Type Date Recorded 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
--- OUTSIDE RECORDS SUMMARY | 2022-03-25 13:25 | XMS_ITS | Clinical Summary ---
:1940 Author Organization [facility] Address [address] [place] [address] Care Team Providers Name Role Phone Unavailable Primary Care Provider Unavailable Source Comments Patient records contain information from all sites at [facility]. For routine questions regarding patient records, call [phone] during business hours, M-F 8:00 AM - 5:00 PM Central Time. Record requests for emergency care only can be directed to [phone] at any time.[facility] Immunizations Name Administration Dates Next Due SARS-COV-2 (COVID-19) - PFIZER (12 years 03/17/2021, 021, 06/11/2020 or older) Social History Tobacco Use Types Packs/Day Years Used Date Smoking Tobacco: Former Sex Assigned at Date Recorded Not on file Last Filed Vital Signs Vital Sign Reading Time Taken Comments Blood Pressure 147/83 04/02/2015 12:30 PM FOREIGN DIPLOMAT Pulse 58 04/02/2015 12:30 PM FOREIGN DIPLOMAT Temperature - - Respiratory Rate 20 04/02/2015 12:30 PM FOREIGN DIPLOMAT Oxygen Saturation - - Inhaled Oxygen Concentration [...] e / Group Dates MEDICARE MEDICARE A [id number] 2003-Pre [address] [place] [address] BLUE CROSS BCBS CADDO [id number] 2016-Pres [phone] PO THEA X Cost Share BLUE SHIELD BLUE COST ent [phone] [place] [address] [phone] [address] [facility] (Home) [place] [phone]
--- OUTSIDE RECORDS SUMMARY | 2022-03-25 13:25 | XMS_ITS | Encounter Summary ---
:1940 Author Organization [facility] Address [address] [place] [address] Care Team Providers Name Role Phone Unavailable Primary Care Provider Unavailable Encounter Details Date Type Department Care Team Description 03/15/2017 Notes/[facility]ders [facility] [address] An[address] Green MD Gastroenterology [address] [place] [address] [place] [address] [phone] Social History Tobacco Use Types Packs/Day Years [...]
--- OUTSIDE RECORDS SUMMARY | 2022-03-25 13:25 | XMS_ITS | Clinical Summary ---
:1940 Author Organization [facility] Address [address] [place] [address] Care Team Providers Name Role Phone Non [...] for each transition of care or referral. [facility] Allergies No known active allergies Medications Medication [...] open angle glaucoma 04/25/2004 Overview: LW Onset: [id number] ; Glaucoma Open Angle Primary Essential hypertension [...] Comments Blood Pressure 123/78 03/23/2017 1:26 PM WIRELINE FIELD OPERATOR Pulse 63 03/23/2017 1:26 PM WIRELINE FIELD OPERATOR Temperature - - Respiratory Rate 16 03/23/2017 1:26 PM WIRELINE FIELD OPERATOR Oxygen Saturation 100% 03/23/2017 1:26 PM WIRELINE FIELD OPERATOR Inhaled Oxygen Concentration - - Weight 99.8 [...] Phone Addre ss Type Group MEDICARE MEDICARE [id number] 2002-Presen [id number] Me dicare MANAGED CARE t 63 BCBS BCBS BCBS [place] [id number] 2016-Presen [id number] [address] [address] Medicare BLUE t [address] [place] [address] Mo Daley Personal/Family Self 1940 [address] (Home) [facility] [phone] [place]) [address] Care Teams Insulation Professional Relationship Specialty Start Date End Date Non Pn, Clinician, PCP - General 06/10/20 [place] [address]
--- OUTSIDE RECORDS SUMMARY | 2022-03-25 13:25 | XMS_ITS | Encounter Summary ---
:1940 Author Organization [facility] Address [address] [place] [address] Care Team Providers Name Role Phone Unavailable Primary Care Provider Unavailable Encounter Details Date Type Department Care Team Description 04/02/2015 Hospital Encounter HX [facility] MAN Nate Hawkins M.D. [address] [place] [address] [phone] (Wo rk) Social History Tobacco Use Types Packs/Day Years Used Date Smoking Tobacco: Never Assessed Sex Assigned at Date Recorded Not on file documented as of this encounter Last Filed Vital Signs Vital Sign Reading Time Taken Comments Blood Pressure 147/83 04/02/2015 12:30 PM BOAT JOINER HELPER Pulse 58 04/02/2015 12:30 PM BOAT JOINER HELPER Temperature - - Respiratory Rate 20 04/02/2015 12:30 PM BOAT JOINER HELPER Oxygen Saturation - - Inhaled Oxygen Concentration - - Weight - - Height - - Body Mass Index - - documented in this encounter Discharge Summaries Toma Floyd R.N. - 04/02/2015 1:30 PM CST ED Discharge Instructions [place] [address] [place] [address] Name: MO DALEY Date of : 1940 12:00 PM Visit Date: 04/02/2015 11:01 AM [facility] Number: [id number] Address: [address] [address] [facility] [phone] Primary Care Provider: PCP, ELSEWHERE IMPORTANT: [facility] in [place] would like to thank you for allowing [...] ?? Press the button on the top. Fortine once on or under your tongue. Do [...] more often, or are more severe. ?? [address] [address]. All rights reserved. This information is not [...] heart problem may be getting worse. ?? [facility], [address] [place] [address]. All rights reserved. This information is not [...] if you dont have one. Go to [email or web address] and click on Create Your Account. Then, follow the directions to complete the online form. Youll be asked for your [facility] number which you can find at the [...] document has images extracted. Please consider using [employer] for all your patient education needs. Source: [facility] Planet PrestigeCHART Document Id: [id number] JOINER HELPER Toma Floyd R.N. - 04/02/2015 1:30 PM CST ED Depart Summary [facility] Emergency Department Clinical Discharge Summary PERSON INFORMATION Name MO DALEY Age 74 Years 1940 12:00 PM Sex Male Language Tristanian PCP PCP, ELSEWHERE Marital Status N [id number] Visit Id Visit Reason Chest pain; Chest pain; chest pain on exertion Specialty Enc Type Emergency Med Service Emergency Medicine Referred by Track Group MAQN ED Discharge 04/02/2015 12:45 PM Tracking Id [id number] Checkout 04/02/2015 12:45 PM Checkin 04/02/2015 11:01 AM Acuity 3 -Urgent Dispo Type * Discharged to Home or Self Care Arrival 04/02/2015 11:01 AM Reg Status LOS 000 01:44 Address: [address] [place] [phone] Comment: PROVIDER INFORMATION Provider Role Provider Contact Time MIGUEL BRICE SYSTEM DEVELOPMENT MANAGER Nurse 04/02/15 11:08 NATE GUZMAN MD ED Provider 04/02/15 11:15 TOMA FLOYD SYSTEM DEVELOPMENT MANAGER Nurse 04/02/15 11:55 DIAGNOSIS Comment: PATIENT EDUCATION INFORMATION Instructions: Fast-Acting Nitroglycerin; What Is Angina? Follow up: With: Address: When: CALL 911 IMMEDIATELY IF 3 NITRO PILLS ARE REQUIRED TO CONTROL YOUR PAIN OR IF YOUR PAIN DOES NOT IMPROVE. Source: [employer] Document Id: [id number] JOINER HELPER documented in this encounter Nursing Notes Toma Floyd R.N. - 04/02/2015 3:13 PM CST Stress Echo Pt. was contacted and informed that his stress echo was moved up to Wednesday, 04/08 at 10:45 am. Instructed patient to check in at the front office agent and that the stress test would be on 2nd floor in cardiology. Electronically Signed By: TOMA FLOYD RN On: 04/02/2015 03:16 PM Source: [employer] Document Id: [id number] JOINER HELPER documented in this encounter ED Notes Toma Floyd R.N. - 04/02/2015 1:29 PM CST ED Disposition Summary ED Disposition Summary Entered On: 04/02/2015 13:29 BOAT JOINER HELPER Performed On: 04/02/2015 13:29 BOAT JOINER HELPER by TOMA FLOYD RN ED Disposition Summary Accompanied By : Alone Mode of Discharge : Ambulatory Transportation : Private vehicle Printed Discharge Instructions Given to Patient : Yes Patient Status at Discharge from ED : Improved TOMA FLOYD RN - 04/02/2015 13:29 BOAT JOINER HELPER Source: [employer] Document Id: [id number] BOAT JOINER HELPER!7 JOINER HELPER Shahida Sorto R.N. - 04/02/2015 12:31 PM CST ED Nurse Reassess ED Nurse Reassess Entered On: 04/02/2015 12:31 BOAT JOINER HELPER Performed On: 04/02/2015 12:31 BOAT JOINER HELPER by SHAHIDA SORTO RN Pain Assessment Pain Symptoms : No SHAHIDA SORTO RN - 04/02/2015 12:31 BOAT JOINER HELPER Source: [facility] POWERCHART Document Id: [id number] BOAT JOINER HELPER!3 JOINER HELPER Nate Guzman M.D. - 04/02/2015 11:16 AM CST Chest pain Document Contains Addenda Patient: MO DALEY Age: 74 years Sex: Male : 1940 Author: NATE GUZMAN MD Attachments: None Basic Information Time seen: Immediately upon arrival. History source: Patient. Arrival mode: Private vehicle. History limitation: None. Additional information: Chief Complaint from Nursing Triage Note : Chief Complaint Description 04/02/2015 11:09 BOAT JOINER HELPER Chief Complaint Description Patient presents stating he [...] Troponin T (Order Processing): Stat, 04/02/2015 11:16 BOAT JOINER HELPER, Once CBC (includes Auto Differential) (Order Processing): Stat, 04/02/2015 11:16 BOAT JOINER HELPER, Once Basic Metabolic Panel (Order Processing): Stat, 04/02/2015 11:16 BOAT JOINER HELPER, Once Diagnostic Tests: EKG (Order Processing): 04/02/2015 11:16 BOAT JOINER HELPER, Reason: EKG, Stat, Stat, MAQN ED. Electrocardiogram:* [...] review:Lab results : Lab View 04/02/2015 11:15 BOAT JOINER HELPER Hgb 15.2 g/dL Hct 45.8 % WBC 7.8 x10(9)/L RBC 5.13 x10(12)/L MCV 89.3 fL RDW 14.2 % Platelet 249 x10(9)/L Neutro Absolute 5.34 10(9)/L Lymph Absolute 1.49 x10(9)/L [place] Absolute 0.78 x10(9)/L Eos Absolute 0.18 x10(9)/L [...] Time 04/02/2015 12:34:00, to home. Prescriptions: Prescription [facility]: nitroglycerin 0.4 mg sublingual tablet (Prescribe): [...] cardiac evaluation though he refuses. Risks including NE and were discussed with patient who is unwavering in his decision.. Electronically Signed By: NATE GUZMAN MD On: 04/02/2015 12:38 PM Modified by and Electronically Signed by: NATE GUZMAN MD On: 04/02/2015 12:38 PM Source: [facility] POWERCHART Document Id: [id number]} JOINER HELPER Miguel Brice R.N. - 04/02/2015 11:09 AM CST ED Primary Assessment Document Has Been Updated ED Primary Assessment Entered On: 04/02/2015 11:14 BOAT JOINER HELPER Performed On: 04/02/2015 11:09 BOAT JOINER HELPER by MIGUEL BRICE RN Reason For Visit (As Of: 04/02/2015 11:14:07 BOAT JOINER HELPER) Diagnoses(Active) Chest pain Date: 04/02/2015 ; Diagnosis Type: Reason For Visit ; Confirmation: Complaint of ; Clinical Dx: Chest pain ; Classification: Medical ; Clinical Service: Non-Specified ; Code: PNED ; Probability: 0 ; Diagnosis Code: [id number] Triage Chief Complaint Description : Patient presents stating he has chest pain with activity; today it happened when he walked 100 [address] [place] his barn. Intermittent pain with exertion over last 2-3 days. Currently denies chest pain or dizziness. Information Given By : Patient Accompanied By : Alone Mode of Arrival ED : Private vehicle Track : Medical Languages : Tristanian Treatments Prior to Arrival : Aspirin Is Patient Female and 13-50 no hysterectomy : No MIGUEL BRICE RN - 04/02/2015 11:09 BOAT JOINER HELPER Pain Assessment Pain Symptoms : No MIGUEL BRICE RN - 04/02/2015 11:09 BOAT JOINER HELPER Comfort Measures Comfort Measures Grid [place] Application : Yes Comfortable Environment : Yes MIGUEL BRICE RN - 04/02/2015 11:09 BOAT JOINER HELPER ED Physician Notification Time ED Physician Notification Time : 04/02/2015 11:10 BOAT JOINER HELPER MIGUEL BRICE RN - 04/02/2015 11:09 BOAT JOINER HELPER GATO GATO Level 1 : No GATO Level 2 : Yes MIGUEL BRICE RN - 04/02/2015 11:09 BOAT JOINER HELPER DCP GENERIC CODE Tracking Acuity : 3 -Urgent Tracking Group : MAQN ED MIGUEL BRICE RN - 04/02/2015 11:09 BOAT JOINER HELPER Allergy (As Of: 04/02/2015 11:14:08 BOAT JOINER HELPER) Allergies (Active) No Known Medication Allergies Estimated Onset Date: Unspecified ; Created By: MIGUEL BRICE RN; Reaction Status: Active ; Category: Drug ; Substance: No Known Medication Allergies ; Type: Allergy ;Updated By: MIGUEL BRICE RN; Reviewed Date: 04/02/2015 11:12 BOAT JOINER HELPER ID Screen Drug Resistant Organism : No Travel Within Last 21 Days : No Contact with someone with Ebola : No MIGUEL BRICE RN - 04/02/2015 11:09 BOAT JOINER HELPER TB Symptoms Grid Bloody Sputum : No Fatigue : No Fever : No Loss of Appetite : No Night Sweats : No Persistent Cough Greater Than 3 Weeks : No Weight Loss : No MIGUEL BRICE RN - 04/02/2015 11:09 BOAT JOINER HELPER Alcohol and Drug Use : No Employee [...] No MIGUEL BRICE RN - 04/02/2015 11:09 BOAT JOINER HELPER Immunizations Pneumovac : Unknown Influenza : Last year MIGUEL BRICE RN - 04/02/2015 11:09 BOAT JOINER HELPER Respiratory Airway : Patent Respirations : Unlabored Respiratory Pattern : Regular MIGUEL BRICE RN - 04/02/2015 11:09 BOAT JOINER HELPER Cardiovascular Heart Rhythm : Regular Skin Color : Normal for ethnicity Skin Description : Dry Skin Temperature : Warm MIGUEL BRICE RN - 04/02/2015 11:09 BOAT JOINER HELPER Neurological Last Well Time Known : Not applicable Level of Consciousness : Alert Orientation : Oriented x 3 Characteristics of Speech : Appropriate for age Neuro Patient Stated Symptoms : None Gait : Steady Swallowing Difficulty/Aspiration Risk : None MIGUEL BRICE RN - 04/02/2015 11:09 BOAT JOINER HELPER ED Psychosocial Affect/Behavior : Calm, Cooperative, Appropriate Domestic Abuse Concerns : None Behavioral Health Screen/Safety Assmt : No MIGUEL BRICE RN - 04/02/2015 11:09 BOAT JOINER HELPER Gastrointestinal Nutrition ED : Adequate MIGUEL BRICE RN - 04/02/2015 11:09 BOAT JOINER HELPER /OB Assessment Patient Stated Symptoms : None MIGUEL BRICE RN - 04/02/2015 11:09 BOAT JOINER HELPER Integumentary Integumentary Patient Stated Symptoms : None Skin Turgor : Elastic Skin Integrity : Intact Mucous Membrane Color : [place] Skin Color : Normal for ethnicity Skin Description : Dry MIGUEL BRICE RN - 04/02/2015 11:09 BOAT JOINER HELPER Musculoskeletal Fall Prevention Education Provided : Yes MIGUEL BRICE RN - 04/02/2015 11:09 BOAT JOINER HELPER Social Habits Tobacco Use/Currently Using : No Tobacco Use/Last 12 months : No Smoking Status : Former smoker MIGUEL BRICE RN - 04/02/2015 11:09 BOAT JOINER HELPER Source: [facility] [employer] Document Id: [id number] BOAT JOINER HELPER!88 JOINER HELPER documented in this encounter Miscellaneous Notes Miscellaneous - Blanca Palomares R.N. - 04/03/2015 2:24 PM CST Communication Note Communication Note Entered On: 04/03/2015 14:25 BOAT JOINER HELPER Performed On: 04/03/2015 14:24 BOAT JOINER HELPER by BLANCA PALOMARES RN Communication Assessment Communication Note : proposal writer accessed pt's chart to get the ED MD's note to give to pt's primary care doctor, so patient can have a stress test. BLANCA PALOMARES RN - 04/03/2015 14:24 BOAT JOINER HELPER Source: [facility] [employer] Document Id: [id number] BOAT JOINER HELPER!3 JOINER HELPER Miscellaneous - Conversion, Historical Provider Ser - 04/02/2015 4:10 PM BOAT JOINER HELPER Stress ECHO From: ALEXIA GUTIERREZ To: [facility]; Sent: 04/02/2015 16:10:36 BOAT JOINER HELPER Subject: Stress ECHO patient is booked right now in [place] for a Stress Test on 04/16/2015 He wants to know if [facility] could get him in any sooner? Informed Caller that I believe May was the next available - just double checking No need to call patient unless we can get him in sooner in [place] Thank you Source: [facility] POWERCHART Document Id: [id number] Miscellaneous - Toma Floyd R.N. - 04/02/2015 1:29 PM CST Valuables/Belongings Valuables/Belongings Entered On: 04/02/2015 13:29 BOAT JOINER HELPER Performed On: 04/02/2015 13:29 BOAT JOINER HELPER by TOMA FLOYD RN Valuables/Belongings Belongings Sent Home With : patient TOMA FLOYD RN - 04/02/2015 13:29 BOAT JOINER HELPER [email or web address] Document Id: [id number] BOAT JOINER HELPER!3 JOINER HELPER Miscellaneous - Conversion, Historical Provider Ser - 04/02/2015 12:45 PM BOAT JOINER HELPER Coding Summary-Paper Based CODING DATE: 04/13/2015 FINAL [facility] STATUS: * Discharged to Home or [...] BEAU[place]AMP Date Saved: 04/13/2015 11:22 pm Source: [employer] Document Id: [id number] Miscellaneous - Toma Floyd RSwapnilN. - 04/02/2015 11:01 AM CST Facility Charge Ticket 2.0 11.0 DX Facility Charge Ticket 2.0 11.0 DX Entered On: 04/02/2015 13:29 BOAT JOINER HELPER Performed On: 04/02/2015 11:01 BOAT JOINER HELPER by TOMA FLOYD RN Facility Charge Ticket [...] Nursing Notes ED Primary Assessment,04/02/15 11:09,MIGUEL BRICE SYSTEM DEVELOPMENT MANAGER Nurse Reassess,04/02/15 12:31,SHAHIDA SORTO RN [place] Nursing Assessment : Triage and 1-2 nursing assessments [place] Disposition : Discharge Disposition RTF : discharge [place] Total Points with Diagnosis Control : 13 [place] Visit Level : 54194 Level 5 Treatments Prior to Arrival : Aspirin TOMA FLOYD RN - 04/02/2015 13:29 BOAT JOINER HELPER [email or web address] Document Id: [id number] BOAT JOINER HELPER!19 JOINER HELPER documented in this encounter Plan of Treatment Not on filedocumented as of this encounter Procedures Procedure Name Priority Date/Time Associated Diagnosis Comme nts DX CHEST 1 VIEW Routine 04/02/2015 12:06 PM Resul ts for this BOAT JOINER HELPER procedure are i n the results section. AUTOMATED Routine 04/02/2015 11:15 AM Results for this DIFFERENTIAL, B BOAT JOINER HELPER procedure ar e in the results section. CBC WITH Routine 04/02/2015 11:15 AM Results for this DIFFERENTIAL, B BOAT JOINER HELPER procedure ar e in the results section. TROPONIN T, 5TH Routine 04/02/2015 11:15 AM Resul ts for this GEN, P BOAT JOINER HELPER procedure are i n the results section. BASIC METABOLIC Routine 04/02/2015 11:15 AM Resul ts for this PANEL, S/P BOAT JOINER HELPER procedure are i n the results section. documented in this encounter Results DX Chest 1 View (04/02/2015 12:06 PM BOAT JOINER HELPER) Anatomical Region Laterality Modality Chest N/A Radiographic Imaging Specimen (Source) Anatomical Collection Method Collection Time Re ceived Time Location / / Volume Laterality 04/02/2015 12:06 PM BOAT JOINER HELPER Impressions 04/02/2015 12:15 PM BOAT JOINER HELPER No acute portable x-ray findings. Narrative 04/02/2015 12:15 PM BOAT JOINER HELPER EXAM: XR Chest 1 view portable INDICATION: [...] GING PROCEDURES Automated Differential (04/02/2015 11:15 AM BOAT JOINER HELPER) P athologist Signature Absolute 5.34 1.70 - POWERCHART Neutrophils 7.00 109L Lymphocytes 1.49 0.90 - POWERCHART 2.90 X109L Monocytes 0.78 0.30 - POWERCHART 0.90 X109L Eosinophils 0.18 0.05 - POWERCHART 0.50 X109L Absolute 0.03 0.00 - POWERCHART Basophil 0.30 X109L Specimen Anatomical Collection Method Collection Time Receive d Time (Source) Location / / Volume Laterality Blood 04/02/2015 11:15 04/02/2015 AM BOAT JOINER HELPER 11:15 AM BOAT JOINER HELPER Nate Guzman M.D. LAB BLOOD ADD-ON Performing Organization Address City/State/ZIP Code Phon e Number POWERCHART CBC with Differential (04/02/2015 11:15 AM BOAT JOINER HELPER) P athologist Signature Leukocytes 7.8 3.5 - 10.5 POWERCHART X109L Erythrocytes 5.13 4.32 - POWERCHART 5.72 H9300V Hemoglobin 15.2 13.5 - POWERCHART 17.5 GDL Hematocrit 45.8 38.8 - POWERCHART 50.0 MCV 89.3 81.2 - POWERCHART 95.1 FL HX RDW 14.2 11.8 - POWERCHART 15.6 Platelet Count 249 150 - 450 POWERCHART X109L HXDifferential? Auto POWERCHART Specimen (Source) Anatomical Collection Method Collection Time Re ceived Time Location / / Volume Laterality Blood 04/02/2015 11:15 AM BOAT JOINER HELPER Nate Guzman M.D. LAB BLOOD ADD-ON Performing Organization Address City/State/ZIP Code Phon e Number POWERCHART (ABNORMAL) BMP (Basic Metabolic Panel) (04/02/2015 11:15 AM BOAT JOINER HELPER) Patholo gist Method Time Signature Sodium, S [...] MLMINSA eGFR >60.0 >=60.0 POWERCHART Black/ MLMINSA Japanese Glucose 169 (H) 70 - 140 POWERCHART MGDL Specimen (Source) Anatomical Collection Method Collection Time Re ceived Time Location / / Volume Laterality Blood 04/02/2015 11:15 AM BOAT JOINER HELPER Nate Guzman M.D. LAB BLOOD ADD-ON Performing Organization Address City/State/ZIP Code Phon e Number POWERCHART Troponin T (04/02/2015 11:15 AM BOAT JOINER HELPER) P athologist Signature Troponin T, S <0.010 <=0.010 POWERCHART NGML Comment: Values > or = 0.01 ng/mL have b een shown to have prognostic value. Specimen (Source) Anatomical Collection Method Collection Time Re ceived Time Location / / Volume Laterality Blood 04/02/2015 11:15 AM BOAT JOINER HELPER Nate Guzman M.D. LAB BLOOD ADD-ON Performing Organization Address City/State/ZIP Code Phon e Number POWERCHART documented in this encounter Visit Diagnoses Not on filedocumented in this encounter
--- OUTSIDE RECORDS SUMMARY | 2022-03-25 13:25 | XMS_ITS | Encounter Summary ---
:1940 Author Organization [facility] Address [address] [place] [address] Care Team Providers Name Role Phone Unavailable Primary Care Provider Unavailable Reason for Referral Specialty Diagnoses / Procedures Referred By Contact Refer red To Contact Sugar Soler M.D. [facility] [address] [place] [address] Referral ID Status Reason Start Date Expiration Date Visits Requ ested Visits Authorized Encounter Details Date Type Department Care Team Description 02/03/[address] [facility] PCP [facility] MNT Richie Sheikh D.O. [address] [place] [address] (Wo rk) Social History Tobacco [...]
--- OUTSIDE RECORDS SUMMARY | 2022-03-25 13:25 | XMS_ITS | Encounter Summary ---
:1940 Author Organization [facility] Address [address] [place] [address] Care Team Providers Name Role Phone Unavailable Primary Care Provider Unavailable Encounter Details Date Type Department Care Team Description 03/17/2021 Immunization Department of [facility] Fabian Sheikh Enc ounter For COVID-19 Medicine in [facility] Vaccine Immunization [place], [place] [address] [place] [phone] Social History Tobacco Use Types Packs/Day Years Used Date Smoking Tobacco: Former Sex Assigned at Date Recorded Not on file documented as of this encounter Plan of Treatment Not on filedocumented as of this encounter Visit Diagnoses Diagnosis Encounter For COVID-19 Vaccine Immunizat ion documented in this encounter
--- OUTSIDE RECORDS SUMMARY | 2022-03-25 13:25 | XMS_ITS | Encounter Summary ---
:1940 Author Organization [facility] Address [address] [place] [address] Care Team Providers Name Role Phone Unavailable Primary Care Provider Unavailable Encounter Details Date Type Department Care Team Description 07/02/2020 Immunization Business Service Freda Kaur Encount er For COVID-19 Center in [place] Vaccine Immunization [place] [address] [facility] [address] [place] [phone] Social History Tobacco Use Types Packs/Day Years Used Date Smoking Tobacco: Former Sex Assigned at Date Recorded Not on file documented as of this encounter Plan of Treatment Not on filedocumented as of this encounter Visit Diagnoses Diagnosis Encounter For COVID-19 Vaccine Immunizat ion documented in this encounter
--- OUTSIDE RECORDS SUMMARY | 2022-03-25 13:25 | XMS_ITS | Encounter Summary ---
:1940 Author Organization [facility] Address [address] [place] [address] Care Team Providers Name Role Phone Unavailable Primary Care Provider Unavailable Reason for Referral (Routine) - Closed Specialty Diagnoses / Procedures Referred By Contact Refer red To Contact Diagnoses Screen for colon cancer Henrique Palacios MD Procedures Endoscopy, colon, diagnostic [address] [place], [place] [address] Referral ID Status Reason Start Date Expiration Date Visits Requ ested Visits Authorized [id number] Closed 03/24/2017 06/23/2018 1 1 INSTALLER Encounter Details Date Type Department Care Team Description 03/23/2017 Notes/Orders [facility] [address] Ebony Hsu MD Screen for colon Gastroenterology [address] cancer (Primary Dx) [address] [place] [address] [phone] Social History Tobacco Use Types Packs/Day Years [...]
--- OUTSIDE RECORDS SUMMARY | 2022-03-25 13:25 | XMS_ITS | Encounter Summary ---
:1940 Author Organization [facility] Address [address] [place] [address] Care Team Providers Name Role Phone Unavailable Primary Care Provider Unavailable Reason for Referral Specialty Diagnoses / Procedures Referred By Contact Refer red To Contact [address] [phone] Referral ID Status Reason Start Date Expiration Date Visits Requ ested Visits Authorized ASSEMBLER Encounter Details Date Type Department Care Team Description 06/11/2020 Immunization Department of [facility] Freda Kaur Enc ounter For COVID-19 Medicine, [facility] [place] Vaccine Immunization [facility] in [address] (Primary Dx) [place] [id number] [place] [phone] Social History Tobacco Use Types Packs/Day Years [...]
--- OUTSIDE RECORDS SUMMARY | 2022-03-25 13:26 | XMS_ITS | Encounter Summary ---
:1940 Author Organization [facility] Address [address] [place] [address] Care Team Providers Name Role Phone Unavailable Primary Care Provider Unavailable Encounter Details Date Type Department Care Team Description 10/02/2005 PN Conversion Only PRESYBETERIAN CONVERSION Rashid Luu MD [address] [place] [address] (Wo rk) Social History Tobacco [...] Siena Luu MD LAB_1 Performing Organization Address [facility] Phon e Number HP CONVERSION FSH (10/02/2005 9:59 AM CDT) P athologist Signature Follicle 2.5 1.4 - 18.1 HP CONVERSION Stimulating mIU/mL Hormone Specimen (Source) Anatomical Collection Method Collection Time Re ceived Time Location / / Volume Laterality 10/02/2005 9:59 AM CDT Rashid Luu MD LAB_1 Performing Organization Address [facility] Phon e Number HP CONVERSION (ABNORMAL) Testosterone, Total Adult Males (10/02/2005 9:59 AM CDT) Patholo gist Method Time Signature Testosterone 209 (L) 225 - 825 HP CONVERSION Level ng/dL Specimen (Source) Anatomical Collection Method Collection Time Re ceived Time Location / / Volume Laterality 10/02/2005 9:59 AM CDT C Siena Luu MD LAB_1 Performing Organization Address [facility] Phon e Number HP CONVERSION documented in this encounter Visit Diagnoses Not on filedocumented in this encounter
--- OUTSIDE RECORDS SUMMARY | 2022-03-25 13:26 | XMS_ITS | Encounter Summary ---
:1940 Author Organization [facility] Address [address] [place] [address] Care Team Providers Name Role Phone Unavailable Primary Care Provider Unavailable Encounter Details Date Type Department Care Team Description 11/01/2006 Office Visit [place] [facility] Sandra Garay MD [facility] [address] [facility] [address] [place] [address] [place], [place] [address] [phone] Social History Tobacco Use Types Packs/Day Years [...] 08/29/102000 Note Time: 11/01/06 0001 Status: Signed Cost Recorder: Sandra Garay MD (Physician) NAME: ALEXANDR SOTELO MR#: [id number] ACCT: [id number] VISIT: [id number] DICTATING CLINICIAN: SANDRA Yonas MD JACQUI JOB: [id number] LOC: 506 CLINIC PROGRESS NOTE DATE OF [...] LastWord. 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 He quit smoking in [...] concerned with a lesion on his right judaism which looks like a seborrheic keratosis. No [...] tendon reflexes symmetrical. Both his toes downgoing. Nyeuyf-uj-gfom symmetric. Romberg stable. Gait steady. ASSESSMENT: Complete [...] pressure at home continues to run high. SHN:[id number] C: 11/02/06 10:18 DOCUMENT: [id number] documented in this encounter Plan of Treatment Not on filedocumented as of this encounter Visit Diagnoses Not on filedocumented in this encounter
--- OUTSIDE RECORDS SUMMARY | 2022-03-25 13:26 | XMS_ITS | Encounter Summary ---
:1940 Author Organization [facility] Address [address] [place] [address] Care Team Providers Name Role Phone Unavailable Primary Care Provider Unavailable Encounter Details Date Type Department Care Team Description 10/07/2005 Rail Track Layer Only [facility] 3800 Rashid Pichardo MD Endocrinology 3800 [facility] [address] [place] [address] [id number] [phone] Social History Tobacco Use Types Packs/Day Years Used Date Smoking Tobacco: Never Assessed Sex Assigned at Date Recorded Not on file documented as of this encounter Progress Notes Rashid Pichardo MD - 10/07/2005 12:01 AM CDT Progress Notes signed by Rashid Pichardo MD at 10/07/05 0300 Author: Rashid Pichardo MD Service: (none) Author Type: Physician Filed: 08/29/10 1210 Note Time: 10/07/05 0001 Status: Signed Industrial Garage Servicer: Rashid Pichardo MD (Physician) 10/07/05: Labs from 10/02/05 reviewed. T los before shot. Switch to androgel. Get tetosterone level drawn before appt. RTC 4-6 weeks. Lab letter sent. JALEN Pichardo MD PhD documented in this encounter Plan of Treatment Not on filedocumented as of this encounter Visit Diagnoses Not on filedocumented in this encounter
--- OUTSIDE RECORDS SUMMARY | 2022-03-25 13:26 | XMS_ITS | Encounter Summary ---
:1940 Author Organization [facility] Address [address] [place] [address] Care Team Providers Name Role Phone Unavailable Primary Care Provider Unavailable Encounter Details Date Type Department Care Team Description 12/22/2011 Notes/Orders [facility] 6500 Henrique Palacios MD Endoscopy [address] [place] [address] [place] [address] [phone] Social History Tobacco Use Types Packs/Day Years Used Date Smoking Tobacco: Never Assessed Sex Assigned at Date Recorded Not on file documented as of this encounter Plan of Treatment Not on filedocumented as of this encounter Visit Diagnoses Not on filedocumented in this encounter
--- OUTSIDE RECORDS SUMMARY | 2022-03-25 13:26 | XMS_ITS | Encounter Summary ---
:1940 Author Organization [facility] Address [address] [place] [address] Care Team Providers Name Role Phone Unavailable Primary Care Provider Unavailable Encounter Details Date Type Department Care Team Description 04/27/2006 Professor Of Counseling Only [facility] 3800 Rashid Pichardo MD Endocrinology 3800 [facility] 3800 [facility] [place] [address] [id number] [phone] Social History Tobacco Use Types Packs/Day Years [...] 1611 Note Time: 04/27/06 0001 Status: Signed Histological Illustrator: Rashid Pichardo MD (Physician) 04/27/06: Labs reviewed. Testosterone and hgb borderline high. Consider going back to one packet of Androgel applied daily. Lab letter sent. JALEN Pichardo MD YNECOLOGY PHYSICIAN documented in this encounter Plan of Treatment Not on filedocumented as of this encounter Visit Diagnoses Not on filedocumented in this encounter
--- OUTSIDE RECORDS SUMMARY | 2022-03-25 13:26 | XMS_ITS | Encounter Summary ---
:1940 Author Organization [facility] Address [address] [place] [address] Care Team Providers Name Role Phone Unavailable Primary Care Provider Unavailable Encounter Details Date Type Department Care Team Description 12/21/2006 PN Conversion Only [facility] GASTROENTEROLOG Y Henrique Palacios MD [address] [place], [place] [address] (Wo rk) Social History Tobacco Use Types Packs/Day Years Used Date Smoking Tobacco: Never Assessed Sex Assigned at Date Recorded Not on file documented as of this encounter Plan of Treatment Not on filedocumented as of this encounter Visit Diagnoses Not on filedocumented in this encounter
--- OUTSIDE RECORDS SUMMARY | 2022-03-25 13:26 | XMS_ITS | Encounter Summary ---
:1940 Author Organization [facility] Address [address] [place] [address] Care Team Providers Name Role Phone Unavailable Primary Care Provider Unavailable Encounter Details Date Type Department Care Team Description 04/21/2006 Procedure Visit [facility] 3900 [place], OD Ophthalmology OFF SITE [address] [place] [address] [facility], [address] [phone] Social History Tobacco Use Types Packs/Day Years Used Date Smoking Tobacco: Never Assessed Sex Assigned at Date Recorded Not on file documented as of this encounter Plan of Treatment Not on filedocumented as of this encounter Visit Diagnoses Not on filedocumented in this encounter
--- OUTSIDE RECORDS SUMMARY | 2022-03-25 13:26 | XMS_ITS | Encounter Summary ---
:1940 Author Organization [facility] Address [address] [place] [address] Care Team Providers Name Role Phone Unavailable Primary Care Provider Unavailable Encounter Details Date Type Department Care Team Description 03/01/2006 Office Visit [place] [address] [place] [address] 9715 [facility] [phone] [facility], [address] Social History Tobacco Use Types Packs/Day Years Used Date Smoking Tobacco: Never Assessed Sex Assigned at Date Recorded Not on file documented as of this encounter Plan of Treatment Not on filedocumented as of this encounter Visit Diagnoses Not on filedocumented in this encounter
--- OUTSIDE RECORDS SUMMARY | 2022-03-25 13:26 | XMS_ITS | Encounter Summary ---
:1940 Author Organization [facility] Address [address] [place] [address] Care Team Providers Name Role Phone Unavailable Primary Care Provider Unavailable Encounter Details Date Type Department Care Team Description 09/22/2005 PN Conversion Only YAZIDI CONVERSION Rashid Luu MD 6153 [place] [address] (Wo rk) Social History Tobacco [...] Results ALT (SGPT) (09/22/2005 2:27 PM CDT) [facility] gist Method Time Signature Alanine 40 0 [...] (09/22/2005 2:27 PM CDT) [facility] Time Signature Testosterone 374 225 - 825 HP CONVERSION Level ng/dL Specimen (Source) Anatomical Collection Method Collection Time Re ceived Time Location / / Volume Laterality 09/22/2005 2:27 PM CDT Rashid Luu MD LAB_1 Performing Organization Address City/[facility]/ZIP Code Phon e Number HP CONVERSION Free [...]
--- OUTSIDE RECORDS SUMMARY | 2022-03-25 13:26 | XMS_ITS | Encounter Summary ---
:1940 Author Organization [facility] Address [address] [place] [address] Care Team Providers Name Role Phone Unavailable Primary Care Provider Unavailable Encounter Details Date Type Department Care Team Description 10/02/2005 Nursing Visit [place] [facility] Juan Antonio, Caleb martínez MD Medicine [address] [address] [facility] [address] [place] [address] [place], [place] [phone] (Wo rk) Social History Tobacco Use Types Packs/Day Years Used Date Smoking Tobacco: Never Assessed Sex Assigned at Date Recorded Not on file documented as of this encounter Plan of Treatment Not on filedocumented as of this encounter Visit Diagnoses Not on filedocumented in this encounter
--- OUTSIDE RECORDS SUMMARY | 2022-03-25 13:26 | XMS_ITS | Encounter Summary ---
:1940 Author Organization [facility] Address [address] [place] [address] Care Team Providers Name Role Phone Unavailable Primary Care Provider Unavailable Encounter Details Date Type Department Care Team Description 09/05/2010 PN Conversion Only [facility] Mony Garay HMD Medicine [address] [place] [address] [place] [address] [place] [address] [phone] Social History Tobacco Use Types Packs/Day Years Used Date Smoking Tobacco: Never Assessed Sex Assigned at Date Recorded Not on file documented as of this encounter Plan of Treatment Not on filedocumented as of this encounter Visit Diagnoses Not on filedocumented in this encounter
--- OUTSIDE RECORDS SUMMARY | 2022-03-25 13:26 | XMS_ITS | Encounter Summary ---
:1940 Author Organization [facility] Address [address] [place] [address] Care Team Providers Name Role Phone Unavailable Primary Care Provider Unavailable Encounter Details Date Type Department Care Team Description 12/30/2011 Hospital Encounter [facility] 650 0 Endoscopy 6500 [facility] [place] [address] Social History Tobacco Use Types Packs/Day Years [...] 12/30/11 1025 Note Time: 12/30/11939 Status: Signed Creeler: Henrique Palacios MD (Physician) Patient Name: Mo [...] and oxygen saturations were monitored continuously. The CF-[id number]-4 colonoscope was introduced through the anus and [...] in 5 years for surveillance. CPT4 Code(s): 26432, Colonoscopy, flexible, proximal to splenic flexure; with biopsy, single or multiple ICD9 Code(s): 211.3, Benign neoplasm of colon 569.0, Anal and rectal polyp V12.72, Personal history of colonic polyps CPT Copyright 2011 [employer]. All Rights Reserved. The codes documented in this report are preliminary and upon associate chief nurse review may be revised to meet current [...] ar e in the results section. SURGICAL EJFF CARR Routine 12/30/2011 7:00 AM Re sults [...] PATHOLOGY REP ORT HP CONVERSION Pathology #: [id number] ? Date Obtained: 12/30/2011 ?Date Received: 12/30/2011 DIAGNOSIS: Polyps designated cecum/rectum, biopsies- - Tubular adenoma fragments. ?ADOLFO ESPINOZA MD ? (electronic signatur e) ? 12/31/2011 ??13:5 8 CLINICAL NOTES: Follow up polyp ORGAN/TISSUE SITE: Cecum, rectum GROSS DESCRIPTION: The specimen is labeled cecum and consists of 4 bar[place]ona mucosal tissue fragments averaging 0.2 cm in greatest dimension. ??Entirel y submitted in cassette [id number]. ? WEYAL MICROSCOPIC DESCRIPTION: Microscopic examination performed. CPT Codes: ?43640 x 1 ? End of Report Specimen [...]
--- OUTSIDE RECORDS SUMMARY | 2022-03-25 13:26 | XMS_ITS | Encounter Summary ---
:1940 Author Organization [facility] Address [address] [place] [address] Care Team Providers Name Role Phone Unavailable Primary Care Provider Unavailable Reason for Visit Reason Comments Other Encounter Details Date Type Department Care Team Description 10/06/2006 Telephone [facility], Message Other [address] [place] [address] Social History Tobacco Use Types Packs/Day Years Used Date Smoking Tobacco: Never Assessed Sex Assigned at Date Recorded Not on file documented as of this encounter Progress Notes Christin Severino - 10/06/2006 3:23 PM CDT Phone Note filed by Christin Severino at 08/26/102132 Author: Christin Severino Service: (none) Author Type: (none) Filed: 08/26/102132 Note Time: 10/06/061522 Status: Signed Water Supply Technician: Imr Conversion Prescription Refill Please provide enough refills to last until patient's next visit. Comment:- Pharmacy Seq #:-[phone] Pharmacy Name:-[facility] [place] or City:-[place], [place] Clinician Name:-JACQUI Drug Name/Strength:-NORVASC TAB 2.5 [...] 9:13am Acknowledged by ADOLFO CASTELLANOS on 2:06pm UCTION GRAPHIC DESIGNER documented in this encounter Plan of Treatment Not on filedocumented as of this encounter Visit Diagnoses Not on filedocumented in this encounter
--- OUTSIDE RECORDS SUMMARY | 2022-03-25 13:26 | XMS_ITS | Encounter Summary ---
:1940 Author Organization [facility] Address [address] [place] [address] Care Team Providers Name Role Phone Unavailable Primary Care Provider Unavailable Encounter Details Date Type Department Care Team Description 04/20/2006 PN Conversion Only PENTECOSTAL CONVERSION Rashid Luu MD [address] [place] [address] (Wo rk) Social History Tobacco Use Types Packs/Day Years Used Date Smoking Tobacco: Never Assessed Sex Assigned at Date Recorded Not on file documented as of this encounter Plan of Treatment Not on filedocumented as of this encounter Procedures Procedure Name Priority Date/Time Associated Comments Diagnosis TESTOSTERONE TOTAL Routine 04/20/2006 10:38 Resul ts for this ADULT MALES AM OIL PUMP STATION OPERATOR CHIEF procedure are i n the results section. GLUCOSE Routine 04/20/2006 10:38 Results for this AM OIL PUMP STATION OPERATOR CHIEF procedure are i n the results section. COMPLETE BLOOD Routine 04/20/2006 10:38 Results f or this COUNT-W/DIFF AM OIL PUMP STATION OPERATOR CHIEF procedure are i n the results section. PROSTATIC SPECIFIC Routine 04/20/2006 10:38 Resul ts for this ANTIGEN(SCREEN) AM OIL PUMP STATION OPERATOR CHIEF procedure ar e in the results section. HGB A1C Routine 04/20/2006 10:38 Results for this AM OIL PUMP STATION OPERATOR CHIEF procedure are i n the results section. documented in this encounter Results (ABNORMAL) Complete Blood Count-W/Diff (04/20/2006 10:38 AM OIL PUMP STATION OPERATOR CHIEF) [facility] Method Time Signature White Blood Cell [...] - HP CONVERSION Hemoglobin Conc 36.5 gm/dL [place] RDW 12.9 11.0 - HP CONVERSION 15.0 [...] / / Volume Laterality 04/20/2006 10:38 AM OIL PUMP STATION OPERATOR CHIEF C Siena Luu MD LAB_1 Performing Organization Address City/[facility]/ZIP Code Phon e Number HP CONVERSION (ABNORMAL) Glucose (04/20/2006 10:38 AM OIL PUMP STATION OPERATOR CHIEF) athologist Signature Lab Glucose 109 (H) 60 - 100 HP CONVERSION mg/dL Specimen (Source) Anatomical Collection Method Collection Time Re ceived Time Location / / Volume Laterality 04/20/2006 10:38 AM OIL PUMP STATION OPERATOR CHIEF C Siena Luu MD LAB_1 Performing Organization Address City/State/ZIP Code Phon e Number HP CONVERSION Prostatic Specific Antigen (Screen) (04/20/2006 10:38 AM OIL PUMP STATION OPERATOR CHIEF) athologist Signature Prostate 1.1 0.0 - 4.0 HP CONVERSION Specific ng/mL Antigen Specimen (Source) Anatomical Collection Method Collection Time Re ceived Time Location / / Volume Laterality 04/20/2006 10:38 AM OIL PUMP STATION OPERATOR CHIEF C Siena Luu MD LAB_1 Performing Organization Address City/State/ZIP Code Phon e Number HP CONVERSION (ABNORMAL) Hgb A1c (04/20/2006 10:38 AM OIL PUMP STATION OPERATOR CHIEF) P athologist Signature HGB A1C 6.2 (H) <6.0 % HP CONVERSION Specimen (Source) Anatomical Collection Method Collection Time Re ceived Time Location / / Volume Laterality 04/20/2006 10:38 AM OIL PUMP STATION OPERATOR CHIEF C Siena Luu MD LAB_1 Performing Organization Address City/[facility] Code Phon e Number HP CONVERSION Testosterone, Total Adult Males (04/20/2006 10:38 AM OIL PUMP STATION OPERATOR CHIEF) Analysis Performed At Patho logist Time Signature Testosterone 562 750 - 820 HP CONVERSION Level ng/dL Specimen (Source) Anatomical Collection Method Collection Time Re ceived Time Location / / Volume Laterality 04/20/2006 10:38 AM OIL PUMP STATION OPERATOR CHIEF C Siena Luu MD LAB_1 Performing Organization Address City/State/ZIP Code Phon e Number HP CONVERSION documented in this encounter Visit Diagnoses Not on filedocumented in this encounter
--- OUTSIDE RECORDS SUMMARY | 2022-03-25 13:26 | XMS_ITS | Encounter Summary ---
:1940 Author Organization [facility] Address [address] [place] [address] Care Team Providers Name Role Phone Unavailable Primary Care Provider Unavailable Encounter Details Date Type Department Care Team Description 09/22/[address] [facility] 3800 Rashid Luu MD Endocrinology [address] [facility] [address] [place] [address] [place], [place] [address] [phone] Social History Tobacco Use Types Packs/Day Years [...] 1154 Note Time: 09/22/05 0001 Status: Signed Ship Design Teacher: Rashid Luu MD (Physician) NAME: ALEXANDR SOTELO MR: [id number] ACCT: [id number] VISIT: [id number] DICTATING CLINICIAN: Bryn LUU MD JOB: [id number] CLINIC PROGRESS NOTE DATE OF VISIT: 09/22/2005 [...] working okay. CC: SANDRA Yonas MD JACQUI CD:[id number] C: 09/23/05 12:07 DOCUMENT: [id number] 09/28/05: Labs reviewed. FSH and LH missed. [...]
--- OUTSIDE RECORDS SUMMARY | 2022-03-25 13:26 | XMS_ITS | Encounter Summary ---
:1940 Author Organization [facility] Address [address] [place] [address] Care Team Providers Name Role Phone Unavailable Primary Care Provider Unavailable Encounter Details Date Type Department Care Team Description 12/27/2006 Notes/Orders [facility] icine Conversion, User [address] [place] [address] [place], [place] [phone] Social History Tobacco Use Types Packs/Day Years [...]
--- OUTSIDE RECORDS SUMMARY | 2022-03-25 13:26 | XMS_ITS | Encounter Summary ---
:1940 Author Organization [facility] Address [address] [place] [address] Care Team Providers Name Role Phone Unavailable Primary Care Provider Unavailable Encounter Details Date Type Department Care Team Description 04/21/2006 Procedure Visit [facility] 3900 [place], OD Ophthalmology OFF SITE [address] [place] [address] [facility] [address] [phone] Social History Tobacco Use Types Packs/Day Years Used Date Smoking Tobacco: Never Assessed Sex Assigned at Date Recorded Not on file documented as of this encounter Plan of Treatment Not on filedocumented as of this encounter Visit Diagnoses Not on filedocumented in this encounter
--- OUTSIDE RECORDS SUMMARY | 2022-03-25 13:26 | XMS_ITS | Encounter Summary ---
:1940 Author Organization [facility] Address [address] [address] Care Team Providers Name Role Phone Unavailable Primary Care Provider Unavailable Encounter Details Date Type Department Care Team Description 02/15/[address] [facility] [place] [address] [facility] [address] [place] [address] [place] [phone] Social History Tobacco Use Types Packs/Day Years Used Date Smoking Tobacco: Never Assessed Sex Assigned at Date Recorded Not on file documented as of this encounter Plan of Treatment Not on filedocumented as of this encounter Visit Diagnoses Not on filedocumented in this encounter
--- OUTSIDE RECORDS SUMMARY | 2022-03-25 13:26 | XMS_ITS | Encounter Summary ---
:1940 Author Organization [facility] Address [address] [place] [address] Care Team Providers Name Role Phone Unavailable Primary Care Provider Unavailable Reason for Visit Reason Comments Other Encounter Details Date Type Department Care Team Description 08/30/[address] [facility], Message Other [address] [place], [place] [address] Social History Tobacco Use Types Packs/Day Years Used Date Smoking Tobacco: Never Assessed Sex Assigned at Date Recorded Not on file documented as of this encounter [facility], Message - 08/30/2007 1:49 PM CDT Phone Note filed by [employer] at 08/27/101906 Author: [employer] Service: (none) Author Type: (none) Filed: 08/27/101906 Note Time: 08/30/07 1349 Status: Signed Adding Machine Mechanic: [employer] MESSAGE TO CARE TEAM NAME OF CALLER:mo daley #[phone] NAME OF CLINICIAN:jonathan MESSAGE:please call pt [phone] doesnt think insur will cover any longer [...] machine. Acknowledged by DALE LANE on 3:35pm RVISOR ORCHARD documented in this encounter Plan of Treatment Not on filedocumented as of this encounter Visit Diagnoses Not on filedocumented in this encounter
--- OUTSIDE RECORDS SUMMARY | 2022-03-25 13:26 | XMS_ITS | Encounter Summary ---
:1940 Author Organization [facility] Address [address] [place] [address] Care Team Providers Name Role Phone Unavailable Primary Care Provider Unavailable Reason for Visit Reason Comments Other Encounter Details Date Type Department Care Team Description 08/30/2007 Telephone [facility] 3800 [facility], Message Other [address] 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 Comment:- lv-01/18/06 fv-none Pharmacy Seq #:- [phone] Pharmacy Name:- [phone] or City:- [address] Clinician Name:- Jus Drug Name/Strength:- Androgel [...] EMILEE CUMMINGS wrote: Done. Appt reminder sent. CONTROL SPECIALIST documented in this encounter Plan of Treatment Not on filedocumented as of this encounter Visit Diagnoses Not on filedocumented in this encounter
--- OUTSIDE RECORDS SUMMARY | 2022-03-25 13:26 | XMS_ITS | Encounter Summary ---
:1940 Author Organization [facility] Address [address] [place] [address] Care Team Providers Name Role Phone Unavailable Primary Care Provider Unavailable Encounter Details Date Type Department Care Team Description 10/25/2006 Office Visit [place] [address] [place] [address] 9715 [facility] [phone] [facility], [address] Social History Tobacco Use Types Packs/Day Years Used Date Smoking Tobacco: Never Assessed Sex Assigned at Date Recorded Not on file documented as of this encounter Plan of Treatment Not on filedocumented as of this encounter Visit Diagnoses Not on filedocumented in this encounter
--- OUTSIDE RECORDS SUMMARY | 2022-03-25 13:26 | XMS_ITS | Encounter Summary ---
:1940 Author Organization [facility] Address [address] [place] [address] Care Team Providers Name Role Phone Unavailable Primary Care Provider Unavailable Reason for Visit Reason Comments Other Encounter Details Date Type Department Care Team Description 12/14/2006 Telephone [facility] 6500 Stacy Lofton RN Other Gastroenterology 6500 [facility]. [place], [place] [address] Social History Tobacco Use Types Packs/Day Years Used Date Smoking Tobacco: Never Assessed Sex Assigned at Date Recorded Not on file documented as of this encounter Progress Notes Stacy Lofton RN - 12/14/2006 10:20 AM CDT Phone Note filed by Stacy Lofton RN at 08/27/10133 Author: Stacy Lofton RN Service: (none) Author Type: Registered Nurse Filed: 08/27/10133 Note Time: 12/14/06 1020 Status: Signed Satellite Project Site Monitor: Stacy Lofton RN (Registered Nurse) LM on ans.machine asking pt to call for PPA Created on 14Dec2006 10:20am by STACY LOFTON LE TAPE STITCHER [employer] documented in this encounter Plan of Treatment Not on filedocumented as of this encounter Visit Diagnoses Not on filedocumented in this encounter
--- OUTSIDE RECORDS SUMMARY | 2022-03-25 13:26 | XMS_ITS | Encounter Summary ---
:1940 Author Organization [facility] Address [address] [place] [address] Care Team Providers Name Role Phone Unavailable Primary Care Provider Unavailable Encounter Details Date Type Department Care Team Description 12/21/2006 Hospital Encounter Special[facility] 6500 Henrique Barrientos MD [address] [place] [address] Endoscopy Henrique Palacios MD [address] [place] [address] [address] [employer] [place] [address] Social History Tobacco Use Types [...] signed by Henrique Palacios MD at 12/21/06 2541 Author: Henrique Palacios MD Service: (none) Author Type: Physician Filed: 08/29/102058 Note Time: 12/21/06 1050 Status: Signed Adult Neuropsychologist: Henrique Palacios MD (Physician) Patient Name: Mo [...] and oxygen saturations were monitored continuously. The [id number] colonoscope was introduced through the anus and [...] to primary care physician PRN. CPT4 Code(s): 34084, 51, Colonoscopy, flexible, proximal to splenic flexure; with ablation of tumor(s), polyp(s), or other lesion(s) not amenable to removal by hot biopsy forceps, bipolar cautery or snare technique 16407, Colonoscopy, flexible, proximal to splenic flexure; with removal of tumor(s), polyp(s), or other lesion(s) by snare technique 68700, 51, Colonoscopy, flexible, proximal to splenic flexure; with biopsy, single or multiple ICD9 Code(s): 211.3, Benign neoplasm of colon V12.72, Personal history of colonic polyps V76.51, Special screening for malignant neoplasms, colon The codes documented in this report are preliminary and upon certified meeting professional review may be revised to meet current [...] Results Pathology Report (12/21/2006 12:37 PM CDT) [facility] gist Method Time Signature Surgical SEE TEXT No normal HP CONVERSION Pathology range Comment: Patient: MO SOTELO ?S URGICAL PATHOLOGY REPORT Pathology # ??[id number] ?Date Obtained: ? Date Received: DIAGNOSIS: A) ??Colon, cecum and rectum, endoscopic biopsies: ?- Multiple fragments of hyperplast ic polyps, no evidence of adenomatous ?change or malignancy. B) ??Colon, transverse, endoscopic biops ies: ?- Benign polyp, favor sessile serr ated adenoma, no overt adenomatous ?nuclear features. ?Lorena Acevedo M.D. ?(electronic signature) JSM/JSM/beh Date of Report: 12/22/06 Pathology # ??[id number] ?Date Obtained: ? Date Received: ORGAN/TISSUE SITE: ?Cecal rectal polyp/Transverse poly p GROSS DESCRIPTION: A) ??The specimen is labeled cecal recta l polyps and consists of multiple bar[place]ona ?mucosal tissue fragments averaging 0.1 cm in greatest dimension. ??Entirely ?submitted in cassette [id number] A. B) ??The specimen is labeled transverse polyp and consists of a single barahona ?mucosal tissue fragment measuring 0.5 cm in greatest dimension. ??Entirely ?submitted in cassette [id number] B. AMW/ajn MICROSCOPIC DESCRIPTION: A-B) The microscopic [...]
--- OUTSIDE RECORDS SUMMARY | 2022-03-25 13:26 | XMS_ITS | Encounter Summary ---
:1940 Author Organization [facility] Address [address] [place] [address] Care Team Providers Name Role Phone Unavailable Primary Care Provider Unavailable Reason for Visit Reason Comments Other Encounter Details Date Type Department Care Team Description 01/12/2008 Telephone [facility], Message Other [address] [place], [place] [address] Social History Tobacco Use Types Packs/Day Years Used Date Smoking Tobacco: Never Assessed Sex Assigned at Date Recorded Not on file documented as of this encounter Progress Notes Center, Message - 01/12/2008 2:17 PM CDT Phone Note filed by [employer] at 08/28/10457 Author: [employer] Service: (none) Author Type: (none) Filed: 08/28/10457 Note Time: 01/12/081416 Status: Signed 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 Pharmacy Seq #:[phone] Pharmacy Name & Phone #: [facility] Pharmacy Street/City: [place] Comment: NEED A PA Clinician Name:Mony OSMAN Drug Name/Strength:ANDROGEL 1% GEL PCKT Sig: Formulary Alternative Meds from Pharmacy: Insurance Carrier: [employer] [phone] Call Back Phone or Cell Phone: Is [...] is currently looking for new doctor in [place]. [phone] home vm ok. On 13Jan2008 10:55am SANTOS RIVERA wrote: Pharmacy is calling back and would like to know the quantity of the androgel. Pt thought it was the quantity of 30. The pharmacy has 3 packets that was faxed Jan 11. The pharmacy number is [phone] Kei. On 13Jan2008 4:11pm VAUGHN FISHER wrote: PA faxed and pending. On 13Jan2008 4:11pm VAUGHN FISHER wrote: PA faxed and pending. On 16Jan2008 4:43pm SANDRA OSMAN wrote: GOYO SEE NOTE I JUST SENT TO YOU Acknowledged by SANDRA OSMAN on 4:43pm On 16Jan2008 5:00pm GOYO OSMAN wrote: Noted. Acknowledged by GOYO OSMAN on 5:00pm Acknowledged by VAUGHN FISHER on 3:44pm EY WORKER documented in this encounter Plan of Treatment Not on filedocumented as of this encounter Visit Diagnoses Not on filedocumented in this encounter
--- OUTSIDE RECORDS SUMMARY | 2022-03-25 13:26 | XMS_ITS | Encounter Summary ---
:1940 Author Organization [facility] Address [address] [place] [address] Care Team Providers Name Role Phone Unavailable Primary Care Provider Unavailable Reason for Visit Reason Comments Other Encounter Details Date Type Department Care Team Description 01/16/2008 Telephone [facility], Message Other [address] [place] [address] Social History Tobacco Use Types Packs/Day Years Used Date Smoking Tobacco: Never Assessed Sex Assigned at Date Recorded Not on file documented as of this encounter Progress Notes Center, Message - 01/16/2008 11:45 AM CDT Phone Note filed by [employer] at 08/28/10510 Author: [employer] Service: (none) Author Type: (none) Filed: 08/28/10510 Note Time: 01/16/08 1145 Status: Signed Para Professional: [employer] MESSAGE TO CARE TEAM NAME OF CALLER: [facility] [place] NAME OF CLINICIAN: Dr. Sandra Osman MESSAGE: Following up on a fax sent last week PHARMACY PHONE #: [phone] Androgel 1% gel packets. Need to clarify [...] pt states that his insurance changed to [employer], and they do not cover if he go to [facility]. He will go to different [...] message. Acknowledged by GOYO OSMAN on 4:59pm WINDER HAND documented in this encounter Plan of Treatment Not on filedocumented as of this encounter Visit Diagnoses Not on filedocumented in this encounter
--- OUTSIDE RECORDS SUMMARY | 2022-03-25 13:26 | XMS_ITS | Encounter Summary ---
:1940 Author Organization [facility] Address [address] [place] [address] Care Team Providers Name Role Phone Unavailable Primary Care Provider Unavailable Encounter Details Date Type Department Care Team Description 01/18/2006 Office Visit [facility] 3800 Rashid Luu MD Endocrinology [address] [place] [address] [facility] [address] [place] [address] [place], [place] [address] [phone] Social History Tobacco Use Types Packs/Day Years [...] signed by Rashid Luu MD at 01/29/06 6184 Author: Rashid Luu MD Service: (none) Author Type: Physician Filed: 08/29/10 1406 Note Time: 01/18/06 0001 Status: Signed Industrial Servicer: Rashid Luu MD (Physician) NAME: ALEXANDR SOTELO MR: [id number] ACCT: [id number] VISIT: [id number] DICTATING CLINICIAN: Bryn LUU MD JOB: [id number] LOC: 432 CLINIC PROGRESS NOTE DATE OF [...] by his family doctor. CC: Son BeccaMD CD:[id number] C: 01/18/06 14:32 DOCUMENT: [id number] documented in this encounter Plan of Treatment Not on filedocumented as of this encounter Visit Diagnoses Not on filedocumented in this encounter
--- OUTSIDE RECORDS SUMMARY | 2022-03-25 13:26 | XMS_ITS | Encounter Summary ---
:1940 Author Organization [facility] Address [address] [place] [address] Care Team Providers Name Role Phone Unavailable Primary Care Provider Unavailable Encounter Details Date Type Department Care Team Description 11/01/2006 PN Conversion Only [place] [address] [place], [place] [address] (Wo rk) Social History [...] Complete Blood Count-W/Diff (11/01/2006 11:19 AM CDT) [facility] Method Time Signature White Blood Cell [...] - HP CONVERSION Hemoglobin Conc 36.5 gm/dL [place] RDW 12.6 11.0 - HP CONVERSION 15.0 [...] CONVERSION ALT (SGPT) (11/01/2006 11:19 AM CDT) [facility] Method Time Signature Alanine 30 4 [...] Laterality 11/01/2006 11:19 AM CDT Yazan Branham Tainsha [facility] Performing Organization Address City/[facility] Code Phon e Number HP CONVERSION Creatinine / GFR (11/01/2006 11:19 AM CDT) athologist Signature Creatinine 1.0 0.4 - 1.3 HP CONVERSION Serum mg/dL Specimen (Source) Anatomical Collection Method Collection Time Re ceived Time Location / / Volume Laterality 11/01/2006 11:19 AM CDT Yazan Branham Tanisha [facility] Performing Organization Address City/[facility] Phon e Number HP CONVERSION (ABNORMAL) Glucose (11/01/2006 11:19 AM CDT) athologist Signature Length Of Fast 12.0 Hours HP CONVERSION Lab Glucose 119 (H) 60 - 100 HP CONVERSION mg/dL Specimen (Source) Anatomical Collection Method Collection Time Re ceived Time Location / / Volume Laterality 11/01/2006 11:19 AM CDT Yazan Branham Tanisha [facility] Performing Organization Address [facility] Phon e Number HP CONVERSION (ABNORMAL) Electrolytes [...] Branham Tanisha [facility] Performing Organization Address City/[facility] Code Phon e Number HP CONVERSION (ABNORMAL) Lipid Panel and Direct LDL(If Needed) (11/01/2006 11:19 AM CDT) [facility] Method Time Signature Length Of Fast [...] Routine(Micro If Pos) (11/01/2006 11:19 AM CDT) [facility] Method Time Signature Turbidity Clear No normal [...] Specific 1.015 1.005 - 25 HP CONVERSION [place] Specimen (Source) Anatomical Collection Method Collection Time [...]
--- OUTSIDE RECORDS SUMMARY | 2022-03-25 13:26 | XMS_ITS | Encounter Summary ---
:1940 Author Organization [facility] Address [address] [place] [address] Care Team Providers Name Role Phone Unavailable Primary Care Provider Unavailable Reason for Visit Reason Comments Other Encounter Details Date Type Department Care Team Description 10/07/2005 Telephone [facility], Message Other [address] [place] [address] Social History Tobacco Use Types Packs/Day Years Used Date Smoking Tobacco: Never Assessed Sex Assigned at Date Recorded Not on file documented as of this encounter Progress Notes Center, Message - 10/07/2005 9:31 AM CDT Phone Note filed by [employer] at 08/26/10 0434 Author: [employer] Service: (none) Author Type: (none) Filed: 08/26/10 0434 Note Time: 10/07/05930 Status: Signed 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 Comment:- Pharmacy Seq #:-[phone] Pharmacy Name:-[facility] [place] or City:[facility] Clinician Name:-Tanisha Drug Name/Strength:-Norvasc 2.5 mg tabs. Sig:-Take 1 tab daily. Quantity:-90 Last Fill:-05/08/05 Created on 07Oct2005 9:31am by GIOVANNA KHAN J On 07Oct2005 4:52pm KATJA GRIFFITH wrote: RX faxed. GENCY DEPARTMENT DIRECTOR documented in this encounter Plan of Treatment Not on filedocumented as of this encounter Visit Diagnoses Not on filedocumented in this encounter
--- OUTSIDE RECORDS SUMMARY | 2022-03-25 13:26 | XMS_ITS | Encounter Summary ---
:1940 Author Organization [facility] Address [address] [place] [address] Care Team Providers Name Role Phone Unavailable Primary Care Provider Unavailable Reason for Visit Reason Comments Other Encounter Details Date Type Department Care Team Description 01/11/2008 Telephone [facility], Message Other [address] [place], [place] [address] Social History Tobacco Use Types Packs/Day Years Used Date Smoking Tobacco: Never Assessed Sex Assigned at Date Recorded Not on file documented as of this encounter Progress Notes Center, Message - 01/11/2008 10:21 AM CDT Phone Note filed by USEREADY at 08/28/10447 Author: USEREAD[employer] Service: (none) Author Type: (none) Filed: 08/28/10447 Note Time: 01/11/08 1021 Status: Signed Business Controller: USEREADY Medication Issue/Refill Caller Name/Relationship:Mo Primary Trauma Registrar:Tanisha Comment/Symptom:pt states he needs a refill Pharmacy Name & Phone #:[facility] [phone] or City:[place] Drug Name:testosterone Strength:1% Dose/Route/Freq:1 package every other day Major Assembler:pt Best call back number:[phone] Is it OK to leave a confidential [...] Luu and was denied. Please advise/address.Thanks. On [id number] 9:40am SANDRA OSMAN Yonas wrote: GOYO CALL HIM. I REFILL FOR 1 MONTH. RX ON PRINTER. HE IS DUE FOR FOLLOW UP VISIT WITH ME. I WILL NOT FURTHER REFILL HIS MEDS UNLESS HE COMES IN. Acknowledged by SANDRA OSMAN on ep 9:40am On 12Jan2008 12:05pm GOYO OSMAN wrote: Pt called and left above message on voice mail, #[phone] given to call back if have question, Rx faxed to [facility]. Acknowledged by GOYO OSMAN on 12:05pm GN ANALYST documented in this encounter Plan of Treatment Not on filedocumented as of this encounter Visit Diagnoses Not on filedocumented in this encounter
--- OUTSIDE RECORDS SUMMARY | 2022-03-25 13:26 | XMS_ITS | Encounter Summary ---
:1940 Author Organization [facility] Address [address] [place] [address] Care Team Providers Name Role Phone Unavailable Primary Care Provider Unavailable Reason for Visit Reason Comments Other Encounter Details Date Type Department Care Team Description 12/16/2006 Telephone Special[facility] 6500 Stacy Lofton RN Other Gastroenterology 6500 [facility]. [place], [place] [address] Social History Tobacco Use Types Packs/Day Years Used Date Smoking Tobacco: Never Assessed Sex Assigned at Date Recorded Not on file documented as of this encounter Progress Notes Stacy Lofton RN - 12/16/2006 9:57 AM CDT Phone Note filed by Stacy Lofton RN at 08/27/10144 Author: Stacy Lofton RN Service: (none) Author Type: Registered Nurse Filed: 08/27/10144 Note Time: 12/16/06956 Status: Signed Electric Deicer Inspector: Stacy Lofton RN (Registered Nurse) PPA completed/instructions reviewed for colonoscopy Created on 16Dec2006 9:57am by STACY LOFTON ING AND REGULATING TECHNICIAN documented in this encounter Plan of Treatment Not on filedocumented as of this encounter Visit Diagnoses Not on filedocumented in this encounter
--- OUTSIDE RECORDS SUMMARY | 2022-03-25 13:26 | XMS_ITS | Encounter Summary ---
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 We spent the remainder [...] on counseling this patient regarding glucose intolerance. SHN:[id number] C: 08/25/05 10:56 DOCUMENT: [id number] documented in this encounter Plan of Treatment Not on filedocumented as of this encounter Visit Diagnoses Not on filedocumented in this encounter
--- OUTSIDE RECORDS SUMMARY | 2022-03-25 13:26 | XMS_ITS | Encounter Summary ---
:1940 Author Organization [facility] Address [address] [place] [address] Care Team Providers Name Role Phone Unavailable Primary Care Provider Unavailable Encounter Details Date Type Department Care Team Description 09/04/2005 Nursing Visit [facility] Yazan Garay MD [facility] [address] [facility] [address] [place] [address] [place] [address] [phone] Social History Tobacco Use Types Packs/Day Years [...]
--- OUTSIDE RECORDS SUMMARY | 2022-03-25 13:26 | XMS_ITS | Encounter Summary ---
:1940 Author Organization [facility] Address [address] [place] [address] Care Team Providers Name Role Phone Unavailable Primary Care Provider Unavailable Reason for Visit Reason Comments Other Encounter Details Date Type Department Care Team Description 04/22/2006 Telephone [facility], Message Other [address] [place], [place] [address] Social History Tobacco Use Types Packs/Day Years Used Date Smoking Tobacco: Never Assessed Sex Assigned at Date Recorded Not on file documented as of this encounter Progress Notes Lissette Lentz - 04/22/2006 9:11 AM CST Phone Note filed by Lissette Lentz RN at 08/26/101212 Author: Lissette Lentz RN Service: (none) Author Type: Registered Nurse Filed: 08/26/101212 Note Time: 04/22/06 0911 Status: Signed Commodities Trader: Lissette Lentz RN (Registered Nurse) Grant has BC/BS insurance. Viagra isn't covered. He call his Ins. and they told him to call for something else, but didn't tell him what is covered. Uses our pharmacy. Call him at:[phone]...message ok. Created on 22Apr2006 9:11am by LISSETTE LENTZ R On 22Apr2006 9:57am SANDRA OSMAN wrote: TRY CIALIS. SEE RX Acknowledged by OSMANSANDRA ARREOLA on 9:57am On 22Apr2006 10:38am YAZMIN TRAYLOR wrote: rx faxed to our pharmacy. patient called message left advising of above. Acknowledged by YAZMIN TRAYLOR on 10:38am MANAGER documented in this encounter Plan of Treatment Not on filedocumented as of this encounter Visit Diagnoses Not on filedocumented in this encounter
--- OUTSIDE RECORDS SUMMARY | 2022-03-25 13:26 | XMS_ITS | Encounter Summary ---
:1940 Author Organization [facility] Address [address] [place] [address] Care Team Providers Name Role Phone Unavailable Primary Care Provider Unavailable Reason for Visit Reason Comments Other Encounter Details Date Type Department Care Team Description 01/11/2008 Telephone [facility] [address] [place], Message Other [address] [place], [place] [address] Social History Tobacco Use Types Packs/Day Years Used Date Smoking Tobacco: Never Assessed Sex Assigned at Date Recorded Not on file documented as of this encounter Progress Notes Genny Echeverria - 01/11/2008 8:57 AM CDT Phone Note filed by Genny Echeverria at 08/28/10446 Author: Genny Echeverria Service: (none) Author Type: (none) Filed: 08/28/10446 Note Time: 01/11/08856 Status: Signed Rec Therapist: Imr Conversion Prescription Refill Please provide enough refills to last until patient's next visit. Comment:- lv 04-27-06 fv none Pharmacy Seq #:- [phone] Pharmacy Name:- [facility] [phone] or City:[address] Clinician Name:- Jus Drug Name/Strength:- Androgel 1% (50mg) Gel Pckt Sig: Dose/Route/Freq:- Apply one and one-half packets to skin daily Quantity & Last Fill:- #150 08-29-08 Created on 11Jan2008 8:57am by GENNY LOPEZ On [id number] 9:00am EMILEE CUMMINGS wrote: Refill denial sent to the pharmacy. L DESK CLERK documented in this encounter Plan of Treatment Not on filedocumented as of this encounter Visit Diagnoses Not on filedocumented in this encounter
--- OUTSIDE RECORDS SUMMARY | 2022-03-25 13:26 | XMS_ITS | Encounter Summary ---
:1940 Author Organization [facility] Address [address] [place] [address] Care Team Providers Name Role Phone Unavailable Primary Care Provider Unavailable Reason for Visit Reason Comments Other Encounter Details Date Type Department Care Team Description 04/20/2006 Telephone [facility], Message Other [address] [employer] [place], [place] [address] Social History Tobacco Use Types Packs/Day Years Used Date Smoking Tobacco: Never Assessed Sex Assigned at Date Recorded Not on file documented as of this encounter Progress Notes Sandra Osman MD - 04/20/2006 3:02 PM CST Phone Note filed by Sandra Osman MD at 08/26/10 060 Author: Sandra Osman MD Service: (none) Author Type: Physician Filed: 08/26/101207 Note Time: 04/20/06 1502 Status: Signed Stone Sandblaster: Sandra Osman MD (Physician) YAZMIN CALL HIM. [...] above. Acknowledged by YAZMIN TRAYLOR on 4:36pm NSED MARRIAGE AND FAMILY THERAPIST documented in this encounter Plan of Treatment Not on filedocumented as of this encounter Visit Diagnoses Not on filedocumented in this encounter
--- OUTSIDE RECORDS SUMMARY | 2022-03-25 13:26 | XMS_ITS | Encounter Summary ---
:1940 Author Organization [facility] Address [address] [place] [address] Care Team Providers Name Role Phone Unavailable Primary Care Provider Unavailable Encounter Details Date Type Department Care Team Description 01/07/2006 PN Conversion Only PROTESTANT CONVERSION Rashid Luu MD [address] [place] [address] (Wo rk) Social History Tobacco [...]
--- OUTSIDE RECORDS SUMMARY | 2022-03-25 13:26 | XMS_ITS | Encounter Summary ---
:1940 Author Organization [facility] Address [address] [place] [address] Care Team Providers Name Role Phone Unavailable Primary Care Provider Unavailable Reason for Visit Reason Comments Other Encounter Details Date Type Department Care Team Description 09/04/2005 Telephone [place] [facility] Sandra Osman MD Other Medicine [address] [facility] [address] [place] [address] [place], [place] [address] [phone] Social History Tobacco Use Types Packs/Day Years Used Date Smoking Tobacco: Never Assessed Sex Assigned at Date Recorded Not on file documented as of this encounter Progress Notes Ex[facility], Message - 09/04/2005 3:19 PM CDT Phone Note filed by [employer] at 08/26/10 032 Author: [employer] Service: (none) Author Type: (none) Filed: 08/26/10 0325 Note Time: 09/04/051518 Status: Signed Device Test Engineer: Message [facility] Hi! please see on-line vital sign flowsheet for today's blood pressure readings. thanx! Created on 04Sep2005 3:19pm by KAREN DUNN Acknowledged by SANRDA OSMAN on 3:23pm ENT CARE PROVIDER documented in this encounter Plan of Treatment Not on filedocumented as of this encounter Visit Diagnoses Not on filedocumented in this encounter
--- OUTSIDE RECORDS SUMMARY | 2022-03-25 13:26 | XMS_ITS | Encounter Summary ---
:1940 Author Organization [facility] Address [address] [place] [address] Care Team Providers Name Role Phone Unavailable Primary Care Provider Unavailable Reason for Visit Reason Comments Other Encounter Details Date Type Department Care Team Description 03/24/2006 Telephone CONV [id number] [facility], Message Other [address] [place] [address] Social History Tobacco Use Types Packs/Day Years Used Date Smoking Tobacco: Never Assessed Sex Assigned at Date Recorded Not on file documented as of this encounter Progress Notes Aire[facility], Message - 03/24/2006 11:00 AM CST Phone Note filed by [employer] at 08/26/10 1047 Author: [employer] Service: (none) Author Type: (none) Filed: 08/26/10 1047 Note Time: 03/24/06 1100 Status: Signed Pipe Stripper: [employer] GI dept mailed letter reminding pt to schedule f/u colonoscopy due in Jun 2006. Created on 24Mar2006 11:00am by MIKE MARTINEZ VELOPMENT MANAGER documented in this encounter Plan of Treatment Not on filedocumented as of this encounter Visit Diagnoses Not on filedocumented in this encounter
--- OUTSIDE RECORDS SUMMARY | 2022-03-25 13:27 | XMS_ITS | Encounter Summary ---
:1940 Author Organization [facility] Address [address] [place] [address] Care Team Providers Name Role Phone Unavailable Primary Care Provider Unavailable Reason for Visit Reason Comments Other Encounter Details Date Type Department Care Team Description 08/06/2005 Telephone [facility], Message Other [address] [place] [address] Social History Tobacco Use Types Packs/Day Years Used Date Smoking Tobacco: Never Assessed Sex Assigned at Date Recorded Not on file documented as of this encounter Progress Notes [facility], Message - 08/06/2005 3:38 PM CST Phone Note filed by [employer] at 08/26/10219 Author: [employer] Service: (none) Author Type: (none) Filed: 08/26/10219 Note Time: 08/06/05 1538 Status: Signed Shank Carrier: [facility] Lab letter to patient per . Several abnormal labs. Please schedule an appointment to discuss. Letter mailed. Created on 06Aug2005 3:38pm by SALLY ROSE GER DRILLING documented in this encounter Plan of Treatment Not on filedocumented as of this encounter Visit Diagnoses Not on filedocumented in this encounter
--- OUTSIDE RECORDS SUMMARY | 2022-03-25 13:27 | XMS_ITS | Encounter Summary ---
:1940 Author Organization [facility] Address [address] [place] [address] Care Team Providers Name Role Phone Unavailable Primary Care Provider Unavailable Reason for Visit Reason Comments Other Encounter Details Date Type Department Care Team Description 01/28/2005 Telephone [place] [facility] Jose Antonio Rodgers MBBS Other Medicine [address] [address] [place], [place] [address] [phone] Social History Tobacco Use Types Packs/Day Years Used Date Smoking Tobacco: Never Assessed Sex Assigned at Date Recorded Not on file documented as of this encounter Progress Notes Eyad Bui - 01/28/2005 10:49 AM CDT Phone Note filed by [employer] at 08/25/102046 Author: [employer] Service: (none) Author Type: (none) Filed: 08/25/102046 Note Time: 01/28/051048 Status: Signed Student Activities Director: Message itBit Mo B/Juan check on 01/28 122/78 R. arm P 88 Created on 28Jan2005 10:49am by YAZMIN TRAYLOR Acknowledged by JOSE ANTONIO RODGERS on 10:33am Y CARVER documented in this encounter Plan of Treatment Not on filedocumented as of this encounter Visit Diagnoses Not on filedocumented in this encounter
--- OUTSIDE RECORDS SUMMARY | 2022-03-25 13:27 | XMS_ITS | Encounter Summary ---
:1940 Author Organization [facility] Address [address] [place] [address] Care Team Providers Name Role Phone Unavailable Primary Care Provider Unavailable Encounter Details Date Type Department Care Team Description 01/02/2005 Nursing Visit [place] [facility] Jose Antonio Carolina, JOYCE Medicine [address] [facility] [address] [place] [address] [place] [address] [phone] Social History Tobacco Use Types Packs/Day Years [...]
--- OUTSIDE RECORDS SUMMARY | 2022-03-25 13:27 | XMS_ITS | Encounter Summary ---
:1940 Author Organization [facility] Address [address] [place] [address] Care Team Providers Name Role Phone Unavailable Primary Care Provider Unavailable Reason for Visit Reason Comments Other Encounter Details Date Type Department Care Team Description 01/02/2005 Telephone [place] [facility] Jose Antonio Rodgers MBBS Other Medicine [address] [address] [place], [place] [address] [phone] Social History Tobacco Use Types Packs/Day Years Used Date Smoking Tobacco: Never Assessed Sex Assigned at Date Recorded Not on file documented as of this encounter Progress Notes Sarah Valenzuela - 01/02/2005 10:10 AM CDT Phone Note filed by Sarah Valenzuela LPN at 08/25/102009 Author: Sarah Valenzuela LPN Service: (none) Author Type: (none) Filed: 08/25/102009 Note Time: 01/02/05 1010 Status: Signed Needle Loom Operator: Imr Conversion Please see vital sign viewer for Pt's Bp reading today. Created on 02Jan2005 10:10am by SARAH AVLENZUELA Acknowledged by JOSE ANTONIO RODGERS on 12:07pm [facility] NURSING DIRECTOR documented in this encounter Plan of Treatment Not on filedocumented as of this encounter Visit Diagnoses Not on filedocumented in this encounter
--- OUTSIDE RECORDS SUMMARY | 2022-03-25 13:27 | XMS_ITS | Encounter Summary ---
:1940 Author Organization [facility] Address [address] [place] [address] Care Team Providers Name Role Phone Unavailable Primary Care Provider Unavailable Encounter Details Date Type Department Care Team Description 12/03/2004 Nursing Visit [place] [facility] Jose Antonio Carolina, JOYCE Medicine 6[address] [facility] [address] [place] [address] [place] [address] [phone] Social History Tobacco Use Types Packs/Day Years [...]
--- OUTSIDE RECORDS SUMMARY | 2022-03-25 13:27 | XMS_ITS | Encounter Summary ---
:1940 Author Organization [facility] Address [address] [place] [address] Care Team Providers Name Role Phone Unavailable Primary Care Provider Unavailable Reason for Visit Reason Comments Other Encounter Details Date Type Department Care Team Description 06/03/2005 Telephone [place] [facility] Jose Antonio Rodgers MBBS Other Medicine [address] [place] [address] [place] [address] [phone] Social History Tobacco Use Types Packs/Day Years Used Date Smoking Tobacco: Never Assessed Sex Assigned at Date Recorded Not on file documented as of this encounter Progress Notes [place], Message - 06/03/2005 12:11 PM CST Phone Note filed by [employer] at 08/26/108 Author: [employer] Service: (none) Author Type: (none) Filed: 08/26/108 Note Time: 06/03/051210 Status: Signed Motion Study Technician: Message [employer] Hi! please see on-line vital sign flowsheet for today's blood pressure reading.Thanx! Created on 03Jun2005 12:11pm by KAREN DUNN Acknowledged by JOSE ANTONIO RODGERS on 1:11pm ASE CASE MANAGER documented in this encounter Plan of Treatment Not on filedocumented as of this encounter Visit Diagnoses Not on filedocumented in this encounter
--- OUTSIDE RECORDS SUMMARY | 2022-03-25 13:27 | XMS_ITS | Encounter Summary ---
:1940 Author Organization [facility] Address [address] [place] [address] Care Team Providers Name Role Phone Unavailable Primary Care Provider Unavailable Encounter Details Date Type Department Care Team Description 05/06/2005 Nursing Visit [place] [facility] Juan Antonio, Caleb martínez MD Medicine [address] [address] [facility] [address] [place] [address] [place], [place] [phone] (Wo rk) Social History Tobacco Use Types Packs/Day Years Used Date Smoking Tobacco: Never Assessed Sex Assigned at Date Recorded Not on file documented as of this encounter Plan of Treatment Not on filedocumented as of this encounter Visit Diagnoses Not on filedocumented in this encounter
--- OUTSIDE RECORDS SUMMARY | 2022-03-25 13:27 | XMS_ITS | Encounter Summary ---
:1940 Author Organization [facility] Address [address] [place] [address] Care Team Providers Name Role Phone Unavailable Primary Care Provider Unavailable Encounter Details Date Type Department Care Team Description 10/31/2004 Nursing Visit [place] [facility] Jose Antonio Carolina, JORDANABS Medicine 6500 [facility] [address] [place] [address] [place] [address] [phone] Social History Tobacco Use Types Packs/Day Years [...]
--- OUTSIDE RECORDS SUMMARY | 2022-03-25 13:27 | XMS_ITS | Encounter Summary ---
:1940 Author Organization [facility] Address [address] [place] [address] Care Team Providers Name Role Phone Unavailable Primary Care Provider Unavailable Encounter Details Date Type Department Care Team Description 03/09/2005 Nursing Visit [place] [facility] Juan Antonio, Caleb martínez MD Medicine [address] [place] [address] [address] [facility] [address] [place] [address] [place], [place] [phone] (Wo rk) Social History Tobacco Use Types Packs/Day Years Used Date Smoking Tobacco: Never Assessed Sex Assigned at Date Recorded Not on file documented as of this encounter Plan of Treatment Not on filedocumented as of this encounter Visit Diagnoses Not on filedocumented in this encounter
--- OUTSIDE RECORDS SUMMARY | 2022-03-25 13:27 | XMS_ITS | Encounter Summary ---
:1940 Author Organization [facility] Address [address] [place] [address] Care Team Providers Name Role Phone Unavailable Primary Care Provider Unavailable Encounter Details Date Type Department Care Team Description 07/06/2005 Nursing Visit [place] [facility] [place], Radha Ortiz MD [facility] [address] [place] [address] [phone] Social History Tobacco Use Types Packs/Day Years Used Date Smoking Tobacco: Never Assessed Sex Assigned at Date Recorded Not on file documented as of this encounter Last Filed Vital Signs Vital Sign Reading Time Taken Comments Blood Pressure 116/78 07/06/2005 11:00 AM CRT Pulse 72 07/06/2005 10:58 AM CRT C: Radia l Regular Temperature - - Respiratory Rate - - Oxygen Saturation - - Inhaled Oxygen Concentration - - Weight - - Height - - Body Mass Index - - documented in this encounter Plan of Treatment Not on filedocumented as of this encounter Visit Diagnoses Not on filedocumented in this encounter
--- OUTSIDE RECORDS SUMMARY | 2022-03-25 13:27 | XMS_ITS | Encounter Summary ---
:1940 Author Organization [facility] Address [address] [place] [address] Care Team Providers Name Role Phone Unavailable Primary Care Provider Unavailable Reason for Visit Reason Comments Other Encounter Details Date Type Department Care Team Description 07/06/2005 Telephone [facility], Message Other [address] [place], [place] [address] Social History Tobacco Use Types Packs/Day Years Used Date Smoking Tobacco: Never Assessed Sex Assigned at Date Recorded Not on file documented as of this encounter Progress Notes [facility], Message - 07/06/2005 12:51 PM CST Phone Note filed by [employer] at 08/26/10108 Author: [employer] Service: (none) Author Type: (none) Filed: 08/26/10108 Note Time: 07/06/05 1251 Status: Signed Instructor Physical: Message [employer] Hi! this is a patient of Dr [...] 1:18pm Acknowledged by KAREN DUNN on 3:27pm STANT CORPORATE SECRETARY documented in this encounter Plan of Treatment Not on filedocumented as of this encounter Visit Diagnoses Not on filedocumented in this encounter
--- OUTSIDE RECORDS SUMMARY | 2022-03-25 13:27 | XMS_ITS | Encounter Summary ---
:1940 Author Organization [facility] Address [address] [place] [address] Care Team Providers Name Role Phone Unavailable Primary Care Provider Unavailable Reason for Visit Reason Comments Other Encounter Details Date Type Department Care Team Description 08/10/2005 Telephone [facility], Message Other [address] [place], [place] [address] Social History Tobacco Use Types Packs/Day Years Used Date Smoking Tobacco: Never Assessed Sex Assigned at Date Recorded Not on file documented as of this encounter Progress Notes Genny Smith - 08/10/2005 8:37 AM CDT Phone Note filed by Genny Smith RN at 08/26/10222 Author: Genny Smith RN Service: (none) Author Type: (none) Filed: 08/26/10222 Note Time: 08/10/05836 Status: Signed Fuselage Framer: Imr Conversion MESSAGE TO CARE TEAM NAME [...] NAME: PHARMACY PHONE #: CALL BACK PHONE #:[phone],h BEST TIME TO CALL BACK: Is it [...] seen. Acknowledged by SALLY ROSE on 9:24am RAISING COORDINATOR documented in this encounter Plan of Treatment Not on filedocumented as of this encounter Visit Diagnoses Not on filedocumented in this encounter
--- OUTSIDE RECORDS SUMMARY | 2022-03-25 13:27 | XMS_ITS | Encounter Summary ---
:1940 Author Organization [facility] Address [address] [place] [address] Care Team Providers Name Role Phone Unavailable Primary Care Provider Unavailable Encounter Details Date Type Department Care Team Description 08/03/2005 PN Conversion Only [place] [address] [place], [place] [address] (Wo rk) Social History Tobacco Use Types Packs/Day Years Used Date Smoking Tobacco: Never Assessed Sex Assigned at Date Recorded Not on file documented as of this encounter Plan of Treatment Not on filedocumented as of this encounter Procedures Procedure Name Priority Date/Time Associated Comments Diagnosis HIV ANTIBODY Routine 08/03/2005 10:55 Results for this AM ELECTRONICS TEACHER procedure are i n the results section. GLUCOSE Routine 08/03/2005 10:55 Results for this AM ELECTRONICS TEACHER procedure are i n the results section. THYROID STIMULATING Routine 08/03/2005 10:55 Resu lts for this HORMONE AM ELECTRONICS TEACHER procedure are i n the results section. LIPID PANEL AND Routine 08/03/2005 10:55 Results for this DIRECT LDL(IF NEEDED) AM ELECTRONICS TEACHER proced ure are in the results section. CREATININE / GFR Routine 08/03/2005 10:55 Results for this AM ELECTRONICS TEACHER procedure are i n the results section. COMPLETE BLOOD Routine 08/03/2005 10:55 Results f or this COUNT-W/DIFF AM ELECTRONICS TEACHER procedure are i n the results section. PROSTATIC SPECIFIC Routine 08/03/2005 10:55 Resul ts for this ANTIGEN(SCREEN) AM ELECTRONICS TEACHER procedure ar e in the results section. HGB A1C Routine 08/03/2005 10:55 Results for this AM ELECTRONICS TEACHER procedure are i n the results section. ALT (SGPT) Routine 08/03/2005 10:55 Results for this AM ELECTRONICS TEACHER procedure are i n the results section. POTASSIUM Routine 08/03/2005 10:55 Results for this AM ELECTRONICS TEACHER procedure are i n the results section. URINALYSIS COMPLETE Routine 08/03/2005 10:47 Resu lts for this AM ELECTRONICS TEACHER procedure are i n the results section. documented in this encounter Results (ABNORMAL) Complete Blood Count-W/Diff (08/03/2005 10:55 AM ELECTRONICS TEACHER) [facility] Method Time Signature White Blood Cell 6.5 [...] - HP CONVERSION Hemoglobin Conc 36.5 gm/dL [place] RDW 13.5 11.0 - HP CONVERSION 15.0 [...] / / Volume Laterality 08/03/2005 10:55 AM ELECTRONICS TEACHER Yazan Garay MD LAB_1 Performing Organization Address City/State/ZIP Code Phon e Number HP CONVERSION ALT (SGPT) (08/03/2005 10:55 AM ELECTRONICS TEACHER) [facility] Method Time Signature Alanine 65 0 - 65 HP CONVERSION Aminotransferase U/L Specimen (Source) Anatomical Collection Method Collection Time Re ceived Time Location / / Volume Laterality 08/03/2005 10:55 AM ELECTRONICS TEACHER Yazan Branham Tanisha LEE LAB_1 Performing Organization Address City[facility] Code Phon e Number HP CONVERSION Creatinine / GFR (08/03/2005 10:55 AM ELECTRONICS TEACHER) athologist Signature Creatinine 1.0 0.5 - 1.5 HP CONVERSION Serum mg/dL Specimen (Source) Anatomical Collection Method Collection Time Re ceived Time Location / / Volume Laterality 08/03/2005 10:55 AM ELECTRONICS TEACHER Yazan Branham Tanisha LEE LAB_1 Performing Organization Address [facility] Phon e Number HP CONVERSION (ABNORMAL) Glucose (08/03/2005 10:55 AM ELECTRONICS TEACHER) athologist Signature Lab Glucose 113 (H) 60 - 100 HP CONVERSION mg/dL Specimen (Source) Anatomical Collection Method Collection Time Re ceived Time Location / / Volume Laterality 08/03/2005 10:55 AM ELECTRONICS TEACHER Yazan Branham Tanisha LEE LAB_1 Performing Organization Address [facility] Phon e Number HP CONVERSION Potassium (08/03/2005 10:55 AM ELECTRONICS TEACHER) athologist Signature Potassium 4.6 3.5 - 5.2 HP CONVERSION meq/L Specimen (Source) Anatomical Collection Method Collection Time Re ceived Time Location / / Volume Laterality 08/03/2005 10:55 AM ELECTRONICS TEACHER Yazan Branham Tanisha LEE LAB_1 Performing Organization Address [facility] Code Phon e Number HP CONVERSION (ABNORMAL) Lipid Panel and Direct LDL(If Needed) (08/03/2005 10:55 AM ELECTRONICS TEACHER) [facility] gist Method Time Signature Cholesterol/HDL 4.7 [...] / / Volume Laterality 08/03/2005 10:55 AM ELECTRONICS TEACHER Yazan Branham Tanisha LEE LAB_1 Performing Organization Address City/[facility] Code Phon e Number HP CONVERSION (ABNORMAL) Hgb A1c (08/03/2005 10:55 AM ELECTRONICS TEACHER) athologist Signature HGB A1C 6.3 (H) <6.0 % HP CONVERSION Specimen (Source) Anatomical Collection Method Collection Time Re ceived Time Location / / Volume Laterality 08/03/2005 10:55 AM ELECTRONICS TEACHER Yazan Branham Tanisha LEE LAB_1 Performing Organization Address City/[facility]/ZIP Code Phon e Number HP CONVERSION Prostatic Specific Antigen (Screen) (08/03/2005 10:55 AM ELECTRONICS TEACHER) athologist Signature Prostate 1.1 0.0 - 4.0 HP CONVERSION Specific ng/mL Antigen Specimen (Source) Anatomical Collection Method Collection Time Re ceived Time Location / / Volume Laterality 08/03/2005 10:55 AM ELECTRONICS TEACHER Yazan Branham Tanisha LEE LAB_1 Performing Organization Address [facility] Code Phon e Number HP CONVERSION Thyroid Stimulating Hormone (08/03/2005 10:55 AM ELECTRONICS TEACHER) athologist Signature Thyroid 0.97 0.20 - HP CONVERSION Stimulating 4.50 Hormone uIU/mL Specimen (Source) Anatomical Collection Method Collection Time Re ceived Time Location / / Volume Laterality 08/03/2005 10:55 AM ELECTRONICS TEACHER Yazan Branham Tanisha LEE LAB_1 Performing Organization Address City/[facility]/ZIP Code Phon e Number HP CONVERSION HIV Antibody (08/03/2005 10:55 AM ELECTRONICS TEACHER) athologist Signature HIV 1/HIV 2 Non Reac Non Reac HP CONVERSION Specimen (Source) Anatomical Collection Method Collection Time Re ceived Time Location / / Volume Laterality 08/03/2005 10:55 AM ELECTRONICS TEACHER Yazan Branham Tanisha LEE LAB_1 Performing Organization Address City/State/ZIP Code Phon e Number HP CONVERSION (ABNORMAL) Urinalysis Complete (08/03/2005 10:47 AM ELECTRONICS TEACHER) [facility] Method Time Signature Glucose, Negative Neg-Trac HP CONVERSION Qualitative U Protein Urine Negative Neg-Trac HP CONVERSION Ketones Negative Negative HP CONVERSION U BILI Negative Negative HP CONVERSION U Specific 1.015 1.005 - 25 HP CONVERSION [place] Blood Urine Trace (A) Negative HP CONVERSION [...] / / Volume Laterality 08/03/2005 10:47 AM ELECTRONICS TEACHER Yazan Yonas Tanisha LEE LAB_1 Performing Organization Address City/State/ZIP Code Phon e Number HP CONVERSION documented in this encounter Visit Diagnoses Not on filedocumented in this encounter
--- OUTSIDE RECORDS SUMMARY | 2022-03-25 13:27 | XMS_ITS | Encounter Summary ---
:1940 Author Organization [facility] Address [address] [place] [address] Care Team Providers Name Role Phone Unavailable Primary Care Provider Unavailable Encounter Details Date Type Department Care Team Description 08/03/2005 Nursing Visit [place] [facility] Yazan Garay MD [facility] [address] [facility] [address] [place] [address] [place] [address] [phone] Social History Tobacco Use Types Packs/Day Years Used Date Smoking Tobacco: Never Assessed Sex Assigned at Date Recorded Not on file documented as of this encounter Last Filed Vital Signs Vital Sign Reading Time Taken Comments Blood Pressure 142/84 08/03/2005 9:24 AM SURVEILLANCE DUAL RATE OFFICER Pulse 80 08/03/2005 9:24 AM SURVEILLANCE DUAL RATE OFFICER Temperature - - Respiratory Rate - - Oxygen Saturation - - Inhaled Oxygen Concentration - - Weight 97.5 kg (214 lb 15.9 oz) 08/03/2005 9:24 AM C: 9 7.5kg SURVEILLANCE DUAL RATE OFFICER Height 177.8 cm (5' 10) 08/03/2005 9:24 AM C: 177.8cm SURVEILLANCE DUAL RATE OFFICER Body Mass Index 30.85 08/03/2005 9:24 AM SURVEILLANCE DUAL RATE OFFICER documented in this encounter Plan of Treatment Not on filedocumented as of this encounter Visit Diagnoses Not on filedocumented in this encounter
--- OUTSIDE RECORDS SUMMARY | 2022-03-25 13:27 | XMS_ITS | Encounter Summary ---
:1940 Author Organization [facility] Address [address] [place] [address] Care Team Providers Name Role Phone Unavailable Primary Care Provider Unavailable Encounter Details Date Type Department Care Team Description 08/03/2005 Office Visit [place] [facility] Sandra Osman MD [address] [address] [place] [address] [place], [place] [address] [phone] Social History Tobacco Use Types Packs/Day Years Used Date Smoking Tobacco: Never Assessed Sex Assigned at Date Recorded Not on file documented as of this encounter Progress Notes Sandra Osman MD - 08/03/2005 12:01 AM CST H&P signed by Sandra Osman MD at 08/23/05 2115 Author: Sandra Osman MD Service: (none) Author Type: Physician Filed: 08/29/10 1051 Note Time: 08/03/05 0001 Status: Signed Weigher Alloy: Sandra Osman MD (Physician) NAME: ALEXANDR SOTELO MR: [id number] ACCT: [id number] VISIT: [id number] DICTATING CLINICIAN: SANDRA OSMAN MD JOB: [id number] CLINIC PHYSICAL DATE OF VISIT: 08/03/2005 SUBJECTIVE: [...] day. 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 His smoking history, as [...] Deep tendon reflexes symmetrical. Both toes downgoing. Anwvoh-yv-qnad without dysmetria. Romberg stable, gait steady. ASSESSMENT: [...] is likely due to hemorrhoid. I recommend [id number] Preparation H and Cortaid. Return if symptoms persist or worsen. SHN:[id number] C: 08/04/05 12:05 DOCUMENT: [id number] documented in this encounter Plan of Treatment Not on filedocumented as of this encounter Visit Diagnoses Not on filedocumented in this encounter
--- OUTSIDE RECORDS SUMMARY | 2022-03-25 13:27 | XMS_ITS | Encounter Summary ---
:1940 Author Organization [facility] Address [address] [place] [address] Care Team Providers Name Role Phone Unavailable Primary Care Provider Unavailable Encounter Details Date Type Department Care Team Description 06/02/2005 PN Conversion Only [place] [address] [address] [place] [address] Social History Tobacco Use Types Packs/Day Years Used Date Smoking Tobacco: Never Assessed Sex Assigned at Date Recorded Not on file documented as of this encounter Plan of Treatment Not on filedocumented as of this encounter Visit Diagnoses Not on filedocumented in this encounter
--- OUTSIDE RECORDS SUMMARY | 2022-03-25 13:27 | XMS_ITS | Encounter Summary ---
:1940 Author Organization [facility] Address [address] [place] [address] Care Team Providers Name Role Phone Unavailable Primary Care Provider Unavailable Encounter Details Date Type Department Care Team Description 06/03/2005 Nursing Visit [place] [facility] Jose Antonio Carolina, JOYCE Medicine [address] [facility] [address] [place], [place] [address] [place] [address] [phone] Social History Tobacco Use Types Packs/Day Years Used Date Smoking Tobacco: Never Assessed Sex Assigned at Date Recorded Not on file documented as of this encounter Last Filed Vital Signs Vital Sign Reading Time Taken Comments Blood Pressure 140/80 06/03/2005 11:11 AM SENIOR LINUX SYSTEMS ENGINEER Pulse 64 06/03/2005 11:09 AM SENIOR LINUX SYSTEMS ENGINEER C: Radia l Regular Temperature - - Respiratory Rate - - Oxygen Saturation - - Inhaled Oxygen Concentration - - Weight - - Height - - Body Mass Index - - documented in this encounter Plan of Treatment Not on filedocumented as of this encounter Visit Diagnoses Not on filedocumented in this encounter
--- OUTSIDE RECORDS SUMMARY | 2022-03-25 13:27 | XMS_ITS | Encounter Summary ---
:1940 Author Organization [facility] Address [address] [place] [address] Care Team Providers Name Role Phone Unavailable Primary Care Provider Unavailable Reason for Visit Reason Comments Other Encounter Details Date Type Department Care Team Description 10/31/2004 Telephone [place] [facility] Jose Antonio Rodgers MBBS Other Medicine [address] [address] [place] [address] [phone] Social History Tobacco Use Types Packs/Day Years Used Date Smoking Tobacco: Never Assessed Sex Assigned at Date Recorded Not on file documented as of this encounter Progress Notes [employer], Message - 10/31/2004 12:33 PM CDT Phone Note filed by [employer] at 08/25/101858 Author: [employer] Service: (none) Author Type: (none) Filed: 08/25/101858 Note Time: 10/31/041232 Status: Signed Thread Milling Machine Set Up Operator: Message [employer] [place]! please see on-line vital sign flowsheet for today's blood pressure readings. Created on 31Oct2004 12:33pm by KAREN DUNN Acknowledged by JOSE ANTONIO RODGERS on 3:15pm ER RUNNER documented in this encounter Plan of Treatment Not on filedocumented as of this encounter Visit Diagnoses Not on filedocumented in this encounter
--- OUTSIDE RECORDS SUMMARY | 2022-03-25 13:27 | XMS_ITS | Encounter Summary ---
:1940 Author Organization [facility] Address [address] [place] [address] Care Team Providers Name Role Phone Unavailable Primary Care Provider Unavailable Encounter Details Date Type Department Care Team Description 04/03/2005 Nursing Visit [place] [facility] Kindra Abdi MD [address] [place] [address] [phone] Social History Tobacco Use Types Packs/Day Years Used Date Smoking Tobacco: Never Assessed Sex Assigned at Date Recorded Not on file documented as of this encounter Last Filed Vital Signs Vital Sign Reading Time Taken Comments Blood Pressure 126/78 04/03/2005 11:23 AM MULTIFOCAL LENS ASSEMBLER Pulse 60 04/03/2005 11:20 AM MULTIFOCAL LENS ASSEMBLER C: Radia l Regular Temperature - - Respiratory Rate - - Oxygen Saturation - - Inhaled Oxygen Concentration - - Weight - - Height - - Body Mass Index - - documented in this encounter Plan of Treatment Not on filedocumented as of this encounter Visit Diagnoses Not on filedocumented in this encounter
--- OUTSIDE RECORDS SUMMARY | 2022-03-25 13:27 | XMS_ITS | Encounter Summary ---
:1940 Author Organization [facility] Address [address] [place] [address] Care Team Providers Name Role Phone Unavailable Primary Care Provider Unavailable Encounter Details Date Type Department Care Team Description 01/28/2005 Nursing Visit [place] [facility] Yazan Garay MD [facility] [address] [facility] [address] [place] [address] [place] [address] [phone] Social History Tobacco Use Types Packs/Day Years [...]
--- OUTSIDE RECORDS SUMMARY | 2022-03-25 13:28 | XMS_ITS | Encounter Summary ---
:1940 Author Organization [facility] Address [address] [place] [address] Care Team Providers Name Role Phone Unavailable Primary Care Provider Unavailable Reason for Visit Reason Comments Other Encounter Details Date Type Department Care Team Description 03/26/2004 Telephone [place] [facility] Jose Antonio Rodgers MBBS Other Medicine [address] [address] [place], [place] [address] [phone] Social History Tobacco Use Types Packs/Day Years Used Date Smoking Tobacco: Never Assessed Sex Assigned at Date Recorded Not on file documented as of this encounter Progress Notes [place], Message - 03/26/2004 1:22 PM CST Phone Note filed by [employer] at 08/25/10 334 Author: [employer] Service: (none) Author Type: (none) Filed: 08/25/101512 Note Time: 03/26/04 1322 Status: Signed 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
--- OUTSIDE RECORDS SUMMARY | 2022-03-25 13:28 | XMS_ITS | Encounter Summary ---
:1940 Author Organization [facility] Address [address] [place] [address] Care Team Providers Name Role Phone Unavailable Primary Care Provider Unavailable Reason for Visit Reason Comments Other Encounter Details Date Type Department Care Team Description 06/27/2004 Telephone [place] [facility] Jose Antonio Rodgers MBBS Other Medicine [address] [address] [place], [place] [address] [phone] Social History Tobacco Use Types Packs/Day Years Used Date Smoking Tobacco: Never Assessed Sex Assigned at Date Recorded Not on file documented as of this encounter Progress Notes [employer] Message - 06/27/2004 12:27 PM CST Phone Note filed by [employer] at 08/25/101647 Author: [employer] Service: (none) Author Type: (none) Filed: 08/25/101647 Note Time: 06/27/04 1227 Status: Signed Setup Technician: [employer] blood pressure 138/90/70 right arm at 1145.radial [...]
--- OUTSIDE RECORDS SUMMARY | 2022-03-25 13:28 | XMS_ITS | Encounter Summary ---
:1940 Author Organization [facility] Address [address] [place] [address] Care Team Providers Name Role Phone Unavailable Primary Care Provider Unavailable Reason for Visit Reason Comments Other Encounter Details Date Type Department Care Team Description 12/28/2003 Telephone [place] [facility] Jose Antonio Rodgers MBBS Other Medicine [address] [address] [place], [place] [address] [phone] Social History Tobacco Use Types Packs/Day Years Used Date Smoking Tobacco: Never Assessed Sex Assigned at Date Recorded Not on file documented as of this encounter Progress Notes [place], Message - 12/28/2003 2:03 PM CDT Phone Note filed by [employer] at 08/25/10 4873 Author: [employer] Service: (none) Author Type: (none) Filed: 08/25/10 9144 Note Time: 12/28/03 1403 Status: Signed Body Corporate Manager: [facility] [place] blood pressure 132/86 right arm at 1308.radial [...]
--- OUTSIDE RECORDS SUMMARY | 2022-03-25 13:28 | XMS_ITS | Encounter Summary ---
:1940 Author Organization [facility] Address [address] [place] [address] Care Team Providers Name Role Phone Unavailable Primary Care Provider Unavailable Encounter Details Date Type Department Care Team Description 10/26/2003 PN Conversion Only [facility] [address] [place] [address] Social History Tobacco Use Types Packs/Day Years Used Date Smoking Tobacco: Never Assessed Sex Assigned at Date Recorded Not on file documented as of this encounter Progress Notes Phone Note, Clinician - 10/26/2003 12:01 AM CDT Phone Note filed by Clinician Phone Note at 08/26/101421 Author: Clinician Phone Note Service: (none) Author Type: Resource Filed: 08/26/101421 Note Time: 10/26/03 0001 Status: Signed Swimming Instructor: Clinician Phone Note (Resource) TO: VIKTORIYA RODGERS FROM: KAREN HELTON [phone] 10/26/03 * PROVIDER MESSAGE: WINNIEI *NO * 03:31PM * INPUT NECESSARY * MESSAGE: blood pressure 130/66 right * HOME PHONE:[phone] * arm at 1328.radial pulse 72 and * CONTACT PHONE:[phone] * regular. bp 124/72 left arm at 1331.pt rested 5 minutes b/4 bp readings obtained.large cuff applied to obtain bp readings. SUBJECTIVE: ALLERGIES/SENSITIVITIES... 03/23/04 CURRENT MEDICATIONS... 07/31/03 PERTINENT PAST HISTORY... 07/31/03 WEIGHT: ASSESSMENT: fyi-blood pressure readings PLAN: DISPOSITION: NO DISPOSITION GIVEN CALL BY KAREN HELTON 10/26/2003 03:27PM [id number] ADDENDUM: Phone Note, Clinician - 10/23/2003 12:01 AM CDT Phone Note filed by Clinician Phone Note at 08/26/10 8620 Author: Clinician Phone Note Service: (none) Author Type: Resource Filed: 08/26/10 1420 Note Time: 10/23/03 0001 Status: Signed Swimming Instructor: Clinician Phone Note (Resource) TO: VIKTORIYA RODGERS FROM: VAUGHN FISHER [phone] 10/23/03 * PROVIDER MESSAGE: ROUTINE * 08:25AM * *WITHIN 4 HOURS * MESSAGE: Pt calling because he would * HOME PHONE:[phone] * like more Viagra 100mg. This time * CONTACT PHONE:[phone] * he would like the script good for a longer time. He uses our pharmacy. Thank You! SUBJECTIVE: ALLERGIES/SENSITIVITIES... 07/31/03 CURRENT MEDICATIONS... 07/31/03 PERTINENT PAST HISTORY... 07/31/03 WEIGHT: ASSESSMENT: Pt calling PLAN: DISPOSITION: NO DISPOSITION GIVEN CALL BY VAUGHN FISHER 10/23/2003 08:20AM [phone] ADDENDUM: <> 10/23/2003 01:14PM by CONSTANTINO BOONE RN: Per Dr Garay, Please call Viagra 100mg #8 with 3 refills. Rx called to [facility] pharmacy. Pt was notified. Phone Note, Clinician - 09/28/2003 12:01 AM CDT Phone Note filed by Clinician Phone Note at 08/26/10 1408 Author: Clinician Phone Note Service: (none) Author Type: Resource Filed: 08/26/10 1408 Note Time: 09/28/03 0001 Status: Signed Swimming Instructor: Clinician Phone Note (Resource) TO: VIKTORIYA RODGERS FROM: KAREN HELTON [phone] 09/28/03 * PROVIDER MESSAGE: FYI *NO * 02:32PM * INPUT NECESSARY * MESSAGE: blood pressure 128/76 right * HOME PHONE:[phone] * arm at 1338.radial pulse 60 and * CONTACT PHONE:[phone] * regular. bp 126/68 left arm at 1340.pt rested 5 minutes b/4 bp readings obtained.large bp cuff applied to obtain bp readings.kjs SUBJECTIVE: ALLERGIES/SENSITIVITIES... 07/31/03 CURRENT MEDICATIONS... 07/31/03 PERTINENT PAST HISTORY... 07/31/03 WEIGHT: ASSESSMENT: blood pressure readings PLAN: DISPOSITION: NO DISPOSITION GIVEN CALL BY KAREN HELTON 09/28/2003 02:28PM [id number] ADDENDUM: RN TO FACTORY CLERK documented in this encounter Plan of Treatment Not on filedocumented as of this encounter Visit Diagnoses Not on filedocumented in this encounter
--- OUTSIDE RECORDS SUMMARY | 2022-03-25 13:28 | XMS_ITS | Encounter Summary ---
:1940 Author Organization [facility] Address [address] [place] [address] Care Team Providers Name Role Phone Unavailable Primary Care Provider Unavailable Encounter Details Date Type Department Care Team Description 05/17/2003 PN Conversion Only [place] [facility] Jose Antonio Carolina, JOYCE [address] [facility] [address] [place] [address] [place] [address] (Wo rk) Social History Tobacco Use Types Packs/Day Years Used Date Smoking Tobacco: Never Assessed Sex Assigned at Date Recorded Not on file documented as of this encounter Plan of Treatment Not on filedocumented as of this encounter Procedures Procedure Name Priority Date/Time Associated Diagnosis Comme nts GLUCOSE Routine 05/17/2003 1:25 PM Results f or this CITY PLANNING TEACHER procedure are i n the results section. LIPID PANEL AND Routine 05/17/2003 1:25 PM Result s for this DIRECT LDL(IF CITY PLANNING TEACHER procedure are in NEEDED) the results section. COMPLETE BLOOD Routine 05/17/2003 1:25 PM Results for this COUNT-W/DIFF CITY PLANNING TEACHER procedure are i n the results section. PROSTATIC SPECIFIC Routine 05/17/2003 1:25 PM Res ults for this ANTIGEN(SCREEN) CITY PLANNING TEACHER procedure ar e in the results section. documented in this encounter Results (ABNORMAL) Complete Blood Count-W/Diff (05/17/2003 1:25 PM CITY PLANNING TEACHER) [facility] gist Method Time Signature Platelet Count 287 [...] - HP CONVERSION Hemoglobin Conc 36.5 gm/dL [place] RDW 12.5 11.0 - HP CONVERSION 15.0 % Specimen (Source) Anatomical Collection Method Collection Time Re ceived Time Location / / Volume Laterality 05/17/2003 1:25 PM CITY PLANNING TEACHER Jose Antonio [place] [facility] Performing Organization Address City/State/ZIP Code Phon e Number HP CONVERSION Glucose (05/17/2003 1:25 PM CITY PLANNING TEACHER) P athologist Signature Length Of Fast 18.0 Hours HP CONVERSION Lab Glucose 95 60 - 109 HP CONVERSION mg/dL Specimen (Source) Anatomical Collection Method Collection Time Re ceived Time Location / / Volume Laterality 05/17/2003 1:25 PM CITY PLANNING TEACHER Jose Antonio Carolina [facility] Performing Organization Address City/State/ZIP Code Phon e Number HP CONVERSION (ABNORMAL) Lipid Panel and Direct LDL(If Needed) (05/17/2003 1:25 PM CITY PLANNING TEACHER) Analysis Performed At Patho logist Time Signature [...] / / Volume Laterality 05/17/2003 1:25 PM CITY PLANNING TEACHER Jose Antonio [facility] Performing Organization Address City/State/ZIP Code Phon e Number HP CONVERSION Prostatic Specific Antigen (Screen) (05/17/2003 1:25 PM CITY PLANNING TEACHER) P athologist Signature Prostate 1.1 0.0 - 4.0 HP CONVERSION Specific ng/mL Antigen Specimen (Source) Anatomical Collection Method Collection Time Re ceived Time Location / / Volume Laterality 05/17/2003 1:25 PM CITY PLANNING TEACHER Jose Antonio [facility] Performing Organization Address City/State/ZIP Code Phon e Number HP CONVERSION documented in this encounter Visit Diagnoses Not on filedocumented in this encounter
--- OUTSIDE RECORDS SUMMARY | 2022-03-25 13:28 | XMS_ITS | Encounter Summary ---
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
--- OUTSIDE RECORDS SUMMARY | 2022-03-25 13:28 | XMS_ITS | Encounter Summary ---
:1940 Author Organization [facility] Address [address] [place] [address] Care Team Providers Name Role Phone Unavailable Primary Care Provider Unavailable Encounter Details Date Type Department Care Team Description 08/29/2004 Nursing Visit [place] [facility] Juan Antonio, Caleb martínez MD Medicine [address] [address] [facility] [address] [place] [address] [place], [place] [phone] [address] (Wo rk) Social History Tobacco Use Types [...]
--- OUTSIDE RECORDS SUMMARY | 2022-03-25 13:28 | XMS_ITS | Encounter Summary ---
:1940 Author Organization [facility] Address [address] [place] [address] Care Team Providers Name Role Phone Unavailable Primary Care Provider Unavailable Encounter Details Date Type Department Care Team Description 04/25/2004 Office Visit [facility] [employer] [address] [place] [address] Social History Tobacco Use Types Packs/Day Years Used Date Smoking Tobacco: Never Assessed Sex Assigned at Date Recorded Not on file documented as of this encounter Plan of Treatment Not on filedocumented as of this encounter Visit Diagnoses Not on filedocumented in this encounter
--- OUTSIDE RECORDS SUMMARY | 2022-03-25 13:28 | XMS_ITS | Encounter Summary ---
:1940 Author Organization [facility] Address [address] [place] [address] Care Team Providers Name Role Phone Unavailable Primary Care Provider Unavailable Reason for Visit Reason Comments Other Encounter Details Date Type Department Care Team Description 11/27/2003 Telephone [place] [facility] Jose Antonio Rodgers MBBS Other Medicine [address] [place] [address] [place], [place] [address] [phone] Social History Tobacco Use Types Packs/Day Years Used Date Smoking Tobacco: Never Assessed Sex Assigned at Date Recorded Not on file documented as of this encounter Progress Notes [place], Message - 11/27/2003 4:17 PM CDT Phone Note filed by [employer] at 08/25/10 1325 Author: [employer] Service: (none) Author Type: (none) Filed: 08/25/10 1325 Note Time: 11/27/03 1617 Status: Signed Chart Calculator: [facility] [employer] App blood pressure 110/66 right arm at 1308.radial [...]
--- OUTSIDE RECORDS SUMMARY | 2022-03-25 13:28 | XMS_ITS | Encounter Summary ---
:1940 Author Organization [facility] Address [address] [place] [address] Care Team Providers Name Role Phone Unavailable Primary Care Provider Unavailable Encounter Details Date Type Department Care Team Description 08/29/2003 PN Conversion Only [place] [facility] [address] [address] [place] [address] Social History Tobacco Use Types Packs/Day Years Used Date Smoking Tobacco: Never Assessed Sex Assigned at Date Recorded Not on file documented as of this encounter Plan of Treatment Not on filedocumented as of this encounter Visit Diagnoses Not on filedocumented in this encounter
--- OUTSIDE RECORDS SUMMARY | 2022-03-25 13:28 | XMS_ITS | Encounter Summary ---
:1940 Author Organization [facility] Address [address] [place] [address] Care Team Providers Name Role Phone Unavailable Primary Care Provider Unavailable Encounter Details Date Type Department Care Team Description 09/26/2004 Office Visit [place] [facility] Jose Antonio Rodgers MBBS Medicine [address] [place] [address] [phone] Social History Tobacco Use Types Packs/Day Years [...] 0451 Note Time: 09/26/04 0001 Status: Signed Insurance Job Titles: Jose Antonio Rodgers MD (Physician) NAME: MO WRIGHT MR: [id number] ACCT: VISIT: [id number] DICTATING CLINICIAN: JOSE ANTONIO RODGERS MD JOB: [id number] CLINIC PROGRESS NOTE DATE OF VISIT: 09/26/2004 [...] the ? that he gets q. monthly. MOIRA:[id number] C: 10/09/04 10:35 DOCUMENT: [id number] documented in this encounter Plan of Treatment Not on filedocumented as of this encounter Visit Diagnoses Not on filedocumented in this encounter
--- OUTSIDE RECORDS SUMMARY | 2022-03-25 13:28 | XMS_ITS | Encounter Summary ---
:1940 Author Organization [facility] Address [address] [place] [address] Care Team Providers Name Role Phone Unavailable Primary Care Provider Unavailable Encounter Details Date Type Department Care Team Description 07/31/2003 PN Conversion Only [facility] [address] [employer] [place] [address] Social History Tobacco Use Types Packs/Day Years Used Date Smoking Tobacco: Never Assessed Sex Assigned at Date Recorded Not on file documented as of this encounter Progress Notes Phone Note, Clinician - 07/31/2003 12:01 AM CST Phone Note filed by Clinician Phone Note at 08/26/101337 Author: Clinician Phone Note Service: (none) Author Type: Resource Filed: 08/26/101337 Note Time: 07/31/03 0001 Status: Signed Corrosion Control Specialist: Clinician Phone Note (Resource) TO: JOSE ANTONIO CAROLINA FROM: KAREN HELTON [phone] 07/31/03 * PROVIDER MESSAGE: FYI *NO * 02:08PM * INPUT NECESSARY * MESSAGE: blood pressure 106/62 right * HOME PHONE:[phone] * arm at 1:11pm. bp 110/70 left arm * CONTACT PHONE:[phone] * at 1:13pm.radial pulse was 64 and regular.pt rested 5 minutes b/4 readings obtained. SUBJECTIVE: ALLERGIES/SENSITIVITIES... 07/31/03 CURRENT MEDICATIONS... 07/31/03 PERTINENT PAST HISTORY... 07/31/03 WEIGHT: ASSESSMENT: bp readings 07/31/2003 PLAN: DISPOSITION: NO DISPOSITION GIVEN CALL BY KAREN HELTON 07/31/2003 02:04PM [id number] ADDENDUM: <> 08/02/2003 02:24PM by CONSTANTINO FRANZ RN: PEr DR. carolina, above noted. Phone Note, Clinician - 07/20/2003 12:01 AM CST Phone Note filed by Clinician Phone Note at 08/26/10 9979 Author: Clinician Phone Note Service: (none) Author Type: Resource Filed: 08/26/10 2579 Note Time: 07/20/03 0001 Status: Signed Corrosion Control Specialist: Clinician Phone Note (Resource) TO: JOSE ANTONIO CAROLINA FROM: DEVANG DUKES RN [phone] * PROVIDER MESSAGE: ROUTINE * 07/20/03 12:28PM * *WITHIN 4 HOURS * MESSAGE: Pt calling and he has 2 * HOME PHONE:[phone] * concerns: 1) He had a Colonoscopy * CONTACT PHONE:[phone] * several week s ago at [facility] * PHARMACY: [phone] Pk * Hosp and would like to get the * [facility] * results, 2) He went to get [...] CALL BY DEVANG DUKES RN 07/20/2003 12:25PM [phone] ADDENDUM: <> 07/20/2003 01:51PM by CONSTANTINO BOONE [...] signed by Nadira Abdi MD at 07/23/03 9821 Author: Clinician Phone Note Service: (none) Author Type: Resource Filed: 07/31/03 0000 Note Time: 07/03/03 0001 Status: Signed Corrosion Control Specialist: Clinician Phone Note (Resource) - TREATING PROVIDER: NADIRA JENN * HOME PHONE:[phone] * SUBJECTIVE: ALLERGIES/SENSITIVITIES... CURRENT MEDICATIONS... PERTINENT PAST HISTORY... ASSESSMENT: Rx refill DISPOSITION: NO DISPOSITION [place]IVEN [place] [facility] [place]... Per for ; ok for Viagra 100mg tablets #6 x2 refills. This was faxed to [facility] at [phone] by Lacy Pierson CALL BY LEAH OROZCO 07/03/2003 11:41AM [phone] ADDENDUM: Phone Note, Clinician - 06/13/2003 12:01 AM CST Phone Note filed by Clinician Phone Note at 08/26/10 2751 Author: Clinician Phone Note Service: (none) Author Type: Resource Filed: 08/26/101312 Note Time: 06/13/03 0001 Status: Signed Corrosion Control Specialist: Clinician Phone Note (Resource) TO: JOSE ANTONIO CAROLINA FROM: VAUGHN FISHER [phone] 06/13/03 * PROVIDER MESSAGE: ROUTINE * 03:47PM * *WITHIN 4 HOURS * MESSAGE: Pt calling because he would * HOME PHONE:[phone] * like a refill of Norvasc 2.5mg. He * CONTACT PHONE:[phone] * uses [facility] and their number is [phone]. Thank You! SUBJECTIVE: ALLERGIES/SENSITIVITIES... CURRENT MEDICATIONS... PERTINENT PAST HISTORY... WEIGHT: ASSESSMENT: Refill PLAN: DISPOSITION: NO DISPOSITION GIVEN CALL BY VAUGHN FISHER 06/13/2003 03:45PM [phone] ADDENDUM: <> 06/14/2003 10:12AM by CONSTANTINO BOONE RN: Per Dr Romano for [facility]ue[facility] to fill Norvasc 2.5mg 1 po QD #30 with 3 refills. Rx called to above pharmacy. I left message for pt. Phone Note, Clinician - 05/25/2003 12:01 AM CST Phone Note filed by Clinician Phone Note at 08/26/10 6336 Author: Clinician Phone Note Service: (none) Author Type: Resource Filed: 08/26/101302 Note Time: 05/25/03 0001 Status: Signed Corrosion Control Specialist: Clinician Phone Note (Resource) TO: JOSE ANTONIO CAROLINA FROM: OLIVERIO LENTZ RN [phone] * PROVIDER MESSAGE: ROUTINE * 05/25/03 08:35AM * *WITHIN 4 HOURS * MESSAGE: Mo is calling for his * HOME PHONE:[phone] * lab results from yesterday 05/24. * CONTACT PHONE:[phone] * SUBJECTIVE: * detailed message is ok * ALLERGIES/SENSITIVITIES... CURRENT MEDICATIONS... PERTINENT PAST HISTORY... WEIGHT: ASSESSMENT: Lab results PLAN: DISPOSITION: NO DISPOSITION GIVEN CALL BY OLIVERIO LENTZ RN 05/25/2003 08:34AM [phone] ADDENDUM: <> 05/25/2003 09:46AM by SARAH VALENZUELA: Per Lorena Carolina: message left in detail about lab work. Jose Antonio Carolina MBBS - 05/23/2003 12:01 AM CST Progress Notes signed by JOYCE Stover at 04/24/04 2903 Author: Jose Antonio Carolina MD Service: (none) Author Type: Physician Filed: 08/28/10 1801 Note Time: 05/23/03 0001 Status: Signed Corrosion Control Specialist: Jose Antonio Carolina MD (Physician) NAME: MO DALEY MR: [id number] ACCT: [id number] VISIT: [id number] DICTATING CLINICIAN: JOSE ANTONIO CAROLINA MD JOB: [id number] CLINIC PROGRESS NOTE DATE OF VISIT: 05/23/2003 [...] hematocrit, hemoglobin, we will discuss with the expediter, to rule out any possibility of hemochromatosis. PLAN: See assessment. TT: CT: MOIRA:[id number] C: 05/24/03 16:25 DOCUMENT: [id number] OR BUDGET ANALYST Phone Note, Clinician - 05/21/2003 12:01 AM CST Phone Note signed by JOYCE Stover at 04/22/04 0954 Author: Clinician Phone Note Service: (none) Author Type: Resource Filed: 07/31/03 0000 Note Time: 05/21/03 0001 Status: Signed Corrosion Control Specialist: Clinician Phone Note (Resource) - TREATING PROVIDER: JOSE ANTONIO CAROLINA SUBJECTIVE: * HOME PHONE:[phone] * ALLERGIES/SENSITIVITIES... CURRENT MEDICATIONS... PERTINENT PAST HISTORY... ASSESSMENT: lab letter DISPOSITION: NO [facility]ITION [facility]... Per Dr. carolina, please make an appointment to discuss abnormal blood work. CALL BY CONSTANTINO FRANZ RN 05/21/2003 02:30PM [phone] ADDENDUM: documented in this encounter Plan of Treatment Not on filedocumented as of this encounter Visit Diagnoses Not on filedocumented in this encounter
--- OUTSIDE RECORDS SUMMARY | 2022-03-25 13:28 | XMS_ITS | Encounter Summary ---
:1940 Author Organization [facility] Address [address] [place] [address] Care Team Providers Name Role Phone Unavailable Primary Care Provider Unavailable Encounter Details Date Type Department Care Team Description 04/23/2004 Nursing Visit [place] [facility] Jose Antonio Carolina, JORDANABS Medicine [address] [address] [place] [address] [phone] Social History Tobacco Use Types Packs/Day Years Used Date Smoking Tobacco: Never Assessed Sex Assigned at Date Recorded Not on file documented as of this encounter Plan of Treatment Not on filedocumented as of this encounter Visit Diagnoses Not on filedocumented in this encounter
--- OUTSIDE RECORDS SUMMARY | 2022-03-25 13:28 | XMS_ITS | Encounter Summary ---
:1940 Author Organization [facility] Address [address] [place] [address] Care Team Providers Name Role Phone Unavailable Primary Care Provider Unavailable Encounter Details Date Type Department Care Team Description 11/27/2003 Nursing Visit [place] [facility] Jose Antonio Carolina, JORDANABS Medicine [address] [address] [place] [address] [phone] Social History Tobacco Use Types Packs/Day Years Used Date Smoking Tobacco: Never Assessed Sex Assigned at Date Recorded Not on file documented as of this encounter Plan of Treatment Not on filedocumented as of this encounter Visit Diagnoses Not on filedocumented in this encounter
--- OUTSIDE RECORDS SUMMARY | 2022-03-25 13:28 | XMS_ITS | Encounter Summary ---
:1940 Author Organization [facility] Address [address] [place] [address] Care Team Providers Name Role Phone Unavailable Primary Care Provider Unavailable Reason for Visit Reason Comments Other Encounter Details Date Type Department Care Team Description 05/28/2004 Telephone [place] [facility] Jose Antonio Rodgers MBBS Other Medicine [address] [address] [place], [place] [address] [phone] Social History Tobacco Use Types Packs/Day Years Used Date Smoking Tobacco: Never Assessed Sex Assigned at Date Recorded Not on file documented as of this encounter Progress Notes [facility] - 05/28/2004 12:33 PM CST Phone Note filed by TRA at 08/25/10 1611 Author: TRA Service: (none) Author Type: (none) Filed: 08/25/10 1611 Note Time: 05/28/04 1233 Status: Signed Receivable Executive: Message [facility]! would you renew pt depotestosterone [...]
--- OUTSIDE RECORDS SUMMARY | 2022-03-25 13:28 | XMS_ITS | Encounter Summary ---
:1940 Author Organization [facility] Address [address] [place] [address] Care Team Providers Name Role Phone Unavailable Primary Care Provider Unavailable Encounter Details Date Type Department Care Team Description 03/26/[address] [facility] [place] [address] [facility] [address] [place] [address] [place] [phone] Social History Tobacco Use Types Packs/Day Years Used Date Smoking Tobacco: Never Assessed Sex Assigned at Date Recorded Not on file documented as of this encounter Plan of Treatment Not on filedocumented as of this encounter Visit Diagnoses Not on filedocumented in this encounter
--- OUTSIDE RECORDS SUMMARY | 2022-03-25 13:28 | XMS_ITS | Encounter Summary ---
:1940 Author Organization [facility] Address [address] [place] [address] Care Team Providers Name Role Phone Unavailable Primary Care Provider Unavailable Encounter Details Date Type Department Care Team Description 03/24/2004 PN Conversion Only [place] [address] [place] [address] Social History Tobacco Use Types Packs/Day Years Used Date Smoking Tobacco: Never Assessed Sex Assigned at Date Recorded Not on file documented as of this encounter Plan of Treatment Not on filedocumented as of this encounter Visit Diagnoses Not on filedocumented in this encounter
--- OUTSIDE RECORDS SUMMARY | 2022-03-25 13:28 | XMS_ITS | Encounter Summary ---
:1940 Author Organization [facility] Address [address] [place] [address] Care Team Providers Name Role Phone Unavailable Primary Care Provider Unavailable Encounter Details Date Type Department Care Team Description 11/27/2003 PN Conversion Only [place] [facility] [address] [place] [address] Social History Tobacco Use Types Packs/Day Years Used Date Smoking Tobacco: Never Assessed Sex Assigned at Date Recorded Not on file documented as of this encounter Plan of Treatment Not on filedocumented as of this encounter Visit Diagnoses Not on filedocumented in this encounter
--- OUTSIDE RECORDS SUMMARY | 2022-03-25 13:28 | XMS_ITS | Encounter Summary ---
:1940 Author Organization [facility] Address [address] [place] [address] Care Team Providers Name Role Phone Unavailable Primary Care Provider Unavailable Encounter Details Date Type Department Care Team Description 05/28/2004 Nursing Visit [place] [facility] [facility] Jose Antonio Carolina, JORDANABS Medicine [address] [address] [place] [address] [phone] Social History Tobacco Use Types Packs/Day Years Used Date Smoking Tobacco: Never Assessed Sex Assigned at Date Recorded Not on file documented as of this encounter Plan of Treatment Not on filedocumented as of this encounter Visit Diagnoses Not on filedocumented in this encounter
--- OUTSIDE RECORDS SUMMARY | 2022-03-25 13:28 | XMS_ITS | Encounter Summary ---
:1940 Author Organization [facility] Address [address] [place] [address] Care Team Providers Name Role Phone Unavailable Primary Care Provider Unavailable Encounter Details Date Type Department Care Team Description 02/27/2004 Nursing Visit [place] [facility] Jose Antonio Carolina , JORDANABS Medicine [address] [address] [place] [address] [phone] Social History Tobacco Use Types Packs/Day Years Used Date Smoking Tobacco: Never Assessed Sex Assigned at Date Recorded Not on file documented as of this encounter Plan of Treatment Not on filedocumented as of this encounter Visit Diagnoses Not on filedocumented in this encounter
--- OUTSIDE RECORDS SUMMARY | 2022-03-25 13:28 | XMS_ITS | Encounter Summary ---
:1940 Author Organization [facility] Address [address] [place] [address] Care Team Providers Name Role Phone Unavailable Primary Care Provider Unavailable Encounter Details Date Type Department Care Team Description 06/27/2004 PN Conversion Only EPISCOPALIAN CONVERSION Angel Carolina MBBS [address] [place] [address] (Wo rk) Social History Tobacco Use Types Packs/Day Years Used Date Smoking Tobacco: Never Assessed Sex Assigned at Date Recorded Not on file documented as of this encounter Plan of Treatment Not on filedocumented as of this encounter Procedures Procedure Name Priority Date/Time Associated Diagnosis Comme nts GLUCOSE Routine 06/27/2004 11:56 AM Results for this PSYCHOLOGY FELLOW procedure are i n the results section. LIPID PANEL AND Routine 06/27/2004 11:56 AM Resul ts for this DIRECT LDL(IF PSYCHOLOGY FELLOW procedure are in NEEDED) the results section. COMPLETE BLOOD Routine 06/27/2004 11:56 AM Result s for this COUNT-W/DIFF PSYCHOLOGY FELLOW procedure are i n the results section. PROSTATIC SPECIFIC Routine 06/27/2004 11:56 AM Re sults for this ANTIGEN(SCREEN) PSYCHOLOGY FELLOW procedure ar e in the results section. documented in this encounter Results (ABNORMAL) Complete Blood Count-W/Diff (06/27/2004 11:56 AM PSYCHOLOGY FELLOW) [facility] Method Time Signature White Blood Cell [...] - HP CONVERSION Hemoglobin Conc 36.5 gm/dL [place] RDW 12.8 11.0 - HP CONVERSION 15.0 [...] / / Volume Laterality 06/27/2004 11:56 AM PSYCHOLOGY FELLOW Jose Antonio [facility] Performing Organization Address City/State/ZIP Code Phon e Number HP CONVERSION (ABNORMAL) Glucose (06/27/2004 11:56 AM PSYCHOLOGY FELLOW) P athologist Signature Lab Glucose 104 (H) 60 - 100 HP CONVERSION mg/dL Specimen (Source) Anatomical Collection Method Collection Time Re ceived Time Location / / Volume Laterality 06/27/2004 11:56 AM PSYCHOLOGY FELLOW Jose Antonio [facility] Performing Organization Address City/State/ZIP Code Phon e Number HP CONVERSION (ABNORMAL) Lipid Panel and Direct LDL(If Needed) (06/27/2004 11:56 AM PSYCHOLOGY FELLOW) Patholo gist Method Time Signature Cholesterol/HDL 6.2 [...] / / Volume Laterality 06/27/2004 11:56 AM PSYCHOLOGY FELLOW Jose Antonio [facility] Performing Organization Address City/[facility]/ZIP [facility] Phon e Number HP CONVERSION Prostatic Specific Antigen (Screen) (06/27/2004 11:56 AM PSYCHOLOGY FELLOW) P athologist Signature Prostate 0.9 0.0 - 4.0 HP CONVERSION Specific ng/mL Antigen Specimen (Source) Anatomical Collection Method Collection Time Re ceived Time Location / / Volume Laterality 06/27/2004 11:56 AM PSYCHOLOGY FELLOW Jose Antonio [facility] Performing Organization Address [facility] Phon e Number HP CONVERSION documented in this encounter Visit Diagnoses Not on filedocumented in this encounter
--- OUTSIDE RECORDS SUMMARY | 2022-03-25 13:28 | XMS_ITS | Encounter Summary ---
:1940 Author Organization [facility] Address [address] [place] [address] Care Team Providers Name Role Phone Unavailable Primary Care Provider Unavailable Encounter Details Date Type Department Care Team Description 06/27/2004 Nursing Visit [place] [facility] Jose Antonio Carolina, JOYCE Medicine [address] [facility] [address] [place] [address] [place] [address] [phone] Social History Tobacco Use Types Packs/Day Years Used Date Smoking Tobacco: Never Assessed Sex Assigned at Date Recorded Not on file documented as of this encounter Last Filed Vital Signs Vital Sign Reading Time Taken Comments Blood Pressure 150/80 06/27/2004 10:56 AM AUTOMOBILE MECHANIC SUPERVISOR Pulse 76 06/27/2004 10:56 AM AUTOMOBILE MECHANIC SUPERVISOR Temperature - - Respiratory Rate - - Oxygen Saturation - - Inhaled Oxygen Concentration - - Weight 97 kg (213 lb 13.5 oz) 06/27/2004 10:56 AM C: 97 .00kg AUTOMOBILE MECHANIC SUPERVISOR Height 177 cm (5' 9.69) 06/27/2004 10:56 AM C: 177.00c m AUTOMOBILE MECHANIC SUPERVISOR Body Mass Index 30.96 06/27/2004 10:56 AM AUTOMOBILE MECHANIC SUPERVISOR documented in this encounter Plan of Treatment Not on filedocumented as of this encounter Visit Diagnoses Not on filedocumented in this encounter
--- OUTSIDE RECORDS SUMMARY | 2022-03-25 13:28 | XMS_ITS | Encounter Summary ---
:1940 Author Organization [facility] Address [address] [place] [address] Care Team Providers Name Role Phone Unavailable Primary Care Provider Unavailable Encounter Details Date Type Department Care Team Description 12/28/2003 Nursing Visit [place] [facility] Jose Antonio Carolina, JORDANABS Medicine [address] [address] [place] [address] [phone] Social History Tobacco Use Types Packs/Day Years Used Date Smoking Tobacco: Never Assessed Sex Assigned at Date Recorded Not on file documented as of this encounter Plan of Treatment Not on filedocumented as of this encounter Visit Diagnoses Not on filedocumented in this encounter
--- OUTSIDE RECORDS SUMMARY | 2022-03-25 13:28 | XMS_ITS | Encounter Summary ---
:1940 Author Organization [facility] Address [address] [place] [address] Care Team Providers Name Role Phone Unavailable Primary Care Provider Unavailable Reason for Visit Reason Comments Other Encounter Details Date Type Department Care Team Description 02/27/2004 Telephone [place] [facility] Jose Antonio Rodgers MBBS Other Medicine [address] [address] [place], [place] [address] [phone] Social History Tobacco Use Types Packs/Day Years Used Date Smoking Tobacco: Never Assessed Sex Assigned at Date Recorded Not on file documented as of this encounter Progress Notes [place], Message - 02/27/2004 9:52 AM CDT Phone Note filed by [employer] at 08/25/10 7395 Author: [employer] Service: (none) Author Type: (none) Filed: 08/25/10 8758 Note Time: 02/27/04951 Status: Signed Intrusion Analyst: [facility] [employer] blood pressure readings 124/80 right arm at [...]
--- OUTSIDE RECORDS SUMMARY | 2022-03-25 13:28 | XMS_ITS | Encounter Summary ---
:1940 Author Organization [facility] Address [address] [place] [address] Care Team Providers Name Role Phone Unavailable Primary Care Provider Unavailable Encounter Details Date Type Department Care Team Description 06/27/2004 Office Visit [place] [facility] Jose Antonio Rodgers MBBS [facility] [address] [place] [address] [phone] Social History Tobacco Use Types Packs/Day Years [...] 0305 Note Time: 06/27/04 0001 Status: Signed Program Coordinator For Residence Life: Jose Antonio Rodgers MD (Physician) NAME: ALEXANDR SOTELO MR: [id number] ACCT: [id number] VISIT: [id number] DICTATING CLINICIAN: JOSE ANTONIO RODGERS MD JOB: [id number] CLINIC PROGRESS NOTE DATE OF VISIT: 06/27/2004 [...] moles, patient was scheduled to see a credentials specialist. Also, there was a growth near his left eye, on the medial side. PLAN: See assessment. MOIRA:[id number] C: 06/28/04 17:59 DOCUMENT: [id number] documented in this encounter Plan of Treatment Not on filedocumented as of this encounter Visit Diagnoses Not on filedocumented in this encounter
--- OUTSIDE RECORDS SUMMARY | 2022-03-25 13:28 | XMS_ITS | Encounter Summary ---
:1940 Author Organization [facility] Address [address] [place] [address] Care Team Providers Name Role Phone Unavailable Primary Care Provider Unavailable Reason for Visit Reason Comments Other Encounter Details Date Type Department Care Team Description 09/26/2004 Telephone [place] [facility] Jose Antonio Rodgers MBBS Other Medicine [address] [address] [place], [place] [address] [phone] Social History Tobacco Use Types Packs/Day Years Used Date Smoking Tobacco: Never Assessed Sex Assigned at Date Recorded Not on file documented as of this encounter Progress Notes [employer], Message - 09/26/2004 1:47 PM CDT Phone Note filed by [employer] at 08/25/101823 Author: [employer] Service: (none) Author Type: (none) Filed: 08/25/101823 Note Time: 09/26/047 Status: Signed Cabinet Finisher: Message [employer] 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 Created on 26Sep2004 1:47pm by KAREN DUNN Acknowledged by JOSE ANTONIO RODGERS on 2:11pm S FRAME FITTER documented in this encounter Plan of Treatment Not on filedocumented as of this encounter Visit Diagnoses Not on filedocumented in this encounter
--- OUTSIDE RECORDS SUMMARY | 2022-03-25 13:28 | XMS_ITS | Encounter Summary ---
:1940 Author Organization [facility] Address [address] [place] [address] Care Team Providers Name Role Phone Unavailable Primary Care Provider Unavailable Encounter Details Date Type Department Care Team Description 08/29/2003 PN Conversion Only [place] [facility] [address] [address] [place] [address] Social History Tobacco Use Types Packs/Day Years Used Date Smoking Tobacco: Never Assessed Sex Assigned at Date Recorded Not on file documented as of this encounter Plan of Treatment Not on filedocumented as of this encounter Visit Diagnoses Not on filedocumented in this encounter
--- OUTSIDE RECORDS SUMMARY | 2022-03-25 13:28 | XMS_ITS | Encounter Summary ---
:1940 Author Organization [facility] Address [address] [place] [address] Care Team Providers Name Role Phone Unavailable Primary Care Provider Unavailable Reason for Visit Reason Comments Other Encounter Details Date Type Department Care Team Description 01/29/2004 Telephone [place] [facility] JoseA ntonio Rodgers MBBS Other Medicine [address] [address] [place], [place] [address] [phone] Social History Tobacco Use Types Packs/Day Years Used Date Smoking Tobacco: Never Assessed Sex Assigned at Date Recorded Not on file documented as of this encounter Progress Notes [place], Message - 01/29/2004 1:45 PM CDT Phone Note filed by [employer] at 08/25/10 1420 Author: [employer] Service: (none) Author Type: (none) Filed: 08/25/10 1420 Note Time: 01/29/04 1345 Status: Signed Department Head [employer]: [facility] [employer] blood pressure 100/64 right arm at 1310.radial [...]
--- OUTSIDE RECORDS SUMMARY | 2022-03-25 13:28 | XMS_ITS | Encounter Summary ---
:1940 Author Organization [facility] Address [address] [place] [address] Care Team Providers Name Role Phone Unavailable Primary Care Provider Unavailable Reason for Visit Reason Comments Other Encounter Details Date Type Department Care Team Description 05/28/2004 Telephone [place] [facility] Jose Antonio Rodgers MBBS Other Medicine [address] [place] [address] [place], [place] [address] [phone] Social History Tobacco Use Types Packs/Day Years Used Date Smoking Tobacco: Never Assessed Sex Assigned at Date Recorded Not on file documented as of this encounter Progress Notes [employer], Message - 05/28/2004 12:28 PM CST Phone Note filed by [employer] at 08/25/10 1611 Author: [employer] Service: (none) Author Type: (none) Filed: 08/25/101610 Note Time: 05/28/04 1228 Status: Signed [employer]: [employer] blood pressure readings 112/70 right arm at [...]
--- OUTSIDE RECORDS SUMMARY | 2022-03-25 13:28 | XMS_ITS | Encounter Summary ---
:1940 Author Organization [facility] Address [address] [place] [address] Care Team Providers Name Role Phone Unavailable Primary Care Provider Unavailable Reason for Visit Reason Comments Other Encounter Details Date Type Department Care Team Description 08/29/2004 Telephone [facility], Message Other [address] [place] [address] Social History Tobacco Use Types Packs/Day Years Used Date Smoking Tobacco: Never Assessed Sex Assigned at Date Recorded Not on file documented as of this encounter Progress Notes Marie Mcgill - 08/29/2004 10:20 AM CDT Phone Note filed by Marie Mcgill RN at 08/25/101753 Author: Marie Mcgill RN Service: (none) Author Type: (none) Filed: 08/25/101753 Note Time: 08/29/04 1020 Status: Signed Furnace Repairer Helper: Yeny Conversion BP today was 152/80 with large cuff sitting down right arm. Created on 29Aug2004 10:20am by MARIE MCGILL On 19Sep2004 9:24am VIKTORIYA RODGERS wrote: pt needs to be seen b/c of high bp Acknowledged by VIKTORIYA RODGERS on 9:24am On 19Sep2004 9:48am LUZMARIA BELLAMY wrote: Left message for patient to call for an appt. Acknowledged by LUZMARIA BELLAMY on 9:48am NDSKEEPER PORTER documented in this encounter Plan of Treatment Not on filedocumented as of this encounter Visit Diagnoses Not on filedocumented in this encounter
--- OUTSIDE RECORDS SUMMARY | 2022-03-25 13:28 | XMS_ITS | Encounter Summary ---
:1940 Author Organization [facility] Address [address] [place] [address] Care Team Providers Name Role Phone Unavailable Primary Care Provider Unavailable Encounter Details Date Type Department Care Team Description 05/17/2003 PN Conversion Only [place] [facility] Marques Rodgers MBBS Medicine [address] [place] [address] [id number] (Wo rk) Social History Tobacco Use Types [...] 1754 Note Time: 05/17/03 0001 Status: Signed Vascular Manager: Jose Antonio Rodgers MD (Physician) NAME: MO SOTELO MR: [id number] ACCT: [id number] VISIT: [id number] DICTATING CLINICIAN: JOSE ANTONIO RODGERS MD JOB: [id number] CLINIC PROGRESS NOTE DATE OF VISIT: 05/17/2003 [...] 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 Patient lives alone and is a [...] because of the family history. TT: CT: MOIRA:[id number] C: 05/17/03 23:01 DOCUMENT: [id number] R BOAT CAPTAIN Phone Note, Clinician - 05/15/2003 12:01 AM CST Phone Note signed by JOYCE Stover at 04/21/04 1408 Author: Clinician Phone Note Service: (none) Author Type: Resource Filed: 05/17/03 0000 Note Time: 05/15/03 0001 Status: Signed Vascular Manager: Clinician Phone Note (Resource) - TREATING PROVIDER: JOSE ANTONIO RODGERS SUBJECTIVE: * HOME PHONE:[phone] * ALLERGIES/SENSITIVITIES... CURRENT MEDICATIONS... PERTINENT PAST HISTORY... ASSESSMENT: Rx refill DISPOSITION: NO [facility]... Per ; ok for Norvasc 2.5mg tablets #30 x1 refill. This was called into [facility] at [phone] by Bere Clemente CALL BY LEAH OROZCO 05/15/2003 01:48PM [phone] ADDENDUM: R BOAT CAPTAIN Phone Note, Clinician - 01/02/2003 12:01 AM CDT Phone Note signed by JOYCE Stover at 03/31/04 0813 Author: Clinician Phone Note Service: (none) Author Type: Resource Filed: 05/17/03 0000 Note Time: 01/02/03 0001 Status: Signed Vascular Manager: Clinician Phone Note (Resource) TO: JOSE ANTONIO RODGERS FROM: CARLOS SELF [id number] 01/02/03 * PROVIDER MESSAGE: ROUTINE * 11:43AM * *WITHIN 4 HOURS * MESSAGE: pt filled his viagra, * HOME PHONE:[phone] * noticed that there were no refills * CONTACT PHONE:[phone] * left. He woul d like a new rx * PHARMACY: [facility] * called in for a year if possible. SUBJECTIVE: ALLERGIES/SENSITIVITIES... NKA 01/02/03 CURRENT MEDICATIONS... NORVASC 2.5MG, VIAGRA 50MG 01/02/03 PERTINENT PAST HISTORY... 01/02/03 WEIGHT: ASSESSMENT: viagra PLAN: DISPOSITION: NO DISPOSITION GIVEN CALL BY CARLOS SELF 01/02/2003 11:41AM [id number] ADDENDUM: <> 01/02/2003 02:59PM by MARYJO MCGILL SPACE TECHNOLOGIST: Per Dr Rodgers:Viagra 100mg q prn 36 with 1 yr of rfs.//Pharm called and pt notified. R BOAT CAPTAIN Phone Note, Clinician - 11/30/2002 12:01 AM CDT Phone Note signed by Sanford Romano MD at 01/08/03 2046 Author: Clinician Phone Note Service: (none) Author Type: Resource Filed: 05/17/03 0000 Note Time: 11/30/02 0001 Status: Signed Vascular Manager: Clinician Phone Note (Resource) - TREATING PROVIDER: SANFORD ROMANO SUBJECTIVE: * HOME PHONE:[phone] * ALLERGIES/SENSITIVITIES... CURRENT MEDICATIONS... PERTINENT PAST HISTORY... ASSESSMENT: Rx refill DISPOSITION: NO DISPOSITION GIVEN PLAN: [facility] COMMENTS... Per for ; ok for Viagra 50mg tablets x2 refills. This was faxed to [facility] at [phone] by Maura Mcmillan CALL BY LEAH OROZCO 11/30/2002 11:50AM ADDENDUM: Jose Antonio Joel MBBS - 10/25/2002 12:01 AM CDT Progress Notes signed by JOYCE Stover at 07/18/03 1135 Author: Jose Antonio Rodgers MD Service: (none) Author Type: Physician Filed: 08/28/10 1432 Note Time: 10/25/02 0001 Status: Signed Vascular Manager: Jose Antonio Rodgers MD (Physician) NAME: MO SOTELO MR: [id number] ACCT: [id number] VISIT: [id number] DICTATING CLINICIAN: JOSE ANTONIO RODGERS MD JOB: [id number] CLINIC PROGRESS NOTE DATE OF VISIT: 10/25/2002 [...] for amoxicillin. PLAN: See assessment. TT: CT: MOIRA:[id number] C: 10/26/02 05:16 DOCUMENT: [id number] R BOAT CAPTAIN Phone Note, Clinician - 10/10/2002 12:01 AM CDT Phone Note filed by Clinician Phone Note at 08/26/10 1125 Author: Clinician Phone Note Service: (none) Author Type: Resource Filed: 08/26/10 1125 Note Time: 10/10/02 0001 Status: Signed Vascular Manager: Clinician Phone Note (Resource) - TREATING PROVIDER: JOSE ANTONIO RODGERS - PHARMACY: [phone] [facility] * HOME PHONE:[phone] * SUBJECTIVE: PATIENT COMPLAINS OF... rx refill ALLERGIES/SENSITIVITIES... CURRENT MEDICATIONS... PERTINENT PAST HISTORY... ASSESSMENT: rx refill DISPOSITION: NON-URGENT PLAN: Verbalizes understanding and agrees with phone care recommendation MISC COMMENTS... Per Dr Rodgers-refill request for Norvasc 2.5 mg, 1 po qd, qty 30, appro bharath x3. Request faxed to [facility] @ [phone] on . CALL BY MARYJO CHILD 10/10/2002 03:03PM ADDENDUM: R BOAT CAPTAIN documented in this encounter Plan of Treatment Not on filedocumented as of this encounter Visit Diagnoses Not on filedocumented in this encounter
--- OUTSIDE RECORDS SUMMARY | 2022-03-25 13:28 | XMS_ITS | Encounter Summary ---
:1940 Author Organization [facility] Address [address] [place] [address] Care Team Providers Name Role Phone Unavailable Primary Care Provider Unavailable Reason for Visit Reason Comments Other Encounter Details Date Type Department Care Team Description 04/23/2004 Telephone [place] [facility] Jose Antonio Rodgers MBBS Other Medicine [address] [address] [place], [place] [address] [phone] Social History Tobacco Use Types Packs/Day Years Used Date Smoking Tobacco: Never Assessed Sex Assigned at Date Recorded Not on file documented as of this encounter Progress Notes [place], Message - 04/23/2004 12:52 PM CST Phone Note filed by Shark Punch at 08/25/10 6808 Author: Shark Punch Service: (none) Author Type: (none) Filed: 08/25/10 1538 Note Time: 04/23/04 1252 Status: Signed Joy Operator Helper: [facility] blood pressure 118/70 right arm at [...]
--- OUTSIDE RECORDS SUMMARY | 2022-03-25 13:28 | XMS_ITS | Encounter Summary ---
:1940 Author Organization [facility] Address [address] [place] [address] Care Team Providers Name Role Phone Unavailable Primary Care Provider Unavailable Encounter Details Date Type Department Care Team Description 07/23/2004 Office [place] [address] [address] [place] [address] [place] [address] [phone] (Wo rk) Social History Tobacco Use Types [...] 0335 Note Time: 07/23/04 0001 Status: Signed Log Chain Worker: Gretta Saravia MD (Physician) NAME: ALEXANDR SOTELO MR: [id number] ACCT: [id number] VISIT: [id number] DICTATING CLINICIAN: GRETTA SARAVIA MD JOB: [id number] CLINIC PROGRESS NOTE DATE OF VISIT: 07/23/2004 SUBJECTIVE: : 1940. Rrhpy-bzi-vlxj-old gentleman new to clinic comes in for [...] stuckon appearing papules especially along the left latter-day. Also on the left nasal bridge near [...] left medial canthus. Irritated seborrheic keratosis, left latter-day, and multiple seborrheic keratoses and solar lentigines. [...] regarding other seborrheic keratoses and solar lentigines. MMB:[id number] C: 07/23/04 16:52 DOCUMENT: [id number] GAGE PROTECTION SALES documented in this encounter Plan of Treatment Not on filedocumented as of this encounter Visit Diagnoses Not on filedocumented in this encounter
--- OUTSIDE RECORDS SUMMARY | 2022-03-25 13:28 | XMS_ITS | Encounter Summary ---
:1940 Author Organization [facility] Address [address] [place] [address] Care Team Providers Name Role Phone Unavailable Primary Care Provider Unavailable Encounter Details Date Type Department Care Team Description 01/29/2004 Nursing Visit [place] [facility] Jose Antonio Carolina , JORDANABS Medicine [address] [address] [place] [address] [phone] Social History Tobacco Use Types Packs/Day Years Used Date Smoking Tobacco: Never Assessed Sex Assigned at Date Recorded Not on file documented as of this encounter Plan of Treatment Not on filedocumented as of this encounter Visit Diagnoses Not on filedocumented in this encounter
--- OUTSIDE RECORDS SUMMARY | 2022-03-25 13:28 | XMS_ITS | Encounter Summary ---
:1940 Author Organization [facility] Address [address] [place] [address] Care Team Providers Name Role Phone Unavailable Primary Care Provider Unavailable Encounter Details Date Type Department Care Team Description 07/25/2004 Nursing Visit [place] [facility] Jose Antonio Carolina, JORDANABS Medicine [address] [address] [place] [address] [phone] Social History Tobacco Use Types Packs/Day Years Used Date Smoking Tobacco: Never Assessed Sex Assigned at Date Recorded Not on file documented as of this encounter Plan of Treatment Not on filedocumented as of this encounter Visit Diagnoses Not on filedocumented in this encounter
--- OUTSIDE RECORDS SUMMARY | 2022-03-25 13:28 | XMS_ITS | Encounter Summary ---
:1940 Author Organization [facility] Address [address] [place] [address] Care Team Providers Name Role Phone Unavailable Primary Care Provider Unavailable Encounter Details Date Type Department Care Team Description 06/27/2003 [facility] [address] Henrique Barrientos MD Endoscopy [address] [place] [id number] [phone] Social History Tobacco Use Types Packs/Day Years Used Date Smoking Tobacco: Never Assessed Sex Assigned at Date Recorded Not on file documented as of this encounter Procedure Notes Henrique Palacios MD - 06/27/2003 12:01 AM CST Procedures signed by Henrique Palacios MD at 06/27/03 6222 Author: Henrique Palacios MD Service: (none) Author Type: Physician Filed: 08/28/10 1840 Note Time: 06/27/03 1510 Status: Signed Broadcast Program Director: Henrique Palacios MD (Physician) Patient Name: Mo [...] and oxygen saturation were monitored continuously. The colonoscope(PW707E-0) was introduced through the anus and advanced [...] or nsaids for two weeks. CPT4 Code(s): 54109, Colonoscopy, flexible, proximal to splenic flexure; with removal of tumor(s), polyp(s), or other lesion(s) by snare technique 77405, Colonoscopy, flexible, proximal to splenic flexure; with ablation of tumor(s), polyp(s), or other lesion(s) not amenable to removal by hot biopsy forceps, bipolar cautery or snare technique 48177, 51, Colonoscopy, flexible, proximal to splenic flexure; with biopsy, single or multiple ICD9 Code(s): Henrique Palacios MD Signed Date: 06/27/2003 3:42:21 PM This document has been electronically signed. Note generated on 06/27/2003 3:08:02 PM CC letter to: ITY COMPLIANCE MANAGER documented in this encounter Plan of Treatment Not on filedocumented as of this encounter Procedures Procedure Name Priority Date/Time Associated Diagnosis Comme nts SURGICAL PATH, JEFF Routine 06/27/2003 4:34 PM Re sults for this [facility] QUALITY COMPLIANCE MANAGER procedure are i n the results section. documented in this encounter Results Pathology Report (06/27/2003 4:34 PM QUALITY COMPLIANCE MANAGER) [facility] gist Method Time Signature Surgical SEE TEXT No normal HP CONVERSION Pathology range Comment: Patient: ASHLEIGH, MO Leo ?S URGICAL PATHOLOGY REPORT Pathology # ??[id number] ?Date Obtained: [id number] ? Date Received: [id number] DIAGNOSIS: A) ??Cecum, biopsies: ?1. Adenomatous polyp (tubular edwin jason), 1 fragment. ?2. Hyperplastic (metaplastic) poly p, 3 fragments. B) ??Colon at 35 cm, biopsy: ?- ??Adenomatous polyp (tubular suhail noma). C) ??Colon at 15 cm, biopsy: ?- ??Hyperplastic (metaplastic) arabella yp. ?Elfego Olson M.D. ?(electronic signature) RPW/RPW/cjc Date of Report: 06/28/03 Pathology # ??[id number] ?Date Obtained: [id number] ? Date Received: [id number] ORGAN/TISSUE SITE: ?Cecum/Colon at 35 cm/Colon at [...] / / Volume Laterality 06/27/2003 4:34 PM QUALITY COMPLIANCE MANAGER Henrique Palacios MD LAB_1 Performing Organization Address City/State/ZIP Code Phon e Number HP CONVERSION documented in this encounter Visit Diagnoses Not on filedocumented in this encounter
--- OUTSIDE RECORDS SUMMARY | 2022-03-25 13:28 | XMS_ITS | Encounter Summary ---
:1940 Author Organization [facility] Address [address] [place] [address] Care Team Providers Name Role Phone Unavailable Primary Care Provider Unavailable Encounter Details Date Type Department Care Team Description 05/24/2003 PN Conversion Only [place] [facility] Jose Antonio Wells, JOYCE [address] [employer] [facility] [address] [place] [address] [place] [address] (Wo rk) Social History Tobacco Use Types Packs/Day Years Used Date Smoking Tobacco: Never Assessed Sex Assigned at Date Recorded Not on file documented as of this encounter Plan of Treatment Not on filedocumented as of this encounter Procedures Procedure Name Priority Date/Time Associated Diagnosis Comme nts COMPLETE BLOOD Routine 05/24/2003 9:51 AM Results for this COUNT-W/DIFF PACKAGING MATERIALS INSPECTOR procedure are i n the results section. documented in this encounter Results (ABNORMAL) Complete Blood Count-W/Diff (05/24/2003 9:51 AM PACKAGING MATERIALS INSPECTOR) [facility] gist Method Time Signature RDW 12.6 11.0 [...] - HP CONVERSION Hemoglobin Conc 36.5 gm/dL [place] Specimen (Source) Anatomical Collection Method Collection Time Re ceived Time Location / / Volume Laterality 05/24/2003 9:51 AM PACKAGING MATERIALS INSPECTOR Jose Antonio COOK LAB_1 Performing Organization Address City/State/ZIP Code Phon e Number HP CONVERSION documented in this encounter Visit Diagnoses Not on filedocumented in this encounter
--- OUTSIDE RECORDS SUMMARY | 2022-03-25 13:29 | XMS_ITS | Encounter Summary ---
:1940 Author Organization [facility] Address [address] [place] [address] Care Team Providers Name Role Phone Unavailable Primary Care Provider Unavailable Encounter Details Date Type Department Care Team Description 05/17/2003 PN Conversion Only [place] [address] [place] [address] Social History Tobacco Use Types Packs/Day Years Used Date Smoking Tobacco: Never Assessed Sex Assigned at Date Recorded Not on file documented as of this encounter Plan of Treatment Not on filedocumented as of this encounter Visit Diagnoses Not on filedocumented in this encounter
--- OUTSIDE RECORDS SUMMARY | 2022-03-25 13:29 | XMS_ITS | Encounter Summary ---
:1940 Author Organization [facility] Address [address] [place] [address] Care Team Providers Name Role Phone Unavailable Primary Care Provider Unavailable Encounter Details Date Type Department Care Team Description 10/31/2002 PN Conversion Only [place] Jose Antonio Rayo MBBS [address] [address] in [place] [facility] [address] [place] [address] [place] [address] (Wo rk) Social History Tobacco [...] Direct LDL(If Needed) (10/31/2002 10:07 AM CDT) [facility] gist Method Time Signature Cholesterol/HDL 4.2 [...]
--- OUTSIDE RECORDS SUMMARY | 2022-03-25 13:29 | XMS_ITS | Encounter Summary ---
:1940 Author Organization [facility] Address [address] [place] [address] Care Team Providers Name Role Phone Unavailable Primary Care Provider Unavailable Encounter Details Date Type Department Care Team Description 09/11/2002 PN Conversion Only [facility] [address] [place] [address] Social History Tobacco Use Types [...] 0000 Note Time: 07/18/02 0001 Status: Signed Pre Fabricator: Clinician Phone Note (Resource) - TREATING PROVIDER: JOSE ANTONIO CAROLINA SUBJECTIVE: * HOME PHONE:[phone] * ALLERGIES/SENSITIVITIES... CURRENT MEDICATIONS... PERTINENT PAST HISTORY... ASSESSMENT: Rx refill DISPOSITION: NO DISPOSITION GIVEN PLAN: [facility] COMMENTS... Per for ; ok for Viagra 50MG Tablet #6 with no additional refills. This was faxed to [facility] at [phone] by Lacy Pierson CALL BY LEAH OROZCO 07/18/2002 12:24PM ADDENDUM: ENT CARE Jose Antonio Carolina MBBS - 07/18/2002 12:01 AM CST Progress Notes signed by JOYCE Stover at 11/23/02 1056 Author: Jose Antonio Carolina MD Service: (none) Author Type: Physician Filed: 08/28/10 1257 Note Time: 07/18/02 0001 Status: Signed Pre Fabricator: Jose Antonio Carolina MD (Physician) NAME: MO DALEY MR: [id number] ACCT: [id number] VISIT: [id number] DICTATING CLINICIAN: JOSE ANTONIO CAROLINA MD JOB: [id number] CLINIC PROGRESS NOTE DATE OF VISIT: 07/18/2002 SUBJECTIVE: : 1940. [id number]. Mo is here for a follow-up on [...] to follow-up within three months. TT: CT: MOIRA:[id number] C: 07/19/02 06:39 DOCUMENT: [id number] Jose Antonio Carolina MBBS - 06/20/2002 12:01 AM CST Progress Notes signed by at 06/25/02 1537 Author: Jose Antonio Carolina MD Service: (none) Author Type: Physician Filed: 08/28/10 1223 Note Time: 06/20/02 0001 Status: Signed Pre Fabricator: Jose Antonio Carolina MD (Physician) IMPRESSION: Hypertension. [...] today. 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 TT: CT: MOIRA:[id number] C: 06/20/02 12:41 DOCUMENT: [id number] ENT CARE Jose Antonio Carolina MBBS - 06/09/2002 12:01 AM CST Progress Notes signed by at 06/25/02 2931 Author: Jose Antonio Carolina MD Service: (none) Author Type: Physician Filed: 08/28/10 1208 Note Time: 06/09/02 0001 Status: Signed Pre Fabricator: Jose Antonio Carolina MD (Physician) IMPRESSION: Borderline [...] his PSA. PLAN: See assessment. TT: CT: MIORA:[id number] C: 06/09/02 14:04 DOCUMENT: [id number] ENT CARE Conversion, [facility] - 03/15/2002 12:01 AM CST Phone Note signed by at 03/15/02 0906 Author: Yeny Samuels Service: (none) Author Type: (none) Filed: 08/28/10 1008 Note Time: 03/15/02 0001 Status: Signed Pre Fabricator: Yeny Samuels IMPRESSION: regarding Viagra refill SUBJECTIVE: ALLERGIES/SENSITIVITIES... * HOME PHONE:[phone] * CURRENT MEDICATIONS... PERTINENT PAST HISTORY... ASSESSMENT: regarding Viagra refill DISPOSITION: NO DISPOSITION GIVEN PLAN: [facility] COMMENTS... Per Dr. Romano please call in Viagra 50mg #6 with 3 refills. Info called to [facility] [phone]. CALL BY KATHY SUTHERLAND LPN 03/15/2002 09:05AM ADDENDUM: ENT CARE Toi Alegria MD - 02/06/2002 12:01 AM CDT Progress Notes signed by at 05/27/02 1851 Author: Toi Alegria MD Service: (none) Author Type: Physician Filed: 08/28/10 0914 Note Time: 02/06/02 0001 Status: Signed Pre Fabricator: Toi Alegria MD (Physician) IMPRESSION: Large inflamed [...] basis. TT: CT: CC: JAILENE ROD MD [facility]:[id number] C: DOCUMENT: [id number] ENT CARE Conversion, [facility] - 02/06/2002 12:01 AM CDT Progress Notes signed by at 07/01/02 0001 Author: Yeny Samuels Service: (none) Author Type: (none) Filed: 08/28/10 0914 Note Time: 02/06/022016 Status: Signed Pre Fabricator: Yeny Samuels IMPRESSION: Sebaceous cyst. SUBJECTIVE: Mo [...] Setup with surgery to remove. TT: CT: [facility]:[id number] C: DOCUMENT: [id number] ENT CARE Conversion, [facility] - 12/21/2001 12:01 AM CDT Progress Notes signed by at 05/27/02 1843 Author: Yeny Conversion Service: (none) Author Type: (none) Filed: 08/28/10 0810 Note Time: 12/21/012016 Status: Signed Pre Fabricator: Yeny Conversion IMPRESSION: Well physical. Slight obesity. [...] 7. Will followup on tests. TT: CT: [facility]:[id number] C: DOCUMENT: [id number] ENT CARE Conversion, [facility] - 06/09/2001 12:01 AM CST Phone Note signed by at 06/09/01 0973 Author: Yeny Samuels Service: (none) Author Type: (none) Filed: 08/28/10 0341 Note Time: 06/09/012016 Status: Signed Pre Fabricator: Yeny Samuels IMPRESSION: lotrisone refill SUBJECTIVE: ALLERGIES/SENSITIVITIES... * HOME PHONE:[phone] * CURRENT MEDICATIONS... * WORK PHONE:[phone] * PERTINENT PAST HISTORY... ASSESSMENT: lotrisone refill DISPOSITION: NO DISPOSITION GIVEN PLAN: [facility] COMMENTS... Called in refill auth per for lotrisone cream 15gm to [facility]. CALL BY FELIPA LORENZ 06/09/2001 09:47AM ADDENDUM: ENT CARE Conversion, [facility] - 09/28/2000 12:01 AM CDT Progress Notes signed by at 07/01/02 0001 Author: Yeny Samuels Service: (none) Author Type: (none) Filed: 08/27/10 2237 Note Time: 09/28/00 0001 Status: Signed Pre Fabricator: Yeny Samuels IMPRESSION: Tick bite to right [...] rashes, the patient should be reseen immediately. LAG:[id number] C: DOCUMENT: [id number] SCHEDULED RESOURCE: INDY GIBSON ENT CARE Conversion, [facility] - 09/14/2000 12:01 AM CDT Progress Notes signed by at 10/12/01 1738 Author: Yeny Samuels Service: (none) Author Type: (none) Filed: 08/27/10 2221 Note Time: 09/14/00 0001 Status: Signed Pre Fabricator: Yeny Samuels IMPRESSION: Obesity. Minor hypertension. Erectile [...] Health maintenance guideline discussed with the patient. [facility]:[id number] C: DOCUMENT: [id number] Henrique Campos MD - 09/12/1999 12:01 AM CDT Progress Notes signed by at 09/23/99 2390 Author: Henrique Cooper MD Service: (none) Author Type: (none) Filed: 08/27/10 1621 Note Time: 09/12/99 0001 Status: Signed Pre Fabricator: Yeny Abril IMPRESSION: For the most part, [...] nerves II through XII are intact. Gait, ffwfkq-yi-saze, dqet-gk-lzat, Romberg, strength and reflexes are normal. ASSESSMENT: [...] that in the future. PLAN: See Assessment. ITZEL:[id number] C: DOCUMENT: [id number] ENT CARE Henrique Cooper MD - 07/15/1999 12:01 AM CST Progress Notes signed by at 07/25/99 1914 Author: Henrique Cooper MD Service: (none) Author Type: (none) Filed: 08/27/10 1525 Note Time: 07/15/99 0001 Status: Signed Pre Fabricator: Yeny Samuels IMPRESSION: Keratoses. SUBJECTIVE: Mr. Daley [...] 20 minutes, in the reasonably near future. DJW:[id number] C: DOCUMENT: [id number] Indy Dodd PA-C - 02/26/1999 12:01 AM CDT Progress Notes signed by at 08/24/00 1151 Author: Indy Gibson PA-C Service: (none) Author Type: Resource Filed: 08/27/10 1310 Note Time: 02/26/99 0001 Status: Signed Pre Fabricator: Indy Gibson PA-C (Resource) IMPRESSION: Bronchitis. Bronchospasm. SUBJECTIVE: N/A OBJECTIVE: N/A ASSESSMENT: Bronchitis. Bronchospasm. PLAN: The patient is put on Zithromax Konstantin to take as directed and albuterol inhaler two puffs every four hours while awake for the next five days. Symptomatic care was discussed. LAG:[id number] C: DOCUMENT: [id number] Henrique Campos MD - 12/13/1998 12:01 AM CDT Progress Notes signed by at 01/02/99 1427 Author: Henrique Cooper MD Service: (none) Author Type: (none) Filed: 08/27/10 1155 Note Time: 12/13/98 0001 Status: Signed Pre Fabricator: [facility] Conversion IMPRESSION: Keratoses. SUBJECTIVE: Please see written note. OBJECTIVE: N/A ASSESSMENT: Keratoses. PLAN: N/A NIGELW:[id number] C: DOCUMENT: [id number] Henrique Campos MD - 08/28/1998 12:01 AM CDT Progress Notes signed by at 09/11/98 1851 Author: Henrique Cooper MD Service: (none) Author Type: (none) Filed: 08/27/10 1008 Note Time: 08/28/98 0001 Status: Signed Pre Fabricator: Yeny Conversion IMPRESSION: Myofascial pain, soft tissue. [...] Sulindac a week after he is better. DJW:[id number] C: DOCUMENT: [id number] Henrique Campos MD - 10/23/1997 12:01 AM CDT Progress Notes signed by at 11/06/97 1907 Author: Henrique Cooper MD Service: (none) Author Type: (none) Filed: 08/27/10 0459 Note Time: 10/23/97 0001 Status: Signed Pre Fabricator: Yeny Samuels IMPRESSION: Negative screening test for [...] CDT Progress Notes signed by at 10/05/97 0598 Author: Henrique Cooper MD Service: (none) Author Type: (none) Filed: 08/27/10 0429 Note Time: 09/20/97 0001 Status: Signed Pre Fabricator: Yeny Conversion IMPRESSION: Testicular failure with some [...] 0304 Note Time: 06/19/97 0001 Status: Signed Pre Fabricator: Yeny Conversion IMPRESSION: Testicular failure with good [...] 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 One-half pack cigarettes a day. He is [...] hearing, cranial nerves II- XII, gait, finger-nose, gnnv-af-cjmq, Romberg. ASSESSMENT: 1. Testicular failure with good [...] of labs by mail. PLAN: N/A. sto Henrique Campos MD - 10/05/1995 12:01 AM CDT Progress Notes signed by at 10/12/951814 Author: Henrique Cooper MD Service: (none) Author Type: (none) Filed: 08/26/101943 Note Time: 10/05/95 0001 Status: Signed Pre Fabricator: [facility] Conversion IMPRESSION: SKIN CYSTS SUBJECTIVE: Mo Daley [...] otherwise. ASSESSMENT: Skin cysts. PLAN: Reassurance. ncss/[id number] Henrique Campos MD - 04/09/1995 12:01 AM CST Progress Notes signed by at 04/13/951812 Author: Henrique Cooper MD Service: (none) Author Type: (none) Filed: 08/26/10 180 Note Time: 04/09/95 0001 Status: Signed Pre Fabricator: Yeny Conversion IMPRESSION: Upper respiratory infection. SUBJECTIVE: [...] a low HDL last time, we will continuous pickling line pickler a cholesterol HDL and notify him of the results of that lab by mail. ncss/jmh ENT CARE Mita Covarrubias MD - 03/11/1995 12:01 AM CST Progress Notes signed by Mita Covarrubias MD at 04/13/95 0084 Author: Mita Covarrubias MD Service: (none) Author Type: Physician Filed: 08/26/10 2944 Note Time: 03/11/95 0001 Status: Signed Pre Fabricator: Mita Covarrubias MD (Physician) IMPRESSION: No dictation required. SUBJECTIVE: N/A OBJECTIVE: N/A ASSESSMENT: N/A PLAN: N/A ncss/kda ENT CARE documented in this encounter Plan of Treatment Not on filedocumented as of this encounter Procedures Procedure Name Priority Date/Time Associated Comments Diagnosis HIV ANTIBODY Routine 06/20/2002 9:26 AM Results f or this PATIENT CARE procedure are i n the results section. LIPID PANEL AND Routine 06/20/2002 9:26 AM Result s for this DIRECT LDL(IF NEEDED) PATIENT CARE proced ure are in the results section. ALT (SGPT) Routine 06/20/2002 9:26 AM Results f or this PATIENT CARE procedure are i n the results section. AST Routine 06/20/2002 9:26 AM Results f or this PATIENT CARE procedure are i n the results section. BILIRUBIN, TOTAL Routine 06/20/2002 9:26 AM Resul ts for this PATIENT CARE procedure are i n the results section. BILI - DIRECT Routine 06/20/2002 9:26 AM Results for this PATIENT CARE procedure are i n the results section. ALKALINE PHOSPHATASE, Routine 06/20/2002 9:26 AM Results for this TOTAL PATIENT CARE procedure are i n the results section. ALBUMIN Routine 06/20/2002 9:26 AM Results f or this PATIENT CARE procedure are i n the results section. [...] 06/19/1997 3:55 PM Results f or this PATIENT CARE procedure are i n the results section. LIPID PANEL AND Routine 06/19/1997 3:55 PM Result s for this DIRECT LDL(IF NEEDED) PATIENT CARE proced ure are in the results section. CREATININE / GFR Routine 06/19/1997 3:55 PM Resul ts for this PATIENT CARE procedure are i n the results section. HEMOGLOBIN, BLOOD Routine 06/19/1997 3:55 PM Resu lts for this PATIENT CARE procedure are i n the results section. [...] this encounter Results Albumin (06/20/2002 9:26 AM PATIENT CARE) athologist Signature Albumin 3.9 3.0 - 5.0 HP CONVERSION g/dL Specimen (Source) Anatomical Collection Method Collection Time Re ceived Time Location / / Volume Laterality 06/20/2002 9:26 AM PATIENT CARE Limal [facility]1 Performing Organization Address City/State/ZIP Code Phon e Number HP CONVERSION Alkaline Phosphatase, Total (06/20/2002 9:26 AM PATIENT CARE) athologist Signature Alk Phos 100 50 - 136 U/L HP CONVERSION Specimen (Source) Anatomical Collection Method Collection Time Re ceived Time Location / / Volume Laterality 06/20/2002 9:26 AM PATIENT CARE Marqueslal [facility] Performing Organization Address City/State/ZIP Code Phon e Number HP CONVERSION ALT (SGPT) (06/20/2002 9:26 AM PATIENT CARE) [facility] gist Method Time Signature Alanine 36 0 - 65 HP CONVERSION Aminotransferase U/L Specimen (Source) Anatomical Collection Method Collection Time Re ceived Time Location / / Volume Laterality 06/20/2002 9:26 AM PATIENT CARE Jalal [facility] Performing Organization Address City/State/ZIP Code Phon e Number HP CONVERSION AST (06/20/2002 9:26 AM PATIENT CARE) [facility] gist Method Time Signature Aspartate 13 0 - 45 HP CONVERSION Aminotransferase U/L Specimen (Source) Anatomical Collection Method Collection Time Re ceived Time Location / / Volume Laterality 06/20/2002 9:26 AM PATIENT CARE [facility] Performing Organization Address City/State/ZIP Code Phon e Number HP CONVERSION Bilirubin, Direct (06/20/2002 9:26 AM PATIENT CARE) athologist Signature Bilirubin, 0.1 0.0 - 0.4 HP CONVERSION Direct mg/dL Specimen (Source) Anatomical Collection Method Collection Time Re ceived Time Location / / Volume Laterality 06/20/2002 9:26 AM PATIENT CARE Jal[facility] Performing Organization Address City/State/ZIP Code Phon e Number HP CONVERSION Bilirubin, Total (06/20/2002 9:26 AM PATIENT CARE) athologist Signature Bilirubin Total 0.4 0.2 - 1.2 HP CONVERSION mg/dL Specimen (Source) Anatomical Collection Method Collection Time Re ceived Time Location / / Volume Laterality 06/20/2002 9:26 AM PATIENT CARE [facility] Performing Organization Address City/State/ZIP Code Phon e Number HP CONVERSION (ABNORMAL) Lipid Panel and Direct LDL(If Needed) (06/20/2002 9:26 AM PATIENT CARE) [facility] Method Time Signature Length Of Fast 14.0 [...] / / Volume Laterality 06/20/2002 9:26 AM PATIENT CARE Marquesl[facility] Performing Organization Address City/State/ZIP Code Phon e Number HP CONVERSION HIV Antibody (06/20/2002 9:26 AM PATIENT CARE) athologist Signature HIV 1/HIV 2 Non Reac Non Reac HP CONVERSION Specimen (Source) Anatomical Collection Method Collection Time Re ceived Time Location / / Volume Laterality 06/20/2002 9:26 AM PATIENT CARE Jalal [facility]1 Performing Organization Address City/[facility]/ZIP [facility] Phon e Number HP CONVERSION (ABNORMAL) Urinalysis Complete Hold Culture (12/21/2001 10:50 AM CDT) [facility] Method Time Signature U Specific 1.020 1.005 - 25 HP CONVERSION Graham pH Urine 6.5 4.5 - 7.5 HP [...] Ir Radiologist Radiology LAB_1 Performing Organization Address City/[facility] Phon e Number HP CONVERSION (ABNORMAL) Lipid Panel and Direct LDL(If Needed) (12/21/2001 10:50 AM CDT) [facility] Method Time Signature Length Of Fast 14.0 [...] Ir Radiologist Radiology LAB_1 Performing Organization Address City/[facility]/ZIP Code Phon e Number HP CONVERSION [...] Ir Radiologist Radiology LAB_1 Performing Organization Address City/[facility]/ZIP [facility] Phon e Number HP CONVERSION AST (12/21/2001 10:50 AM CDT) [facility] gist Method Time Signature Aspartate 20 0 - 45 HP CONVERSION Aminotransferase U/L Specimen (Source) Anatomical Collection Method Collection Time Re ceived Time Location / / Volume Laterality 12/21/2001 10:50 AM CDT Ir Radiologist Radiology LAB_1 Performing Organization Address City/[facility] Phon e Number HP CONVERSION ALT (SGPT) (12/21/2001 10:50 AM CDT) [facility] gist Method Time Signature Alanine 42 [...] Ir Radiologist Radiology LAB_1 Performing Organization Address City/[facility]/ZIP [facility] Phon e Number HP CONVERSION Thyroid Stimulating Hormone (12/21/2001 10:50 AM CDT) athologist Signature Thyroid 1.57 0.20 - HP CONVERSION Stimulating 5.50 Hormone uIU/mL Specimen (Source) Anatomical Collection Method Collection Time Re ceived Time Location / / Volume Laterality 12/21/2001 10:50 AM CDT Ir Radiologist Radiology LAB_1 Performing Organization Address City/State/ZIP [facility] Phon e Number HP CONVERSION (ABNORMAL) Hemoglobin, Blood (12/21/2001 10:50 AM CDT) athologist Signature Hemoglobin 17.8 (HH) 13.4 - HP CONVERSION 17.5 gm/dL Specimen (Source) Anatomical Collection Method Collection Time Re ceived Time Location / / Volume Laterality 12/21/2001 10:50 AM CDT Ir Radiologist Radiology LAB_1 Performing Organization Address [facility] Phon e Number HP CONVERSION Electrolytes (NA, [...] Ir Radiologist Radiology LAB_1 Performing Organization Address City/[facility] Phon e Number HP CONVERSION BUN (09/14/2000 9:57 AM CDT) athologist Signature Blood Urea 14 5 - 26 HP CONVERSION Nitrogen mg/dL Specimen (Source) Anatomical Collection Method Collection Time Re ceived Time Location / / Volume Laterality 09/14/2000 9:57 AM CDT Ir Radiologist Radiology LAB_1 Performing Organization Address City/[facility] Phon e Number HP CONVERSION Creatinine / [...] Ir Radiologist Radiology LAB_1 Performing Organization Address City/[facility]/ZIP Code Phon e Number HP CONVERSION Lipid Profile= Chol,Trig,HDL,LDL (09/14/2000 9:57 AM CDT) [facility] gist Method Time Signature Cholesterol/HDL 4.7 [...] Total Adult Males (09/14/2000 9:57 AM CDT) [facility] gist Method Time Signature Testosterone 184 [...] CONVERSION ALT (SGPT) (09/17/1999 8:30 AM CDT) [facility] gist Method Time Signature Alanine 50 [...] Henrique Cooper MD LAB_1 Performing Organization Address [facility] Phon e Number HP CONVERSION Glucose (09/17/1999 8:30 AM CDT) athologist Signature Length Of Fast 11.5 8.0 - 24.0 HP CONVERSION Hours Lab Glucose 108 70 - 115 HP CONVERSION mg/dL Specimen (Source) Anatomical Collection Method Collection Time Re ceived Time Location / / Volume Laterality 09/17/1999 8:30 AM CDT Henrique Cooper MD LAB_1 Performing Organization Address [facility] Phon e Number HP CONVERSION (ABNORMAL) Lipid Panel and Direct LDL(If Needed) (09/17/1999 8:30 AM CDT) [facility] gist Method Time Signature Length Of [...] CONVERSION (ABNORMAL) Hemoglobin, Blood (06/19/1997 3:55 PM PATIENT CARE) athologist Signature Hemoglobin 17.6 (HH) 13.4 - HP CONVERSION 17.5 gm/dL Specimen (Source) Anatomical Collection Method Collection Time Re ceived Time Location / / Volume Laterality 06/19/1997 3:55 PM PATIENT CARE Henrique Cooper MD LAB_1 Performing Organization Address City/State/ZIP Code Phon e Number HP CONVERSION (ABNORMAL) Lipid Panel and Direct LDL(If Needed) (06/19/1997 3:55 PM PATIENT CARE) [facility] gist Method Time Signature Length Of [...] / / Volume Laterality 06/19/1997 3:55 PM PATIENT CARE Henrique Cooper MD LAB_1 Performing Organization Address City/[facility]/ZIP Code Phon e Number HP CONVERSION Glucose (06/19/1997 3:55 PM PATIENT CARE) athologist Signature Lab Glucose 97 70 - 115 HP CONVERSION mg/dL Specimen (Source) Anatomical Collection Method Collection Time Re ceived Time Location / / Volume Laterality 06/19/1997 3:55 PM PATIENT CARE Henrique Cooper MD LAB_1 Performing Organization Address City/State/ZIP Code Phon e Number HP CONVERSION Creatinine / GFR (06/19/1997 3:55 PM PATIENT CARE) athologist Signature Creatinine 0.7 0.5 - 1.5 HP CONVERSION Serum mg/dL Specimen (Source) Anatomical Collection Method Collection Time Re ceived Time Location / / Volume Laterality 06/19/1997 3:55 PM PATIENT CARE Henrique Cooper MD LAB_1 Performing Organization Address [...] ?VIEW. FINDINGS: ?THERE IS AN OVAL-SHAPED DENSITY GA OJECTED JUST UNDER THE ?RIGHT CLAVICLE IN [...]
--- OUTSIDE RECORDS SUMMARY | 2022-03-25 13:29 | XMS_ITS | Encounter Summary ---
:1940 Author Organization [facility] Address [address] [place] [address] Care Team Providers Name Role Phone Unavailable Primary Care Provider Unavailable Encounter Details Date Type Department Care Team Description 10/25/2002 PN Conversion Only [facility] CONVERSJose Antonio Jefferson MBBS [id number] [address] [address] [place] [address] [place] [address] (Wo rk) Social History Tobacco [...] Strep Follow up Culture @ ? Collected: ??[id number] ??[id number] Source: Throat ?Processed: ??[id number] ??[id number] ? V Final Report ------ ?[id number] ??[id number] No beta hemolytic Strep group A isolated . @ = Rapid F/U Cult Performed at ??[address] [place], [place] ?[address] Specimen (Source) Anatomical Collection Method Collection Time Re ceived Time Location / / Volume Laterality 10/25/2002 4:15 PM CDT Jose Antonio COOK LAB_1 Performing Organization Address City/State/ZIP Code Phon e Number HP CONVERSION documented in this encounter Visit Diagnoses Not on filedocumented in this encounter
--- OUTSIDE RECORDS SUMMARY | 2022-03-25 13:29 | XMS_ITS | Encounter Summary ---
:1940 Author Organization [facility] Address [address] [place] [address] Care Team Providers Name Role Phone Unavailable Primary Care Provider Unavailable Encounter Details Date Type Department Care Team Description 08/27/1989 - 08/30/1989 Hospital Encounter [facility] CONVERSION Social History Tobacco Use Types Packs/Day [...] Default Interface Order (08/26/1989 1:46 PM CDT) [facility] Method Time Signature Surgical See Detail [...]
[2022-03-25 18:49] LABS: Albumin* 3.3 g/dL (3.3-5.0); Chloride* 93 mmol/L (96-114); Potassium* 4.3 mmol/L (3.6-5.1); Sodium* 128 mmol/L (135-149)
[2022-03-25 18:51] LABS: Bilirubin Total* 1.7 mg/dL (0.1-1.5); Creatinine* 0.8 mg/dL (0.5-1.5); Estimated Glomerular Filt Rate 88 ml/min
[2022-03-25 18:52] LABS: Alanine Aminotransferase* 49 U/L (4-50); Alkaline Phosphatase* 151 U/L (40-150); Aspartate Amino Transferase* 58 U/L (12-35); Blood Urea Nitrogen* 20 mg/dL (7-30); Calcium* 8.7 mg/dL (8.4-10.6); Carbon Dioxide* 26 mmol/L (20-32); Glucose* 129 mg/dL (60-115); Total Protein* 6.2 g/dL (6.0-8.3)
== END 2022-03-25 13:23 | disposition home or self-care (01) ==
LOC: LONREF 13:24
PROVIDERS: PCP Family Medicine; Visit Provider Family Medicine
DX: R07.89 Other chest pain (principal); R10.9 Unspecified abdominal pain; I10 Essential (primary) hypertension; E78.5 Hyperlipidemia, unspecified
CPT/HCPCS: 80053

== ENCOUNTER 2022-03-28 12:17 | Inpatient (IN) | payer MEDICARE, BC, SELFPAY ==
[2022-03-27] VITALS (19 sets, daily range): BP systolic 96–155; BP diastolic 50–78; PULSE 66–79; RESP 16–22; TEMP 36.1–36.6; O2SAT 93–98
[2022-03-27] MEDS: LACTATED RINGERS 1000 ML 1,000 ML 100 ML IV ×2 (11:35→13:49)
[2022-03-27] MEDS: SODIUM CHLORIDE 0.9 % (FLUSH) 10 ML SYRINGE IVF (11:35)
[2022-03-27] MEDS: PIPERACILLIN/TAZOBACTAM 3.375 GM in 0.9 % SODIUM CHLORIDE Mini-bag 100 ML IVPB ×3 (12:17→23:41)
[2022-03-27] MEDS: BUPIVACAINE 0.25% 30 ML 5 ML INJECTION (12:32)
--- NOTE | 2022-03-27 15:17 | PM.GSPRC ---
Operative Note Date of procedure: 03/27/22 Type of Procedure: laparoscopic cholecystectomy, modifier 22 Procedure Description: After discussing the risks and benefits of the procedure, the patient signed informed consent.? The operative site was marked and the patient was brought to the operating room and placed on the operating table in supine position.? Care was taken to pad the patient's pressure points.?? The patient was then intubated by anesthesia.?? The operative site was then prepped and draped in the usual sterile fashion.? A time-out was then performed. Entrance to the abdomen was gained via a 5 mm Visiport in the left upper quadrant. The abdomen was insufflated and briefly surveyed for signs of injury. There was none. 11 mm umbilical port was placed as well as 2 working ports along the right costal margin. Patient was then placed in reverse Trendelenburg position with the right side up. there was a significant amount of inflamed omentum adhered to the gallbladder fossa. This was gently palpated and the underlying gallbladder fundus was very firm and distended. The omental adhesions were carefully taken down bluntly and with electrocautery. The fundus was then decompressed with a laparoscopic needle. Evidence upon decompression of purulent drainage, this was sent for culture.The gallbladder fundus was grasped and retracted cephalad. There was a very thickened edematous rind around the gallbladder, which also appeared partially necrotic. The omental attachments continued to be bluntly dissected down. A significant amount of inflammatory bleeding was encountered and controlled with electrocautery. The mid portion of the body of the gallbladder was necrotic and partially transected, causing a moderate amount of purulence to be expelled. Dissection was carried down to the infundibulum. Hook cautery and blunt dissection was used to carefully dissect out the cystic duct and artery. Dissection was very difficult, secondary to the degree of inflammation and associated necrosis. The decision was made to not pursue an intraoperative cholangiogram, due to the friable nature of the tissues. Once the cystic duct was dissected out and a critical view obtained, the cystic duct and artery were each clipped with 2 clips proximally and 1 clip distally and transected with the scissors. The gallbladder was then taken off of the liver bed. And removed from the abdomen using an Endo-Catch bag. The gallbladder bed was surveyed for hemostasis. A significant amount of irrigation with normal saline was used. Hemostasis was assured. A 15Fr drain was placed in the gallbladder fossa. The umbilical port fascia was closed with 0 Vicryl. The ports were then removed under direct vision. The skin was closed with absorbable subcuticular suture. Instrument sponge and needle counts were correct at the end of the case. The patient was then woken and transferred to the PACU in stable condition. ? Findings: necrotic gallbladder with purulence and evidence of empyema of the gallbladder. Anesthesia: GETA Surgeon: Priscilla Hernandez MD Estimated blood loss (mL): 100 Condition: stable Disposition: PACU
--- NOTE | 2022-03-27 15:22 | W.ANESCHARGE ---
Anesthesia Charges Start Date/Time Anesthesia Start Date: 03/27/22 Anesthesia Start Time: 12:07 Stop Date/Time Anesthesia Stop Date: 03/27/22 Anesthesia Stop Time: 15:19 Summary Emergency: No Extremes of Age: Over 68-CPT 03067
--- NOTE | 2022-03-27 15:29 | W.ANESCHARGE ---
Anesthesia Charges Start Date/Time Anesthesia Start Date: 03/27/22 Anesthesia Start Time: 12:07 Stop Date/Time Anesthesia Stop Date: 03/27/22 Anesthesia Stop Time: 15:19 Summary Emergency: No Extremes of Age: Over 68-CPT 65937
[2022-03-27] MEDS: ONDANSETRON 2 MG/ML inj 4 MG IVP (15:39)
[2022-03-27] MEDS: HYDROmorphone 0.5 mg/0.5 ml inj IVP (16:35)
--- NOTE | 2022-03-27 17:08 | P.IMCN_ITS ---
Date of Consult Patient: [facility] Patient Consult date: 03/27/22 Requesting Physician: General Surgery Primary Care Provider: Maxwell Quinones MD Consult Narrative Reason for consult: Medical management of comorbidities Narrative: Mo Daley is a 81 year old male who underwent a cholecystectomy today with Dr. Hernandez of general surgery for acute cholecystitis. No significant surgical or anesthetic complications noted during procedure, although gallbladder was noted to be necrotic. Patient arrived to the floor in stable condition with drain in place. He is on Zosyn for antibiotic therapy. Daughter Anisa is at bedtime during my postoperative visit; neither she nor patient have any concerns for the hospitalist team. Past medical history notable for coronary artery disease, status post CABG in 2014. Patient is also a spj-ralvksv-plpxnkcwy diabetic, most recent A1c 6.7 in February of 2022. Other notable history includes essential hypertension and glaucoma. Specifically denies a history of blood clots. His PCP is Dr. Shankar locally, and his home medication list has been updated. Patient is retired with adult children locally. He lives independently and does not require assistance with ADLs. He is a non alcohol user, nonsmoker. Review of Systems Status of ROS: Reports: 10 or more systems reviewed and unremarkable except as noted in History and below PFSH PFSH Medical History (Updated 03/27/22 @ 17:21 by Chari Chandra MD) Benign paroxysmal positional vertigo H/O sebaceous cyst Surgical History (Updated 03/27/22 @ 17:18 by Chari Chandra MD) Hx of cholecystectomy Status post cataract extraction Status post coronary artery bypass graft Social History Smoking Status: Former smoker Do you use any of these nicotine containing products: None How often do you have a drink containing alcohol: 2-4 times a month Alcohol type: wine How many standard drinks containing alcohol do you have on a typical day: 1 or 2 How often do you have six or more drinks on one occasion: Never AUDIT-C Alcohol total score: 2 Non-prescribed substance use: denies use Caffeine: Yes (coffee) Little interest or pleasure in doing things: not at all Feeling down, depressed, or hopeless: not at all Meds Home Medications and Allergies Home Medications Medication Instructions Recorded Confirmed Type aspirin 81 mg chewable tablet 1 tab PO DAILY 02/27/22 03/27/22 History cholecalciferol (vitamin D3) 10 10 mcg PO QDAY 02/27/22 03/27/22 History mcg (400 unit) capsule dorzolamide-timolol (PF) 2 %-0.5 % 1 drp ophthalmic (eye) Q12H 02/27/22 03/27/22 History eye drops in a dropperette multivitamin (Multiple Vitamins 1 tab PO QAM 02/27/22 03/27/22 History tablet) tadalafil 20 mg tablet 20 mg PO ONCE PRN 02/27/22 03/27/22 History thiamine HCl (vitamin B1) 100 mg 100 mg PO QDAY 02/27/22 03/27/22 History tablet triamcinolone acetonide 0.1 % 1 applic topical BID 02/27/22 03/27/22 History topical cream Allergies Allergy/AdvReac Type Severity Reaction Status Date / Time No Known Allergies Allergy Verified 03/27/22 12:41 Exam Narrative: Exam Narrative: GEN: Alert and oriented, laying comfortably in bed, nontoxic, no tachypnea at rest HEENT: Normal external ears, EOMIs bilaterally, no scleral icterus CV: RRR, No concerning murmurs, rubs, or gallops R: LCTA bilaterally without concerning wheezing, rales, or rhonchi, air movement adequate Ext: wwp, no concerning edema Skin: No concerning skin lesions or rashes on exposed skin Neuro: Nonfocal Psych: Appropriate Const: Vital Signs, click to edit/add: Vital Signs - 24 hr 03/27/22 11:03 03/27/22 15:18 03/27/22 15:25 Temperature 96.9 F L 97.9 F Pulse Rate 79 71 68 Respiratory Rate 16 16 18 Blood Pressure 155/78 H 112/64 110/50 L Pulse Oximetry 95 97 98 Oxygen Delivery Me thod Room Air 03/27/22 15:30 03/27/22 15:35 03/27/22 15:40 Temperature 97.1 F L Pulse Rate 69 67 66 Respiratory Rate 22 20 20 Blood Pressure 96/56 L 98/58 L 108/55 L Pulse Oximetry 97 95 97 Oxygen Delivery Me thod Assessment and Plan Assessment and plan (1) Cholecystitis, acute: Problem comment: Cholecystectomy 03/27/2022 Status: Acute Assessment and Plan: - postop cholecystectomy with necrosis noted intraoperatively - continue Zosyn - pain management and antiemetics as needed, advance diet as tolerated (2) Latent autoimmune diabetes in adults, managed as type 2: Problem comment: A1C 6.7 02/28 Status: Acute Assessment and Plan: - accuchecks and SSI - restart Metformin tomorrow morning, preoperative creatinine 0.8 (3) ASCVD (arteriosclerotic cardiovascular disease): Problem comment: CABG, 2014 Status: Acute Assessment and Plan: - quiescent (4) Glaucoma: Status: Acute Assessment and Plan: - continue home eye gtts (5) Hypertension: Status: Acute Assessment and Plan: - BP 120/80 postoperatively - hold Lisinopril tonight, plan to restart tomorrow if not hypotensive - continue Metoprolol Plan - as above - hospitalist team will continue to follow patient during stay
--- NOTE | 2022-03-27 19:23 | PC.NURSE ---
Pt. up to floor at 1555, alert and oriented, [place] wears bilateral hearing aids, dtr at bedside. Pt. c/o nausea and was given zofran in PACU. Pt. rated pain 4/10 and IV Dilaudid was administered w/relief. see eMAR. 4 lap sites adhered w/glue. 1 site w/KATHY drain, patent and draining. 60cc serosanguineous fluid emptied from KATHY drain. Pt. tolerating fluids and food. Bilateral SCD's on. IV in left hand patent.
[2022-03-27] MEDS: OXYCODONE 5 MG TABLET PO (20:05)
[2022-03-27] MEDS: DORZOLAMIDE/TIMOLOL 2-0.5% OPHTH 1 DROP EYE-BOTH (20:47)
[2022-03-28] VITALS (7 sets, daily range): BP systolic 136–144; BP diastolic 69–105; PULSE 77–96; RESP 16–20; TEMP 36.7–36.9; O2SAT 93–96
[2022-03-28] MEDS: OXYCODONE 5 MG TABLET PO ×2 (02:36→11:31)
[2022-03-28] MEDS: PIPERACILLIN/TAZOBACTAM 3.375 GM in 0.9 % SODIUM CHLORIDE Mini-bag 100 ML IVPB ×4 (06:02→23:12)
--- NOTE | 2022-03-28 06:46 | ED.NURSE ---
Shift note: Pt is doing well ambulating with assist of 1 to and from washroom. Able to urinate but has not been able to pass gas or BM. Pain level has been between 2 and 4 and has been effectively managed with PRN Oxycodone. Dressing appears clean and dry. KATHY drained about 60ml o bloody drainage. Alert and oriented. V/S WNL.
[2022-03-28 06:58] LABS: Basophils Percent Auto 0.1 % (0.0-3.0); Eosinophils Percent Auto 0.1 % (0.0-7.0); Hematocrit 34.1 % (37.0-53.0); Hemoglobin* 11.4 gm/dL (13.5-17.5); Immature Granulocytes Pct Auto 0.8 %; Mean Corpuscular HGB Conc 33 gm/dL (32-36); Mean Corpuscular Hemoglobin 28 pg (26-34); Mean Corpuscular Volume 82 fL (80-100); Monocytes Percent Auto 5.7 % (0.0-11.0); Neutrophils Percent Auto 88.3 % (42.0-72.0); Platelet Count* 345 K/uL (140-440); RDW Coefficient of Variation % 14.5 % (11.5-15.5); Red Blood Count 4.14 m/uL (4.30-5.90)
[2022-03-28 07:13] LABS: Slide Review Reflex No
[2022-03-28 07:31] LABS: Chloride* 96 mmol/L (96-114); Potassium* 3.9 mmol/L (3.6-5.1); Sodium* 127 mmol/L (135-149)
[2022-03-28 07:33] LABS: Creatinine* 0.8 mg/dL (0.5-1.5); Est. Creatinine Clearance* 55.97; Estimated Glomerular Filt Rate 88 ml/min
[2022-03-28 07:34] LABS: Alanine Aminotransferase* 62 U/L (4-50); Alkaline Phosphatase* 156 U/L (40-150); Aspartate Amino Transferase* 64 U/L (12-35); Bilirubin Direct* 0.5 mg/dL (0.0-0.5); Bilirubin Total* 1.1 mg/dL (0.1-1.5); Blood Urea Nitrogen* 17 mg/dL (7-30); Calcium* 7.9 mg/dL (8.4-10.6); Carbon Dioxide* 25 mmol/L (20-32); Glucose* 162 mg/dL (60-115); Lipase* 148 U/L (23-300)
[2022-03-28] MEDS: METOPROLOL SUCCINATE (XL) 25 MG TAB PO (09:09)
[2022-03-28] MEDS: DORZOLAMIDE/TIMOLOL 2-0.5% OPHTH 1 DROP EYE-BOTH ×2 (09:09→20:44)
[2022-03-28] MEDS: SODIUM CHLORIDE 0.9 % (FLUSH) 10 ML SYRINGE 5 ML IVF ×2 (09:15→20:44)
--- NOTE | 2022-03-28 10:20 | PM.GSPN ---
Subjective Subjective Date Seen: 03/28/22 Interval history: Patient is doing well this morning. He does have some pain at the incision just above his belly button. Drain remains in place with minimal output. He has been tolerating regular diet without difficulty. Has been ambulating the hallway. No fevers overnight or acute concerns. Exam Narrative: Exam Narrative: General: Alert and oriented, no acute distress Respiratory: Equal breath rise bilaterally, maintained on room air CV: Regular rhythm rate Abdomen: Soft, appropriately tender over incision sites which are clean/dry/intact with no concern for infection. KATHY bulb in right upper quadrant with minimal serous output. Const: Vital Signs, click to edit/add: Vital Signs - 24 hr 03/27/22 11:03 03/27/22 15:18 03/27/22 15:25 Temperature 96.9 F L 97.9 F Pulse Rate 79 71 68 Pulse Rate [Right Pulse Oximeter] Respiratory Rate 16 16 18 Blood Pressure 155/78 H 112/64 110/50 L Blood Pressure [Le ft Arm] Pulse Oximetry 95 97 98 Oxygen Delivery Me thod Room Air 03/27/22 15:30 03/27/22 15:35 03/27/22 15:40 Temperature 97.1 F L Pulse Rate 69 67 66 Pulse Rate [Right Pulse Oximeter] Respiratory Rate 22 20 20 Blood Pressure 96/56 L 98/58 L 108/55 L Blood Pressure [Le ft Arm] Pulse Oximetry 97 95 97 Oxygen Delivery Me thod 03/27/22 16:10 03/27/22 18:41 03/27/22 16:00 Temperature 97.0 F L 96.9 F L 96.9 F L Pulse Rate 66 Pulse Rate [Right Pulse Oximeter] 66 Respiratory Rate 16 16 16 Blood Pressure Blood Pressure [Le ft Arm] 131/77 118/65 121/64 Pulse Oximetry 95 95 Oxygen Delivery Me thod Room Air Room Air Room Air 03/27/22 16:15 03/27/22 16:30 03/27/22 16:45 Temperature 96.9 F L 96.9 F L 96.9 F L Pulse Rate Pulse Rate [Right Pulse Oximeter] 66 66 66 Respiratory Rate 16 16 16 Blood Pressure Blood Pressure [Le ft Arm] 121/64 125/65 122/66 Pulse Oximetry 95 96 96 Oxygen Delivery Me thod Room Air Room Air Room Air 03/27/22 17:30 03/27/22 18:00 03/27/22 19:00 Temperature 97.0 F L 96.9 F L 96.9 F L Pulse Rate Pulse Rate [Right Pulse Oximeter] 66 69 70 Respiratory Rate 16 16 16 Blood Pressure Blood Pressure [Le ft Arm] 133/66 131/73 143/71 H Pulse Oximetry 95 97 97 Oxygen Delivery Me thod Room Air Room Air Room Air 03/27/22 19:00 03/27/22 20:00 03/27/22 21:03 Temperature 97.3 F L 97.5 F L 97.3 F L Pulse Rate Pulse Rate [Right Pulse Oximeter] 69 72 71 Respiratory Rate 16 16 16 Blood Pressure Blood Pressure [Le ft Arm] 140/71 H 149/75 H 144/77 H Pulse Oximetry 95 95 95 Oxygen Delivery Me thod Room Air Room Air Room Air 03/27/22 22:00 03/27/22 23:00 03/28/22 03:00 Temperature 97.3 F L 97.5 F L 98.2 F Pulse Rate Pulse Rate [Right Pulse Oximeter] 66 76 77 Respiratory Rate 16 16 16 Blood Pressure Blood Pressure [Le ft Arm] 147/71 H 101/50 L 136/105 H Pulse Oximetry 95 93 94 Oxygen Delivery Me thod Room Air Room Air Room Air Labs/Imaging Labs Labs: WBC is increased compared to the 16th (19.7). Hemoglobin dropped to 11.4 likely representing intraoperative blood loss. BMP significant for mild hyponatremia (127) Liver panel shows normalization of direct bilirubin. Down trending ALT/AST and alkaline phosphatase. Imaging Imaging: No new imaging. Progress Note: A&P Assessment and plan (1) Cholecystitis, acute: Status: Acute Assessment and Plan: Patient is postop day 1 laparoscopic cholecystectomy for gallbladder empyema. A culture was obtained intraoperatively with Gram stain showing Gram-negative bacteria. Overnight vital signs stable patient has remained afebrile. Leukocytosis is not surprisingly elevated (19.7). Drain remains in place and right upper quadrant with no evidence of bile leak or purulence. Liver panel is trending towards normal, likely exhibit display representative of past stone with low concern for choledocholithiasis and no need for ERCP at this time. Recommend that we continue IV antibiotics and will repeat liver panel tomorrow morning. Anticipate discharge in next 1-2 days. Hospitalist continues to follow, appreciate their assistance. -regular diet, senna -IV Zosyn -IV and p.o. pain meds as needed -liver panel tomorrow morning -encourage ambulation -SCDs and Lovenox for DVT prophylaxis Hospitalist continuing to follow and will help manage electrolyte abnormalities. Appreciate their assistance.
--- NOTE | 2022-03-28 11:33 | PM.IMPN1 ---
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 Status: Acute (5) Hyponatremia: Problem details: likely hypervolemia from IVF; IV lasix X1 + potassium Status: Acute (6) Latent autoimmune diabetes in adults, managed as type 2: Problem details: A1C 6.7 02/28 Status: Acute Assessment and Plan: hold metformin Time Spent With Patient Total time spent: 25 minutes Subjective Date Seen: 03/28/22 Interval history: patient new to ri daughter at bedside with her denies chest pain, sob, nausea, vomiting tolerating diet Exam Narrative: Exam Narrative: Gen: NAD HEENT: NCAT EOMI MMM CV: RRR s1 s2 LCTAB Abd: soft, nt, nd; KATHY drain with minimal serosanginous output Const: Vital Signs, click to edit/add: Vital Signs - 24 hr 03/27/22 15:18 03/27/22 15:25 03/27/22 15:30 Temperature 97.9 F Pulse Rate 71 68 69 Pulse Rate [Right Pulse Oximeter] Respiratory Rate 16 18 22 Blood Pressure 112/64 110/50 L 96/56 L Blood Pressure [Le ft Arm] Pulse Oximetry 97 98 97 Oxygen Delivery Me thod Room Air 03/27/22 15:35 03/27/22 15:40 03/27/22 16:10 Temperature 97.1 F L 97.0 F L Pulse Rate 67 66 Pulse Rate [Right Pulse Oximeter] Respiratory Rate 20 20 16 Blood Pressure 98/58 L 108/55 L Blood Pressure [Le ft Arm] 131/77 Pulse Oximetry 95 97 95 Oxygen Delivery Me thod Room Air 03/27/22 18:41 03/27/22 16:00 03/27/22 16:15 Temperature 96.9 F L 96.9 F L 96.9 F L Pulse Rate 66 Pulse Rate [Right Pulse Oximeter] 66 66 Respiratory Rate 16 16 16 Blood Pressure Blood Pressure [Le ft Arm] 118/65 121/64 121/64 Pulse Oximetry 95 95 Oxygen Delivery Me thod Room Air Room Air Room Air 03/27/22 16:30 03/27/22 16:45 03/27/22 17:30 Temperature 96.9 F L 96.9 F L 97.0 F L Pulse Rate Pulse Rate [Right Pulse Oximeter] 66 66 66 Respiratory Rate 16 16 16 Blood Pressure Blood Pressure [Le ft Arm] 125/65 122/66 133/66 Pulse Oximetry 96 96 95 Oxygen Delivery Me thod Room Air Room Air Room Air 03/27/22 18:00 03/27/22 19:00 03/27/22 19:00 Temperature 96.9 F L 96.9 F L 97.3 F L Pulse Rate Pulse Rate [Right Pulse Oximeter] 69 70 69 Respiratory Rate 16 16 16 Blood Pressure Blood Pressure [Le ft Arm] 131/73 143/71 H 140/71 H Pulse Oximetry 97 97 95 Oxygen Delivery Me thod Room Air Room Air Room Air 03/27/22 20:00 03/27/22 21:03 03/27/22 22:00 Temperature 97.5 F L 97.3 F L 97.3 F L Pulse Rate Pulse Rate [Right Pulse Oximeter] 72 71 66 Respiratory Rate 16 16 16 Blood Pressure Blood Pressure [Le ft Arm] 149/75 H 144/77 H 147/71 H Pulse Oximetry 95 95 95 Oxygen Delivery Me thod Room Air Room Air Room Air 03/27/22 23:00 03/28/22 03:00 03/28/22 07:00 Temperature 97.5 F L 98.2 F Pulse Rate Pulse Rate [Right Pulse Oximeter] 76 77 79 Respiratory Rate 16 16 16 Blood Pressure Blood Pressure [Le ft Arm] 101/50 L 136/105 H Pulse Oximetry 93 94 Oxygen Delivery Me thod Room Air Room Air 03/28/22 07:00 Temperature 98.3 F Pulse Rate Pulse Rate [Right Pulse Oximeter] 79 Respiratory Rate 16 Blood Pressure Blood Pressure [Le ft Arm] 144/72 H Pulse Oximetry 94 Oxygen Delivery Me thod Room Air Labs Labs: Laboratory Results - last 24 hr 03/28/22 03/28/22 06:19 06:19 WBC 19.70 H RBC 4.14 L Hgb 11.4 L Hct 34.1 L MCV 82 MCH 28 MCHC 33 RDW Coeff of [place] 14.5 Plt Count 345 Neut % (Auto) 88.3 H Lymph % (Auto) 5.0 L [place] % (Auto) 5.7 Eos % (Auto) 0.1 Baso % (Auto) 0.1 Neut # (Auto) 17.40 H Lymph # (Auto) 1.00 [place] # (Auto) 1.10 H Eos # (Auto) 0.00 Baso # (Auto) 0.00 Abs Immat Gran (auto) 0.20 Imm/Tot Granulo (auto) 0.8 Sodium 127 L Potassium 3.9 Chloride 96 Carbon Dioxide 25 BUN 17 Creatinine 0.8 Estimated Creat Clear 55.97 Estimated GFR 88 Glucose 162 H Calcium 7.9 L Total Bilirubin 1.1 Direct Bilirubin 0.5 AST 64 H ALT 62 H Alkaline Phosphatase 156 H Total Protein 6.0 Albumin 3.0 L Lipase 148
[2022-03-28] MEDS: POTASSIUM CHLORIDE 10 MEQ CAPSULE ER 20 MEQ PO (12:57)
[2022-03-28] MEDS: FUROSEMIDE 10 MG/ML inj 20 MG IVP (12:57)
[2022-03-28] MEDS: ENOXAPARIN 40 MG/0.4 ML INJ SUBCUT (20:43)
[2022-03-29 02:55] VITALS: BP 132/88; PULSE 82; RESP 16; TEMP 36.7; O2SAT 93
[2022-03-29 03:06] VITALS: TEMP 36.7
[2022-03-29] MEDS: ACETAMINOPHEN 325 MG TABLET 650 MG PO ×2 (03:06→11:12)
--- NOTE | 2022-03-29 04:50 | PC.NURSE ---
Pt rested well this night. Wounds CDI. KATHY showing very little drainage. Pain controlled and tolerated with Tylenol. Pt up to BR and voiding. VS unremarkable. Afebrile.
[2022-03-29] MEDS: PIPERACILLIN/TAZOBACTAM 3.375 GM in 0.9 % SODIUM CHLORIDE Mini-bag 100 ML IVPB (05:47)
[2022-03-29 06:54] LABS: Basophils Percent Auto 0.2 % (0.0-3.0); Eosinophils Percent Auto 1.1 % (0.0-7.0); Hematocrit 33.2 % (37.0-53.0); Hemoglobin* 11.2 gm/dL (13.5-17.5); Immature Granulocytes Pct Auto 1.3 %; Lymphocytes Percent Auto 5.2 % (20-44); Mean Corpuscular HGB Conc 34 gm/dL (32-36); Mean Corpuscular Hemoglobin 28 pg (26-34); Mean Corpuscular Volume 83 fL (80-100); Monocytes Percent Auto 6.5 % (0.0-11.0); Neutrophils Percent Auto 85.7 % (42.0-72.0); Platelet Count* 397 K/uL (140-440); RDW Coefficient of Variation % 14.6 % (11.5-15.5); White Blood Count* 16.69 K/uL (4.50-11.00)
[2022-03-29 07:00] VITALS: PULSE 72; RESP 16
[2022-03-29 07:04] LABS: Albumin* 2.9 g/dL (3.3-5.0); Chloride* 98 mmol/L (96-114); Potassium* 3.6 mmol/L (3.6-5.1); Sodium* 130 mmol/L (135-149)
[2022-03-29 07:06] LABS: Carbon Dioxide* 27 mmol/L (20-32); Creatinine* 0.8 mg/dL (0.5-1.5); Est. Creatinine Clearance* 55.97; Estimated Glomerular Filt Rate 88 ml/min
[2022-03-29 07:07] LABS: Alanine Aminotransferase* 52 U/L (4-50); Alkaline Phosphatase* 164 U/L (40-150); Aspartate Amino Transferase* 43 U/L (12-35); Bilirubin Direct* 0.6 mg/dL (0.0-0.5); Bilirubin Total* 1.1 mg/dL (0.1-1.5); Glucose* 129 mg/dL (60-115); Magnesium* 2.1 mg/dL (1.5-2.6)
[2022-03-29 07:09] LABS: Slide Review Reflex No
[2022-03-29 07:23] LABS: Blood Urea Nitrogen* 15 mg/dL (7-30)
[2022-03-29 08:00] VITALS: BP 134/81; PULSE 72; RESP 16; TEMP 36.3; O2SAT 97
[2022-03-29] MEDS: DORZOLAMIDE/TIMOLOL 2-0.5% OPHTH 1 DROP EYE-BOTH (08:44)
[2022-03-29] MEDS: METOPROLOL SUCCINATE (XL) 25 MG TAB PO (08:44)
[2022-03-29] MEDS: lisinopriL 5 MG TABLET PO (08:44)
[2022-03-29] MEDS: ASPIRIN 81 MG TAB.CHEW PO (08:44)
[2022-03-29] MEDS: SENNOSIDES/DOCUSATE TABLET 1 TAB PO (08:44)
[2022-03-29] MEDS: SODIUM CHLORIDE 0.9 % (FLUSH) 10 ML SYRINGE 5 ML IVF (08:47)
--- NOTE | 2022-03-29 09:59 | P.IMPN_ITS ---
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 Status: Acute Plan discharging today; he should have LFTs checked in one week at PCP appointment discussed with patient and daughter Time Spent With Patient Total time spent: 25 Subjective Date Seen: 03/29/22 Interval history: patient discharging today in good spirits daughter at bedside sodium improved to 130 today Exam Narrative: Exam Narrative: Gen: no acute distress HEENT: NCAT EOMI MMM CV : RRR s1 s2 L: CTAB Abd: soft, nt, nd Const: Vital Signs, click to edit/add: Vital Signs - 24 hr 03/28/22 11:00 03/28/22 15:00 03/28/22 15:00 Temperature 98.2 F 98.1 F Pulse Rate [Right Pulse Oximeter] 84 96 81 Respiratory Rate 16 16 16 Blood Pressure [Le ft Arm] 140/69 H 141/73 H Pulse Oximetry 95 96 Oxygen Delivery Me thod Room Air Room Air 03/28/22 20:30 03/28/22 23:00 03/28/22 23:09 Temperature 98.3 F 98.4 F Pulse Rate [Right Pulse Oximeter] 83 82 82 Respiratory Rate 20 18 16 Blood Pressure [Le ft Arm] 138/73 143/83 H Pulse Oximetry 93 95 Oxygen Delivery Me thod Room Air Room Air 03/29/22 02:55 03/29/22 03:06 Temperature 98.1 F 98.1 F Pulse Rate [Right Pulse Oximeter] 82 Respiratory Rate 16 Blood Pressure [Le ft Arm] 132/88 Pulse Oximetry 93 Oxygen Delivery Me thod Room Air Labs Labs: Laboratory Results - last 24 hr 03/29/22 03/29/22 05:36 05:36 WBC 16.69 H RBC 4.00 L Hgb 11.2 L Hct 33.2 L MCV 83 MCH 28 MCHC 34 RDW Coeff of [place] 14.6 Plt Count 397 Neut % (Auto) 85.7 H Lymph % (Auto) 5.2 L [place] % (Auto) 6.5 Eos % (Auto) 1.1 Baso % (Auto) 0.2 Neut # (Auto) 14.30 H Lymph # (Auto) 0.90 [place] # (Auto) 1.10 H Eos # (Auto) 0.20 Baso # (Auto) 0.00 Abs Immat Gran (auto) 0.20 Imm/Tot Granulo (auto) 1.3 Sodium 130 L Potassium 3.6 Chloride 98 Carbon Dioxide 27 BUN 15 Creatinine 0.8 Estimated Creat Clear 55.97 Estimated GFR 88 Glucose 129 H Calcium 8.0 L Magnesium 2.1 Total Bilirubin 1.1 Direct Bilirubin 0.6 H AST 43 H ALT 52 H Alkaline Phosphatase 164 H Total Protein 6.0 Albumin 2.9 L
--- NOTE | 2022-03-29 10:16 | PM.DS1 ---
DS: Providers Provider Date Seen: 03/29/22 Date of admission: 03/28/22 12:17 Primary care physician: Maxwell Quinones MD Admitting Clinician: Priscilla Hernandez MD Attending Physician on discharge: Perry Dejesus MD DS: Summary Hospital Course Hospital Course: Patient went to the operating room for acute cholecystitis. He underwent a laparoscopic cholecystectomy, with evidence of gallbladder empyema intraoperatively. A drain was left in place and he was continued postoperatively on IV antibiotics. Evidence of return of bowel function by postop day 2. His LFTs did trend towards normal during his hospital stay. Drain had minimal serous output was removed prior to discharge. He remained afebrile and had down trending WBC. At the time of discharge he was tolerating a low-fat diet, pain was well controlled without the need for pain medication and he was ambulating without difficulty. He was instructed to continue his course of oral antibiotics (Augmentin) once he returned home. He will follow up with his primary care provider early next week to recheck his liver enzymes and make sure that he is continuing to progress well post hospital stay. Time Spent with Patient Time attestation: Total time spent providing and/or coordinating discharge services: Exam Narrative: Exam Narrative: general: Alert and oriented, no acute distress abdomen: Soft, nontender and nondistended. Incisions clean/dry / intact. Some ecchymoses around umbilical incision. No concern for infection. Drain with minimal serous output and removed at bedside. Const: Vital Signs, click to edit/add: Vital Signs - 24 hr 03/28/22 11:00 03/28/22 15:00 03/28/22 15:00 Temperature 98.2 F 98.1 F Pulse Rate [Right Pulse Oximeter] 84 96 81 Respiratory Rate 16 16 16 Blood Pressure [Le ft Arm] 140/69 H 141/73 H Pulse Oximetry 95 96 Oxygen Delivery Me thod Room Air Room Air 03/28/22 20:30 03/28/22 23:00 03/28/22 23:09 Temperature 98.3 F 98.4 F Pulse Rate [Right Pulse Oximeter] 83 82 82 Respiratory Rate 20 18 16 Blood Pressure [Le ft Arm] 138/73 143/83 H Pulse Oximetry 93 95 Oxygen Delivery Me thod Room Air Room Air 03/29/22 02:55 03/29/22 03:06 Temperature 98.1 F 98.1 F Pulse Rate [Right Pulse Oximeter] 82 Respiratory Rate 16 Blood Pressure [Le ft Arm] 132/88 Pulse Oximetry 93 Oxygen Delivery Me thod Room Air DS: Data Data Completed and Pending Labs on day of discharge: Labs from last 24 hours 03/29/22 03/29/22 05:36 05:36 WBC 16.69 H RBC 4.00 L Hgb 11.2 L Hct 33.2 L MCV 83 MCH 28 MCHC 34 RDW Coeff of Elizabeth 14.6 Plt Count 397 Neut % (Auto) 85.7 H Lymph % (Auto) 5.2 L Mcminn % (Auto) 6.5 Eos % (Auto) 1.1 Baso % (Auto) 0.2 Neut # (Auto) 14.30 H Lymph # (Auto) 0.90 Mcminn # (Auto) 1.10 H Eos # (Auto) 0.20 Baso # (Auto) 0.00 Abs Immat Gran (auto) 0.20 Imm/Tot Granulo (auto) 1.3 Sodium 130 L Potassium 3.6 Chloride 98 Carbon Dioxide 27 BUN 15 Creatinine 0.8 Estimated Creat Clear 55.97 Estimated GFR 88 Glucose 129 H Calcium 8.0 L Magnesium 2.1 Total Bilirubin 1.1 Direct Bilirubin 0.6 H AST 43 H ALT 52 H Alkaline Phosphatase 164 H Total Protein 6.0 Albumin 2.9 L Preliminary micro results at discharge 03/27/22 12:40 Gram Stain - Preliminary Gallbladder Fluid Aerobic Culture - Preliminary Discharge Plan Discharge Disposition: Home, Self-Care Date of Admission: 03/28/22 12:17 Attending Provider on Discharge: Priscilla Hernandez Consulting Providers: Perry Dejesus Primary Care Provider: Maxwell Quinones Condition: Improved Anticipated Discharge Date/Time: 03/29/22 10:13 Discharge Medications: New senna 8.6 mg capsule 8.6 mg PO DAILY PRN (Reason: constipation) Qty: 90 0RF Continued aspirin 81 mg tablet,chewable 1 tab PO DAILY multivitamin [Multiple Vitamins] Tablet 1 tab PO QAM tadalafil 20 mg tablet 20 mg PO ONCE PRN Rx Instructions: TAKE ONE TABLET 30 MIN TO 36 HRS PRIOR TO INTERCOURSE triamcinolone acetonide 0.1 % cream 1 applic topical BID dorzolamide-timolol (PF) 2-0.5 % dropperette 1 drp ophthalmic (eye) Q12H lisinopril 5 mg tablet 5 mg PO BID Qty: 180 3RF metformin 500 mg tablet 500 mg PO BID Qty: 180 0RF Rx Instructions: Pt taking 1 tab in the AM and 2 tabs in the PM metoprolol succinate 25 mg tablet extended release 24 hr 25 mg PO DAILY Qty: 90 3RF amoxicillin-pot clavulanate 875-125 mg tablet 1 tab PO BID Qty: 20 0RF Discharge Orders: Discharge Order (Routine); Ordered 03/29/22 Ordered By: Priscilla Hernandez Patient Education: Sleep Apnea (DC), Surgical Site Infections (DC), General Anesthesia (DC), Laparoscopic Cholecystectomy (DC), Post-Operative Instructions: Laparoscopic Cholecystectomy Additional Instructions: Okay to shower, do not soak in a bath or swim for 2 weeks. Please call the clinic if you develop any increasing abdominal pain or fevers. You previously were prescribed a prescription of antibiotics by Dr. Quinones, please restart this prescription when you get home. Follow-up with Dr. Quinones early next week to recheck your liver enzymes. Activity Level: No strenuous activity Activity Detail: Activity as tolerated. Avoid strenuous activity. No lifting greater than 20 lb for 2 weeks. Discharge Diet: Low Fat/Low Cholesterol Follow Up Appointments: Priscilla Hernandez MD [Staff Physician] - (Two week follow-up) Maxwell Quinones MD [Primary Care Provider] - Forms: Work/Release Restrictions
[2022-03-29 11:40] VITALS: BP 108/55; PULSE 66; RESP 16; TEMP 36.3
--- NOTE | 2022-03-29 13:26 | PC.NURSE ---
Pt. alert and oriented x4, pleasant and cooperative. Lap sites CDI. KATHY showing very little drainage. Pain controlled and tolerated with Tylenol PRN see eMAR. Pt up to BR and voiding, up to chair for meals. VSS. Afebrile. Discharge instructions given, belongings list signed and pt. and dtr verbalized understanding of discharge teaching. IV removed from right arm intact. Pt. Discharged via wheelchair accompanied by dtr and son in law at 1200.
--- NOTE | 2022-03-31 14:56 | SUR.OPER ---
Verified with Jaret that she finished the case and charting.
== END 2022-03-29 12:00 | disposition home or self-care (01) | DRG 418 ==
LOC: OR 15:31 → MEDSURG 15:31
PROVIDERS: Admitting Provider Surgery; PCP Family Medicine; Visit Provider Hospitalist
PROC: 0FT44ZZ Resection of Gallbladder, Percutaneous Endoscopic Approach (ICD-10-PCS; CPT 47563; principal; 2022-03-27 12:00)
DX: K80.12 Calculus of gallbladder with acute and chronic cholecystitis without obstruction (principal); E87.1 Hypo-osmolality and hyponatremia; K82.A1 Gangrene of gallbladder in cholecystitis; E10.9 Type 1 diabetes mellitus without complications; Z79.84 Long term (current) use of oral hypoglycemic drugs; I11.9 Hypertensive heart disease without heart failure; I25.10 Atherosclerotic heart disease of native coronary artery without angina pectoris; Z95.1 Presence of aortocoronary bypass graft; H40.9 Unspecified glaucoma; I45.10 Unspecified right bundle-branch block; N52.9 Male erectile dysfunction, unspecified
CPT/HCPCS: 00790; 36415; 80048; 80076; 82962; 83690; 83735; 85025; 87186; 87205; 88304; 99100; A9270; J0131; J0330; J1100; J1170; J1650; J1940; J2370; J2405; J2543; J2704; J3010; J3490; J7120

== ENCOUNTER 2022-04-01 13:12 | Outpatient (CLI) | payer MEDICARE, BC, SELFPAY ==
--- OUTSIDE RECORDS SUMMARY | 2022-04-01 13:15 | XMS_ITS | Encounter Summary ---
:1940 Author Organization [facility] Address [address] [place] [address] Care Team Providers Name Role Phone Unavailable Primary Care Provider Unavailable Encounter Details Date Type Department Care Team Description 03/17/2021 Immunization Department of [facility] Fabian Sheikh Enc ounter For COVID-19 Medicine in [facility] Vaccine Immunization [place], [place] [address] [place] [address] [id number] Social History Tobacco Use Types Packs/Day Years Used Date Smoking Tobacco: Former Sex Assigned at Date Recorded Not on file documented as of this encounter Plan of Treatment Not on filedocumented as of this encounter Visit Diagnoses Diagnosis Encounter For COVID-19 Vaccine Immunizat ion documented in this encounter
--- OUTSIDE RECORDS SUMMARY | 2022-04-01 13:15 | XMS_ITS | Encounter Summary ---
:1940 Author Organization [facility] Address [address] [place] [address] Care Team Providers Name Role Phone Unavailable Primary Care Provider Unavailable Reason for Visit Reason Comments Other Encounter Details Date Type Department Care Team Description 01/12/2008 Telephone [facility], Message Other [address] [place], [place] [address] Social History Tobacco Use Types Packs/Day Years Used Date Smoking Tobacco: Never Assessed Sex Assigned at Date Recorded Not on file documented as of this encounter [facility], Message - 01/12/2008 2:17 PM CDT Phone Note filed by [facility] at 08/28/10457 Author: [facility] Service: (none) Author Type: (none) Filed: 08/28/10457 Note Time: 01/12/081416 Status: Signed 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 Pharmacy Seq #:[id number] Pharmacy Name & Phone #: [facility] Street/City: [place] Comment: NEED A PA Clinician Name:Mony OSMAN Drug Name/Strength:ANDROGEL 1% GEL PCKT Sig: Formulary Alternative Meds from Pharmacy: Insurance Carrier: [employer] [phone] Call Back Phone or Cell Phone: Is [...] is currently looking for new doctor in [place]. [phone] home vm ok. On 13Jan2008 10:55am SANTOS RIVERA wrote: Pharmacy is calling back and would like to know the quantity of the androgel. Pt thought it was the quantity of 30. The pharmacy has 3 packets that was faxed Jan 11. The pharmacy number is [phone] [place]. On 13Jan2008 4:11pm VAUGHN FISHER wrote: PA faxed and pending. On 13Jan2008 4:11pm VAUGHN FISHER wrote: PA faxed and pending. On 16Jan2008 4:43pm SANDRA OSMAN wrote: GOYO SEE NOTE I JUST SENT TO YOU Acknowledged by SANDRA OSMAN on 4:43pm On 16Jan2008 5:00pm GOYO OSMAN wrote: Noted. 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
--- OUTSIDE RECORDS SUMMARY | 2022-04-01 13:15 | XMS_ITS | Clinical Summary ---
:1940 External Reference #:NONE Author Organization [facility] [place] [address] Care Team Providers Name Role Phone Maxwell [...] No - primary con cerned persons include: Anisa/daughter/[phone]-cell Who is the backup family spokesperson: Name/relationship/phone (see row detail) Nileshy/daughter/[phone]-cell/ Breanne/daughter [phone] Patient has Advance Care Plan Documents (Health Care Directive, POLST): No, Health Care Packet given to patient. Patient has identified Specific Treatmen t Preferences: No Specific limits to treatment preferences NOT identified: ASSUME FULL TREATMENT. Coronary artery disease involving coquille coronary germain ry 04/06/2015 Overview: 3 vessel disease on coronary angiogram f rom 03/2015 NSTEMI (non-ST elevated myocardial infarction) 015 HTN (hypertension) 04/05/2015 Hyperlipidemia 04/05/2015 Type 2 diabetes mellitus without complication 04/05/20 15 Testicular hypofunction 08/03/2005 Overview: Overview: LW Onset: Benign neoplasm of colon 08/03/2005 Overview: Overview: LW Modifier: NEED REPEAT COLONOSCOPY 200 7 LW Onset: 06/2003 Encounters Date Type Specialty Care Team Description 03/27/2022 Lab Requisition Priscilla Hernandez MD from Last 3 Months Family History Medical History Relation Name Comments [...] Comments Blood Pressure 116/76 07/16/2015 11:37 AM GANG DRILL OPERATOR Pulse 81 07/16/2015 11:37 AM GANG DRILL OPERATOR Temperature 36.2 ??C (97.1 ??F) 05/01/2015 11:00 AM GANG DRILL OPERATOR Respiratory Rate 18 05/01/2015 11:00 AM GANG DRILL OPERATOR Oxygen Saturation 94% 07/16/2015 11:37 AM GANG DRILL OPERATOR Inhaled Oxygen Concentration - - Weight 96.3 kg (212 lb 3.2 oz) 07/16/2015 11:37 AM GANG DRILL OPERATOR Height 179.1 cm (5' 10.5) 04/16/2015 9:00 AM GANG DRILL OPERATOR Body Mass Index 30.02 04/16/2015 9:00 AM GANG DRILL OPERATOR Plan of Treatment Health Maintenance Due Date Last Done Comments Tdap 1951 Depression screening for age 12+ 1950 BMI (ht and wt on same day) for age 1204/28/1956 18+ Tetanus booster 1958 Zoster (shingles) series for age 50+ 1988 (1 of 2) Pneumococcal series for age 65+ (1 - 2003 PCV) COVID-19 vaccine series (4 - Booster 05/12/2021 03/17/2021, 07/02/2020, for Pfizer series) 06/11/2020 Influenza for age 65+ 01/08/2022 Procedures Procedure Name Priority Date/Time Associated Diagnosis Comme nts LAB TRACKING EVENT Routine 03/27/2022 2:38 PM GANG DRILL OPERATOR PATH TISSUE EXAM Routine 03/27/2022 2:38 PM Resul ts for this GANG DRILL OPERATOR procedure are i n the results section. from Last 3 Months Results LAB TRACKING EVENT (03/27/2022 2:38 PM GANG DRILL OPERATOR) Specimen Anatomical Collection Method Collection Time Receive d Time (Source) Location / / Volume Laterality Other (Other) Client Collect / 03/27/2022 2:38 PM 03/10 8:30 Unknown GANG DRILL OPERATOR PM GANG DRILL OPERATOR Priscilla Hernandez MD LAB BILL ONLY Performing Organization Address City/State/ZIP Code Phon e Number [facility] [address] [place] [address] LABORATORY-CENTRAL 2000 LABORATORY PATH TISSUE EXAM (03/27/2022 2:38 PM GANG DRILL OPERATOR) Component Value Ref Test Analysis Performed At [facility] gist Range Method Time Signature Case Report Pathology Report ?Case: [id number] ? 04/01/2022 PRICILA Authorizing Provider: ??Priscilla Banks MD ??Collected: ? 03/27/2022 1438 ? 9:27 AM HEALTH Ordering Location: ? [facility] LAB ?Received: ?03/28/2022 0810 ? GANG DRILL OPERATOR ELAINA VILLAR Pathologist: ? Perez Calle ? ENTRAL ? MD [facility] ? LABORATORY Specimen: ?Gallbladder ? Final A) GALLBLADDER, CHOLECYSTECTOMY: 022 [facility] Electronically Diagnosis 1. Chronic cholecystitis 9:27 AM HEALT H signed by 2. Cholelithiasis GANG DRILL OPERATOR LABORATORY-C Luc, 3. Negative for dysplasia and malignancy ENTRAL Perez AGUILERA IV, MD on 04/01/2022 at 9:27 AM Clinical Mr. Daley is a 81 04/01/2022 [facility] Information y.o. who 9:27 AM HEALTH undergoes GANG DRILL OPERATOR LABORATORY-C cholecystectomy. ENTRAL LABORATORY Gross A) Received in formalin, lab eled with the patient's name and gallbladder, is a 10.5 x 4.2 x 4 cm aggregate of a hemorrhagic partially opened gallbladder. ??The lumen contains several black choleliths 04/01/2022 [facility] Description up to 0.5 cm. ??The serosa i s hemorrhagic, maroon-brown with ragged variably thickened adhesions. ??The wall is 1.5 cm thick with transmural hemorrhage and fibrous tissue. ??The mucosa is hemorrhagic gr 9:27 AM HEALTH een-taylor variably eroded and without discrete lesions. ??Adjacent to the ill- defined gallbladder neck is a 1.3 cm hemorrhagic probable lymph node. ??Medical Housekeeper sections are submitted in 2 cassettes: GANG DRILL OPERATOR LABORATORY-C 1. ??Gallbladder body and possible lymph node, bisected ENTRAL 2. ??Gallbladder, neck and fundus LABORATORY The specimen was placed in formalin at 1445 on 03/27/2022. LDW 03/30/2022 Microscopic The final diagnosis is based on microscopic examination of appropriate sections of all specimens. 04/01/2022 AL MARISSA Description 9:27 AM HEALTH GANG DRILL OPERATOR LABORATORY-C ENTRAL LABORATORY Additional 04/01/2022 [place] Information Interpreted at [facility], Central Laboratory - [address], [place] [address] 9:27 AM HEALTH GANG DRILL OPERATOR LABORATORY-C ENTRAL LABORATORY Specimen Anatomical Location Collection Method Collection Time Received Time (Source) / Laterality / Volume Other SPECIMEN FROM 03/27/2022 2:38 03/28/2022 8:10 GALLBLADDER / PM GANG DRILL OPERATOR AM GANG DRILL OPERATOR Unknown Priscilla Hernandez MD PATHOLOGY/CYTOLOGY Performing Organization Address City/State/ZIP Code Phon e Number [facility] [address] [place] [address] LABORATORY-CENTRAL 2000 LABORATORY from Last 3 Months Insurance Payer Benefit Plan / Subscriber ID Effective Phone Address T ype Group Dates COMMERCIAL COMMERCIAL NONE Effective for [phone] ATTN LIABIL ITY all dates [address] [place] [address] MEDICARE PART B MEDICARE PART B [id number] 2003-Pre A TTN: CLAIMS - HB USE ONLY HB ONLY sent [address] [place] [address] MEDICARE PART A MEDICARE PART A [id number] 2003-Pre A TTN: CLAIMS - HB USE ONLY HB ONLY sent [address] [place] [address] MEDICARE PPS HC MEDICARE PPS [id number] 2003-Pre [address] sent [address] [place] [address] MEDICARE - PB MEDICARE PB [id number] 2003-Pre ATTN: C LAIMS USE ONLY ONLY sent [address] [place] [address] BLUE CROSS BLUE CROSS [id number] 2014-Pres [address] [address] [place], [place] HB ONLY [id number] (Home) [facility] [place] [address] Mo Daley Personal/Family Self 1940 [address] (Home) [address] [facility] [place] [address] Mo Daley [employer] Republican Self 1940 [phone] [employer] (Home) [facility] [place] [address] Advance Directives Documents on File Type Date Recorded Patient Medical Housekeeper Explanati on Healthcare Directive 04/05/2015 12:00 AM 0 1 Latest Code Status on File Code Status Date Activated Date Inactivated Comments Full Code 04/08/2015 4:25 PM 04/14/2015 2:11 PM Full Code 04/05/2015 1:12 PM 04/08/2015 4:25 PM Care Teams [employer] Salesperson Relationship Specialty Start Date End Date Maxwell Quinones MD PCP - General Family Practice 04/11/15
--- OUTSIDE RECORDS SUMMARY | 2022-04-01 13:15 | XMS_ITS | Encounter Summary ---
:1940 Author Organization [facility] Address [address] [place] [address] Care Team Providers Name Role Phone Unavailable Primary Care Provider Unavailable Encounter Details Date Type Department Care Team Description 04/02/2015 Hospital Encounter HX [facility] MAN Nate Hawkins M.D. [address] [place] [address] [phone] (Wo rk) Social History Tobacco Use Types Packs/Day Years Used Date Smoking Tobacco: Never Assessed Sex Assigned at Date Recorded Not on file documented as of this encounter Last Filed Vital Signs Vital Sign Reading Time Taken Comments Blood Pressure 147/83 04/02/2015 12:30 PM ELEMENTARY INSTRUCTIONAL COACH Pulse 58 04/02/2015 12:30 PM ELEMENTARY INSTRUCTIONAL COACH Temperature - - Respiratory Rate 20 04/02/2015 12:30 PM ELEMENTARY INSTRUCTIONAL COACH Oxygen Saturation - - Inhaled Oxygen Concentration - - Weight - - Height - - Body Mass Index - - documented in this encounter Discharge Summaries Toma Floyd R.N. - 04/02/2015 1:30 PM CST ED Discharge Instructions [place] [address] [place] [address] Name: MO DALEY Date of : 1940 12:00 PM Visit Date: 04/02/2015 11:01 AM [facility] Number: [id number] Address: [address] [address] [facility] [id number] Primary Care Provider: PCP, ELSEWHERE IMPORTANT: [facility] in [place] would like to thank you for allowing [...] ?? Press the button on the top. [place] once on or under your tongue. Do [...] more often, or are more severe. ?? [address] [address]. All rights reserved. This information is not [...] heart problem may be getting worse. ?? [facility], [address] [place] [address]. All rights reserved. This information is not [...] if you dont have one. Go to [email or web address] and click on Create Your Account. Then, follow the directions to complete the online form. Youll be asked for your [facility] number which you can find at the [...] nurse or physician. Patient Signature or Responsible Republican/Relationship Date Time Provider Signature Date Time IMPORTANT: [...] nurse or physician. Patient Signature or Responsible Republican/Relationship Date Time Provider Signature Date Time This document has images extracted. Please consider using [employer] for all your patient education needs. Source: [facility] PhotoTLCCHART Document Id: [id number] ENTARY INSTRUCTIONAL COACH Toma Floyd R.N. - 04/02/2015 1:30 PM CST ED Depart Summary [facility] Emergency Department Clinical Discharge Summary PERSON INFORMATION Name MO DALEY Age 74 Years 1940 12:00 PM Sex Male Language Lithuanian PCP PCP, ELSEWHERE Marital Status N [id number] Visit Id Visit Reason Chest pain; Chest pain; chest pain on exertion Specialty Enc Type Emergency Med Service Emergency Medicine Referred by Track Group MAQN ED Discharge 04/02/2015 12:45 PM Tracking Id [id number] Checkout 04/02/2015 12:45 PM Checkin 04/02/2015 11:01 AM Acuity 3 -Urgent Dispo Type * Discharged to Home or Self Care Arrival 04/02/2015 11:01 AM Reg Status LOS 000 01:44 Address: [address] [place] [phone] Comment: PROVIDER INFORMATION Provider Role Provider Contact Time MIGUEL BRICE RAND CEMENTER Nurse 04/02/15 11:08 NATE GUZMAN MD ED Provider 04/02/15 11:15 TOMA FLOYD RAND CEMENTER Nurse 04/02/15 11:55 DIAGNOSIS Comment: PATIENT EDUCATION INFORMATION Instructions: Fast-Acting Nitroglycerin; What Is Angina? Follow up: With: Address: When: CALL 911 IMMEDIATELY IF 3 NITRO PILLS ARE REQUIRED TO CONTROL YOUR PAIN OR IF YOUR PAIN DOES NOT IMPROVE. Source: [employer] Document Id: [id number] ENTARY INSTRUCTIONAL COACH documented in this encounter Nursing Notes Toma Floyd R.N. - 04/02/2015 3:13 PM CST Stress Echo Pt. was contacted and informed that his stress echo was moved up to Wednesday, 04/08 at 10:45 am. Instructed patient to check in at the front end ui developer and that the stress test would be on 2nd floor in cardiology. Electronically Signed By: TOMA FLOYD RN On: 04/02/2015 03:16 PM Source: [employer] Document Id: [id number] ENTARY INSTRUCTIONAL COACH documented in this encounter ED Notes Toma Floyd R.N. - 04/02/2015 1:29 PM CST ED Disposition Summary ED Disposition Summary Entered On: 04/02/2015 13:29 ELEMENTARY INSTRUCTIONAL COACH Performed On: 04/02/2015 13:29 ELEMENTARY INSTRUCTIONAL COACH by TOMA FLOYD RN ED Disposition Summary Accompanied By : Alone Mode of Discharge : Ambulatory Transportation : Private vehicle Printed Discharge Instructions Given to Patient : Yes Patient Status at Discharge from ED : Improved TOMA FLOYD RN - 04/02/2015 13:29 ELEMENTARY INSTRUCTIONAL COACH Source: [employer] Document Id: [id number] ELEMENTARY INSTRUCTIONAL COACH!7 ENTARY INSTRUCTIONAL COACH Shahida Sorto R.N. - 04/02/2015 12:31 PM CST ED Nurse Reassess ED Nurse Reassess Entered On: 04/02/2015 12:31 ELEMENTARY INSTRUCTIONAL COACH Performed On: 04/02/2015 12:31 ELEMENTARY INSTRUCTIONAL COACH by SHAHIDA SORTO RN Pain Assessment Pain Symptoms : No SHAHIDA SORTO RN - 04/02/2015 12:31 ELEMENTARY INSTRUCTIONAL COACH Source: [facility] POWERCHART Document Id: [id number] ELEMENTARY INSTRUCTIONAL COACH!3 ENTARY INSTRUCTIONAL COACH Nate Guzman M.D. - 04/02/2015 11:16 AM CST Chest pain Document Contains Addenda Patient: MO DALEY Age: 74 years Sex: Male : 1940 Author: NATE GUZMAN MD Attachments: None Basic Information Time seen: Immediately upon arrival. History source: Patient. Arrival mode: Private vehicle. History limitation: None. Additional information: Chief Complaint from Nursing Triage Note : Chief Complaint Description 04/02/2015 11:09 ELEMENTARY INSTRUCTIONAL COACH Chief Complaint Description Patient presents stating he [...] Troponin T (Order Processing): Stat, 04/02/2015 11:16 ELEMENTARY INSTRUCTIONAL COACH, Once CBC (includes Auto Differential) (Order Processing): Stat, 04/02/2015 11:16 ELEMENTARY INSTRUCTIONAL COACH, Once Basic Metabolic Panel (Order Processing): Stat, 04/02/2015 11:16 ELEMENTARY INSTRUCTIONAL COACH, Once Diagnostic Tests: EKG (Order Processing): 04/02/2015 11:16 ELEMENTARY INSTRUCTIONAL COACH, Reason: EKG, Stat, Stat, MAQN ED. Electrocardiogram:* [...] review:Lab results : Lab View 04/02/2015 11:15 ELEMENTARY INSTRUCTIONAL COACH Hgb 15.2 g/dL Hct 45.8 % WBC 7.8 x10(9)/L RBC 5.13 x10(12)/L MCV 89.3 fL RDW 14.2 % Platelet 249 x10(9)/L Neutro Absolute 5.34 10(9)/L Lymph Absolute 1.49 x10(9)/L [place] Absolute 0.78 x10(9)/L Eos Absolute 0.18 x10(9)/L [...] Time 04/02/2015 12:34:00, to home. Prescriptions: Prescription [facility]: nitroglycerin 0.4 mg sublingual tablet (Prescribe): [...] cardiac evaluation though he refuses. Risks including SC and were discussed with patient who is unwavering in his decision.. Electronically Signed By: NATE GUZMAN MD On: 04/02/2015 12:38 PM Modified by and Electronically Signed by: NATE GUZMAN MD On: 04/02/2015 12:38 PM Source: [facility] POWERCHART Document Id: [id number]} ENTARY INSTRUCTIONAL COACH Miguel Brice R.N. - 04/02/2015 11:09 AM CST ED Primary Assessment Document Has Been Updated ED Primary Assessment Entered On: 04/02/2015 11:14 ELEMENTARY INSTRUCTIONAL COACH Performed On: 04/02/2015 11:09 ELEMENTARY INSTRUCTIONAL COACH by MIGUEL BRICE RN Reason For Visit (As Of: 04/02/2015 11:14:07 ELEMENTARY INSTRUCTIONAL COACH) Diagnoses(Active) Chest pain Date: 04/02/2015 ; Diagnosis Type: Reason For Visit ; Confirmation: Complaint of ; Clinical Dx: Chest pain ; Classification: Medical ; Clinical Service: Non-Specified ; Code: PNED ; Probability: 0 ; Diagnosis Code: [id number] Triage Chief Complaint Description : Patient presents stating he has chest pain with activity; today it happened when he walked 100 [address] his barn. Intermittent pain with exertion over last 2-3 days. Currently denies chest pain or dizziness. Information Given By : Patient Accompanied By : Alone Mode of Arrival ED : Private vehicle Track : Medical Languages : Lithuanian Treatments Prior to Arrival : Aspirin Is Patient Female and 13-50 no hysterectomy : No MIGUEL BRICE RN - 04/02/2015 11:09 ELEMENTARY INSTRUCTIONAL COACH Pain Assessment Pain Symptoms : No MIGUEL BRICE RN - 04/02/2015 11:09 ELEMENTARY INSTRUCTIONAL COACH Comfort Measures Comfort Measures Grid [place] Application : Yes Comfortable Environment : Yes MIGUEL BRICE RN - 04/02/2015 11:09 ELEMENTARY INSTRUCTIONAL COACH ED Physician Notification Time ED Physician Notification Time : 04/02/2015 11:10 ELEMENTARY INSTRUCTIONAL COACH MIGUEL BRICE RN - 04/02/2015 11:09 ELEMENTARY INSTRUCTIONAL COACH GATO GATO Level 1 : No GATO Level 2 : Yes MIGUEL BRICE RN - 04/02/2015 11:09 ELEMENTARY INSTRUCTIONAL COACH DCP GENERIC CODE Tracking Acuity : 3 -Urgent Tracking Group : MAQN ED MIGUEL BRICE RN - 04/02/2015 11:09 ELEMENTARY INSTRUCTIONAL COACH Allergy (As Of: 04/02/2015 11:14:08 ELEMENTARY INSTRUCTIONAL COACH) Allergies (Active) No Known Medication Allergies Estimated Onset Date: Unspecified ; Created By: MIGUEL BRICE RN; Reaction Status: Active ; Category: Drug ; Substance: No Known Medication Allergies ; Type: Allergy ;Updated By: MIGUEL BRICE RN; Reviewed Date: 04/02/2015 11:12 ELEMENTARY INSTRUCTIONAL COACH ID Screen Drug Resistant Organism : No Travel Within Last 21 Days : No Contact with someone with Ebola : No MIGUEL BRICE RN - 04/02/2015 11:09 ELEMENTARY INSTRUCTIONAL COACH TB Symptoms Grid Bloody Sputum : No Fatigue : No Fever : No Loss of Appetite : No Night Sweats : No Persistent Cough Greater Than 3 Weeks : No Weight Loss : No MIGUEL BRICE RN - 04/02/2015 11:09 ELEMENTARY INSTRUCTIONAL COACH Alcohol and Drug Use : No Employee [...] No MIGUEL BRICE RN - 04/02/2015 11:09 ELEMENTARY INSTRUCTIONAL COACH Immunizations Pneumovac : Unknown Influenza : Last year MIGUEL BRICE RN - 04/02/2015 11:09 ELEMENTARY INSTRUCTIONAL COACH Respiratory Airway : Patent Respirations : Unlabored Respiratory Pattern : Regular MIGUEL BRICE RN - 04/02/2015 11:09 ELEMENTARY INSTRUCTIONAL COACH Cardiovascular Heart Rhythm : Regular Skin Color : Normal for ethnicity Skin Description : Dry Skin Temperature : Warm MIGUEL BRICE RN - 04/02/2015 11:09 ELEMENTARY INSTRUCTIONAL COACH Neurological Last Well Time Known : Not applicable Level of Consciousness : Alert Orientation : Oriented x 3 Characteristics of Speech : Appropriate for age Neuro Patient Stated Symptoms : None Gait : Steady Swallowing Difficulty/Aspiration Risk : None MIGUEL BRICE RN - 04/02/2015 11:09 ELEMENTARY INSTRUCTIONAL COACH ED Psychosocial Affect/Behavior : Calm, Cooperative, Appropriate Domestic Abuse Concerns : None Behavioral Health Screen/Safety Assmt : No MIGUEL BRICE RN - 04/02/2015 11:09 ELEMENTARY INSTRUCTIONAL COACH Gastrointestinal Nutrition ED : Adequate MIGUEL BRICE RN - 04/02/2015 11:09 ELEMENTARY INSTRUCTIONAL COACH /OB Assessment Patient Stated Symptoms : None MIGUEL BRICE RN - 04/02/2015 11:09 ELEMENTARY INSTRUCTIONAL COACH Integumentary Integumentary Patient Stated Symptoms : None Skin Turgor : Elastic Skin Integrity : Intact Mucous Membrane Color : [place] Skin Color : Normal for ethnicity Skin Description : Dry MIGUEL BRICE RN - 04/02/2015 11:09 ELEMENTARY INSTRUCTIONAL COACH Musculoskeletal Fall Prevention Education Provided : Yes MIGUEL BRICE RN - 04/02/2015 11:09 ELEMENTARY INSTRUCTIONAL COACH Social Habits Tobacco Use/Currently Using : No Tobacco Use/Last 12 months : No Smoking Status : Former smoker MIGUEL BRICE RN - 04/02/2015 11:09 ELEMENTARY INSTRUCTIONAL COACH Source: [facility] Qello Document Id: [id number] ELEMENTARY INSTRUCTIONAL COACH!88 ENTARY INSTRUCTIONAL COACH documented in this encounter Miscellaneous Notes Miscellaneous - Blanca Palomares R.N. - 04/03/2015 2:24 PM CST Communication Note Communication Note Entered On: 04/03/2015 14:25 ELEMENTARY INSTRUCTIONAL COACH Performed On: 04/03/2015 14:24 ELEMENTARY INSTRUCTIONAL COACH by BLANCA PALOMARES RN Communication Assessment Communication Note : caption writer accessed pt's chart to get the ED MD's note to give to pt's primary care doctor, so patient can have a stress test. BLANCA PALOMARES RN - 04/03/2015 14:24 ELEMENTARY INSTRUCTIONAL COACH Source: [facility] Qello Document Id: [id number] ELEMENTARY INSTRUCTIONAL COACH!3 ENTARY INSTRUCTIONAL COACH Miscellaneous - Conversion, Historical Provider Ser - 04/02/2015 4:10 PM ELEMENTARY INSTRUCTIONAL COACH Stress ECHO From: ALEXIA GUTIERREZ To: [facility]; Sent: 04/02/2015 16:10:36 ELEMENTARY INSTRUCTIONAL COACH Subject: Stress ECHO patient is booked right now in [place] for a Stress Test on 04/16/2015 He wants to know if [facility] could get him in any sooner? Informed Caller that I believe May was the next available - just double checking No need to call patient unless we can get him in sooner in [place] Thank you Source: [facility] POWERCHART Document Id: [id number] Miscellaneous - Toma Floyd R.N. - 04/02/2015 1:29 PM CST Valuables/Belongings Valuables/Belongings Entered On: 04/02/2015 13:29 ELEMENTARY INSTRUCTIONAL COACH Performed On: 04/02/2015 13:29 ELEMENTARY INSTRUCTIONAL COACH by TOMA FLOYD RN Valuables/Belongings Belongings Sent Home With : patient TOMA FLOYD RN - 04/02/2015 13:29 ELEMENTARY INSTRUCTIONAL COACH [facility] Document Id: [id number] ELEMENTARY INSTRUCTIONAL COACH!3 ENTARY INSTRUCTIONAL COACH Miscellaneous - Conversion, Historical Provider Ser - 04/02/2015 12:45 PM ELEMENTARY INSTRUCTIONAL COACH Coding Summary-Paper Based CODING DATE: 04/13/2015 FINAL [facility] STATUS: * Discharged to Home or [...] BE[place] Date Saved: 04/13/2015 11:22 pm Source: [employer] Document Id: [id number] Miscellaneous - Toma Floyd RSwapnilN. - 04/02/2015 11:01 AM CST Facility Charge Ticket 2.0 11.0 DX Facility Charge Ticket 2.0 11.0 DX Entered On: 04/02/2015 13:29 ELEMENTARY INSTRUCTIONAL COACH Performed On: 04/02/2015 11:01 ELEMENTARY INSTRUCTIONAL COACH by TOMA FLOYD RN Facility Charge Ticket [...] Nursing Notes ED Primary Assessment,04/02/15 11:09,MIGUEL BRICE RAND CEMENTER Nurse Reassess,04/02/15 12:31,SHAHIDA SORTO RN [place] Nursing Assessment : Triage and 1-2 nursing assessments [place] Disposition : Discharge Disposition RTF : discharge [place] Total Points with Diagnosis Control : 13 [place] Visit Level : 95058 Level 5 Treatments Prior to Arrival : Aspirin TOMA FLOYD RN - 04/02/2015 13:29 ELEMENTARY INSTRUCTIONAL COACH [facility]: [facility] Document Id: [id number] ELEMENTARY INSTRUCTIONAL COACH!19 ENTARY INSTRUCTIONAL COACH documented in this encounter Plan of Treatment Not on filedocumented as of this encounter Procedures Procedure Name Priority Date/Time Associated Diagnosis Comme nts DX CHEST 1 VIEW Routine 04/02/2015 12:06 PM Resul ts for this ELEMENTARY INSTRUCTIONAL COACH procedure are i n the results section. AUTOMATED Routine 04/02/2015 11:15 AM Results for this DIFFERENTIAL, B ELEMENTARY INSTRUCTIONAL COACH procedure ar e in the results section. CBC WITH Routine 04/02/2015 11:15 AM Results for this DIFFERENTIAL, B ELEMENTARY INSTRUCTIONAL COACH procedure ar e in the results section. TROPONIN T, 5TH Routine 04/02/2015 11:15 AM Resul ts for this GEN, P ELEMENTARY INSTRUCTIONAL COACH procedure are i n the results section. BASIC METABOLIC Routine 04/02/2015 11:15 AM Resul ts for this PANEL, S/P ELEMENTARY INSTRUCTIONAL COACH procedure are i n the results section. documented in this encounter Results DX Chest 1 View (04/02/2015 12:06 PM ELEMENTARY INSTRUCTIONAL COACH) Anatomical Region Laterality Modality Chest N/A Radiographic Imaging Specimen (Source) Anatomical Collection Method Collection Time Re ceived Time Location / / Volume Laterality 04/02/2015 12:06 PM ELEMENTARY INSTRUCTIONAL COACH Impressions 04/02/2015 12:15 PM ELEMENTARY INSTRUCTIONAL COACH No acute portable x-ray findings. Narrative 04/02/2015 12:15 PM ELEMENTARY INSTRUCTIONAL COACH EXAM: XR Chest 1 view portable INDICATION: [...] GING PROCEDURES Automated Differential (04/02/2015 11:15 AM ELEMENTARY INSTRUCTIONAL COACH) P athologist Signature Absolute 5.34 1.70 - POWERCHART Neutrophils 7.00 109L Lymphocytes 1.49 0.90 - POWERCHART 2.90 X109L Monocytes 0.78 0.30 - POWERCHART 0.90 X109L Eosinophils 0.18 0.05 - POWERCHART 0.50 X109L Absolute 0.03 0.00 - POWERCHART Basophil 0.30 X109L Specimen Anatomical Collection Method Collection Time Receive d Time (Source) Location / / Volume Laterality Blood 04/02/2015 11:15 04/02/2015 AM ELEMENTARY INSTRUCTIONAL COACH 11:15 AM ELEMENTARY INSTRUCTIONAL COACH Nate Guzman M.D. LAB BLOOD ADD-ON Performing Organization Address City/State/ZIP Code Phon e Number POWERCHART CBC with Differential (04/02/2015 11:15 AM ELEMENTARY INSTRUCTIONAL COACH) P athologist Signature Leukocytes 7.8 3.5 - 10.5 POWERCHART X109L Erythrocytes 5.13 4.32 - POWERCHART 5.72 P2740F Hemoglobin 15.2 13.5 - POWERCHART 17.5 GDL Hematocrit 45.8 38.8 - POWERCHART 50.0 MCV 89.3 81.2 - POWERCHART 95.1 FL HX RDW 14.2 11.8 - POWERCHART 15.6 Platelet Count 249 150 - 450 POWERCHART X109L HXDifferential? Auto POWERCHART Specimen (Source) Anatomical Collection Method Collection Time Re ceived Time Location / / Volume Laterality Blood 04/02/2015 11:15 AM ELEMENTARY INSTRUCTIONAL COACH Nate Guzman M.D. LAB BLOOD ADD-ON Performing Organization Address City/State/ZIP Code Phon e Number POWERCHART (ABNORMAL) BMP (Basic Metabolic Panel) (04/02/2015 11:15 AM ELEMENTARY INSTRUCTIONAL COACH) Patholo gist Method Time Signature Sodium, S [...] MLMINSA eGFR >60.0 >=60.0 POWERCHART Black/ MLMINSA Moroc[place] Glucose 169 (H) 70 - 140 POWERCHART MGDL Specimen (Source) Anatomical Collection Method Collection Time Re ceived Time Location / / Volume Laterality Blood 04/02/2015 11:15 AM ELEMENTARY INSTRUCTIONAL COACH Nate Guzman M.D. LAB BLOOD ADD-ON Performing Organization Address City/State/ZIP Code Phon e Number POWERCHART Troponin T (04/02/2015 11:15 AM ELEMENTARY INSTRUCTIONAL COACH) P athologist Signature Troponin T, S <0.010 <=0.010 POWERCHART NGML Comment: Values > or = 0.01 ng/mL have b een shown to have prognostic value. Specimen (Source) Anatomical Collection Method Collection Time Re ceived Time Location / / Volume Laterality Blood 04/02/2015 11:15 AM ELEMENTARY INSTRUCTIONAL COACH Nate Guzman M.D. LAB BLOOD ADD-ON Performing Organization Address City/State/ZIP Code Phon e Number POWERCHART documented in this encounter Visit Diagnoses Not on filedocumented in this encounter
--- OUTSIDE RECORDS SUMMARY | 2022-04-01 13:15 | XMS_ITS | Encounter Summary ---
:1940 Author Organization [facility] Address [address] [place] [address] Care Team Providers Name Role Phone Unavailable Primary Care Provider Unavailable Reason for Visit Reason Comments Other Encounter Details Date Type Department Care Team Description 01/16/2008 Telephone [facility], Message Other [address] [place] [address] Social History Tobacco Use Types Packs/Day Years Used Date Smoking Tobacco: Never Assessed Sex Assigned at Date Recorded Not on file documented as of this encounter [facility], Message - 01/16/2008 11:45 AM CDT Phone Note filed by [employer] at 08/28/10510 Author: [employer] Service: (none) Author Type: (none) Filed: 08/28/10510 Note Time: 01/16/08 1145 Status: Signed Commissary Representative: [employer] MESSAGE TO CARE TEAM NAME OF CALLER: [facility] [place] NAME OF CLINICIAN: Dr. Sandra Osman MESSAGE: Following up on a fax sent last week PHARMACY PHONE #: [phone] Androgel 1% gel packets. Need to clarify [...] pt states that his insurance changed to [employer], and they do not cover if he go to [facility]. He will go to different clinic [...] message. Acknowledged by GOYO OSMAN on 4:59pm TERIA WORKER documented in this encounter Plan of Treatment Not on filedocumented as of this encounter Visit Diagnoses Not on filedocumented in this encounter
--- OUTSIDE RECORDS SUMMARY | 2022-04-01 13:15 | XMS_ITS | Encounter Summary ---
:1940 Author Organization [facility] Address [address] [place] [address] Care Team Providers Name Role Phone Unavailable Primary Care Provider Unavailable Reason for Referral Specialty Diagnoses / Procedures Referred By Contact Refer red To Contact [address] [address] Referral ID Status Reason Start Date Expiration Date Visits Requ ested Visits Authorized X RAY NURSE Encounter Details Date Type Department Care Team Description 06/11/2020 Immunization Department of [facility] Freda Kaur Enc ounter For COVID-19 Medicine, [facility] Eloisa Vaccine Immunization [facility] in [address] (Primary Dx) [place] [id number] [place] [phone] [phone] Social History Tobacco Use Types Packs/Day Years [...]
--- OUTSIDE RECORDS SUMMARY | 2022-04-01 13:15 | XMS_ITS | Encounter Summary ---
:1940 Author Organization [facility] Address [address] [place] [address] Care Team Providers Name Role Phone Unavailable Primary Care Provider Unavailable Encounter Details Date Type Department Care Team Description 09/05/2010 PN Conversion Only [facility] [address] [place] [address] [place] [address] [place] [address] [phone] Social History Tobacco Use Types Packs/Day Years Used Date Smoking Tobacco: Never Assessed Sex Assigned at Date Recorded Not on file documented as of this encounter Plan of Treatment Not on filedocumented as of this encounter Visit Diagnoses Not on filedocumented in this encounter
--- OUTSIDE RECORDS SUMMARY | 2022-04-01 13:15 | XMS_ITS | Clinical Summary ---
:1940 Author Organization [facility] Address [address] [place] [address] Care Team Providers Name Role Phone Unavailable Primary Care Provider Unavailable Source Comments Patient records contain information from all sites at [facility]. For routine questions regarding patient records, call [phone] during business hours, M-F 8:00 AM - 5:00 PM Central Time. Record requests for emergency care only can be directed to [phone] at any time.[facility] Immunizations Name Administration Dates Next Due SARS-COV-2 (COVID-19) - PFIZER (12 years 03/17/2021, 021, 06/11/2020 or older) Social History Tobacco Use Types Packs/Day Years Used Date Smoking Tobacco: Former Sex Assigned at Date Recorded Not on file Last Filed Vital Signs Vital Sign Reading Time Taken Comments Blood Pressure 147/83 04/02/2015 12:30 PM GREASE AND TALLOW PUMPER Pulse 58 04/02/2015 12:30 PM GREASE AND TALLOW PUMPER Temperature - - Respiratory Rate 20 04/02/2015 12:30 PM GREASE AND TALLOW PUMPER Oxygen Saturation - - Inhaled Oxygen Concentration [...] e / Group Dates MEDICARE MEDICARE A [id number] 2003-Pre [address] [place] [address] [employer]UE CR[employer] BCBS [place] [id number] 2016-Pres [phone] PO THEA X Cost Share BLUE SHIELD BLUE COST ent [address] [address] [place] [address] [phone] [address] [facility] [address] [place] Munoz [phone]
--- OUTSIDE RECORDS SUMMARY | 2022-04-01 13:15 | XMS_ITS | Encounter Summary ---
:1940 Author Organization [facility] Address [address] [place] [address] Care Team Providers Name Role Phone Unavailable Primary Care Provider Unavailable Encounter Details Date Type Department Care Team Description 12/22/2011 Notes[facility]ders [facility] 6500 Henrique Palacios MD Endoscopy [address] [place] [address] [place] [address] [phone] Social History Tobacco Use Types Packs/Day Years Used Date Smoking Tobacco: Never Assessed Sex Assigned at Date Recorded Not on file documented as of this encounter Plan of Treatment Not on filedocumented as of this encounter Visit Diagnoses Not on filedocumented in this encounter
--- OUTSIDE RECORDS SUMMARY | 2022-04-01 13:15 | XMS_ITS | Encounter Summary ---
:1940 Author Organization [facility] Address [address] [place] [address] Care Team Providers Name Role Phone Unavailable Primary Care Provider Unavailable Reason for Visit Reason Comments Other Encounter Details Date Type Department Care Team Description 01/11/2008 Telephone [facility] [address] [place], Message Other [address] [place], [place] [address] Social History Tobacco Use Types Packs/Day Years Used Date Smoking Tobacco: Never Assessed Sex Assigned at Date Recorded Not on file documented as of this encounter Progress Notes Genny Echeverria - 01/11/2008 8:57 AM CDT Phone Note filed by Genny Echeverria at 08/28/10446 Author: Genny Echeverria Service: (none) Author Type: (none) Filed: 08/28/10446 Note Time: 01/11/08856 Status: Signed Bookkeeper: Imr Conversion Prescription Refill Please provide enough refills to last until patient's next visit. Comment:- lv 04-27-06 fv none Pharmacy Seq #:- [phone] Pharmacy Name:- [facility] [phone] or City:[address] Clinician Name:- Jus Drug Name/Strength:- Androgel 1% (50mg) Gel Pckt Sig: Dose/Route/Freq:- Apply one and one-half packets to skin daily Quantity & Last Fill:- #150 08-29-08 Created on 11Jan2008 8:57am by GENNY LOPEZ On [id number] 9:00am EMILEE CUMMINGS wrote: Refill denial sent to the pharmacy. SPECIALIST documented in this encounter Plan of Treatment Not on filedocumented as of this encounter Visit Diagnoses Not on filedocumented in this encounter
--- OUTSIDE RECORDS SUMMARY | 2022-04-01 13:15 | XMS_ITS | Encounter Summary ---
:1940 Author Organization [facility] Address [address] [place] [address] Care Team Providers Name Role Phone Unavailable Primary Care Provider Unavailable Reason for Visit Reason Comments Other Encounter Details Date Type Department Care Team Description 08/30/2007 Telephone [facility], Message Other [address] [place], [place] [address] Social History Tobacco Use Types Packs/Day Years Used Date Smoking Tobacco: Never Assessed Sex Assigned at Date Recorded Not on file documented as of this encounter [facility], Message - 08/30/2007 1:49 PM CDT Phone Note filed by Kotak Urja at 08/27/101906 Author: Kotak Urja Service: (none) Author Type: (none) Filed: 08/27/101906 Note Time: 08/30/07 1349 Status: Signed Mri Specialist: Kotak Urja MESSAGE TO CARE TEAM NAME OF CALLER:mo daley #[id number] NAME OF CLINICIAN:jonathan MESSAGE:please call pt [phone] doesnt think insur will cover any longer [...] machine. Acknowledged by DALE LANE on 3:35pm ER MANAGEMENT ASSISTANT documented in this encounter Plan of Treatment Not on filedocumented as of this encounter Visit Diagnoses Not on filedocumented in this encounter
--- OUTSIDE RECORDS SUMMARY | 2022-04-01 13:15 | XMS_ITS | Encounter Summary ---
:1940 Author Organization [facility] Address [address] [place] [address] Care Team Providers Name Role Phone Unavailable Primary Care Provider Unavailable Reason for Referral (Routine) - Closed Specialty Diagnoses / Procedures Referred By Contact Refer red To Contact Diagnoses Screen for colon cancer Henrique Palacios MD Procedures Endoscopy, colon, diagnostic [address] [place], [place] [address] Referral ID Status Reason Start Date Expiration Date Visits Requ ested Visits Authorized [id number] Closed 03/24/2017 06/23/2018 1 1 FIC OFFICER Encounter Details Date Type Department Care Team Description 03/23/2017 Notes[facility]ders [facility] 6500 Ebony Hsu MD Screen for colon Gastroenterology [address] cancer (Primary Dx) [address] [place] [address] [id number] [phone] Social History Tobacco Use Types Packs/Day Years [...]
--- OUTSIDE RECORDS SUMMARY | 2022-04-01 13:15 | XMS_ITS | Clinical Summary ---
:1940 Author Organization [facility] Address [address] [place] [address] Care Team Providers Name Role Phone Non [...] for each transition of care or referral. [facility] Allergies No known active allergies Medications Medication [...] open angle glaucoma 04/25/2004 Overview: LW Onset: 08Etz03 ; Glaucoma Open Angle Primary Essential hypertension [...] Comments Blood Pressure 123/78 03/23/2017 1:26 PM EMS MANAGER Pulse 63 03/23/2017 1:26 PM EMS MANAGER Temperature - - Respiratory Rate 16 03/23/2017 1:26 PM EMS MANAGER Oxygen Saturation 100% 03/23/2017 1:26 PM EMS MANAGER Inhaled Oxygen Concentration - - Weight 99.8 [...] Phone Addre ss Type Group MEDICARE MEDICARE [id number] 2002-Presen [id number] Me dicare MANAGED CARE t 63 BCBS BCBS BCBS [place] [id number] 2016-Presen [id number] [address] [address] Medicare BLUE t [address] [place] [id number] Mo Daley Personal/Family Self 1940 [address] (Home) [facility] [phone] [place] [address] Care Teams Downstairs Maid Relationship Specialty Start Date End Date Non Pn, Clinician, PCP - General 06/10/20 [place] [address]
--- OUTSIDE RECORDS SUMMARY | 2022-04-01 13:15 | XMS_ITS | Encounter Summary ---
:1940 Author Organization [facility] Address [address] [place] [address] Care Team Providers Name Role Phone Unavailable Primary Care Provider Unavailable Encounter Details Date Type Department Care Team Description 12/30/2011 Hospital Encounter Specialty Center 650 0 Endoscopy 6500 [facility] [place] [address] Social History Tobacco Use Types Packs/Day Years [...] 12/30/11 1025 Note Time: 12/30/11939 Status: Signed Adventure Guide: Henrique Palacios MD (Physician) Patient Name: Mo [...] and oxygen saturations were monitored continuously. The [id number] colonoscope was introduced through the anus and [...] in 5 years for surveillance. CPT4 Code(s): 98347, Colonoscopy, flexible, proximal to splenic flexure; with biopsy, single or multiple ICD9 Code(s): 211.3, Benign neoplasm of colon 569.0, Anal and rectal polyp V12.72, Personal history of colonic polyps CPT Copyright 2011 [employer]. All Rights Reserved. The codes documented in this report are preliminary and upon electric lift truck driver review may be revised to meet current [...] PATHOLOGY REP ORT HP CONVERSION Pathology #: [id number] ? Date Obtained: 12/30/2011 ?Date Received: 12/30/2011 DIAGNOSIS: Polyps designated cecum/rectum, biopsies- - Tubular adenoma fragments. ?ADOLFO ESPINOZA MD ? (electronic signatur e) ? 12/31/2011 ??13:5 8 CLINICAL NOTES: Follow up polyp ORGAN/TISSUE SITE: Cecum, rectum GROSS DESCRIPTION: The specimen is labeled cecum and consists of 4 [place] mucosal tissue fragments averaging 0.2 cm in greatest dimension. ??Entirel y submitted in cassette [id number]. ? WEYAL MICROSCOPIC DESCRIPTION: Microscopic examination performed. CPT Codes: ?63099 x 1 ? End of Report Specimen [...]
--- OUTSIDE RECORDS SUMMARY | 2022-04-01 13:15 | XMS_ITS | Encounter Summary ---
:1940 Author Organization [facility] Address [address] [place] [address] Care Team Providers Name Role Phone Unavailable Primary Care Provider Unavailable Encounter Details Date Type Department Care Team Description 03/15/2017 Notes/Orders Specialty Center 6500 Anurag Green MD Gastroenterology [address] [place] [address] [place] [address] [phone] Social History Tobacco Use Types Packs/Day Years [...]
--- OUTSIDE RECORDS SUMMARY | 2022-04-01 13:15 | XMS_ITS | Encounter Summary ---
:1940 Author Organization [facility] Address [address] [place] [address] Care Team Providers Name Role Phone Unavailable Primary Care Provider Unavailable Encounter Details Date Type Department Care Team Description 07/02/2020 Immunization Business Service Freda Kaur Encount er For COVID-19 Center in [place] Vaccine Immunization [place] 8[address] [facility] [address] [place] [phone] Social History Tobacco Use Types Packs/Day Years Used Date Smoking Tobacco: Former Sex Assigned at Date Recorded Not on file documented as of this encounter Plan of Treatment Not on filedocumented as of this encounter Visit Diagnoses Diagnosis Encounter For COVID-19 Vaccine Immunizat ion documented in this encounter
--- OUTSIDE RECORDS SUMMARY | 2022-04-01 13:15 | XMS_ITS | Encounter Summary ---
:1940 Author Organization [facility] Address [address] [place] [address] Care Team Providers Name Role Phone Unavailable Primary Care Provider Unavailable Reason for Referral (Routine) - Closed Specialty Diagnoses / Procedures Referred By Contact Refer red To Contact Procedures Henrique Palacios MD Endoscopy, colon, diagnostic [address] [place], [place] [address] Referral ID Status Reason Start Date Expiration Date Visits Requ ested Visits Authorized [id number] Closed 03/23/2017 06/22/2018 1 1 RINTENDENT DIVISION Reason for Visit (Routine) - Closed Specialty Diagnoses / Procedures Referred By Contact Refer red To Contact Procedures Henrique Palacios MD Endoscopy, colon, diagnostic [address] [place], [place] [address] Referral ID Status Reason Start Date Expiration Date Visits Requ ested Visits Authorized [id number] Closed 03/23/2017 06/22/2018 1 1 Encounter Details Date Type Department Care Team Description 03/23/2017 [facility] Henrique Palacios neopl asm of Encounter Gastroenterology MD Ludivina colon, unspecified Endoscopy Procedures [address] part of colon [address] [facility] (Primary [place]x) [place] [address] [facility] [place] [phone] [place] [address] Social History Tobacco Use Types Packs/Day Years Used Date Smoking Tobacco: Former Smokeless Tobacco: Never Comments: Quit smoking: Alcohol Use Standard Drinks/Week Comments Yes 0 (1 standard drink = 0.6 oz pure alcoho l) Sex Assigned at Date Recorded Not on file documented as of this encounter Last Filed Vital Signs Vital Sign Reading Time Taken Comments Blood Pressure 123/78 03/23/2017 1:26 PM SUPERINTENDENT DIVISION Pulse 63 03/23/2017 1:26 PM SUPERINTENDENT DIVISION Temperature - - Respiratory Rate 16 03/23/2017 1:26 PM SUPERINTENDENT DIVISION Oxygen Saturation 100% 03/23/2017 1:26 PM SUPERINTENDENT DIVISION Inhaled Oxygen Concentration - - Weight - [...] Discussed discharge teaching.Patient/family given handouts. Verbalized understanding. RINTENDENT DIV[employer] Destiney Veras RN - 03/23/2017 12:50 PM CST Vitals charted per department protocol.Patient tolerated procedure. Medications given intermittentlyfor pain/discomfort per MD instructions.Oxygen used for the procedure 2-5 liters RINTENDENT DIVISION documented in this encounter Procedure Notes Henrique [...] and oxygen saturations were monitored continuously. The [id number] was introduced through the anus and advanced [...] 3 years. Procedure Code(s): --- Professional --- 57758, Colonoscopy, flexible; with removal of tumor(s), polyp(s), or other lesion(s) by snare technique 97052, 59, Colonoscopy, flexible; with biopsy, single or multiple Diagnosis Code(s): --- Professional --- Z86.010, Personal history of colonic polyps D12.2, Benign neoplasm of ascending colon D12.4, Benign neoplasm of descending colon D12.3, Benign neoplasm of transverse colon (hepatic flexure or splenic flexure) CPT copyright 2016 [employer]. All rights reserved. The codes documented in this report are preliminary and upon field engineer review may be revised to meet current compliance requirements. Henrique Palacios MD 03/23/2017 1:03:21 PM This document has been electronically signed. Number of Addenda: 0 Note Initiated On: 03/23/2017 12:07 PM Endoscopy Report RINTENDENT DIVISION documented in this encounter Plan of Treatment Not on filedocumented as of this encounter Procedures Procedure Name Priority Date/Time Associated Diagnosis Comme nts ENDOSCOPY OBTAINED Routine 03/23/2017 12:58 Benign neoplasm of Results for this ANATOMICAL PATH PM SUPERINTENDENT DIVISION colon, unspecified proced ure are in part of colon the results section. ENDOSCOPY, COLON, Routine 03/23/2017 12:07 Result s for this SCREENING/DIAGNOSTIC PM [employer]PERINTENDENT DIVISION procedu re are in the results section. SURGICAL PATH, PARK Routine 03/23/2017 6:00 AM Re sults for this NICOLLET SUPERINTENDENT DIVISION procedure are i n the results section. documented in this encounter Results Endoscopy Obtained Anatomical Path (03/23/2017 12:58 PM SUPERINTENDENT DIVISION) P athologist Signature Endo Tis Received PN SOFT Specimen Anatomical Collection Method Collection Time Receive d Time (Source) Location / / Volume Laterality 03/23/2017 12:58 03/23/2017 6:44 PM SUPERINTENDENT DIVISION PM [facility] Narrative PN SOFT - 03/23/2017 6:46 PM SUPERINTENDENT DIVISION [place] [address] CLIA number [id number] Henrique Palacios MD LAB_1 Performing Organization Address City/State/ZIP Code Phon e Number PN SOFT [address] [place] [phone] Endoscopy, colon, diagnostic (03/23/2017 12:07 PM SUPERINTENDENT DIVISION) Specimen (Source) Anatomical Collection Method Collection Time Re ceived Time Location / / Volume Laterality 03/23/2017 12:07 PM SUPERINTENDENT DIVISION Narrative GI (PROVATION) - 03/23/2017 12:07 PM SUPERINTENDENT DIVISION Patient Name: Mo Daley Procedure Date: 03/23/2017 [...] turations were monitored ? continuou sly. The [id number] was ? introduce d through the anus [...] Code(s): ?? --- Professional - -- ? 20014, Co lonoscopy, flexible; with ? removal o f tumor(s), polyp(s), or ? other les ion(s) by snare technique ? 68770, 59 , Colonoscopy, flexible; ? with biop sy, single or multiple Diagnosis Code(s): ?? --- Professional - -- ? Z86.010, Personal history of colonic ? polyps ? D12.2, Be nign neoplasm of ascending ? colon ? D12.4, Be nign neoplasm of descending ? colon ? D12.3, Be nign neoplasm of transverse ? colon (he patic flexure or splenic ? flexure) CPT copyright 2016 [employer]. All rights reserved. The codes documented in this report are preliminary and upon field engineer review may be revised to meet current [...] and oxygen saturations were monitored continuously. The [id number] was introduced through the anus and advanced [...] 3 years. Procedure Code(s): --- Professional --- 07178, Colonoscopy, flexible; with removal of tumor(s), polyp(s), or other lesion(s) by snare technique 88644, 59, Colonoscopy, flexible; with biopsy, single or multiple Diagnosis Code(s): --- Professional --- Z86.010, Personal history of colonic polyps D12.2, Benign neoplasm of ascending colon D12.4, Benign neoplasm of descending colon D12.3, Benign neoplasm of transverse colon (hepatic flexure or splenic flexure) CPT copyright 2016 [employer]. All rights reserved. The codes documented in this report are preliminary and upon field engineer review may be revised to meet current compliance requirements. Henrique Palacios MD 03/23/2017 1:03:21 PM This document has been electronically si gned. Number of Addenda: 0 Note Initiated On: 03/23/2017 12:07 PM Endoscopy Report Henrique Palacios MD PN GI PROCEDURE ORDERABLES Performing Organization Address City/State/ZIP Code Phon e Number GI (PROVATION) GI (PROVATION) [place], [place] Pathology Report (03/23/2017 6:00 AM SUPERINTENDENT DIVISION) [facility] Method Time Signature Path: FINAL SURGICAL PATHOLOGY REPORT PN SOFT Pathology #: [id number] ?Date Obtained: 03/23/2017 ? Date Received: 03/23/2017 [...] microscopic examination has been performed. Performed at [facility], [address] [place] [address] Specimen Anatomical Collection Method Collection Time Receive d Time (Source) Location / / Volume Laterality COLON STRUCTURE / 03/23/2017 6:00 AM 03/10 6:00 Unknown SUPERINTENDENT DIVISION AM SUPERINT[facility]ENT DIVISION Henrique Palacios MD LAB_1 Performing Organization Address City/State/ZIP Code Phon e Number [place] [phone] [place] [address] documented in this encounter Visit Diagnoses Diagnosis Benign neoplasm of colon, unspecified pa rt of colon - Primary documented in this encounter Administered Medications Inactive Administered Medications - up to 3 most recent administrations Medication Order MAR Action Action Date Dose Rate Site fentaNYL (SUBLIMAZE) injection Given 03/23/2017 12:49 PM SUPERINTENDENT DIVISION 75 mcg 25-100 mcg 25-100 mcg, Intravenous, PRN, Other, Moderate Sedation, Starting on Wed03/23/17 at 1232, Until Wed04/13/17 at 0206, Administer in 25-100 mcg increments as directed by endoscopy procedure MD up to a total of 300 mcg. midazolam (VERSED) injection 0.5-2 mg Given 03/23/2017 12:49 PM SUPERINTENDENT DIVISION 1.5 mg 0.5-2 mg, Intravenous, PRN, Sedation, Starting on Wed03/23/17 at 1232, Until Wed04/13/17 at 0206, Administer in 0.5-2 mg increments as directed by endoscopy procedure MD up to a total of 8 mg. sodium chloride 0.9% injection 10-60 mL Given 03/23/2017 12:49 PM SUPERINTENDENT DIVISION 10 mL 10-60 mL, Intravenous, PRN, Line Patency, Line Care, Starting on Wed03/23/17 at 1232, Until Wed04/13/17 at 0206 documented in this encounter
--- OUTSIDE RECORDS SUMMARY | 2022-04-01 13:15 | XMS_ITS | Encounter Summary ---
:1940 Author Organization [facility] Address [address] [place] [address] Care Team Providers Name Role Phone Unavailable Primary Care Provider Unavailable Reason for Visit Reason Comments Other Encounter Details Date Type Department Care Team Description 01/11/2008 Telephone [facility], Message Other [address] [place], [place] [address] Social History Tobacco Use Types Packs/Day Years Used Date Smoking Tobacco: Never Assessed Sex Assigned at Date Recorded Not on file documented as of this encounter [facility], Message - 01/11/2008 10:21 AM CDT Phone Note filed by emoquo at 08/28/10447 Author: emoquo Service: (none) Author Type: (none) Filed: 08/28/10447 Note Time: 01/11/08 1021 Status: Signed Kosher Sealer: emoquo Medication Issue/Refill Caller Name/Relationship:Mo Primary Planisher:Tanisha Comment/Symptom:pt states he needs a refill Pharmacy Name & Phone #:[facility] [phone] [place] City:[place] Drug Name:testosterone Strength:1% Dose/Route/Freq:1 package every other day Acid Correction Hand:pt Best call back number:[phone] Is it OK to leave a confidential [...] Luu and was denied. Please advise/address.Thanks. On [id number] 9:40am SANDRA OSMAN Yonas wrote: GOYO CALL HIM. I REFILL FOR 1 MONTH. RX ON PRINTER. HE IS DUE FOR FOLLOW UP VISIT WITH ME. I WILL NOT FURTHER REFILL HIS MEDS UNLESS HE COMES IN. Acknowledged by SANDRA OSMAN on ep 9:40am On 12Jan2008 12:05pm GOYO OSMAN wrote: Pt called and left above message on voice mail, #[phone] given to call back if have question, Rx faxed to [facility]. Acknowledged by GOYO OSMAN on 12:05pm H REELER documented in this encounter Plan of Treatment Not on filedocumented as of this encounter Visit Diagnoses Not on filedocumented in this encounter
--- OUTSIDE RECORDS SUMMARY | 2022-04-01 13:15 | XMS_ITS | Encounter Summary ---
:1940 Author Organization [facility] Address [address] [place] [address] Care Team Providers Name Role Phone Unavailable Primary Care Provider Unavailable Reason for Referral Specialty Diagnoses / Procedures Referred By Contact Refer red To Contact Sugar Soler M.D. [facility] Region [address] [place] [address] Referral ID Status Reason Start Date Expiration Date Visits Requ ested Visits Authorized Encounter Details Date Type Department Care Team Description 02/03/2021 Orders Only [facility] PCP [facility] MNT Richie Sheikh D.O. [address] [place] [place] [address] (Wo rk) Social History Tobacco [...]
--- OUTSIDE RECORDS SUMMARY | 2022-04-01 13:16 | XMS_ITS | Encounter Summary ---
:1940 Author Organization [facility] Address [address] [place] [address] Care Team Providers Name Role Phone Unavailable Primary Care Provider Unavailable Reason for Visit Reason Comments Other Encounter Details Date Type Department Care Team Description 09/04/2005 Telephone [facility] Sandra Osman MD Other Medicine [address] [facility] [address] [place] [address] [place], [place] [address] [phone] Social History Tobacco Use Types Packs/Day Years Used Date Smoking Tobacco: Never Assessed Sex Assigned at Date Recorded Not on file documented as of this encounter Progress Notes [employer], Message - 09/04/2005 3:19 PM CDT Phone Note filed by Dat[employer] at 08/26/10 032 Author: [employer] Service: (none) Author Type: (none) Filed: 08/26/10 0325 Note Time: 09/04/051518 Status: Signed Supervisor Advertising Dispatch Clerks: Message [employer] Hi! please see on-line vital sign flowsheet for today's blood pressure readings. thanx! Created on 04Sep2005 3:19pm by KAREN DUNN Acknowledged by SANDRA OSMAN on 3:23pm ING MACHINE OPERATOR documented in this encounter Plan of Treatment Not on filedocumented as of this encounter Visit Diagnoses Not on filedocumented in this encounter
--- OUTSIDE RECORDS SUMMARY | 2022-04-01 13:16 | XMS_ITS | Encounter Summary ---
:1940 Author Organization [facility] Address [address] [place] [address] Care Team Providers Name Role Phone Unavailable Primary Care Provider Unavailable Encounter Details Date Type Department Care Team Description 10/02/2005 Nursing Visit [facility] Juan Antonio, Caleb martínez MD Medicine [address] [address] [facility] [address] [place] [address] [place], [place] [phone] (Wo rk) Social History Tobacco Use Types Packs/Day Years Used Date Smoking Tobacco: Never Assessed Sex Assigned at Date Recorded Not on file documented as of this encounter Plan of Treatment Not on filedocumented as of this encounter Visit Diagnoses Not on filedocumented in this encounter
--- OUTSIDE RECORDS SUMMARY | 2022-04-01 13:16 | XMS_ITS | Encounter Summary ---
:1940 Author Organization [facility] Address [address] [place] [address] Care Team Providers Name Role Phone Unavailable Primary Care Provider Unavailable Encounter Details Date Type Department Care Team Description 09/22/2005 PN Conversion Only [facility] CONVERSION Rashid Luu MD [address] [place] [address] (Wo rk) Social History Tobacco [...] Results ALT (SGPT) (09/22/2005 2:27 PM CDT) [facility] gist Method Time Signature Alanine 40 [...] (09/22/2005 2:27 PM CDT) [facility] Test[facility] 374 225 - 825 HP CONVERSION Level ng/dL Specimen (Source) Anatomical Collection Method Collection Time Re ceived Time Location / / Volume Laterality 09/22/2005 2:27 PM CDT Rashid Luu MD LAB_1 Performing Organization Address City/[facility]/ZIP Code Phon e Number HP CONVERSION Free [...]
--- OUTSIDE RECORDS SUMMARY | 2022-04-01 13:16 | XMS_ITS | Encounter Summary ---
:1940 Author Organization [facility] Address [address] [place] [address] Care Team Providers Name Role Phone Unavailable Primary Care Provider Unavailable Encounter Details Date Type Department Care Team Description 09/04/2005 Nursing Visit [facility] Yazan Garay MD [facility] [address] [facility] [address] [place] [address] [place] [address] [phone] Social History Tobacco Use Types Packs/Day Years [...]
--- OUTSIDE RECORDS SUMMARY | 2022-04-01 13:16 | XMS_ITS | Encounter Summary ---
:1940 Author Organization [facility] Address [address] [place] [address] Care Team Providers Name Role Phone Unavailable Primary Care Provider Unavailable Reason for Visit Reason Comments Other Encounter Details Date Type Department Care Team Description 08/10/2005 Telephone [facility], Message Other [address] [place], [place] [id number] Social History Tobacco Use Types Packs/Day Years Used Date Smoking Tobacco: Never Assessed Sex Assigned at Date Recorded Not on file documented as of this encounter Progress Notes Genny Smith - 08/10/2005 8:37 AM CDT Phone Note filed by Genny Smith RN at 08/26/10222 Author: Genny Smith RN Service: (none) Author Type: (none) Filed: 08/26/10222 Note Time: 08/10/05836 Status: Signed Production Hardener: Imr Conversion MESSAGE TO CARE TEAM NAME [...] NAME: PHARMACY PHONE #: CALL BACK PHONE #:[phone],h BEST TIME TO CALL BACK: Is it [...] seen. Acknowledged by SALLY ROSE on 9:24am CE AUTOMATION TECHNICIAN documented in this encounter Plan of Treatment Not on filedocumented as of this encounter Visit Diagnoses Not on filedocumented in this encounter
--- OUTSIDE RECORDS SUMMARY | 2022-04-01 13:16 | XMS_ITS | Encounter Summary ---
:1940 Author Organization [facility] Address [address] [place] [address] Care Team Providers Name Role Phone Unavailable Primary Care Provider Unavailable Reason for Visit Reason Comments Other Encounter Details Date Type Department Care Team Description 08/30/2007 Telephone [facility] [address], Message Other [address] [place], [place] [address] Social History Tobacco Use Types Packs/Day Years Used Date Smoking Tobacco: Never Assessed Sex Assigned at Date Recorded Not on file documented as of this encounter [facility], Message - 08/30/2007 1:31 PM CDT Phone Note filed by Jack On Block at 08/27/101906 Author: Jack On Block Service: (none) Author Type: (none) Filed: 08/27/101906 Note Time: 08/30/07 1331 Status: Signed Associate Material Handler: Jack On Block Prescription Refill Please provide enough refills to last until patient's next visit. Comment:- lv-01/18/06 fv-none Pharmacy Seq #:- [phone] Pharmacy Name:- [facility] [phone] or City:- [address] Clinician Name:- Jus Drug Name/Strength:- Androgel [...] EMILEE CUMMINGS wrote: Done. Appt reminder sent. ING AID MECHANIC documented in this encounter Plan of Treatment Not on filedocumented as of this encounter Visit Diagnoses Not on filedocumented in this encounter
--- OUTSIDE RECORDS SUMMARY | 2022-04-01 13:16 | XMS_ITS | Encounter Summary ---
:1940 Author Organization [facility] Address [address] [place] [address] Care Team Providers Name Role Phone Unavailable Primary Care Provider Unavailable Reason for Visit Reason Comments Other Encounter Details Date Type Department Care Team Description 12/14/2006 Telephone [facility] [address] Stacy Lofton RN Other Gastroenterology [address] [facility]. [place], [place] [address] Social History Tobacco Use Types Packs/Day Years Used Date Smoking Tobacco: Never Assessed Sex Assigned at Date Recorded Not on file documented as of this encounter Progress Notes Stacy Lofton RN - 12/14/2006 10:20 AM CDT Phone Note filed by Stacy Lofton RN at 08/27/10133 Author: Stacy Lofton RN Service: (none) Author Type: Registered Nurse Filed: 08/27/10133 Note Time: 12/14/06 1020 Status: Signed Automotive Tire Technician: Stacy Lofton RN (Registered Nurse) LM on ans.machine asking pt to call for PPA Created on 14Dec2006 10:20am by STACY LOFTON PUSHER documented in this encounter Plan of Treatment Not on filedocumented as of this encounter Visit Diagnoses Not on filedocumented in this encounter
--- OUTSIDE RECORDS SUMMARY | 2022-04-01 13:16 | XMS_ITS | Encounter Summary ---
:1940 Author Organization [facility] Address [address] [place] [address] Care Team Providers Name Role Phone Unavailable Primary Care Provider Unavailable Reason for Visit Reason Comments Other Encounter Details Date Type Department Care Team Description 04/22/2006 Telephone [facility], Message Other [address] [place], [place] [address] Social History Tobacco Use Types Packs/Day Years Used Date Smoking Tobacco: Never Assessed Sex Assigned at Date Recorded Not on file documented as of this encounter Progress Notes Lissette Lentz - 04/22/2006 9:11 AM CST Phone Note filed by Lissette Lentz RN at 08/26/101212 Author: Lissette Lentz RN Service: (none) Author Type: Registered Nurse Filed: 08/26/101212 Note Time: 04/22/06 0911 Status: Signed Gripper Machine Operator: Lissette Lentz RN (Registered Nurse) Grant has BC/BS insurance. Viagra isn't covered. He call his Ins. and they told him to call for something else, but didn't tell him what is covered. Uses our pharmacy. Call him at:[phone]...message ok. Created on 22Apr2006 9:11am by LISSETTE LENTZ R On 22Apr2006 9:57am SANDRA OSMAN wrote: TRY CIALIS. SEE RX Acknowledged by OSMANSANDRA ARREOLA on 9:57am On 22Apr2006 10:38am YAZMIN TRAYLOR wrote: rx faxed to our pharmacy. patient called message left advising of above. Acknowledged by YAZMIN TRAYLOR on 10:38am SITTING documented in this encounter Plan of Treatment Not on filedocumented as of this encounter Visit Diagnoses Not on filedocumented in this encounter
--- OUTSIDE RECORDS SUMMARY | 2022-04-01 13:16 | XMS_ITS | Encounter Summary ---
:1940 Author Organization [facility] Address [address] [place] [address] Care Team Providers Name Role Phone Unavailable Primary Care Provider Unavailable Encounter Details Date Type Department Care Team Description 01/07/2006 PN Conversion Only GNOSTICISM CONVERSION Rashid Luu MD [address] [place] [address] (Wo rk) Social History Tobacco [...]
--- OUTSIDE RECORDS SUMMARY | 2022-04-01 13:16 | XMS_ITS | Encounter Summary ---
:1940 Author Organization [facility] Address [address] [place] [address] Care Team Providers Name Role Phone Unavailable Primary Care Provider Unavailable Encounter Details Date Type Department Care Team Description 08/03/2005 PN Conversion Only [place]OST[place] [address] [place], [place] [address] (Wo rk) Social History Tobacco Use Types Packs/Day Years Used Date Smoking Tobacco: Never Assessed Sex Assigned at Date Recorded Not on file documented as of this encounter Plan of Treatment Not on filedocumented as of this encounter Procedures Procedure Name Priority Date/Time Associated Comments Diagnosis HIV ANTIBODY Routine 08/03/2005 10:55 Results for this AM FLUID DYNAMICIST procedure are i n the results section. GLUCOSE Routine 08/03/2005 10:55 Results for this AM FLUID DYNAMICIST procedure are i n the results section. THYROID STIMULATING Routine 08/03/2005 10:55 Resu lts for this HORMONE AM FLUID DYNAMICIST procedure are i n the results section. LIPID PANEL AND Routine 08/03/2005 10:55 Results for this DIRECT LDL(IF NEEDED) AM FLUID DYNAMICIST proced ure are in the results section. CREATININE / GFR Routine 08/03/2005 10:55 Results for this AM FLUID DYNAMICIST procedure are i n the results section. COMPLETE BLOOD Routine 08/03/2005 10:55 Results f or this COUNT-W/DIFF AM FLUID DYNAMICIST procedure are i n the results section. PROSTATIC SPECIFIC Routine 08/03/2005 10:55 Resul ts for this ANTIGEN(SCREEN) AM FLUID DYNAMICIST procedure ar e in the results section. HGB A1C Routine 08/03/2005 10:55 Results for this AM FLUID DYNAMICIST procedure are i n the results section. ALT (SGPT) Routine 08/03/2005 10:55 Results for this AM FLUID DYNAMICIST procedure are i n the results section. POTASSIUM Routine 08/03/2005 10:55 Results for this AM FLUID DYNAMICIST procedure are i n the results section. URINALYSIS COMPLETE Routine 08/03/2005 10:47 Resu lts for this AM FLUID DYNAMICIST procedure are i n the results section. documented in this encounter Results (ABNORMAL) Complete Blood Count-W/Diff (08/03/2005 10:55 AM FLUID DYNAMICIST) [facility] Method Time Signature White Blood Cell [...] - HP CONVERSION Hemoglobin Conc 36.5 gm/dL [place] RDW 13.5 11.0 - HP CONVERSION 15.0 [...] / / Volume Laterality 08/03/2005 10:55 AM FLUID DYNAMICIST Yazan Garay MD LAB_1 Performing Organization Address City/State/ZIP Code Phon e Number HP CONVERSION ALT (SGPT) (08/03/2005 10:55 AM FLUID DYNAMICIST) [facility] Method Time Signature Alanine 65 0 - 65 HP CONVERSION Aminotransferase U/L Specimen (Source) Anatomical Collection Method Collection Time Re ceived Time Location / / Volume Laterality 08/03/2005 10:55 AM FLUID DYNAMICIST Yazan Branham Tanisha LEE LAB_1 Performing Organization Address City/[facility] Code Phon e Number HP CONVERSION Creatinine / GFR (08/03/2005 10:55 AM FLUID DYNAMICIST) athologist Signature Creatinine 1.0 0.5 - 1.5 HP CONVERSION Serum mg/dL Specimen (Source) Anatomical Collection Method Collection Time Re ceived Time Location / / Volume Laterality 08/03/2005 10:55 AM FLUID DYNAMICIST Yazan Branham Tanisha LEE LAB_1 Performing Organization Address [facility] Phon e Number HP CONVERSION (ABNORMAL) Glucose (08/03/2005 10:55 AM FLUID DYNAMICIST) athologist Signature Lab Glucose 113 (H) 60 - 100 HP CONVERSION mg/dL Specimen (Source) Anatomical Collection Method Collection Time Re ceived Time Location / / Volume Laterality 08/03/2005 10:55 AM FLUID DYNAMICIST Yazan Branham Tanisha LEE LAB_1 Performing Organization Address [facility] Phon e Number HP CONVERSION Potassium (08/03/2005 10:55 AM FLUID DYNAMICIST) athologist Signature Potassium 4.6 3.5 - 5.2 HP CONVERSION meq/L Specimen (Source) Anatomical Collection Method Collection Time Re ceived Time Location / / Volume Laterality 08/03/2005 10:55 AM FLUID DYNAMICIST Yazan Branham Tanisha LEE LAB_1 Performing Organization Address [facility] Code Phon e Number HP CONVERSION (ABNORMAL) Lipid Panel and Direct LDL(If Needed) (08/03/2005 10:55 AM FLUID DYNAMICIST) [facility] gist Method Time Signature Cholesterol/HDL 4.7 [...] / / Volume Laterality 08/03/2005 10:55 AM FLUID DYNAMICIST Yazan Branham Tanisha LEE LAB_1 Performing Organization Address City/[facility] Code Phon e Number HP CONVERSION (ABNORMAL) Hgb A1c (08/03/2005 10:55 AM FLUID DYNAMICIST) athologist Signature HGB A1C 6.3 (H) <6.0 % HP CONVERSION Specimen (Source) Anatomical Collection Method Collection Time Re ceived Time Location / / Volume Laterality 08/03/2005 10:55 AM FLUID DYNAMICIST Yazan Branham Tanisha LEE LAB_1 Performing Organization Address City/[facility]/ZIP Code Phon e Number HP CONVERSION Prostatic Specific Antigen (Screen) (08/03/2005 10:55 AM FLUID DYNAMICIST) athologist Signature Prostate 1.1 0.0 - 4.0 HP CONVERSION Specific ng/mL Antigen Specimen (Source) Anatomical Collection Method Collection Time Re ceived Time Location / / Volume Laterality 08/03/2005 10:55 AM FLUID DYNAMICIST Yazan Branham Tanisha LEE LAB_1 Performing Organization Address [facility] Code Phon e Number HP CONVERSION Thyroid Stimulating Hormone (08/03/2005 10:55 AM FLUID DYNAMICIST) athologist Signature Thyroid 0.97 0.20 - HP CONVERSION Stimulating 4.50 Hormone uIU/mL Specimen (Source) Anatomical Collection Method Collection Time Re ceived Time Location / / Volume Laterality 08/03/2005 10:55 AM FLUID DYNAMICIST Yazan Branham Tanisha LEE LAB_1 Performing Organization Address City/[facility]/ZIP Code Phon e Number HP CONVERSION HIV Antibody (08/03/2005 10:55 AM FLUID DYNAMICIST) athologist Signature HIV 1/HIV 2 Non Reac Non Reac HP CONVERSION Specimen (Source) Anatomical Collection Method Collection Time Re ceived Time Location / / Volume Laterality 08/03/2005 10:55 AM FLUID DYNAMICIST Yazan Branham Tanisha LEE LAB_1 Performing Organization Address City/State/ZIP Code Phon e Number HP CONVERSION (ABNORMAL) Urinalysis Complete (08/03/2005 10:47 AM FLUID DYNAMICIST) [facility] Method Time Signature Glucose, Negative Neg-Trac HP CONVERSION Qualitative U Protein Urine Negative Neg-Trac HP CONVERSION Ketones Negative Negative HP CONVERSION U BILI Negative Negative HP CONVERSION U Specific 1.015 1.005 - 25 HP CONVERSION [place] Blood Urine Trace (A) Negative HP CONVERSION [...] / / Volume Laterality 08/03/2005 10:47 AM FLUID DYNAMICIST Yazan Yonas Tanisha LEE LAB_1 Performing Organization Address City/State/ZIP Code Phon e Number HP CONVERSION documented in this encounter Visit Diagnoses Not on filedocumented in this encounter
--- OUTSIDE RECORDS SUMMARY | 2022-04-01 13:16 | XMS_ITS | Encounter Summary ---
:1940 Author Organization [facility] Address [address] [place] [address] Care Team Providers Name Role Phone Unavailable Primary Care Provider Unavailable Encounter Details Date Type Department Care Team Description 11/01/2006 PN Conversion Only [place] [address] [place], [place] [address] (Wo rk) Social History [...] Complete Blood Count-W/Diff (11/01/2006 11:19 AM CDT) [facility] Method Time Signature White Blood Cell 8.3 [...] - HP CONVERSION Hemoglobin Conc 36.5 gm/dL [place] RDW 12.6 11.0 - HP CONVERSION 15.0 [...] CONVERSION ALT (SGPT) (11/01/2006 11:19 AM CDT) [facility] Method Time Signature Alanine 30 4 - [...] Branham Tanisha LEE LAB_1 Performing Organization Address City/[facility] Code Phon e Number HP CONVERSION Creatinine / GFR (11/01/2006 11:19 AM CDT) athologist Signature Creatinine 1.0 0.4 - 1.3 HP CONVERSION Serum mg/dL Specimen (Source) Anatomical Collection Method Collection Time Re ceived Time Location / / Volume Laterality 11/01/2006 11:19 AM CDT Yazan Branham Tanisha LEE LAB_1 Performing Organization Address City/[facility] Phon e Number HP CONVERSION (ABNORMAL) Glucose (11/01/2006 11:19 AM CDT) athologist Signature Length Of Fast 12.0 Hours HP CONVERSION Lab Glucose 119 (H) 60 - 100 HP CONVERSION mg/dL Specimen (Source) Anatomical Collection Method Collection Time Re ceived Time Location / / Volume Laterality 11/01/2006 11:19 AM CDT Yazan Branham Tanisha LEE LAB_1 Performing Organization Address [facility] Phon e Number HP CONVERSION (ABNORMAL) [...] Branham Tanisha LEE LAB_1 Performing Organization Address City/[facility] Code Phon e Number HP CONVERSION (ABNORMAL) Lipid Panel and Direct LDL(If Needed) (11/01/2006 11:19 AM CDT) [facility] gist Method Time Signature Length Of [...] Routine(Micro If Pos) (11/01/2006 11:19 AM CDT) [facility] [employer] Method Time Signature Turbidity Clear No normal [...] Specific 1.015 1.005 - 25 HP CONVERSION [place] Specimen (Source) Anatomical Collection Method Collection Time [...]
--- OUTSIDE RECORDS SUMMARY | 2022-04-01 13:16 | XMS_ITS | Encounter Summary ---
:1940 Author Organization [facility] Address [address] [place] [address] Care Team Providers Name Role Phone Unavailable Primary Care Provider Unavailable Reason for Visit Reason Comments Other Encounter Details Date Type Department Care Team Description 03/24/2006 Telephone CONV [id number] [facility], Message Other [address] [place] [address] Social History Tobacco Use Types Packs/Day Years Used Date Smoking Tobacco: Never Assessed Sex Assigned at Date Recorded Not on file documented as of this encounter Progress Notes [employer], Message - 03/24/2006 11:00 AM CST Phone Note filed by Webcrumbz at 08/26/10 1047 Author: Web[employer] Service: (none) Author Type: (none) Filed: 08/26/10 1047 Note Time: 03/24/06 1100 Status: Signed Project Administrative Assistant: [employer] GI dept mailed letter reminding pt to schedule f/u colonoscopy due in Jun 2006. Created on 24Mar2006 11:00am by MIKE MARTINEZ TANK ASSAULT GUNNER documented in this encounter Plan of Treatment Not on filedocumented as of this encounter Visit Diagnoses Not on filedocumented in this encounter
--- OUTSIDE RECORDS SUMMARY | 2022-04-01 13:16 | XMS_ITS | Encounter Summary ---
:1940 Author Organization [facility] Address [address] [place] [address] Care Team Providers Name Role Phone Unavailable Primary Care Provider Unavailable Encounter Details Date Type Department Care Team Description 01/18/[address] [facility] [address] Rashid Luu MD Endocrinology [address] [facility] [address] [place] [address] [place], [place] [id number] [phone] Social History Tobacco Use Types Packs/Day Years [...] signed by Rashid Luu MD at 01/29/06 5216 Author: Rashid Luu MD Service: (none) Author Type: Physician Filed: 08/29/10 1409 Note Time: 01/18/06 0001 Status: Signed It Specialist: Rashid Luu MD (Physician) NAME: ALEXANDR SOTELO MR: [id number] ACCT: [id number] VISIT: [id number] DICTATING CLINICIAN: Bryn LUU MD JOB: [id number] LOC: 432 CLINIC PROGRESS NOTE DATE OF [...] by his family doctor. CC: Son BeccaMD CD:[id number] C: 01/18/06 14:32 DOCUMENT: [id number] documented in this encounter Plan of Treatment Not on filedocumented as of this encounter Visit Diagnoses Not on filedocumented in this encounter
--- OUTSIDE RECORDS SUMMARY | 2022-04-01 13:16 | XMS_ITS | Encounter Summary ---
:1940 Author Organization [facility] Address [address] [place] [address] Care Team Providers Name Role Phone Unavailable Primary Care Provider Unavailable Encounter Details Date Type Department Care Team Description 04/20/2006 PN Conversion Only RESTORATIONISM CONVERSION Rashid Luu MD [address] [place] [address] (Wo rk) Social History Tobacco Use Types Packs/Day Years Used Date Smoking Tobacco: Never Assessed Sex Assigned at Date Recorded Not on file documented as of this encounter Plan of Treatment Not on filedocumented as of this encounter Procedures Procedure Name Priority Date/Time Associated Comments Diagnosis TESTOSTERONE TOTAL Routine 04/20/2006 10:38 Resul ts for this ADULT MALES AM PRESS CUTTER procedure are i n the results section. GLUCOSE Routine 04/20/2006 10:38 Results for this AM PRESS CUTTER procedure are i n the results section. COMPLETE BLOOD Routine 04/20/2006 10:38 Results f or this COUNT-W/DIFF AM PRESS CUTTER procedure are i n the results section. PROSTATIC SPECIFIC Routine 04/20/2006 10:38 Resul ts for this ANTIGEN(SCREEN) AM PRESS CUTTER procedure ar e in the results section. HGB A1C Routine 04/20/2006 10:38 Results for this AM PRESS CUTTER procedure are i n the results section. documented in this encounter Results (ABNORMAL) Complete Blood Count-W/Diff (04/20/2006 10:38 AM PRESS CUTTER) [facility] Method Time Signature White Blood Cell 7.4 [...] - HP CONVERSION Hemoglobin Conc 36.5 gm/dL [place] RDW 12.9 11.0 - HP CONVERSION 15.0 [...] / / Volume Laterality 04/20/2006 10:38 AM PRESS CUTTER C Siena Luu MD LAB_1 Performing Organization Address City/[facility]/ZIP Code Phon e Number HP CONVERSION (ABNORMAL) Glucose (04/20/2006 10:38 AM PRESS CUTTER) athologist Signature Lab Glucose 109 (H) 60 - 100 HP CONVERSION mg/dL Specimen (Source) Anatomical Collection Method Collection Time Re ceived Time Location / / Volume Laterality 04/20/2006 10:38 AM PRESS CUTTER C Siena Luu MD LAB_1 Performing Organization Address City/State/ZIP Code Phon e Number HP CONVERSION Prostatic Specific Antigen (Screen) (04/20/2006 10:38 AM PRESS CUTTER) athologist Signature Prostate 1.1 0.0 - 4.0 HP CONVERSION Specific ng/mL Antigen Specimen (Source) Anatomical Collection Method Collection Time Re ceived Time Location / / Volume Laterality 04/20/2006 10:38 AM PRESS CUTTER C Siena Luu MD LAB_1 Performing Organization Address City/State/ZIP Code Phon e Number HP CONVERSION (ABNORMAL) Hgb A1c (04/20/2006 10:38 AM PRESS CUTTER) P athologist Signature HGB A1C 6.2 (H) <6.0 % HP CONVERSION Specimen (Source) Anatomical Collection Method Collection Time Re ceived Time Location / / Volume Laterality 04/20/2006 10:38 AM PRESS CUTTER C Siena Luu MD LAB_1 Performing Organization Address City/[facility] Code Phon e Number HP CONVERSION Testosterone, Total Adult Males (04/20/2006 10:38 AM PRESS CUTTER) Analysis Performed At Patho logist Time Signature Testosterone 632 530 - 823 HP CONVERSION Level ng/dL Specimen (Source) Anatomical Collection Method Collection Time Re ceived Time Location / / Volume Laterality 04/20/2006 10:38 AM PRESS CUTTER C Siena Luu MD LAB_1 Performing Organization Address City/State/ZIP Code Phon e Number HP CONVERSION documented in this encounter Visit Diagnoses Not on filedocumented in this encounter
--- OUTSIDE RECORDS SUMMARY | 2022-04-01 13:16 | XMS_ITS | Encounter Summary ---
:1940 Author Organization [facility] Address [address] [place] [address] Care Team Providers Name Role Phone Unavailable Primary Care Provider Unavailable Reason for Visit Reason Comments Other Encounter Details Date Type Department Care Team Description 04/20/2006 Telephone [facility], Message Other [address] [place], [place] [address] Social History Tobacco Use Types Packs/Day Years Used Date Smoking Tobacco: Never Assessed Sex Assigned at Date Recorded Not on file documented as of this encounter Progress Notes Sandra Osman MD - 04/20/2006 3:02 PM CST Phone Note filed by Sandra Osman MD at 08/26/10 644 Author: Sandra Osman MD Service: (none) Author Type: Physician Filed: 08/26/101207 Note Time: 04/20/06 1502 Status: Signed Miner Pick: Sandra Osman MD (Physician) YAZMIN CALL HIM. [...] above. Acknowledged by YAZMIN TRAYLOR on 4:36pm TEGY INTERN documented in this encounter Plan of Treatment Not on filedocumented as of this encounter Visit Diagnoses Not on filedocumented in this encounter
--- OUTSIDE RECORDS SUMMARY | 2022-04-01 13:16 | XMS_ITS | Encounter Summary ---
:1940 Author [facility] Address [address] [place] [address] Care Team Providers Name Role Phone Unavailable Primary Care Provider Unavailable Encounter Details Date Type Department Care Team Description 11/01/2006 Office Visit [facility] Sandra Garay MD [facility] [address] [facility] [address] [place] [address] [place], [place] [address] [phone] Social History Tobacco Use Types Packs/Day Years [...] 08/29/102000 Note Time: 11/01/06 0001 Status: Signed Underground Miner: Sandra Garay MD (Physician) NAME: ALEXANDR SOTELO MR#: [id number] ACCT: [id number] VISIT: [id number] DICTATING CLINICIAN: SANDRA Yonas MD JACQUI JOB: [id number] LOC: 506 CLINIC PROGRESS NOTE DATE OF [...] LastWord. 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 He quit smoking in [...] concerned with a lesion on his right zoroastrian which looks like a seborrheic keratosis. No [...] tendon reflexes symmetrical. Both his toes downgoing. Ipmrei-eu-sbcn symmetric. Romberg stable. Gait steady. ASSESSMENT: Complete [...] pressure at home continues to run high. SHN:[id number] C: 11/02/06 10:18 DOCUMENT: [id number] documented in this encounter Plan of Treatment Not on filedocumented as of this encounter Visit Diagnoses Not on filedocumented in this encounter
--- OUTSIDE RECORDS SUMMARY | 2022-04-01 13:16 | XMS_ITS | Encounter Summary ---
:1940 Author Organization [facility] Address [address] [place] [address] Care Team Providers Name Role Phone Unavailable Primary Care Provider Unavailable Encounter Details Date Type Department Care Team Description 12/21/2006 PN Conversion Only CONV GASTROENTEROLOG Y Henrique Palacios MD [address] [employer] [address] [place], [place] [id number] (Wo rk) Social History Tobacco Use Types Packs/Day Years Used Date Smoking Tobacco: Never Assessed Sex Assigned at Date Recorded Not on file documented as of this encounter Plan of Treatment Not on filedocumented as of this encounter Visit Diagnoses Not on filedocumented in this encounter
--- OUTSIDE RECORDS SUMMARY | 2022-04-01 13:16 | XMS_ITS | Encounter Summary ---
:1940 Author Organization [facility] Address [address] [place] [address] Care Team Providers Name Role Phone Unavailable Primary Care Provider Unavailable Encounter Details Date Type Department Care Team Description 08/03/2005 Nursing Visit [place] [facility] Yazan Garay MD [facility] [address] [facility] [address] [place] [address] [place] [address] [phone] Social History Tobacco Use Types Packs/Day Years Used Date Smoking Tobacco: Never Assessed Sex Assigned at Date Recorded Not on file documented as of this encounter Last Filed Vital Signs Vital Sign Reading Time Taken Comments Blood Pressure 142/84 08/03/2005 9:24 AM MULTIPLE SPINDLE SCREW MACHINE OPERATOR Pulse 80 08/03/2005 9:24 AM MULTIPLE SPINDLE SCREW MACHINE OPERATOR Temperature - - Respiratory Rate - - Oxygen Saturation - - Inhaled Oxygen Concentration - - Weight 97.5 kg (214 lb 15.9 oz) 08/03/2005 9:24 AM C: 9 7.5kg MULTIPLE SPINDLE SCREW MACHINE OPERATOR Height 177.8 cm (5' 10) 08/03/2005 9:24 AM C: 177.8cm MULTIPLE SPINDLE SCREW MACHINE OPERATOR Body Mass Index 30.85 08/03/2005 9:24 AM MULTIPLE SPINDLE SCREW MACHINE OPERATOR documented in this encounter Plan of Treatment Not on filedocumented as of this encounter Visit Diagnoses Not on filedocumented in this encounter
--- OUTSIDE RECORDS SUMMARY | 2022-04-01 13:16 | XMS_ITS | Encounter Summary ---
:1940 Author Organization [facility] Address [address] [place] [address] Care Team Providers Name Role Phone Unavailable Primary Care Provider Unavailable Reason for Visit Reason Comments Other Encounter Details Date Type Department Care Team Description 10/07/2005 Telephone [facility], Message Other [address] [place] [address] Social History Tobacco Use Types Packs/Day Years Used Date Smoking Tobacco: Never Assessed Sex Assigned at Date Recorded Not on file documented as of this encounter [facility], Message - 10/07/2005 9:31 AM CDT Phone Note filed by Dymant at 08/26/10 0434 Author: Dymant Service: (none) Author Type: (none) Filed: 08/26/10 0434 Note Time: 10/07/05930 Status: Signed Clockmaker Apprentice: Dymant PRESCRIPTION REFILL Please provide enough refills to last until patient's next visit. Comment:- Pharmacy Seq #:-[phone] Pharmacy Name:-[facility] [place] or City:[facility] Clinician Name:-Tanisha Drug Name/Strength:-Norvasc 2.5 mg tabs. Sig:-Take 1 tab daily. Quantity:-90 Last Fill:-05/08/05 Created on 07Oct2005 9:31am by GIOVANNA KHAN J On 07Oct2005 4:52pm KATJA GRIFFITH wrote: RX faxed. R SELECTOR documented in this encounter Plan of Treatment Not on filedocumented as of this encounter Visit Diagnoses Not on filedocumented in this encounter
--- OUTSIDE RECORDS SUMMARY | 2022-04-01 13:16 | XMS_ITS | Encounter Summary ---
:1940 Author Organization [facility] Address [address] [place] [address] Care Team Providers Name Role Phone Unavailable Primary Care Provider Unavailable Encounter Details Date Type Department Care Team Description 10/02/2005 PN Conversion Only CONFUCIANISM CONVERSION Rashid Luu MD [address] [place] [address] (Wo rk) Social History Tobacco [...] Siena Luu MD LAB_1 Performing Organization Address [facility] Phon e Number HP CONVERSION FSH (10/02/2005 9:59 AM CDT) P athologist Signature Follicle 2.5 1.4 - 18.1 HP CONVERSION Stimulating mIU/mL Hormone Specimen (Source) Anatomical Collection Method Collection Time Re ceived Time Location / / Volume Laterality 10/02/2005 9:59 AM CDT Rashid Luu MD LAB_1 Performing Organization Address [facility] Phon e Number HP CONVERSION (ABNORMAL) Testosterone, Total Adult Males (10/02/2005 9:59 AM CDT) Patholo gist Method Time Signature Testosterone 209 (L) 225 - 825 HP CONVERSION Level ng/dL Specimen (Source) Anatomical Collection Method Collection Time Re ceived Time Location / / Volume Laterality 10/02/2005 9:59 AM CDT C Siena Luu MD LAB_1 Performing Organization Address [facility] Phon e Number HP CONVERSION documented in this encounter Visit Diagnoses Not on filedocumented in this encounter
--- OUTSIDE RECORDS SUMMARY | 2022-04-01 13:16 | XMS_ITS | Encounter Summary ---
:1940 Author Organization [facility] Address [address] [place] [address] Care Team Providers Name Role Phone Unavailable Primary Care Provider Unavailable Encounter Details Date Type Department Care Team Description 04/27/2006 Title Investigator Only [facility] 3800 Rashid Pichardo MD Endocrinology [address] [facility] [address] [facility] [id number] [phone] Social History Tobacco Use Types Packs/Day Years [...] 1611 Note Time: 04/27/06 0001 Status: Signed Principal Clerk: Rashid Pichardo MD (Physician) 04/27/06: Labs reviewed. Testosterone and hgb borderline high. Consider going back to one packet of Androgel applied daily. Lab letter sent. JALEN Pichardo MD DRIVER OPERATOR BARGE MOUNTED documented in this encounter Plan of Treatment Not on filedocumented as of this encounter Visit Diagnoses Not on filedocumented in this encounter
--- OUTSIDE RECORDS SUMMARY | 2022-04-01 13:16 | XMS_ITS | Encounter Summary ---
:1940 Author Organization [facility] Address [address] [place] [address] Care Team Providers Name Role Phone Unavailable Primary Care Provider Unavailable Encounter Details Date Type Department Care Team Description 04/21/2006 Procedure Visit [facility] [address] [place] Anderson, OD Ophthalmology OFF SITE [address] [place] [address] [facility], [address] [phone] Social History Tobacco Use Types Packs/Day Years Used Date Smoking Tobacco: Never Assessed Sex Assigned at Date Recorded Not on file documented as of this encounter Plan of Treatment Not on filedocumented as of this encounter Visit Diagnoses Not on filedocumented in this encounter
--- OUTSIDE RECORDS SUMMARY | 2022-04-01 13:16 | XMS_ITS | Encounter Summary ---
:1940 Author Organization [facility] Address [address] [place] [address] Care Team Providers Name Role Phone Unavailable Primary Care Provider Unavailable Encounter Details Date Type Department Care Team Description 12/21/2006 Hospital Encounter [facility] 6500 Henrique Barrientos MD [address] [place] [address] Endoscopy Henrique Palacios MD [address] [place], [place] [id number] [address] [place] [address] Social History Tobacco Use Types [...] signed by Henrique Palacios MD at 12/21/06 5706 Author: Henrique Palacios MD Service: (none) Author Type: Physician Filed: 08/29/102058 Note Time: 12/21/06 1050 Status: Signed Corporate Representative: Henrique Palacios MD (Physician) Patient Name: Mo [...] and oxygen saturations were monitored continuously. The CF-[id number] colonoscope was introduced through the anus and [...] to primary care physician PRN. CPT4 Code(s): 54695, 51, Colonoscopy, flexible, proximal to splenic flexure; with ablation of tumor(s), polyp(s), or other lesion(s) not amenable to removal by hot biopsy forceps, bipolar cautery or snare technique 29978, Colonoscopy, flexible, proximal to splenic flexure; with removal of tumor(s), polyp(s), or other lesion(s) by snare technique 08012, 51, Colonoscopy, flexible, proximal to splenic flexure; with biopsy, single or multiple ICD9 Code(s): 211.3, Benign neoplasm of colon V12.72, Personal history of colonic polyps V76.51, Special screening for malignant neoplasms, colon The codes documented in this report are preliminary and upon automobile body worker review may be revised to meet current [...] Results Pathology Report (12/21/2006 12:37 PM CDT) [facility] gist Method Time Signature Surgical SEE TEXT No normal HP CONVERSION Pathology range Comment: Patient: MO SOTELO ?S URGICAL PATHOLOGY REPORT Pathology # ??[id number] ?Date Obtained: ? Date Received: DIAGNOSIS: A) ??Colon, cecum and rectum, endoscopic biopsies: ?- Multiple fragments of hyperplast ic polyps, no evidence of adenomatous ?change or malignancy. B) ??Colon, transverse, endoscopic biops ies: ?- Benign polyp, favor sessile serr ated adenoma, no overt adenomatous ?nuclear features. ?Lorena Acevedo M.D. ?(electronic signature) JSM/JSM/beh Date of Report: 12/22/06 Pathology # ??[id number] ?Date Obtained: ? Date Received: ORGAN/TISSUE SITE: ?Cecal rectal polyp/Transverse poly p GROSS DESCRIPTION: A) ??The specimen is labeled cecal recta l polyps and consists of multiple barahona ?mucosal tissue fragments averaging 0.1 cm in greatest dimension. ??Entirely ?submitted in cassette [id number] A. B) ??The specimen is labeled transverse polyp and consists of a single bar[place]ona ?mucosal tissue fragment measuring 0.5 cm in greatest dimension. ??Entirely ?submitted in cassette [id number] B. AMW/ajn MICROSCOPIC DESCRIPTION: A-B) The microscopic [...]
--- OUTSIDE RECORDS SUMMARY | 2022-04-01 13:16 | XMS_ITS | Encounter Summary ---
:1940 Author Organization [facility] Address [address] [place] [address] Care Team Providers Name Role Phone Unavailable Primary Care Provider Unavailable Reason for Visit Reason Comments Other Encounter Details Date Type Department Care Team Description 08/06/2005 Telephone [facility], Message Other [address] [place] [address] Social History Tobacco Use Types Packs/Day Years Used Date Smoking Tobacco: Never Assessed Sex Assigned at Date Recorded Not on file documented as of this encounter [facility], Message - 08/06/2005 3:38 PM CST Phone Note filed by Boastify at 08/26/10219 Author: Boastify Service: (none) Author Type: (none) Filed: 08/26/10219 Note Time: 08/06/05 1538 Status: Signed Head Porter: [facility] Lab letter to patient per . Several abnormal labs. Please schedule an appointment to discuss. Letter mailed. Created on 06Aug2005 3:38pm by SALLY ROSE ONIZER documented in this encounter Plan of Treatment Not on filedocumented as of this encounter Visit Diagnoses Not on filedocumented in this encounter
--- OUTSIDE RECORDS SUMMARY | 2022-04-01 13:16 | XMS_ITS | Encounter Summary ---
:1940 Author Organization [facility] Address [address] [place] [address] Care Team Providers Name Role Phone Unavailable Primary Care Provider Unavailable Encounter Details Date Type Department Care Team Description 10/07/2005 Milling Machine Operator Gear Only [facility] 3800 Rashid Pichardo MD Endocrinology 3800 [facility] [address] [facility] [place] [id number] [phone] Social History Tobacco Use Types Packs/Day Years Used Date Smoking Tobacco: Never Assessed Sex Assigned at Date Recorded Not on file documented as of this encounter Progress Notes Rashid Pichardo MD - 10/07/2005 12:01 AM CDT Progress Notes signed by Rashid Pichardo MD at 10/07/05 9498 Author: Rashid Pichardo MD Service: (none) Author Type: Physician Filed: 08/29/10 1210 Note Time: 10/07/05 0001 Status: Signed Office Specialist: Rashid Pichardo MD (Physician) 10/07/05: Labs from 10/02/05 reviewed. T los before shot. Switch to androgel. Get tetosterone level drawn before appt. RTC 4-6 weeks. Lab letter sent. JALEN Pichardo MD PhD documented in this encounter Plan of Treatment Not on filedocumented as of this encounter Visit Diagnoses Not on filedocumented in this encounter
--- OUTSIDE RECORDS SUMMARY | 2022-04-01 13:16 | XMS_ITS | Encounter Summary ---
:1940 [facility] Address [address] [place] [address] Care Team Providers Name Role Phone Unavailable Primary Care Provider Unavailable Encounter Details Date Type Department Care Team Description 08/24/2005 Office Visit [facility] Sandra Garay MD [facility] [address] [facility] [address] [place] [address] [place], [place] [address] [phone] Social History Tobacco Use Types Packs/Day Years [...] Body Mass Index 30.73 08/03/2005 9:24 AM ENERGY DERIVATIVES TRADER documented in this encounter Progress Notes Sandra Garay MD - 08/24/2005 12:01 AM CDT Progress Notes signed by Sandra Garay MD at 10/11/05 5929 Author: Sandra Garay MD Service: (none) Author Type: Physician Filed: 08/29/10 1117 Note Time: 08/24/05 0001 Status: Signed Power Plant Operator Apprentice: Sandra Garay MD (Physician) NAME: ALEXANRD DALEY MR: [id number] ACCT: [id number] VISIT: [id number] DICTATING CLINICIAN: SANDRA Yonas MD JACQUI JOB: [id number] CLINIC PROGRESS NOTE DATE OF VISIT: 08/24/2005 [...] does have an appointment to see our bakery helper in near future. We spent the remainder [...] on counseling this patient regarding glucose intolerance. SHN:[id number] C: 08/25/05 10:56 DOCUMENT: [id number] documented in this encounter Plan of Treatment Not on filedocumented as of this encounter Visit Diagnoses Not on filedocumented in this encounter
--- OUTSIDE RECORDS SUMMARY | 2022-04-01 13:16 | XMS_ITS | Encounter Summary ---
:1940 Author Organization [facility] Address [address] [place] [address] Care Team Providers Name Role Phone Unavailable Primary Care Provider Unavailable Reason for Visit Reason Comments Other Encounter Details Date Type Department Care Team Description 12/16/2006 Telephone [facility] 6500 Stacy Lofton RN Other Gastroenterology 6500 [facility] [place], [place] [address] Social History Tobacco Use Types Packs/Day Years Used Date Smoking Tobacco: Never Assessed Sex Assigned at Date Recorded Not on file documented as of this encounter Progress Notes Stacy Lofton RN - 12/16/2006 9:57 AM CDT Phone Note filed by Stacy Lofton RN at 08/27/10144 Author: Stacy Lofton RN Service: (none) Author Type: Registered Nurse Filed: 08/27/10144 Note Time: 12/16/06956 Status: Signed Crate Builder: Stacy Lofton RN (Registered Nurse) PPA completed/instructions reviewed for colonoscopy Created on 16Dec2006 9:57am by STACY LOFTON BOOK ASSOCIATE documented in this encounter Plan of Treatment Not on filedocumented as of this encounter Visit Diagnoses Not on filedocumented in this encounter
--- OUTSIDE RECORDS SUMMARY | 2022-04-01 13:16 | XMS_ITS | Encounter Summary ---
:1940 Author Organization [facility] Address [address] [place] [address] Care Team Providers Name Role Phone Unavailable Primary Care Provider Unavailable Encounter Details Date Type Department Care Team Description 02/15/2006 Nursing Visit [facility] [place] [address] [facility] [address] [place] [address] [place] [phone] [address] Social History Tobacco Use Types Packs/Day Years Used Date Smoking Tobacco: Never Assessed Sex Assigned at Date Recorded Not on file documented as of this encounter Plan of Treatment Not on filedocumented as of this encounter Visit Diagnoses Not on filedocumented in this encounter
--- OUTSIDE RECORDS SUMMARY | 2022-04-01 13:16 | XMS_ITS | Encounter Summary ---
:1940 Author Organization [facility] Address [address] [place] [address] Care Team Providers Name Role Phone Unavailable Primary Care Provider Unavailable Encounter Details Date Type Department Care Team Description 10/25/2006 Office Visit [facility] [address] [place] [address] 9715 [facility] [phone] [facility], [address] Social History Tobacco Use Types Packs/Day Years Used Date Smoking Tobacco: Never Assessed Sex Assigned at Date Recorded Not on file documented as of this encounter Plan of Treatment Not on filedocumented as of this encounter Visit Diagnoses Not on filedocumented in this encounter
--- OUTSIDE RECORDS SUMMARY | 2022-04-01 13:16 | XMS_ITS | Encounter Summary ---
:1940 Author Organization [facility] Address [address] [place] [address] Care Team Providers Name Role Phone Unavailable Primary Care Provider Unavailable Reason for Visit Reason Comments Other Encounter Details Date Type Department Care Team Description 10/06/2006 Telephone [facility], Message Other [address] [place] [address] Social History Tobacco Use Types Packs/Day Years Used Date Smoking Tobacco: Never Assessed Sex Assigned at Date Recorded Not on file documented as of this encounter Progress Notes Christin Severino - 10/06/2006 3:23 PM CDT Phone Note filed by Christin Severino at 08/26/102132 Author: Christin Severino Service: (none) Author Type: (none) Filed: 08/26/102132 Note Time: 10/06/061522 Status: Signed Machinery Mechanic: Imr Conversion Prescription Refill Please provide enough refills to last until patient's next visit. Comment:- Pharmacy Seq #:-[phone] Pharmacy Name:-[facility] [place] Pool or City:-[place], [place] Clinician Name:-JACQUI Drug Name/Strength:-NORVASC TAB 2.5 [...] 9:13am Acknowledged by ADOLFO CASTELLANOS on 2:06pm SELLING PSYCHOLOGIST documented in this encounter Plan of Treatment Not on filedocumented as of this encounter Visit Diagnoses Not on filedocumented in this encounter
--- OUTSIDE RECORDS SUMMARY | 2022-04-01 13:16 | XMS_ITS | Encounter Summary ---
:1940 Author Organization [facility] Address [address] [place] [address] Care Team Providers Name Role Phone Unavailable Primary Care Provider Unavailable Encounter Details Date Type Department Care Team Description 12/27/2006 Notes/Orders [facility] icine Conversion, User [address] [place] [address] [place], [place] [phone] [address] Social History Tobacco Use Types Packs/Day Years [...]
--- OUTSIDE RECORDS SUMMARY | 2022-04-01 13:16 | XMS_ITS | Encounter Summary ---
:1940 Author Organization [facility] Address [address] [place] [address] Care Team Providers Name Role Phone Unavailable Primary Care Provider Unavailable Encounter Details Date Type Department Care Team Description 03/01/2006 Office Visit [place] [address] [address] 9715 [facility] [phone] [facility], [address] Social History Tobacco Use Types Packs/Day Years Used Date Smoking Tobacco: Never Assessed Sex Assigned at Date Recorded Not on file documented as of this encounter Plan of Treatment Not on filedocumented as of this encounter Visit Diagnoses Not on filedocumented in this encounter
--- OUTSIDE RECORDS SUMMARY | 2022-04-01 13:16 | XMS_ITS | Encounter Summary ---
:1940 Author Organization [facility] Address [address] [place] [address] Care Team Providers Name Role Phone Unavailable Primary Care Provider Unavailable Encounter Details Date Type Department Care Team Description 04/21/2006 Procedure Visit [facility] [address] Miller Anderson, OD Ophthalmology OFF SITE [address] [place] [address] [facility] [place], [address] [phone] Social History Tobacco Use Types Packs/Day Years Used Date Smoking Tobacco: Never Assessed Sex Assigned at Date Recorded Not on file documented as of this encounter Plan of Treatment Not on filedocumented as of this encounter Visit Diagnoses Not on filedocumented in this encounter
--- OUTSIDE RECORDS SUMMARY | 2022-04-01 13:16 | XMS_ITS | Encounter Summary ---
:1940 Author Organization [facility] Address [address] [place] [address] Care Team Providers Name Role Phone Unavailable Primary Care Provider Unavailable Encounter Details Date Type Department Care Team Description 09/22/[address] [facility] 3800 Rashid Luu MD Endocrinology [address] [facility] [address] [address] [place], [place] [address] [phone] Social History Tobacco Use Types Packs/Day Years [...] 1154 Note Time: 09/22/05 0001 Status: Signed Civil Engineering Drafter: Rashid Luu MD (Physician) NAME: ALEXANDR SOTELO MR: [id number] ACCT: [id number] VISIT: [id number] DICTATING CLINICIAN: Bryn LUU MD JOB: [id number] CLINIC PROGRESS NOTE DATE OF VISIT: 09/22/2005 [...] working okay. CC: SANDRA Yonas MD JACQUI CD:[id number] C: 09/23/05 12:07 DOCUMENT: [id number] 09/28/05: Labs reviewed. FSH and LH missed. [...]
--- OUTSIDE RECORDS SUMMARY | 2022-04-01 13:17 | XMS_ITS | Encounter Summary ---
:1940 Author Organization [facility] Address [address] [place] [address] Care Team Providers Name Role Phone Unavailable Primary Care Provider Unavailable Encounter Details Date Type Department Care Team Description 01/28/2005 Nursing Visit [facility] Yazan Garay MD [facility] [address] [facility] [address] [place] [address] [place] [address] [phone] Social History Tobacco Use Types Packs/Day Years [...]
--- OUTSIDE RECORDS SUMMARY | 2022-04-01 13:17 | XMS_ITS | Encounter Summary ---
:1940 Author Organization [facility] Address [address] [place] [address] Care Team Providers Name Role Phone Unavailable Primary Care Provider Unavailable Reason for Visit Reason Comments Other Encounter Details Date Type Department Care Team Description 07/06/2005 Telephone [facility], Message Other [address] [place], [place] [address] Social History Tobacco Use Types Packs/Day Years Used Date Smoking Tobacco: Never Assessed Sex Assigned at Date Recorded Not on file documented as of this encounter [facility], Message - 07/06/2005 12:51 PM CST Phone Note filed by Exterity at 08/26/10108 Author: Exterity Service: (none) Author Type: (none) Filed: 08/26/10108 Note Time: 07/06/05 1251 Status: Signed Therapeutic Assistant: Message [address] Hi! this is a patient of Dr [...] by YENI GORDON on 1:17pm Acknowledged by ULZMARIA BELLAMY on 1:18pm Acknowledged by KAREN DUNN on 3:27pm R PRINTER OPERATOR documented in this encounter Plan of Treatment Not on filedocumented as of this encounter Visit Diagnoses Not on filedocumented in this encounter
--- OUTSIDE RECORDS SUMMARY | 2022-04-01 13:17 | XMS_ITS | Encounter Summary ---
:1940 Author Organization [facility] Address [address] [place] [address] Care Team Providers Name Role Phone Unavailable Primary Care Provider Unavailable Encounter Details Date Type Department Care Team Description 06/02/2005 PN Conversion Only [facility] [address] [address] [place] [address] Social History Tobacco Use Types Packs/Day Years Used Date Smoking Tobacco: Never Assessed Sex Assigned at Date Recorded Not on file documented as of this encounter Plan of Treatment Not on filedocumented as of this encounter Visit Diagnoses Not on filedocumented in this encounter
--- OUTSIDE RECORDS SUMMARY | 2022-04-01 13:17 | XMS_ITS | Encounter Summary ---
:1940 Author Organization [facility] Address [address] [place] [address] Care Team Providers Name Role Phone Unavailable Primary Care Provider Unavailable Encounter Details Date Type Department Care Team Description 08/03/2005 Office Visit [place] [facility] Sandra Osman MD [address] [address] [place] [address] [place], [place] [address] [phone] Social History Tobacco Use Types Packs/Day Years Used Date Smoking Tobacco: Never Assessed Sex Assigned at Date Recorded Not on file documented as of this encounter Progress Notes Sandra Osman MD - 08/03/2005 12:01 AM CST H&P signed by Sandra Osman MD at 08/23/05 2115 Author: Sandra Osman MD Service: (none) Author Type: Physician Filed: 08/29/10 1051 Note Time: 08/03/05 0001 Status: Signed Gallery Or Museum Curator: Sandra Osman MD (Physician) NAME: ALEXANDR SOTELO MR: [id number] ACCT: [id number] VISIT: [id number] DICTATING CLINICIAN: SANDRA OSMAN MD JOB: [id number] CLINIC PHYSICAL DATE OF VISIT: 08/03/2005 SUBJECTIVE: [...] day. 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 His smoking history, as [...] Deep tendon reflexes symmetrical. Both toes downgoing. Ywspwq-gx-hgsf without dysmetria. Romberg stable, gait steady. ASSESSMENT: [...] is likely due to hemorrhoid. I recommend kdjt-kts-mladwsk Preparation H and Cortaid. Return if symptoms persist or worsen. SHN:[id number] C: 08/04/05 12:05 DOCUMENT: [id number] documented in this encounter Plan of Treatment Not on filedocumented as of this encounter Visit Diagnoses Not on filedocumented in this encounter
--- OUTSIDE RECORDS SUMMARY | 2022-04-01 13:17 | XMS_ITS | Encounter Summary ---
:1940 Author Organization [facility] Address [address] [place] [address] Care Team Providers Name Role Phone Unavailable Primary Care Provider Unavailable Encounter Details Date Type Department Care Team Description 04/03/2005 Nursing Visit [place] [facility] Kindra Abdi MD [id number] [place] [address] [phone] Social History Tobacco Use Types Packs/Day Years Used Date Smoking Tobacco: Never Assessed Sex Assigned at Date Recorded Not on file documented as of this encounter Last Filed Vital Signs Vital Sign Reading Time Taken Comments Blood Pressure 126/78 04/03/2005 11:23 AM ENTERPRISE SYSTEMS MANAGER Pulse 60 04/03/2005 11:20 AM ENTERPRISE SYSTEMS MANAGER C: Radia l Regular Temperature - - Respiratory Rate - - Oxygen Saturation - - Inhaled Oxygen Concentration - - Weight - - Height - - Body Mass Index - - documented in this encounter Plan of Treatment Not on filedocumented as of this encounter Visit Diagnoses Not on filedocumented in this encounter
--- OUTSIDE RECORDS SUMMARY | 2022-04-01 13:17 | XMS_ITS | Encounter Summary ---
:1940 Author Organization [facility] Address [address] [place] [address] Care Team Providers Name Role Phone Unavailable Primary Care Provider Unavailable Reason for Visit Reason Comments Other Encounter Details Date Type Department Care Team Description 01/28/2005 Telephone [place] [facility] Jose Antonio Rodgers MBBS Other Medicine [address] [address] [place], [place] [address] [phone] Social History Tobacco Use Types Packs/Day Years Used Date Smoking Tobacco: Never Assessed Sex Assigned at Date Recorded Not on file documented as of this encounter Progress Notes Eyad Bui - 01/28/2005 10:49 AM CDT Phone Note filed by [employer] at 08/25/102046 Author: [employer] Service: (none) Author Type: (none) Filed: 08/25/102046 Note Time: 01/28/051048 Status: Signed Ring Making Machine Operator: Message [employer] Mo B/Juan check on 01/28 122/78 R. arm P 88 Created on 28Jan2005 10:49am by YAZMIN TRAYLOR Acknowledged by JOSE ANTONIO RODGERS on 10:33am END ANCHOR documented in this encounter Plan of Treatment Not on filedocumented as of this encounter Visit Diagnoses Not on filedocumented in this encounter
--- OUTSIDE RECORDS SUMMARY | 2022-04-01 13:17 | XMS_ITS | Encounter Summary ---
:1940 Author Organization [facility] Address [address] [place] [address] Care Team Providers Name Role Phone Unavailable Primary Care Provider Unavailable Encounter Details Date Type Department Care Team Description 03/09/2005 Nursing Visit [place] [facility] Juan Antonio, Caleb martínez MD Medicine [address] [address] [facility] [address] [place] [address] [place], [place] [phone] (Wo rk) Social History Tobacco Use Types Packs/Day Years Used Date Smoking Tobacco: Never Assessed Sex Assigned at Date Recorded Not on file documented as of this encounter Plan of Treatment Not on filedocumented as of this encounter Visit Diagnoses Not on filedocumented in this encounter
--- OUTSIDE RECORDS SUMMARY | 2022-04-01 13:17 | XMS_ITS | Encounter Summary ---
:1940 Author Organization [facility] Address [address] [place] [address] Care Team Providers Name Role Phone Unavailable Primary Care Provider Unavailable Reason for Visit Reason Comments Other Encounter Details Date Type Department Care Team Description 01/02/2005 Telephone [place] [facility] Jose Antonio Rodgers MBBS Other Medicine [address] [address] [place], [place] [address] [phone] Social History Tobacco Use Types Packs/Day Years Used Date Smoking Tobacco: Never Assessed Sex Assigned at Date Recorded Not on file documented as of this encounter Progress Notes Sarah Valenzuela - 01/02/2005 10:10 AM CDT Phone Note filed by Sarah Valenzuela LPN at 08/25/102009 Author: Sarah Valenzuela LPN Service: (none) Author Type: (none) Filed: 08/25/102009 Note Time: 01/02/05 1010 Status: Signed Assistant Professor Nurse Education: Imr Conversion Please see vital sign viewer for Pt's Bp reading today. Created on 02Jan2005 10:10am by SARAH VALENZUELA Acknowledged by JOSE ANTONIO RODGERS on 12:07pm RNATIVE EDUCATION TEACHER documented in this encounter Plan of Treatment Not on filedocumented as of this encounter Visit Diagnoses Not on filedocumented in this encounter
--- OUTSIDE RECORDS SUMMARY | 2022-04-01 13:17 | XMS_ITS | Encounter Summary ---
:1940 Author Organization [facility] Address [address] [place] [address] Care Team Providers Name Role Phone Unavailable Primary Care Provider Unavailable Encounter Details Date Type Department Care Team Description 05/06/2005 Nursing Visit [place] [facility] Juan Antonio, Caleb martínez MD Medicine [address] [address] [facility] [address] [place] [address] [place], [place] [phone] (Wo rk) Social History Tobacco Use Types Packs/Day Years Used Date Smoking Tobacco: Never Assessed Sex Assigned at Date Recorded Not on file documented as of this encounter Plan of Treatment Not on filedocumented as of this encounter Visit Diagnoses Not on filedocumented in this encounter
--- OUTSIDE RECORDS SUMMARY | 2022-04-01 13:17 | XMS_ITS | Encounter Summary ---
:1940 Author Organization [facility] Address [address] [place] [address] Care Team Providers Name Role Phone Unavailable Primary Care Provider Unavailable Reason for Visit Reason Comments Other Encounter Details Date Type Department Care Team Description 10/31/2004 Telephone [place] [facility] Jose Antonio Rodgers MBBS Other Medicine [address] [address] [place] [address] [phone] Social History Tobacco Use Types Packs/Day Years Used Date Smoking Tobacco: Never Assessed Sex Assigned at Date Recorded Not on file documented as of this encounter Progress Notes Kan[place], Message - 10/31/2004 12:33 PM CDT Phone Note filed by [email or web address] at 08/25/101858 Author: [email or web address] Service: (none) Author Type: (none) Filed: 08/25/101858 Note Time: 10/31/041232 Status: Signed Stacker And Sorter Operator: Message Kanmu De! please see on-line vital sign flowsheet for today's blood pressure readings. Created on 31Oct2004 12:33pm by KAREN DUNN Acknowledged by JOSE ANTONIO RODGERS on 3:15pm ICULTURE SUPERINTENDENT documented in this encounter Plan of Treatment Not on filedocumented as of this encounter Visit Diagnoses Not on filedocumented in this encounter
--- OUTSIDE RECORDS SUMMARY | 2022-04-01 13:17 | XMS_ITS | Encounter Summary ---
:1940 Author Organization [facility] Address [address] [place] [address] Care Team Providers Name Role Phone Unavailable Primary Care Provider Unavailable Encounter Details Date Type Department Care Team Description 06/03/2005 Nursing Visit [place] [facility] Jose Antonio Carolina, JOYCE Medicine 6500 [facility] [address] [place], [place] [address] [place] [address] [phone] Social History Tobacco Use Types Packs/Day Years Used Date Smoking Tobacco: Never Assessed Sex Assigned at Date Recorded Not on file documented as of this encounter Last Filed Vital Signs Vital Sign Reading Time Taken Comments Blood Pressure 140/80 06/03/2005 11:11 AM CEMETERY LABORER Pulse 64 06/03/2005 11:09 AM CEMETERY LABORER C: Radia l Regular Temperature - - Respiratory Rate - - Oxygen Saturation - - Inhaled Oxygen Concentration - - Weight - - Height - - Body Mass Index - - documented in this encounter Plan of Treatment Not on filedocumented as of this encounter Visit Diagnoses Not on filedocumented in this encounter
--- OUTSIDE RECORDS SUMMARY | 2022-04-01 13:17 | XMS_ITS | Encounter Summary ---
:1940 Author Organization [facility] Address [address] [place] [address] Care Team Providers Name Role Phone Unavailable Primary Care Provider Unavailable Encounter Details Date Type Department Care Team Description 01/02/2005 Nursing Visit [place] [facility] Jose Antonio Carolina, JOYCE Medicine 6500 [facility] [address] [place] [address] [place] [address] [phone] Social History Tobacco Use Types Packs/Day Years [...]
--- OUTSIDE RECORDS SUMMARY | 2022-04-01 13:17 | XMS_ITS | Encounter Summary ---
:1940 Author Organization [facility] Address [address] [place] [address] Care Team Providers Name Role Phone Unavailable Primary Care Provider Unavailable Encounter Details Date Type Department Care Team Description 10/31/2004 Nursing Visit [place] [facility] Jose Antonio Carolina, JORDANABS Medicine 6500 [facility] [address] [place] [address] [place] [address] [phone] Social History Tobacco Use Types Packs/Day Years [...]
--- OUTSIDE RECORDS SUMMARY | 2022-04-01 13:17 | XMS_ITS | Encounter Summary ---
:1940 Author Organization [facility] Address [address] [place] [address] Care Team Providers Name Role Phone Unavailable Primary Care Provider Unavailable Reason for Visit Reason Comments Other Encounter Details Date Type Department Care Team Description 06/03/2005 Telephone [place] [facility] Jose Antonio Rodgers MBBS Other Medicine [address] [place] [address] [place] [address] [phone] Social History Tobacco Use Types Packs/Day Years Used Date Smoking Tobacco: Never Assessed Sex Assigned at Date Recorded Not on file documented as of this encounter Progress Notes [place], Message - 06/03/2005 12:11 PM CST Phone Note filed by [employer] at 08/26/108 Author: [employer] Service: (none) Author Type: (none) Filed: 08/26/108 Note Time: 06/03/051210 Status: Signed [place]: Message Analyze Re Hi! please see on-line vital sign flowsheet for today's blood pressure reading.Thanx! Created on 03Jun2005 12:11pm by KAREN DUNN Acknowledged by JOSE ANTONIO RODGERS on 1:11pm CTOR GENERAL documented in this encounter Plan of Treatment Not on filedocumented as of this encounter Visit Diagnoses Not on filedocumented in this encounter
--- OUTSIDE RECORDS SUMMARY | 2022-04-01 13:17 | XMS_ITS | Encounter Summary ---
:1940 Author Organization [facility] Address [address] [place] [address] Care Team Providers Name Role Phone Unavailable Primary Care Provider Unavailable Encounter Details Date Type Department Care Team Description 12/03/2004 Nursing Visit [place] [facility] Jose Antonio Carolina, JOYCE Medicine 6500 [facility] [address] [place] [address] [place] [address] [phone] Social History Tobacco Use Types Packs/Day Years [...]
--- OUTSIDE RECORDS SUMMARY | 2022-04-01 13:17 | XMS_ITS | Encounter Summary ---
:1940 Author Organization [facility] Address [address] [place] [address] Care Team Providers Name Role Phone Unavailable Primary Care Provider Unavailable Encounter Details Date Type Department Care Team Description 07/06/2005 Nursing Visit [place] [facility] [place], Radha Ortiz MD [facility] [address] [place] [address] [phone] Social History Tobacco Use Types Packs/Day Years Used Date Smoking Tobacco: Never Assessed Sex Assigned at Date Recorded Not on file documented as of this encounter Last Filed Vital Signs Vital Sign Reading Time Taken Comments Blood Pressure 116/78 07/06/2005 11:00 AM DRILLING RIG OPERATOR Pulse 72 07/06/2005 10:58 AM DRILLING RIG OPERATOR C: Radia l Regular Temperature - - Respiratory Rate - - Oxygen Saturation - - Inhaled Oxygen Concentration - - Weight - - Height - - Body Mass Index - - documented in this encounter Plan of Treatment Not on filedocumented as of this encounter Visit Diagnoses Not on filedocumented in this encounter
--- OUTSIDE RECORDS SUMMARY | 2022-04-01 13:18 | XMS_ITS | Encounter Summary ---
:1940 Author Organization [facility] Address [address] [place] [address] Care Team Providers Name Role Phone Unavailable Primary Care Provider Unavailable Reason for Visit Reason Comments Other Encounter Details Date Type Department Care Team Description 11/27/2003 Telephone [place] Internal Jose Antonio Rodgers MBBS Other Medicine [address] [address] [place], [place] [address] [phone] Social History Tobacco Use Types Packs/Day Years Used Date Smoking Tobacco: Never Assessed Sex Assigned at Date Recorded Not on file documented as of this encounter Progress Notes [place], Message - 11/27/2003 4:17 PM CDT Phone Note filed by [email or web address] at 08/25/10 1325 Author: [email or web address] Service: (none) Author Type: (none) Filed: 08/25/10 1325 Note Time: 11/27/03 1617 Status: Signed Gas Compressor Turbine Operator: [facility] blood pressure 110/66 right arm at 1308.radial [...]
--- OUTSIDE RECORDS SUMMARY | 2022-04-01 13:18 | XMS_ITS | Encounter Summary ---
:1940 Author Organization [facility] Address [address] [place] [address] Care Team Providers Name Role Phone Unavailable Primary Care Provider Unavailable Reason for Visit Reason Comments Other Encounter Details Date Type Department Care Team Description 05/28/2004 Telephone [place] Internal Jose Antonio Rodgers MBBS Other Medicine [address] [address] [place], [place] [address] [phone] Social History Tobacco Use Types Packs/Day Years Used Date Smoking Tobacco: Never Assessed Sex Assigned at Date Recorded Not on file documented as of this encounter Progress Notes [place], Message - 05/28/2004 12:28 PM CST Phone Note filed by [employer] at 08/25/10 1611 Author: [employer] Service: (none) Author Type: (none) Filed: 08/25/101610 Note Time: 05/28/04 1228 Status: Signed Reference Investigator: [employer] blood pressure readings 112/70 right arm at [...]
--- OUTSIDE RECORDS SUMMARY | 2022-04-01 13:18 | XMS_ITS | Encounter Summary ---
:1940 Author Organization [facility] Address [address] [place] [address] Care Team Providers Name Role Phone Unavailable Primary Care Provider Unavailable Encounter Details Date Type Department Care Team Description 04/23/2004 Nursing Visit [place] [facility] Jose Antonio Carolina, JORDANABS Medicine [address] [address] [place] [address] [phone] Social History Tobacco Use Types Packs/Day Years Used Date Smoking Tobacco: Never Assessed Sex Assigned at Date Recorded Not on file documented as of this encounter Plan of Treatment Not on filedocumented as of this encounter Visit Diagnoses Not on filedocumented in this encounter
--- OUTSIDE RECORDS SUMMARY | 2022-04-01 13:18 | XMS_ITS | Encounter Summary ---
:1940 Author [facility] Address [address] [place] [address] Care Team Providers Name Role Phone Unavailable Primary Care Provider Unavailable Encounter Details Date Type Department Care Team Description 04/25/2004 Office Visit [place] [facility] [employer] [address] [place] [address] Social History Tobacco Use Types Packs/Day Years Used Date Smoking Tobacco: Never Assessed Sex Assigned at Date Recorded Not on file documented as of this encounter Plan of Treatment Not on filedocumented as of this encounter Visit Diagnoses Not on filedocumented in this encounter
--- OUTSIDE RECORDS SUMMARY | 2022-04-01 13:18 | XMS_ITS | Encounter Summary ---
:1940 Author Organization [facility] Address [address] [place] [address] Care Team Providers Name Role Phone Unavailable Primary Care Provider Unavailable Encounter Details Date Type Department Care Team Description 10/26/2003 PN Conversion Only [facility] [address] [place] [address] Social History Tobacco Use Types Packs/Day Years Used Date Smoking Tobacco: Never Assessed Sex Assigned at Date Recorded Not on file documented as of this encounter Progress Notes Phone Note, Clinician - 10/26/2003 12:01 AM CDT Phone Note filed by Clinician Phone Note at 08/26/101421 Author: Clinician Phone Note Service: (none) Author Type: Resource Filed: 08/26/101421 Note Time: 10/26/03 0001 Status: Signed Uniform Cap Operator: Clinician Phone Note (Resource) TO: VIKTORIYA RODGERS FROM: KAREN HELTON [phone] 10/26/03 * PROVIDER MESSAGE: WINNIEI *NO * 03:31PM * INPUT NECESSARY * MESSAGE: blood pressure 130/66 right * HOME PHONE:[phone] * arm at 1328.radial pulse 72 and * CONTACT PHONE:[phone] * regular. bp 124/72 left arm at 1331.pt rested 5 minutes b/4 bp readings obtained.large cuff applied to obtain bp readings. SUBJECTIVE: ALLERGIES/SENSITIVITIES... 03/23/04 CURRENT MEDICATIONS... 07/31/03 PERTINENT PAST HISTORY... 07/31/03 WEIGHT: ASSESSMENT: fyi-blood pressure readings PLAN: DISPOSITION: NO DISPOSITION GIVEN CALL BY KAREN HELTON 10/26/2003 03:27PM [id number] ADDENDUM: Phone Note, Clinician - 10/23/2003 12:01 AM CDT Phone Note filed by Clinician Phone Note at 08/26/10 5910 Author: Clinician Phone Note Service: (none) Author Type: Resource Filed: 08/26/10 1420 Note Time: 10/23/03 0001 Status: Signed Uniform Cap Operator: Clinician Phone Note (Resource) TO: VIKTORIYA RODGERS FROM: VAUGHN FISHER [phone] 10/23/03 * PROVIDER MESSAGE: ROUTINE * 08:25AM * *WITHIN 4 HOURS * MESSAGE: Pt calling because he would * HOME PHONE:[phone] * like more Viagra 100mg. This time * CONTACT PHONE:[phone] * he would like the script good for a longer time. He uses our pharmacy. Thank You! SUBJECTIVE: ALLERGIES/SENSITIVITIES... 07/31/03 CURRENT MEDICATIONS... 07/31/03 PERTINENT PAST HISTORY... 07/31/03 WEIGHT: ASSESSMENT: Pt calling PLAN: DISPOSITION: NO DISPOSITION GIVEN CALL BY VAUGHN FISHER 10/23/2003 08:20AM [phone] ADDENDUM: <> 10/23/2003 01:14PM by CONSTANTINO BOONE RN: Per Dr Garay, Please call Viagra 100mg #8 with 3 refills. Rx called to [facility] pharmacy. Pt was notified. Phone Note, Clinician - 09/28/2003 12:01 AM CDT Phone Note filed by Clinician Phone Note at 08/26/10 1408 Author: Clinician Phone Note Service: (none) Author Type: Resource Filed: 08/26/10 1408 Note Time: 09/28/03 0001 Status: Signed Uniform Cap Operator: Clinician Phone Note (Resource) TO: VIKTORIYA RODGERS FROM: KAREN HELTON [id number] 09/28/03 * PROVIDER MESSAGE: FYI *NO * 02:32PM * INPUT NECESSARY * MESSAGE: blood pressure 128/76 right * HOME PHONE:[phone] * arm at 1338.radial pulse 60 and * CONTACT PHONE:[phone] * regular. bp 126/68 left arm at 1340.pt rested 5 minutes b/4 bp readings obtained.large bp cuff applied to obtain bp readings.kjs SUBJECTIVE: ALLERGIES/SENSITIVITIES... 07/31/03 CURRENT MEDICATIONS... 07/31/03 PERTINENT PAST HISTORY... 07/31/03 WEIGHT: ASSESSMENT: blood pressure readings PLAN: DISPOSITION: NO DISPOSITION GIVEN CALL BY KAREN HELTON 09/28/2003 02:28PM [id number] ADDENDUM: /BAKERY ASSOCIATE documented in this encounter Plan of Treatment Not on filedocumented as of this encounter Visit Diagnoses Not on filedocumented in this encounter
--- OUTSIDE RECORDS SUMMARY | 2022-04-01 13:18 | XMS_ITS | Encounter Summary ---
:1940 [facility] Address [address] [place] [address] Care Team Providers Name Role Phone Unavailable Primary Care Provider Unavailable Encounter Details Date Type Department Care Team Description 07/23/2004 [place] [address] [address] [place] [address] [place] [address] [phone] (Wo rk) Social History Tobacco Use Types [...] 0335 Note Time: 07/23/04 0001 Status: Signed Machinist Linotype: Gretta Saravia MD (Physician) NAME: ALEXANDR SOTELO MR: [id number] ACCT: [id number] VISIT: [id number] DICTATING CLINICIAN: GRETTA SARAVIA MD JOB: [id number] CLINIC PROGRESS NOTE DATE OF VISIT: 07/23/2004 SUBJECTIVE: : 1940. Ooist-gcs-xxgt-old gentleman new to clinic comes in for [...] stuckon appearing papules especially along the left jewish. Also on the left nasal bridge near [...] left medial canthus. Irritated seborrheic keratosis, left jewish, and multiple seborrheic keratoses and solar lentigines. [...] regarding other seborrheic keratoses and solar lentigines. MMB:[id number] C: 07/23/04 16:52 DOCUMENT: [id number] CHBOARD RECEPTIONIST documented in this encounter Plan of Treatment Not on filedocumented as of this encounter Visit Diagnoses Not on filedocumented in this encounter
--- OUTSIDE RECORDS SUMMARY | 2022-04-01 13:18 | XMS_ITS | Encounter Summary ---
:1940 Author Organization [facility] Address [address] [place] [address] Care Team Providers Name Role Phone Unavailable Primary Care Provider Unavailable Encounter Details Date Type Department Care Team Description 06/27/2003 [facility] 6500 Henrique Barrientos MD Endoscopy [address] [place] [id number] [phone] Social History Tobacco Use Types Packs/Day Years Used Date Smoking Tobacco: Never Assessed Sex Assigned at Date Recorded Not on file documented as of this encounter Procedure Notes Henrique Palacios MD - 06/27/2003 12:01 AM CST Procedures signed by Henrique Palacios MD at 06/27/03 2932 Author: Henrique Palacios MD Service: (none) Author Type: Physician Filed: 08/28/10 1840 Note Time: 06/27/03 1510 Status: Signed Weed Sprayer: Henrique Palacios MD (Physician) Patient Name: Mo [...] and oxygen saturation were monitored continuously. The colonoscope(HT062N-4) was introduced through the anus and advanced [...] or nsaids for two weeks. CPT4 Code(s): 85613, Colonoscopy, flexible, proximal to splenic flexure; with removal of tumor(s), polyp(s), or other lesion(s) by snare technique 94350, Colonoscopy, flexible, proximal to splenic flexure; with ablation of tumor(s), polyp(s), or other lesion(s) not amenable to removal by hot biopsy forceps, bipolar cautery or snare technique 70429, 51, Colonoscopy, flexible, proximal to splenic flexure; with biopsy, single or multiple ICD9 Code(s): Henrique Palacios MD Signed Date: 06/27/2003 3:42:21 PM This document has been electronically signed. Note generated on 06/27/2003 3:08:02 PM CC letter to: ISSION SALES ASSOCIATE documented in this encounter Plan of Treatment Not on filedocumented as of this encounter Procedures Procedure Name Priority Date/Time Associated Diagnosis Comme nts SURGICAL PATH, JEFF Routine 06/27/2003 4:34 PM Re sults for this [facility] SALES ASSOCIATE procedure are i n the results section. documented in this encounter Results Pathology Report (06/27/2003 4:34 PM COMMISSION SALES ASSOCIATE) [facility] gist Method Time Signature Surgical SEE TEXT No normal HP CONVERSION Pathology range Comment: Patient: ASHLEIGH, MO Leo ?S URGICAL PATHOLOGY REPORT Pathology # ??[id number] ?Date Obtained: [id number] ? Date Received: [id number] DIAGNOSIS: A) ??Cecum, biopsies: ?1. Adenomatous polyp (tubular edwin jason), 1 fragment. ?2. Hyperplastic (metaplastic) poly p, 3 fragments. B) ??Colon at 35 cm, biopsy: ?- ??Adenomatous polyp (tubular suhail noma). C) ??Colon at 15 cm, biopsy: ?- ??Hyperplastic (metaplastic) arabella yp. ?Elfego Olson M.D. ?(electronic signature) RPW/RPW/cjc Date of Report: 06/28/03 Pathology # ??[id number] ?Date Obtained: [id number] ? Date Received: [id number] ORGAN/TISSUE SITE: ?Cecum/Colon at 35 cm/Colon at [...] / / Volume Laterality 06/27/2003 4:34 PM COMMISSION SALES ASSOCIATE Henrique Palacios MD LAB_1 Performing Organization Address City/State/ZIP Code Phon e Number HP CONVERSION documented in this encounter Visit Diagnoses Not on filedocumented in this encounter
--- OUTSIDE RECORDS SUMMARY | 2022-04-01 13:18 | XMS_ITS | Encounter Summary ---
:1940 Author Organization [facility] Address [address] [place] [address] Care Team Providers Name Role Phone Unavailable Primary Care Provider Unavailable Encounter Details Date Type Department Care Team Description 02/27/2004 Nursing Visit [place] [facility] Jose Antonio Carolina , JORDANABS Medicine [address] [address] [place] [address] [phone] Social History Tobacco Use Types Packs/Day Years Used Date Smoking Tobacco: Never Assessed Sex Assigned at Date Recorded Not on file documented as of this encounter Plan of Treatment Not on filedocumented as of this encounter Visit Diagnoses Not on filedocumented in this encounter
--- OUTSIDE RECORDS SUMMARY | 2022-04-01 13:18 | XMS_ITS | Encounter Summary ---
:1940 Author Organization [facility] Address [address] [place] [address] Care Team Providers Name Role Phone Unavailable Primary Care Provider Unavailable Encounter Details Date Type Department Care Team Description 06/27/2004 Nursing Visit [place] [facility] Jose Antonio Carolina, JOYCE Medicine 6500 [facility] [address] [place] [address] [place] [address] [phone] Social History Tobacco Use Types Packs/Day Years Used Date Smoking Tobacco: Never Assessed Sex Assigned at Date Recorded Not on file documented as of this encounter Last Filed Vital Signs Vital Sign Reading Time Taken Comments Blood Pressure 150/80 06/27/2004 10:56 AM RADIAL DRILL OPERATOR Pulse 76 06/27/2004 10:56 AM RADIAL DRILL OPERATOR Temperature - - Respiratory Rate - - Oxygen Saturation - - Inhaled Oxygen Concentration - - Weight 97 kg (213 lb 13.5 oz) 06/27/2004 10:56 AM C: 97 .00kg RADIAL DRILL OPERATOR Height 177 cm (5' 9.69) 06/27/2004 10:56 AM C: 177.00c m RADIAL DRILL OPERATOR Body Mass Index 30.96 06/27/2004 10:56 AM RADIAL DRILL OPERATOR documented in this encounter Plan of Treatment Not on filedocumented as of this encounter Visit Diagnoses Not on filedocumented in this encounter
--- OUTSIDE RECORDS SUMMARY | 2022-04-01 13:18 | XMS_ITS | Encounter Summary ---
:1940 Author Organization [facility] Address [address] [place] [address] Care Team Providers Name Role Phone Unavailable Primary Care Provider Unavailable Reason for Visit Reason Comments Other Encounter Details Date Type Department Care Team Description 05/28/2004 Telephone [place] [facility] Jose Antonio Rodgers MBBS Other Medicine [address] [address] [place], [place] [address] [phone] Social History Tobacco Use Types Packs/Day Years Used Date Smoking Tobacco: Never Assessed Sex Assigned at Date Recorded Not on file documented as of this encounter [facility] [place] 05/28/2004 12:33 PM CST Phone Note filed by [employer]E [employer] at 08/25/10 1611 Author: [employer] Service: (none) Author Type: (none) Filed: 08/25/10 1611 Note Time: 05/28/04 1233 Status: Signed Brand Representative: Message Center [facility] Dr Jones! would you renew pt depotestosterone [...]
--- OUTSIDE RECORDS SUMMARY | 2022-04-01 13:18 | XMS_ITS | Encounter Summary ---
:1940 Author Organization [facility] Address [address] [place] [address] Care Team Providers Name Role Phone Unavailable Primary Care Provider Unavailable Reason for Visit Reason Comments Other Encounter Details Date Type Department Care Team Description 12/28/2003 Telephone [place] [facility] Jose Antonio Rodgers MBBS Other Medicine [address] [address] [place], [place] [address] [phone] Social History Tobacco Use Types Packs/Day Years Used Date Smoking Tobacco: Never Assessed Sex Assigned at Date Recorded Not on file documented as of this encounter Progress Notes [place], Message - 12/28/2003 2:03 PM CDT Phone Note filed by CommonBond at 08/25/10 0063 Author: CommonBond Service: (none) Author Type: (none) Filed: 08/25/10 3779 Note Time: 12/28/03 1403 Status: Signed 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
--- OUTSIDE RECORDS SUMMARY | 2022-04-01 13:18 | XMS_ITS | Encounter Summary ---
:1940 Author Organization [facility] Address [address] [place] [address] Care Team Providers Name Role Phone Unavailable Primary Care Provider Unavailable Reason for Visit Reason Comments Other Encounter Details Date Type Department Care Team Description 06/27/2004 Telephone [place] [facility] Jose Antonio Rodgers MBBS Other Medicine [address] [address] [place], [place] [address] [phone] Social History Tobacco Use Types Packs/Day Years Used Date Smoking Tobacco: Never Assessed Sex Assigned at Date Recorded Not on file documented as of this encounter Progress Notes [employer], Message - 06/27/2004 12:27 PM CST Phone Note filed by Inaura at 08/25/101647 Author: Inaura Service: (none) Author Type: (none) Filed: 08/25/101647 Note Time: 06/27/04 1227 Status: Signed 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
--- OUTSIDE RECORDS SUMMARY | 2022-04-01 13:18 | XMS_ITS | Encounter Summary ---
:1940 Author Organization [facility] Address [address] [place] [address] Care Team Providers Name Role Phone Unavailable Primary Care Provider Unavailable Reason for Visit Reason Comments Other Encounter Details Date Type Department Care Team Description 09/26/2004 Telephone [place] [facility] Jose Antonio Rodgers MBBS Other Medicine [address] [address] [place], [place] [address] [phone] Social History Tobacco Use Types Packs/Day Years Used Date Smoking Tobacco: Never Assessed Sex Assigned at Date Recorded Not on file documented as of this encounter Progress Notes [employer], Message - 09/26/2004 1:47 PM CDT Phone Note filed by bSafe at 08/25/101823 Author: bSafe Service: (none) Author Type: (none) Filed: 08/25/101823 Note Time: 09/26/047 Status: Signed Special Procedure Tech: Message [employer] Tx! 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 Created on 26Sep2004 1:47pm by KAREN DUNN Acknowledged by JOSE ANTONIO RODGERS on 2:11pm R ENTRY TECHNICIAN documented in this encounter Plan of Treatment Not on filedocumented as of this encounter Visit Diagnoses Not on filedocumented in this encounter
--- OUTSIDE RECORDS SUMMARY | 2022-04-01 13:18 | XMS_ITS | Encounter Summary ---
:1940 Author Organization [facility] Address [address] [place] [address] Care Team Providers Name Role Phone Unavailable Primary Care Provider Unavailable Encounter Details Date Type Department Care Team Description 12/28/2003 Nursing Visit [place] [facility] Jose Antonio Carolina, JORDANABS Medicine [address] [address] [place] [address] [phone] Social History Tobacco Use Types Packs/Day Years Used Date Smoking Tobacco: Never Assessed Sex Assigned at Date Recorded Not on file documented as of this encounter Plan of Treatment Not on filedocumented as of this encounter Visit Diagnoses Not on filedocumented in this encounter
--- OUTSIDE RECORDS SUMMARY | 2022-04-01 13:18 | XMS_ITS | Encounter Summary ---
:1940 Author Organization [facility] Address [address] [place] [address] Care Team Providers Name Role Phone Unavailable Primary Care Provider Unavailable Encounter Details Date Type Department Care Team Description 07/25/2004 Nursing Visit [place] [facility] Jose Antonio Carolina, JORDANABS Medicine [address] [address] [place] [address] [phone] Social History Tobacco Use Types Packs/Day Years Used Date Smoking Tobacco: Never Assessed Sex Assigned at Date Recorded Not on file documented as of this encounter Plan of Treatment Not on filedocumented as of this encounter Visit Diagnoses Not on filedocumented in this encounter
--- OUTSIDE RECORDS SUMMARY | 2022-04-01 13:18 | XMS_ITS | Encounter Summary ---
:1940 Author Organization [facility] Address [address] [place] [address] Care Team Providers Name Role Phone Unavailable Primary Care Provider Unavailable Encounter Details Date Type Department Care Team Description 06/27/2004 Office Visit [place] [facility] Jose Antonio Rodgers MBBS [facility] [address] [place] [address] [phone] Social History Tobacco Use Types Packs/Day Years [...] 0305 Note Time: 06/27/04 0001 Status: Signed Millwright Supervisor: Jose Antonio Rodgers MD (Physician) NAME: ALEXANDR SOTELO MR: [id number] ACCT: [id number] VISIT: [id number] DICTATING CLINICIAN: JOSE ANTONIO RODGERS MD JOB: [id number] CLINIC PROGRESS NOTE DATE OF VISIT: 06/27/2004 [...] moles, 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 Also, there was a growth near his left eye, on the medial side. PLAN: See assessment. MOIRA:[id number] C: 06/28/04 17:59 DOCUMENT: [id number] documented in this encounter Plan of Treatment Not on filedocumented as of this encounter Visit Diagnoses Not on filedocumented in this encounter
--- OUTSIDE RECORDS SUMMARY | 2022-04-01 13:18 | XMS_ITS | Encounter Summary ---
:1940 Author Organization [facility] Address [address] [place] [address] Care Team Providers Name Role Phone Unavailable Primary Care Provider Unavailable Encounter Details Date Type Department Care Team Description 07/31/2003 PN Conversion Only [facility] [address] [place] [address] Social History Tobacco Use Types Packs/Day Years Used Date Smoking Tobacco: Never Assessed Sex Assigned at Date Recorded Not on file documented as of this encounter Progress Notes Phone Note, Clinician - 07/31/2003 12:01 AM CST Phone Note filed by Clinician Phone Note at 08/26/101337 Author: Clinician Phone Note Service: (none) Author Type: Resource Filed: 08/26/101337 Note Time: 07/31/03 0001 Status: Signed Health Assistant: Clinician Phone Note (Resource) TO: JOSE ANTONIO CAROLINA FROM: KAREN HELTON [phone] 07/31/03 * PROVIDER MESSAGE: FYI *NO * 02:08PM * INPUT NECESSARY * MESSAGE: blood pressure 106/62 right * HOME PHONE:[phone] * arm at 1:11pm. bp 110/70 left arm * CONTACT PHONE:[phone] * at 1:13pm.radial pulse was 64 and regular.pt rested 5 minutes b/4 readings obtained. SUBJECTIVE: ALLERGIES/SENSITIVITIES... 07/31/03 CURRENT MEDICATIONS... 07/31/03 PERTINENT PAST HISTORY... 07/31/03 WEIGHT: ASSESSMENT: bp readings 07/31/2003 PLAN: DISPOSITION: NO DISPOSITION GIVEN CALL BY KAREN HELTON 07/31/2003 02:04PM [id number] ADDENDUM: <> 08/02/2003 02:24PM by CONSTANTINO FRANZ RN: PEr DR. carolina, above noted. Phone Note, Clinician - 07/20/2003 12:01 AM CST Phone Note filed by Clinician Phone Note at 08/26/10 9414 Author: Clinician Phone Note Service: (none) Author Type: Resource Filed: 08/26/10 2353 Note Time: 07/20/03 0001 Status: Signed Health Assistant: Clinician Phone Note (Resource) TO: JOSE ANTONIO CAROLINA FROM: DEVANG DUKES RN [phone] * PROVIDER MESSAGE: ROUTINE * 07/20/03 12:28PM * *WITHIN 4 HOURS * MESSAGE: Pt calling and he has 2 * HOME PHONE:[phone] * concerns: 1) He had a Colonoscopy * CONTACT PHONE:[phone] * several week s ago at [facility] * PHARMACY: [phone] Pk * Hosp and would like to [...] CALL BY DEVANG DUKES RN 07/20/2003 12:25PM [phone] ADDENDUM: <> 07/20/2003 01:51PM by CONSTANTINO BOONE [...] signed by Nadira Abdi MD at 07/23/03 4460 Author: Clinician Phone Note Service: (none) Author Type: Resource Filed: 07/31/03 0000 Note Time: 07/03/03 0001 Status: Signed Health Assistant: Clinician Phone Note (Resource) - TREATING PROVIDER: NADIRA EJNN * HOME PHONE:[phone] * SUBJECTIVE: ALLERGIES/SENSITIVITIES... CURRENT MEDICATIONS... PERTINENT PAST HISTORY... ASSESSMENT: Rx refill DISPOSITION: NO DISPOSITION GIVEN PLAN: [facility] COMMENTS... Per for ; ok for Viagra 100mg tablets #6 x2 refills. This was faxed to [facility] at [phone] by Lacy Pierson CALL BY LEAH OROZCO 07/03/2003 11:41AM [phone] ADDENDUM: Phone Note, Clinician - 06/13/2003 12:01 AM CST Phone Note filed by Clinician Phone Note at 08/26/10 4360 Author: Clinician Phone Note Service: (none) Author Type: Resource Filed: 08/26/101312 Note Time: 06/13/03 0001 Status: Signed Health Assistant: Clinician Phone Note (Resource) TO: JOSE ANTONIO CAROLINA FROM: VAUGHN FISHER [phone] 06/13/03 * PROVIDER MESSAGE: ROUTINE * 03:47PM * *WITHIN 4 HOURS * MESSAGE: Pt calling because he would * HOME PHONE:[phone] * like a refill of Norvasc 2.5mg. He * CONTACT PHONE:[phone] * uses [facility] and their number is [phone]. Thank You! SUBJECTIVE: ALLERGIES/SENSITIVITIES... CURRENT MEDICATIONS... PERTINENT PAST HISTORY... WEIGHT: ASSESSMENT: Refill PLAN: DISPOSITION: NO DISPOSITION GIVEN CALL BY VAUGHN FISHER 06/13/2003 03:45PM [phone] ADDENDUM: <> 06/14/2003 10:12AM by CONSTANTINO BOONE RN: Per Dr Romano for [facility] Cueva to fill Norvasc 2.5mg 1 po QD #30 with 3 refills. Rx called to above pharmacy. I left message for pt. Phone Note, Clinician - 05/25/2003 12:01 AM CST Phone Note filed by Clinician Phone Note at 08/26/10 7926 Author: Clinician Phone Note Service: (none) Author Type: Resource Filed: 08/26/101302 Note Time: 05/25/03 0001 Status: Signed Health Assistant: Clinician Phone Note (Resource) TO: JOSE ANTONIO CAROLINA FROM: OLIVERIO LENTZ RN [phone] * PROVIDER MESSAGE: ROUTINE * 05/25/03 08:35AM * *WITHIN 4 HOURS * MESSAGE: Mo is calling for his * HOME PHONE:[phone] * lab results from yesterday 05/24. * CONTACT PHONE:[phone] * SUBJECTIVE: * detailed message is ok * ALLERGIES/SENSITIVITIES... CURRENT MEDICATIONS... PERTINENT PAST HISTORY... WEIGHT: ASSESSMENT: Lab results PLAN: DISPOSITION: NO DISPOSITION GIVEN CALL BY OLIVERIO LENTZ RN 05/25/2003 08:34AM [phone] ADDENDUM: <> 05/25/2003 09:46AM by SARAH VALENZUELA: Per Lorena Carolina: message left in detail about lab work. Jose Antonio Carolina MBBS - 05/23/2003 12:01 AM CST Progress Notes signed by JOYCE Stover at 04/24/04 7934 Author: Jose Antonio Carolina MD Service: (none) Author Type: Physician Filed: 08/28/10 1801 Note Time: 05/23/03 0001 Status: Signed Health Assistant: Jose Antonio Carolina MD (Physician) NAME: MO DALEY MR: [id number] ACCT: [id number] VISIT: [id number] DICTATING CLINICIAN: JOSE ANTONIO CAROLINA MD JOB: [id number] CLINIC PROGRESS NOTE DATE OF VISIT: 05/23/2003 [...] hematocrit, hemoglobin, we will discuss with the spice miller hammer mill, to rule out any possibility of hemochromatosis. PLAN: See assessment. TT: CT: MOIRA:[id number] C: 05/24/03 16:25 DOCUMENT: [id number] OR PATROL AGENT Phone Note, Clinician - 05/21/2003 12:01 AM CST Phone Note signed by JOYCE Stover at 04/22/04 0954 Author: Clinician Phone Note Service: (none) Author Type: Resource Filed: 07/31/03 0000 Note Time: 05/21/03 0001 Status: Signed Health Assistant: Clinician Phone Note (Resource) - TREATING PROVIDER: JOSE ANTONIO CAROLINA SUBJECTIVE: * HOME PHONE:[phone] * ALLERGIES/SENSITIVITIES... CURRENT MEDICATIONS... PERTINENT PAST HISTORY... ASSESSMENT: lab letter DISPOSITION: NO [facility]ITION [facility]... Per Dr. carolina, please make an appointment to discuss abnormal blood work. CALL BY CONSTANTINO FRANZ RN 05/21/2003 02:30PM [phone] ADDENDUM: documented in this encounter Plan of Treatment Not on filedocumented as of this encounter Visit Diagnoses Not on filedocumented in this encounter
--- OUTSIDE RECORDS SUMMARY | 2022-04-01 13:18 | XMS_ITS | Encounter Summary ---
:1940 Author Organization [facility] Address [address] [place] [address] Care Team Providers Name Role Phone Unavailable Primary Care Provider Unavailable Encounter Details Date Type Department Care Team Description 05/24/2003 PN Conversion Only [place] [facility] Jose Antonio Wells, JOYCE [address] [employer] [facility] 6500 [place] [address] [place] [address] (Wo rk) Social History Tobacco Use Types Packs/Day Years Used Date Smoking Tobacco: Never Assessed Sex Assigned at Date Recorded Not on file documented as of this encounter Plan of Treatment Not on filedocumented as of this encounter Procedures Procedure Name Priority Date/Time Associated Diagnosis Comme nts COMPLETE BLOOD Routine 05/24/2003 9:51 AM Results for this COUNT-W/DIFF HOSPICE CLINICAL MANAGER procedure are i n the results section. documented in this encounter Results (ABNORMAL) Complete Blood Count-W/Diff (05/24/2003 9:51 AM HOSPICE CLINICAL MANAGER) [facility] gist Method Time Signature RDW 12.6 11.0 [...] - HP CONVERSION Hemoglobin Conc 36.5 gm/dL [facility] Specimen (Source) Anatomical Collection Method Collection Time Re ceived Time Location / / Volume Laterality 05/24/2003 9:51 AM HOSPICE CLINICAL MANAGER Jose Antonio COOK LAB_1 Performing Organization Address City/State/ZIP Code Phon e Number HP CONVERSION documented in this encounter Visit Diagnoses Not on filedocumented in this encounter
--- OUTSIDE RECORDS SUMMARY | 2022-04-01 13:18 | XMS_ITS | Encounter Summary ---
:1940 Author Organization [facility] Address [address] [place] [address] Care Team Providers Name Role Phone Unavailable Primary Care Provider Unavailable Encounter Details Date Type Department Care Team Description 11/27/2003 Nursing Visit [place] [facility] Jose Antonio Carolina, JORDANABS Medicine [address] [address] [place] [address] [phone] Social History Tobacco Use Types Packs/Day Years Used Date Smoking Tobacco: Never Assessed Sex Assigned at Date Recorded Not on file documented as of this encounter Plan of Treatment Not on filedocumented as of this encounter Visit Diagnoses Not on filedocumented in this encounter
--- OUTSIDE RECORDS SUMMARY | 2022-04-01 13:18 | XMS_ITS | Encounter Summary ---
:1940 Author Organization [facility] Address [address] [place] [address] Care Team Providers Name Role Phone Unavailable Primary Care Provider Unavailable Encounter Details Date Type Department Care Team Description 09/26/2004 Nursing Visit [place] [facility] Juan Antonio, Caleb martínez MD Medicine [address] 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
--- OUTSIDE RECORDS SUMMARY | 2022-04-01 13:18 | XMS_ITS | Encounter Summary ---
:1940 Author Organization [facility] Address [address] [place] [address] Care Team Providers Name Role Phone Unavailable Primary Care Provider Unavailable Encounter Details Date Type Department Care Team Description 08/29/2004 Nursing Visit [place] [facility] Juan Antonio, Caleb martínez MD Medicine [address] [place] [address] [facility] [address] [place] [address] [place], [place] [phone] (Wo rk) Social History Tobacco Use Types [...]
--- OUTSIDE RECORDS SUMMARY | 2022-04-01 13:18 | XMS_ITS | Encounter Summary ---
:1940 Author Organization [facility] Address [address] [place] [address] Care Team Providers Name Role Phone Unavailable Primary Care Provider Unavailable Encounter Details Date Type Department Care Team Description 03/26/[address] [facility] [place] [address] [facility] [address] [place] [address] [place] [phone] [address] Social History Tobacco Use Types Packs/Day Years Used Date Smoking Tobacco: Never Assessed Sex Assigned at Date Recorded Not on file documented as of this encounter Plan of Treatment Not on filedocumented as of this encounter Visit Diagnoses Not on filedocumented in this encounter
--- OUTSIDE RECORDS SUMMARY | 2022-04-01 13:18 | XMS_ITS | Encounter Summary ---
:1940 Author Organization [facility] Address [address] [place] [address] Care Team Providers Name Role Phone Unavailable Primary Care Provider Unavailable Encounter Details Date Type Department Care Team Description 01/29/2004 Nursing Visit [place] [facility] Jose Antonio Carolina , JORDANABS Medicine [address] [address] [place] [address] [phone] Social History Tobacco Use Types Packs/Day Years Used Date Smoking Tobacco: Never Assessed Sex Assigned at Date Recorded Not on file documented as of this encounter Plan of Treatment Not on filedocumented as of this encounter Visit Diagnoses Not on filedocumented in this encounter
--- OUTSIDE RECORDS SUMMARY | 2022-04-01 13:18 | XMS_ITS | Encounter Summary ---
:1940 Author Organization [facility] Address [address] [place] [address] Care Team Providers Name Role Phone Unavailable Primary Care Provider Unavailable Reason for Visit Reason Comments Other Encounter Details Date Type Department Care Team Description 01/29/2004 Telephone [place] [facility] Jose Antonio Rodgers MBBS Other Medicine [address] [address] [place], [place] [address] [phone] Social History Tobacco Use Types Packs/Day Years Used Date Smoking Tobacco: Never Assessed Sex Assigned at Date Recorded Not on file documented as of this encounter Progress Notes [place], Message - 01/29/2004 1:45 PM CDT Phone Note filed by [employer] at 08/25/10 1420 Author: [employer] Service: (none) Author Type: (none) Filed: 08/25/10 1420 Note Time: 01/29/04 1345 Status: Signed 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
--- OUTSIDE RECORDS SUMMARY | 2022-04-01 13:18 | XMS_ITS | Encounter Summary ---
:1940 Author Organization [facility] Address [address] [place] [address] Care Team Providers Name Role Phone Unavailable Primary Care Provider Unavailable Encounter Details Date Type Department Care Team Description 08/29/2003 PN Conversion Only [place] [address] [address] [place] [address] Social History Tobacco Use Types Packs/Day Years Used Date Smoking Tobacco: Never Assessed Sex Assigned at Date Recorded Not on file documented as of this encounter Plan of Treatment Not on filedocumented as of this encounter Visit Diagnoses Not on filedocumented in this encounter
--- OUTSIDE RECORDS SUMMARY | 2022-04-01 13:18 | XMS_ITS | Encounter Summary ---
:1940 Author Organization [facility] Address [address] [place] [address] Care Team Providers Name Role Phone Unavailable Primary Care Provider Unavailable Reason for Visit Reason Comments Other Encounter Details Date Type Department Care Team Description 02/27/2004 Telephone [place] [facility] Jose Antonio Rodgers MBBS Other Medicine [address] [address] [place], [place] [address] [phone] Social History Tobacco Use Types Packs/Day Years Used Date Smoking Tobacco: Never Assessed Sex Assigned at Date Recorded Not on file documented as of this encounter Progress Notes [place], Message - 02/27/2004 9:52 AM CDT Phone Note filed by [employer] at 08/25/10 0827 Author: [employer] Service: (none) Author Type: (none) Filed: 08/25/10 5596 Note Time: 02/27/04951 Status: Signed Office Support: [facility] blood pressure readings 124/80 right arm at [...]
--- OUTSIDE RECORDS SUMMARY | 2022-04-01 13:18 | XMS_ITS | Encounter Summary ---
:1940 Author Organization [facility] Address [address] [place] [address] Care Team Providers Name Role Phone Unavailable Primary Care Provider Unavailable Reason for Visit Reason Comments Other Encounter Details Date Type Department Care Team Description 03/26/2004 Telephone [place] [facility] Jose Antonio Rodgers MBBS Other Medicine [address] [address] [place], [place] [address] [phone] Social History Tobacco Use Types Packs/Day Years Used Date Smoking Tobacco: Never Assessed Sex Assigned at Date Recorded Not on file documented as of this encounter Progress Notes [place], Message - 03/26/2004 1:22 PM CST Phone Note filed by [employer] at 08/25/10 910 Author: [employer] Service: (none) Author Type: (none) Filed: 08/25/101512 Note Time: 03/26/04 1322 Status: Signed Humidifier Operator: Message [employer] blood pressure 134/76 right arm at 1205.radial [...]
--- OUTSIDE RECORDS SUMMARY | 2022-04-01 13:18 | XMS_ITS | Encounter Summary ---
:1940 Author Organization [facility] Address [address] [place] [address] Care Team Providers Name Role Phone Unavailable Primary Care Provider Unavailable Encounter Details Date Type Department Care Team Description 09/26/2004 Office Visit [place] [facility] Jose Antonio Rodgers MBBS Medicine [address] [place] [id number] [phone] Social History Tobacco Use Types Packs/Day Years [...] 0451 Note Time: 09/26/04 0001 Status: Signed Reinspector: Jose Antonio Rodgers MD (Physician) NAME: MO WRIGHT MR: [id number] ACCT: VISIT: [id number] DICTATING CLINICIAN: JOSE ANTONIO RODGERS MD JOB: [id number] CLINIC PROGRESS NOTE DATE OF VISIT: 09/26/2004 [...] the ? that he gets q. monthly. MOIRA:[id number] C: 10/09/04 10:35 DOCUMENT: [id number] documented in this encounter Plan of Treatment Not on filedocumented as of this encounter Visit Diagnoses Not on filedocumented in this encounter
--- OUTSIDE RECORDS SUMMARY | 2022-04-01 13:18 | XMS_ITS | Encounter Summary ---
:1940 Author Organization [facility] Address [address] [place] [address] Care Team Providers Name Role Phone Unavailable Primary Care Provider Unavailable Encounter Details Date Type Department Care Team Description 08/29/2003 PN Conversion Only [place] [address] [address] [place] [address] Social History Tobacco Use Types Packs/Day Years Used Date Smoking Tobacco: Never Assessed Sex Assigned at Date Recorded Not on file documented as of this encounter Plan of Treatment Not on filedocumented as of this encounter Visit Diagnoses Not on filedocumented in this encounter
--- OUTSIDE RECORDS SUMMARY | 2022-04-01 13:18 | XMS_ITS | Encounter Summary ---
:1940 Author Organization [facility] Address [address] [place] [address] Care Team Providers Name Role Phone Unavailable Primary Care Provider Unavailable Encounter Details Date Type Department Care Team Description 06/27/2004 PN Conversion Only PENTECOSTALISM CONVERSION Angel Carolina MBBS [address] [place] [address] (Wo rk) Social History Tobacco Use Types Packs/Day Years Used Date Smoking Tobacco: Never Assessed Sex Assigned at Date Recorded Not on file documented as of this encounter Plan of Treatment Not on filedocumented as of this encounter Procedures Procedure Name Priority Date/Time Associated Diagnosis Comme nts GLUCOSE Routine 06/27/2004 11:56 AM Results for this LEAD COATER procedure are i n the results section. LIPID PANEL AND Routine 06/27/2004 11:56 AM Resul ts for this DIRECT LDL(IF LEAD COATER procedure are in NEEDED) the results section. COMPLETE BLOOD Routine 06/27/2004 11:56 AM Result s for this COUNT-W/DIFF LEAD COATER procedure are i n the results section. PROSTATIC SPECIFIC Routine 06/27/2004 11:56 AM Re sults for this ANTIGEN(SCREEN) LEAD COATER procedure ar e in the results section. documented in this encounter Results (ABNORMAL) Complete Blood Count-W/Diff (06/27/2004 11:56 AM LEAD COATER) [facility] Method Time Signature White Blood Cell 5.8 [...] - HP CONVERSION Hemoglobin Conc 36.5 gm/dL [place] RDW 12.8 11.0 - HP CONVERSION 15.0 [...] / / Volume Laterality 06/27/2004 11:56 AM LEAD COATER Jose Antonio [facility]_1 Performing Organization Address City/State/ZIP Code Phon e Number HP CONVERSION (ABNORMAL) Glucose (06/27/2004 11:56 AM LEAD COATER) P athologist Signature Lab Glucose 104 (H) 60 - 100 HP CONVERSION mg/dL Specimen (Source) Anatomical Collection Method Collection Time Re ceived Time Location / / Volume Laterality 06/27/2004 11:56 AM LEAD COATER Jose Antonio [facility] Performing Organization Address City/State/ZIP Code Phon e Number HP CONVERSION (ABNORMAL) Lipid Panel and Direct LDL(If Needed) (06/27/2004 11:56 AM LEAD COATER) Patholo gist Method Time Signature Cholesterol/HDL 6.2 [...] / / Volume Laterality 06/27/2004 11:56 AM LEAD COATER Jose Antonio [facility] Performing Organization Address City/[facility]/ZIP [facility] Phon e Number HP CONVERSION Prostatic Specific Antigen (Screen) (06/27/2004 11:56 AM LEAD COATER) P athologist Signature Prostate 0.9 0.0 - 4.0 HP CONVERSION Specific ng/mL Antigen Specimen (Source) Anatomical Collection Method Collection Time Re ceived Time Location / / Volume Laterality 06/27/2004 11:56 AM LEAD COATER Jose Antonio [facility] Performing Organization Address [facility] Phon e Number HP CONVERSION documented in this encounter Visit Diagnoses Not on filedocumented in this encounter
--- OUTSIDE RECORDS SUMMARY | 2022-04-01 13:18 | XMS_ITS | Encounter Summary ---
:1940 Author Organization [facility] Address [address] [place] [address] Care Team Providers Name Role Phone Unavailable Primary Care Provider Unavailable Reason for Visit Reason Comments Other Encounter Details Date Type Department Care Team Description 08/29/2004 Telephone [facility], Message Other [address] [place] [address] Social History Tobacco Use Types Packs/Day Years Used Date Smoking Tobacco: Never Assessed Sex Assigned at Date Recorded Not on file documented as of this encounter Progress Notes Marie Mcgill - 08/29/2004 10:20 AM CDT Phone Note filed by Marie Mcgill RN at 08/25/101753 Author: Marie Mcgill RN Service: (none) Author Type: (none) Filed: 08/25/101753 Note Time: 08/29/04 1020 Status: Signed Base Engineer: Yeny Conversion BP today was 152/80 with large cuff sitting down right arm. Created on 29Aug2004 10:20am by MARIE MCGILL On 19Sep2004 9:24am VIKTORIYA RODGERS wrote: pt needs to be seen b/c of high bp Acknowledged by VIKTORIYA RODGERS on 9:24am On 19Sep2004 9:48am LUZMARIA BELLAMY wrote: Left message for patient to call for an appt. Acknowledged by LUZMARIA BELLAMY on 9:48am ICAL RESEARCH NURSE COORDINATOR documented in this encounter Plan of Treatment Not on filedocumented as of this encounter Visit Diagnoses Not on filedocumented in this encounter
--- OUTSIDE RECORDS SUMMARY | 2022-04-01 13:18 | XMS_ITS | Encounter Summary ---
:1940 Author Organization [facility] Address [address] [place] [address] Care Team Providers Name Role Phone Unavailable Primary Care Provider Unavailable Encounter Details Date Type Department Care Team Description 11/27/2003 PN Conversion Only [place] [address] [address] [place] [address] Social History Tobacco Use Types Packs/Day Years Used Date Smoking Tobacco: Never Assessed Sex Assigned at Date Recorded Not on file documented as of this encounter Plan of Treatment Not on filedocumented as of this encounter Visit Diagnoses Not on filedocumented in this encounter
--- OUTSIDE RECORDS SUMMARY | 2022-04-01 13:18 | XMS_ITS | Encounter Summary ---
:1940 Author Organization [facility] Address [address] [place] [address] Care Team Providers Name Role Phone Unavailable Primary Care Provider Unavailable Encounter Details Date Type Department Care Team Description 05/28/2004 Nursing Visit [place] [facility] Jose Antonio Carolina, JORDANABS Medicine [address] [address] [place] [address] [phone] Social History Tobacco Use Types Packs/Day Years Used Date Smoking Tobacco: Never Assessed Sex Assigned at Date Recorded Not on file documented as of this encounter Plan of Treatment Not on filedocumented as of this encounter Visit Diagnoses Not on filedocumented in this encounter
--- OUTSIDE RECORDS SUMMARY | 2022-04-01 13:18 | XMS_ITS | Encounter Summary ---
:1940 Author Organization [facility] Address [address] [place] [address] Care Team Providers Name Role Phone Unavailable Primary Care Provider Unavailable Encounter Details Date Type Department Care Team Description 03/24/2004 PN Conversion Only [place] [address] [address] [place] [address] Social History Tobacco Use Types Packs/Day Years Used Date Smoking Tobacco: Never Assessed Sex Assigned at Date Recorded Not on file documented as of this encounter Plan of Treatment Not on filedocumented as of this encounter Visit Diagnoses Not on filedocumented in this encounter
--- OUTSIDE RECORDS SUMMARY | 2022-04-01 13:18 | XMS_ITS | Encounter Summary ---
:1940 Author Organization [facility] Address [address] [place] [address] Care Team Providers Name Role Phone Unavailable Primary Care Provider Unavailable Reason for Visit Reason Comments Other Encounter Details Date Type Department Care Team Description 04/23/2004 Telephone [place] [facility] Jose Antonio Rodgers MBBS Other Medicine [address] [address] [place], [place] [address] [phone] Social History Tobacco Use Types Packs/Day Years Used Date Smoking Tobacco: Never Assessed Sex Assigned at Date Recorded Not on file documented as of this encounter Progress Notes [place], Message - 04/23/2004 12:52 PM CST Phone Note filed by [employer] at 08/25/10 2978 Author: [employer] Service: (none) Author Type: (none) Filed: 08/25/10 1538 Note Time: 04/23/04 1252 Status: Signed Strand Buncher Fine Wire: [facility] blood pressure 118/70 right arm at [...]
--- OUTSIDE RECORDS SUMMARY | 2022-04-01 13:19 | XMS_ITS | Encounter Summary ---
:1940 Author Organization [facility] Address [address] [place] [address] Care Team Providers Name Role Phone Unavailable Primary Care Provider Unavailable Encounter Details Date Type Department Care Team Description 08/27/1989 - 08/30/1989 Hospital Encounter ORTHODOXY CONVERSION Social History Tobacco Use Types Packs/Day [...] Default Interface Order (08/26/1989 1:46 PM CDT) [facility] Method Time Signature Surgical See Detail [...]
--- OUTSIDE RECORDS SUMMARY | 2022-04-01 13:19 | XMS_ITS | Encounter Summary ---
:1940 Author Organization [facility] Address [address] [place] [address] Care Team Providers Name Role Phone Unavailable Primary Care Provider Unavailable Encounter Details Date Type Department Care Team Description 05/17/2003 PN Conversion Only [place] [facility] Marques Rodgers MBBS Medicine [address] [id number] (Wo rk) Social History Tobacco Use Types [...] 1754 Note Time: 05/17/03 0001 Status: Signed Health Assistant: Jose Antonio Rodgers MD (Physician) NAME: MO SOTELO MR: [id number] ACCT: [id number] VISIT: [id number] DICTATING CLINICIAN: JOSE ANTONIO RODGERS MD JOB: [id number] CLINIC PROGRESS NOTE DATE OF VISIT: 05/17/2003 [...] 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 Patient lives alone and is a [...] because of the family history. TT: CT: MOIRA:[id number] C: 05/17/03 23:01 DOCUMENT: [id number] INE SOLE LEVELER Phone Note, Clinician - 05/15/2003 12:01 AM CST Phone Note signed by JOYCE Stover at 04/21/04 1408 Author: Clinician Phone Note Service: (none) Author Type: Resource Filed: 05/17/03 0000 Note Time: 05/15/03 0001 Status: Signed Health Assistant: Clinician Phone Note (Resource) - TREATING PROVIDER: JOSE ANTONIO RODGERS SUBJECTIVE: * HOME PHONE:[phone] * ALLERGIES/SENSITIVITIES... CURRENT MEDICATIONS... PERTINENT PAST HISTORY... ASSESSMENT: Rx refill DISPOSITION: NO [facility]... Per ; ok for Norvasc 2.5mg tablets #30 x1 refill. This was called into [facility] at [phone] by Bere Clemente CALL BY LEAH OROZCO 05/15/2003 01:48PM [phone] ADDENDUM: INE SOLE LEVELER Phone Note, Clinician - 01/02/2003 12:01 AM CDT Phone Note signed by JOYCE Stover at 03/31/04 0813 Author: Clinician Phone Note Service: (none) Author Type: Resource Filed: 05/17/03 0000 Note Time: 01/02/03 0001 Status: Signed Health Assistant: Clinician Phone Note (Resource) TO: JOSE ANTONIO RODGERS FROM: CARLOS SELF [id number] 01/02/03 * PROVIDER MESSAGE: ROUTINE * 11:43AM * *WITHIN 4 HOURS * MESSAGE: pt filled his viagra, * HOME PHONE:[phone] * noticed that there were no refills * CONTACT PHONE:[phone] * left. He woul d like a new rx * PHARMACY: [facility] * called in for a year if possible. SUBJECTIVE: ALLERGIES/SENSITIVITIES... NKA 01/02/03 CURRENT MEDICATIONS... NORVASC 2.5MG, VIAGRA 50MG 01/02/03 PERTINENT PAST HISTORY... 01/02/03 WEIGHT: ASSESSMENT: viagra PLAN: DISPOSITION: NO DISPOSITION GIVEN CALL BY CARLOS SELF 01/02/2003 11:41AM [id number] ADDENDUM: <> 01/02/2003 02:59PM by MARYJO MCGILL BICYCLE RACER: Per Dr Rodgers:Viagra 100mg q prn 36 with 1 yr of rfs.//Pharm called and pt notified. INE SOLE LEVELER Phone Note, Clinician - 11/30/2002 12:01 AM CDT Phone Note signed by Sanford Romano MD at 01/08/03 2046 Author: Clinician Phone Note Service: (none) Author Type: Resource Filed: 05/17/03 0000 Note Time: 11/30/02 0001 Status: Signed Health Assistant: Clinician Phone Note (Resource) - TREATING PROVIDER: SANFORD ROMANO SUBJECTIVE: * HOME PHONE:[phone] * ALLERGIES/SENSITIVITIES... CURRENT MEDICATIONS... PERTINENT PAST HISTORY... ASSESSMENT: Rx refill DISPOSITION: NO DISPOSITION GIVEN PLAN: [facility] COMMENTS... Per for ; ok for Viagra 50mg tablets x2 refills. This was faxed to [facility] at [phone] by Maura Mcmillan CALL BY LEAH OROZCO 11/30/2002 11:50AM ADDENDUM: Jose Antonio Joel MBBS - 10/25/2002 12:01 AM CDT Progress Notes signed by JOYCE Stover at 07/18/03 1135 Author: Jose Antonio Rodgers MD Service: (none) Author Type: Physician Filed: 08/28/10 1432 Note Time: 10/25/02 0001 Status: Signed Health Assistant: Jose Antonio Rodgers MD (Physician) NAME: MO SOTELO MR: [id number] ACCT: [id number] VISIT: [id number] DICTATING CLINICIAN: JOSE ANTONIO RODGERS MD JOB: [id number] CLINIC PROGRESS NOTE DATE OF VISIT: 10/25/2002 [...] for amoxicillin. PLAN: See assessment. TT: CT: MOIRA:[id number] C: 10/26/02 05:16 DOCUMENT: [id number] INE SOLE LEVELER Phone Note, Clinician - 10/10/2002 12:01 AM CDT Phone Note filed by Clinician Phone Note at 08/26/10 1125 Author: Clinician Phone Note Service: (none) Author Type: Resource Filed: 08/26/10 1125 Note Time: 10/10/02 0001 Status: Signed Health Assistant: Clinician Phone Note (Resource) - TREATING PROVIDER: JOSE ANTONIO RODGERS - PHARMACY: [phone] [facility] * HOME PHONE:[phone] * SUBJECTIVE: PATIENT COMPLAINS OF... rx refill ALLERGIES/SENSITIVITIES... CURRENT MEDICATIONS... PERTINENT PAST HISTORY... ASSESSMENT: rx refill DISPOSITION: NON-URGENT PLAN: Verbalizes understanding and agrees with phone care recommendation MISC COMMENTS... Per Dr Rodgers-refill request for Norvasc 2.5 mg, 1 po qd, qty 30, appro bharath x3. Request fax[facility] to [facility] @ [phone] on . CALL BY MARYJO CHILD 10/10/2002 03:03PM ADDENDUM: INE SOLE LEVELER documented in this encounter Plan of Treatment Not on filedocumented as of this encounter Visit Diagnoses Not on filedocumented in this encounter
--- OUTSIDE RECORDS SUMMARY | 2022-04-01 13:19 | XMS_ITS | Encounter Summary ---
:1940 Author Organization [facility] Address [address] [place] [address] Care Team Providers Name Role Phone Unavailable Primary Care Provider Unavailable Encounter Details Date Type Department Care Team Description 09/11/2002 PN Conversion Only [facility] [address] [place] [address] Social History Tobacco Use Types [...] 0000 Note Time: 07/18/02 0001 Status: Signed Production Team Manager: Clinician Phone Note (Resource) - TREATING PROVIDER: JOSE ANTONIO CAROLINA SUBJECTIVE: * HOME PHONE:[phone] * ALLERGIES/SENSITIVITIES... CURRENT MEDICATIONS... PERTINENT PAST HISTORY... ASSESSMENT: Rx refill DISPOSITION: NO DISPOSITION GIVEN PLAN: [facility]... Per for ; ok for Viagra 50MG Tablet #6 with no additional refills. This was faxed to [facility] at [phone] by Lacy Pierson CALL BY LEAH OROZCO 07/18/2002 12:24PM ADDENDUM: RNAL COMMUNICATIONS INTERN Jose Antonio Carolina MBBS - 07/18/2002 12:01 AM CST Progress Notes signed by JOYCE Stover at 11/23/02 1056 Author: Jose Antonio Carolina MD Service: (none) Author Type: Physician Filed: 08/28/10 1257 Note Time: 07/18/02 0001 Status: Signed Production Team Manager: Jose Antonio Carolina MD (Physician) NAME: MO DALEY MR: [id number] ACCT: [id number] VISIT: [id number] DICTATING CLINICIAN: JOSE ANTONIO CAROLINA MD JOB: [id number] CLINIC PROGRESS NOTE DATE OF VISIT: 07/18/2002 SUBJECTIVE: : 1940. [id number]. Mo is here for a follow-up on [...] to follow-up within three months. TT: CT: [facility]:[id number] C: 07/19/02 06:39 DOCUMENT: [id number] Jose Antonio Carolina MBBS - 06/20/2002 12:01 AM CST Progress Notes signed by at 06/25/02 1537 Author: Jose Antonio Carolina MD Service: (none) Author Type: Physician Filed: 08/28/10 1223 Note Time: 06/20/02 0001 Status: Signed Production Team Manager: Jose Antonio Carolina MD (Physician) IMPRESSION: Hypertension. [...] today. 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 TT: CT: [facility]:[id number] C: 06/20/02 12:41 DOCUMENT: [id number] RNAL COMMUNICATIONS INTERN Jose Antonio Carolina MBBS - 06/09/2002 12:01 AM CST Progress Notes signed by at 06/25/02 4661 Author: Jose Antonio Carolina MD Service: (none) Author Type: Physician Filed: 08/28/10 1208 Note Time: 06/09/02 0001 Status: Signed Production Team Manager: Jose Antonio Carolina MD (Physician) IMPRESSION: Borderline [...] his PSA. PLAN: See assessment. TT: CT: [facility]:[id number] C: 06/09/02 14:04 DOCUMENT: [id number] RNAL COMMUNICATIONS INTERN Conversion, [facility] - 03/15/2002 12:01 AM CST Phone Note signed by at 03/15/02 0906 Author: Yeny Samuels Service: (none) Author Type: (none) Filed: 08/28/10 1008 Note Time: 03/15/02 0001 Status: Signed Production Team Manager: Yeny Samuels IMPRESSION: regarding Viagra refill SUBJECTIVE: ALLERGIES/SENSITIVITIES... * HOME PHONE:[phone] * CURRENT MEDICATIONS... PERTINENT PAST HISTORY... ASSESSMENT: regarding Viagra refill DISPOSITION: NO DISPOSITION GIVEN PLAN: [facility] [place]... Per Dr. Romano please call in Viagra 50mg #6 with 3 refills. Info called to [facility] [phone]. CALL BY KATHY SUTHERLAND LPN 03/15/2002 09:05AM ADDENDUM: RNAL COMMUNICATIONS INTERN Toi Alegria MD - 02/06/2002 12:01 AM CDT Progress Notes signed by at 05/27/02 1851 Author: Toi Alegria MD Service: (none) Author Type: Physician Filed: 08/28/10 0914 Note Time: 02/06/02 0001 Status: Signed Production Team Manager: Toi Alegria MD (Physician) IMPRESSION: Large inflamed [...] basis. TT: CT: CC: JAILENE ROD MD [facility]:[id number] C: DOCUMENT: [id number] RNAL COMMUNICATIONS INTERN Conversion, [facility] - 02/06/2002 12:01 AM CDT Progress Notes signed by at 07/01/02 0001 Author: Yeny Samuels Service: (none) Author Type: (none) Filed: 08/28/10 0914 Note Time: 02/06/022016 Status: Signed Production Team Manager: Yeny Samuels IMPRESSION: Sebaceous cyst. SUBJECTIVE: Mo [...] Setup with surgery to remove. TT: CT: [facility]:[id number] C: DOCUMENT: [id number] RNAL COMMUNICATIONS INTERN Conversion, [facility] - 12/21/2001 12:01 AM CDT Progress Notes signed by at 05/27/02 1843 Author: Yeny Conversion Service: (none) Author Type: (none) Filed: 08/28/10 0810 Note Time: 12/21/012016 Status: Signed Production Team Manager: Yeny Conversion IMPRESSION: Well physical. Slight obesity. [...] 7. Will followup on tests. TT: CT: [facility]:[id number] C: DOCUMENT: [id number] RNAL COMMUNICATIONS INTERN Conversion, [facility] - 06/09/2001 12:01 AM CST Phone Note signed by at 06/09/01 0954 Author: Yeny Samuels Service: (none) Author Type: (none) Filed: 08/28/10 0341 Note Time: 06/09/012016 Status: Signed Production Team Manager: Yeny Samuels IMPRESSION: lotrisone refill SUBJECTIVE: ALLERGIES/SENSITIVITIES... * HOME PHONE:[phone] * CURRENT MEDICATIONS... * WORK PHONE:[phone] * PERTINENT PAST HISTORY... ASSESSMENT: lotrisone refill DISPOSITION: NO DISPOSITION GIVEN PLAN: [facility] [place] COMMENTS... Called in refill auth per for lotrisone cream 15gm to [facility]. CALL BY FELIPA LORENZ 06/09/2001 09:47AM ADDENDUM: RNAL COMMUNICATIONS INTERN Conversion, [facility] - 09/28/2000 12:01 AM CDT Progress Notes signed by at 07/01/02 0001 Author: Yeny Samuels Service: (none) Author Type: (none) Filed: 08/27/10 2237 Note Time: 09/28/00 0001 Status: Signed Production Team Manager: Yeny Samuels IMPRESSION: Tick bite to right [...] rashes, the patient should be reseen immediately. LAG:[id number] C: DOCUMENT: [id number] SCHEDULED RESOURCE: INDY GIBSON RNAL COMMUNICATIONS INTERN Conversion, [facility] - 09/14/2000 12:01 AM CDT Progress Notes signed by at 10/12/01 1738 Author: Yeny Samuels Service: (none) Author Type: (none) Filed: 08/27/10 2221 Note Time: 09/14/00 0001 Status: Signed Production Team Manager: Yeny Samuels IMPRESSION: Obesity. Minor hypertension. Erectile [...] Health maintenance guideline discussed with the patient. [facility]:[id number] C: DOCUMENT: [id number] Henrique Campos MD - 09/12/1999 12:01 AM CDT Progress Notes signed by at 09/23/99 3370 Author: Henrique Cooper MD Service: (none) Author Type: (none) Filed: 08/27/10 1621 Note Time: 09/12/99 0001 Status: Signed Production Team Manager: Yeny Abril IMPRESSION: For the most part, [...] nerves II through XII are intact. Gait, lyjryj-rq-agyq, rscf-jv-qcce, Romberg, strength and reflexes are normal. ASSESSMENT: [...] that in the future. PLAN: See Assessment. ITZEL:[id number] C: DOCUMENT: [id number] RNAL COMMUNICATIONS INTERN Henrique Cooper MD - 07/15/1999 12:01 AM CST Progress Notes signed by at 07/25/99 1914 Author: Henrique Cooper MD Service: (none) Author Type: (none) Filed: 08/27/10 1525 Note Time: 07/15/99 0001 Status: Signed Production Team Manager: Yeny Samuels IMPRESSION: Keratoses. SUBJECTIVE: Mr. Daley [...] 20 minutes, in the reasonably near future. DJW:[id number] C: DOCUMENT: [id number] Indy Dodd PA-C - 02/26/1999 12:01 AM CDT Progress Notes signed by at 08/24/00 1151 Author: Indy Gibson PA-C Service: (none) Author Type: Resource Filed: 08/27/10 1310 Note Time: 02/26/99 0001 Status: Signed Production Team Manager: Indy Gibson PA-C (Resource) IMPRESSION: Bronchitis. Bronchospasm. SUBJECTIVE: N/A OBJECTIVE: N/A ASSESSMENT: Bronchitis. Bronchospasm. PLAN: The patient is put on Zithromax Konstantin to take as directed and albuterol inhaler two puffs every four hours while awake for the next five days. Symptomatic care was discussed. LAG:[id number] C: DOCUMENT: [id number] Henrique Campos MD - 12/13/1998 12:01 AM CDT Progress Notes signed by at 01/02/99 1427 Author: Henrique Cooper MD Service: (none) Author Type: (none) Filed: 08/27/10 1155 Note Time: 12/13/98 0001 Status: Signed Production Team Manager: [facility] Conversion IMPRESSION: Keratoses. SUBJECTIVE: Please see written note. OBJECTIVE: N/A ASSESSMENT: Keratoses. PLAN: N/A NIGELW:[id number] C: DOCUMENT: [id number] Henrique Campos MD - 08/28/1998 12:01 AM CDT Progress Notes signed by at 09/11/98 1851 Author: Henrique Cooper MD Service: (none) Author Type: (none) Filed: 08/27/10 1008 Note Time: 08/28/98 0001 Status: Signed Production Team Manager: Yeny Conversion IMPRESSION: Myofascial pain, soft tissue. [...] [place] a week after he is better. DJW:[id number] C: DOCUMENT: [id number] Henrique Campos MD - 10/23/1997 12:01 AM CDT Progress Notes signed by at 11/06/97 1907 Author: Henrique Cooper MD Service: (none) Author Type: (none) Filed: 08/27/10 0459 Note Time: 10/23/97 0001 Status: Signed Production Team Manager: Yeny Samuels IMPRESSION: Negative screening test for [...] CDT Progress Notes signed by at 10/05/97 0285 Author: Henrique Cooper MD Service: (none) Author Type: (none) Filed: 08/27/10 0429 Note Time: 09/20/97 0001 Status: Signed Production Team Manager: Yeny Conversion IMPRESSION: Testicular failure with some [...] 0304 Note Time: 06/19/97 0001 Status: Signed Production Team Manager: Yeny Conversion IMPRESSION: Testicular failure with good [...] 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 One-half pack cigarettes a day. He is [...] hearing, cranial nerves II- XII, gait, finger-nose, bzju-tk-mmlo, Romberg. ASSESSMENT: 1. Testicular failure with good [...] 08/26/101943 Note Time: 10/05/95 0001 Status: Signed Production Team Manager: [facility] Conversion IMPRESSION: SKIN CYSTS SUBJECTIVE: Mo [...] 180 Note Time: 04/09/95 0001 Status: Signed Production Team Manager: Yeny Conversion IMPRESSION: Upper respiratory infection. SUBJECTIVE: [...] a low HDL last time, we will cotton picker a cholesterol HDL and notify him of the results of that lab by mail. ncss/jmh RNAL COMMUNICATIONS INTERN Mita Covarrubias MD - 03/11/1995 12:01 AM CST Progress Notes signed by Mita Covarrubias MD at 04/13/95 4794 Author: Mita Covarrubias MD Service: (none) Author Type: Physician Filed: 08/26/10 6288 Note Time: 03/11/95 0001 Status: Signed Production Team Manager: Mita Covarrubias MD (Physician) IMPRESSION: No dictation required. SUBJECTIVE: N/A OBJECTIVE: N/A ASSESSMENT: N/A PLAN: N/A ncss/kda RNAL COMMUNICATIONS INTERN documented in this encounter Plan of Treatment Not on filedocumented as of this encounter Procedures Procedure Name Priority Date/Time Associated Comments Diagnosis HIV ANTIBODY Routine 06/20/2002 9:26 AM Results f or this INTERNAL COMMUNICATIONS INTERN procedure are i n the results section. LIPID PANEL AND Routine 06/20/2002 9:26 AM Result s for this DIRECT LDL(IF NEEDED) INTERNAL COMMUNICATIONS INTERN proced ure are in the results section. ALT (SGPT) Routine 06/20/2002 9:26 AM Results f or this INTERNAL COMMUNICATIONS INTERN procedure are i n the results section. AST Routine 06/20/2002 9:26 AM Results f or this INTERNAL COMMUNICATIONS INTERN procedure are i n the results section. BILIRUBIN, TOTAL Routine 06/20/2002 9:26 AM Resul ts for this INTERNAL COMMUNICATIONS INTERN procedure are i n the results section. BILI - DIRECT Routine 06/20/2002 9:26 AM Results for this INTERNAL COMMUNICATIONS INTERN procedure are i n the results section. ALKALINE PHOSPHATASE, Routine 06/20/2002 9:26 AM Results for this TOTAL INTERNAL COMMUNICATIONS INTERN procedure are i n the results section. ALBUMIN Routine 06/20/2002 9:26 AM Results f or this INTERNAL COMMUNICATIONS INTERN procedure are i n the results section. [...] 06/19/1997 3:55 PM Results f or this INTERNAL COMMUNICATIONS INTERN procedure are i n the results section. LIPID PANEL AND Routine 06/19/1997 3:55 PM Result s for this DIRECT LDL(IF NEEDED) INTERNAL COMMUNICATIONS INTERN proced ure are in the results section. CREATININE / GFR Routine 06/19/1997 3:55 PM Resul ts for this INTERNAL COMMUNICATIONS INTERN procedure are i n the results section. HEMOGLOBIN, BLOOD Routine 06/19/1997 3:55 PM Resu lts for this INTERNAL COMMUNICATIONS INTERN procedure are i n the results section. [...] this encounter Results Albumin (06/20/2002 9:26 AM INTERNAL COMMUNICATIONS INTERN) athologist Signature Albumin 3.9 3.0 - 5.0 HP CONVERSION g/dL Specimen (Source) Anatomical Collection Method Collection Time Re ceived Time Location / / Volume Laterality 06/20/2002 9:26 AM INTERNAL COMMUNICATIONS INTERN [facility]1 Performing Organization Address City/State/ZIP Code Phon e Number HP CONVERSION Alkaline Phosphatase, Total (06/20/2002 9:26 AM INTERNAL COMMUNICATIONS INTERN) athologist Signature Alk Phos 100 50 - 136 U/L HP CONVERSION Specimen (Source) Anatomical Collection Method Collection Time Re ceived Time Location / / Volume Laterality 06/20/2002 9:26 AM INTERNAL COMMUNICATIONS INTERN [place] [facility] Performing Organization Address City/State/ZIP Code Phon e Number HP CONVERSION ALT (SGPT) (06/20/2002 9:26 AM INTERNAL COMMUNICATIONS INTERN) [facility] gist Method Time Signature Alanine 36 0 - 65 HP CONVERSION Aminotransferase U/L Specimen (Source) Anatomical Collection Method Collection Time Re ceived Time Location / / Volume Laterality 06/20/2002 9:26 AM INTERNAL COMMUNICATIONS INTERN [facility] Performing Organization Address City/State/ZIP Code Phon e Number HP CONVERSION AST (06/20/2002 9:26 AM INTERNAL COMMUNICATIONS INTERN) [facility] gist Method Time Signature Aspartate 13 0 - 45 HP CONVERSION Aminotransferase U/L Specimen (Source) Anatomical Collection Method Collection Time Re ceived Time Location / / Volume Laterality 06/20/2002 9:26 AM INTERNAL COMMUNICATIONS INTERN [place] [facility] Performing Organization Address City/State/ZIP Code Phon e Number HP CONVERSION Bilirubin, Direct (06/20/2002 9:26 AM INTERNAL COMMUNICATIONS INTERN) athologist Signature Bilirubin, 0.1 0.0 - 0.4 HP CONVERSION Direct mg/dL Specimen (Source) Anatomical Collection Method Collection Time Re ceived Time Location / / Volume Laterality 06/20/2002 9:26 AM INTERNAL COMMUNICATIONS INTERN [facility] Performing Organization Address City/State/ZIP Code Phon e Number HP CONVERSION Bilirubin, Total (06/20/2002 9:26 AM INTERNAL COMMUNICATIONS INTERN) athologist Signature Bilirubin Total 0.4 0.2 - 1.2 HP CONVERSION mg/dL Specimen (Source) Anatomical Collection Method Collection Time Re ceived Time Location / / Volume Laterality 06/20/2002 9:26 AM INTERNAL COMMUNICATIONS INTERN [place] [facility] Performing Organization Address City/State/ZIP Code Phon e Number HP CONVERSION (ABNORMAL) Lipid Panel and Direct LDL(If Needed) (06/20/2002 9:26 AM INTERNAL COMMUNICATIONS INTERN) [facility] Method Time Signature Length Of Fast [...] / / Volume Laterality 06/20/2002 9:26 AM INTERNAL COMMUNICATIONS INTERN [place] [facility] Performing Organization Address City/State/ZIP Code Phon e Number HP CONVERSION HIV Antibody (06/20/2002 9:26 AM INTERNAL COMMUNICATIONS INTERN) athologist Signature HIV 1/HIV 2 Non Reac Non Reac HP CONVERSION Specimen (Source) Anatomical Collection Method Collection Time Re ceived Time Location / / Volume Laterality 06/20/2002 9:26 AM INTERNAL COMMUNICATIONS INTERN [facility] Performing Organization Address City/[facility]/ZIP [facility] Phon e Number HP CONVERSION (ABNORMAL) Urinalysis Complete Hold Culture (12/21/2001 10:50 AM CDT) [facility] Method Time Signature U Specific 1.020 1.005 - 25 HP CONVERSION Shubert pH Urine 6.5 4.5 - 7.5 HP [...] Radiologist Radiology LAB_1 Performing Organization Address City/[facility] Phon e Number HP CONVERSION (ABNORMAL) Lipid Panel and Direct LDL(If Needed) (12/21/2001 10:50 AM CDT) [facility] Method Time Signature Length Of Fast [...] Radiologist Radiology LAB_1 Performing Organization Address City/[facility]/ZIP Code Phon e Number HP CONVERSION Potassium [...] Radiologist Radiology LAB_1 Performing Organization Address City/[facility]/ZIP [facility] Phon e Number HP CONVERSION AST (12/21/2001 10:50 AM CDT) [facility] gist Method Time Signature Aspartate 20 0 - 45 HP CONVERSION Aminotransferase U/L Specimen (Source) Anatomical Collection Method Collection Time Re ceived Time Location / / Volume Laterality 12/21/2001 10:50 AM CDT Ir Radiologist Radiology LAB_1 Performing Organization Address City/[facility] Phon e Number HP CONVERSION ALT (SGPT) (12/21/2001 10:50 AM CDT) [facility] gist Method Time Signature Alanine 42 0 [...] Radiologist Radiology LAB_1 Performing Organization Address City/[facility]/ZIP [facility] Phon e Number HP CONVERSION Thyroid Stimulating Hormone (12/21/2001 10:50 AM CDT) athologist Signature Thyroid 1.57 0.20 - HP CONVERSION Stimulating 5.50 Hormone uIU/mL Specimen (Source) Anatomical Collection Method Collection Time Re ceived Time Location / / Volume Laterality 12/21/2001 10:50 AM CDT Ir Radiologist Radiology LAB_1 Performing Organization Address City/State/ZIP [facility] Phon e Number HP CONVERSION (ABNORMAL) Hemoglobin, Blood (12/21/2001 10:50 AM CDT) athologist Signature Hemoglobin 17.8 (HH) 13.4 - HP CONVERSION 17.5 gm/dL Specimen (Source) Anatomical Collection Method Collection Time Re ceived Time Location / / Volume Laterality 12/21/2001 10:50 AM CDT Ir Radiologist Radiology LAB_1 Performing Organization Address [facility] Phon e Number HP CONVERSION Electrolytes (NA, [...] Radiologist Radiology LAB_1 Performing Organization Address City/[facility] Phon e Number HP CONVERSION BUN (09/14/2000 9:57 AM CDT) athologist Signature Blood Urea 14 5 - 26 HP CONVERSION Nitrogen mg/dL Specimen (Source) Anatomical Collection Method Collection Time Re ceived Time Location / / Volume Laterality 09/14/2000 9:57 AM CDT Ir Radiologist Radiology LAB_1 Performing Organization Address City/[facility] Phon e Number HP CONVERSION Creatinine / [...] Radiologist Radiology LAB_1 Performing Organization Address City/[facility]/ZIP Code Phon e Number HP CONVERSION Lipid Profile= Chol,Trig,HDL,LDL (09/14/2000 9:57 AM CDT) [facility] gist Method Time Signature Cholesterol/HDL 4.7 No [...] Total Adult Males (09/14/2000 9:57 AM CDT) [facility] gist Method Time Signature Testosterone 184 (LL) [...] CONVERSION ALT (SGPT) (09/17/1999 8:30 AM CDT) [facility] gist Method Time Signature Alanine 50 0 [...] Henrique Cooper MD LAB_1 Performing Organization Address [facility] Phon e Number HP CONVERSION Glucose (09/17/1999 8:30 AM CDT) athologist Signature Length Of Fast 11.5 8.0 - 24.0 HP CONVERSION Hours Lab Glucose 108 70 - 115 HP CONVERSION mg/dL Specimen (Source) Anatomical Collection Method Collection Time Re ceived Time Location / / Volume Laterality 09/17/1999 8:30 AM CDT Henrique Cooper MD LAB_1 Performing Organization Address [facility] Phon e Number HP CONVERSION (ABNORMAL) Lipid Panel and Direct LDL(If Needed) (09/17/1999 8:30 AM CDT) [facility] gist Method Time Signature Length Of Fast [...] CONVERSION (ABNORMAL) Hemoglobin, Blood (06/19/1997 3:55 PM INTERNAL COMMUNICATIONS INTERN) athologist Signature Hemoglobin 17.6 (HH) 13.4 - HP CONVERSION 17.5 gm/dL Specimen (Source) Anatomical Collection Method Collection Time Re ceived Time Location / / Volume Laterality 06/19/1997 3:55 PM INTERNAL COMMUNICATIONS INTERN Henrique Cooper MD LAB_1 Performing Organization Address City/State/ZIP Code Phon e Number HP CONVERSION (ABNORMAL) Lipid Panel and Direct LDL(If Needed) (06/19/1997 3:55 PM INTERNAL COMMUNICATIONS INTERN) [facility] gist Method Time Signature Length Of Fast [...] / / Volume Laterality 06/19/1997 3:55 PM INTERNAL COMMUNICATIONS INTERN Henrique Cooper MD LAB_1 Performing Organization Address City/[facility]/ZIP Code Phon e Number HP CONVERSION Glucose (06/19/1997 3:55 PM INTERNAL COMMUNICATIONS INTERN) athologist Signature Lab Glucose 97 70 - 115 HP CONVERSION mg/dL Specimen (Source) Anatomical Collection Method Collection Time Re ceived Time Location / / Volume Laterality 06/19/1997 3:55 PM INTERNAL COMMUNICATIONS INTERN Henrique Cooper MD LAB_1 Performing Organization Address City/State/ZIP Code Phon e Number HP CONVERSION Creatinine / GFR (06/19/1997 3:55 PM INTERNAL COMMUNICATIONS INTERN) athologist Signature Creatinine 0.7 0.5 - 1.5 HP CONVERSION Serum mg/dL Specimen (Source) Anatomical Collection Method Collection Time Re ceived Time Location / / Volume Laterality 06/19/1997 3:55 PM INTERNAL COMMUNICATIONS INTERN Henrique Cooper MD LAB_1 Performing Organization Address [...] ?VIEW. FINDINGS: ?THERE IS AN OVAL-SHAPED DENSITY CT OJECTED JUST UNDER THE ?RIGHT CLAVICLE IN [...]
--- OUTSIDE RECORDS SUMMARY | 2022-04-01 13:19 | XMS_ITS | Encounter Summary ---
:1940 Author Organization [facility] Address [address] [place] [address] Care Team Providers Name Role Phone Unavailable Primary Care Provider Unavailable Encounter Details Date Type Department Care Team Description 10/25/2002 PN Conversion Only [place] CONVERSJose Antonio Jefferson MBBS [id number] [address] [place] [address] [place] [address] (Wo rk) Social History Tobacco [...] Strep Follow up Culture @ ? Collected: ??[id number] ??[id number] Source: Throat ?Processed: ??[id number] ??[id number] ? V Final Report ------ ?[id number] ??[id number] No beta hemolytic Strep group A isolated . @ = Rapid F/U Cult Performed at ??[address] [place], [place] ?[address] Specimen (Source) Anatomical Collection Method Collection Time Re ceived Time Location / / Volume Laterality 10/25/2002 4:15 PM CDT Jose Antonio COOK LAB_1 Performing Organization Address City/State/ZIP Code Phon e Number HP CONVERSION documented in this encounter Visit Diagnoses Not on filedocumented in this encounter
--- OUTSIDE RECORDS SUMMARY | 2022-04-01 13:19 | XMS_ITS | Encounter Summary ---
:1940 Author Organization [facility] Address [address] [place] [address] Care Team Providers Name Role Phone Unavailable Primary Care Provider Unavailable Encounter Details Date Type Department Care Team Description 10/31/2002 PN Conversion Only [place] Jose Antonio Rayo MBBS [id number] [facility] [address] [place] [address] [place] [address] (Wo rk) Social History Tobacco [...] Direct LDL(If Needed) (10/31/2002 10:07 AM CDT) [facility] gist Method Time Signature Cholesterol/HDL 4.2 No [...]
--- OUTSIDE RECORDS SUMMARY | 2022-04-01 13:19 | XMS_ITS | Encounter Summary ---
:1940 Author Organization [facility] Address [address] [place] [address] Care Team Providers Name Role Phone Unavailable Primary Care Provider Unavailable Encounter Details Date Type Department Care Team Description 05/17/2003 PN Conversion Only [facility] Jose Antonio Carolina, JOYCE [address] [address] [place] [address] [place] [address] (Wo rk) Social History Tobacco Use Types Packs/Day Years Used Date Smoking Tobacco: Never Assessed Sex Assigned at Date Recorded Not on file documented as of this encounter Plan of Treatment Not on filedocumented as of this encounter Procedures Procedure Name Priority Date/Time Associated Diagnosis Comme nts GLUCOSE Routine 05/17/2003 1:25 PM Results f or this [employer] procedure are i n the results section. LIPID PANEL AND Routine 05/17/2003 1:25 PM Result s for this DIRECT LDL(IF [employer] procedure are in NEEDED) the results section. COMPLETE BLOOD Routine 05/17/2003 1:25 PM Results for this COUNT-W/DIFF [employer] procedure are i n the results section. PROSTATIC SPECIFIC Routine 05/17/2003 1:25 PM Res ults for this ANTIGEN(SCREEN) [employer] procedure ar e in the results section. documented in this encounter Results (ABNORMAL) Complete Blood Count-W/Diff (05/17/2003 1:25 PM W[employer]) [facility] gist Method Time Signature Platelet Count [...] - HP CONVERSION Hemoglobin Conc 36.5 gm/dL [place] RDW 12.5 11.0 - HP CONVERSION 15.0 % Specimen (Source) Anatomical Collection Method Collection Time Re ceived Time Location / / Volume Laterality 05/17/2003 1:25 PM [employer] Jose Antonio Carolina [facility] Performing Organization Address City/State/ZIP Code Phon e Number HP CONVERSION Glucose (05/17/2003 1:25 PM W[employer]) P athologist Signature Length Of Fast 18.0 Hours HP CONVERSION Lab Glucose 95 60 - 109 HP CONVERSION mg/dL Specimen (Source) Anatomical Collection Method Collection Time Re ceived Time Location / / Volume Laterality 05/17/2003 1:25 PM [employer] Jose Antonio Carolina [facility] Performing Organization Address City/State/ZIP Code Phon e Number HP CONVERSION (ABNORMAL) Lipid Panel and Direct LDL(If Needed) (05/17/2003 1:25 PM W[employer]) Analysis Performed At Patho logist Time Signature [...] / / Volume Laterality 05/17/2003 1:25 PM [employer] Jose Antonio [facility] Performing Organization Address City/State/ZIP Code Phon e Number HP CONVERSION Prostatic Specific Antigen (Screen) (05/17/2003 1:25 PM W[employer]) P athologist Signature Prostate 1.1 0.0 - 4.0 HP CONVERSION Specific ng/mL Antigen Specimen (Source) Anatomical Collection Method Collection Time Re ceived Time Location / / Volume Laterality 05/17/2003 1:25 PM [employer] Jose Antonio [facility] Performing Organization Address City/State/ZIP Code Phon e Number HP CONVERSION documented in this encounter Visit Diagnoses Not on filedocumented in this encounter
--- OUTSIDE RECORDS SUMMARY | 2022-04-01 13:19 | XMS_ITS | Encounter Summary ---
:1940 Author Organization [facility] Address [address] [place] [address] Care Team Providers Name Role Phone Unavailable Primary Care Provider Unavailable Encounter Details Date Type Department Care Team Description 05/17/2003 PN Conversion Only [facility] [address] [place] [address] Social History Tobacco Use Types Packs/Day Years Used Date Smoking Tobacco: Never Assessed Sex Assigned at Date Recorded Not on file documented as of this encounter Plan of Treatment Not on filedocumented as of this encounter Visit Diagnoses Not on filedocumented in this encounter
[2022-04-01 18:22] LABS: Albumin* 2.8 g/dL (3.3-5.0)
[2022-04-01 18:24] LABS: Bilirubin Direct* 0.4 mg/dL (0.0-0.5); Bilirubin Total* 0.7 mg/dL (0.1-1.5)
[2022-04-01 18:25] LABS: Alanine Aminotransferase* 76 U/L (4-50); Alkaline Phosphatase* 330 U/L (40-150); Aspartate Amino Transferase* 86 U/L (12-35); Total Protein* 5.9 g/dL (6.0-8.3)
== END 2022-04-01 13:13 | disposition home or self-care (01) ==
LOC: LONREF 13:14
PROVIDERS: PCP Family Medicine; Visit Provider Family Medicine
DX: K81.0 Acute cholecystitis (principal)
CPT/HCPCS: 80076

== ENCOUNTER 2022-10-15 09:05 | Outpatient (CLI) | payer MEDICARE, BC, SELFPAY | END 2022-10-15 09:06 | disposition home or self-care (01) | PROVIDERS: PCP Family Medicine; Visit Provider Nurse Practitioner Family | DX: I10 Essential (primary) hypertension (principal); E78.5 Hyperlipidemia, unspecified | CPT/HCPCS: 80053; 80061 ==

== ENCOUNTER 2022-12-15 12:10 | Outpatient (CLI) | payer MEDICARE, BC, SELFPAY | END 2022-12-15 12:11 | disposition home or self-care (01) | PROVIDERS: PCP Family Medicine; Visit Provider Family Medicine | DX: R19.7 Diarrhea, unspecified (principal); I10 Essential (primary) hypertension; R63.4 Abnormal weight loss; R10.9 Unspecified abdominal pain; Z13.29 Encounter for screening for other suspected endocrine disorder | CPT/HCPCS: 80053; 84443 ==

== ENCOUNTER 2022-12-22 10:00 | Outpatient (CLI) | payer MEDICARE, BC, SELFPAY ==
--- NOTE | 2022-12-22 11:00 | CRLHL7_ITS ---
For Patients: As a result of the 21st Century Cures Act, medical imaging exams and procedure reports are released immediately into your electronic medical record. You may view this report before your referring provider. If you have questions, please contact your health care provider. Indication: ABNORMAL WEIGHT LOSS Technique: Postcontrast CT chest, abdomen and pelvis. 83 cc Isovue 370 intravenous contrast. Please note that all CT scans at this facility use dose modulation, iterative reconstruction, and/or weight-based dosing when appropriate to reduce radiation dose to as low as reasonably achievable. Comparison: CT 03/19/2022, ultrasound 03/19/2022, HIDA scan 03/19/2022 Findings: In the chest, the visualized thyroid is normal. No enlarged axillary lymph nodes. Atherosclerotic changes are present. No enlarged mediastinal or hilar lymph nodes. No pleural or pericardial effusion. Benign bone island is present within the right lateral 2nd rib. Calcified granuloma noted in the left upper lobe. Postoperative changes of coronary artery bypass graft procedure. Fibrotic changes are noted in a peripheral distribution in both lower lobes with thickening of the interlobular septa and mild honeycombing. Tiny calcified granuloma within the left lower lobe is present adjacent to the diaphragm. No pleural effusion or infiltrate. No pneumothorax. Numerous other calcified granulomas are present elsewhere throughout both lungs. No vertebral body compression fracture. Degenerative disc disease. In the abdomen, no intrahepatic mass is noted. There are postoperative changes of cholecystectomy. Ill-defined hypodense material is located inferior to the liver with associated surgical clips. There is no biliary duct dilation or evidence of common bowel duct stone. The pancreas is normal. Spleen is unremarkable. Incidental splenule. Adrenal glands normal. No hydronephrosis. No solid renal mass or perinephric stranding. Calcification within a vessel involving the right kidney is noted. Atherosclerotic disease in the aorta. No aneurysm. No enlarged lymph nodes within the retroperitoneum or mesenteric fat. No hiatal hernia. There is an irregular collection of fluid within the anterior left abdomen just beneath the left anterior ribcage measuring approximately 2.8 x 5.4 cm. A smaller collection of circumscribed fluid is noted adjacent to the left hepatic lobe in the midline measuring 1.8 cm. Finally, there is a more inferior collection of fluid on the sagittal reconstructed images measuring 2.9 cm. In the pelvis, prostate calcifications are present. The bladder is normal. Mild sigmoid diverticulosis. No diverticulitis. The appendix is within normal limits. No pelvic or inguinal adenopathy. A few scattered benign bone islands are present. Degenerative changes. No fracture. Impression: Multiloculated anterior abdominal abscesses with thickened and irregular peterson, measuring up to 2.8 x 5.4 cm. Associated irregular fluid inferior to the liver with associated cholecystectomy clips. Surgical consultation recommended. Please note that all CT scans at this facility use dose modulation, iterative reconstruction, and/or weight-based dosing when appropriate to reduce radiation dose to as low as reasonably achievable. Dictated by Henrique Webster MD @ 12/22/2022 1:42:30 PM (Electronically Signed)
== END 2022-12-22 10:01 | disposition home or self-care (01) ==
LOC: CT 10:04
PROVIDERS: PCP Family Medicine; Visit Provider Family Medicine
DX: R63.4 Abnormal weight loss (principal)
CPT/HCPCS: 71260; 74177; Q9967

== ENCOUNTER 2023-01-06 10:02 | Outpatient (CLI) | payer MEDICARE, BC, SELFPAY ==
--- NOTE | 2023-01-06 10:00 | CRLHL7_ITS ---
For Patients: As a result of the Century Cures Act, medical imaging exams and procedure reports are released immediately into your electronic medical record. You may view this report before your referring provider. If you have questions, please contact your health care provider. Indication: Follow-up abscesses Technique: Postcontrast CT abdomen and pelvis. 83 cc Isovue 370 intravenous contrast. Please note that all CT scans at this facility use dose modulation, iterative reconstruction, and/or weight-based dosing when appropriate to reduce radiation dose to as low as reasonably achievable. Comparison: 12/25/2022, 12/22/2022 Findings: Left para midline upper abdominal wall drainage catheter is present. Near complete resolution of the associated abscess. Complex fluid collection/abscess within the more inferior left para midline anterior abdomen measures 2.9 cm, previously measuring 2.6 cm. Additional complex fluid collection, abscess adjacent to the left hepatic lobe measures 2.5 cm, previously measuring 1.8 cm. No intrahepatic mass. Chronic inflammatory changes inferior to the liver with surgical clips. Gallbladder absent. No gastric outlet obstruction. No small bowel obstruction. Adrenal glands are similar. No hydronephrosis. Spleen normal. Normal pancreas. Atherosclerotic changes. Fibrotic changes in both lower lobes. No pleural effusion. Calcified granuloma in the inferior lingula. No free air. Bladder normal. Prostate calcifications. Diverticulosis. No acute diverticulitis. No enlarged lymph nodes. Degenerative changes lumbar spine. No fracture. Impression: Near complete resolution of the larger abscess in the left anterior upper abdominal wall status post placement of drainage catheter. Slight increased size of additional abscesses within the anterior abdomen, 1 located adjacent to the left hepatic lobe and 1 located in the left paramidline. Please note that all CT scans at this facility use dose modulation, iterative reconstruction, and/or weight-based dosing when appropriate to reduce radiation dose to as low as reasonably achievable. Dictated by Henrique Webster MD @ 01/06/2023 2:47:32 PM (Electronically Signed)
== END 2023-01-06 10:03 | disposition home or self-care (01) ==
PROVIDERS: PCP Family Medicine; Visit Provider Surgery
DX: R93.3 Abnormal findings on diagnostic imaging of other parts of digestive tract (principal)
CPT/HCPCS: 74177; Q9967

== ENCOUNTER 2023-02-09 09:21 | Outpatient (CLI) | payer MEDICARE, BC, SELFPAY ==
[2023-02-09 09:57] LABS: Creatinine* 0.5 mg/dL (0.5-1.5); Estimated Glomerular Filt Rate 101 ml/min
--- NOTE | 2023-02-09 10:00 | CRLHL7_ITS ---
For Patients: As a result of the Century Cures Act, medical imaging exams and procedure reports are released immediately into your electronic medical record. You may view this report before your referring provider. If you have questions, please contact your health care provider. INDICATION: Peritoneal abscess. TECHNIQUE: CT abdomen and pelvis acquired with 82 cc Isovue 370 IV contrast. COMPARISON: 01/06/2023. FINDINGS: Lower chest: Mild dependent atelectasis. Coronary artery calcification. Liver: Moderate hepatic steatosis. No suspicious pelvic mass. Unchanged surgical clips and inflammatory change along the inferior margin of the right hepatic lobe. Gallbladder and bile ducts: Status post cholecystectomy. No biliary ductal dilatation. Pancreas: Unremarkable. No mass or inflammation. Spleen: Unremarkable. Normal in size. No masses. Adrenal glands: Unremarkable. No nodules. Kidneys: Unremarkable. No suspicious masses, stones, or hydronephrosis. GI tract: Normal in caliber. No sign of mass or inflammation. Few colonic diverticula without evidence of acute diverticulitis Vasculature: Abdominal aorta is normal in caliber. Mesenteric arteries are patent. Lymph nodes: Scattered atherosclerosis. No aneurysm. Peritoneum/Abdominal Wall: Complex f rim enhancing fluid collection/abscess within the left paramedian anterior abdomen/abdominal wall measuring 2.7 by 2.7 centimeters, slightly increased compared at 2.3 x 2.7 centimeters previously. Additional rim enhancing fluid collection/abscess adjacent to the inferior margin left hepatic lobe measuring 2.5 x 2.9 centimeters compared with 2.5 x 2.6 centimeters previously. No new fluid collection. Pelvis: Mildly enlarged, heterogeneous prostate. Bones: Degenerative spondylosis IMPRESSION: Slight interval increase in size of the 2 rim enhancing fluid collections/abscesses within the anterior abdomen and abdominal wall. One is located adjacent inferior margin below left hepatic lobe and the other is located along the paramedian abdominal wall Please note that all CT scans at this facility use dose modulation, iterative reconstruction, and/or weight-based dosing when appropriate to reduce radiation dose to as low as reasonably achievable. Dictated by Yury Mcgee MD @ 02/11/2023 9:37:14 AM (Electronically Signed)
== END 2023-02-09 09:22 | disposition home or self-care (01) ==
LOC: CT 09:22
PROVIDERS: PCP Family Medicine; Visit Provider Surgery
DX: K65.1 Peritoneal abscess (principal)
CPT/HCPCS: 36415; 74177; 82565; Q9967

== ENCOUNTER 2023-06-11 13:15 | Outpatient (CLI) | payer MEDICARE, BC, SELFPAY ==
--- OUTSIDE RECORDS SUMMARY | 2023-06-11 13:18 | XMS_ITS | Clinical Summary ---
Author Name Unknown Organization [facility] Address [place], [place] [address] Care Team Providers Care Drying Tumbler Operator Name Role Phone Maxwell Quinones MD Primary Care Provider [phone] Allergies No known active allergies Medications Medication Sig Dispensed Refills Start Date End Date Status multivitamin (MVI) tablet Take 1 tablet by mouth once daily. 0 Active vitamin B complex (B COMPLEX 1) tablet Take 1 tablet by mouth once daily. 0 Active nitroglycerin (NITROSTAT) 0.[address] 0.4 mg under the tongue every 5 minutes if needed for Chest Pain. 0 Active cholecalciferol (VITAMIN D-3) 2,000 unit capsule Take 2,000 Units by mouth once daily. 0 Active latanoprost (XALATAN) 0.005 % ophthalmic solution Place 1 Drop into both eyes at bedtime. 0 Active dorzolamide (TRUSOPT) 2 % ophthalmic solution Place 1 Drop into left eye 2 times daily. 0 Active metoprolol succinate (TOPROL XL) 25 mg Sustained-Release tablet Take 25 mg by mouth once daily. 0 Active aspirin (ECOTRIN) 81 mg enteric coated tablet Take 1 tablet by mouth once daily with a meal. Take for life. 0 04/14/2015 Active acetaminophen (TYLENOL) 325 mg tablet Take 1-2 tablets by mouth every 4 hours if needed for Pain. Max acetaminophen dose: 4000mg in 24 hrs. 0 04/14/2015 Active atorvastatin (LIPITOR) 20 mg tabletIndications:NS ZAKIA (non-ST elevated myocardial infarction) (HC),S/P CABG x 3 Take 1 tablet by mouth at bedtime. 30 tablet 2 04/14/2015 Active lisinopril (PRINIVIL; ZESTRIL) 5 mg tabletIndications:HT N (hypertension),Ische li cardiomyopathy Take 1 tablet by mouth 2 times daily. 60 tablet 2 04/14/2015 Active sennosides-docusate, 8.6-50 mg, (SENOKOT S) 8.6-50 mg tabletIndications:S/ P CABG x 3 Take 1-4 tablets by mouth 2 times daily if needed for Constipation. 60 tablet 2 04/14/2015 Active HYDROcodone-acetamin ophen, 5-325 mg, (NORCO) per tabletIndications:S/ P CABG x 3 Take 1-2 tablets by mouth every 4 hours if needed for Pain. Max acetaminophen dose: 4000 mg in 24 hrs. 40 tablet 0 04/14/2015 Active ondansetron (ZOFRAN ODT) 4 mg disintegrating tabletIndications:S/ P CABG x [address] 1 tablet on the tongue every 8 hours if needed for Nausea/Vomiting. 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 Overview: Coronary artery bypass grafting x3, left internal mammary artery to left anterior descending, saphenous vein to posterior descending, saphenous vein to ramus intermedius ACP (advance care planning) 04/09/2015 Overview: Patient has identified Health Care Agent(s): No Add Health Care Agents: No - primary concerned persons include: Anisa/daughter/[phone]-cell Who is the backup family spokesperson: Name/relationship/phone (see row detail) Thea/daughter/[phone]-cell/ Breanne/daughter [phone] Patient has Advance Care Plan Documents (Health Care Directive, POLST): No, Health Care Packet given to patient. Patient has identified Specific Treatment Preferences: No Specific limits to treatment preferences NOT identified: ASSUME FULL TREATMENT. Coronary artery disease involving [place] coronar y artery 04/06/2015 Overview: 3 vessel disease on coronary angiogram from 03/2015 NSTEMI (non-ST elevated myocardial infarction) 1 06/05/2014 HTN (hypertension) 04/05/2015 Hyperlipidemia 04/05/2015 Type 2 diabetes mellitus without complication Testicular hypofunction 08/03/2005 Overview: Overview: LW Onset: Benign neoplasm of colon 08/03/2005 Overview: Overview: LW Modifier: NEED REPEAT COLONOSCOPY 2006 LW Onset: 06/2003 Family History Medical History Relation Name Comments Heart Disease Brother Heart Disease Sister Relation Name Status Comments Brother Sister Social History Tobacco Use Types Packs/Day Years Used Date Smoking Tobacco: Former Cigarettes Q uit: 05/10/1998 Alcohol Use Standard Drinks/Week Comments Yes 0 (1 standard drink = 0.6 oz pur e alcohol) moderate alcohol use Sex and Gender Information Value Date Recorded Sex Assigned at Not on file Gender Identity Not on file Sexual Orientation Not on file Obstetrics History Last Filed Vital Signs Vital Sign Reading Time Taken Comments Blood Pressure 94/59 12/25/2022 10:30 AM CDT Pulse 65 12/25/2022 10:30 AM CDT Temperature 36.1 ??C (97 ??F) 12/25/2022 8:14 AM CDT Respiratory Rate 16 12/25/2022 10:30 AM CDT Oxygen Saturation 97% 12/25/2022 10:30 AM CDT Inhaled Oxygen Concentration - - Weight 75.3 kg (166 lb) 12/25/2022 8:14 AM CDT Height 177.8 cm (5' 10) 12/25/2022 8:14 AM CDT Body Mass Index 23.82 12/25/2022 8:14 AM CDT Plan of Treatment Health Maintenance Due Date Last Done Comments Tdap 1949 Depression screening for age 12+ 1950 BMI (ht and wt on same day) for age 18+ 1956 Tetanus booster 1958 Zoster (shingles) series for age 50+ (1 of 2) 1988 Pneumococcal series for age 65+ (1 of 1 - PCV) 2003 COVID-19 vaccine series (2022- season) 2023 09/30/2021, 03/17/2021, 07/02/2020, Additional history exists Influenza for age 65+ 01/08/2023 Advance Directives Documents on File Type Date Recorded Patient Casing 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
--- OUTSIDE RECORDS SUMMARY | 2023-06-11 13:18 | XMS_ITS | Clinical Summary ---
Author Name Unknown Organization [facility] Address [address] [place] [address] Care Team Providers Care Rn Picu Name Role Phone Clinician, Not Found MD Primary Care Provider Un available Source Comments You are receiving this document as you are listed as the primary care provider,follow-up provider, or the patient has been referred to you for consultation.This is in compliance with the Medicare and[facility] EHR Incentive Program,which states Providers who transition their patient to another setting of careor provider of care or refers their patient to another provider of care shouldprovide summary care record for each transition of care or referral. [facility] Allergies No known active allergies Medications Medication Sig Dispensed Refills Start Date End Date Status lancets (ONE TOUCH ULTRASOFT LANCETS) LW Addl Instr:CHECK GLUCOSE 1-2 TIMES WEEKLY PRIOR TO BREAKFAST 100 6 11/01/2006 Active amLODIPine (AKA NORVASC) 5 MG tablet Take 1 tablet by mouth daily (every 24 hours). LW Addl Instr:Indicated for: High Blood Pressure 90 3 11/01/2006 Active hydrocortisone 2.5 % cream Apply 1 Application topically 2 times daily as needed. LW Comment:CALVES 0 11/01/2006 Active latanoprost (XALATAN) 0.005 % eye drop solution Place 1 drop into both eyes every evening. 2.5 2 04/11/2007 Active Tadalafil (AKA CIALIS) 20 MG tablet Take 5-10 mg by mouth daily as needed. LW Comment:1/4 TO 1/2 TAB NEEDED LW Addl Instr:Take 30-60 minutes prior to sexual activity. Effects may last up to 36 hours. Indicated for: Erectile Dysfunction 6 3 11/01/2006 Active blood glucose (ONE TOUCH ULTRA TEST) strip LW Addl Instr:CHECK GLUCOSE 1-2 TIMES WEEKLY PRIOR TO BREAKFAST 100 6 11/01/2006 Active Flaxseed Oil (LINSEED OIL) Take by mouth. 3 11/01/2006 Active Multiple Vitamins-Minerals (MULTIVITAMIN OR) Take 1 tablet by mouth daily (every 24 hours). 13 11/01/2006 Active ascorbic acid (AKA VITAMIN C) 500 MG tablet Indications: PN: 0 11/01/2006 Active CALCIUM CARB-MAGNESIUM CARB OR LW Addl Instr:TAKE WITH FOOD. 0 11/01/2006 Active blood glucose monitor system (ONE TOUCH ULTRA SYSTEM KIT) W/DEVICE LW Addl Instr:CHECK GLUCOSE 1-2 TIMES WEEKLY PRIOR TO BREAKFAST 1 0 11/01/2006 Active aspirin 325 MG tabletIndications:IN INA ASHBY WedDec 30, 2011 9:46 AM patient stopped 5 days ago for procedure. Take 1 tablet by mouth every other day. 13 03/01/2006 Active testosterone (ANDROGEL) 50 MG/5GM (1%) gel Place 1 packet onto the skin every other day. 15 0 01/12/2008 Active pravastatin (PRAVACHOL) 40 MG tablet Take 40 mg by mouth daily (every 24 hours). 0 12/22/2011 Active metFORMIN (GLUCOPHAGE) 1000 MG tablet Take 1,000 mg by mouth 2 times daily (with meals). 0 12/22/2011 Active Active Problems Problem Noted Date Diagnosed Date Testicular hypofunction 08/03/2005 Overview: LW Onset: ; Hypogonadism Primary Male Impaired glucose tolerance test 08/03/2005 Overview: LW Onset: [id number] ; Glucose Intolerance (Impaired Tolerance) Tobacco use disorder 08/03/2005 Overview: LW Modifier: QUIT 1999; 30 P/Y ; Tobacco Abuse Benign neoplasm of colon 08/03/2005 Overview: LW Modifier: NEED REPEAT COLONOSCOPY 2006 LW Onset: 06/2003 ; Polyp Colon Adenomatous Primary open angle glaucoma 04/25/2004 Overview: LW Onset: [id number] ; Glaucoma Open Angle Primary Essential hypertension 10/14/2002 Overview: Hypertension Immunizations Name Administration Dates Next Due Flu Vac Preserv Free (3+yrs) 02/15/2006,03/09/20 05,04/23/2004 Influenza, Unspecified Formulation 02/27,03/14/2002,03/09/2001,03/10/19 99,02/14/1998,03/02/1996 PPSV23 (Pneumovax) 08/03/2005 Td 12/21/2001,10/05/1991 Social History Tobacco Use Types Packs/Day Years Used Date Smoking Tobacco: Former Smokeless Tobacco: Never Comments:Quit smoking: Alcohol Use Standard Drinks/Week Comments Yes 0 (1 standard drink = 0.6 oz pur e alcohol) Sex and Gender Information Value Date Recorded Sex Assigned at Not on file Gender Identity Not on file Sexual Orientation Not on file Last Filed Vital Signs Vital Sign Reading Time Taken Comments Blood Pressure 123/78 03/23/2017 1:26 PM CIGAR HEAD PEGGER Pulse 63 03/23/2017 1:26 PM CIGAR HEAD PEGGER Temperature - - Respiratory Rate 16 03/23/2017 1:26 PM CIGAR HEAD PEGGER Oxygen Saturation 100% 03/23/2017 1:26 PM CIGAR HEAD PEGGER Inhaled Oxygen Concentration - - Weight 99.8 kg (220 lb) 12/30/2011 9:52 AM CDT Height 180.3 cm (5' 11) 12/30/2011 9:52 AM CDT Body Mass Index 30.68 12/30/2011 9:52 AM CDT Plan of Treatment Health Maintenance Due Date Last Done Comments Medicare Annual Wellness Visit 1940 COVID-19 Vaccine (#1) 1940 Zoster/Shingles (1 of 2) 1988 DTaP/Tdap/Td (1 - Tdap) 12/22/2001 12/21/2001, 10/04 Pneumococcal 65+ Yrs (2 - PCV) 08/03/2006 08/03/2005 Colonoscopy 03/23/2020 03/23/2017, 12/09 (Completed), 12/27/2006 Influenza (#1) 2023 02/15/2006, 02/09, 04/23/2004, Additional history exists HepA Aged Out No longer eligi ble based on patient's age to complete this topic HepB Aged Out No longer eligi ble based on patient's age to complete this topic Hib Aged Out No longer eligi ble based on patient's age to complete this topic IPV (Polio) Aged Out No longer eligi ble based on patient's age to complete this topic MCV4 Aged Out No longer eligi ble based on patient's age to complete this topic Care Teams Rn Picu Relationship Specialty Start Date End Date Clinician, Not Found, [place] [address] PCP - General 06/10/20
[2023-06-11 13:49] LABS: Creatinine* 0.8 mg/dL (0.5-1.5); Estimated Glomerular Filt Rate 87 ml/min
--- NOTE | 2023-06-11 14:00 | CRLHL7_ITS ---
For Patients: As a result of the Century Cures Act, medical imaging exams and procedure reports are released immediately into your electronic medical record. You may view this report before your referring provider. If you have questions, please contact your health care provider. INDICATION: Peritoneal abscess TECHNIQUE: CT abdomen and pelvis acquired with 87 cc Isovue 370 IV and water utilized for oral contrast. COMPARISON: Multiple CTs of the abdomen and pelvis, most recently 02/09/2023 FINDINGS: Lower chest: Bibasilar atelectasis and/or scarring with no significant abnormality appreciated. Hepatobiliary: No significant pack abnormality appreciated. No biliary dilation. Spleen: Unremarkable. Pancreas: Unremarkable. Adrenal glands: Unremarkable. Kidneys: Suspect nonobstructing bilateral renal stones. No significant parenchymal abnormality. No hydronephrosis. Bowel: No obstruction. No focal perienteric or pericolonic stranding appreciated. Question polyp in the 1st portion of the duodenum. Vascular: Calcified and noncalcified atherosclerosis with no significant interval change appreciated. Lymph nodes: No gross lymphadenopathy appreciated. Peritoneum: Again noted are a pair of discrete fluid collections. The collection inferior to the left liver has decreased in size measuring 2.0 x 1.9 centimeters, previously 3.4 x 2.6 centimeters. The collection along the anterior left abdominal wall/rectus musculature appears progressed and now appears multiloculated, measuring 5.4 x 4.0 centimeters, previously 5.0 x 1.9 centimeters, and now appears to be more confluent with the loculated inferior portions of the collection. No new discrete collection appreciated. No free air. No free fluid. : Unremarkable. Soft tissues: No other significant abnormality appreciated. Bones: Degenerative changes of the spine and pelvis, otherwise unremarkable. IMPRESSION: 1. Interval increase in size and apparent complexity of the left abdominal wall/rectus musculature presumed abscess compared to prior examination. 2. Interval decrease in size of the presumed abscess inferior to the left hepatic lobe. 3. Question polyp in the 1st portion of the duodenum. 4. Suspect bilateral nonobstructing renal stones. Please note that all CT scans at this facility use dose modulation, iterative reconstruction, and/or weight-based dosing when appropriate to reduce radiation dose to as low as reasonably achievable. Dictated by Mendel Gentile MD @ 06/13/2023 5:45:03 PM (Electronically Signed)
== END 2023-06-11 13:16 | disposition home or self-care (01) ==
LOC: CT 13:16
PROVIDERS: PCP Family Medicine; Visit Provider Surgery
DX: K65.1 Peritoneal abscess (principal); N20.0 Calculus of kidney
CPT/HCPCS: 36415; 74177; 82565; Q9967

== ENCOUNTER 2023-06-17 09:24 | Day surgery (SDC) | payer MEDICARE, BC, SELFPAY ==
--- OUTSIDE RECORDS SUMMARY | 2023-06-17 09:33 | XMS_ITS | Clinical Summary ---
Author Name Unknown Organization [facility] Address [address] [place] [address] Care Team Providers Care Senior Analytic Consultant Name Role Phone Clinician, Not Found MD Primary Care Provider Un available Source Comments You are receiving this document as you are listed as the primary care provider,follow-up provider, or the patient has been referred to you for consultation.This is in compliance with the Medicare and[facility] E[facility] Incentive [facility],which states Providers who transition their patient to another setting of careor provider of care or refers their patient to another provider of care shouldprovide summary care record for each transition of care or referral. [facility] Allergies No known active allergies Medications [...] glucose tolerance test 08/03/2005 Overview: LW Onset: [id number] ; Glucose Intolerance (Impaired Tolerance) Tobacco use disorder 08/03/2005 Overview: LW Modifier: QUIT 1999; 30 P/Y ; Tobacco Abuse Benign neoplasm of colon 08/03/2005 Overview: LW Modifier: NEED REPEAT COLONOSCOPY 2006 LW Onset: 06/2003 ; Polyp Colon Adenomatous Primary open angle glaucoma 04/25/2004 Overview: LW Onset: 37Mwh73 ; Glaucoma Open Angle Primary Essential hypertension [...] Comments Blood Pressure 123/78 03/23/2017 1:26 PM RESTAURANT LINE SERVER Pulse 63 03/23/2017 1:26 PM RESTAURANT LINE SERVER Temperature - - Respiratory Rate 16 03/23/2017 1:26 PM RESTAURANT LINE SERVER Oxygen Saturation 100% 03/23/2017 1:26 PM RESTAURANT LINE SERVER Inhaled Oxygen Concentration - - Weight 99.8 [...] age to complete this topic Care Teams Senior Analytic Consultant Relationship Specialty Start Date End Date Clinician, Not Found, [place] [address] PCP - General 06/10/20
--- OUTSIDE RECORDS SUMMARY | 2023-06-17 09:33 | XMS_ITS | Clinical Summary ---
Author Name Unknown Organization [employer] [facility] Address [place], [place] [address] Care Team Providers Care Insulation Nozzleman Name Role Phone Maxwell Quinones MD Primary Care Provider [phone] Allergies No known active allergies Medications Medication [...] Agents: No - primary concerned persons include: Anisa/daughter/[phone]-cell Who is the backup family spokesperson: Name/relationship/phone (see row detail) Thea/daughter/[phone]-cell/ Breanne/daughter [phone] Patient has Advance Care Plan Documents (Health Care Directive, POLST): No, Health Care Packet given to patient. Patient has identified Specific Treatment Preferences: No Specific limits to treatment preferences NOT identified: ASSUME FULL TREATMENT. 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
[2023-06-17 10:22] VITALS: BP 161/84; PULSE 72; RESP 16; TEMP 36.4; O2SAT 97; BMI 25.2
[2023-06-17] MEDS: SODIUM CHLORIDE 0.9 % (FLUSH) 10 ML SYRINGE IVF (10:29)
[2023-06-17] MEDS: LACTATED RINGERS 1000 ML 1,000 ML 100 ML IV (10:30)
--- NOTE | 2023-06-17 11:20 | W.PM.H&PU ---
History & Physical Update History & Physical Update H&P Reviewed and patient assessed: No changes noted
[2023-06-17] MEDS: CEFAZOLIN 2 GM INJ IVP (12:17)
[2023-06-17] MEDS: BUPIVACAINE 0.25% 30 ML INJECTION (12:40)
[2023-06-17 13:00] VITALS: BP 132/73; PULSE 64; RESP 16; TEMP 36.2; O2SAT 95
[2023-06-17 13:20] VITALS: BP 150/83; PULSE 61; RESP 16; O2SAT 95
--- NOTE | 2023-06-17 13:34 | W.ANESCHARGE ---
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
--- NOTE | 2023-06-17 13:51 | PM.GSPRC ---
Operative Note Date of procedure: 06/17/23 Pre-op diagnosis: 1. Left upper quadrant abscess, failed percutaneous drainage. Post-op diagnosis: Same Type of Procedure: 1. Incision and drainage and excisional debridement of the left upper quadrant soft tissue abscess. Indications: 83-year-old male was seen in clinic for re-evaluation of a left upper quadrant incisional bump. Patient underwent laparoscopic cholecystectomy 1 year ago. A few months following his cholecystectomy he developed subcutaneous fluid collections. The largest fluid collection was drained by percutaneous drain. The drainage stopped and the drain was removed. However follow-up CT showed persistent small fluid collection. Patient was managed with observation and a few weeks ago he noticed that his left upper quadrant bump came back. Two days prior to his clinic visit he also noticed erythema overlying this pump. An abdominal CT was obtained that showed a lobular left upper quadrant soft tissue fluid collection in the location that was noted on his prior CT. On clinical exam he had protuberant soft tissue in the left upper quadrant with central erythema concerning for an abscess. There was a well-healed surgical scar in the center of this fluid collection. Given patient's clinical history and non resolving nature of this abscess, incision and drainage and excisional debridement of the abscess cavity was recommended. The procedure was discussed in detail. The risks associated procedure including infection, bleeding, and possible need for additional procedures were all discussed with the patient, he agreed to proceed. Procedure Description: After discussing the risks and benefits of the procedure, the patient signed informed consent.? The operative site was marked and the patient was brought to the operating room and placed on the operating table in supine position.? Care was taken to pad the patient's pressure points.?? The patient was then sedated by anesthesia.?? The operative site was then prepped and draped in the usual sterile fashion.? A time-out was then performed. Local anesthetic was injected at the surgical site. A horizontal surgical incision was made in the left upper quadrant over the abscess cavity. Subcutaneous tissues were divided with cautery and abscess cavity was entered. Moderate amount of purulent drainage was suctioned out. Necrotic appearing abscess wall was encountered. Necrotic tissue was excised with cautery. Muscle fibers were identified and divided medially and laterally to be able to examine the base of the cavity further. About 6 mm opening beyond the muscle layer was noted and bluntly entered. This was an additional deeper abscess cavity space. Purulent drainage came out from this abscess as well. This was suctioned out. This was bluntly explored with my finger. This was the deepest part of the abscess cavity. It did not appear to penetrate into the abdominal cavity. The abscess cavity was irrigated with normal saline. Additional local anesthetic was injected in subcutaneous tissues. Hemostasis was achieved with cautery. The abscess cavity was then packed with iodoform Nu Gauze, and covered by 4x4 gauze and tape. The patient was then woken and transported to the recovery area in stable condition. ? The patient tolerated the procedure well. Findings: Abscess cavity in the left upper quadrant. Anesthesia: GETA Surgeon: Raji Bocanegra MD Estimated blood loss (mL): 5 Condition: stable Disposition: same day
[2023-06-17] MEDS: HYDROCODONE-ACETAMIN 5-325 MG 1 TAB PO (14:08)
== END 2023-06-17 14:24 | disposition home or self-care (01) ==
PROVIDERS: PCP Family Medicine; Visit Provider Surgery
PROC: (CPT 10061; principal; 2023-06-17 11:45)
DX: L02.211 Cutaneous abscess of abdominal wall (principal); E13.9 Other specified diabetes mellitus without complications
CPT/HCPCS: 10061; 00400; 82962; 99100; A9270; J0665; J0690; J2405; J2704; J3010; J7120

== ENCOUNTER 2023-09-27 15:50 | Outpatient (CLI) | payer MEDICARE, BC, SELFPAY ==
--- OUTSIDE RECORDS SUMMARY | 2023-09-27 15:54 | XMS_ITS | Clinical Summary ---
Author Name Unknown Organization [facility] Address [address] [place] [address] Care Team Providers Care Beader Name Role Phone Clinician, Not Found MD Primary Care Provider Un available Source Comments You are receiving this document as you are listed as the primary care provider,follow-up provider, or the patient has been referred to you for consultation.This is in compliance with the Medicare and[facility] E[facility] Incentive Program,which states Providers who transition their patient to another setting of careor provider of care or refers their patient to another provider of care shouldprovide summary care record for each transition of care or referral. [facility] Allergies No known active allergies Medications Medication [...] 2 times daily as needed. LW Comment:CALVES 11/01/2006 Active latanoprost (XALATAN) 0.005 % eye [...] VITAMIN C) 500 MG tablet Indications: PN: 11/01/2006 Active CALCIUM CARB-MAGNESIUM CARB OR LW Addl Instr:TAKE WITH FOOD. 11/01/2006 Active blood glucose monitor system (ONE TOUCH ULTRA SYSTEM KIT) W/DEVICE LW Addl Instr:CHECK GLUCOSE 1-2 TIMES WEEKLY PRIOR TO BREAKFAST 1 11/01/2006 Active aspirin 325 MG tabletIndications:IN INA ASHBY WedDec 30, 2011 9:46 AM patient stopped 5 days ago for procedure. Take 1 tablet by mouth every other day. 13 03/01/2006 Active testosterone (ANDROGEL) 50 MG/5GM (1%) gel Place 1 packet onto the skin every other day. 15 01/12/2008 Active pravastatin (PRAVACHOL) 40 MG tablet Take 40 mg by mouth daily (every 24 hours). 12/22/2011 Active metFORMIN (GLUCOPHAGE) 1000 MG tablet Take 1,000 mg by mouth 2 times daily (with meals). 12/22/2011 Active Active Problems Problem Noted Date Diagnosed Date Testicular hypofunction 08/03/2005 Overview: LW Onset: ; Hypogonadism Primary Male Impaired glucose tolerance test 08/03/2005 Overview: LW Onset: 60Aer35 ; Glucose Intolerance (Impaired Tolerance) Tobacco use disorder 08/03/2005 Overview: LW Modifier: QUIT 1999; 30 P/Y ; Tobacco Abuse Benign neoplasm of colon 08/03/2005 Overview: LW Modifier: NEED REPEAT COLONOSCOPY 2006 LW Onset: 06/2003 ; Polyp Colon Adenomatous Primary open angle glaucoma 04/25/2004 Overview: LW Onset: 26Wkk15 ; Glaucoma Open Angle Primary Essential hypertension [...] Comments Blood Pressure 123/78 03/23/2017 1:26 PM ANIMAL HUSBANDMAN Pulse 63 03/23/2017 1:26 PM ANIMAL HUSBANDMAN Temperature - - Respiratory Rate 16 03/23/2017 1:26 PM ANIMAL HUSBANDMAN Oxygen Saturation 100% 03/23/2017 1:26 PM ANIMAL HUSBANDMAN Inhaled Oxygen Concentration - - Weight 99.8 kg (220 lb) 12/30/2011 9:52 AM CDT Height 180.3 cm (5' 11) 12/30/2011 9:52 AM CDT Body Mass Index 30.68 12/30/2011 9:52 AM CDT Plan of Treatment Health Maintenance Due Date Last Done Comments Medicare Annual Wellness Visit 1940 Zoster/Shingles (1 of 2) 1988 DTaP/Tdap/Td (1 - Tdap) 12/22/2001 12/21/2001, 10/04 Pneumococcal 65+ Yrs (2 - PCV) 08/03/2006 08/03/2005 Colonoscopy 03/23/2020 03/23/2017, 12/09 (Completed), 12/27/2006 COVID-19 Vaccine ( - season) 2023 Influenza (Season Ended) 2024 006, 03/09/2005, 04/23/2004, Additional history exists HepA Aged [...] on patient's age to complete this topic Procedures Procedure Name Priority Date/Time Associated Diagnosis Comments ENDOSCOPY, COLON, SCREENING/DIAGNOSTI C Routine 03/23/2017 12:07 PM ANIMAL HUSBANDMAN from Last 3 Months or Most Recently Relevant to Health Maintenance Results * Endoscopy, colon, diagnostic (03/23/2017 12:07 PM ANIMAL HUSBANDMAN) 03/23/2017 12:0 7 PM ANIMAL HUSBANDMAN Narrative [facility] ([facility]) - 03/23/2017 12:07 PM ANIMAL HUSBANDMAN Patient Name: Mo Daley Procedure Date: 03/23/2017 12:07 PM Date of : 1940 Admit Type: Outpatient Age: 76 Gender: Male Note Status: Finalized Attending MD: Henrique Palacios MD Procedure: ? Colonoscopy Indications: ? High risk colon cancer surveillance: ? Personal history of colonic polyps, ? Last colonoscopy: December 2011 Providers: ? Henrique Palacios MD, Destiney Veras, ? RN Referring MD: ? Medicines: ? Fentanyl 75 micrograms IV, Midazolam ? 1.5 mg IV Complications: ? No immediate complications. Procedure: ? After I obtained informed consent, ? the scope was passed under direct ? vision. Throughout the procedure, the ? patient's blood pressure, pulse, and ? oxygen saturations were monitored ? continuously. The [id number] was ? introduced through the anus and ? advanced to the terminal ileum, with ? identification of the appendiceal ? orifice and IC valve. The colonoscopy ? was performed without difficulty. The ? patient tolerated the procedure well. ? The quality of the bowel preparation ? was good. Findings: ? The terminal ileum appeared normal. ? A 3 mm polyp was found in the ascending colon. The ? polyp was sessile. The polyp was removed with a cold ? biopsy forceps. Resection and retrieval were complete. ? Two flat polyps were found in the transverse colon. ? The polyps were 5 mm in size. These polyps were ? removed with a cold snare. Resection and retrieval ? were complete. ? A 3 mm polyp was found in the descending colon. The ? polyp was sessile. The polyp was removed with a cold ? biopsy forceps. Resection and retrieval were complete. ? The exam was otherwise without abnormality. Impression: ?- The examined portion of the ileum ? was normal. ? - One 3 mm polyp in the ascending ? colon, removed with a cold biopsy ? forceps. Resected and retrieved. ? - Two 5 mm polyps in the transverse ? colon, removed with a cold snare. ? Resected and retrieved. ? - One 3 mm polyp in the descending ? colon, removed with a cold biopsy ? forceps. Resected and retrieved. ? - The examination was otherwise ? normal. Recommendation: ?- Await pathology results. ? - If the pathology report reveals ? adenomatous tissue, then repeat the ? colonoscopy for surveillance based on ? pathology results in 3 years. Procedure Code(s): ?? --- Professional --- ? 19930, Colonoscopy, flexible; with ? removal of tumor(s), polyp(s), or ? other lesion(s) by snare technique ? 32158, 59, Colonoscopy, flexible; ? with biopsy, single or multiple Diagnosis Code(s): ?? --- Professional --- ? Z86.010, Personal history of colonic ? polyps ? D12.2, Benign neoplasm of ascending ? colon ? D12.4, Benign neoplasm of descending ? colon ? D12.3, Benign neoplasm of transverse ? colon (hepatic flexure or splenic ? flexure) CPT copyright 2016 [employer]. All rights reserved. The codes documented in this report are preliminary and upon metal checker review may be revised to meet current compliance requirements. Henrique Palacios MD 03/23/2017 1:03:21 PM This document has been electronically signed. Number of Addenda: 0 Note Initiated On: 03/23/2017 12:07 PM ? Endoscopy Report Procedure Note Henrique Palacios MD - 03/23/2017 Patient Name: Mo Daley Procedure Date: 03/23/2017 [...] and oxygen saturations were monitored continuously. The [id number] was introduced through the anus and advanced [...] 3 years. Procedure Code(s): --- Professional --- 99937, Colonoscopy, flexible; with removal of tumor(s), polyp(s), or other lesion(s) by snare technique 44719, 59, Colonoscopy, flexible; with biopsy, single or multiple Diagnosis Code(s): --- Professional --- Z86.010, Personal history of colonic polyps D12.2, Benign neoplasm of ascending colon D12.4, Benign neoplasm of descending colon D12.3, Benign neoplasm of transverse colon (hepatic flexure or splenic flexure) CPT copyright 2016 [employer]. All rights reserved. The codes documented in this report are preliminary and upon metal checker review may be revised to meet current compliance requirements. Henrique Palacios MD 03/23/2017 1:03:21 PM This document has been electronically signed. Number of Addenda: 0 Note Initiated On: 03/23/2017 12:07 PM Endoscopy Report Henrique Palacios MD PN GI PROCEDURE [facility] Organization Address City/State/ZIP Co de Phone Number [facility] ([facility]) [place], [place] from Last 3 Months or Most Recently Relevant to Health Maintenance Care Teams Beader Relationship Specialty Start Date End Date Clinician, Not Found, [place] [address] PCP - General 06/10/20
--- OUTSIDE RECORDS SUMMARY | 2023-09-27 15:54 | XMS_ITS | Clinical Summary ---
Author Name Unknown Organization [facility] Address [place], [place] [address] Care Team Providers Care Produce Sorter Name Role Phone Maxwell Quinones MD Primary Care Provider [phone] Allergies No known active allergies Medications Medication Sig Dispensed Refills Start Date End Date Status multivitamin (MVI) tablet Take 1 tablet by mouth once daily. Active vitamin B complex (B COMPLEX 1) tablet Take 1 tablet by mouth once daily. Active nitroglycerin (NITROSTAT) 0.[address] 0.4 mg under the tongue every 5 minutes if needed for Chest Pain. Active cholecalciferol (VITAMIN D-3) 2,000 unit capsule Take 2,000 Units by mouth once daily. Active latanoprost (XALATAN) 0.005 % ophthalmic solution Place 1 Drop into both eyes at bedtime. Active dorzolamide (TRUSOPT) 2 % ophthalmic solution Place 1 Drop into left eye 2 times daily. Active metoprolol succinate (TOPROL XL) 25 mg Sustained-Release tablet Take 25 mg by mouth once daily. Active aspirin (ECOTRIN) 81 mg enteric coated [...] 4000 mg in 24 hrs. 40 tablet 04/14/2015 Active ondansetron (ZOFRAN ODT) 4 mg disintegrating tabletIndications:S/ P CABG x [address] 1 tablet on the tongue every 8 hours if needed for Nausea/Vomiting. 10 tablet 04/14/2015 Active metFORMIN (GLUCOPHAGE) 500 mg tablet [...] Agents: No - primary concerned persons include: Anisa/daughter/[phone]-cell Who is the backup family spokesperson: Name/relationship/phone (see row detail) Thea/daughter/[phone]-cell/ Breanne/daughter [phone] Patient has Advance Care Plan Documents (Health Care Directive, POLST): No, Health Care Packet given to patient. Patient has identified Specific Treatment Preferences: No Specific limits to treatment preferences NOT identified: ASSUME FULL TREATMENT. 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
== END 2023-09-27 15:51 | disposition home or self-care (01) ==
LOC: LKVREF 15:52
PROVIDERS: PCP Family Medicine; Visit Provider Family Medicine
DX: I10 Essential (primary) hypertension (principal)
CPT/HCPCS: 80048

== ENCOUNTER 2024-03-14 10:26 | Outpatient (CLI) | payer MEDICARE, BC, SELFPAY ==
--- OUTSIDE RECORDS SUMMARY | 2024-03-16 10:55 | XMS_ITS | Clinical Summary ---
Author Organization [facility] Address [address] [place] [address] Care Team Providers Care Vehicle Fare Collector Name Role Phone Clinician, Not Found MD Primary Care Provider Un available Source Comments You are receiving this document as you are listed as the primary care provider,follow-up provider, or the patient has been referred to you for consultation.This is in compliance with the Medicare and[facility] EHR Incentive Program,which states Providers who transition their patient to another setting of careor provider of care or refers their patient to another provider of care shouldprovide summary care record for each transition of care or referral. Formerly [facility] Allergies No known active allergies Medications [...] Noted Date Diagnosed Date Testicular hypofunction 08/03/2005 Overview (12/30/2016): LW Onset: ; Hypogonadism Primary Male Impaired glucose tolerance test 08/03/2005 Overview (12/30/2016): LW Onset: [id number] ; Glucose Intolerance (Impaired Tolerance) Tobacco use disorder 08/03/2005 Overview (12/30/2016): LW Modifier: QUIT 2000; 30 P/Y ; Tobacco Abuse Benign neoplasm of colon 08/03/2005 Overview (12/30/2016): LW Modifier: NEED REPEAT COLONOSCOPY 2006 LW Onset: 06/2003 ; Polyp Colon Adenomatous Primary open angle glaucoma 04/25/2004 Overview (12/30/2016): LW Onset: [id number] ; Glaucoma Open Angle Primary Essential hypertension 10/14/2002 Overview (12/30/2016): Hypertension Immunizations Name Administration Dates Next Due [...] Comments Blood Pressure 123/78 03/23/2017 1:26 PM KETTLE SKIMMER Pulse 63 03/23/2017 1:26 PM KETTLE SKIMMER Temperature - - Respiratory Rate 16 03/23/2017 1:26 PM KETTLE SKIMMER Oxygen Saturation 100% 03/23/2017 1:26 PM KETTLE SKIMMER Inhaled Oxygen Concentration - - Weight 99.8 [...] 65+ Yrs (2 - PCV) 08/03/2006 08/03/2005 RSV (1 - 1-dose 75+ series) 2013 Colonoscopy 03/23/2020 03/23/2017, 12/09 (Completed), 12/27/2006 COVID-19 Vaccine (1 - 2023- season) 2024 Influenza (#1) 2024 02/15/2006, 02/09, 04/23/2004, Additional history exists HepA [...] on patient's age to complete this topic Infant RSV Aged Out No longer eligi ble based on patient's age to complete this topic MCV4 Aged Out No longer eligi ble based on patient's age to complete this topic Procedures Procedure Name Priority Date/Time Associated Diagnosis Comments ENDOSCOPY, COLON, SCREENING/DIAGNOSTI C Routine 03/23/2017 12:07 PM KETTLE SKIMMER from Last 3 Months or Most Recently Relevant to Health Maintenance Results * Endoscopy, colon, diagnostic (03/23/2017 12:07 PM KETTLE SKIMMER) Anatomical Region Laterality Modality Other 03/23/2017 12:0 7 PM KETTLE SKIMMER Narrative 03/23/2017 12:07 PM KETTLE SKIMMER Patient Name: Mo Daley Procedure Date: 03/23/2017 [...] oxygen saturations were monitored ? continuously. The [id number] was ? introduced through the anus and [...] Procedure Code(s): ?? --- Professional --- ? 48494, Colonoscopy, flexible; with ? removal of tumor(s), polyp(s), or ? other lesion(s) by snare technique ? 07107, 59, Colonoscopy, flexible; ? with biopsy, single or multiple Diagnosis Code(s): ?? --- Professional --- ? Z86.010, Personal history of colonic ? polyps ? D12.2, Benign neoplasm of ascending ? colon ? D12.4, Benign neoplasm of descending ? colon ? D12.3, Benign neoplasm of transverse ? colon (hepatic flexure or splenic ? flexure) CPT copyright 2016 [employer]. All rights reserved. The codes documented in this report are preliminary and upon rubbing bed operator review may be revised to meet [...] and oxygen saturations were monitored continuously. The [id number] was introduced through the anus and advanced [...] 3 years. Procedure Code(s): --- Professional --- 41242, Colonoscopy, flexible; with removal of tumor(s), polyp(s), or other lesion(s) by snare technique 16555, 59, Colonoscopy, flexible; with biopsy, single or multiple Diagnosis Code(s): --- Professional --- Z86.010, Personal history of colonic polyps D12.2, Benign neoplasm of ascending colon D12.4, Benign neoplasm of descending colon D12.3, Benign neoplasm of transverse colon (hepatic flexure or splenic flexure) CPT copyright 2016 [employer]. All rights reserved. The codes documented in this report are preliminary and upon rubbing bed operator review may be revised to meet current compliance requirements. Henrique Palacios MD 03/23/2017 1:03:21 PM This document has been electronically signed. Number of Addenda: 0 Note Initiated On: 03/23/2017 12:07 PM Endoscopy Report Henrique Palacios MD ET GI PROCEDURE ORDE SERA from Last 3 Months or Most Recently Relevant to Health Maintenance Care Teams Vehicle Fare Collector Relationship Specialty Start Date End Date Clinician, Not Found, [place] [address] PCP - General 06/10/20
--- OUTSIDE RECORDS SUMMARY | 2024-03-16 10:55 | XMS_ITS | Clinical Summary ---
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 Overview (04/09/2015): Coronary artery bypass grafting x3, left internal mammary artery to left anterior descending, saphenous vein to posterior descending, saphenous vein to ramus intermedius ACP (advance care planning) 04/09/2015 Overview (04/09/2015): Patient has identified Health Care Agent(s): No Add Health Care Agents: No - primary concerned persons include: Anisa/daughter/[phone] Who is the backup family spokesperson: Name/relationship/phone (see row detail) Nileshy/daughter/[phone]-cell/ Breanne/daughter [phone] Patient has Advance Care Plan Documents (Health Care Directive, POLST): No, Health Care Packet given to patient. Patient has identified Specific Treatment Preferences: No Specific limits to treatment preferences NOT identified: ASSUME FULL TREATMENT. Coronary artery disease involving [place] coronar y artery 04/06/2015 Overview (04/06/2015): 3 vessel disease on coronary angiogram from 03/2015 NSTEMI (non-ST elevated myocardial infarction) 1 06/05/2014 HTN (hypertension) 04/05/2015 Hyperlipidemia 04/05/2015 Type 2 diabetes mellitus without complication Testicular hypofunction 08/03/2005 Overview (04/06/2015): Overview: LW Onset: Benign neoplasm of colon 08/03/2005 Overview (04/06/2015): Overview: LW Modifier: NEED REPEAT COLONOSCOPY 2006 [...] 65+ (1 of 1 - PCV) 2003 RSV vaccine for adults or (1 - 1-dose 75+ series) 2013 COVID-19 vaccine series ( season) 2024 09/30/2021, 03/17/2021, 07/02/2020, Additional history exists Influenza for age 65+ 01/09/2024 Advance Directives Documents on File Type Date Recorded Patient [employer]er [employer] anation Healthcare Directive 04/05/2015 12:00 AM 02-17-01 * Full Code (Latest Code Status on File) Date Activated Date Inactivated Comments 04/08/2015 4:25 PM 04/14/2015 2:11 PM * Full Code Date Activated Date Inactivated Comments 04/05/2015 1:12 PM 04/08/2015 4:25 PM Care Teams Criminal Intelligence Specialist Relationship Specialty Start Date End Date Maxwell Quinones MD PCP - General Family Practice 04/11/15
== END 2024-03-14 10:27 | disposition home or self-care (01) ==
LOC: NFLDREF 03-16 10:53
PROVIDERS: PCP Family Medicine; Referring Provider Family Medicine; Visit Provider Family Medicine
DX: Z01.818 Encounter for other preprocedural examination (principal); E13.9 Other specified diabetes mellitus without complications; E78.2 Mixed hyperlipidemia; I10 Essential (primary) hypertension; L30.9 Dermatitis, unspecified
CPT/HCPCS: 80048; 80061

== ENCOUNTER 2024-09-27 09:40 | Outpatient (CLI) | payer MEDICARE, BC, SELFPAY | END 2024-09-27 09:41 | disposition home or self-care (01) | LOC: LKVREF 09:41 | PROVIDERS: PCP Family Medicine; Visit Provider Family Medicine | DX: E13.9 Other specified diabetes mellitus without complications (principal); Z79.899 Other long term (current) drug therapy; Z13.21 Encounter for screening for nutritional disorder | CPT/HCPCS: 82607 ==

== ENCOUNTER 2024-11-20 11:29 | Outpatient (CLI) | payer MEDICARE, BC, SELFPAY | END 2024-11-20 11:30 | disposition home or self-care (01) | PROVIDERS: PCP Family Medicine; Visit Provider Physician Assistant Medical | DX: L03.115 Cellulitis of right lower limb (principal); I10 Essential (primary) hypertension | CPT/HCPCS: 80053; 86618; 87070; 87186; 87468; 87469; 87484; 87798 ==